=== PATIENT | female | born 1970 | race Caucasian/White ===

== ENCOUNTER 2018-07-22 01:40 | Outpatient (RCR) | payer OTHER, SELFPAY ==
[2018-07-08] MEDS: Normal Saline Flush 10 ML SYR IVP (07:30)
[2018-07-15] MEDS: Normal Saline Flush 10 ML SYR IVP (07:10)
[2018-07-22] MEDS: Normal Saline Flush 10 ML SYR IVP (07:21)
== END 2018-07-29 23:59 | disposition home or self-care (01) ==
LOC: INF 01:40
PROVIDERS: PCP Physician Assistant Medical; Visit Provider Family Medicine
DX: D50.9 Iron deficiency anemia, unspecified (principal)
CPT/HCPCS: 96365; 96366; J1756

== ENCOUNTER 2018-12-25 12:49 | Outpatient (REF) | payer MEDICAID, SELFPAY ==
[2018-12-25 19:47] LABS: Abs Immature Grans 0.01 k/cumm (0.0-0.09); Absolute Basophil Count 0.05 k/cumm (0.0-0.2); Absolute Eosinophil Count 0.18 k/cumm (0.0-0.7); Absolute Lymphocyte Count 0.84 k/cumm (1.2-3.4); Absolute Monocyte Count 0.62 k/cumm (0.11-0.7); Absolute Neutrophil Count 3.91 k/cumm (1.2-6.7); Basophils % 0.9; Eosinophils % 3.2; HCT 41.6 % (36.0-46.0); HGB 13.9 g/dL (12.0-15.5); Immature Grans % 0.2; Mean Corp. HGB Concentration 33.4 g/dL (32.0-36.0); Mean Corpuscular Volume 92.9 fL (80-95); Mean Platelet Volume 11.9 fL (8.0-11.0); Monocytes % 11.1; Neutrophils % 69.6; Platelet Count 257 x1000/uL (130-400); RBC 4.48 m/cumm (4.00-5.20); RBC Distribution Width 12.8 % (11.7-14.6); White Blood Cell Count 5.61 k/cumm (4.4-10.8)
[2018-12-25 20:16] LABS: TSH 2.29 uIU/mL (0.358-3.74)
[2018-12-25 20:27] LABS: Cholesterol 255 mg/dL (50-200); HDL Cholesterol 44 mg/dL (40-60); LDL CHOLESTEROL 178 mg/dL (<100); Triglyceride 170 mg/dL (30-150)
[2018-12-28 10:10] LABS: Anion Gap 13.9 mmol/L (3-11); BUN 13 mg/dL (7-18); CO2 23.1 mmol/L (21.0-32.0); CREATININE 0.81 mg/dL (0.55-1.02); Calcium 9.6 mg/dL (8.5-10.1); Chloride 101 mmol/L (98-107); Glucose 97 mg/dL (70-100); Sodium 138 mmol/L (136-145)
== END 2018-12-25 13:09 ==
LOC: NCHCN 12:49
PROVIDERS: PCP Physician Assistant Medical; Visit Provider Physician Assistant Medical
DX: I10 Essential (primary) hypertension (principal); D50.9 Iron deficiency anemia, unspecified; E03.9 Hypothyroidism, unspecified
CPT/HCPCS: 80048; 80061; 83721; 84443; 85025

== ENCOUNTER 2019-06-28 21:43 | Outpatient (REF) | payer MEDICAID, SELFPAY ==
[2019-06-28 21:59] LABS: Abs Immature Grans 0.01 k/cumm (0.0-0.09); Absolute Basophil Count 0.03 k/cumm (0.0-0.2); Absolute Eosinophil Count 0.18 k/cumm (0.0-0.7); Absolute Lymphocyte Count 1.02 k/cumm (1.2-3.4); Absolute Monocyte Count 0.39 k/cumm (0.11-0.7); Absolute Neutrophil Count 5.11 k/cumm (1.2-6.7); Basophils % 0.4; Eosinophils % 2.7; HGB 11.3 g/dL (12.0-15.5); Immature Grans % 0.1; Lymphocytes % 15.1; Mean Corp. HGB Concentration 32.3 g/dL (32.0-36.0); Mean Corpuscular Hemoglobin 28.8 pg (27.0-33.0); Mean Corpuscular Volume 89.1 fL (80-95); Mean Platelet Volume 11.2 fL (8.0-11.0); Monocytes % 5.8; Neutrophils % 75.9; Platelet Count 380 x1000/uL (130-400); RBC 3.93 m/cumm (4.00-5.20); RBC Distribution Width 13.7 % (11.7-14.6); White Blood Cell Count 6.74 k/cumm (4.4-10.8)
[2019-06-28 22:06] LABS: Calculated LDL 169 mg/dL; Cholesterol 240 mg/dL (50-200); HDL Cholesterol 43 mg/dL (40-60); Triglyceride 143 mg/dL (30-150)
== END 2019-06-28 22:03 ==
LOC: NCHCN 21:43
PROVIDERS: PCP Physician Assistant Medical; Visit Provider Physician Assistant Medical
DX: Z13.220 Encounter for screening for lipoid disorders (principal); Z00.00 Encounter for general adult medical examination without abnormal findings; D50.9 Iron deficiency anemia, unspecified
CPT/HCPCS: 80061; 85025

== ENCOUNTER 2020-03-16 09:07 | Outpatient (REF) | payer MEDICAID, SELFPAY ==
[2020-03-16 19:26] LABS: ALT 32 U/L (14-59); AST 20 U/L (15-37); Albumin 3.9 g/dL (3.4-5.0); Alkaline Phosphatase 74 U/L (46-116); BUN 16 mg/dL (7-18); Bilirubin, Total 0.2 mg/dL (0.2-1.0); CREATININE 0.83 mg/dL (0.55-1.02); Calcium 9.5 mg/dL (8.5-10.1); Calculated LDL 95 mg/dL (<100); Chloride 103 mmol/L (98-107); Cholesterol 151 mg/dL (<200); Glucose 102 mg/dL (74-106); HDL Cholesterol 40 mg/dL (40-60); Potassium 3.7 mmol/L (3.5-5.1); Sodium 139 mmol/L (136-145); Total Protein 6.9 g/dL (6.4-8.2); Triglyceride 83 mg/dL (<150)
== END 2020-03-16 09:27 ==
LOC: NCHCN 09:07
PROVIDERS: PCP Physician Assistant Medical; Visit Provider Physician Assistant Medical
DX: I25.10 Atherosclerotic heart disease of native coronary artery without angina pectoris (principal)
CPT/HCPCS: 80053; 80061

== ENCOUNTER 2020-12-08 16:13 | Outpatient (REF) | payer MEDICAID, SELFPAY ==
[2020-12-08 18:34] LABS: Abs Immature Grans 0.01 10^3/uL (0.0-0.06); Absolute Basophil Count 0.09 10^3/uL (0.0-0.2); Absolute Eosinophil Count 0.09 10^3/uL (0.0-0.7); Absolute Lymphocyte Count 1.09 10^3/uL (1.2-3.4); Absolute Monocyte Count 0.57 10^3/uL (0.1-0.8); Basophils % 1.2; Eosinophils % 1.2; HCT 37.4 % (36.0-46.0); HGB 12.1 g/dL (11.2-15.7); Immature Grans % 0.1; Lymphocytes % 14.2; MCH 27.6 pg (27.0-33.0); MCHC 32.4 % (32.0-36.0); MCV 85.4 fL (80-95); MPV 11.3 fL (8.0-11.0); Monocytes % 7.5; Neutrophils % 75.8; Nucleated RBC 0 %; Platelet Count 391 10^3/uL (130-400); RBC 4.38 10^6/uL (3.93-5.22); RDW-SD 46.9 fL; WBC 7.65 10^3/uL (4.4-10.8)
[2020-12-08 19:07] LABS: ALT 20 U/L (14-59); AST 15 U/L (15-37); Albumin 3.8 g/dL (3.4-5.0); Alkaline Phosphatase 76 U/L (46-116); Anion Gap 17.4 mmol/L (3-11); BUN 19 mg/dL (7-18); Bilirubin, Total 0.4 mg/dL (0.2-1.0); CO2 19.6 mmol/L (21.0-32.0); CREATININE 0.8 mg/dL (0.55-1.02); Calcium 9.7 mg/dL (8.5-10.1); Calculated LDL 135 mg/dL (<100); Chloride 99 mmol/L (98-107); Cholesterol 193 mg/dL (<200); Glucose 83 mg/dL (74-106); HDL Cholesterol 37 mg/dL (40-60); Potassium 3.3 mmol/L (3.5-5.1); Sodium 136 mmol/L (136-145); TSH 1.99 uIU/mL (0.36-3.74); Total Protein 7.2 g/dL (6.4-8.2); Triglyceride 108 mg/dL (<150)
== END 2020-12-08 16:14 | disposition home or self-care (01) ==
LOC: NCHCN 16:13
PROVIDERS: PCP Physician Assistant Medical; Visit Provider Physician Assistant Medical
DX: E03.9 Hypothyroidism, unspecified (principal); I10 Essential (primary) hypertension; E78.5 Hyperlipidemia, unspecified; D50.9 Iron deficiency anemia, unspecified
CPT/HCPCS: 80053; 80061; 84443; 85025

== ENCOUNTER 2021-03-09 10:38 | Outpatient (REF) | payer MEDICAID, SELFPAY ==
[2021-03-09 14:35] LABS: Anion Gap 6.9 mmol/L (3-11); BUN 18 mg/dL (7-18); CO2 28.1 mmol/L (21.0-32.0); CREATININE 0.7 mg/dL (0.55-1.02); Calcium 9.3 mg/dL (8.5-10.1); Chloride 107 mmol/L (98-107); Glucose 103 mg/dL (74-106); Potassium 3.6 mmol/L (3.5-5.1); Sodium 142 mmol/L (136-145)
== END 2021-03-09 10:39 | disposition home or self-care (01) ==
LOC: NCHCN 10:38
PROVIDERS: PCP Physician Assistant Medical; Visit Provider Physician Assistant Medical
DX: I10 Essential (primary) hypertension (principal)
CPT/HCPCS: 80048

== ENCOUNTER 2021-04-13 12:01 | Outpatient (REF) | payer MEDICAID, SELFPAY ==
--- NOTE | 2021-04-13 10:10 | PAPFT_PTH ---
PATIENT: Jaclyn Carver LOC: [facility]#:[id number] AGE/SX: 50/F ROOM: RE04/13/[address]: Maryanne Buckley : 1970 BED: DIS: 04/13/2021 SPEC #: [id number] RECD: 04/16/21 13:05 STATUS: ARCELIA REМарина #: [id number] CHAPIS: 04/13/21 10:[address]: Maryanne Buckley DEPT: [facility] Cytology RECD BY: Sarah Aguirre Tissues: 1 - CX/ENDOCX FOR PAP SMEARS Procedures: PAP THIN PREP/UVM Screening HPV DNA PROBE Comments: [id number]
== END 2021-04-13 12:02 | disposition home or self-care (01) ==
LOC: NCHCN 12:01
PROVIDERS: PCP Physician Assistant Medical; Visit Provider Physician Assistant Medical
DX: Z12.4 Encounter for screening for malignant neoplasm of cervix (principal); Z00.00 Encounter for general adult medical examination without abnormal findings; Z11.51 Encounter for screening for human papillomavirus (HPV)
CPT/HCPCS: 88142; 87624

== ENCOUNTER 2021-12-17 02:13 | Outpatient (CLI) | payer SELFPAY ==
--- NOTE | 2021-12-17 | DI.RAD_ITS ---
Exam(s) RF BARIUM SWALLOW EXAM: RF BARIUM SWALLOW CLINICAL HISTORY: DYSPHAGIA,R13.10 TECHNIQUE: 2D and realtime digital imaging was performed. CONTRAST MATERIAL: Oral barium Oral water soluble contrast was administered. COMPARISON: CR ABD FLAT UPRIGHT PA CHEST from 12/08/2014 FINDINGS: This patient has history of apparent esophageal stricture for which she underwent endoscopic dilatati on over 5 years ago. Feels some returning symptoms. ESOPHAGRAM: This study was performed both standing and recumbent, using single and air contrast technique. Swallowing mechanism appears intact and there was no aspiration evident. No obvious hypertense upper esophageal sphincter. Although not evident during actual fluoroscopy, review of the images after the procedure reveal a claire y thin web at C3 level on a single image, possibly significant. Remainder of the soft against appears normal with normal caliber. GE junction appears unremarkable w ith no evidence of hiatal hernia nor Schatzki ring. There are no diverticuli evident in distal esoph getachew. No evidence of achalasia. Few transient tertiary waves were noted. There is no evidence of o bvious reflux.. Surgical clips from prior cholecystectomy were noted. IMPRESSION: 1. GE junction appears unremarkable. No evidence of hiatal hernia, Schatzki ring, nor stricture at t his level. 2. 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 No aspiration evident. RADIATION DOSE DELIVERED: Ka,r= mGy
[2021-12-17] MEDS: Barium Sulfate 60% W/V 355 ML BTL PO (09:56)
== END 2021-12-17 02:33 ==
LOC: DI 02:17
PROVIDERS: PCP Physician Assistant Medical; Visit Provider Physician Assistant Medical
DX: R13.10 Dysphagia, unspecified (principal)
CPT/HCPCS: 74221; J3490

== ENCOUNTER 2022-10-23 17:54 | Outpatient (REF) | payer BC, SELFPAY ==
[2022-10-23 21:01] LABS: ALT 21 U/L (14-59); AST 24 U/L (15-37); Albumin 3.7 g/dL (3.4-5.0); Alkaline Phosphatase 85 U/L (46-116); Anion Gap 10.2 mmol/L (3-11); BUN 19 mg/dL (7-18); CO2 25.8 mmol/L (21.0-32.0); CREATININE 0.6 mg/dL (0.55-1.02); Calcium 10.2 mg/dL (8.5-10.1); Calculated LDL 159 mg/dL (<100); Chloride 104 mmol/L (98-107); Cholesterol 246 mg/dL (<200); Estimated GFR 107.26 (mL/min/1.73m2); Glucose 97 mg/dL (74-106); HDL Cholesterol 58 mg/dL (40-60); Potassium 3.4 mmol/L (3.5-5.1); Sodium 140 mmol/L (136-145); Total Protein 7.2 g/dL (6.4-8.2); Triglyceride 145 mg/dL (<150)
[2022-10-23 23:33] LABS: TSH 4.41 uIU/mL (0.36-3.74)
[2022-10-23 23:47] LABS: Bilirubin, Total 0.2 mg/dL (0.2-1.0)
== END 2022-10-23 17:55 | disposition home or self-care (01) ==
LOC: NCHCN 17:54
PROVIDERS: PCP Physician Assistant Medical; Visit Provider Physician Assistant Medical
DX: Z00.00 Encounter for general adult medical examination without abnormal findings (principal); E03.9 Hypothyroidism, unspecified; I25.10 Atherosclerotic heart disease of native coronary artery without angina pectoris
CPT/HCPCS: 80053; 80061; 84443

== ENCOUNTER 2023-01-14 15:24 | Outpatient (REF) | payer BC, SELFPAY ==
[2023-01-14 16:04] LABS: HGB 9.1 g/dL (11.2-15.7)
== END 2023-01-14 15:25 | disposition home or self-care (01) ==
LOC: NCHCN 15:24
PROVIDERS: PCP Physician Assistant Medical; Visit Provider Physician Assistant Medical
DX: Z00.00 Encounter for general adult medical examination without abnormal findings (principal); D64.9 Anemia, unspecified
CPT/HCPCS: 85018

== ENCOUNTER 2024-02-04 17:59 | Outpatient (REF) | payer BC, SELFPAY ==
[2024-02-04 19:49] LABS: Abs Immature Grans 0.03 10^3/uL (0.0-0.06); Absolute Basophil Count 0.06 10^3/uL (0.0-0.2); Absolute Eosinophil Count 0.09 10^3/uL (0.0-0.7); Absolute Lymphocyte Count 1.17 10^3/uL (1.2-3.4); Absolute Monocyte Count 0.37 10^3/uL (0.1-0.8); Absolute Neutrophil Count 3.72 10^3/uL (1.2-6.7); Basophils % 1.1 %; Eosinophils % 1.7 %; HCT 33.7 % (36.0-46.0); HGB 10.4 g/dL (11.2-15.7); Immature Grans % 0.6 %; Lymphocytes % 21.5 %; MCH 27.4 pg (27.0-33.0); MCHC 30.9 % (32.0-36.0); MCV 89 fL (80-95); MPV 10.7 fL (8.0-11.0); Monocytes % 6.8 %; Neutrophils % 68.3 %; Platelet Count 295 10^3/uL (130-400); RDW 14.1 % (11.7-14.6); RDW-SD 45.6 fL; WBC 5.44 10^3/uL (4.4-10.8)
[2024-02-04 20:18] LABS: ALT 22 U/L (14-59); AST 16 U/L (15-37); Albumin 4.1 g/dL (3.4-5.0); Alkaline Phosphatase 77 U/L (46-116); Anion Gap 8.4 mmol/L (3-11); BUN 14 mg/dL (7-18); Bilirubin, Total 0.2 mg/dL (0.2-1.0); CO2 29.6 mmol/L (21.0-32.0); CREATININE 0.8 mg/dL (0.55-1.02); Calcium 10.7 mg/dL (8.5-10.1); Chloride 106 mmol/L (98-107); Glucose 88 mg/dL (74-106); Potassium 4.4 mmol/L (3.5-5.1); Sodium 144 mmol/L (136-145); TSH (W/Ref FT4) 3.44 uIU/mL (0.36-3.74); Total Protein 7.5 g/dL (6.4-8.2)
== END 2024-02-04 18:00 | disposition home or self-care (01) ==
LOC: NCHCN 17:59
PROVIDERS: PCP Physician Assistant Medical; Visit Provider Physician Assistant Medical
DX: K92.89 Other specified diseases of the digestive system (principal); E03.9 Hypothyroidism, unspecified
CPT/HCPCS: 80053; 84443; 85025

== ENCOUNTER 2024-02-20 07:08 | Emergency (ER) | payer BC, SELFPAY ==
[2024-02-20 07:11] VITALS: BP 142/93; PULSE 72; RESP 16; TEMP 36.9; O2SAT 98
[2024-02-20 07:28] VITALS: BP 142/93; PULSE 72; RESP 16; TEMP 36.9; O2SAT 98
--- NOTE | 2024-02-20 07:30 | RT.EKG_ITS ---
APPROVED REPORT Exam: Resting ECG Reason for Exam: chest burning Patient Location: E HR:59 bpm ECG Measurements Heart Rate 59 AXIS AK 166 P 67 QRSd 105 QRS 83 QT 414 T 79 QTc 412 Conclusion Sinus bradycardia...rate< [address] elevation, anterior leads...ST >0.15mV in V1-V4 Physician: Minimal non-tombstoning ST elevation. Inconsistent with STEMI. No Depressions
[2024-02-20] MEDS: Famotidine 20 MG/2 ML VIAL IVP (07:52)
[2024-02-20] MEDS: Pantoprazole 40 MG VIAL IVP (07:53)
--- NOTE | 2024-02-20 07:55 | ED.GENADUL_ITS ---
Discharge Plan Disposition Patient Disposition: Home Condition: Good Discharge Details Clinical Impression: Pancreatitis, GERD without esophagitis Primary Care Provider: Maryanne Buckley ED Provider: Ace Hernandez Home Meds and New Rx's Prescriptions: New famotidine 40 mg tablet 40 mg PO BID Qty: 60 0RF Continued aspirin [Adult Aspirin Regimen] 81 mg tablet,delayed release (DR/EC) 81 mg PO DAILY zaleplon 10 mg capsule 10 mg PO QHS PRN Rx Instructions: must avoid high-fat meal/food immediately before taking dose sumatriptan succinate 100 mg tablet 100 mg PO ONCE clonazepam 0.5 mg tablet 0.5 mg PO BID rosuvastatin 5 mg tablet 5 mg PO DAILY aripiprazole 5 mg tablet 5 mg PO DAILY lisinopril 20 mg tablet 5 mg PO DAILY scopolamine base [Transderm-Scop] 1 mg over 3 days patch 3 day 1 patch transdermal Q3D PRN escitalopram oxalate 10 mg tablet 10 mg PO DAILY omeprazole [Prilosec] 40 MG capsule,delayed release(DR/EC) 1 cap PO DAILY levothyroxine [Synthroid] 50 MCG tablet 50 mcg PO DAILY multivitamin 1 EACH capsule 1 cap PO HS cetirizine [Zyrtec] 10 MG capsule 10 mg PO DAILY escitalopram oxalate [Lexapro] 20 MG tablet 20 mg PO DAILY calcium carb and citrate-vitD3 1 EACH tablet extended release pantoprazole [Protonix] [address] for susp in packet 40 mg PO DAILY AM Qty: 30 0RF ondansetron 4 MG tablet,disintegrating 4 mg PO Q6H PRN PRN (Reason: Nausea / Vomiting) Qty: 15 0RF Discontinued ibuprofen 800 MG tablet 800 mg PO Q8H PRN Qty: 30 Discharge Instructions Instructions: Pancreatitis (ED), GERD (Gastroesophageal Reflux Disease) (ED) Additional Instructions: As we discussed together, my chief concern is that your symptoms are still secondary to notable reflux and GERD. The sensation for vomiting is likely brought about more so and made worse by your mild pancreatitis. Please continue to stick with a very bland diet, high in fluids, low in fat, sugars, oils, tomato-based products, and citrus products over the next few weeks. Please continue to take your previous medications that were prescribed, and also take the famotidine now as prescribed. Please take your Carafate 2 hours before going to bed. Please use Maalox 2-3 times per day as needed for intermittent symptom management. Please avoid any mint based products. Please take the Zofran as needed for nausea. Please follow-up closely with your primary care provider and surgeon for your EGD. If you notice any worsening of your symptoms, or any new symptoms such as vomiting, diarrhea, fever, chills, shortness of breath, chest pain, numbness, weakness, or fainting , please return immediately to the emergency department for reevaluation. Please follow up with your primary care provider as soon as possible for reassessment and reevaluation. As always, it was a pleasure participating in your medical care today. Stand Alone Forms: Work Release Referrals: Maryanne Buckley PA [Primary Care Provider] - Discharge Data Discharge Date/Time-TO BE ENTERED AT DEPARTURE: 02/20/24 09:01 HPI General Date/Time Provider Initiated Documentation: 02/20/24 07:16 . HPI Narrative: This is a pleasant 53-year-old female who presents today for evaluation of burning sensation in the epigastrium. Patient states that about 2 weeks ago she had an episode of vomiting blood, she went weeks Hospital where she was noted to be mildly anemic which is chronic for her. She had a eventual resolution of her symptoms, and was discharged home. Her primary care provider then prescribed Protonix 40 mg daily and Carafate 3 times per day. She has an outpatient EGD scheduled for March 16. She has noted over the last few days that her symptoms and burning have continued. She has not had any more hematemesis. She will occasionally vomit just a little bit. It is worse in the morning when she wakes up and at night. If she has completely eliminated tomato-based products, spicy foods, carbonated beverages, or citrus foods from her diet. She states that she feels that the Carafate helps the most. She is presenting for further evaluation as her symptoms have been continuing. No other complaints at this time. No diarrhea. No dark or tarry stools. She denies any other complaints. No chest pain or exertional chest discomfort. No shortness of breath. No history of heart attack/NV/stroke. Related Data Home Medications Medication Instructions Recorded Confirmed cetirizine 10 mg capsule (Zyrtec) 10 mg PO DAILY 01/21/14 12/08/14 levothyroxine 50 mcg tablet 50 mcg PO DAILY 01/21/14 12/08/14 (Synthroid) multivitamin 1 cap PO HS 01/21/14 12/08/14 omeprazole 40 mg capsule,delayed 1 cap PO DAILY 01/21/14 12/08/14 release (Prilosec) calcium carb,cit ER 600 mg-vit D3 12/08/14 12/08/14 12.5 mcg (500 unit) tablet,ext.rel escitalopram oxalate 20 mg tablet 20 mg PO DAILY 12/08/14 12/08/14 (Lexapro) ondansetron 4 mg disintegrating 4 mg PO Q6H PRN PRN Nausea / 12/08/14 tablet Vomiting ##15 pantoprazole 40 mg granules 40 mg PO DAILY AM ##30 12/08/14 delayed-release for susp in packet (Protonix) aripiprazole 5 mg tablet 5 mg PO DAILY 01/15/22 aspirin 81 mg tablet,delayed 81 mg PO DAILY 01/15/22 release (Adult Aspirin Regimen) clonazepam 0.5 mg tablet 0.5 mg PO BID 01/15/22 escitalopram oxalate 10 mg tablet 10 mg PO DAILY 01/15/22 lisinopril 20 mg tablet 5 mg PO DAILY 01/15/22 rosuvastatin 5 mg tablet 5 mg PO DAILY 01/15/22 scopolamine base 1 mg over 3 days 1 patch transdermal Q3D PRN 01/15/22 transdermal patch (Transderm-Scop) sumatriptan succinate 100 mg tablet 100 mg PO ONCE 01/15/22 zaleplon 10 mg capsule 10 mg PO QHS PRN 01/15/22 famotidine 40 mg tablet 40 mg PO BID #60 tabs 02/20/24 Previous Rx's Medication Instructions Recorded ondansetron 4 mg disintegrating 4 mg PO Q6H PRN PRN Nausea / 12/08/14 tablet Vomiting ##15 pantoprazole 40 mg granules 40 mg PO DAILY AM ##30 12/08/14 delayed-release for susp in packet (Protonix) famotidine 40 mg tablet 40 mg PO BID #60 tabs 02/20/24 Allergies Allergy/AdvReac Type Severity Reaction Status Date / Time NSAIDS (Non-Steroidal Allergy Severe Other (See Verified 01/15/22 13:53 Anti-Inflamma Comment) prednisone Allergy Unknown Verified 01/15/22 13:53 adhesive AdvReac Mild Skin Rash Unverified 12/08/14 17:20 enviornmental Allergy Mild irritated Uncoded 12/08/14 17:20 eyes,sneezing General Stated Complaint: Nausea/Vomit/Diar BRAXTON: 3 Review of Systems All systems reviewed & are unremarkable except as noted in HPI and below Exam Narrative Exam Narrative: 1.Const: Well-nourished, Well-developed, appearing stated age 2.Eyes: PERRL, no conjunctival injection, and symmetrical lids. 3.ENT: Atraumatic external nose and ears. Moist MM. Neck: Symmetric, trachea midline, No thyromegaly. 4.CVS: +S1/S2, No murmurs or gallops. Peripheral pulses 2+ and equal in all e xtremities. Brisk capillary refill in all extremities. 5.RESP: Unlabored respiratory effort. Clear to auscultation bilaterally. No wheezes rales or rhonchi 6.GI: Soft, nondistended, minimal epigastric discomfort, No hepatosplenomegaly. No guarding or rebound. No pain at McBurney's point COVID negative Kc sign 7.MSK: Normocephalic/Atraumatic, Extremities w/o deformity or ttp No cyanosis or clubbing, Normal movement of all extremities 8.Skin: Warm, Dry. No rashes or lesions. 9.Neuro: manager collection II-XII grossly intact. Sensation grossly intact, no focal neurologic deficits. 10.Psych: (AAO) x3. Appropriate mood and affect Course Vital Signs Vital signs: Vital Signs Temperature 36.9 C 02/20/24 07:11 Pulse 72 02/20/24 07:11 Respiratory Rate 16 02/20/24 07:11 Blood Pressure 142/93 H 02/20/24 07:11 Pulse Oximetry 98 02/20/24 07:11 Temperature 36.9 C 02/20/24 07:28 Pulse 72 02/20/24 07:28 Respiratory Rate 16 02/20/24 07:28 Respiratory Effort Normal, Non-Labored 02/20/24 07:28 Blood Pressure 142/93 H 02/20/24 07:28 Blood Pressure Position Sitting 02/20/24 07:28 Pulse Oximetry 98 02/20/24 07:28 Oxygen Delivery Method Room Air 05/24/24 07:28 Oxygen Flow Rate 0 02/20/24 07:28 Pain Level 6 02/20/24 07:28 Medical Decision Making This is a pleasant 53-year-old female who presents today for evaluatio n of burning sensation in the epigastrium. Patient states that about 2 weeks ago she had an episode of vomiting blood, she went weeks Hospital where she was noted to be mildly anemic which is chronic for her. She had a eventual resolution of her symptoms, and was discharged home. Her primary care provider then prescribed Protonix 40 mg daily and Carafate 3 times per day. She has an outpatient EGD scheduled for March 16. She has noted over the last few days that her symptoms and burning have continued. She has not had any more hematemesis. She will occasionally vomit just a little bit. It is worse in the morning when she wakes up and at night. If she has completely eliminated tomato-based products, spicy foods, carbonated beverages, or citrus foods from her diet. She states that she feels that the Carafate helps the most. She is presenting for further evaluation as her symptoms have been continuing. No other complaints at this time. No diarrhea. No dark or tarry stools. She denies any other complaints. No chest pain or exertional chest discomfort. No shortness of breath. No history of heart attack/NV/stroke. Exam demonstrates well-appearing female, minimal epigastric discomfort, no subcutaneous crepitus in the neck or chest. Patient seems to be up to regards to dietary changes. She is still taking mint, and I have advised her to avoid this. Concern for potential helical back to pylori. Further testing will be indicated when she has her EGD. In the meantime I do feel that additional treatment with famotidine on top of the Protonix and Carafate is indicated. Will start her on a prescription of this as well. Recommend intermittent Maalox as needed for as needed symptom management. Recommend taking the Carafate after dinner about an hour or so before bed as she has significant nighttime symptoms. Otherwise at this stage it feels that the patient is well-managed and receiving appropriate therapy. We will get basic labs to evaluate for worsening hemoglobin disturbance or pancreatitis. Symptoms appear inconsistent with ACS. EKG was ordered, and shows no evidence of significant cardiac abnormality. Slight ST elevation in V1 and V2 with no depression. Symptoms inconsistent with STEMI. We will give a GI cocktail, famotidine IV, monitor closely and reassess. 10:52 AM Laboratory workup has returned, no white count, hemoglobin stable. Electrolytes normal. Lipase slightly elevated at 195. Repeat exam continues to show no evidence of an acute surgical abdomen. Patient able to tolerate p.o. well. She is feeling much better after GI cocktail. At this time patient looks well, she has been rehydrated, and shows no other concerning abnormality. Patient stable for discharge. Troponin and EKG are normal. Symptoms inconsistent with ACS. Patient feels well. Will stick with plan. Recommend changing Carafate timing, will add Maalox to regular use. Will give Zofran for home use with the mild pancreatitis for p.o. maintenance. Will add famotidine to daily prescriptions. Recommend close follow-up with surgery for EGD. Recommend close follow-up with family physician. Discussed avoidance of mint. Discussed continuation of diet that she is on. Discussed red flags which to return. I have extensively reviewed the treatment plan and discharge instructions with the patient. I have addressed all patient concerns at this time. The patient was made aware of what symptoms to monitor for that would warrant a return to the emergency department. Discussed the plan with the patient, they demonstrate verbal understanding and agreement with our assessment and plan at this time. The documentation in this chart was dictated using [employer] dictation software. Please excuse any dictation errors. Quality:SDOH Health Related Social Needs: No Data to Display PFSH All Active Problems (Updated 02/20/24 @ 08:40 by Ace Hernandez DO) GERD without esophagitis (Acute) Pancreatitis (Chronic) GERD (gastroesophageal reflux disease) (Chronic) Anemia (Chronic) Dysphagia (Acute) Screening for colon cancer (Acute) Medical History CAD (coronary artery disease) Migraine Dysmenorrhea (04/27/14) Endocervical polyp (04/27/14) Complex ovarian cyst (04/27/14) Seasonal/ environmental allergies Hypothyroidism Dysmenorrhea Depression Anxiety Menorrhagia Cervical polyp Essential hypertension Surgical History Cholecystectomy 2014 Family History Mother No problems noted. Father No problems noted. Other Diabetes Heart disease Mental disorder Myocardial infarction Personal history of malignant neoplasm Social History Smoking/Tobacco Use Status: Never Smoking risk assessment performed?: Yes Alcohol Intake: never Drug use: Never Substance use type: does not use Housing: house Do you feel safe at home: Yes Do you feel safe in your relationship?: Yes
[2024-02-20 08:04] LABS: Abs Immature Grans 0.01 10^3/uL (0.0-0.06); Absolute Basophil Count 0.05 10^3/uL (0.0-0.2); Absolute Eosinophil Count 0.25 10^3/uL (0.0-0.7); Absolute Monocyte Count 0.42 10^3/uL (0.1-0.8); Absolute Neutrophil Count 3.37 10^3/uL (1.2-6.7); Eosinophils % 4.9 %; HCT 32.6 % (36.0-46.0); HGB 10.1 g/dL (11.2-15.7); Immature Grans % 0.2 %; Lymphocytes % 19.6 %; MCH 27.4 pg (27.0-33.0); MCV 89 fL (80-95); MPV 10.2 fL (8.0-11.0); Monocytes % 8.2 %; Neutrophils % 66.1 %; Platelet Count 221 10^3/uL (130-400); RBC 3.68 10^6/uL (3.93-5.22); RDW 14.1 % (11.7-14.6); RDW-SD 45.7 fL
[2024-02-20 08:25] LABS: ALT 21 U/L (14-59); AST 13 U/L (15-37); Albumin 3.5 g/dL (3.4-5.0); Alkaline Phosphatase 62 U/L (46-116); Anion Gap 3.4 mmol/L (3-11); BUN 13 mg/dL (7-18); Bilirubin, Total 0.2 mg/dL (0.2-1.0); CO2 28.6 mmol/L (21.0-32.0); CREATININE 0.8 mg/dL (0.55-1.02); Calcium 9.4 mg/dL (8.5-10.1); Chloride 106 mmol/L (98-107); Glucose 107 mg/dL (74-106); Lipase 195 U/L (16-77); Potassium 3.5 mmol/L (3.5-5.1); Sodium 138 mmol/L (136-145); Total Protein 6.8 g/dL (6.4-8.2); Troponin I < 50 ng/L (< or =60)
[2024-02-20 08:55] VITALS: BP 143/81; PULSE 60; RESP 16; O2SAT 97
[2024-02-20] MEDS: Ondansetron O.D.T. 4 MG TABEF, 3 TABS/BTL PO (08:59)
--- NOTE | 2024-02-21 10:07 | NUR.NOTE ---
patient states that she was seen yesterday for pancreatitis. Last night began having severe pain. Advised patient that she needed to return to ED for reevaluation.
== END 2024-02-20 09:01 | disposition home or self-care (01) ==
PROVIDERS: Emergency Provider Student in an Organized Health Care Education/Training Program; PCP Physician Assistant Medical
DX: K21.9 Gastro-esophageal reflux disease without esophagitis (principal); K85.90 Acute pancreatitis without necrosis or infection, unspecified; R11.10 Vomiting, unspecified
CPT/HCPCS: 36415; 80053; 83690; 93005; 96374; 96375; 99284; 84484; 85025; 93010; 99283; J2470

== ENCOUNTER 2024-02-21 10:57 | Emergency (ER) | payer BC, SELFPAY ==
[2024-02-21] VITALS (7 sets, daily range): BP systolic 127–148; BP diastolic 68–81; PULSE 61–73; RESP 16–18; TEMP 37; O2SAT 95–96
[2024-02-21 11:57] LABS: Abs Immature Grans 0.02 10^3/uL (0.0-0.06); Absolute Basophil Count 0.03 10^3/uL (0.0-0.2); Absolute Eosinophil Count 0.03 10^3/uL (0.0-0.7); Absolute Lymphocyte Count 0.56 10^3/uL (1.2-3.4); Absolute Monocyte Count 0.33 10^3/uL (0.1-0.8); Absolute Neutrophil Count 7.05 10^3/uL (1.2-6.7); Basophils % 0.4 %; Eosinophils % 0.4 %; HCT 31.6 % (36.0-46.0); HGB 10.1 g/dL (11.2-15.7); Immature Grans % 0.2 %; MCH 27.8 pg (27.0-33.0); MCV 87 fL (80-95); MPV 10.1 fL (8.0-11.0); Monocytes % 4.1 %; Neutrophils % 87.9 %; Platelet Count 237 10^3/uL (130-400); RBC 3.63 10^6/uL (3.93-5.22); RDW 14.1 % (11.7-14.6); RDW-SD 44.8 fL; WBC 8.02 10^3/uL (4.4-10.8)
[2024-02-21] MEDS: Lactated Ringers 1,000 ML 125 ML IV (12:05)
[2024-02-21 12:13] LABS: ALT 22 U/L (14-59); AST 14 U/L (15-37); Albumin 3.6 g/dL (3.4-5.0); Alkaline Phosphatase 71 U/L (46-116); Anion Gap 7.1 mmol/L (3-11); BUN 13 mg/dL (7-18); Bilirubin, Total 0.3 mg/dL (0.2-1.0); CO2 28.9 mmol/L (21.0-32.0); CREATININE 0.8 mg/dL (0.55-1.02); Calcium 9.1 mg/dL (8.5-10.1); Chloride 104 mmol/L (98-107); Glucose 111 mg/dL (74-106); Lipase 23 U/L (16-77); Magnesium 2.6 mg/dL (1.8-2.4); Potassium 3.9 mmol/L (3.5-5.1); Sodium 140 mmol/L (136-145)
--- NOTE | 2024-02-21 12:30 | DI.CT_ITS ---
Exam(s) CT ABDOMEN PELVIS W EXAM: CT ABDOMEN PELVIS W CLINICAL HISTORY: abd pain, llq ttp. TECHNIQUE: Imaging Protocol: Axial computed tomography images with coronal and sagittal reformatted images were created and reviewed CONTRAST MATERIAL: Intravenous: Omnipaque 350 Contrast volume:95 ml Oral: no COMPARISON: No exams were available for comparison FINDINGS: ABDOMEN and PELVIS: Lung Bases: No acute findings. Small hiatal hernia. Liver: Normal density. No suspicious mass. Gallbladder and biliary tract: Status post cholecystectomy. No radiodense calculus. Expected mild i ntrahepatic biliary dilation. Pancreas: Normal density. No abnormal calcifications or inflammatory process. No evidence of mass. Spleen: Normal. Kidneys: Normal size, contour and axis. No radiodense stones. No obstructive uropathy. No suspicious masses seen. Adrenal glands: No masses seen. Vasculature: Abdominal aorta non-dilated. Soft tissues: Unremarkable. Bladder: No gross wall thickening. No calculi.No focal mass. Bowel: Increased quantity of stool throughout the colon. No obstruction. Diverticulosis noted of d escending colon. Wall thickening and surrounding inflammatory changes in the lower descending colon consistent with diverticulitis. Appendix normal. Peritoneal cavity: Free fluid in pelvis. No focal collection. Bones: Mild degenerative and mild scoliosis. Reproductive organs: Unremarkable. Lymph nodes: No pathologically enlarged lymph nodes. IMPRESSION:: Diverticulitis of the lower descending colon. Free fluid but no evidence of perforatio n. RADIATION DOSE DELIVERED: Total DLP DATA REPOSITORY: All CT scans at this facility are submitted to the National Radiology Data Registry (NRDR) Dose Index Registry (DIR) with the [employer] (A[employer]). RADIATION OPTIMIZATION: All CT scans at this facility use at least one of these dose optimization te chniques: automated exposure control; mA and/or kV adjustment per patient size (includes targeted exa ms where dose is matched to clinical indication); or iterative reconstruction.
[2024-02-21] MEDS: HYDROmorphone 2 MG/ML SYR 1 MG IVP (12:45)
[2024-02-21] MEDS: Ondansetron 4 MG/2 ML VIAL IVP (12:45)
--- NOTE | 2024-02-21 12:45 | ED.GENADUL_ITS ---
Discharge Plan Disposition Patient Disposition: Home Condition: Stable Discharge Details Clinical Impression: Acute diverticulitis Primary Care Provider: Maryanne Buckley ED Provider: Salty Hinds Home Meds and New Rx's Prescriptions: New amoxicillin-pot clavulanate 875-125 mg tablet 1 tab PO BID Qty: 19 0RF oxycodone 5 mg capsule 5 mg PO BID PRN (Reason: severe pain (scale score 7-10)) Qty: 6 0RF Continued aspirin [Adult Aspirin Regimen] 81 mg tablet,delayed release (DR/EC) 81 mg PO DAILY zaleplon 10 mg capsule 10 mg PO QHS PRN Rx Instructions: must avoid high-fat meal/food immediately before taking dose sumatriptan succinate 100 mg tablet 100 mg PO ONCE clonazepam 0.5 mg tablet 0.5 mg PO BID rosuvastatin 5 mg tablet 5 mg PO DAILY aripiprazole 5 mg tablet 5 mg PO DAILY lisinopril 20 mg tablet 5 mg PO DAILY scopolamine base [Transderm-Scop] 1 mg over 3 days patch 3 day 1 patch transdermal Q3D PRN escitalopram oxalate 10 mg tablet 10 mg PO DAILY omeprazole [Prilosec] 40 MG capsule,delayed release(DR/EC) 1 cap PO DAILY levothyroxine [Synthroid] 50 MCG tablet 50 mcg PO DAILY multivitamin 1 EACH capsule 1 cap PO HS Zyrtec 10 MG capsule 10 mg PO DAILY escitalopram oxalate [Lexapro] 20 MG tablet 20 mg PO DAILY calcium carb and citrate-vitD3 1 EACH tablet extended release 1 tab PO DAILY pantoprazole [Protonix] [address] for susp in packet 40 mg PO DAILY AM Qty: 30 0RF ondansetron 4 MG tablet,disintegrating 4 mg PO Q6H PRN PRN (Reason: Nausea / Vomiting) Qty: 15 0RF famotidine 40 mg tablet 40 mg PO BID Qty: 60 0RF sucralfate 100 mg/mL suspension 10 ml PO TID Patient Comments: TAKE 10 ML BY MOUTH BEFORE MEAL(S) Discharge Instructions Instructions: Diverticulitis (ED), Diverticulitis Diet (ED) Additional Instructions: Please take full course of antibiotic as prescribed. Please contact your primary care physician to arrange follow-up. Return to the ER immediately for any worsening or new concerning symptoms. Stand Alone Forms: Work Release Referrals: Maryanne Buckley PA [Primary Care Provider] - Discharge Data Discharge Date/Time-TO BE ENTERED AT DEPARTURE: 02/21/24 14:40 HPI General Mode of arrival: ambulatory . Date/Time Provider Initiated Documentation: 02/21/24 11:02 . Limitations to Documentation: no limitations . Information obtained by: patient . HPI Narrative: 53yo female here with chief complaint of abdominal pain. Patient notes pain started yesterday and has persisted. Pain localized to diffuse abdomen described as sharp with also some radiation and achiness in her back. Patient states she was seen here yesterday in the Emergency Department for nausea. She had diagnostic labs performed which revealed pancreatitis. She was discharged with concern for GERD and pancreatitis. She notes she got home and pain worsened. She continues to have nausea. Last took Zofran last night. Related Data Home Medications Medication Instructions Recorded Confirmed cetirizine 10 mg capsule (Zyrtec) 10 mg PO DAILY 01/21/14 02/21/24 levothyroxine 50 mcg tablet 50 mcg PO DAILY 01/21/14 02/21/24 (Synthroid) multivitamin 1 cap PO HS 01/21/14 02/21/24 omeprazole 40 mg capsule,delayed 1 cap PO DAILY 01/21/14 02/21/24 release (Prilosec) calcium carb,cit ER 600 mg-vit D3 1 tab PO DAILY 12/08/14 02/21/24 12.5 mcg (500 unit) tablet,ext.rel escitalopram oxalate 20 mg tablet 20 mg PO DAILY 12/08/14 02/21/24 (Lexapro) ondansetron 4 mg disintegrating 4 mg PO Q6H PRN PRN Nausea / 12/08/14 02/21/24 tablet Vomiting ##15 pantoprazole 40 mg granules 40 mg PO DAILY AM ##30 12/08/14 02/21/24 delayed-release for susp in packet (Protonix) aripiprazole 5 mg tablet 5 mg PO DAILY 01/15/22 02/21/24 aspirin 81 mg tablet,delayed 81 mg PO DAILY 01/15/22 02/21/24 release (Adult Aspirin Regimen) clonazepam 0.5 mg tablet 0.5 mg PO BID 01/15/22 02/21/24 escitalopram oxalate 10 mg tablet 10 mg PO DAILY 01/15/22 02/21/24 lisinopril 20 mg tablet 5 mg PO DAILY 01/15/22 02/21/24 rosuvastatin 5 mg tablet 5 mg PO DAILY 01/15/22 02/21/24 scopolamine base 1 mg over 3 days 1 patch transdermal Q3D PRN 01/15/22 02/21/24 transdermal patch (Transderm-Scop) sumatriptan succinate 100 mg tablet 100 mg PO ONCE 01/15/22 02/21/24 zaleplon 10 mg capsule 10 mg PO QHS PRN 01/15/22 02/21/24 famotidine 40 mg tablet 40 mg PO BID #60 tabs 02/20/24 02/21/24 amoxicillin 875 mg-potassium 1 tab PO BID #19 tabs 02/21/24 clavulanate 125 mg tablet oxycodone 5 mg capsule 5 mg PO BID PRN severe pain (scale 02/21/24 score 7-10) #6 caps sucralfate 100 mg/mL oral 10 ml PO TID 02/21/24 02/21/24 suspension Previous Rx's Medication Instructions Recorded ondansetron 4 mg disintegrating 4 mg PO Q6H PRN PRN Nausea / 12/08/14 tablet Vomiting ##15 pantoprazole 40 mg granules 40 mg PO DAILY AM ##30 12/08/14 delayed-release for susp in packet (Protonix) famotidine 40 mg tablet 40 mg PO BID #60 tabs 02/20/24 amoxicillin 875 mg-potassium 1 tab PO BID #19 tabs 02/21/24 clavulanate 125 mg tablet oxycodone 5 mg capsule 5 mg PO BID PRN severe pain (scale 02/21/24 score 7-10) #6 caps Allergies Allergy/AdvReac Type Severity Reaction Status Date / Time NSAIDS (Non-Steroidal Allergy Severe Other (See Verified 02/21/24 12:36 Anti-Inflamma Comment) prednisone Allergy Unknown Other (See Verified 02/21/24 12:36 Comment) adhesive AdvReac Mild Skin Rash Unverified 02/21/24 12:36 enviornmental Allergy Mild irritated Uncoded 02/21/24 12:36 eyes,sneezing General Stated Complaint: Abd Prob BRAXTON: 3 Review of Systems Constitutional Constitutional: Denies fever(s) Gastrointestinal Gastrointestinal: Reports as per HPI, Denies melena, Denies hematochezia and Reports nausea Exam Const General: cooperative and no acute distress HENHI Mouth: moist mucous membranes Eyes Conjunctivae: normal conjunctivae Sclera: normal sclerae Neck Neck: supple Resp Auscultation: clear to auscultation bilaterally, no rales, no rhonchi and no wheezes Cardio Rate: regular rate and not tachycardic Rhythm: regular rhythm Heart Sounds: murmur systolic I/ and other (mitral) GI Inspection: non-distended Palpation: soft, not firm, no guarding, no masses, not rigid and tender (diffuse, worse LLQ) with no rebound tenderness Auscultation: normal bowel sounds Skin General skin exam: no rashes or lesions noted Neuro General: patient alert, patient awake and tone normal Extrem General: no edema Psych Appearance: grossly normal Mental Status: mental status grossly normal Course Vital Signs Vital signs: Vital Signs Temperature 37.0 C 02/21/24 10:59 Pulse 73 02/21/24 10:59 Respiratory Rate 18 02/21/24 10:59 Blood Pressure 127/81 02/21/24 10:59 Pulse Oximetry 96 02/21/24 10:59 Temperature 37.0 C 02/21/24 11:04 Temperature Source Temporal Artery Scan 02/21/24 11:04 Pulse 65 02/21/24 12:00 Respiratory Rate 18 02/21/24 11:04 Respiratory Effort Normal, Non-Labored 02/21/24 11:04 Blood Pressure 137/73 02/21/24 12:00 Blood Pressure Mean 95 02/21/24 12:00 Blood Pressure Position Sitting 02/21/24 11:04 Pulse Oximetry 96 02/21/24 11:04 Oxygen Delivery Method Room Air 02/21/24 11:04 Oxygen Flow Rate 0 02/21/24 11:04 Lab/Test Results Lab/Test Results: Laboratory Tests Range/Units 02/21/24 11:51 WBC (4.4-10.8) 10^3/uL 8.02 RBC (3.93-5.22) 10^6/uL 3.63 L Hgb (11.2-15.7) g/dL 10.1 L Hct (36.0-46.0) % 31.6 L MCV (80-95) fL 87 MCH (27.0-33.0) pg 27.8 MCHC (32.0-36.0) % 32.0 RDW (11.7-14.6) % 14.1 Plt Count (130-400) 10^3/uL 237 MPV (8.0-11.0) fL 10.1 Immature Gran % % 0.2 Neutrophils % % 87.9 Lymphocytes % % 7.0 Monocytes % % 4.1 Eosinophils % % 0.4 Basophils % % 0.4 Nucleated RBC % (0.0-0.3) % 0.0 Absolute Neutrophils (1.2-6.7) 10^3/uL 7.05 H Absolute Lymphocytes (1.2-3.4) 10^3/uL 0.56 L Absolute Monocytes (0.1-0.8) 10^3/uL 0.33 Absolute Eosinophils (0.0-0.7) 10^3/uL 0.03 Absolute Basophils (0.0-0.2) 10^3/uL 0.03 Sodium (136-145) mmol/L 140 Potassium (3.5-5.1) mmol/L 3.9 Chloride (98-107) mmol/L 104 Carbon Dioxide (21.0-32.0) mmol/L 28.9 Anion Gap (3-11) mmol/L 7.1 BUN (7-18) mg/dL 13 Creatinine (0.55-1.02) mg/dL 0.8 Est GFR (CKD-EPI 2020) (mL/min/1.73m2) 87.50 Glucose (74-106) mg/dL 111 H Calcium (8.5-10.1) mg/dL 9.1 Magnesium (1.8-2.4) mg/dL 2.6 H Total Bilirubin (0.2-1.0) mg/dL 0.3 AST (15-37) U/L 14 L ALT (14-59) U/L 22 Alkaline Phosphatase (46-116) U/L 71 Total Protein (6.4-8.2) g/dL 7.0 Albumin (3.4-5.0) g/dL 3.6 Lipase (16-77) U/L 23 Medical Decision Making 1255 --53-year-old female with history of GERD, status post remote cholecystectomy, here with abdominal pain that started last night and has persisted. Patient was seen here yesterday for nausea and diagnosed with GERD and pancreatitis. She had mildly elevated lipase yesterday. Pain has persisted today and is severe. She does note some pain in her back. Patient is hemodynamically stable. She is diffusely tender in her abdomen worse in the left lower quadrant with no rebound tenderness or rigidity. Plan to obtain CT of the abdomen pelvis to assess for acute intra-abdominal surgical pathology, consider diverticulitis versus pancreatitis versus pancreatic abscess versus other. Initial labs reviewed: No leukocytosis. Chronic unchanged anemia with he moglobin 10.1. Lipase normal at 23. Magnesium is slightly elevated at 2.6. I will give Dilaudid 1 mg IV for pain. Zofran 4 mg IV for nausea. IV fluid initiated. 1425 --CT of the abdomen pelvis was interpreted by radiology:Diverticulitis of the descending and proximal sigmoid colon. No perforation or abscess formation. Results were discussed with the patient. Treatment plan discussed with the patient. Plan to initiate treatment Augmentin for diverticulitis. Plan for outpatient follow-up with PCP. Usual customary discharge instructions were reviewed with the patient. Lab Data Lab results reviewed: Yes I reviewed the patient's lab results. Labs: Laboratory Tests Range/Units 02/21/24 11:51 WBC (4.4-10.8) 10^3/uL 8.02 RBC (3.93-5.22) 10^6/uL 3.63 L Hgb (11.2-15.7) g/dL 10.1 L Hct (36.0-46.0) % 31.6 L MCV (80-95) fL 87 MCH (27.0-33.0) pg 27.8 MCHC (32.0-36.0) % 32.0 RDW (11.7-14.6) % 14.1 Plt Count (130-400) 10^3/uL 237 MPV (8.0-11.0) fL 10.1 Immature Gran % % 0.2 Neutrophils % % 87.9 Lymphocytes % % 7.0 Monocytes % % 4.1 Eosinophils % % 0.4 Basophils % % 0.4 Nucleated RBC % (0.0-0.3) % 0.0 Absolute Neutrophils (1.2-6.7) 10^3/uL 7.05 H Absolute Lymphocytes (1.2-3.4) 10^3/uL 0.56 L Absolute Monocytes (0.1-0.8) 10^3/uL 0.33 Absolute Eosinophils (0.0-0.7) 10^3/uL 0.03 Absolute Basophils (0.0-0.2) 10^3/uL 0.03 Sodium (136-145) mmol/L 140 Potassium (3.5-5.1) mmol/L 3.9 Chloride (98-107) mmol/L 104 Carbon Dioxide (21.0-32.0) mmol/L 28.9 Anion Gap (3-11) mmol/L 7.1 BUN (7-18) mg/dL 13 Creatinine (0.55-1.02) mg/dL 0.8 Est GFR (CKD-EPI 2020) (mL/min/1.73m2) 87.50 Glucose (74-106) mg/dL 111 H Calcium (8.5-10.1) mg/dL 9.1 Magnesium (1.8-2.4) mg/dL 2.6 H Total Bilirubin (0.2-1.0) mg/dL 0.3 AST (15-37) U/L 14 L ALT (14-59) U/L 22 Alkaline Phosphatase (46-116) U/L 71 Total Protein (6.4-8.2) g/dL 7.0 Albumin (3.4-5.0) g/dL 3.6 Lipase (16-77) U/L 23 Quality:SDOH Health Related Social Needs: No Data to Display PFSH All Active Problems (Updated 02/21/24 @ 14:21 by Salty Hinds MD) Acute diverticulitis (Acute) GERD without esophagitis (Acute) Pancreatitis (Chronic) GERD (gastroesophageal reflux disease) (Chronic) Anemia (Chronic) Dysphagia (Acute) Screening for colon cancer (Acute) Medical History CAD (coronary artery disease) Migraine Dysmenorrhea (04/27/14) Endocervical polyp (04/27/14) Complex ovarian cyst (04/27/14) Seasonal/ environmental allergies Hypothyroidism Dysmenorrhea Depression Anxiety Menorrhagia Cervical polyp Essential hypertension Surgical History Cholecystectomy 2014 Family History Mother No problems noted. Father No problems noted. Other Diabetes Heart disease Mental disorder Myocardial infarction Personal history of malignant neoplasm Social History Smoking/Tobacco Use Status: Never Smoking risk assessment performed?: Yes Alcohol Intake: never Drug use: Never Substance use type: does not use Housing: house Do you feel safe at home: Yes Do you feel safe in your relationship?: Yes
[2024-02-21] MEDS: Normal Saline - Diluent 50 ML VIAL IJ (13:09)
[2024-02-21] MEDS: Omnipaque 350 MG/ML 100 ML BTL IJ (13:11)
--- NOTE | 2024-02-21 13:49 | DI.VRAD_ITS ---
PROCEDURE INFORMATION: Exam: CT Abdomen And Pelvis With Contrast Exam date and time: 02/21/2024 1:08 PM Age: 53 years old Clinical indication: Other: Llq pain, ttp; Prior surgery; Surgery date: 6+ months; Surgery type: Cholecystectomy TECHNIQUE: Imaging protocol: Computed tomography of the abdomen and pelvis with contrast. COMPARISON: No relevant prior studies available. FINDINGS: Lungs: Bilateral lower lobe atelectatic changes. Diaphragm: Hiatal hernia. Liver: Normal. No mass. Gallbladder and bile ducts: Post cholecystectomy. No biliary dilatation. Pancreas: Normal. No ductal dilation. Spleen: Normal. No splenomegaly. Adrenal glands: Normal. No mass. Kidneys and ureters: Normal. No hydronephrosis. Stomach and bowel: There is wall thickening with diverticular disease and surrounding fat stranding of the distal descending/proximal sigmoid colon consistent with diverticulitis. Appendix: No evidence of appendicitis. Intraperitoneal space: There is mild amount of free fluid in the pelvis. Vasculature: There are vascular calcifications. Pelvic phleboliths. Lymph nodes: Unremarkable. No enlarged lymph nodes. Urinary bladder: Unremarkable as visualized. Reproductive: Unremarkable as visualized. Bones/joints: Mild curvature of the lumbar spine convex to the left. Bilateral L4-L5 facet joint arthropathy with mild anterolisthesis of L4 over L5. Soft tissues: Small fat containing umbilical hernia. IMPRESSION: Diverticulitis of the descending and proximal sigmoid colon. No perforation or abscess formation. Dictated and Authenticated by: Afshin Banda MD. Ordering:RONAK Pond MD
[2024-02-21] MEDS: Amoxicillin 875/Clav. 125 TAB PO (14:12)
== END 2024-02-21 14:40 | disposition home or self-care (01) ==
PROVIDERS: Emergency Provider Student in an Organized Health Care Education/Training Program; PCP Physician Assistant Medical
DX: K57.30 Diverticulosis of large intestine without perforation or abscess without bleeding (principal); I25.10 Atherosclerotic heart disease of native coronary artery without angina pectoris; Z90.49 Acquired absence of other specified parts of digestive tract
CPT/HCPCS: 36415; 80053; 83690; 96374; 96375; 99285; 74177; 83735; 85025; 99284; J1170; J2405; J3490

== ENCOUNTER 2024-03-04 20:19 | Emergency (ER) | payer BC, SELFPAY ==
[2024-03-04 20:28] VITALS: BP 135/78; PULSE 60; RESP 22; TEMP 36.2; O2SAT 98
--- NOTE | 2024-03-04 20:30 | DI.CT_ITS ---
Exam(s) CT ABDOMEN PELVIS W EXAM: CT ABDOMEN PELVIS W CLINICAL HISTORY: continued abd pain (dx diverticulitis) TECHNIQUE: Imaging Protocol: Axial computed tomography images with coronal and sagittal reformatted images were created and reviewed. CONTRAST MATERIAL: Intravenous: Omnipaque 350 Contrast volume:100 mL Oral: No COMPARISON: CT CT ABDOMEN PELVIS W from 02/21/2024 FINDINGS: ABDOMEN: Lung Bases: Normal where visualized. Liver: Normal density. No measurable mass. Portal, Superior Mesenteric, and Splenic Veins: Unremarkable. Gallbladder and Biliary Tract: Status post cholecystectomy. No change in the mild intra and extrahep atic bile duct prominence. Pancreas: Normal density, no abnormal calcifications or inflammatory process. Spleen: Normal. Adrenals: No masses seen. Kidneys: Normal size, contour and axis. No radiodense stones or obstructive uropathy. No masses seen. Abdominal Aorta: Abdominal portion non-dilated. Atherosclerotic calcification is present. Bowel: There is diverticulosis of the colon. There has been marked improvement in the sigmoid divert iculitis with minimal pericolonic stranding noted. No evidence of bowel obstruction or other bowel w all thickening present. The stomach is incompletely distended limiting evaluation. Appendix is unre markable. Peritoneal Cavity: There is a small amount of fluid seen in the pelvis. No free air. Lymph Nodes: Within normal limits. Bones: Within normal limits for the patient's age. Soft Tissues: Unremarkable. PELVIS: Bladder: Symmetric distention, no gross wall thickening. Reproductive Organs: Unremarkable as visualized. Lymph Nodes: Within normal limits. Bones: Within normal limits for the patient's age. IMPRESSION: 1. Improved bowel wall thickening inflammatory changes seen in the left colon and sigmoid colon since 02/21/2024 suggesting improving acute diverticulitis. No abscess or free air. 2. There is also been interval decrease in size of the small amount of pelvic free fluid present. 3. The stomach is incompletely distended limiting evaluation. This likely accounts for the bowel wal l thickening. Correlate with any concern for gastritis. Follow-up as clinically appropriate. RADIATION DOSE DELIVERED: 827.26mGy.cm Total DLP DATA REPOSITORY: All CT scans at this facility are submitted to the National Radiology Data Registry (NRDR) Dose Index Registry (DIR) with the [employer] ([employer]). RADIATION OPTIMIZATION: All CT scans at this facility use at least one of these dose optimization te chniques: automated exposure control; mA and/or kV adjustment per patient size (includes targeted exa ms where dose is matched to clinical indication); or iterative reconstruction.
[2024-03-04 20:49] LABS: Bilirubin Negative (Negative); Blood Trace-intact (Negative); Clarity Clear (Clear); Glucose Negative (Negative); Ketones Negative (Negative); Leukocyte Esterase Negative (Negative); Nitrite Negative (Negative); Specific Gravity 1.015 (1.005-1.025); Urobilinogen 0.2 mg/dL (Up to 0.2)
--- NOTE | 2024-03-04 21:01 | ED.GENADUL_ITS ---
Discharge Plan Discharge Details Chief Complaint: Abd Prob Primary Care Provider: Maryanne Buckley ED Provider: Sherrie Duarte Home Meds and New Rx's Prescriptions: No Action aspirin [Adult Aspirin Regimen] 81 mg tablet,delayed release (DR/EC) 81 mg PO DAILY zaleplon 10 mg capsule 10 mg PO QHS PRN Rx Instructions: must avoid high-fat meal/food immediately before taking dose sumatriptan succinate 100 mg tablet 100 mg PO ONCE clonazepam 0.5 mg tablet 0.5 mg PO BID rosuvastatin 5 mg tablet 5 mg PO DAILY aripiprazole 5 mg tablet 5 mg PO DAILY lisinopril 20 mg tablet 5 mg PO DAILY scopolamine base [Transderm-Scop] 1 mg over 3 days patch 3 day 1 patch transdermal Q3D PRN escitalopram oxalate 10 mg tablet 10 mg PO DAILY omeprazole [Prilosec] 40 MG capsule,delayed release(DR/EC) 1 cap PO DAILY levothyroxine [Synthroid] 50 MCG tablet 50 mcg PO DAILY multivitamin 1 EACH capsule 1 cap PO HS Zyrtec 10 MG capsule 10 mg PO DAILY escitalopram oxalate [Lexapro] 20 MG tablet 20 mg PO DAILY calcium carb and citrate-vitD3 1 EACH tablet extended release 1 tab PO DAILY pantoprazole [Protonix] [address] for susp in packet 40 mg PO DAILY AM Qty: 30 0RF ondansetron 4 MG tablet,disintegrating 4 mg PO Q6H PRN PRN (Reason: Nausea / Vomiting) Qty: 15 0RF famotidine 40 mg tablet 40 mg PO BID Qty: 60 0RF sucralfate 100 mg/mL suspension 10 ml PO TID Patient Comments: TAKE 10 ML BY MOUTH BEFORE MEAL(S) oxycodone 5 mg capsule 5 mg PO BID PRN (Reason: severe pain (scale score 7-10)) Qty: 6 0RF HPI General Date/Time Provider Initiated Documentation: 03/04/24 20:34 . HPI Narrative: Jaclyn is a 53-year-old female recently diagnosed with diverticulitis who presents to the emergency department today for worsening left lower quadrant pain. She reports that 2 days ago she is finished her course of antibiotics for diverticulitis, has had increasing left lower quadrant pain that is worsened with sitting up or walking since then. She was initially diagnosed with diverticulitis after experiencing lower abdominal pain starting on 524. She was diagnosed via CAT scan, started on antibiotics for a full 10-day course. She denies recent fever/chills, vomiting, bloating, change in bowel or bladder function, black/tarry stools, change in urine output, unusual vaginal discharge. She has had ongoing constipation for the last couple of months, says she has small hard stools. She has had colonoscopies in the past, he is currently arranging to have 1 done. History of polyps in the past on colonoscopy. History of gallbladder removal and ovarian cyst. No digestive disorders other than GERD and hiatal hernia. Related Data Home Medications Medication Instructions Recorded Confirmed cetirizine 10 mg capsule (Zyrtec) 10 mg PO DAILY 01/21/14 03/04/24 levothyroxine 50 mcg tablet 50 mcg PO DAILY 01/21/14 03/04/24 (Synthroid) multivitamin 1 cap PO HS 01/21/14 03/04/24 omeprazole 40 mg capsule,delayed 1 cap PO DAILY 01/21/14 03/04/24 release (Prilosec) calcium carb,cit ER 600 mg-vit D3 1 tab PO DAILY 12/08/14 03/04/24 12.5 mcg (500 unit) tablet,ext.rel escitalopram oxalate 20 mg tablet 20 mg PO DAILY 12/08/14 03/04/24 (Lexapro) ondansetron 4 mg disintegrating 4 mg PO Q6H PRN PRN Nausea / 12/08/14 03/04/24 tablet Vomiting ##15 pantoprazole 40 mg granules 40 mg PO DAILY AM ##30 12/08/14 03/04/24 delayed-release for susp in packet (Protonix) aripiprazole 5 mg tablet 5 mg PO DAILY 01/15/22 03/04/24 aspirin 81 mg tablet,delayed 81 mg PO DAILY 01/15/22 03/04/24 release (Adult Aspirin Regimen) clonazepam 0.5 mg tablet 0.5 mg PO BID 01/15/22 03/04/24 escitalopram oxalate 10 mg tablet 10 mg PO DAILY 01/15/22 03/04/24 lisinopril 20 mg tablet 5 mg PO DAILY 01/15/22 03/04/24 rosuvastatin 5 mg tablet 5 mg PO DAILY 01/15/22 03/04/24 scopolamine base 1 mg over 3 days 1 patch transdermal Q3D PRN 01/15/22 03/04/24 transdermal patch (Transderm-Scop) sumatriptan succinate 100 mg tablet 100 mg PO ONCE 01/15/22 03/04/24 zaleplon 10 mg capsule 10 mg PO QHS PRN 01/15/22 03/04/24 famotidine 40 mg tablet 40 mg PO BID #60 tabs 02/20/24 03/04/24 oxycodone 5 mg capsule 5 mg PO BID PRN severe pain (scale 02/21/24 03/04/24 score 7-10) #6 caps sucralfate 100 mg/mL oral 10 ml PO TID 02/21/24 03/04/24 suspension Previous Rx's Medication Instructions Recorded ondansetron 4 mg disintegrating 4 mg PO Q6H PRN PRN Nausea / 12/08/14 tablet Vomiting ##15 pantoprazole 40 mg granules 40 mg PO DAILY AM ##30 12/08/14 delayed-release for susp in packet (Protonix) famotidine 40 mg tablet 40 mg PO BID #60 tabs 02/20/24 oxycodone 5 mg capsule 5 mg PO BID PRN severe pain (scale 02/21/24 score 7-10) #6 caps Allergies Allergy/AdvReac Type Severity Reaction Status Date / Time NSAIDS (Non-Steroidal Allergy Severe Other (See Verified 02/21/24 12:36 Anti-Inflamma Comment) prednisone Allergy Unknown Other (See Verified 02/21/24 12:36 Comment) adhesive AdvReac Mild Skin Rash Unverified 02/21/24 12:36 enviornmental Allergy Mild irritated Uncoded 02/21/24 12:36 eyes,sneezing General Stated Complaint: Abd Prob BRAXTON: 3 Review of Systems Narrative: see HPI Exam Const General: cooperative, healthy appearing and well developed Nutritional Appearance: average body habitus Resp Effort & Inspection: normal respiratory effort and able to speak in complete sentences Auscultation: clear to auscultation bilaterally Cardio Rate: regular rate Rhythm: regular rhythm GI Inspection: normal to inspection and non-distended Palpation: soft, not firm, no guarding and tender in the LLQ; with no rebound tenderness Auscultation: normal bowel sounds Course Vital Signs Vital signs: Vital Signs Temperature 36.2 C L 03/04/24 20:28 Pulse 60 03/04/24 20:28 Respiratory Rate 22 03/04/24 20:28 Blood Pressure 135/78 03/04/24 20:28 Pulse Oximetry 98 03/04/24 20:28 Temperature 36.2 C L 03/04/24 20:28 Temperature Source Temporal Artery Scan 03/04/24 20:28 Pulse 60 03/04/24 20:28 Respiratory Rate 22 03/04/24 20:28 Respiratory Effort Normal, Non-Labored 03/04/24 20:33 Blood Pressure 135/78 03/04/24 20:28 Blood Pressure Position Sitting 03/04/24 20:28 Pulse Oximetry 98 03/04/24 20:28 Oxygen Delivery Method Room Air 03/04/24 20:28 Oxygen Flow Rate 0 03/04/24 20:28 Pain Level 8 03/04/24 20:52 Lab/Test Results Lab/Test Results: Laboratory Tests Range/Units 03/04/24 20:44 Urine Color (Yellow) Yellow Urine Clarity (Clear) Clear Urine pH (5-8) 6.0 Ur Specific [place] (1.005-1.025) 1.015 Urine Protein (Neg-Trace) mg/dL Negative Urine Ketones (Negative) mg/dL Negative Urine Blood (Negative) Trace-intact H Urine Nitrite (Negative) Negative Urine Bilirubin (Negative) Negative Urine Urobilinogen (Up to 0.2) mg/dL 0.2 Ur Leukocyte Esterase (Negative) Negative Urine Glucose (Negative) mg/dL Negative POC- Test(urine) Negative Medical Decision Making Jaclyn is a 53-year-old female recently diagnosed with diverticulitis who presents to the emergency department today for worsening left lower quadrant pain. She reports that 2 days ago she is finished her course of antibiotics for diverticulitis, has had increasing left lower quadrant pain that is worsened with sitting up or walking since then. She was initially diagnosed with diverticulitis after experiencing lower abdominal pain starting on 524. She was diagnosed via CAT scan, started on antibiotics for a full 10-day course. She denies recent fever/chills, vomiting, bloating, change in bowel or bladder f unction, black/tarry stools, change in urine output, unusual vaginal discharge. She has had ongoing constipation for the last couple of months, says she has small hard stools. She has had colonoscopies in the past, he is currently arranging to have 1 done. History of polyps in the past on colonoscopy. History of gallbladder removal and ovarian cyst. No digestive disorders other than GERD and hiatal hernia. Physical exam remarkable for significant tenderness to left lower quadrant. Abdomen is soft, nondistended, with normoactive bowel sounds. No rigidity or guarding. Easy work of breathing, lung sounds clear bilaterally. Normal heart sounds. DDx includes was not limited to: Complications of diverticulitis such as abscess, bowel obstruction, cystitis, ovarian cyst less likely based on post menopausal patient I independently interpreted the following tests: UA notable for trace intact blood. CBC, CMP reassuring. urine HCG negative. While in the emergency department Jaclyn received IV fluids and toradol for pain control. Zofran given for nausea. CT scan results obtained, there is diffuse laboratory bowel thickening involving descending colon and sigmoid colon with bowel wall edema and adjacent inflammatory change, consistent with acute colitis. As patient has a follow-up scheduled with general surgery on the for EGD/colonoscopy, recommend follow-up scheduled sooner. Will treat with 10 days of ciprofloxacin and Flagyl; patient recently completed course of Augmentin. Reviewed discharge instructions with patient, including red flags indicating need for return to emergency care. She is agreeable with plan of care Imaging Data Radiologic Study: Radiologist's impression: IMPRESSION: 1. Mild thickening of the distal esophagus patient has a history of a hiatal hernia. There is gastric wall thickening.There are fluid-filled loops of small bowel with air-fluid levels. No significant bowel wall thickening or inflammatory changes. No evidence of obstruction. Consider early gastroenteritis. 2. There is diffuse inflammatory bowel wall thickening involving the descending colon and sigmoid colon. There is bowel wall edema. There is adjacent inflammatory change seen within the peritoneal fat and mesentery. This likely represents acute colitis. An underlying mass is not excluded. 3. There is moderate increased colonic fecal content. The colon is mildly distended. These findings suggest a moderate degree of constipation. Clinical correlation recommended. There is focal intraluminal appendiceal calcification, an otherwise normal appendix is identified. There is no evidence of distention or periappendiceal inflammation to suggest appendicitis. 4. There is a small amount of free fluid present in the dependent portion of the pelvis. Quality:SDOH Health Related Social Needs: No Data to Display [facility] All Active Problems (Updated 02/21/24 @ 14:21 by Salty Hinds MD) Acute diverticulitis (Acute) GERD without esophagitis (Acute) Pancreatitis (Chronic) GERD (gastroesophageal reflux disease) (Chronic) Anemia (Chronic) Dysphagia (Acute) Screening for colon cancer (Acute) Medical History CAD (coronary artery disease) Migraine Dysmenorrhea (04/27/14) Endocervical polyp (04/27/14) Complex ovarian cyst (04/27/14) Seasonal/ environmental allergies Hypothyroidism Dysmenorrhea Depression Anxiety Menorrhagia Cervical polyp Essential hypertension Surgical History Cholecystectomy 2013 Family History Mother No problems noted. Father No problems noted. Other Diabetes Heart disease Mental disorder Myocardial infarction Personal history of malignant neoplasm Social History Smoking/Tobacco Use Status: Never Smoking risk assessment performed?: Yes Alcohol Intake: never Drug use: Never Substance use type: does not use Housing: house Do you feel safe at home: Yes Do you feel safe in your relationship?: Yes
[2024-03-04 21:02] LABS: Epithelial Cells Few HPF (Negative); RBC 0-2 HPF (0-2); WBC Negative HPF (0-5)
[2024-03-04 21:03] LABS: Bacteria Rare HPF (Negative); C & S Indicated? No; Casts Negative LPF (Negative); Crystals Negative HPF (Negative); Mucus Negative (Negative)
[2024-03-04] MEDS: Ketorolac 15 MG/ML VIAL IVP (21:03)
[2024-03-04] MEDS: Lactated Ringers 1,000 ML 125 ML IV (21:09)
[2024-03-04 21:13] LABS: HCT 32.6 % (36.0-46.0); HGB 10.4 g/dL (11.2-15.7); MCH 27.5 pg (27.0-33.0); MCHC 31.9 % (32.0-36.0); MCV 86 fL (80-95); Platelet Count 269 10^3/uL (130-400); RBC 3.78 10^6/uL (3.93-5.22); RDW 13.9 % (11.7-14.6); RDW-SD 43.7 fL; WBC 5.05 10^3/uL (4.4-10.8)
[2024-03-04 21:19] LABS: ALT 26 U/L (14-59); AST 18 U/L (15-37); Albumin 3.7 g/dL (3.4-5.0); Alkaline Phosphatase 67 U/L (46-116); Anion Gap 10.9 mmol/L (3-11); BUN 17 mg/dL (7-18); Bilirubin, Total 0.2 mg/dL (0.2-1.0); CO2 24.1 mmol/L (21.0-32.0); Calcium 9.8 mg/dL (8.5-10.1); Chloride 105 mmol/L (98-107); Estimated GFR 66.95 (mL/min/1.73m2); Glucose 93 mg/dL (74-106); Potassium 4.3 mmol/L (3.5-5.1); Sodium 140 mmol/L (136-145); Total Protein 7.4 g/dL (6.4-8.2)
[2024-03-04 21:20] LABS: Absolute Basophil Count 0.05 10^3/uL (0.0-0.2); Absolute Eosinophil Count 0.15 10^3/uL (0.0-0.7); Immature Grans % 0.2 %; Lymphocytes % 27.2 %; Monocytes % 9.5 %; Neutrophils % 59.1 %
[2024-03-04 21:23] LABS: Absolute Lymphocyte Count 1.35 10^3/uL (1.2-3.4); Absolute Neutrophil Count 2.93 10^3/uL (1.2-6.7)
[2024-03-04 21:24] LABS: Absolute Monocyte Count 0.47 10^3/uL (0.1-0.8)
[2024-03-04 21:26] LABS: Abs Immature Grans 0.01 10^3/uL (0.0-0.06)
[2024-03-04] MEDS: Normal Saline - Diluent 50 ML VIAL IJ (22:08)
[2024-03-04] MEDS: Omnipaque 350 MG/ML 100 ML BTL IJ (22:10)
[2024-03-04] MEDS: Normal Saline Flush 10 ML SYR IVP (22:12)
[2024-03-04] MEDS: Ondansetron 4 MG/2 ML VIAL IVP (22:31)
[2024-03-04 23:13] VITALS: BP 143/79; PULSE 57; RESP 14; TEMP 36.8; O2SAT 98
--- NOTE | 2024-03-04 23:26 | DI.VRAD_ITS ---
PROCEDURE INFORMATION: Exam: CT Abdomen And Pelvis With Contrast Exam date and time: 03/04/2024 10:10 PM Age: 53 years old Clinical indication: Other: Continued abd pain (dx diverticulitis) TECHNIQUE: Imaging protocol: Computed tomography of the abdomen and pelvis with contrast. Contrast material: OMNIPAQUE 350; Contrast volume: 100 ml; Contrast route: INTRAVENOUS (IV); COMPARISON: CT ABDOMEN PELVIS W 02/21/2024 1:08 PM FINDINGS: Lungs: The lungs are normal. Pleural spaces: There is no evidence of pneumothorax. There are no pleural effusions present. Heart: The cardiac structures are normal. Esophagus: Mild thickening of the distal esophagus patient has a history of a hiatal hernia. There is gastric wall thickening.There are fluid-filled loops of small bowel with air-fluid levels. No significant bowel wall thickening or inflammatory changes. No evidence of obstruction. Consider early gastroenteritis. Liver: There are no focal liver lesions present. Gallbladder and bile ducts: There has been a cholecystectomy. There is mild intrahepatic biliary dilation. Mild dilation of the common bile duct. Pancreas: The pancreas is normal. Spleen: The spleen is normal. Adrenal glands: The adrenal glands are normal. Kidneys and ureters: The kidneys are normal. Stomach and bowel: There is moderate increased colonic fecal content. The colon is mildly distended. These findings suggest a moderate degree of constipation. Clinical correlation recommended. There is diffuse inflammatory bowel wall thickening involving the descending colon and sigmoid colon. There is bowel wall edema. There is adjacent inflammatory change seen within the peritoneal fat and mesentery. This likely represents acute colitis. An underlying mass is not excluded. Appendix: There is focal intraluminal appendiceal calcification, an otherwise normal appendix is identified. There is no evidence of distention or periappendiceal inflammation to suggest appendicitis. Intraperitoneal space: No evidence of free air. There is a small amount of free fluid present in the dependent portion of the pelvis. Vasculature: The aorta shows mild atherosclerosis but is otherwise unremarkable without evidence of significant atherosclerosis or aneurysmal disease. The peripheral arterial vascular system shows mild atherosclerosis but is unremarkable. The portal venous system visualized is unremarkable. The peripheral venous vascular system visualized is unremarkable. Lymph nodes: Unremarkable. No enlarged lymph nodes. Urinary bladder: Unremarkable as visualized. Reproductive: The uterus is normal. The ovaries are normal. Bones/joints: The skeletal structures and soft tissues show no evidence of fracture or other acute processes. Soft tissues: The extra-abdominal soft tissues are normal. IMPRESSION: 1. Mild thickening of the distal esophagus patient has a history of a hiatal hernia. There is gastric wall thickening.There are fluid-filled loops of small bowel with air-fluid levels. No significant bowel wall thickening or inflammatory changes. No evidence of obstruction. Consider early gastroenteritis. 2. There is diffuse inflammatory bowel wall thickening involving the descending colon and sigmoid colon. There is bowel wall edema. There is adjacent inflammatory change seen within the peritoneal fat and mesentery. This likely represents acute colitis. An underlying mass is not excluded. 3. There is moderate increased colonic fecal content. The colon is mildly distended. These findings suggest a moderate degree of constipation. Clinical correlation recommended. There is focal intraluminal appendiceal calcification, an otherwise normal appendix is identified. There is no evidence of distention or periappendiceal inflammation to suggest appendicitis. 4. There is a small amount of free fluid present in the dependent portion of the pelvis. Dictated and Authenticated by: Jose Arroyo MD. Ordering:BRIELLE Balderas MD
--- NOTE | 2024-03-04 23:45 | RT.EKG_ITS ---
APPROVED REPORT Exam: Resting ECG Reason for Exam: QT check Patient Location: E HR:47 bpm ECG Measurements Heart Rate 47 AXIS OK 174 P 67 QRSd 110 QRS 73 QT 453 T 63 QTc 402 Conclusion Sinus bradycardia...rate< 60 Physician: no stemi, intervals normal
--- NOTE | 2024-03-04 23:46 | NUR.NOTE ---
Referral faxed to [facility] to expedite existing appt. 03/17/24. Dx of Diverticulitis.Nursing Note:
[2024-03-05] VITALS: BP 170/82; PULSE 50; RESP 14; TEMP 36.3; O2SAT 100
[2024-03-05] MEDS: metroNIDAZOLE 500 MG TAB PO
[2024-03-05] MEDS: Ciprofloxacin 500 MG TAB PO
== END 2024-03-05 | disposition home or self-care (01) ==
PROVIDERS: Emergency Provider Nurse Practitioner Family; PCP Physician Assistant Medical
DX: R10.32 Left lower quadrant pain (principal); K52.9 Noninfective gastroenteritis and colitis, unspecified
CPT/HCPCS: 80053; 81025; 93005; 96374; 96375; 99285; 74177; 81003; 81015; 85025; 93010; 99283; J1885; J2405; J3490

== ENCOUNTER 2024-03-17 12:03 | Emergency (ER) | payer BC, SELFPAY ==
[2024-03-17] VITALS (16 sets, daily range): BP systolic 135–177; BP diastolic 57–88; PULSE 54–84; RESP 17–18; TEMP 36.1; O2SAT 85–96
--- NOTE | 2024-03-17 12:27 | ED.GENADUL_ITS ---
Discharge Plan Discharge Details Chief Complaint: Allergic Primary Care Provider: Maryanne Buckley ED Provider: Ace Cazares Home Meds and New Rx's Prescriptions: No Action levothyroxine 88 mcg capsule 88 mcg PO DAILY pantoprazole 40 mg tablet,delayed release (DR/EC) 40 mg PO DAILY sucralfate [Carafate] 1 gram tablet 1 g PO QID zaleplon 10 mg capsule 10 mg PO QHS PRN Rx Instructions: must avoid high-fat meal/food immediately before taking dose sumatriptan succinate 100 mg tablet 100 mg PO ONCE rosuvastatin 5 mg tablet 5 mg PO DAILY aripiprazole 5 mg tablet 5 mg PO DAILY lisinopril 20 mg tablet 5 mg PO DAILY scopolamine base [Transderm-Scop] 1 mg over 3 days patch 3 day 1 patch transdermal Q3D PRN escitalopram oxalate 10 mg tablet 10 mg PO DAILY clonazepam 0.5 mg tablet 0.5 mg PO BID PRN polyethylene glycol 3350 17 gram/dose powder 238 g PO ONCE Qty: 238 0RF Rx Instructions: take per colonoscopy instructions bisacodyl [Dulcolax (bisacodyl)] 5 mg tablet,delayed release (DR/EC) 5 mg PO ONCE Qty: 4 0RF Rx Instructions: take per colonoscopy instructions escitalopram oxalate [Lexapro] 20 MG tablet 20 mg PO DAILY calcium carb and citrate-vitD3 1 EACH tablet extended release 1 tab PO DAILY ondansetron 4 MG tablet,disintegrating 4 mg PO Q6H PRN PRN (Reason: Nausea / Vomiting) Qty: 15 0RF famotidine 40 mg tablet 40 mg PO BID Qty: 60 0RF HPI General Date/Time Provider Initiated Documentation: 03/17/24 12:11 . HPI Narrative: 53 year-old female presents to ED today by EMS with a chief complaint of report of recently finishing a 10-day course of Cipro and Flagyl for diverticulitis reporting right foot and calf muscle pain and bilateral foot numbness and is moving questionably to her knees, with onset today. Quality described as her feet feel tingly and numb, the numbness is migratory, no radiation to weakness, the patient does not want to ambulate as she feels unsteady on her feet due to the numbness, denies any lesions to feet, denies history of neuropathy, denies l umbar back pain, denies urinary retention, denies confusion, headache, fever, bowel incontinence, groin numbness. Severity is described as moderate. Palliating factors include nothing attempted. Provoking factors include nothing specific. Patient not anticoagulated. Related Data Home Medications Medication Instructions Recorded Confirmed calcium carb,cit ER 600 mg-vit D3 1 tab PO DAILY 12/08/14 03/16/24 12.5 mcg (500 unit) tablet,ext.rel escitalopram oxalate 20 mg tablet 20 mg PO DAILY 12/08/14 03/16/24 (Lexapro) ondansetron 4 mg disintegrating 4 mg PO Q6H PRN PRN Nausea / 12/08/14 03/16/24 tablet Vomiting ##15 aripiprazole 5 mg tablet 5 mg PO DAILY 01/15/22 03/16/24 escitalopram oxalate 10 mg tablet 10 mg PO DAILY 01/15/22 03/16/24 lisinopril 20 mg tablet 5 mg PO DAILY 01/15/22 03/16/24 rosuvastatin 5 mg tablet 5 mg PO DAILY 01/15/22 03/16/24 scopolamine base 1 mg over 3 days 1 patch transdermal Q3D PRN 01/15/22 03/16/24 transdermal patch (Transderm-Scop) sumatriptan succinate 100 mg tablet 100 mg PO ONCE 01/15/22 03/16/24 zaleplon 10 mg capsule 10 mg PO QHS PRN 01/15/22 03/16/24 famotidine 40 mg tablet 40 mg PO BID #60 tabs 02/20/24 03/16/24 bisacodyl 5 mg tablet,delayed 5 mg PO ONCE colonscopy bowel prep 03/16/24 release (Dulcolax (bisacodyl)) #4 tabs clonazepam 0.5 mg tablet 0.5 mg PO BID PRN 03/16/24 03/16/24 levothyroxine 88 mcg capsule 88 mcg PO DAILY 03/16/24 03/16/24 pantoprazole 40 mg tablet,delayed 40 mg PO DAILY 03/16/24 03/16/24 release polyethylene glycol 3350 17 238 g PO ONCE colonoscopy prep 03/16/24 gram/dose oral powder #238 grams sucralfate 1 gram tablet (Carafate) 1 g PO QID 03/16/24 03/16/24 Previous Rx's Medication Instructions Recorded ondansetron 4 mg disintegrating 4 mg PO Q6H PRN PRN Nausea / 12/08/14 tablet Vomiting ##15 famotidine 40 mg tablet 40 mg PO BID #60 tabs 02/20/24 bisacodyl 5 mg tablet,delayed 5 mg PO ONCE colonscopy bowel prep 03/16/24 release (Dulcolax (bisacodyl)) #4 tabs polyethylene glycol 3350 17 238 g PO ONCE colonoscopy prep 03/16/24 gram/dose oral powder #238 grams Allergies Allergy/AdvReac Type Severity Reaction Status Date / Time NSAIDS (Non-Steroidal Allergy Severe Other (See Verified 03/17/24 13:11 Anti-Inflamma Comment) prednisone Allergy Unknown Other (See Verified 03/17/24 13:11 Comment) adhesive AdvReac Mild Skin Rash Unverified 03/17/24 13:11 enviornmental Allergy Mild irritated Uncoded 03/17/24 13:11 eyes,sneezing General Stated Complaint: Allergic BRAXTON: 3 Review of Systems All systems reviewed & are unremarkable except as noted in HPI and below Exam Narrative Exam Narrative: GENERAL APPEARANCE: Well-nourished, non-toxic, awake and alert, atraumatic, no acute distress. SKIN: Warm, pink, dry, intact, without rashes/lesions/ulcerations. HEAD: Normocephalic, atraumatic, normal hair distribution for gender/age. EYES: Pupils PERRLA, EOMs intact without nystagmus, normal conjunctiva, no exudates on lids/lashes. ENT: Nares patent, no circumoral cyanosis, no facial swelling NECK: Supple, trachea midline, painless cervical ROM. LUNGS/CHEST: Lungs CTA bilaterally, non-labored respirations, normal A/P diameter, symmetrical expansion, no chest wall deformity HEART (CV/PV): Regular rate and rhythm without murmur, no peripheral edema, no JVD. ABDOMEN: Soft, non-distended, no guarding. MSK: Normal ROM, no swelling/deformity to bilateral UEs or LEs, moving all extremities without weakness, no cyanosis, spine midline without tenderness, normal curvature. NEURO: Mental Status AAOx4 - alert to person, place, time, events No facial droop, no forehead involvement. Motor: No focal weakness - strength 5/5 in bilateral UEs and LEs, proximal and distal, symmetric. Sensory: sensation intact to light touch globally. Gait normal: patient ambulated without ataxia into ED room. PSYCH: euthymic, cooperative, pleasant, appropriate speech Course Vital Signs Vital signs: Vital Signs Pulse 84 03/17/24 12:09 Respiratory Rate 17 03/17/24 12:09 Blood Pressure 143/78 H 03/17/24 12:09 Pulse Oximetry 85 L 03/17/24 12:09 Pulse 84 03/17/24 12:09 Respiratory Rate 17 03/17/24 12:09 Respiratory Effort Normal 03/17/24 12:11 Blood Pressure 143/78 H 03/17/24 12:09 Blood Pressure Position Sitting 03/17/24 12:09 Pulse Oximetry 85 L 03/17/24 12:09 Oxygen Delivery Method Room Air 03/17/24 12:09 Oxygen Flow Rate 0 03/17/24 12:09 Pain Level 1 03/17/24 12:09 Medical Decision Making This dictation utilizes [id number] dictation software and may contain unedited grammatical errors. 53 year-old female presents to ED today by EMS with a chief complaint of report of recently finishing a 10-day course of Cipro and Flagyl for diverticulitis reporting right foot and calf muscle pain and bilateral foot numbness and is moving questionably to her knees, with onset today. Quality described as her feet feel tingly and numb, the numbness is migratory, no radiation to weakness, the patient does not want to ambulate as she feels unsteady on her feet due to the numbness, denies any lesions to feet, denies history of neuropathy, denies lumbar back pain, denies urinary retention, denies confusion, headache, fever, bowel incontinence, groin numbness. Severity is described as moderate. Palliating factors include nothing attempted. Provoking factors include nothing specific. Patients' medical history: migraine. Family and social history: noncontributory. Pertinent exam findings / vital signs include dullness to sensation in bilateral feet with sharp-dull testing, no strength deficits, DTRs patella 2/4 bilaterally, strength 5/5 in bilateral lower extremities, benign cardiopulmonary exam, benign abdomen, lumbar paraspinal tenderness without crepitus or step- offs. Differential / pathologies of concern include sciatica, disc herniation, peripheral neuropathy, Guillain-Krause? syndrome, Lyme disease, psychosomatic neuropathy, multiple sclerosis, vitamin deficiency, electrolyte abnormality, hypothyroidism. Diagnostic studies of: -CBC, CMP, CRP, magnesium, tick and Lyme panel, TSH, MRI brain and spine with and without. -No leukocytosis, mild anemia on CBC -Benign CMP -Magnesium within normal limits -CRP negative -TSH elevated, T4 wnl -Tick panel pending -MRIs pending Interventions of: -Valium 5mg PO, 25mg IV Benadryl for anxiolysis for MRI. ED Course/Assessment/Plan: 53-year-old female presents with migratory possibly a ascending neuropathy with objective sensory deficits to sharp-dull sensation in bilateral feet and distal calves, with recent GI illness treated for diverticulitis, there is a possibility the patient had Campylobacter infection. She denies any known tick bites, DTRs are intact in the bilateral lower extremities. Patient is pending MRI with and without contrast of the brain and entire spine at time of signout. Her laboratory workup is otherwise benign at this time, with any disc pathology as explanation for her symptoms with MRI she can likely be discharged with empiric diagnosis of lumbar radiculopathy but may need lumbar puncture if inconclusive workup. Patient signed out to Etelvina Dan NP at shift-change. -Radiology department Dr. Neal would like us to cut down on studies as they take significant amount of time. I did inform them that definitive rule out for this pathology is recommended on all guidelines for MRI brain and spine in its entirety with and without contrast. I did compromise that the lumbar MRI as well as a brain MRI be performed first to possibly get reads on the studies for any concrete pathology in the streets that could explain the patient's bilateral feet neuropathy. She may be needing admission after this for possible LP and possible cervical and thoracic spine MRIs tomorrow if the studies are inconclusive. Discussed case with EM Attending Dr. Hernandez he agrees with this plan. The cervical and thoracic MRIs will still need to be performed in the acute period if inconclusive studies regardless. Findings not consistent with paralysis. Disposition of Numbness of Bilateral Feet. Patient verbalized understanding of the plan and return to ED criteria and engaged in shared decision making. Medical Records Medical records reviewed: Yes I reviewed the patient's medical records. Lab Data Lab results reviewed: Yes I reviewed the patient's lab results. Labs: Laboratory Tests Range/Units 03/17/24 12:28 WBC (4.4-10.8) 10^3/uL 3.90 L RBC (3.93-5.22) 10^6/uL 3.98 Hgb (11.2-15.7) g/dL 11.1 L Hct (36.0-46.0) % 34.3 L MCV (80-95) fL 86 MCH (27.0-33.0) pg 27.9 MCHC (32.0-36.0) % 32.4 RDW (11.7-14.6) % 14.3 Plt Count (130-400) 10^3/uL 269 MPV (8.0-11.0) fL 10.4 Immature Gran % % 0.0 Neutrophils % % 62.9 Lymphocytes % % 25.4 Monocytes % % 7.4 Eosinophils % % 2.8 Basophils % % 1.5 Nucleated RBC % (0.0-0.3) % 0.0 Absolute Neutrophils (1.2-6.7) 10^3/uL 2.45 Absolute Lymphocytes (1.2-3.4) 10^3/uL 0.99 L Absolute Monocytes (0.1-0.8) 10^3/uL 0.29 Absolute Eosinophils (0.0-0.7) 10^3/uL 0.11 Absolute Basophils (0.0-0.2) 10^3/uL 0.06 Sodium (136-145) mmol/L 142 Potassium (3.5-5.1) mmol/L 3.8 Chloride (98-107) mmol/L 106 Carbon Dioxide (21.0-32.0) mmol/L 27.0 Anion Gap (3-11) mmol/L 9.0 BUN (7-18) mg/dL 9 Creatinine (0.55-1.02) mg/dL 0.8 Est GFR (CKD-EPI 2020) (mL/min/1.73m2) 87.50 Glucose (74-106) mg/dL 113 H Calcium (8.5-10.1) mg/dL 9.7 Magnesium (1.8-2.4) mg/dL 2.1 Total Bilirubin (0.2-1.0) mg/dL 0.4 AST (15-37) U/L 48 H ALT (14-59) U/L 58 Alkaline Phosphatase (46-116) U/L 66 C-Reactive Protein (<or=0.5) mg/dL < 0.50 Total Protein (6.4-8.2) g/dL 7.5 Albumin (3.4-5.0) g/dL 4.0 TSH (0.36-3.74) uIU/mL 6.27 H Free T4 (0.76-1.46) ng/dL 1.08 Quality:SDOH Health Related Social Needs: No Data to Display PFSH All Active Problems (Updated 03/04/24 @ 23:38 by Sherrie Vick) Colitis (Acute) Acute diverticulitis (Acute) GERD without esophagitis (Acute) Pancreatitis (Chronic) GERD (gastroesophageal reflux disease) (Chronic) Anemia (Chronic) Dysphagia (Acute) Screening for colon cancer (Acute) Medical History CAD (coronary artery disease) Migraine Dysmenorrhea (04/27/14) Endocervical polyp (04/27/14) Complex ovarian cyst (04/27/14) Seasonal/ environmental allergies Hypothyroidism Dysmenorrhea Depression Anxiety Menorrhagia Cervical polyp Essential hypertension Surgical History Cholecystectomy 2014 Family History Mother No problems noted. Father No problems noted. Other Diabetes Heart disease Mental disorder Myocardial infarction Personal history of malignant neoplasm Social History Smoking/Tobacco Use Status: Never Smoking risk assessment performed?: Yes Alcohol Intake: never Drug use: Never Substance use type: does not use Housing: house Do you feel safe at home: Yes Do you feel safe in your relationship?: Yes Sign Out Sign Out Data: Sign Out Comment: Patient high anxiety- reporting peripheral neuropathy bilateral feet, spreading upward w/ recent GI illness. DTRs wnl, dulled sensation to sharp-dull in feet, has lumbar paraspinal tenderness. -concern GBS /MS/demyelinating neuropathy vs lumbar disc pathology vs thyroid/vitamin/psychosomatic neuropathy vs Lyme/tick pathology MRI's pending at sign-out, d/c if definitive disc findings, consider LP Last updated by Ace Cazares PA at 03/17/24 13:49
--- NOTE | 2024-03-17 12:45 | DI.MRI_ITS ---
Exam(s) MR BRAIN WO/W EXAM: MR BRAIN WO/W CLINICAL HISTORY: neuropathy post-GI illness TECHNIQUE: Multiplanar multisequence MRI of the brain was performed. CONTRAST MATERIAL: IV Contrast: 14 mL of Dotarem contrast administered. COMPARISON: No exams were available for comparison FINDINGS: The examination is limited due to patient motion artifact. VENTRICLES AND EXTRA AXIAL SPACES: Normal in size and morphology for the patient's age. HEMORRHAGE: None. CEREBRAL PARENCHYMA: No focus of restricted diffusion to suggest acute infarct. No space-occupying le harvey identified. There are several areas of hyperintense signal seen in the white matter on the FLAIR and T2 weighted images. These likely reflect early small vessel ischemic disease. MIDLINE SHIFT: None. BRAINSTEM/CEREBELLUM: Normal. CALVARIUM: Normal. ENHANCEMENT: No suspicious enhancement identified. VISUALIZED PARANASAL SINUSES/MASTOIDS: The right maxillary sinus is near completely opacified. There is a small mucous retention cyst or polyp in the left maxillary sinus. [place]: Normal flow void. PITUITARY GLAND: Note is made of a empty sella. 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 IMPRESSION: 1. No evidence of an intracranial mass, enhancing lesion or acute infarct. 2. Scattered hyperintense foci in the white matter which do not enhance which may represent early sma ll vessel ischemic disease or other demyelinating process. 3. Right maxillary sinusitis. DATA REPOSITORY:
[2024-03-17 12:49] LABS: Absolute Basophil Count 0.06 10^3/uL (0.0-0.2); Absolute Eosinophil Count 0.11 10^3/uL (0.0-0.7); Absolute Lymphocyte Count 0.99 10^3/uL (1.2-3.4); Absolute Monocyte Count 0.29 10^3/uL (0.1-0.8); Absolute Neutrophil Count 2.45 10^3/uL (1.2-6.7); Basophils % 1.5 %; Eosinophils % 2.8 %; HCT 34.3 % (36.0-46.0); HGB 11.1 g/dL (11.2-15.7); Lymphocytes % 25.4 %; MCH 27.9 pg (27.0-33.0); MCHC 32.4 % (32.0-36.0); MCV 86 fL (80-95); MPV 10.4 fL (8.0-11.0); Monocytes % 7.4 %; Neutrophils % 62.9 %; Platelet Count 269 10^3/uL (130-400); RBC 3.98 10^6/uL (3.93-5.22); RDW 14.3 % (11.7-14.6); RDW-SD 44.5 fL
[2024-03-17 13:11] LABS: ALT 58 U/L (14-59); AST 48 U/L (15-37); Alkaline Phosphatase 66 U/L (46-116); BUN 9 mg/dL (7-18); Bilirubin, Total 0.4 mg/dL (0.2-1.0); CREATININE 0.8 mg/dL (0.55-1.02); Calcium 9.7 mg/dL (8.5-10.1); Chloride 106 mmol/L (98-107); Glucose 113 mg/dL (74-106); Magnesium 2.1 mg/dL (1.8-2.4); Potassium 3.8 mmol/L (3.5-5.1); Sodium 142 mmol/L (136-145); Total Protein 7.5 g/dL (6.4-8.2)
[2024-03-17 13:17] LABS: C-Reactive Protein < 0.50 mg/dL (<or=0.5)
[2024-03-17 13:23] LABS: TSH (W/Ref FT4) 6.27 uIU/mL (0.36-3.74)
[2024-03-17 13:41] LABS: FREE T4 1.08 ng/dL (0.76-1.46)
--- NOTE | 2024-03-17 14:15 | RT.EKG_ITS ---
APPROVED REPORT Exam: Resting ECG Reason for Exam: anxiety Patient Location: E HR:64 bpm ECG Measurements Heart Rate 64 AXIS MS 164 P 63 QRSd 99 QRS 72 QT 407 T 57 QTc 422 Conclusion Sinus rhythm...normal P axis, V-rate 60- 99 Physician: No stemi, stable
[2024-03-17] MEDS: diazePAM 5 MG TAB PO (14:54)
[2024-03-17] MEDS: diphenhydrAMINE 50 MG/ML VIAL 25 MG IVP (14:54)
--- NOTE | 2024-03-17 16:08 | ED.PROG_ITS ---
Date of service: 03/17/24 Time of Service: 16:08 Medical Decision Making Care assumed from provider (OMAR Martinez) Please see their initial HPI, PE, and documentation. Discussed patient details and case and pending MRI results, reevaluation and treatment. On upon signout patient is an MRI of the brain and thoracic and lumbar spine. In short she is a 53-year-old female who just finished a 10-day course of Cipro and Flagyl for diverticulitis on Friday. Presents with acute onset of numbness tingling in her feet which ascends up to her bilateral knees. My colleague does report that she has intact pinprick sensation in bilateral lower extremities and she is able to move both her lower extremities. 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 versus slipped disc versus thyroid. Of note her TSH is slightly elevated at 6.27 her free T4 is 1.08 she does take 88 mics levothyroxine. Past medical history includes CAD migraine dysmenorrhea complex ovarian cyst, hypothyroidism depression anxiety and hypertension. 1815: Patient returns from MRI she is complaining of a slight headache, she is alert and oriented x 4. Family is at bedside. Will give Tylenol, will consider LP, versus outpatient neurology referral, vs treatment for possible fluoroquinolone associated neuropathy. 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 Neurofibroma/schwannoma and less likely meningioma among differential. 1936: [facility] [place] to speak with Neuro regarding MRI results, 2019: Spoke with the [facility] [place] center they will put a page out to neur osurgery and are requesting a teleneuro consult, teleneuro order placed. On patient reevaluation she reports feeling better she states that the numbness and tingling sensations is only in her feet, she has been up to the bathroom multiple times. She is moving all 4 extremities without difficulty. She is requesting food and only complaint is being hungry. She denies any significant back or neck pain. 2024: Dr. Elliott Neuro Surgery discussed patient case in details she does recommend referral to the neurosurgery clinic with follow-up in the next 1 to 3 months she does recommend careful watching and reevaluation or repeat imaging in the future is requesting a fax referral. She also does recommend neurology consult which is pending at this time. 2245: Transfer center contacted regarding Tele-neuro consult by community artist. 2305: Spoke with Dr. Wade with Tele-neuro her impression is Bilateral sciatic neuropathy, she recommends eval for B12 deficiency, PT and OT eval, and ENG of bilateral lower extremities as an outpatient. \ This text was generated using [employer] system, please disregard any oddities of phrase or misspellings. Medical Records Medical records reviewed: Yes I reviewed the patient's medical records. Imaging Data Radiologic Study: Imaging: MRI Radiologist's impression: MRI Brain [facility]: COMPARISON: MR CERVICAL SPINE WO/W 03/17/2024 3:14 PM FINDINGS: Brain: No dif fusion restriction, edema or mass. No abnormal intracerebral enhancement. Bilateral punctate foci T2/stir subcortical hyperintensity. Cerebral ventricles: No significant hydrocephalus. Pituitary gland and sella: Empty sella. Prominent cisterna magna. Bones: Unremarkable. Paranasal sinuses: Chronic maxillary sinusitis, right greater than left. Mastoid air cells: No mastoid effusion. Orbital cavities: Unremarkable. Soft tissues: Unremarkable. IMPRESSION: 1. No acute findings. 2. Punctate foci of nonspecific white matter disease which may be due to underlying microangiopathy. Dictated and Auth enticated by: Alon Adame MD Lab Data Lab results reviewed: Yes I reviewed the patient's lab results. Labs: Laboratory Tests Range/Units 03/17/24 12:28 WBC (4.4-10.8) 10^3/uL 3.90 L RBC (3.93-5.22) 10^6/uL 3.98 Hgb (11.2-15.7) g/dL 11.1 L Hct (36.0-46.0) % 34.3 L MCV (80-95) fL 86 MCH (27.0-33.0) pg 27.9 MCHC (32.0-36.0) % 32.4 RDW (11.7-14.6) % 14.3 Plt Count (130-400) 10^3/uL 269 MPV (8.0-11.0) fL 10.4 Immature Gran % % 0.0 Neutrophils % % 62.9 Lymphocytes % % 25.4 Monocytes % % 7.4 Eosinophils % % 2.8 Basophils % % 1.5 Nucleated RBC % (0.0-0.3) % 0.0 Absolute Neutrophils (1.2-6.7) 10^3/uL 2.45 Absolute Lymphocytes (1.2-3.4) 10^3/uL 0.99 L Absolute Monocytes (0.1-0.8) 10^3/uL 0.29 Absolute Eosinophils (0.0-0.7) 10^3/uL 0.11 Absolute Basophils (0.0-0.2) 10^3/uL 0.06 Sodium (136-145) mmol/L 142 Potassium (3.5-5.1) mmol/L 3.8 Chloride (98-107) mmol/L 106 Carbon Dioxide (21.0-32.0) mmol/L 27.0 Anion Gap (3-11) mmol/L 9.0 BUN (7-18) mg/dL 9 Creatinine (0.55-1.02) mg/dL 0.8 Est GFR (CKD-EPI 2020) (mL/min/1.73m2) 87.50 Glucose (74-106) mg/dL 113 H Calcium (8.5-10.1) mg/dL 9.7 Magnesium (1.8-2.4) mg/dL 2.1 Total Bilirubin (0.2-1.0) mg/dL 0.4 AST (15-37) U/L 48 H ALT (14-59) U/L 58 Alkaline Phosphatase (46-116) U/L 66 C-Reactive Protein (<or=0.5) mg/dL < 0.50 Total Protein (6.4-8.2) g/dL 7.5 Albumin (3.4-5.0) g/dL 4.0 TSH (0.36-3.74) uIU/mL 6.27 H Free T4 (0.76-1.46) ng/dL 1.08 Quality:SDOH Health Related Social Needs: No Data to Display Exam Eyes EOM: No nystagmus Neuro General: patient alert, patient awake and patient oriented x3 Cranial Nerves: tongue midline, able to elevate shoulders bilaterally and no nystagmus Cognition: normal cognition Speech: speech normal Motor: no pronator drift, no fasciculations and strength abnormal bilateral lower extremity other (No leg drop, she does complain of pain with leg raise bilaterally) 4 / 5 Sensory Exam: no sensory deficits noted Plantar Reflexes: Downgoing: bilateral and Upgoing: bilateral Sign Out Sign Out Data: Sign Out Comment: Patient high anxiety- reporting peripheral neuropathy bilateral feet, spreading upward w/ recent GI illness. DTRs wnl, dulled sensation to sharp-dull in feet, has lumbar paraspinal tenderness. -concern GBS/MS/demyelinating neuropathy vs lumbar disc pathology vs thyroid/vitamin/psychosomatic neuropathy vs Lyme/tick pathology MRI's pending at sign-out, d/c if definitive disc findings, consider LP Last updated by Ace Cazares PA at 03/17/24 13:49 Discharge Plan Disposition Patient Disposition: Home Condition: Stable Discharge Details Clinical Impression: Sciatic neuropathy, DDD (degenerative disc disease), lumbosacral Primary Care Provider: Maryanne Buckley ED Provider: Etelvina Dan Home Meds and New Rx's Prescriptions: Continued levothyroxine 88 mcg capsule 88 mcg PO DAILY pantoprazole 40 mg tablet,delayed release (DR/EC) 40 mg PO DAILY sucralfate [Carafate] 1 gram tablet 1 g PO QID zaleplon 10 mg capsule 10 mg PO QHS PRN Rx Instructions: must avoid high-fat meal/food immediately before taking dose sumatriptan succinate 100 mg tablet 100 mg PO ONCE rosuvastatin 5 mg tablet 5 mg PO DAILY aripiprazole 5 mg tablet 5 mg PO DAILY lisinopril 20 mg tablet 5 mg PO DAILY scopolamine base [Transderm-Scop] 1 mg over 3 days patch 3 day 1 patch transdermal Q3D PRN escitalopram oxalate 10 mg tablet 10 mg PO DAILY clonazepam 0.5 mg tablet 0.5 mg PO BID PRN escitalopram oxalate [Lexapro] 20 MG tablet 20 mg PO DAILY calcium carb and citrate-vitD3 1 EACH tablet extended release 1 tab PO DAILY ondansetron 4 MG tablet,disintegrating 4 mg PO Q6H PRN PRN (Reason: Nausea / Vomiting) Qty: 15 0RF famotidine 40 mg tablet 40 mg PO BID Qty: 60 0RF Discharge Instructions Instructions: Sciatica ED, Degenerative Disc Disease ED Additional Instructions: Please follow-up with neurosurgery at [facility] within 1 to 3 months regarding your MRI results and re- imaging. The neurologist at [facility] recommended evaluation for vitamin B12 deficiency, follow-up with your primary care provider regarding an EMG or nerve study your lower extremities, Follow up with primary care provider in 3-5 days. Please also discuss your TSH results with your PCP. Return to ED sooner if any worsening numbness tingling, problems with bowel or bladder loss of control of bowel or bladder, feeling as if you need to pee but cannot, or concerns. Please take Tylenol or Ibuprofen with food every 4-6 hours as needed for pain and swelling. Thank you for your patience and allowing us to care for you today. Stand Alone Forms: Physical Therapy Referral Referrals: [facility] [Outside] - Return if symptoms worsen (1-3 months ) Maryanne Buckley PA [Primary Care Provider] - 3 days Medina Clayton MD [ [facility] STAFF PHYSICIAN] - Return if symptoms worsen
[2024-03-17] MEDS: Gadoterate meglumine 20 ML SYRINGE 14 ML IVP (16:48)
--- NOTE | 2024-03-17 18:00 | DI.MRI_ITS ---
Exam(s) MR CERVICAL SPINE WO/W EXAM: MR CERVICAL SPINE WO/W CLINICAL HISTORY: neuropathy, post-GI illness TECHNIQUE: Multiplanar multisequence MRI of the cervical spine was performed. CONTRAST MATERIAL: IV Contrast: 14 ML of Dotarem contrast administered. COMPARISON: CR,RF RF BARIUM SWALLOW from 12/17/2021 FINDINGS: BONES: Vertebral body heights are maintained. Intervertebral disc spaces are normal. Alignment is nor mal. Bone marrow signal intensity is within normal limits. CERVICAL CORD: Craniovertebral junction is unremarkable. The cervical cord is normal size and signal intensity. No lesion is present. SOFT TISSUES: There is a 1.0 x 0.8 cm posterior intradural extramedullary mass at the level of C1. T he mass shows homogeneous enhancement following contrast administration. ENHANCEMENT: No other enhancing lesions are seen. Please see the above section under soft tissues. C2-3: No disc herniation or bulge is identified. No significant central spinal canal or neural forami nal stenosis. C3-4: No disc herniation or bulge is identified. No significant central spinal canal or neural forami nal stenosis C4-5: No disc herniation or bulge is identified. No significant central spinal canal or neural forami nal stenosis C5-6: Prominence of the osteophyte disc complex is present. There is resultant veeb-oh-zyvjknpe bila teral neural foraminal stenosis. No significant central spinal canal stenosis. C6-7: No disc herniation or bulge is identified. No significant central spinal canal or neural forami nal stenosis C7-T1: No disc herniation or bulge is identified. No significant central spinal canal or neural valerie inal stenosis IMPRESSION: 1. Degenerative changes most prominent at C5-C6 resulting in aboj-vl-bnpoyuxj bilateral neural forami nal stenosis. 2. 1.0 x 0.8 cm posterior intradural extramedullary mass at the level of C1. Differential considerat ions include nerve sheath tumor (neural fibroma/schwannoma), meningioma or metastasis. DATA REPOSITORY:
--- NOTE | 2024-03-17 18:00 | DI.MRI_ITS ---
Exam(s) MR THORACIC SPINE WO/W EXAM: MR THORACIC SPINE WO/W CLINICAL HISTORY: Neuropathy, post GI illness. TECHNIQUE: Multiplanar multisequence MRI of the Thoracic spine was performed. CONTRAST MATERIAL: IV Contrast: 14 mL of Dotarem contrast administered. COMPARISON: No exams were available for comparison FINDINGS: Bones: The vertebral body heights are well maintained. Alignment is satisfactory. Mild degenerative e ndplate signal changes are seen at T9-T10. Cord: The thoracic cord is normal size and signal intensity. No intrinsic cord lesion is present. Discs: There is a mild left-sided disc herniation at T9-T10 without nerve root compression or central spinal canal stenosis. Soft tissues: There is hypertrophy of the ligamentum flavum on the right side at T11-T12. There is resultant mild narrowing of the right neural foramen. No compression on the spinal cord is seen. There is no evidence of suspicious enhancement. IMPRESSION: 1. No significant central spinal canal or neural foraminal stenosis. 2. Mild degenerative changes seen in the thoracic spine. 3. Normal signal in the spinal cord. 4. No evidence of suspicious enhancement. DATA REPOSITORY:
--- NOTE | 2024-03-17 18:00 | DI.MRI_ITS ---
Exam(s) MR LUMBAR SPINE WO/W EXAM: MR LUMBAR SPINE WO/W CLINICAL HISTORY: neuropathy, post-GI illness. TECHNIQUE: Multiplanar multisequence MRI of the Lumbar Spine was performed. CONTRAST MATERIAL: IV Contrast: 14 mL of Dotarem contrast administered. COMPARISON: CT CT ABDOMEN PELVIS W from 03/04/2024 FINDINGS: Bones: The last intervertebral disc space is designated the L5/S1 level for the numbering purpose of this examination. The vertebral body heights are well maintained. Alignment is satisfactory. There a re degenerative endplate signal changes seen at L4-5 and L5-S1. Cord: The conus tip ends at the T12 level. It is of normal size and signal intensity. T12-L1: No disc herniations or bulges are present. No central spinal canal or neural foraminal stenos is. L1-2: No disc herniations or bulges are present. No central spinal canal or neural foraminal stenosis . L2-3: There is a mild diffuse disc bulge. No central spinal canal or neural foraminal stenosis. L3-4: There is a mild diffuse disc bulge. No significant central spinal canal stenosis is seen. The re may be mild left neural foraminal narrowing. No significant right neural foraminal stenosis. L4-5: There is a small diffuse disc bulge. There are degenerative changes of the facets. No signifi cant central spinal canal stenosis is seen.There is mild narrowing of the left neural foramen. No si gnificant right neural foraminal stenosis is present. L5-S1: There is a small annular tear at this level. There is a small diffuse disc bulge. No central spinal canal or neural foraminal stenosis. Soft tissues: The visualized SI joints and sacrum are well maintained. The paraspinal soft tissues ar e unremarkable. There is no evidence of suspicious enhancement. There is no thickening or enhancement of the nerve r oots. No evidence of an intradural mass is seen. IMPRESSION: 1. No enhancement and thickening of the nerve roots. 2. Multilevel degenerative changes in the lumbar spine as described above. DATA REPOSITORY:
--- NOTE | 2024-03-17 18:22 | DI.VRAD_ITS ---
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 Neuropathy, post-gi illness TECHNIQUE: Imaging protocol: Magnetic resonance imaging of the head without and with contrast. Total images: 1728 Contrast material: DOTAREM; Contrast volume: 14 ml; Contrast route: INTRAVENOUS (IV); COMPARISON: MR CERVICAL SPINE WO/W 03/17/2024 3:14 PM FINDINGS: Brain: No diffusion restriction, edema or mass. No abnormal intracerebral enhancement. Bilateral punctate foci T2/stir subcortical hyperintensity. Cerebral ventricles: No significant hydrocephalus. Pituitary gland and sella: Empty sella. Prominent cisterna magna. Bones: Unremarkable. Paranasal sinuses: Chronic maxillary sinusitis, right greater than left. Mastoid air cells: No mastoid effusion. Orbital cavities: Unremarkable. Soft tissues: Unremarkable. IMPRESSION: 1. No acute findings. 2. Punctate foci of nonspecific white matter disease which may be due to underlying microangiopathy. Dictated and Authenticated by: Alon Adame MD. Ordering:JANIYA Bello MD
[2024-03-17] MEDS: Acetaminophen 325 MG TAB 650 MG PO (18:25)
--- NOTE | 2024-03-17 18:43 | DI.VRAD_ITS ---
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 Neuropathy, post-gi illness TECHNIQUE: Imaging protocol: Magnetic resonance imaging of the cervical spine without and with contrast. Total images: 546 Contrast material: DOTAREM; Contrast volume: 14 ml; Contrast route: INTRAVENOUS (IV); COMPARISON: MR BRAIN WO/W 03/17/2024 3:14 PM FINDINGS: Bones/joints: Endplate change C5-C6. Otherwise no significant abnormal vertebral body signal or enhancement. No abnormal disc enhancement. Moderate and significant right spondylotic foraminal narrowing at C5-C6 and C6-C7 respectively. Slight anterolisthesis C4 on C5 with secondary disc bulging narrowing the anterior thecal sac without cord impingement. It is characterized by T1 and T2 intermediate signal intensity and homogeneously enhancing along its anterior aspect. Spinal cord: No abnormal signal or enhancement within the cervical cord. Spinal epidural space: 1 x 0.5 cm well-circumscribed nodule in the left posterior aspect of the thecal sac at the level of the dens. Paranasal sinuses: Maxillary sinusitis. Vasculature: Unremarkable. Soft tissues: Unremarkable IMPRESSION: Extramedullary/intradural lesion just below the cervicomedullary junction. Neurofibroma/schwannoma and less likely meningioma among differential considerations. Dictated and Authenticated by: Alon Adame MD. Ordering:JANIYA Bello MD
--- NOTE | 2024-03-17 19:01 | DI.VRAD_ITS ---
PROCEDURE INFORMATION: Exam: MR Thoracic Spine Without and With Contrast Exam date and time: 03/17/2024 3:14 PM Age: 53 years old Clinical indication: Numbness; Patient HX: Neuropathy, post-gi illness. ? 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 Total images: 816 Contrast material: DOTAREM; Contrast volume: 14 ml; Contrast route: INTRAVENOUS (IV); COMPARISON: MR CERVICAL SPINE WO/W 03/17/2024 3:14 PM FINDINGS: Bones/joints: No significant abnormal signal or enhancement involving thoracic vertebral bodies and intervening disc spaces. Spinal cord: No abnormal signal or enhancement within the thoracic cord including the conus and visualized proximal cauda equina. Discs/Spinal canal/Neural foramina: Left subarticular disc protrusion T9-10 mildly narrows the thecal sac. Right-sided ligamentum flavum hypertrophy T11-12 mildly narrows the right side of the thecal sac. Soft tissues: No paraspinal mass. IMPRESSION: No significant finding. Dictated and Authenticated by: Alon Adame MD. Ordering:JANIYA Bello MD
--- NOTE | 2024-03-17 19:13 | DI.VRAD_ITS ---
PROCEDURE INFORMATION: Exam: MR Lumbar Spine Without and With Contrast. Exam date and time: 03/17/2024 3:14 PM Age: 53 years old Clinical indication: Numbness and weakness; Patient HX: Neuropathy, post-gi illness. ? 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 Total images: 594 Contrast material: DOTAREM; Contrast volume: 14 ml; Contrast route: INTRAVENOUS (IV); COMPARISON: MR THORACIC SPINE WO/W 03/17/2024 3:14 PM FINDINGS: Bones/joints: No significant vertebral body lesion. Small Schmorl's node inferior endplate L4. Multilevel disc desiccation without abnormal disc enhancement. Spinal cord: Visualized cord, conus medullaris and cauda equina are unremarkable. No abnormal conus or cauda equina nerve root enhancement. Discs/Spinal canal/Neural foramina: Disc bulging at L2-L3 and L3-L4 results in ahyz-ar-jwzdfprg central stenosis and mild foraminal narrowing. Disc bulging at L4-L5 results in moderate central stenosis and moderate left foraminal narrowing. Disc bulging at L5-S1 without significant central or neural foraminal narrowing. Soft tissues: Incidental Tarlov cysts of the S2 level. Intraperitoneal space: Small of free fluid cul-de-sac. Reproductive: Retroverted uterus. IMPRESSION: 1. No evidence of Guillain-Dayton neuropathy. 2. Multilevel degenerative related central stenosis. Dictated and Authenticated by: Alon Adame MD. Ordering:JANIYA Bello MD
[2024-03-17 23:55] LABS: Vitamin B12 312 pg/mL (193-986)
--- NOTE | 2024-03-18 00:48 | NUR.NOTE ---
Referral to Care Management to refer to [facility] Neurosurgery fax # [phone] to f/u in 1-3 months per neurosugery consult for new onset neuropathy.Nursing Note:
[2024-03-18 12:26] LABS: Lyme Ab w Rflx to Lyme Confirm Negative (Negative)
[2024-03-19 21:07] LABS: Anaplasma phagocytophilum Negative (Negative); B. miyamotoi PCR Negative (Negative); Babesia divergens/MO-1 Negative (Negative); Babesia duncani Negative (Negative); Babesia microti Negative (Negative); Ehrlichia chaffeensis Negative (Negative); Ehrlichia ewingii/canis Negative (Negative); Ehrlichia muris eauclairensis Negative (Negative)
== END 2024-03-17 23:23 | disposition home or self-care (01) ==
PROVIDERS: Physician Assistant; Emergency Provider Registered Nurse Emergency; PCP Physician Assistant Medical
DX: M51.37 Other intervertebral disc degeneration, lumbosacral region (principal); G57.01 Lesion of sciatic nerve, right lower limb; M79.671 Pain in right foot; M79.661 Pain in right lower leg; R20.2 Paresthesia of skin
CPT/HCPCS: 00123; 36415; 70553; 72158; 80053; 87798; 93005; 96374; 96375; 99284; 72156; 72157; 82607; 83735; 84439; 84443; 85025; 86140; 86618; 93010; 99283; J1200

== ENCOUNTER 2024-04-21 07:26 | Day surgery (SDC) | payer BC, SELFPAY ==
--- NOTE | 2024-04-20 16:10 | W.PREOPHP ---
Assessment and Plan Assessment and plan (1) Abdominal pain: Assessment and plan: We reviewed the plan for an EGD and colonoscopy today, and Jaclyn had another chance to ask any questions that she might have. There were no other significant changes, and we can proceed with bidirectional endoscopy as planned. History of Present Illness History of Present Illness Chief Complaint: abdominal pain Narrative: Jaclyn wasreferred here for anemia, and gastrointestinal symptoms. By way of some history, she is 53 years old, she is told me she has had longstanding gastroesophageal reflux disease. She underwent EGD and colonoscopy at [facility] maybe 10 to 11 years ago. She thinks she had a esophageal stricture that required dilation. She understands that she had a hiatal hernia as well. Otherwise, the test were nondiagnostic. It sounds like at that time, she had been experiencing nonspecific abdominal pain and chronic poorly controlled GERD. In the interim, she has had multiple episodes of that through the years. She has frequent nausea, often occurring around 3 to 4 AM and has been treated with ondansetron. It sounds like she has fairly longstanding mild constipation type symptoms. She says she moves her bowels every 2 to 3 days, mostly has small hard formed stools. She describes bowel movements as painful. She denies any melena or hematochezia. She has been seen in the emergency department on 2 occasions prior to this. Recent CT scan demonstrates some left-sided colitis. She is completing a prescription for ciprofloxacin currently. With regards to family medical history, she says her mother, and her maternal grandfather both had esophageal strictures. Past surgical history significant for cholecystectomy. PFSH All Active Problems GERD (gastroesophageal reflux disease) (Chronic) Anemia (Chronic) Dysphagia (Acute) Screening for colon cancer (Acute) Medical History Abdominal pain CAD (coronary artery disease) Pt states an IA in 2020. Went to [facility] with no stents placed. Migraine Dysmenorrhea (04/27/14) Endocervical polyp (04/27/14) Complex ovarian cyst (04/27/14) Seasonal/ environmental allergies Hypothyroidism Dysmenorrhea Depression Anxiety Menorrhagia Cervical polyp Essential hypertension Surgical History Cholecystectomy 2014 Family History Mother No problems noted. Father No problems noted. Other Diabetes Heart disease Mental disorder Myocardial infarction Personal history of malignant neoplasm Social History Smoking/Tobacco Use Status: Never Smoking risk assessment performed?: Yes Alcohol Intake: never Drug use: Never Substance use type: does not use Housing: house Do you feel safe at home: Yes Do you feel safe in your relationship?: Yes Meds Allergies and Home Medications Allergies Allergy/AdvReac Type Severity Reaction Status Date / Time NSAIDS (Non-Steroidal Allergy Severe Other (See Verified 04/21/24 07:58 Anti-Inflamma Comment) prednisone Allergy Unknown Other (See Verified 04/21/24 07:58 Comment) adhesive AdvReac Mild Skin Rash Verified 04/21/24 07:58 enviornmental Allergy Mild irritated Uncoded 04/21/24 07:58 eyes,sneezing Home Medications ?Medication ?Instructions ?Recorded ?Confirmed ?Type escitalopram oxalate 20 mg tablet 20 mg PO DAILY 12/08/14 04/21/24 History (Lexapro) ondansetron 4 mg disintegrating 4 mg PO Q6H PRN PRN Nausea / 12/08/14 04/21/24 Rx tablet Vomiting ##15 escitalopram oxalate 10 mg tablet 10 mg PO DAILY 01/15/22 04/21/24 History lisinopril 20 mg tablet 5 mg PO DAILY 01/15/22 04/21/24 History rosuvastatin 5 mg tablet 5 mg PO DAILY 01/15/22 04/21/24 History scopolamine base 1 mg over 3 days 1 patch transdermal Q3D PRN 01/15/22 04/20/24 History transdermal patch (Transderm-Scop) zaleplon 10 mg capsule 10 mg PO QHS PRN 01/15/22 04/21/24 History clonazepam 0.5 mg tablet 0.5 mg PO BID PRN 03/16/24 04/21/24 History levothyroxine 88 mcg capsule 88 mcg PO DAILY 03/16/24 04/21/24 History pantoprazole 40 mg tablet,delayed 40 mg PO DAILY 03/16/24 04/21/24 History release sucralfate 1 gram tablet (Carafate) 1 g PO QID 03/16/24 04/21/24 History fexofenadine 180 mg tablet 180 mg PO DAILY 04/20/24 04/21/24 History (Lesley Allergy) simvastatin 20 mg tablet 20 mg PO QPM 04/20/24 04/21/24 History Exam Const General: cooperative, healthy appearing and not in acute distress Neck Neck: normal visual inspection, no lymphadenopathy and supple Thyroid: thyroid normal Resp Effort & Inspection: normal respiratory effort Auscultation: clear to auscultation bilaterally Cardio Jugular venous pressure: no JVD Rate: regular rate Rhythm: regular rhythm Heart Sounds: S1 normal and S2 normal Neuro General: patient alert, patient awake and patient oriented x3 Psych Appearance: grossly normal
--- NOTE | 2024-04-20 16:12 | W.PM.ENDDOP ---
Date of service: 04/21/24 Time of Service: 11:35 Endoscopy Report DATE OF PROCEDURE: 04/21/24 PRE-OP DIAGNOSIS: Abdominal pain POST-OP DIAGNOSIS: other (Duodenal mass, antral gastritis, diverticulosis) PROCEDURE: EGD with biopsies and colonoscopy with biopsies SURGEON: Britton Granado ANESTHESIA TYPE: General:No Airway ESTIMATED BLOOD LOSS: 15 PATHOLOGY: other (Biopsies of duodenal mass, random biopsies of gastric antrum and body, random colon biopsies) COMPLICATIONS: None DISPOSITION: same day INDICATIONS: Jaclyn is a 53-year-old woman with chronic anemia and abdominal pain. PREP: Miralax/Dulcolax PROCEDURE START TIME: 10:22 PROCEDURE END TIME: 10:57 COLONOSCOPY RETRACTION TIME: 4 FINDINGS: Antral gastritis, and a duodenal mass that seems consistent with severe peptic ulcer disease. Colonic diverticulosis with suboptimal bowel prep PROCEDURE DESCRIPTION: After the initiation of monitored anesthetic care, and with the assistance of a bite block, I advanced a standard gastroscope through the mouth past the hypopharynx and into the esophagus.? Under the direct vision of the scope, I advanced down the esophagus towards the stomach.? The Z-line was regular appearing, measured 36 cm from the incisors. Once I entered the stomach, I performed a brief inspection, followed by retroflexion towards the gastric cardia.? This appeared normal.? I did not see signs of hiatal herniation. After that, I gently advanced the scope around the incisura angularis and examined the pylorus.? There was some antral gastritis, mostly in a radial pattern along the lesser curvature and the posterior wall of the antrum. Pylorus was widely patent, and I can navigate into the bulb of the duodenum without any difficulty. The first portion of the duodenum was blocked by narrowing of the duodenum and what appeared to be there were some fibrinous changes that gave the appearance of healing ulceration. I did not see any discrete visible vessels, although the visualization of this is extremely limited. Despite several efforts with irrigation, insufflation, and manipulation of the camera, I did not think it would be safe to advance past this as the lumen was quite compromised. Using cold forceps, I did biopsy tissue around this site in an effort to help refine the diagnosis. There was an appropriate amount of bleeding from the biopsies. I brought the camera back up into the stomach and examined it once again. No other abnormalities were appreciated here. I did do some random biopsies of the gastric antrum and body in an effort to rule out Helicobacter pylori. I then emptied the stomach, brought the camera out along the length of the esophagus which was examined 1 more time. No other abnormalities were appreciated. We then rolled Jaclyn into the left lateral decubitus position. I began by performing an external anorectal exam.? Perineum and skin were normal, as was the anal verge.? There was no evidence of external hemorrhoids.? Next, I performed a digital rectal exam.? I did not appreciate any abnormal findings.? Next, I advanced a colonoscope into the rectal vault.? I performed retroflexion.? There is stool in the rectal vault. It was mixed solid and liquid stool, and several efforts were made to irrigate and clean. Rectal tissue appeared normal, without any evidence of chronic or acute inflammation.? Using insufflation, I then advanced the colonoscope beyond the rectal folds and into the sigmoid colon before advancing towards the cecum.? The quality of the prep was quite poor.? Because of solid stool, it was impossible to see the appendiceal orifice. I was able to see some succus draining into the colon, but I was not able to navigate into the terminal ileum. There was no obvious inflammation here, but this was extremely limited by the fecal residue.? I then began withdrawing the colonoscope using repeated irrigation in an effort to visualize mucosa. Random colon biopsies were performed with cold forceps, but no discrete abnormality was appreciated. Again, this test is extremely limited by the remaining stool. I did see some occasional diverticula along the length of the colon. I did not see any signs of tumors or polyps, but again, this is limited and I would certainly consider another effort at screening colonoscopy in the next 5 years.
--- NOTE | 2024-04-20 16:13 | W.PM.DSUDISC ---
Date of service: 04/21/24 Time of Service: 11:27 Discharge Plan Disposition Patient Disposition: Home Condition: Good Discharge Details Reason For Visit: EGD and colonoscopy Attending Provider: Britton Granado Primary Care Provider: Maryanne Buckley Home Meds and New Rx's Prescriptions: Continued levothyroxine 88 mcg capsule 88 mcg PO DAILY pantoprazole 40 mg tablet,delayed release (DR/EC) 40 mg PO DAILY sucralfate [Carafate] 1 gram tablet 1 g PO QID zaleplon 10 mg capsule 10 mg PO QHS PRN Rx Instructions: must avoid high-fat meal/food immediately before taking dose rosuvastatin 5 mg tablet 5 mg PO DAILY lisinopril 20 mg tablet 5 mg PO DAILY scopolamine base [Transderm-Scop] 1 mg over 3 days patch 3 day 1 patch transdermal Q3D PRN escitalopram oxalate 10 mg tablet 10 mg PO DAILY clonazepam 0.5 mg tablet 0.5 mg PO BID PRN escitalopram oxalate [Lexapro] 20 MG tablet 20 mg PO DAILY ondansetron 4 MG tablet,disintegrating 4 mg PO Q6H PRN PRN (Reason: Nausea / Vomiting) Qty: 15 0RF fexofenadine [Lesley Allergy] 180 mg tablet 180 mg PO DAILY simvastatin 20 mg tablet 20 mg PO QPM Patient Comments: TAKE 1 TABLET BY MOUTH AT BEDTIME Discharge Instructions Additional Instructions: Jaclyn, we were able to perform your test today without much difficulty. I hope you are comfortable. With regards to the EGD, there is a little bit of inflammation in the bottom part of your stomach, right where it connects to the first part of your small bowel, which is also called the duodenum. I can get the camera into the very first part of the duodenum, but after that, it tightens quite a bit, and I think am seeing an ulcer in that area. Despite several efforts to navigate beyond it, I did not think this would be safe. I did do several biopsies of this, as well as some other parts of the stomach, in order to help refine the diagnosis. I have also taken the liberty of ordering a type of an x-ray to look to see how well your stomach empties. I did like you to coordinate this with radiology over the next few weeks, and get the test whenever you can. In the meantime, I think that you should continue with pantoprazole and sucralfate, which are the common treatments of peptic ulcer disease. Your colonoscopy was more challenging. To be very truthful, the prep was inadequate for a majority of diagnostic needs. I certainly saw some signs of diverticulosis, which does fit with some of the imaging that you had done previously. Similarly, I did not see any obvious signs of things like Crohn's disease or ulcerative colitis, although this is limited by the stool that remains in the large intestine. I was able to do several biopsies of the large intestine, and sometimes those can show abnormalities. The soonest available appointment I have coming up is on the at 11:30 AM. I went ahead and booked that for you. I will absolutely have biopsy results prior to that, and hopefully we can get the x-rays before that as well. I will be sure to call you once I have results. 1. If tolerated, consume a soft, low fiber diet for 1-2 days. [address] Do not drive, drink alcohol, operate machinery, make critical decisions, or do activities that require coordination or balance for 24 hours. 3. Because air was put into your colon during the procedure, expelling air from your rectum (passing gas or farting) is normal. 4. You may not have a bowel movement for 1-3 days because of the colonoscopy prep. This is normal. 5. You may experience a sore throat for 24 to 48 hours. You may use throat lozenges or gargle with warm salt water to relieve the discomfort. 6. Because air was put into your stomach during the procedure, you may experience some belching. 7. Go directly to the emergency room if you notice any of the following: Develop chills (warm to touch), or if you have a thermometer and your temperature is above 101 Difficulty breathing or difficultly swallowing Persistent vomiting Severe abdominal pain, other than gas cramps Severe chest pain Black, tarry stools Any bleeding ? exceeding one tablespoon 8. Call your physician if the site where your intravenous was started becomes red, swollen, painful, and warm to touch. 9. Your physician has reviewed your pre-procedure medications. Please continue to take those medications as previously ordered. You will be given specific information/education regarding any changes to your medications before leaving. Stand Alone Forms: Drea DELATORRE) Activity:: Activity as Tolerated Diet:: As Tolerated Discharge Orders Discharge Orders: Discharge Order (Routine); Ordered 04/20/24 Ordered By: Britton Granado DS: Diagnosis Discharge Diagnosis (1) Abdominal pain: Asessment and Plan: Outpatient follow-up for biopsy results
[2024-04-21 08:02] VITALS: BP 114/65; PULSE 57; RESP 16; TEMP 36.5; O2SAT 99
[2024-04-21] MEDS: Lactated Ringers 1,000 ML 80 ML IV (08:20)
--- NOTE | 2024-04-21 08:29 | W.ANESPRE ---
General Info Date of Service Date Performed: 04/21/24 Height: 5 ft 4 in Weight: 67.1 kg Body Mass Index (BMI): 25.4 Surgical Procedure: Operation Date: 04/21/24 10:05 Proposed Procedure Side Surgeon p Colonoscopy/Gastroscopy Britton Granado MD Meds Allergies and Home Medications Allergies Allergy/AdvReac Type Severity Reaction Status Date / Time NSAIDS (Non-Steroidal Allergy Severe Other (See Verified 04/21/24 07:58 Anti-Inflamma Comment) prednisone Allergy Unknown Other (See Verified 04/21/24 07:58 Comment) adhesive AdvReac Mild Skin Rash Verified 04/21/24 07:58 enviornmental Allergy Mild irritated Uncoded 04/21/24 07:58 eyes,sneezing Home Medication ?Medication ?Instructions ?Recorded escitalopram oxalate 20 mg tablet 20 mg PO DAILY 12/08/14 (Lexapro) ondansetron 4 mg disintegrating 4 mg PO Q6H PRN PRN Nausea / 12/08/14 tablet Vomiting ##15 escitalopram oxalate 10 mg tablet 10 mg PO DAILY 01/15/22 lisinopril 20 mg tablet 5 mg PO DAILY 01/15/22 rosuvastatin 5 mg tablet 5 mg PO DAILY 01/15/22 scopolamine base 1 mg over 3 days 1 patch transdermal Q3D PRN 01/15/22 transdermal patch (Transderm-Scop) zaleplon 10 mg capsule 10 mg PO QHS PRN 01/15/22 clonazepam 0.5 mg tablet 0.5 mg PO BID PRN 03/16/24 levothyroxine 88 mcg capsule 88 mcg PO DAILY 03/16/24 pantoprazole 40 mg tablet,delayed 40 mg PO DAILY 03/16/24 release sucralfate 1 gram tablet (Carafate) 1 g PO QID 03/16/24 fexofenadine 180 mg tablet 180 mg PO DAILY 04/20/24 (Lesley Allergy) simvastatin 20 mg tablet 20 mg PO QPM 04/20/24 Current Visit Medications: Current Medications Generic Name Dose Route Start Last Admin Trade Name Freq PRN Reason Stop Dose Admin Hyoscyamine Sulfate 0.125 mg 04/20/24 16:13 Hyoscyamine 0.125 Mg Sl/Oral/Chew SL 05/20/24 16:12 DIRECTED PRN Ringer's Solution 1,000 mls @ 80 mls/hr 04/21/24 06:00 04/21/24 08:20 IV 04/21/24 23:59 80 mls/hr INFUSION JOSELYN Administration IV Miscellaneous Supplies 1 each 04/21/24 06:00 Iv Access IV 04/21/24 23:59 DIRECTED JOSELYN Sodium Chloride 0 ml 04/21/24 06:00 Normal Saline Flush 10 Ml Syr IV 04/21/24 23:59 PRN PRN Sodium Chloride 0 ml 04/21/24 06:00 Normal Saline 10 Ml Vial IJ 04/21/24 23:59 DIRECTED PRN Sterile Water 0 ml 04/21/24 06:00 Water,Injection,Sterile 10 Ml Vial IJ 04/21/24 23:59 DIRECTED PRN PFSH Active Problems Active Problems: Problem Status Onset Code GERD (gastroesophageal reflux disease) Chronic K21.9 Anemia Chronic D64.9 Dysphagia Acute R13.10 Screening for colon cancer Acute Z12.11 Medical History Medical History Abdominal pain CAD (coronary artery disease) Migraine Dysmenorrhea (04/27/14) Endocervical polyp (04/27/14) Complex ovarian cyst (04/27/14) Seasonal/ environmental allergies Hypothyroidism Dysmenorrhea Depression Anxiety Menorrhagia Cervical polyp Essential hypertension Surgical History Surgical History Cholecystectomy 2014 Tobacco Smoking/Tobacco Use Status: Never Alcohol Alcohol Intake: never Substance Use Substance use: Never Substance use type: does not use Vital Signs and Lab Results Vital Signs Most Recent Vital Signs in EMR: Most Recent Vital Signs Temp Pulse Resp BP Pulse Ox 36.5 C 57 L 16 114/65 99 04/21/24 08:02 04/21/24 08:02 04/21/24 08:02 04/21/24 08:02 04/21/24 08:02 Lab Results Blood Type / Crossmatch: No Data to Display Complete Blood Count: No Data to Display Complete Metabolic Panel: No Data to Display Liver Function Panel: No Data to Display Coagulation Panel: No Data to Display Cardiac Panel: No Data to Display Arterial Blood Gas: No Data to Display Venous Blood Gas: No Data to Display Pancreas Panel: No Data to Display Thyroid Panel: No Data to Display Infectious Disease: No Data to Display Blood Cultures: No Data to Display Toxicology Panel: No Data to Display Panel: No Data to Display Anesthesia Assessment and Plan Anesthesia History Personal History: No History of Anesthesia Complications Family History: No Family History of Anesthesia Complications Exercise Tolerance Exercise Tolerance: Metabolic Equivalents>4 Pertinent Negatives Pertinent Negatives: No Symptoms of GERD, No Major Pulmonary Symptoms or Complaints and No History of CVA/TIA Cardiac & Pulmonary Exam Cardiac Exam: Normal S1/S2 Heart Sounds Pulmonary Exam: Clear Bilateral Breath Sounds Implantable Cardiac Device Does patient have a Pacemaker or an ICD?: No Airway Exam Known Difficult Airway: No Mallampati Class: 1 Mouth Opening: Normal (> 3cm) Thyromental Distance: Greater than 3 cm Neck Range of Motion: Full ROM Neck Circumference: Normal Teeth Condition: Normal Dentition ASA Classification ASA Score: ASA 3 Emergency Case?: No NPO Status NPO Status: NPO Clears >2 hours, Solids >8 hours Status Status: Not Relevant due to Medical History Anesthesia Plan Resuscitation Status: Full Code Anesthesia Technique: General Anesthesia Airway Planned: Natural Airway Monitors Used: Standard Monitors
[2024-04-21 08:34] VITALS: BMI 25.4
--- NOTE | 2024-04-21 10:33 | BOWEL_PTH ---
PATIENT: Jaclyn Carver LOC: [facility] U#:[id number] AGE/SX: 53/F ROOM: RE04/21/[address]: Britton Granado MD : [id number] BED: DIS: 04/21/2024 SPEC #: [id number] RECD: 04/21/24 13:12 STATUS: ARCELIA RE #: [id number] CHAPIS: 04/21/24 10:[address]: Britton Granado DEPT: Surgical Specimen RECD BY: Sarah Aguirre ENTERED: 04/21/24 13:13 SP TYPE: Bowel OTHR DR: Maryanne Buckley Tissues: 1 - BIOPSY BOWEL 2 - STOMACH BIOPSY 3 - STOMACH BIOPSY 4 - BIOPSY BOWEL Procedures: GROSS AND MICRO LEVEL 4 Comments: [id number]
[2024-04-21 11:13] VITALS: BP 100/45; PULSE 72; RESP 16; TEMP 37; O2SAT 97
[2024-04-21 11:44] VITALS: BP 128/71; PULSE 57; RESP 18; TEMP 36.2; O2SAT 99
--- NOTE | 2024-04-21 11:49 | W.ANESPOSTOP ---
Postoperative Evaluation Date, Time and Location Date Performed: 04/21/24 Time Performed: 11:49 Patient Location: Day Surgery Unit Vital Signs Most Recent Imported Vital Signs: Most Recent Vital Signs Temp Pulse Resp BP Pulse Ox 37 C 72 16 100/45 L 97 04/21/24 11:13 04/21/24 11:13 04/21/24 11:13 04/21/24 11:13 04/21/24 11:13 Pain Score Most Recent Pain Score: Most Recent Pain Score Pain Level 0 04/21/24 11:13 Assessment Mental Status: Awake (Alert & Oriented to Patient Baseline) Airway and Respiratory Function: Patent airway with normal (patient baseline) respiratory exam Cardiovascular Function: Hemodynamically Stable Hydration Status: Adequately Hydrated Nausea & Vomiting: No Nausea or Vomiting Pain: Pt. Denies Any Pain Peripheral Nerve Block: Patient did not receive a nerve block
== END 2024-04-21 12:13 | disposition home or self-care (01) ==
LOC: SUR 07:26
PROVIDERS: PCP Physician Assistant Medical; Visit Provider Surgery
PROC: (CPT 45380; principal; 2024-04-21 10:00)
DX: R10.9 Unspecified abdominal pain (principal); Z12.11 Encounter for screening for malignant neoplasm of colon; D64.9 Anemia, unspecified; K31.89 Other diseases of stomach and duodenum; K29.00 Acute gastritis without bleeding
CPT/HCPCS: 45380; 43239; 88305; J2001; J2704

== ENCOUNTER 2024-05-10 02:40 | Outpatient (CLI) | payer BC, SELFPAY ==
[2024-05-10] MEDS: Barium Sulfate 98% W/W 140 ML BTL PO (10:48)
[2024-05-10] MEDS: Barium Sulfate 60% W/V 355 ML BTL PO (10:49)
--- NOTE | 2024-05-10 11:30 | DI.RAD_ITS ---
Exam(s) RF BARIUM SWALLOW UGI EXAM: RF BARIUM SWALLOW UGI CLINICAL HISTORY: duodenal stricture or ulcer,K26.9 TECHNIQUE: 2D and real-time digital imaging was performed. CONTRAST MATERIAL: Oral barium contrast was administered. COMPARISON: CR,MANUEL RF BARIUM SWALLOW from 12/17/[address] ABDOMEN PELVIS W from 02/21/[address] ABDOMEN PELVIS W from 03/04/2024 FINDINGS: Chest x-ray: Heart size and pulmonary vasculature within normal limits. The lungs are clear. No eff usion or pneumothorax is identified. Initial plain film of the abdomen reveals normal stool and air pattern. No abnormal calcifications ar e seen. Esophagus: The esophagus is patent with no evidence for erosions, fold thickening, strictures, or ma sses. With regards to the motility, there is a normal primary stripping wave. No tertiary contraction s were noted. There is no hiatal hernia or gastroesophageal reflux. Stomach: The stomach shows no gastric fold thickening, erosions, or masses. Duodenal Bulb: Shows no gastric fold thickening, erosions, or masses. There was delayed passage thro ugh the horizontal portion of the duodenum but no stricture or ulcer is seen. IMPRESSION: There was delayed passage of the barium through the 3rd portion of the duodenum but no stricture or u lcer is seen in this area. This was an otherwise unremarkable upper GI barium swallow. RADIATION DOSE DELIVERED: huy Isaac= 165 mGy
== END 2024-05-10 03:00 ==
LOC: DI 02:40
PROVIDERS: PCP Physician Assistant Medical; Visit Provider Surgery
DX: K26.9 Duodenal ulcer, unspecified as acute or chronic, without hemorrhage or perforation (principal)
CPT/HCPCS: 74221; 74246; J3490

== ENCOUNTER 2024-06-01 05:27 | Outpatient (CLI) | payer BC, SELFPAY ==
[2024-06-01 12:49] LABS: Albumin 3.8 g/dL (3.4-5.0)
[2024-06-02 10:09] LABS: Transferrin 249 mg/dL (201-352)
[2024-06-02 20:29] LABS: Gastrin 23 pg/mL
[2024-06-03 23:26] LABS: Calprotectin <50.0 mcg/g
[2024-06-04 12:13] LABS: Helicobacter pylori Ag, Feces Negative (Negative)
== END 2024-06-01 05:28 | disposition home or self-care (01) ==
PROVIDERS: Surgery; PCP Physician Assistant Medical; Visit Provider Physician Assistant Medical
DX: E46 Unspecified protein-calorie malnutrition (principal); K26.9 Duodenal ulcer, unspecified as acute or chronic, without hemorrhage or perforation; K52.9 Noninfective gastroenteritis and colitis, unspecified
CPT/HCPCS: 36415; 87338; 82040; 82941; 83993; 84466

== ENCOUNTER 2024-07-06 11:53 | Emergency (ER) | payer BC, SELFPAY ==
[2024-07-06] VITALS (16 sets, daily range): BP systolic 118–135; BP diastolic 74–92; PULSE 67–88; RESP 12–24; TEMP 36.6; O2SAT 95–99
--- OUTSIDE RECORDS SUMMARY | 2024-07-06 12:03 | XMS_ITS | Continuity of Care Document ---
Author Organization [facility] Address [address] [place] [address] Care Team Providers Care Transcripter Name Role Phone KESHIA GOLDBERG PA-C Primary Care Marydianna dickson Encounter [facility] NBR [id number] Date(s): 03/03/23 - 03/03/23 [facility] [address] [place] [address]- Discharge Disposition: Home Allergies, Adverse Reactions, Alerts Substance Reaction Severity Status predniSONE Severe Active Medications clonazePAM 0.5 mg oral tablet TAKE 1 TABLET BY MOUTH TWICE DAILY NEEDED Start Date: 11/11/22 Status: Ordered escitalopram 10 mg oral tablet TAKE 1 TABLET BY MOUTH ONCE DAILY WITH A 20MG TABLET FOR A TOTAL DAILY DOSE OF 30MG Start Date: 11/11/22 Status: Ordered escitalopram 20 mg oral tablet TAKE 1 TABLET BY MOUTH ONCE DAILY WITH A 10MG TABLET Start Date: 11/11/22 Status: Ordered esomeprazole 40 mg oral delayed release capsule TAKE 1 CAPSULE BY MOUTH ONCE DAILY Start Date: 11/11/22 Status: Ordered levothyroxine 75 mcg (0.075 mg) oral tablet TAKE 1 TABLET BY MOUTH ONCE DAILY Start Date: 11/11/22 Status: Ordered lisinopril 5 mg oral tablet TAKE 1 TABLET BY MOUTH ONCE DAILY Start Date: 11/11/22 Status: Ordered penicillin V potassium 500 mg oral tablet 500 mg = 1 tab, Oral, every 8 hr, # 30 tab, 0 Refill(s), Pharmacy: [facility] Start Date: 11/11/22 Stop Date: 11/21/22 Status: Ordered SUMAtriptan 100 mg oral tablet TAKE 1 TABLET BY MOUTH NEEDED FOR HEADACHE . MAY REPEAT 1 TIME IN 4 HOURS IF NEEDED. DO NOT TAKEMORE THAN 2 TABLETS IN A 24 HOUR PERIOD. Start Date: 11/11/22 Status: Ordered zaleplon 10 mg oral capsule TAKE 1 CAPSULE BY MOUTH ONCE DAILY AT NIGHT NEEDED FOR SLEEP Start Date: 11/11/22 Status: Ordered ZyrTEC 10 mg oral tablet 10 mg = 1 tab, Oral, Daily, # 30 tab, 0 Refill(s) Start Date: 11/11/22 Status: Ordered Problem List Condition Confirmation Course Effective Dates Status Health St atus Informant Dental decay Confirmed Active Pain due to dental caries Confirmed Active Vomiting Confirmed Active Social History Social History Type Response Tobacco Never tobacco user T obacco Use:. Sex Patient Care team information Care Team Personnel Name: KESHIA GOLDBERG PA-C Position: No Access Member Role: Primary Care Physician Address: Address: [address] Care Team Related Persons Name: ZAHIRA SANTILLAN Address: Home
--- OUTSIDE RECORDS SUMMARY | 2024-07-06 12:03 | XMS_ITS | Referral Summary ---
Author Organization [facility] Address [address] [place] [address] Care Team Providers Care Information Services Vice President Name Role Phone Maryanne Buckley PA-C Primary Care Provider + Encounters Date Type Department Care Team Description 06/01/2024 Lab Requisition [facility] [address] [address] Outr Resulting Lab, Provider 06/01/2024 Lab Requisition [facility] [address] [address] Outr Resulting Lab, Provider 04/21/2024 Lab Requisition [facility] [address] [address] Britton Granado MD Unspecified abdominal pain from Last 3 Months Social History Tobacco Use Types Packs/Day Years Used Date Smoking Tobacco: Never Assessed Interpersonal Safety Answer Date Record ed Physically Hurt Never 04/30/2020 Verbally Threaten Not on file 04/30/2020 Sex and Gender Information Value Date Recorded Sex Assigned at Not on file Gender Identity Not on file Sexual Orientation Not on file Plan of Treatment Not on file Procedures Procedure Name Priority Date/Time Associated Diagnosis Comments TRANSFERRIN Routine 06/01/2024 12:10 EDT H. PYLORI ANTIGEN Routine 06/01/2024 11: 45 EDT SURGICAL PATHOLOGY Today 04/21/2024 10 :33 EDT Unspecified abdominal pain from Last 3 Months Results * TRANSFERRIN (06/01/2024 12:10 EDT) Transferrin 249 201 - 352 mg/dL 06/02/2024 10:04 EDT [facility] Blood VENOUS BLOOD / Unknown 06/01/2024 12:10 EDT 06/01/2024 21:55 EDT Provider Outr Resulting Lab CHEMISTRY & BLOOD GAS ORDERABLES Performing Organization Address City/[facility]/ZIP Co de Phone Number [facility] [address] [place] [address] * H. PYLORI ANTIGEN (06/01/2024 11:45 EDT) H. Pylori Negative Negative 06/04/2024 12:08 EDT [facility] Comment:Indicates the absenc e of H. pylori stool antigen, (or the level of antigen is below that which can be detected by the assay) Feces SPECIMEN FROM RECTUM / Unknown 06/01/2024 11:45 EDT 06/01/2024 22:24 EDT Narrative [facility] - 06/04/2024 12:08 EDT New Liaison XL testing method used as of 07/21/2023 Provider Outr Resulting Lab MICROBIOLOGY - GENERAL ORDERABLES Performing Organization Address [facility] Co de Phone Number [facility] [address] [place] [address] [phone] * SURGICAL PATHOLOGY (04/21/2024 10:33 EDT) Note to Patient The following pathology results have been interpreted by your pathologist and may be available to you before your health provider has had the opportunity to review them. Please allow time for your provider to receive these results and explore management options, if applicable. 04/23/2024 12:16 EDT [facility] Final Diagnosis A. DUODENUM, BIOPSY: - Enteric mucosa with features suggestive of peptic duodenitis. - Deeper levels examined. - See comment. B. STOMACH, ANTRUM, BIOPSY: - Antral-type mucosa with chemical (reactive) gastropathy. C. STOMACH, BODY, BIOPSY: - Oxyntic-type mucosa with no significant diagnostic abnormality. D. COLON, RANDOM, BIOPSY: - Colonic mucosa with no significant diagnostic abnormality. 04/23/2024 12:16 [facility] Diagnosis Comment The history of a duodenal mass is noted. If clinical concern for an unsampled lesion persist, re-biopsy may be considered. 04/23/2024 12:16 [facility] Attestation By the signature below, the attending physician certifies that they have 1) personally conducted a gross and/or microscopic examination of the described specimen(s), and/or personally interpreted the results of laboratory testing of the described specimen(s), and 2) personally rendered or confirmed the above diagnosis. 04/23/2024 12:16 [facility] at 1216 Clinical History Anemia and colitis, duodenal mass, diverticulosis 04/23/2024 12:16 [facility] Gross Description A. Received in formalin labelled with proper patient identification (initials S, K) and duodenal biopsy x2 are 4 rod tissue fragments (0.2 x 0.1 x 0.1 cm to 0.4 x 0.2 x 0.1 cm). Entirely submitted in A1. B. Received in formalin labelled with proper patient identification (initials S, K) and antrum biopsy are 2 pale-rod tissue fragments (0.3 x 0.2 x 0.1 cm and 0.3 x 0.3 x 0.1 cm). Entirely submitted in B1. C. Received in formalin labelled with proper patient identification (initials S, K) and body biopsy are 2 rod tissue fragments (0.3 x 0.2 x 0.1 cm and 0.3 x 0.3 x 0.1 cm). Entirely submitted in C1. D. Received in formalin labelled with proper patient identification (initials S, K) and random colon biopsy x5 are 10 rod tissue fragments (0.1 x 0.1 x 0.1 cm to 0.4 x 0.2 x 0.1 cm). Entirely submitted in D1-D2. Kathy Cortez 04/22/2024 6:31 04/23/2024 12:16 [facility] Performing Lab [facility] 04/23/2024 12:16 EDT [facility] Scanned Images 04/23/2024 12:16 EDT [facility] Tissue COLON STRUCTURE / Unknown 04/21/2024 10:33 EDT 04/21/2024 17:44 EDT Tissue specimen (specimen) STOMACH STRUCTURE / Unknown 04/21/2024 10:33 EDT 04/21/2024 17:44 EDT Tissue specimen (specimen) STOMACH STRUCTURE / Unknown 04/21/2024 10:33 EDT 04/21/2024 17:44 EDT Tissue specimen (specimen) COLON STRUCTURE / Unknown 04/21/2024 10:33 EDT 04/21/2024 17:44 EDT Britton Granado MD PATHOLOGY ORDERABLES [facility] [address] [place] [address] from Last 3 Months Care Teams Information Services Vice President Relationship Specialty Start Date End Date Maryanne Buckley PA-C PCP - General 05/09/14
--- OUTSIDE RECORDS SUMMARY | 2024-07-06 12:03 | XMS_ITS | Encounter Summary ---
Author Organization [facility] Address [address] [place] [address] Care Team Providers Care Chocolate Dipper Name Role Phone Maryanne Buckley PA-C Primary Care Provider + Encounter Details Date Type Department Care Team (Late st Contact Info) Description 06/01/2024 Lab Requisition [facility] Pathology & Laboratory Medicine - [address] [id number] Outr Resulting Lab, Provider Social History Tobacco Use Types Packs/Day Years Used Date Smoking Tobacco: Never Assessed Interpersonal Safety Answer Date Record ed Physically Hurt Never 04/30/2020 Verbally Threaten Not on file 04/30/2020 Sex and Gender Information Value Date Recorded Sex Assigned at Not on file Gender Identity Not on file Sexual Orientation Not on file documented as of this encounter Plan of Treatment Not on file documented as of this encounter Procedures Procedure Name Priority Date/Time Associated Diagnosis Comments H. PYLORI ANTIGEN Routine 06/01/2024 11: 45 EDT documented in this encounter Results * H. PYLORI ANTIGEN (06/01/2024 11:45 EDT) H. Pylori Negative Negative 06/04/2024 12:08 EDT [facility] Comment:Indicates the absenc e of H. pylori stool antigen, (or the level of antigen is below that which can be detected by the assay) Feces SPECIMEN FROM RECTUM / Unknown 06/01/2024 11:45 EDT 06/01/2024 22:24 EDT Narrative [facility] - 06/04/2024 12:08 EDT New Liaison XL testing method used as of 07/21/2023 Provider Outr Resulting Lab MICROBIOLOGY - GENERAL ORDERABLES [facility] [address] [place] [id number] documented in this encounter Visit Diagnoses Not on filedocumented in this encounter Care Teams Chocolate Dipper Relationship Specialty Start Date End Date Maryanne Buckley PA-C PCP - General 05/09/14 documented as of this encounter
--- OUTSIDE RECORDS SUMMARY | 2024-07-06 12:03 | XMS_ITS | Clinical Summary ---
Author Organization [facility] Address [address] [place] [address] Care Team Providers Care Marketing Campaign Analyst Name Role Phone Maryanne Buckley PA-C Primary Care Provider + Encounters Date Type Department Care Team Description 06/01/2024 Lab Requisition [facility] [address] [address] Outr Resulting Lab, Provider 06/01/2024 Lab Requisition [facility] [address] [address] Outr Resulting Lab, Provider 04/21/2024 Lab Requisition [facility] [address] [address] Britton Granado MD Unspecified abdominal pain from [...] Orientation Not on file Plan of Treatment Health Maintenance Due Date Last Done Comments Hepatitis C Screen 1970 Hepatitis B Vaccine (1 of 3 - 19+ 3-dose series) 09/12 COVID-19 Vaccine ( season) 2023 Procedures Procedure Name Priority Date/Time Associated Diagnosis Comments TRANSFERRIN Routine 06/01/2024 12:10 EDT H. PYLORI ANTIGEN Routine 06/01/2024 11: 45 EDT SURGICAL PATHOLOGY Today 04/21/2024 10 :33 EDT Unspecified abdominal pain from Last 3 Months Results * TRANSFERRIN (06/01/2024 12:10 EDT) Transferrin 249 201 - 352 mg/dL 06/02/2024 10:04 EDT [facility] Blood VENOUS BLOOD / Unknown 06/01/2024 12:10 EDT 06/01/2024 21:55 EDT Provider Outr Resulting Lab CHEMISTRY & BLOOD GAS ORDERABLES Performing Organization Address [facility] [[email or web address]] Co de Phone Number [facility] [address], [place] [phone] * H. PYLORI ANTIGEN (06/01/2024 11:45 EDT) H. Pylori Negative Negative 06/04/2024 12:08 EDT [facility] Comment:Indicates the absenc e of H. pylori stool antigen, (or the level of antigen is below that which can be detected by the assay) Feces SPECIMEN FROM RECTUM / Unknown 06/01/2024 11:45 EDT 06/01/2024 22:24 EDT Narrative [facility] - 06/04/2024 12:08 EDT New Liaison XL testing method used as of 07/21/2023 Provider Outr Resulting Lab MICROBIOLOGY - GENERAL ORDERABLES Performing Organization Address City/[facility]/ZIP Co de Phone Number [facility] [address] [place] [address] * SURGICAL PATHOLOGY (04/21/2024 10:33 EDT) Note to Patient The following pathology results have been interpreted by your pathologist and may be available to you before your health provider has had the opportunity to review them. Please allow time for your provider to receive these results and explore management options, if applicable. 04/23/2024 12:16 EDT [facility] Final Diagnosis A. DUODENUM, BIOPSY: - Enteric mucosa with features suggestive of peptic duodenitis. - Deeper levels examined. - See comment. B. STOMACH, ANTRUM, BIOPSY: - Antral-type mucosa with chemical (reactive) gastropathy. C. STOMACH, BODY, BIOPSY: - Oxyntic-type mucosa with no significant diagnostic abnormality. D. COLON, RANDOM, BIOPSY: - Colonic mucosa with no significant diagnostic abnormality. 04/23/2024 12:16 [facility] Diagnosis Comment The history of a duodenal mass is noted. If clinical concern for an unsampled lesion persist, re-biopsy may be considered. 04/23/2024 12:16 [facility] Attestation By the signature below, the attending physician certifies that they have 1) personally conducted a gross and/or microscopic examination of the described specimen(s), and/or personally interpreted the results of laboratory testing of the described specimen(s), and 2) personally rendered or confirmed the above diagnosis. 04/23/2024 12:16 [facility] at 1216 Clinical History Anemia and colitis, duodenal mass, diverticulosis 04/23/2024 12:16 [facility] Gross Description A. Received in [...] D1-D2. Kathy Cortez 04/22/2024 6:31 04/23/2024 12:16 EDT [facility] Performing Lab [facility] 04/23/2024 12:16 EDT [facility] Scanned Images 04/23/2024 12:16 EDT [facility] Tissue COLON STRUCTURE / Unknown 04/21/2024 10:33 EDT 04/21/2024 17:44 EDT Tissue specimen (specimen) STOMACH STRUCTURE / Unknown 04/21/2024 10:33 EDT 04/21/2024 17:44 EDT Tissue specimen (specimen) STOMACH STRUCTURE / Unknown 04/21/2024 10:33 EDT 04/21/2024 17:44 EDT Tissue specimen (specimen) COLON STRUCTURE / Unknown 04/21/2024 10:33 EDT 04/21/2024 17:44 EDT Britton Granado MD PATHOLOGY ORDERABLES [facility] [address], [place] [address] from Last 3 Months Care Teams Marketing Campaign Analyst Relationship Specialty Start Date End Date Maryanne Buckley PA-C PCP - General 05/09/14
--- OUTSIDE RECORDS SUMMARY | 2024-07-06 12:03 | XMS_ITS | Continuity of Care Document ---
Author Organization [facility] Address [address] [place] [address] Encounter [facility] NBR [id number] Date(s): 11/11/22 - 11/11/22 [facility] [address] [place] [address]- [place] Encounter Diagnosis Pain, dental(Discharge Diagnosis) - 11/11/22 Discharge Disposition: Home or Self Care Attending Physician: Aneta Hargrove APRN Allergies, Adverse Reactions, Alerts Substance Reaction Severity Status predniSONE Severe Active Functional Status 11/11/22 Other exposure to Infectious Disease Non e Medications clonazePAM 0.5 mg oral tablet TAKE [...] hr, # 30 tab, 0 Refill(s), Pharmacy: [facility] Start Date: 11/11/22 Stop Date: [...] 0 Refill(s) Start Date: 11/11/22 Status: Ordered Vital Signs Most recent to oldest [Reference Range]: 1 Temperature Tympanic [36.6-37.9 Deg C] 3 6.7 Deg C (11/11/22 9:11 AM) Peripheral Pulse Rate [60-100 bpm] 74 bp m (11/11/22 9:11 AM) Blood Pressure [90-140/60-90 mmHg] 130/7 1mmHg (11/11/22 9:11 AM) Weight 67.13 kg (11/11/22 9:11 AM) Weight Measured (lbs) 147.996 lb (11/11/22 9:11 AM) Height 162.56 cm (11/11/22 9:11 AM) Height/Length Measured (inches) 64 inch (11/11/22 9:11 AM) BSA Measured 1.74 m2 (11/11/22 9:11 AM) Body Mass Index 25.4 kg/m2 (11/11/22 9:11 AM) Social History Social History Type Response Tobacco Never tobacco user T obacco Use:. Sex Hospital Discharge Instructions Patient Education 11/11/2022 08:23:33 Dental Pain Dental Pain Dental pain is often a sign that something is wrong with your teeth or gums. It is also something that can occur following dental treatment. If you have dental pain, it is important to contact your dental care provider, especially if the cause of the pain has not been determined. Dental pain may beof varying intensity and can be caused by many things, including: ??? Tooth decay (cavities or caries). Cavities are caused by bacteria that produce acids that irritate the nerve of your tooth, making it sensitive to air and hot or cold temperatures. This eventually causes discomfort or pain. ??? Abscess or infection. Once the bacteria reach the inner part of the tooth (pulp), a bacterial infection (dental abscess) can occur. Pus typically collects at the end of the root of a tooth. ??? Injury. ??? A crack in the tooth. ??? Gum recession exposing the root, and possibly the nerves, of a tooth. ??? Gum (periodontal)disease. ??? Abnormal grinding or clenching. ??? Poor or improper home care. ??? An unknown reason (idiopathic). Your pain may be mild or severe. It may occur when you are: ??? Chewing. ??? Exposed to hot or cold temperatures. ??? Eating or drinking sugary foods or beverages, such as soda or candy. Your pain may be constant, or it may come and go without cause. Follow these instructions at home: The following actions may help to lessen any discomfort that you are feeling before or after getting dental care. Medicines ??? Take vfvd-fut-cilgogc and prescription medicines only as told by your dental care provider. ??? If you were prescribed an antibiotic medicine, take it as told by your dental care provider. Donot stop taking the antibiotic even if you start to feel better. Eating and drinking Avoid foods or drinks that cause you pain, such as: ??? Very hot or very cold foods or drinks. ??? Sweet or sugary foods or drinks. Managing pain and swelling ??? Ice can sometimes be used to reduce pain and swelling, especially if the pain is following dental treatment. ??? If directed, put ice on the painful area of your face. To do this: ??? Put ice in a plastic bag. ??? Place a towel between your skin and the bag. ??? Leave the ice on for 20 minutes, 2???3 times a day. ??? Remove the ice if your skin turns bright red. This is very important. If you cannot feel pain, heat, or cold, you have a greater risk of damage to the area. Brushing your teeth ??? To keep your mouth and gums healthy, brush your teeth twice a day using a fluoride toothpaste. ??? Use a toothpaste made for sensitive teeth as directed by your dental care provider, especially if the root is exposed. ??? Always brush your teeth with a soft-bristled toothbrush. This will help prevent irritation to your gums. General instructions ??? Floss at least once a day. ??? Do not apply heat to the outside of the face. ??? Gargle with a mixture of salt and water 3???4 times a day or as needed. To make salt water, completely dissolve ?1 tsp (3???6 g) of salt in 1 cup (237 mL) of warm water. ??? Keep all follow-up visits. This is important. Contact a dental care provider if: ??? You have any unexplained dental pain. ??? Your pain is not controlled with medicines. ??? Your symptoms get worse. ??? You have new symptoms. Get help right away if: ??? You are unable to open your mouth. ??? You are having trouble breathing or swallowing. ??? You have a fever. ??? You notice that your face, neck, or jaw is swollen. These symptoms may represent a serious problem that is an emergency. Do not wait to see if the symptoms will go away. Get medical help right away. Call your local emergency services (911 in the [place] Do not drive yourself to the hospital. Summary ??? Dental pain may be caused by many things, including tooth decay and infection. ??? Your pain may be mild or severe. ??? Take uzsa-ioa-ziqrbay and prescription medicines only as told by your dental care provider. ??? Watch your dental pain for any changes. Let your dental care provider know if your symptoms getworse. This information is not intended to replace advice given to you by your health care provider. Make sure you discuss any questions you have with your health care provider. Document Revised: 06/20/2021 Document Reviewed: 06/20/2021 [employer] Patient Education ?? 2021 [employer] Outpatient Summary note * Aneta Hargrove, CUTTER TENDER: PERFORM Event Display: Ambulatory Patient Summary Authored Date: [id number] ADAM TOMAS :1970 Age:52 years Sex:Female Visit Date:11/11/2022 Ambulatory Visit Instructions We would like to thank you for allowing us to assist you with your healthcare needs. The following includes patient education materials and information regarding your injury/illness. After you leave the office, you may get your health information including your test results, physician notes and discharge information by accessing your Patient Portal. If you do not have a patient portal account set up, please contact __. Your Next Steps Instructions From Your Care Team Use ibuprofen 600 mg every 6 hours, acetaminophen 650 mg??every 6 hours??as needed for pain, you may use ice or heat??for comfort. Contact [facility] [phone]. ??Seek urgent and or emergent care for any worsening or concerning symptoms such as fever, increased swelling, difficulty??with mastication or handling secretions. Medications What How Much When Why Instructions New penicillin V potassium (penicillin V potassium 500 mg oral tablet) 1 tab Oral (given by mouth) Every 8 hours Pain, dental Duration: 10 Days Pickup at [facility] Unchanged cetirizine (ZyrTEC 10 mg oral tablet) 1 tab Oral (given by mouth) Every day Unchanged clonazePAM (clonazePAM 0.5 mg oral tablet) TAKE 1 TABLET BY MOUTH TWICE DAILY NEEDED ?? Unchanged escitalopram (escitalopram 10 mg oral tablet) TAKE 1 TABLET BY MOUTH ONCE DAILY WITH A 20MG TABLET FOR A TOTAL DAILY DOSE OF 30MG ?? Unchanged escitalopram (escitalopram 20 mg oral tablet) TAKE 1 TABLET BY MOUTH ONCE DAILY WITH A 10MG TABLET ?? Unchanged esomeprazole (esomeprazole 40 mg oral delayed release capsule) TAKE 1 CAPSULE BY MOUTH ONCE DAILY ?? Unchanged levothyroxine (levothyroxine 75 mcg (0.075 mg) oral tablet) TAKE 1 TABLET BY MOUTH ONCE DAILY ?? Unchanged lisinopril (lisinopril 5 mg oral tablet) TAKE 1 TABLET BY MOUTH ONCE DAILY ?? Unchanged SUMAtriptan (SUMAtriptan 100 mg oral tablet) TAKE 1 TABLET BY MOUTH NEEDED FOR HEADACHE . MAY REPEAT 1 TIME IN 4 HOURS IF NEEDED. DO NOT TAKEMORE THAN 2 TABLETS IN A 24 HOUR PERIOD. ?? Unchanged zaleplon (zaleplon 10 mg oral capsule) TAKE 1 CAPSULE BY MOUTH ONCE DAILY AT NIGHT NEEDED FOR SLEEP ?? Pharmacy Information [facility]: [address] [place] [phone] Your Summary Your Diagnosis Pain, dental Your Care Team Attending Physician - Aneta Hargrove APRN Allergies predniSONE Education Materials Dental Pain Dental pain is often a sign that something is wrong with your teeth or gums. It is also something that can occur following dental treatment. If you have dental pain, it is important to contact your dental care provider, especially if the cause of the pain has not been determined. Dental pain may beof varying intensity and can be caused by many things, including: ? Tooth decay (cavities or caries). Cavities are caused by bacteria that produce acids that irritate the nerve of your tooth, making it sensitive to air and hot or cold temperatures. This eventually causes discomfort or pain. ? Abscess or infection. Once the bacteria reach the inner part of the tooth (pulp), a bacterial infection (dental abscess) can occur. Pus typically collects at the end of the root of a tooth. ? Injury. ? A crack in the tooth. ? Gum recession exposing the root, and possibly the nerves, of a tooth. ? Gum (periodontal)disease. ? Abnormal grinding or clenching. ? Poor or improper home care. ? An unknown reason (idiopathic). Your pain may be mild or severe. It may occur when you are: ? Chewing. ? Exposed to hot or cold temperatures. ? Eating or drinking sugary foods or beverages, such as soda or candy. Your pain may be constant, or it may come and go without cause. Follow these instructions at home: The following actions may help to lessen any discomfort that you are feeling before or after getting dental care. Medicines ? Take zsml-grq-jahphwo and prescription medicines only as told by your dental care provider. ? If you were prescribed an antibiotic medicine, take it as told by your dental care provider. Do notstop taking the antibiotic even if you start to feel better. Eating and drinking Avoid foods or drinks that cause you pain, such as: ? Very hot or very cold foods or drinks. ? Sweet or sugary foods or drinks. Managing pain and swelling ? Ice can sometimes be used to reduce pain and swelling, especially if the pain is following dental treatment. ? If directed, put ice on the painful area of your face. To do this: ? Put ice in a plastic bag. ? Place a towel between your skin and the bag. ? Leave the ice on for 20 minutes, 2???3 times a day. ? Remove the ice if your skin turns bright red. This is very important. If you cannot feel pain, heat, or cold, you have a greater risk of damage to the area. Brushing your teeth ? To keep your mouth and gums healthy, brush your teeth twice a day using a fluoride toothpaste. ? Use a toothpaste made for sensitive teeth as directed by your dental care provider, especially if the root is exposed. ? Always brush your teeth with a soft-bristled toothbrush. This will help prevent irritation to your gums. General instructions ? Floss at least once a day. ? Do not apply heat to the outside of the face. ? Gargle with a mixture of salt and water 3???4 times a day or as needed. To make salt water, completely dissolve ?1 tsp (3???6 g) of salt in 1 cup (237 mL) of warm water. ? Keep all follow-up visits. This is important. Contact a dental care provider if: ? You have any unexplained dental pain. ? Your pain is not controlled with medicines. ? Your symptoms get worse. ? You have new symptoms. Get help right away if: ? You are unable to open your mouth. ? You are having trouble breathing or swallowing. ? You have a fever. ? You notice that your face, neck, or jaw is swollen. These symptoms may represent a serious problem that is an emergency. Do not wait to see if the symptoms will go away. Get medical help right away. Call your local emergency services (911 in the [place] Do not drive yourself to the hospital. Summary ? Dental pain may be caused by many things, including tooth decay and infection. ? Your pain may be mild or severe. ? Take fqye-mgr-smrblli and prescription medicines only as told by your dental care provider. ? Watch your dental pain for any changes. Let your dental care provider know if your symptoms get worse. This information is not intended to replace advice given to you by your health care provider. Make sure you discuss any questions you have with your health care provider. Document Revised: 06/20/2021 Document Reviewed: 06/20/2021 [employer] Patient Education ?? 2021 [employer] Electronically Signed on: 11/11/2022 09:23 ESTSigned by:OMAR
--- OUTSIDE RECORDS SUMMARY | 2024-07-06 12:03 | XMS_ITS | Continuity of Care Document ---
Author Organization [facility] Address [address] [place] [id number] Care Team Providers Care Ortho Nurse Name Role Phone KESHIA GOLDBERG PA-C Primary Care Lamine dickson Encounter LTTL_[place] FIN NBR [id number] Date(s): 12/14/22 - 12/14/[address] [address]- Encounter Diagnosis Dental decay(Discharge Diagnosis) - 12/14/22 Pain due to dental caries(Discharge Diagnosis) - 12/14/22 Discharge Disposition: Home or Self Care Attending Physician: Saroj Jarrett MD Admitting Physician: Saroj Jarrett MD Allergies, Adverse Reactions, Alerts Substance Reaction Severity Status predniSONE Severe Active Functional Status 12/14/22 Family Member Travel History No recent t ravel Recent Travel History No recent travel Other exposure to Infectious Disease Non e [...] 0 Refill(s) Start Date: 11/11/22 Status: Ordered Mental Status 12/14/22 Eye Opening Response [place]ix[place] Spontaneous ly Best Verbal Response [place] Oriented Best Motor Response Aixa Obeys comman ds Aixa Coma Score 15 Problem List Condition Confirmation Course Effective Dates Status Health St atus Informant Dental decay Confirmed Active Pain due to dental caries Confirmed Active Vomiting Confirmed Active Results Laboratory List Name Date .Morphology (LTTL) 12/14/22 Basic Metabolic Panel (BMP) 12/14/22 CBC w/ Diff 12/14/22 Automated Diff 12/14/22 Most recent to oldest [Reference Range]: 1 WBC [4.8-10.8 K/mcL] 5.1 K/mcL (12/14/22 12:59 PM) RBC [4.20-5.40 Million/mcL] 3.74 Million /mcL *LOW* (12/14/22 12:59 PM) Neutro Auto [42.2-75.2 %] 62.9 % (12/14/22 12:59 PM) Lymph Auto [20.5-51.1 %] 25.7 % (12/14/22 12:59 PM) Cotton Auto [1.7-9.3 %] 7.8 % (12/14/22 12:59 PM) Basophil Auto [0.0-0.8 %] 1.8 % *HI* (12/14/22 12:59 PM) BUN [8-26 mg/dL] 16 mg/dL (12/14/22 12:59 PM) Glucose Level [74-106 mg/dL] 101 mg/dL (12/14/22 12:59 PM) Potassium Level [3.5-5.1 mmol/L] 4.2 mmo l/L (12/14/22 12:59 PM) Baso Absolute [0.0-0.2 K/mcL] 0.1 K/mcL (12/14/22 12:59 PM) MCV [81.0-99.0 fL] 86.9 fL (12/14/22 12:59 PM) RBC Morph [Normal] Abnormal *ABN* (12/14/22 12:59 PM) MCHC [32.0-36.0 g/dL] 30.8 g/dL *LOW* (12/14/22 12:59 PM) Osmolality [275-295 mOsm/kg] 271 mOsm/kg *LOW* (12/14/22: PM) Sodium Level [134-143 mmol/L] 135 mmol/L (12/14/22 12:59 PM) Lymph Absolute [1.2-3.4 K/mcL] 1.3 K/mcL (12/14/22 12:59 PM) Hct [37.0-47.0 %] 32.5 % *LOW* (12/14/22 12:59 PM) Hypochromia 1+ *ABN* (12/14/22 12:59 PM) Calcium Level [8.9-10.3 mg/dL] 10.3 mg/d L (12/14/22 12:59 PM) Cotton Absolute [0.1-0.6 K/mcL] 0.4 K/mcL (12/14/22 12:59 PM) MCH [27.0-31.0 pg] 26.7 pg *LOW* (12/14/22 12:59 PM) Neutro Absolute [1.4-6.5 K/mcL] 3.2 K/mc L (12/14/22 12:59 PM) Hgb [12.0-16.0 g/dL] 10.0 g/dL *LOW* (12/14/22 12:59 PM) MPV [7.4-10.4 fL] 9.7 fL (12/14/22 12:59 PM) Platelets [130-400 K/mcL] 296 K/mcL (12/14/22 12:59 PM) CO2 [22-32 mmol/L] 25 mmol/L (12/14/22 12:59 PM) Eos Absolute [0.0-0.2 K/mcL] 0.1 K/mcL (12/14/22 12:59 PM) Chloride Level [98-111 mmol/L] 103 mmol/ L (12/14/22 12:59 PM) RDW-CV [11.5-14.5 %] 14.8 % *HI* (12/14/22 12:59 PM) BUN/Creat Ratio [8.0-20.0] 18.6 (12/14/22 12:59 PM) Imm Gran Absolute 0.01 *NA* (12/14/22 12:59 PM) Imm Gran Auto [0.0-0.5 %] 0.2 % (12/14/22 12:59 PM) NRBC Auto 0 *NA* (12/14/22 12:59 PM) NRBC Absolute 0 *NA* (12/14/22 12:59 PM) Anisocyte 1+ (12/14/22 12:59 PM) Creatinine Level [0.44-1.00 mg/dL] 0.86 mg/dL (12/14/22 12:59 PM) Plt Estimation Normal (12/14/22 12:59 PM) Anion Gap [3.0-12.0] 7.0 (12/14/22 12:59 PM) Eos, Auto [0.00-3.00 %] 1.60 % (12/14/22 12:59 PM) eGFR CKD-EPI [>=60 mL/min/1.73 m2] 81 mL /min/1.73 m2 (12/14/22 12:59 PM) Vital Signs Most recent to oldest [Reference Range]: 1 Temperature Tympanic [36.6-37.9 Deg C] 3 6.6 Deg C (12/14/22 12:22 PM) Peripheral Pulse Rate [60-100 bpm] 70 bp m (12/14/22 12: PM) Respiratory Rate [12-24 br/min] 16 br/mi n (12/14/22 12:22 PM) Blood Pressure [90-140/60-90 mmHg] 138/7 9mmHg (12/14/22 12:22 PM) Weight 67.13 kg (12/14/22 12:22 PM) Weight Dosing 67.13 kg (12/14/22 12:46 PM) Height 162.560 cm (12/14/22 12:22 PM) Height/Length Dosing 162.560 cm (12/14/22 12:46 PM) Body Mass Index 25.000 kg/m2 (12/14/22 12:22 PM) Social History Social History Type Response Tobacco Never tobacco user T obacco Use:. Sex Hospital Discharge Instructions Patient Education 12/14/2022 12:44:43 Dental Caries, Adult, [id number] Dental Caries, Adult Dental caries are spots of decay (cavities) in teeth. They are in the outer layer of your tooth (enamel). Treat them as soon as you can. If they are not treated, they can spread decay and lead to painful infection. What are the causes? This condition is caused by acid that is produced when bacteria in your mouth break down sugary foods and liquids. What increases the risk? This condition is more likely to develop in people who: ??? Drink a lot of sugary liquids. ??? Eat a lot of sweets and carbohydrates. ??? Drink water that does not have fluoride. ??? Do not clean their teeth regularly. ??? Take medicines that decrease saliva. What are the signs or symptoms? Symptoms of this condition include: ??? White, brown, or black spots on the teeth. ??? Pain as the decay goes deeper into the tooth. ??? Swelling or bleeding in the gums. How is this treated? This condition is treated with a procedure to remove decay and to restore the tooth. Follow these instructions at home: ??? Take good care of your mouth and teeth. This keeps them healthy. ??? Surprise your teeth 2 times a day. Use toothpaste with fluoride in it. ??? Floss your teeth once a day. ??? If your dentist prescribed an antibiotic medicine, take it as told. Do not stop taking the antibiotic even if your condition gets better. ??? Keep all follow-up visits as told by your dentist. This is important. This includes all cleanings. How is this prevented? To prevent dental caries: ??? Surprise your teeth every morning and night. Use fluoride toothpaste. ??? Floss your teeth once a day. ??? Get regular dental cleanings. ??? If told by your dentist: ??? Wash your mouth with prescription mouthwash (chlorhexidine). ??? Put topical fluoride on your teeth. ??? Drink water with fluoride in it. ??? Drink water instead of sugary drinks. ??? Eat healthy meals and snacks. ??? Have fluoride treatments in the dentist's office and sealants put on your teeth, if told by your dentist. Contact a doctor if: ??? You have symptoms of tooth decay. Summary ??? Dental caries are spots of decay (cavities) in teeth. It is important to treat this as soon as you see them. ??? This condition is caused by an acid that comes when sugar breaks down in your mouth. ??? To prevent this condition, brush your teeth often and have regular dental cleanings. ??? Take an antibiotic to treat an infection, if told by your dentist. Do not stop taking the antibiotic even if your condition gets better. ??? Have regular dental cleanings and keep all follow-up visits. This information is not intended to replace advice given to you by your health care provider. Make sure you discuss any questions you have with your health care provider. Document Revised: 09/01/2020 Document Reviewed: 09/01/2020 [employer] Patient Education ?? 2021 [employer] Follow Up Care 12/14/2022 12:22:38 With:Oral surgeon Address: When:12/18/2022 Comments:Keep scheduled appointment, return here sooner for new or worsening symptoms Physician Emergency department Note * Lona Rubi CROZER: PERFORM Event Display: ED Note Physician Authored Date: [id number] ADAM TOMAS :1970 Age:52 years Sex:Female Visit Date:12/14/2022 Primary Care Physician: KESHIA GOLDBERG PA-C Basic Information Time Seen: Lona Rubi CROZER / 12/14/2022 12:25 Chief Complaint schedued for teeth extraction this , last week . presents , c/o dental pain 01/06 , teeth #3 & # 32 , chills - not feeling welll History Of Present Illness: This is a 52-year-old female patient with no significant past medical history who??started with right lower??dental pain??approximately 1 month ago. ??She was treated with a course of penicillin??thesymptoms improved slightly but persisted??she was reseen and placed on clindamycin. ??In the meantime she??saw her dentist who recommended a dental extraction.?? She is scheduled that but was??unableto??come up with the money upfront as they would not take her insurance. ??She needed to cancel that appointment and has since rescheduled??and is??waiting for her appointment which is coming up.?? She has not had fever redness or increased swelling. ??She reports she just is not feeling well??and was concerned that maybe she??needed an??antibiotic for ongoing??dental infection. ??She has been eating and drinking.?? Has been using APAP for pain Review of Systems: Reviewed and??as outlined in HPI Physical Exam Vitals & Measurements T:??36.6?C ??(Tympanic)?? HR:??70??(Peripheral)?? RR:??16?? BP:??138/79?? SpO2:??100%?? HT:??162.560??cm?? WT:??67.13??kg?? BMI:??25.000?? Pain Score:??4?? Well-appearing??female of stated age??in??mild distress.?? Head??is atraumatic??oromucosa is moist??she has severe dental decay??to #31.?? There is no palpable??abscess??there is no erythema or swelling.?? Cardiovascular regular rate and rhythm??neck is supple there is no anterior??or submandibular lymphadenopathy. Medical Decision Makin-year-old female patient with??dental??decay needing??an extraction is scheduled for an appointment with an oral surgeon.?? She has not had fevers redness or apparent swelling. ??She was recently treated with a 10-day course of penicillin and then a 10-day course of clindamycin.?? She has not had??any evidence of??systemic infection. ??She states she just has not been feeling well and??I will order CBC and basic metabolic panel which??showed no elevated white count or electrolyte abnormalities.?? We did discuss pain management with APAP??heat??and ice??which she is willing to??try.?? I do not feel she needs another course of antibiotics at this time??as I do not feel this is untreated??infection.?? She was advised to monitor for??fever swelling redness increasing pain??and to return to the emergency department should she develop any of those symptoms Procedure No Qualifying Data Assessment/Plan 1.??Dental decay??K02.9,?? Keep scheduled appointment with oral surgeon??and continue using conservative symptom management Pain due to dental caries??K02.9 Patient Discharge Condition stable Discharge Disposition home with no services. Patient Education Dental Caries, Adult, [id number] Follow Up With When Contact Information Oral surgeon In 5 days 12/19/2022 EDT Additional Instructions: Keep scheduled appointment, return here sooner for new or worsening symptoms Medication Reconciliation Unchanged cetirizine (ZyrTEC 10 mg oral tablet)1 tab Oral (given by mouth) every day. ?? clonazePAM (clonazePAM 0.5 mg oral tablet)TAKE 1 TABLET BY MOUTH TWICE DAILY NEEDED. ?? escitalopram (escitalopram 10 mg oral tablet)TAKE 1 TABLET BY MOUTH ONCE DAILY WITH A 20MG TABLET FOR A TOTAL DAILY DOSE OF 30MG. ?? escitalopram (escitalopram 20 mg oral tablet)TAKE 1 TABLET BY MOUTH ONCE DAILY WITH A 10MG TABLET. ?? esomeprazole (esomeprazole 40 mg oral delayed release capsule)TAKE 1 CAPSULE BY MOUTH ONCE DAILY. ?? levothyroxine (levothyroxine 75 mcg (0.075 mg) oral tablet)TAKE 1 TABLET BY MOUTH ONCE DAILY. ?? lisinopril (lisinopril 5 mg oral tablet)TAKE 1 TABLET BY MOUTH ONCE DAILY. ?? penicillin V potassium (penicillin V potassium 500 mg oral tablet)1 tab Oral (given by mouth) every8 hours for 10 Days. Refills: 0. ?? SUMAtriptan (SUMAtriptan 100 mg oral tablet)TAKE 1 TABLET BY MOUTH NEEDED FOR HEADACHE . MAY REPEAT 1 TIME IN 4 HOURS IF NEEDED. DO NOT TAKE MORE THAN 2 TABLETS IN A 24 HOUR PERIOD.. ?? zaleplon (zaleplon 10 mg oral capsule)TAKE 1 CAPSULE BY MOUTH ONCE DAILY AT NIGHT NEEDED FOR SLEEP. Problem List/Past Medical History Ongoing Dental decay Pain due to dental caries Vomiting Historical No qualifying data Allergies predniSONE Social History Electronic Cigarette/Vaping Electronic Cigarette Use: Never. Tobacco Never tobacco user Tobacco Use:. Lab Results CBC and Differential?? LATEST RESULTS?? HISTORICAL RESULTS?? WBC?? 12/14/22 12:59?? 5.1?? 12/02/22?? 7.6?? RBC?? 12/14/22 12:59?? 3.74 ??Low?? 12/02/22?? 3.71 ??Low?? Hgb?? 12/14/22 12:59?? 10.0 ??Low?? 12/02/22?? 9.8 ??Low?? Hct?? 12/14/22 12:59?? 32.5 ??Low?? 12/02/22?? 32.1 ??Low?? MCV?? 12/14/22 12:59?? 86.9?? 12/02/22?? 86.5?? MCH?? 12/14/22 12:59?? 26.7 ??Low?? 12/02/22?? 26.4 ??Low?? MCHC?? 12/14/22 12:59?? 30.8 ??Low?? 12/02/22?? 30.5 ??Low?? RDW-CV?? 12/14/22 12:59?? 14.8 ??High?? 12/02/22?? 15.0 ??High?? Platelets?? 12/14/22 12:59?? 296?? 12/02/22?? 348?? MPV?? 12/14/22 12:59?? 9.7?? 12/02/22?? 9.9?? Neutro Auto?? 12/14/22 12:59?? 62.9?? 12/02/22?? 73.2?? Lymph Auto?? 12/14/22 12:59?? 25.7?? 12/02/22?? 17.7 ??Low?? Cotton Auto?? 12/14/22 12:59?? 7.8?? 12/02/22?? 6.3?? Eos, Auto?? 12/14/22 12:59?? 1.60?? 12/02/22?? 1.40?? Basophil Auto?? 12/14/22 12:59?? 1.8 ??High?? 12/02/22?? 1.0 ??High?? Imm Gran Auto?? 12/14/22 12:59?? 0.2?? 12/02/22?? 0.4?? NRBC Auto?? 12/14/22 12:59?? 0? Neutro Absolute?? 12/14/22 12:59?? 3.2?? 12/02/22?? 5.6?? Lymph Absolute?? 12/14/22 12:59?? 1.3?? 12/02/22?? 1.4?? Cotton Absolute?? 12/14/22 12:59?? 0.4?? 12/02/22?? 0.5?? Eos Absolute?? 12/14/22 12:59?? 0.1?? 12/02/22?? 0.1?? Baso Absolute?? 12/14/22 12:59?? 0.1?? 12/02/22?? 0.1?? Imm Gran Absolute?? 12/14/22 12:59?? 0.01?? 12/02/22?? 0.03?? NRBC Absolute?? 12/14/22 12:59?? 0? RBC Morph?? 12/14/22 12:59?? Abnormal Abnormal?? 12/02/22?? Abnormal Abnormal?? Anisocyte?? 12/14/22 12:59?? 1+? Hypochromia?? 12/14/22 12:59?? 1+ Abnormal?? 12/02/22?? 1+ Abnormal?? Plt Estimation?? 12/14/22 12:59?? Normal?? 12/02/22?? Normal? Routine Chemistry?? LATEST RESULTS?? HISTORICAL RESULTS?? Sodium Level?? 12/14/22 12:59?? 135?? 12/02/22?? 136?? Potassium Level?? 03/18/23 12:59?? 4.2?? 12/02/22?? 3.5?? Chloride Level?? 12/14/22 12:59?? 103?? 12/02/22?? 99?? CO2?? 12/14/22 12:59?? 25?? 12/02/22?? 27?? BUN?? 12/14/22 12:59?? 16?? 12/02/22?? 13?? Glucose Level?? 12/14/22 12:59?? 101?? 12/02/22?? 97?? Creatinine Level?? 12/14/22 12:59?? 0.86?? 12/02/22?? 0.63?? BUN/Creat Ratio?? 12/14/22 12:59?? 18.6?? 12/02/22?? 20.6 ??High?? Calcium Level?? 12/14/22 12:59?? 10.3?? 12/02/22?? 10.6 ??High?? Anion Gap?? 12/14/22 12:59?? 7.0?? 12/02/22?? 10.0?? Osmolality?? 12/14/22 12:59?? 271 ??Low?? 12/02/22?? 272 ??Low?? eGFR CKD-EPI?? 12/14/22 12:59?? 81?? 12/02/22?? 106? Electronically Signed on 12/14/22 01:48 PM Lona Rubi CROZER Emergency department Discharge instructions * Lona Rubi CROZER: PERFORM Event Display: ED Discharge Information Authored Date: [id number] ADAM TOMAS :1970 Age:52 years Sex:Female Visit Date:12/14/2022 Primary Care Physician: ASHLYN MATSON, KESHIA STONE Discharge Instructions We would like to thank you for allowing us to assist you with your healthcare needs. The following includes patient education materials and information regarding your injury/illness. Diagnosis from Today's Visit Dental decay Pain due to dental caries Discharge Vitals Temperature??(Tympanic) 97.9 ??F (36.6 ??C) Heart Rate??(Peripheral) 70 Respiratory Rate?? 16 Blood Pressure?? 138/79?? Height?? 64.00 in (162.560 cm) Weight?? 148.02 lb (67.13 kg) BMI?? 25.000 Allergies predniSONE What to Do Next Instructions from Your Care Team Use heat or ice to affected area Continue??acetaminophen as directed And try [id number] Orajel??or topical numbing medication You Need to Schedule the Following Appointments Follow Up with??Oral surgeon When:??In 5 days 12/19/2022 EDT Why: Keep scheduled appointment, return here sooner for new or worsening symptoms You were treated today on an emergency basis; it may be guzmán to contact your primary care provider to notify them of your visit today. You may have been referred to your regular doctor or a specialist, please follow up as instructed. If your condition worsens or you can't get in to see the doctor, contact the Emergency Department. Medications What How Much When Why Instructions Next Dose Unchanged cetirizine (ZyrTEC 10 mg oral tablet) [...] TABLET BY MOUTH ONCE DAILY ?? Unchanged penicillin V potassium (penicillin V potassium 500 mg oral tablet) 1 tab Oral (given by mouth) Every 8 hours Pain, dental Duration: 10 Days Unchanged SUMAtriptan (SUMAtriptan 100 mg oral tablet) TAKE 1 TABLET BY MOUTH NEEDED FOR HEADACHE . MAY REPEAT 1 TIME IN 4 HOURS IF NEEDED. DO NOT TAKEMORE THAN 2 TABLETS IN A 24 HOUR PERIOD. ?? Unchanged zaleplon (zaleplon 10 mg oral capsule) TAKE 1 CAPSULE BY MOUTH ONCE DAILY AT NIGHT NEEDED FOR SLEEP ?? Education Materials Dental Caries, Adult Dental caries are spots of decay (cavities) in teeth. They are in the outer layer of your tooth (enamel). Treat them as soon as you can. If they are not treated, they can spread decay and lead to painful infection. What are the causes? This condition is caused by acid that is produced when bacteria in your mouth break down sugary foods and liquids. What increases the risk? This condition is more likely to develop in people who: ? Drink a lot of sugary liquids. ? Eat a lot of sweets and carbohydrates. ? Drink water that does not have fluoride. ? Do not clean their teeth regularly. ? Take medicines that decrease saliva. What are the signs or symptoms? Symptoms of this condition include: ? White, brown, or black spots on the teeth. ? Pain as the decay goes deeper into the tooth. ? Swelling or bleeding in the gums. How is this treated? This condition is treated with a procedure to remove decay and to restore the tooth. Follow these instructions at home: ? Take good care of your mouth and teeth. This keeps them healthy. ? Surprise your teeth 2 times a day. Use toothpaste with fluoride in it. ? Floss your teeth once a day. ? If your dentist prescribed an antibiotic medicine, take it as told. Do not stop taking the antibiotic even if your condition gets better. ? Keep all follow-up visits as told by your dentist. This is important. This includes all cleanings. How is this prevented? To prevent dental caries: ? Surprise your teeth every morning and night. Use fluoride toothpaste. ? Floss your teeth once a day. ? Get regular dental cleanings. ? If told by your dentist: ? Wash your mouth with prescription mouthwash (chlorhexidine). ? Put topical fluoride on your teeth. ? Drink water with fluoride in it. ? Drink water instead of sugary drinks. ? Eat healthy meals and snacks. ? Have fluoride treatments in the dentist's office and sealants put on your teeth, if told by your dentist. Contact a doctor if: ? You have symptoms of tooth decay. Summary ? Dental caries are spots of decay (cavities) in teeth. It is important to treat this as soon as you see them. ? This condition is caused by an acid that comes when sugar breaks down in your mouth. ? To prevent this condition, brush your teeth often and have regular dental cleanings. ? Take an antibiotic to treat an infection, if told by your dentist. Do not stop taking the antibiotic even if your condition gets better. ? Have regular dental cleanings and keep all follow-up visits. This information is not intended to replace advice given to you by your health care provider. Make sure you discuss any questions you have with your health care provider. Document Revised: 09/01/2020 Document Reviewed: 09/01/2020 [employer] Patient Education ?? 2021 [employer]. Tests Performed Lab Test Name Test Result Date/Time WBC 5.1 K/mcL 12/14/2022 12:59 EDT RBC 3.74 Million/mcL 12/14/2022 12:59 EDT Hgb 10.0 g/dL 12/14/2022 12:59 EDT Hct 32.5 % 12/14/2022 12:59 EDT MCV 86.9 fL 12/14/2022 12:59 EDT MCH 26.7 pg 12/14/2022 12:59 EDT MCHC 30.8 g/dL 12/14/2022 12:59 EDT RDW-CV 14.8 % 12/14/2022 12:59 EDT Platelets 296 K/mcL 12/14/2022 12:59 EDT MPV 9.7 fL 12/14/2022 12:59 EDT Neutro Auto 62.9 % 12/14/2022 12:59 EDT Lymph Auto 25.7 % 12/14/2022 12:59 EDT Cotton Auto 7.8 % 12/14/2022 12:59 EDT Eos, Auto 1.60 % 12/14/2022 12:59 EDT Basophil Auto 1.8 % 12/14/2022 12:59 EDT Imm Gran Auto 0.2 % 12/14/2022 12:59 EDT NRBC Auto 0 12/14/2022 12:59 EDT Neutro Absolute 3.2 K/mcL 12/14/2022 12:59 EDT Lymph Absolute 1.3 K/mcL 12/14/2022 12:59 EDT Cotton Absolute 0.4 K/mcL 12/14/2022 12:59 EDT Eos Absolute 0.1 K/mcL 12/14/2022 12:59 EDT Baso Absolute 0.1 K/mcL 12/14/2022 12:59 EDT Imm Gran Absolute 0.01 12/14/2022 12:59 EDT NRBC Absolute 0 12/14/2022 12:59 EDT RBC Morph Abnormal 12/14/2022 12:59 EDT Anisocyte 1+ 12/14/2022 12:59 EDT Hypochromia 1+ 12/14/2022 12:59 EDT Plt Estimation Normal 12/14/2022 12:59 EDT Sodium Level 135 mmol/L 12/14/2022 12:59 EDT Potassium Level 4.2 mmol/L 12/14/2022 12:59 EDT Chloride Level 103 mmol/L 12/14/2022 12:59 EDT CO2 25 mmol/L 12/14/2022 12:59 EDT BUN 16 mg/dL 12/14/2022 12:59 EDT Glucose Level 101 mg/dL 12/14/2022 12:59 EDT Creatinine Level 0.86 mg/dL 12/14/2022 12:59 EDT BUN/Creat Ratio 18.6 12/14/2022 12:59 EDT Calcium Level 10.3 mg/dL 12/14/2022 12:59 EDT Anion Gap 7.0 12/14/2022 12:59 EDT Osmolality 271 mOsm/kg 12/14/2022 12:59 EDT eGFR CKD-EPI 81 mL/min/1.73 m2 12/14/2022 12:59 EDT Patient/Business Teacher Signature Patient Name:ADAM TOMAS I have received this information and my questions have been answered. Patient/Business Teacher Name: Patient/Business Teacher Signature: Relationship to Patient: Witness Name/Signature: Date: Electronically Signed on: 12/14/2022 13:46 EDTSigned by:[facility] Patient Care team information Care Team Personnel Name: KESHIA GOLDBERG PA-C Position: No Access Member Role: Primary Care Physician Address: Address: [address] [id number] Name: Magy Cash Position: Nurse Member Role: ED Nurse Name: Lona Rubi APRN Position: Physician Member Role: Nurse Practitioner Address: Address: [address] [place] [phone] [place] Care Team Related Persons Name: ZAHIRA SANTILLAN
--- OUTSIDE RECORDS SUMMARY | 2024-07-06 12:03 | XMS_ITS | Continuity of Care Document ---
Author Organization [facility] Address [address] [place] [address] Care Team Providers Care Lens Finisher Name Role Phone KESHIA GOLDBERG PA-C Primary Care Lamine dickson Encounter [facility] NBR [id number] Date(s): 05/03/24 - 05/03/24 [facility] [address] [place] [address]- Encounter Diagnosis Low back pain without sciatica(Discharge Diagnosis) - 05/03/24 Discharge Disposition: Home or Self Care Attending Physician: Aneta Hargrove APRN Allergies, Adverse Reactions, Alerts Substance Reaction Severity Status predniSONE Severe Active Assessment and Plan Extracted from: Title:Office Visit Note Author:Edis Millan PRAtilio Date:05/03/24 1.??Low back pain without sc iatica??M54.50 Ordered: Medrol Dosepak 4 mg oral tablet, 1 packets, Oral, Daily, as directed on package labeling, # 21 tab, 0 Refill(s), Pharmacy: [id number], 162.56, cm, 05/03/24 14:07:00 EDT, Height, 69.13, kg, 05/03/24 14:13:00 EDT, Weight Dosing ?? Medications Lesley 24 Hour Allergy oral tablet 0 Refill(s) Start Date: 05/03/24 Status: Ordered clonazePAM 0.5 mg oral tablet TAKE 1 [...] 10MG TABLET Start Date: 11/11/22 Status: Ordered levothyroxine 75 mcg (0.075 mg) oral tablet TAKE 1 TABLET BY MOUTH ONCE DAILY Start Date: 11/11/22 Status: Ordered lisinopril 5 mg oral tablet TAKE 1 TABLET BY MOUTH ONCE DAILY Start Date: 11/11/22 Status: Ordered Medrol Dosepak 4 mg oral tablet 1 packets, Oral, Daily, as directed on package labeling, # 21 tab, 0 Refill(s), Pharmacy: [id number], 162.56, cm, 05/03/24 14:07:00 EDT, Height, 69.13, kg, 05/03/24 14:13:00 EDT, Weight Dosing Start Date: 05/03/24 Stop Date: 05/09/24 Status: Ordered pantoprazole 40 mg oral delayed release tablet 0 Refill(s) Start Date: 05/03/24 Status: Ordered penicillin V potassium 500 mg oral tablet 500 mg = 1 tab, Oral, every 8 hr, # 30 tab, 0 Refill(s), Pharmacy: [facility] Start Date: 11/11/22 Stop Date: [...] FOR SLEEP Start Date: 11/11/22 Status: Ordered Problem List Condition Confirmation Course Effective Dates Status Health St atus Informant Dental decay Confirmed Active Pain due to dental caries Confirmed Active Vomiting Confirmed Active Results Laboratory List Name Date .Urinalysis POCT 05/03/24 Most recent to oldest [Reference Range]: 1 Method of Collect POC cc *NA* (05/03/24 2:13 PM) Specific [place], Ur POC 1.025 *NA* (05/03/24 2:13 PM) Specimen Color POC [Yellow] Yellow (05/03/24 2:13 PM) Glucose, Urine POC Negative mg/dL *NA* (05/03/24 2:13 PM) Bilirubin, Urine POC [Negative] Negative (05/03/24 2:13 PM) Ketones, Urine POC [Negative mg/dL] Nega tive mg/dL (05/03/24 2:13 PM) Blood, Urine POC [Negative] Negative (05/03/24 2:13 PM) pH, Urine POC 6.00 *NA* (05/03/24 2:13 PM) Protein, Urine POC [Negative mg/dL] Nega tive mg/dL (05/03/24 2:13 PM) Urobilinogen, Urine POC [0.2] 0.2 (05/03/24 2:13 PM) Nitrite, Urine POC [Negative] Negative (05/03/24 2:13 PM) Leuk Esterase, Urine POC [Negative] Nega tive (05/03/24 2:13 PM) Clarity, Urine POC [Clear] Clear (05/03/24 2:13 PM) Vital Signs Most recent to oldest [Reference Range]: 1 Temperature Oral [35.8-37.3 Deg C] 35.6 Deg C *LOW* (05/03/24 2:07 PM) Peripheral Pulse Rate [60-100 bpm] 61 bp m (05/03/24 2:07 PM) Blood Pressure [90-140/60-90 mmHg] 153/7 0mmHg *HI* (05/03/24 2:07 PM) Mean Arterial Pressure, Cuff [65-140 mmH g] 98 mmHg (05/03/24 2:07 PM) Weight 69.13 kg (05/03/24 2:07 PM) Weight Measured (lbs) 152.405 lb (05/03/24 2:07 PM) Weight Dosing 69.130 kg (05/03/24 2:07 PM) Height 162.56 cm (05/03/24 2:07 PM) Height/Length Measured (inches) 64 inch (05/03/24 2:07 PM) BSA Measured 1.77 m2 (05/03/24 2:07 PM) Body Mass Index 26.16 kg/m2 (05/03/24 2:07 PM) Social History Social History Type Response Tobacco Never tobacco user T obacco Use:. Sex Hospital Discharge Instructions Patient Education 05/03/2024 13:35:34 Acute Back Pain, Adult Acute Back Pain, Adult Acute back pain is sudden and usually short-lived. It is often caused by an injury to the muscles and tissues in the back. The injury may result from: ??? A muscle, tendon, or ligament getting overstretched or torn. Ligaments are tissues that connectbones to each other. Lifting something improperly can cause a back strain. ??? Wear and tear (degeneration) of the spinal disks. Spinal disks are circular tissue that providecushioning between the bones of the spine (vertebrae). ??? Twisting motions, such as while playing sports or doing yard work. ??? A hit to the back. ??? Arthritis. You may have a physical exam, lab tests, and imaging tests to find the cause of your pain. Acute back pain usually goes away with rest and home care. Follow these instructions at home: Managing pain, stiffness, and swelling ??? Take zflg-fit-zqotvao and prescription medicines only as told by your health care provider. Treatment may include medicines for pain and inflammation that are taken by mouth or applied to the skin, or muscle relaxants. ??? Your health care provider may recommend applying ice during the first 24???48 hours after your pain starts. To do this: ??? Put ice in [...] greater risk of damage to the area. ??? If directed, apply heat to the affected area as often as told by your health care provider. Usethe heat source that your health care provider recommends, such as a moist heat pack or a heating pad. ??? Place a towel between your skin and the heat source. ??? Leave the heat on for 20???30 minutes. ??? Remove the heat if your skin turns bright red. This is especially important if you are unable to feel pain, heat, or cold. You have a greater risk of getting burned. Activity ??? Do not stay in bed. Staying in bed for more than 1???2 days can delay your recovery. ??? Sit up and stand up straight. Avoid leaning forward when you sit or hunching over when you stand. ??? If you work at a desk, sit close to it so you do not need to lean over. Keep your chin tucked in. Keep your neck drawn back, and keep your elbows bent at a 90-degree angle (right angle). ??? Sit high and close to the steering wheel when you drive. Add lower back (lumbar) support to your car seat, if needed. ??? Take short walks on even surfaces as soon as you are able. Try to increase the length of time you walk each day. ??? Do not sit, drive, or clearance coordinator one place for more than 30 minutes at a time. Sitting or standing for long periods of time can put stress on your back. ??? Do not drive or use heavy machinery while taking prescription pain medicine. ??? Use proper lifting techniques. When you bend and lift, use positions that put less stress on your back: ??? Bend your knees. ??? Keep the load close to your body. ??? Avoid twisting. ??? Exercise regularly as told by your health care provider. Exercising helps your back heal fasterand helps prevent back injuries by keeping muscles strong and flexible. ??? Work with a physical therapist to make a safe exercise program, as recommended by your health care provider. Do any exercises as told by your physical therapist. Lifestyle ??? Maintain a healthy weight. Extra weight puts stress on your back and makes it difficult to havegood posture. ??? Avoid activities or situations that make you feel anxious or stressed. Stress and anxiety increase muscle tension and can make back pain worse. Learn ways to manage anxiety and stress, such as through exercise. General instructions ??? Sleep on a firm mattress in a comfortable position. Try lying on your side with your knees slightly bent. If you lie on your back, put a pillow under your knees. ??? Keep your head and neck in a straight line with your spine (neutral position) when using electronic equipment like smartphones or pads. To do this: ??? Raise your smartphone or pad to look at it instead of bending your head or neck to look down. ??? Put the smartphone or pad at the level of your face while looking at the screen. ??? Follow your treatment plan as told by your health care provider. This may include: ??? Cognitive or behavioral therapy. ??? Acupuncture or massage therapy. ??? Meditation or yoga. Contact a health care provider if: ??? You have pain that is not relieved with rest or medicine. ??? You have increasing pain going down into your legs or buttocks. ??? Your pain does not improve after 2 weeks. ??? You have pain at night. ??? You lose weight without trying. ??? You have a fever or chills. ??? You develop nausea or vomiting. ??? You develop abdominal pain. Get help right away if: ??? You develop new bowel or bladder control problems. ??? You have unusual weakness or numbness in your arms or legs. ??? You feel faint. These symptoms may represent a serious problem that is an emergency. Do not wait to see if the symptoms will go away. Get medical help right away. Call your local emergency services (911 in the [place] Do not drive yourself to the hospital. Summary ??? Acute back pain is sudden and usually short-lived. ??? Use proper lifting techniques. When you bend and lift, use positions that put less stress on your back. ??? Take kukb-urr-qydytqb and prescription medicines only as told by your health care provider, andapply heat or ice as told. This information is not intended to replace advice given to you by your health care provider. Make sure you discuss any questions you have with your health care provider. Document Revised: 12/07/2021 Document Reviewed: 12/07/2021 [employer] Patient Education ?? 2022 [employer] 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 ??She states that??she has been experiencing??intermittent low back pain, states that it was progressively worse over the weekend. ??She denies any numbness or tingling of her lower extremities, no changes in bowel or bladder function, no saddle anesthesia. ??Pain does not radiate. ??She states that she has been experiencing low back pain, had an MRI??in February??at another hospital, states that no one has reviewed the readings with her.?? Appointment with her primary care at the end of the week Review of Systems see hpi Physical Exam Vitals & Measurements T:??35.6?C ??(Oral)?? HR:??61??(Peripheral)?? BP:??153/70?? SpO2:??100%?? HT:??162.56??cm?? WT:??69.13??kg?? BMI:??26.16?? Pain Score:??8?? BSA:??1.77?? Skin: No concerning lesions in examined areas. Head: Normal cephalic without trauma or injury. Neck: Supple, nontender, normal range of motion Eye: Pupils reactive. ??Conjunctiva clear. Sclera nonicteric. ??No swelling, obvious foreign bodies. ??Extraocular movement intact. Cardiovascular: Regular rate and rhythm. ??No murmur, rubs, or gallops. Respiratory: Clear to auscultation bilaterally. ??No wheezes, rales, rhonchi. Chest: No deformity. ??Nontender, normal inspiration and expiration. Abdomen: Soft, nontender. ??No peritoneal signs, rigidity, guarding. ??No CVA tenderness. Musculoskeletal: Normal range of motion the large joints without joint swelling. ??Gait normal. Tenderness and muscle spasticity on the??lower bilateral lumbar/paraspinals. +DTR, +CSM Medical Decision Making: Patient was evaluated for low back pain,??she does have low back tenderness, no radiculopathy. ??Urinalysis obtained negative for infection she shows me??a snapshot of her MRI??back in February??which does??state a??small bulge??disc at L5- S1.?Discussed starting steroids to decrease inflammation??and hope to improve pain symptoms. ??I did??state that this is symptom management only and that she would need to keep her scheduled appointment??with her primary care??to discuss further??referral. ??Consider??orthopedics or??neurosurgery.?? Return precautions were provided. Assessment/Plan 1.??Low back pain without sciatica??M54.50 Ordered: Medrol Dosepak 4 mg oral tablet, 1 packets, Oral, Daily, as directed on package labeling, # 21 tab,0 Refill(s), Pharmacy: [id number], 162.56, cm, 05/03/24 14:07:00 EDT, Height, 69.13, kg,05/03/24 14:13:00 EDT, Weight Dosing ?? Patient Education Acute Back Pain, Adult Problem List/Past Medical History Ongoing Dental decay Pain due to dental caries Vomiting Historical No qualifying data Medications Lesley 24 Hour Allergy oral tablet clonazePAM 0.5 mg oral tablet escitalopram 10 mg oral tablet escitalopram 20 mg oral tablet levothyroxine 75 mcg (0.075 mg) oral tablet lisinopril 5 mg oral tablet Medrol Dosepak 4 mg oral tablet, 1 packets, Oral, Daily pantoprazole 40 mg oral delayed release tablet penicillin V potassium 500 mg oral tablet, 500 mg= 1 tab, Oral, every 8 hr SUMAtriptan 100 mg oral tablet zaleplon 10 mg oral capsule Allergies predniSONE Social History Electronic Cigarette/Vaping Electronic Cigarette Use: Never. Tobacco Never tobacco user Tobacco Use:. Lab Results Test Name Test Result Date/Time Method of Collect POC cc 05/03/2024 14:13 EDT Specimen Color POC Yellow 05/03/2024 14:13 EDT Clarity, Urine POC Clear 05/03/2024 14:13 EDT Glucose, Urine POC Negative 05/03/2024 14:13 EDT Bilirubin, Urine POC Negative 05/03/2024 14:13 EDT Ketones, Urine POC Negative 05/03/2024 14:13 EDT Specific [place], Ur POC 1.025 05/03/2024 14:13 EDT pH, Urine POC 6.00 05/03/2024 14:13 EDT Protein, Urine POC Negative 05/03/2024 14:13 EDT Urobilinogen, Urine POC 0.2 05/03/2024 14:13 EDT Nitrite, Urine POC Negative 05/03/2024 14:13 EDT Blood, Urine POC Negative 05/03/2024 14:13 EDT Leuk Esterase, Urine POC Negative 05/03/2024 14:13 EDT Electronically Signed on 05/03/2024 19:03 EDT Aneta Hargrove APRN Outpatient Summary note * Aneta Hargrove APRN: PERFORM Event Display: Ambulatory Patient Summary Authored Date: [id number] ADAM TOMAS :1970 Age:53 years Sex:Female Visit Date:05/03/2024 Primary Care Physician: KESHIA GOLDBERG PA-C Ambulatory Visit Instructions We would like to thank you for allowing us to assist you with your healthcare needs. The following includes patient education materials and information regarding your injury/illness. Medications What How Much When Why Instructions New methylPREDNISolone (Medrol Dosepak 4 mg oral tablet) 1 packets Oral (given by mouth) Every day Low back pain without sciatica Duration: 6 Days as directed on package labeling ?? Pickup at [facility] Unchanged clonazePAM (clonazePAM 0.5 mg oral tablet) TAKE 1 TABLET BY MOUTH TWICE DAILY NEEDED ?? Unchanged escitalopram (escitalopram 10 mg oral tablet) TAKE 1 TABLET BY MOUTH ONCE DAILY WITH A 20MG TABLET FOR A TOTAL DAILY DOSE OF 30MG ?? Unchanged escitalopram (escitalopram 20 mg oral tablet) TAKE 1 TABLET BY MOUTH ONCE DAILY WITH A 10MG TABLET ?? Unchanged fexofenadine (Lesley 24 Hour Allergy oral tablet) Unchanged levothyroxine (levothyroxine 75 mcg (0.075 mg) oral tablet) TAKE 1 TABLET BY MOUTH ONCE DAILY ?? Unchanged lisinopril (lisinopril 5 mg oral tablet) TAKE 1 TABLET BY MOUTH ONCE DAILY ?? Unchanged pantoprazole (pantoprazole 40 mg oral delayed release tablet) Unchanged penicillin V potassium (penicillin V potassium [...] NIGHT NEEDED FOR SLEEP ?? Pharmacy Information [id number]: [address], [place] [id number] [phone] Your Summary Your Diagnosis Low back pain without sciatica Problems Ongoing - Any problem that you are currently receiving treatment for. Dental decay Pain due to dental caries Vomiting Outstanding Tests .Urinalysis POCT Tests Performed Test Name Test Result Date/Time Method of Collect POC cc 05/03/2024 14:13 EDT Specimen Color POC Yellow 05/03/2024 14:13 EDT Clarity, Urine POC Clear 05/03/2024 14:13 EDT Glucose, Urine POC Negative 05/03/2024 14:13 EDT Bilirubin, Urine POC Negative 05/03/2024 14:13 EDT Ketones, Urine POC Negative 05/03/2024 14:13 EDT Specific [place], Ur POC 1.025 05/03/2024 14:13 EDT pH, Urine POC 6.00 05/03/2024 14:13 EDT Protein, Urine POC Negative 05/03/2024 14:13 EDT Urobilinogen, Urine POC 0.2 05/03/2024 14:13 EDT Nitrite, Urine POC Negative 05/03/2024 14:13 EDT Blood, Urine POC Negative 05/03/2024 14:13 EDT Leuk Esterase, Urine POC Negative 05/03/2024 14:13 EDT Your Care Team Attending Physician - Aneta Hargrove APRN Primary Care Physician - KESHIA GOLDBERG PA-C Discharge Vitals Temperature??(Oral) 96.1 ??F (35.6 ??C) Heart Rate??(Peripheral) 61 Blood Pressure?? 153/70?? SpO2?? 100% Height?? 64.00 in (162.56 cm) Weight?? 152.43 lb (69.13 kg) BMI?? 26.16 Allergies predniSONE Education Materials Acute Back Pain, Adult Acute back pain is sudden and usually short-lived. It is often caused by an injury to the muscles and tissues in the back. The injury may result from: ? A muscle, tendon, or ligament getting overstretched or torn. Ligaments are tissues that connect bones to each other. Lifting something improperly can cause a back strain. ? Wear and tear (degeneration) of the spinal disks. Spinal disks are circular tissue that provide cushioning between the bones of the spine (vertebrae). ? Twisting motions, such as while playing sports or doing yard work. ? A hit to the back. ? Arthritis. You may have a physical exam, lab tests, and imaging tests to find the cause of your pain. Acute back pain usually goes away with rest and home care. Follow these instructions at home: Managing pain, stiffness, and swelling ? Take wqbf-gmm-vzedurr and prescription medicines only as told by your health care provider. Treatment may include medicines for pain and inflammation that are taken by mouth or applied to the skin, or muscle relaxants. ? Your health care provider may recommend applying ice during the first 24???48 hours after your painstarts. To do this: ? Put ice in [...] greater risk of damage to the area. ? If directed, apply heat to the affected area as often as told by your health care provider. Use theheat source that your health care provider recommends, such as a moist heat pack or a heating pad. ? Place a towel between your skin and the heat source. ? Leave the heat on for 20???30 minutes. ? Remove the heat if your skin turns bright red. This is especially important if you are unable to feel pain, heat, or cold. You have a greater risk of getting burned. Activity ? Do not stay in bed. Staying in bed for more than 1???2 days can delay your recovery. ? Sit up and stand up straight. Avoid leaning forward when you sit or hunching over when you stand. ? If you work at a desk, sit close to it so you do not need to lean over. Keep your chin tucked in. Keep your neck drawn back, and keep your elbows bent at a 90-degree angle (right angle). ? Sit high and close to the steering wheel when you drive. Add lower back (lumbar) support to your car seat, if needed. ? Take short walks on even surfaces as soon as you are able. Try to increase the length of time you walk each day. ? Do not sit, drive, or clearance coordinator one place for more than 30 minutes at a time. Sitting or standing for long periods of time can put stress on your back. ? Do not drive or use heavy machinery while taking prescription pain medicine. ? Use proper lifting techniques. When you bend and lift, use positions that put less stress on your back: ? Bend your knees. ? Keep the load close to your body. ? Avoid twisting. ? Exercise regularly as told by your health care provider. Exercising helps your back heal faster andhelps prevent back injuries by keeping muscles strong and flexible. ? Work with a physical therapist to make a safe exercise program, as recommended by your health care provider. Do any exercises as told by your physical therapist. Lifestyle ? Maintain a healthy weight. Extra weight puts stress on your back and makes it difficult to have good posture. ? Avoid activities or situations that make you feel anxious or stressed. Stress and anxiety increase muscle tension and can make back pain worse. Learn ways to manage anxiety and stress, such as through exercise. General instructions ? Sleep on a firm mattress in a comfortable position. Try lying on your side with your knees slightlybent. If you lie on your back, put a pillow under your knees. ? Keep your head and neck in a straight line with your spine (neutral position) when using electronicequipment like smartphones or pads. To do this: ? Raise your smartphone or pad to look at it instead of bending your head or neck to look down. ? Put the smartphone or pad at the level of your face while looking at the screen. ? Follow your treatment plan as told by your health care provider. This may include: ? Cognitive or behavioral therapy. ? Acupuncture or massage therapy. ? Meditation or yoga. Contact a health care provider if: ? You have pain that is not relieved with rest or medicine. ? You have increasing pain going down into your legs or buttocks. ? Your pain does not improve after 2 weeks. ? You have pain at night. ? You lose weight without trying. ? You have a fever or chills. ? You develop nausea or vomiting. ? You develop abdominal pain. Get help right away if: ? You develop new bowel or bladder control problems. ? You have unusual weakness or numbness in your arms or legs. ? You feel faint. These symptoms may represent a serious problem that is an emergency. Do not wait to see if the symptoms will go away. Get medical help right away. Call your local emergency services (911 in the [place] Do not drive yourself to the hospital. Summary ? Acute back pain is sudden and usually short-lived. ? Use proper lifting techniques. When you bend and lift, use positions that put less stress on your back. ? Take bspg-mfb-xidhdpn and prescription medicines only as told by your health care provider, and apply heat or ice as told. This information is not intended to replace advice given to you by your health care provider. Make sure you discuss any questions you have with your health care provider. Document Revised: 12/07/2021 Document Reviewed: 12/07/2021 [employer] Patient Education ?? 2022 [employer] Electronically Signed on: 05/03/2024 14:35 EDTSigned by:[facility] Patient Care team information Care Team Personnel Name: KESHIA GOLDBERG PA-C Position: No Access Member Role: Primary Care Physician Address: Address: [address] Care Team Related Persons Name: ZAHIRA SANTILLAN Address: Home Name: HEYDI TOMAS
--- OUTSIDE RECORDS SUMMARY | 2024-07-06 12:03 | XMS_ITS | Encounter Summary ---
Author Organization [facility] Address [address] [place] [address] Care Team Providers Care Cellophane Wrapping Examiner Name Role Phone Maryanne Buckley PA-C Primary Care Provider + Encounter Details Date Type Department Care Team (Late st Contact Info) Description 01/23/2021 Lab Requisition [facility] Pathology & Laboratory Medicine - [address] [id number] Outr Resulting Lab, Provider Social History Tobacco [...] Procedure Name Priority Date/Time Associated Diagnosis Comments QUANTIFERON TB GOLD PLUS Routine 01/22/2021 13:59 EDT documented in this encounter Results * QUANTIFERON TB GOLD PLUS (01/22/2021 13:59 EDT) Quantiferon Interpretation Negative Negative 01/24/2021 13:[address] [facility] Comment: No interferon-gamma response to M. tuberculosis antigens was detected. ??Infection with M. tuberculosis is unlikely. A single negative result does not exclude infection with M. tuberculosis. ??In patients at high risk for M. tuberculosis infection, a second test should be considered in accordance with the 2017 ATS/IDSA/CDC Clinical Practice Guidelines for Diagnosis of Tuberculosis in Adults and Children. [Kirill MIRANDA et. al. Clin. Infect. Dis. 2017:64 (2) ??: 111-115]. Results were obtained with the [employer] QuantiFERON TB Gold Plus RICK. TB1 Ag minus Nil 0.03 IU/ml 01/25/20 13:[address] [facility] TB2 Ag minus Nil 0.03 IU/mL 01/25/20 13:[address] [facility] Blood VENOUS BLOOD / Unknown 01/22/2021 13:59 EDT 01/23/2021 15:55 EDT [address]arrative [facility] - 01/24/2021 13:05 EDT Results were obtained with the [employer] QuantiFERON-TB Gold Plus RICK. Provider Outr Resulting Lab CHEMISTRY & BLOOD GAS ORDERABLES [facility] [address] [place] [address] documented in this encounter Visit Diagnoses Not on filedocumented in this encounter Care Teams Cellophane Wrapping Examiner Relationship Specialty Start Date End Date Maryanne Buckley PA-C PCP - General 05/09/14 documented as of this encounter
--- OUTSIDE RECORDS SUMMARY | 2024-07-06 12:03 | XMS_ITS | Continuity of Care Document ---
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 Role Phone KESHIA GOLDBERG PA-C Primary Care Lamine collinsmiriam Encounter LTTL_OR FIN NBR [id number] Date(s): 12/02/22 - 12/02/[address] [address]- Encounter Diagnosis Medication reaction(Discharge Diagnosis) - 12/02/22 Discharge Disposition: Home or Self Care Attending Physician: Saroj Jarrett MD Admitting Physician: Saroj Jarrett MD Allergies, Adverse Reactions, Alerts Substance Reaction Severity Status predniSONE Severe Active Medications clindamycin 300 mg oral capsule 300 mg = 1 cap, Oral, every 6 hr, X 10 days, # 40 cap, 0 Refill(s), 12/12/22 15:17:00 EDT, Pharmacy: [id number], 162.56, cm, 12/02/22 13:21:00 EST, Height/Length Dosing, 67.13, kg, 12/02/22 13:21:00 EST, Weight Dosing Start Date: 12/02/22 Stop Date: 12/12/22 Status: Ordered clonazePAM 0.5 mg oral tablet [...] ONCE DAILY Start Date: 11/11/22 Status: Ordered famotidine 10 mg oral tablet 10 mg = 1 tab, Oral, BID, X 7 days, # 14 tab, 0 Refill(s), 12/09/22 15:16:00 EDT, Pharmacy: [facility] [id number], 162.56, cm, 12/02/22 13:21:00 EST, Height/Length Dosing, 67.13, kg, 12/02/22 13:21:00 EST, Weight Dosing Start Date: 12/02/22 Stop Date: 12/09/22 Status: Ordered levothyroxine 75 mcg (0.075 mg) oral tablet TAKE 1 TABLET BY MOUTH ONCE DAILY Start Date: 11/11/22 Status: Ordered lisinopril 5 mg oral tablet TAKE 1 TABLET BY MOUTH ONCE DAILY Start Date: 11/11/22 Status: Ordered ondansetron 4 mg oral tablet 4 mg = 1 tab, Oral, every 8 hr, X 3 days, # 9 tab, 0 Refill(s), 12/05/22 15:19:00 EST, Pharmacy: [facility] [id number], 162.56, cm, 12/02/22 13:21:00 EST, Height/Length Dosing, 67.13, kg, 12/02/22 13:21:00 EST, Weight Dosing Start Date: 12/02/22 Stop Date: 12/05/22 Status: Ordered penicillin V potassium 500 mg oral tablet 500 mg = 1 tab, Oral, every 8 hr, # 30 tab, 0 Refill(s), Pharmacy: [facility] Start Date: 11/11/22 Stop Date: 11/21/22 [...] Effective Dates Status Health St atus Informant Vomiting Confirmed Active Results Laboratory List Name Date Automated Diff 12/02/22 .Morphology (LTTL) 12/02/22 CBC w/ Diff 12/02/22 Comprehensive Metabolic Panel (CMP) Most recent to oldest [Reference Range]: 1 WBC [4.8-10.8 K/mcL] 7.6 K/mcL (12/02/22 1:24 PM) RBC [4.20-5.40 Million/mcL] 3.71 Million /mcL *LOW* (12/02/22 1:24 PM) Neutro Auto [42.2-75.2 %] 73.2 % (12/02/22 1:24 PM) Lymph Auto [20.5-51.1 %] 17.7 % *LOW* (12/02/22 1:24 PM) [place] Auto [1.7-9.3 %] 6.3 % (12/02/22 1:24 PM) Basophil Auto [0.0-0.8 %] 1.0 % *HI* (12/02/22 1:24 PM) BUN [8-26 mg/dL] 13 mg/dL (12/02/22 1:24 PM) Glucose Level [74-106 mg/dL] 97 mg/dL (12/02/22 1:24 PM) Potassium Level [3.5-5.1 mmol/L] 3.5 mmo l/L (12/02/22 1:24 PM) Baso Absolute [0.0-0.2 K/mcL] 0.1 K/mcL (12/02/22 1:24 PM) MCV [81.0-99.0 fL] 86.5 fL (12/02/22 1:24 PM) RBC Morph [Normal] Abnormal *ABN* (12/02/22 1:24 PM) AST [15-41 IntlUnit/L] 28 IntlUnit/L (12/02/22 1:24 PM) ALT [14-54 IntlUnit/L] 27 IntlUnit/L (12/02/22 1:24 PM) MCHC [32.0-36.0 g/dL] 30.5 g/dL *LOW* (12/02/22 1:24 PM) Osmolality [275-295 mOsm/kg] 272 mOsm/kg *LOW* (12/02/22 1:24 PM) Sodium Level [134-143 mmol/L] 136 mmol/L (12/02/22 1:24 PM) Lymph Absolute [1.2-3.4 K/mcL] 1.4 K/mcL (12/02/22 1:24 PM) Hct [37.0-47.0 %] 32.1 % *LOW* (12/02/22: PM) Hypochromia 1+ *ABN* (12/02/22: PM) Calcium Level [8.9-10.3 mg/dL] 10.6 mg/d L *HI* (12/02/22: PM) [place] Absolute [0.1-0.6 K/mcL] 0.5 K/mcL (12/02/22: PM) Albumin Level [3.5-5.0 g/dL] 3.9 g/dL (12/02/22: PM) Protein Total [6.5-8.1 g/dL] 7.8 g/dL (12/02/22 1:24 PM) MCH [27.0-31.0 pg] 26.4 pg *LOW* (12/02/22 1: PM) Neutro Absolute [1.4-6.5 K/mcL] 5.6 K/mc L (12/02/22: PM) Bilirubin Total [0.2-1.2 mg/dL] 0.5 mg/d L (12/02/22 1:24 PM) Hgb [12.0-16.0 g/dL] 9.8 g/dL *LOW* (12/02/22:24 PM) Alk Phos [38-130 IntlUnit/L] 79 IntlUnit /L (12/02/22 1:24 PM) MPV [7.4-10.4 fL] 9.9 fL (12/02/22 1:24 PM) Platelets [130-400 K/mcL] 348 K/mcL (12/02/22 1:24 PM) CO2 [22-32 mmol/L] 27 mmol/L (12/02/22 1:24 PM) Eos Absolute [0.0-0.2 K/mcL] 0.1 K/mcL (12/02/22 1:24 PM) Chloride Level [98-111 mmol/L] 99 mmol/L (12/02/22 1:24 PM) RDW-CV [11.5-14.5 %] 15.0 % *HI* (12/02/22 1:24 PM) A/G Ratio 1.0 *NA* (12/02/22 1:24 PM) BUN/Creat Ratio [8.0-20.0] 20.6 *HI* (12/02/22 1:24 PM) Globulin 3.9 *NA* (12/02/22 1:24 PM) Imm Gran Absolute 0.03 *NA* (12/02/22 1:24 PM) Imm Gran Auto [0.0-0.5 %] 0.4 % (12/02/22 1:24 PM) Creatinine Level [0.44-1.00 mg/dL] 0.63 mg/dL (12/02/22 1:24 PM) Plt Estimation Normal (12/02/22 1:24 PM) Anion Gap [3.0-12.0] 10.0 (12/02/22 1:24 PM) Eos, Auto [0.00-3.00 %] 1.40 % (12/02/22 1:24 PM) eGFR CKD-EPI [>=60 mL/min/1.73 m2] 106 m L/min/1.73 m2 (12/02/22 1:24 PM) Vital Signs Most recent to oldest [Reference Range]: 1 2 3 Temperature Temporal Artery [36-38 Deg C] 36.3 Deg C (12/02/22 1:13 PM) Peripheral Pulse Rate [60-100 bpm] 57 bpm *LOW* (12/02/22 3:00 PM) 55 bpm *LOW* (12/02/22 2:59 PM) 58 bpm *LOW* (12/02/22 2:45 PM) Respiratory Rate [12-24 br/min] 14 br/min (12/02/22 1:13 PM) Blood Pressure [90-140/60-90 mmHg] 124/64mmHg (12/02/22 3:00 PM) 142/66mmHg *HI* (12/02/22 2:45 PM) 133/69mmHg (12/02/22 2:15 PM) Mean Arterial Pressure Cuff 82 mmHg (12/02/22 3:00 PM) 88 mmHg (12/02/22 2:45 PM) 88 mmHg (12/02/22 2:15 PM) Weight Dosing 67.13 kg (12/02/22 1:21 PM) Weight Estimated 67.13 kg (12/02/22 1:13 PM) Height/Length Dosing 162.560 cm (12/02/22 1:21 PM) Height/Length Estimated 162.560 cm (12/02/22 1:13 PM) Social History Social History Type Response Tobacco Never tobacco user T obacco Use:. Sex Hospital Discharge Instructions Patient Education 12/02/2022 14:14:46 Drug Allergy Drug Allergy A drug allergy happens when the body's disease-fighting system (immune system) reacts badly to a medicine. Drug allergies range from mild to severe. Some allergic reactions occur one week or more after you are exposed to a medicine (delayed reaction). A sudden (acute), severe allergic reaction that affects multiple areas of the body is called an anaphylactic reaction (anaphylaxis). Anaphylaxis can be life-threatening. All allergic reactions to a medicine require medical evaluation, even if the allergic reaction appears to be mild. What are the causes? This condition is caused by the immune system wrongly identifying a medicine as being harmful. Whenthis happens, the body releases proteins (antibodies) and other compounds, such as histamine, into the bloodstream. This causes swelling in certain tissues and reduces blood flow to important areas, such as the heart and lungs. Almost any medicine can cause an allergic reaction. Medicines that commonly cause allergic reactions (are common allergens) include: ??? Penicillin. ??? Sulfa medicines (sulfonamides). ??? Medicines that numb certain areas of the body (local anesthetics). ??? X-ray dyes that contain iodine. What are the signs or symptoms? Common symptoms of a mild allergic reaction include: ??? Nasal congestion. ??? Tingling in the mouth. ??? An itchy, red rash. Common symptoms of a severe allergic reaction include: ??? Swelling of the eyes, lips, face, or tongue. ??? Swelling of the back of the mouth and the throat. ??? Wheezing. ??? A hoarse voice. ??? Itchy, red, swollen areas of skin (hives). ??? Dizziness or light-headedness. ??? Fainting. ??? Anxiety or confusion. ??? Abdominal pain. ??? Difficulty breathing, speaking, or swallowing. ??? Chest tightness. ??? Fast or irregular heartbeats (palpitations). ??? Vomiting. ??? Diarrhea. How is this diagnosed? This condition is diagnosed based on a physical exam and your history of recent exposure to one or more medicines. You may be referred for follow-up testing by a health care provider who specializes in allergies. This testing can confirm the diagnosis of a drug allergy and determine which medicinesyou are allergic to. Testing may include: ??? Skin tests. These may involve: ??? Injecting a small amount of the possible allergen between layers of your skin (intradermal injection). ??? Applying patches to your skin. ??? Blood tests. ??? Drug challenge. For this test, a health care provider gives you a small amount of a medicine ingradual doses while watching for an allergic reaction. If you are unsure of what caused your allergic reaction, your health care provider may ask you for: ??? Information about all medicines that you take on a regular basis. ??? The date and time of your reaction. How is this treated? There is no cure for allergies. However, an allergic reaction can be treated with: ??? Medicines that help: ??? Reduce pain and swelling (NSAIDs). ??? Relieve itching and hives (antihistamines). ??? Reduce swelling (corticosteroids). ??? Respiratory inhalers. These are inhaled medicines that help open (dilate) the airways in your lungs. ??? Injections of medicine that helps to relax the muscles in your airways and tighten your blood vessels (epinephrine). Severe allergic reactions, such as anaphylaxis, require immediate treatment in a hospital. You may need to be hospitalized for observation. You may also be prescribed rescue medicines, such as epinephrine. Epinephrine comes in many forms, including what is commonly called an auto-injector pen (pre-filled automatic epinephrine injection device). Follow these instructions at home: If you have a severe allergy ??? Always keep an auto-injector pen or your anaphylaxis kit near you. These can be lifesaving if you have a severe reaction. Use your auto-injector pen or anaphylaxis kit as told by your health careprovider. ??? Make sure that you, the members of your household, and your employer know: ??? How to use an anaphylaxis kit. ??? How to use an auto-injector pen to give you an epinephrine injection. ??? Replace your epinephrine immediately after you use your auto-injector pen, in case you have another reaction. ??? Wear a medical alert bracelet or necklace that states your drug allergy, if told by your healthcare provider. General instructions ??? Avoid??medicines that you are allergic to. ??? Take dgkh-dvj-xvsknwi and prescription medicines only as told by your health care provider. ??? If you were given medicines to treat your reaction, do not drive until your health care provider approves. ??? If you have hives or a rash: ??? Use an vmrm-bol-inuvtjh antihistamine??as told by your health care provider. ??? Apply cold, wet cloths (cold compresses) to your skin or take baths or showers in cool water. Avoid hot water. ??? If you had tests done, it is up to you to get your test results. Ask your health care provider when your results will be ready. ??? Tell any health care providers who care for you that you have a drug allergy. ??? Keep all follow-up visits as told by your health care provider. This is important. Contact a health care provider if: ??? You think that you are having a mild allergic reaction. Symptoms of an allergic reaction usually start within 30 minutes after you are exposed to a medicine. ??? You have symptoms that last more than 2 days after your reaction. ??? Your symptoms get worse. ??? You develop new symptoms. Get help right away if: ??? You needed to use epinephrine. ??? An epinephrine injection helps to manage life-threatening allergic reactions, but you still need to go to the emergency room even if epinephrine seems to work. This is important because anaphylaxis may happen again within 72 hours (rebound anaphylaxis). ??? If you used epinephrine to treat anaphylaxis outside of the hospital, you need additional medical care. This may include more doses of epinephrine. ??? You develop symptoms of a severe allergic reaction. These symptoms may represent a serious problem that is an emergency. Do not wait to see if the symptoms will go away. Use your auto-injector pen or anaphylaxis kit as you have been instructed, and get medical help right away. Call your local emergency services (911 in the [place] Do not drive yourself to the hospital. Summary ??? A drug allergy happens when the body's disease-fighting system reacts badly to a medicine. ??? Drug allergies range from mild to severe. In some cases, an allergic reaction may be life-threatening. ??? If you have a severe allergy, always keep an auto-injector pen or your anaphylaxis kit near you. This information is not intended to replace advice given to you by your health care provider. Make sure you discuss any questions you have with your health care provider. Document Revised: 11/23/2021 Document Reviewed: 03/31/2019 Elsevier Patient Education ?? 2021 [employer] Follow Up Care 12/02/2022 13:13:53 With:Follow-up with dental provider Address: When:2 to 4 days Comments:Contact local dental provider for further evaluation??over the next several days. ??Return to emergency department for any worsening symptoms With:Follow-up with your primary care Address: When:1 week Comments:Follow-up with your primary care as needed, they will be able to reevaluate if necessaryReturn to ED if concerns Physician Emergency department Note * OMAR Kebede: PERFORM Event Display: ED Note Physician Authored Date: [id number] GENOVEVA ADAM J :1970 Age:52 years Sex:Female Visit Date:12/02/2022 Primary Care Physician: KESHIA GOLDBERG PA-C Basic Information Time Seen: OMAR Kebede / 12/02/2022 13:16 Chief Complaint Dental infection on second round of peniccillin, 1st 10 day course, then started on another course started on Sunday 11/26. Pt also reports vomiting for 2 days now and odd feeling in her mouth- tingling of tongue. Denies SOB, wheezing or chest pain. History Of Present Illness: Patient 52-year-old female presents the emergency department having had??dental pain now for upwards of 2-1/2 weeks. ??She was treated with a 10-day course of penicillin and??then saw??dental provider. ??She is scheduled for week from tomorrow for dental extraction.?? She continued to have pain anddiscomfort primarily in tooth #3 and 30??and??was placed on a second course of penicillin.?? She is??5 days into the second course??and she started vomiting 2 days ago??intermittently and today was much more consistent.?? She then woke up today with some??feelings of tongue swelling as well as tingling.?? She is having no difficulty breathing wheezing or??other upper respiratory symptoms.?? She is not having difficulty talking and??has some??blotchy skin on her chest but she states that this isher baseline. Review of Systems: See HPI Physical Exam Vitals & Measurements T:??36.3?C ??(Temporal Artery)?? HR:??57??(Peripheral)?? RR:??14?? BP:??124/64?? SpO2:??96%?? HT:??162.560??cm?? WT:??67.13??kg??(Estimated)?? Pain Score:??4?? Patient alert oriented age-appropriate well-nourished nontoxic Normocephalic atraumatic Neck supple nontender EOM intact, PERRLA, sclera nonicteric Clear to auscultation bilaterally Regular rate and rhythm no murmurs Abdominal exam reveals normal bowel sounds, negative rebound tenderness, negative psoas sign Normal gait and station, normal strength all extremities Neuro exam intact without focal deficit Appropriate mood and affect Medical Decision Making: While here in??the emergency department patient was initially??ordered methylprednisolone, famotidine, Benadryl however she is allergic to prednisone, she??states that it causes her acute psychosis. ??Therefore methylprednisolone is held.?? She is given famotidine, Benadryl and Zofran. ??She felt si gnificant??only better with tongue swelling reducing??as well as tingling beginning to subside. ??She has no wheezing or stridor??she has monitored for 2 hours here in the emergency department with no acute findings and ultimately will be discharged. Procedure No Qualifying Data Assessment/Plan 1.??Medication reaction??T50.905A Patient be discharged with??famotidine to take Benadryl as needed She will discontinue her penicillin and will start clindamycin. ??She will follow-up with dental provider as scheduled.?? She has any new or worsening symptoms she will return to the emergency department immediately. She agrees with discharge Ordered: clindamycin 300 mg oral capsule, 300 mg = 1 cap, Oral, every 6 hr, X 10 days, # 40 cap, 0 Refill(s), 12/12/22 15:17:00 EDT, Pharmacy: [id number], 162.56, cm, 12/02/22 13:21:00 EST, Height/Length Dosing, 67.13, kg, 12/02/22 13:21:00 EST, Weight Dosing famotidine 10 mg oral tablet, 10 mg = 1 tab, Oral, BID, X 7 days, # 14 tab, 0 Refill(s), 12/09/22 15:16:00 EDT, Pharmacy: [id number], 162.56, cm, 12/02/22 13:21:00 EST, Height/Length Dosing, 67.13, kg, 12/02/22 13:21:00 EST, Weight Dosing ?? Orders: Pepcid, 20 mg = 50 mL, IV Piggyback, Injection, Daily for 30 days, Administer over: 30 minutes, First Dose: 12/02/22 13:22:00 EST, Stop Date: 01/01/23 8:59:00 EDT, Physician Stop, 100 mL/hr ondansetron 4 mg oral tablet, 4 mg = 1 tab, Oral, every 8 hr, X 3 days, # 9 tab, 0 Refill(s), 12/05/22 15:19:00 EST, Pharmacy: [id number], 162.56, cm, 12/02/22 13:21:00 EST, Height/Length Dosing, 67.13, kg, 12/02/22 13:21:00 EST, Weight Dosing Discharge Patient, 12/02/22 15:11:00 EST Patient Education Drug Allergy Follow Up With When Contact Information Follow-up with dental provider Within 2 to 4 days Additional Instructions: Contact local dental provider for further evaluation??over the next several days. ??Return to emergency department for any worsening symptoms Follow-up with your primary care Within 1 week Additional Instructions: Follow-up with your primary care as needed, they will be able to reevaluate if necessary Return to ED if concerns Medication Reconciliation New Prescription clindamycin (clindamycin 300 mg oral capsule)1 Capsules Oral (given by mouth) every 6 hours for 10 Days. Refills: 0. ?? famotidine (famotidine 10 mg oral tablet)1 tab Oral (given by mouth) 2 times a day for 7 Days. Refills: 0. ?? ondansetron (ondansetron 4 mg oral tablet)1 tab Oral (given by mouth) every 8 hours for 3 Days. Refills: 0. ?? Unchanged cetirizine (ZyrTEC 10 mg oral tablet)1 [...] FOR SLEEP. Problem List/Past Medical History Ongoing Vomiting Historical No qualifying data Medication Administration Given !-Zofran, 4 mg, IV Push acetaminophen, 1000 mg, Oral Benadryl, 25 mg, IV Push Pepcid, 20 mg, IV Piggyback Allergies predniSONE Social History Electronic Cigarette/Vaping Electronic Cigarette Use: Never. Tobacco Never tobacco user Tobacco Use:. Lab Results CBC and Differential?? LATEST RESULTS?? WBC?? 12/02/22 13:24?? 7.6?? RBC?? 12/02/22 13:24?? 3.71 ??Low?? Hgb?? 12/02/22 13:24?? 9.8 ??Low?? Hct?? 12/02/22 13:24?? 32.1 ??Low?? MCV?? 12/02/22 13:24?? 86.5?? MCH?? 12/02/22 13:24?? 26.4 ??Low?? MCHC?? 12/02/22 13:24?? 30.5 ??Low?? RDW-CV?? 12/02/22 13:24?? 15.0 ??High?? Platelets?? 12/02/22 13:24?? 348?? MPV?? 12/02/22 13:24?? 9.9?? Neutro Auto?? 12/02/22 13:24?? 73.2?? Lymph Auto?? 12/02/22 13:24?? 17.7 ??Low?? [place] Auto?? 12/02/22 13:24?? 6.3?? Eos, Auto?? 12/02/22 13:24?? 1.40?? Basophil Auto?? 12/02/22 13:24?? 1.0 ??High?? Imm Gran Auto?? 12/02/22 13:24?? 0.4?? Neutro Absolute?? 12/02/22 13:24?? 5.6?? Lymph Absolute?? 12/02/22 13:24?? 1.4?? [place] Absolute?? 12/02/22 13:24?? 0.5?? Eos Absolute?? 12/02/22 13:24?? 0.1?? Baso Absolute?? 12/02/22 13:24?? 0.1?? Imm Gran Absolute?? 12/02/22 13:24?? 0.03?? RBC Morph?? 12/02/22 13:24?? Abnormal Abnormal?? Hypochromia?? 12/02/22 13:24?? 1+ Abnormal?? Plt Estimation?? 12/02/22 13:24?? Normal? Routine Chemistry?? LATEST RESULTS?? Sodium Level?? 12/02/22 13:24?? 136?? Potassium Level?? 12/02/22 13:24?? 3.5?? Chloride Level?? 12/02/22 13:24?? 99?? CO2?? 12/02/22 13:24?? 27?? Alk Phos?? 12/02/22 13:24?? 79?? AST?? 12/02/22 13:24?? 28?? ALT?? 12/02/22 13:24?? 27?? BUN?? 12/02/22 13:24?? 13?? Glucose Level?? 12/02/22 13:24?? 97?? Creatinine Level?? 12/02/22 13:24?? 0.63?? BUN/Creat Ratio?? 12/02/22 13:24?? 20.6 ??High?? Calcium Level?? 12/02/22 13:24?? 10.6 ??High?? Protein Total?? 12/02/22 13:24?? 7.8?? Albumin Level?? 12/02/22 13:24?? 3.9?? Globulin?? 12/02/22 13:24?? 3.9?? A/G Ratio?? 12/02/22 13:24?? 1.0?? Bilirubin Total?? 12/02/22 13:24?? 0.5?? Anion Gap?? 12/02/22 13:24?? 10.0?? Osmolality?? 12/02/22 13:24?? 272 ??Low?? eGFR CKD-EPI?? 12/02/22 13:24?? 106? Electronically Signed on 12/02/22 04:36 PM OMAR Kebede Emergency department Discharge instructions * OMAR Kebede: PERFORM Event Display: ED Discharge Information Authored Date: [id number] ADAM TOMAS :1970 Age:52 years Sex:Female Visit Date:12/02/2022 Primary Care Physician: ASHLYN MATSON, KESHIA STONE Discharge Instructions We would like to thank you for allowing us to assist you with your healthcare needs. The following includes patient education materials and information regarding your injury/illness. Diagnosis from Today's Visit Medication reaction Discharge Vitals Temperature??(Temporal Artery) 97.3 ??F (36.3 ??C) Heart Rate??(Peripheral) 57 Respiratory Rate?? 14 Blood Pressure?? 124/64?? Height?? 64.00 in (162.560 cm) Weight??(Estimated) 148.02 lb (67.13 kg) Allergies predniSONE What to Do Next Instructions from Your Care Team Discontinue??your penicillin Follow-up with dentist as prescribed Return if necessary You Need to Schedule the Following Appointments Follow Up with??Follow-up with dental provider When:??Within 2 to 4 days Why: Contact local dental provider for further evaluation??over the next several days. ??Return to emergency department for any worsening symptoms Follow Up with??Follow-up with your primary care When:??Within 1 week Why: Follow-up with your primary care as needed, they will be able to reevaluate if necessary Return to ED if concerns You were treated today on an emergency [...] How Much When Why Instructions Next Dose New clindamycin (clindamycin 300 mg oral capsule) 1 Capsules Oral (given by mouth) Every 6 hours Duration: 7 Days Pickup at [facility] New famotidine (famotidine 10 mg oral tablet) 1 tab Oral (given by mouth) 2 times a day Duration: 7 Days Pickup at [facility] Unchanged cetirizine (ZyrTEC 10 mg oral tablet) [...] NIGHT NEEDED FOR SLEEP ?? Pharmacy Information [facility]: [address] [place] [address] [phone] Education Materials Drug Allergy A drug allergy happens when the body's disease-fighting system (immune system) reacts badly to a medicine. Drug allergies range from mild to severe. Some allergic reactions occur one week or more after you are exposed to a medicine (delayed reaction). A sudden (acute), severe allergic reaction that affects multiple areas of the body is called an anaphylactic reaction (anaphylaxis). Anaphylaxis can be life-threatening. All allergic reactions to a medicine require medical evaluation, even if the allergic reaction appears to be mild. What are the causes? This condition is caused by the immune system wrongly identifying a medicine as being harmful. Whenthis happens, the body releases proteins (antibodies) and other compounds, such as histamine, into the bloodstream. This causes swelling in certain tissues and reduces blood flow to important areas, such as the heart and lungs. Almost any medicine can cause an allergic reaction. Medicines that commonly cause allergic reactions (are common allergens) include: ? Penicillin. ? Sulfa medicines (sulfonamides). ? Medicines that numb certain areas of the body (local anesthetics). ? X-ray dyes that contain iodine. What are the signs or symptoms? Common symptoms of a mild allergic reaction include: ? Nasal congestion. ? Tingling in the mouth. ? An itchy, red rash. Common symptoms of a severe allergic reaction include: ? Swelling of the eyes, lips, face, or tongue. ? Swelling of the back of the mouth and the throat. ? Wheezing. ? A hoarse voice. ? Itchy, red, swollen areas of skin (hives). ? Dizziness or light-headedness. ? Fainting. ? Anxiety or confusion. ? Abdominal pain. ? Difficulty breathing, speaking, or swallowing. ? Chest tightness. ? Fast or irregular heartbeats (palpitations). ? Vomiting. ? Diarrhea. How is this diagnosed? This condition is diagnosed based on a physical exam and your history of recent exposure to one or more medicines. You may be referred for follow-up testing by a health care provider who specializes in allergies. This testing can confirm the diagnosis of a drug allergy and determine which medicinesyou are allergic to. Testing may include: ? Skin tests. These may involve: ? Injecting a small amount of the possible allergen between layers of your skin (intradermal injection). ? Applying patches to your skin. ? Blood tests. ? Drug challenge. For this test, a health care provider gives you a small amount of a medicine in gradual doses while watching for an allergic reaction. If you are unsure of what caused your allergic reaction, your health care provider may ask you for: ? Information about all medicines that you take on a regular basis. ? The date and time of your reaction. How is this treated? There is no cure for allergies. However, an allergic reaction can be treated with: ? Medicines that help: ? Reduce pain and swelling (NSAIDs). ? Relieve itching and hives (antihistamines). ? Reduce swelling (corticosteroids). ? Respiratory inhalers. These are inhaled medicines that help open (dilate) the airways in your lungs. ? Injections of medicine that helps to relax the muscles in your airways and tighten your blood vessels (epinephrine). Severe allergic reactions, such as anaphylaxis, require immediate treatment in a hospital. You may need to be hospitalized for observation. You may also be prescribed rescue medicines, such as epinephrine. Epinephrine comes in many forms, including what is commonly called an auto-injector pen (pre-filled automatic epinephrine injection device). Follow these instructions at home: If you have a severe allergy ? Always keep an auto-injector pen or your anaphylaxis kit near you. These can be lifesaving if you have a severe reaction. Use your auto-injector pen or anaphylaxis kit as told by your health care provider. ? Make sure that you, the members of your household, and your employer know: ? How to use an anaphylaxis kit. ? How to use an auto-injector pen to give you an epinephrine injection. ? Replace your epinephrine immediately after you use your auto-injector pen, in case you have anotherreaction. ? Wear a medical alert bracelet or necklace that states your drug allergy, if told by your health care provider. General instructions ? Avoid??medicines that you are allergic to. ? Take jhwl-gdg-lbvuvei and prescription medicines only as told by your health care provider. ? If you were given medicines to treat your reaction, do not drive until your health care provider approves. ? If you have hives or a rash: ? Use an xtqa-zmj-vfgnjbv antihistamine??as told by your health care provider. ? Apply cold, wet cloths (cold compresses) to your skin or take baths or showers in cool water. Avoidhot water. ? If you had tests done, it is up to you to get your test results. Ask your health care provider whenyour results will be ready. ? Tell any health care providers who care for you that you have a drug allergy. ? Keep all follow-up visits as told by your health care provider. This is important. Contact a health care provider if: ? You think that you are having a mild allergic reaction. Symptoms of an allergic reaction usually start within 30 minutes after you are exposed to a medicine. ? You have symptoms that last more than 2 days after your reaction. ? Your symptoms get worse. ? You develop new symptoms. Get help right away if: ? You needed to use epinephrine. ? An epinephrine injection helps to manage life-threatening allergic reactions, but you still need togo to the emergency room even if epinephrine seems to work. This is important because anaphylaxis may happen again within 72 hours (rebound anaphylaxis). ? If you used epinephrine to treat anaphylaxis outside of the hospital, you need additional medical care. This may include more doses of epinephrine. ? You develop symptoms of a severe allergic reaction. These symptoms may represent a serious problem that is an emergency. Do not wait to see if the symptoms will go away. Use your auto-injector pen or anaphylaxis kit as you have been instructed, and get medical help right away. Call your local emergency services (911 in the [place] Do not drive yourself to the hospital. Summary ? A drug allergy happens when the body's disease-fighting system reacts badly to a medicine. ? Drug allergies range from mild to severe. In some cases, an allergic reaction may be life-threatening. ? If you have a severe allergy, always keep an auto-injector pen or your anaphylaxis kit near you. This information is not intended to replace advice given to you by your health care provider. Make sure you discuss any questions you have with your health care provider. Document Revised: 11/23/2021 Document Reviewed: 03/31/2019 [employer] Patient Education ?? 2021 [employer] Tests Performed Medications and Immunizations Administered Given !-Zofran, 4 mg, IV Push acetaminophen, 1000 mg, Oral Benadryl, 25 mg, IV Push Pepcid, 20 mg, IV Piggyback Lab Test Name Test Result Date/Time WBC 7.6 K/mcL 12/02/2022 13:24 EST RBC 3.71 Million/mcL 12/02/2022 13:24 EST Hgb 9.8 g/dL 12/02/2022 13:24 EST Hct 32.1 % 12/02/2022 13:24 EST MCV 86.5 fL 12/02/2022 13:24 EST MCH 26.4 pg 12/02/2022 13:24 EST MCHC 30.5 g/dL 12/02/2022 13:24 EST RDW-CV 15.0 % 12/02/2022 13:24 EST Platelets 348 K/mcL 12/02/2022 13:24 EST MPV 9.9 fL 12/02/2022 13:24 EST Neutro Auto 73.2 % 12/02/2022 13:24 EST Lymph Auto 17.7 % 12/02/2022 13:24 EST [place] Auto 6.3 % 12/02/2022 13:24 EST Eos, Auto 1.40 % 12/02/2022 13:24 EST Basophil Auto 1.0 % 12/02/2022 13:24 EST Imm Gran Auto 0.4 % 12/02/2022 13:24 EST Neutro Absolute 5.6 K/mcL 12/02/2022 13:24 EST Lymph Absolute 1.4 K/mcL 12/02/2022 13:24 EST [place] Absolute 0.5 K/mcL 12/02/2022 13:24 EST Eos Absolute 0.1 K/mcL 12/02/2022 13:24 EST Baso Absolute 0.1 K/mcL 12/02/2022 13:24 EST Imm Gran Absolute 0.03 12/02/2022 13:24 EST RBC Morph Abnormal 12/02/2022 13:24 EST Hypochromia 1+ 12/02/2022 13:24 EST Plt Estimation Normal 12/02/2022 13:24 EST Sodium Level 136 mmol/L 12/02/2022 13:24 EST Potassium Level 3.5 mmol/L 12/02/2022 13:24 EST Chloride Level 99 mmol/L 12/02/2022 13:24 EST CO2 27 mmol/L 12/02/2022 13:24 EST Alk Phos 79 IntlUnit/L 12/02/2022 13:24 EST AST 28 IntlUnit/L 12/02/2022 13:24 EST ALT 27 IntlUnit/L 12/02/2022 13:24 EST BUN 13 mg/dL 12/02/2022 13:24 EST Glucose Level 97 mg/dL 12/02/2022 13:24 EST Creatinine Level 0.63 mg/dL 12/02/2022 13:24 EST BUN/Creat Ratio 20.6 12/02/2022 13:24 EST Calcium Level 10.6 mg/dL 12/02/2022 13:24 EST Protein Total 7.8 g/dL 12/02/2022 13:24 EST Albumin Level 3.9 g/dL 12/02/2022 13:24 EST Globulin 3.9 12/02/2022 13:24 EST A/G Ratio 1.0 12/02/2022 13:24 EST Bilirubin Total 0.5 mg/dL 12/02/2022 13:24 EST Anion Gap 10.0 12/02/2022 13:24 EST Osmolality 272 mOsm/kg 12/02/2022 13:24 EST eGFR CKD-EPI 106 mL/min/1.73 m2 12/02/2022 13:24 EST Patient/Broommaker Signature Patient Name:ADAM TOMAS I have received this information and my questions have been answered. Patient/Broommaker Name: Patient/Broommaker Signature: Relationship to Patient: Witness Name/Signature: Date: Electronically Signed on: 12/02/2022 15:15 ESTSigned by: Patient Care team information Care Team Personnel Name: ASHLYN MATSON, KESHIA STONE Position: No Access Member Role: Primary Care Physician Address: Address: [address] [address]- [place] Name: OMAR Kebede Position: Physician Member Role: Physician Peat Shredder Tender Address: Address: [address] [place] [id number] Name: Charmaine Dyer Position: Nurse Member Role: ED Nurse Care Team Related Persons Name: ZAHIRA SANTILLAN
--- OUTSIDE RECORDS SUMMARY | 2024-07-06 12:03 | XMS_ITS | Encounter Summary ---
Author Organization [facility] Address [address] [place] [address] Care Team Providers Care Rope Cleaner Name Role Phone Maryanne Buckley PA-C Primary Care Provider + Encounter Details Date Type Department Care Team (Late st Contact Info) Description 03/17/2024 Lab Requisition [facility] Pathology & Laboratory Medicine - [address] [id number] Outr Resulting Lab, Provider Social History Tobacco [...] Procedure Name Priority Date/Time Associated Diagnosis Comments LYME AB Routine 03/17/2024 12:28 EDT documented in this encounter Results * LYME AB (03/17/2024 12:28 EDT) Lyme Ab Negative Negative 03/18/2024 12:22 EDT [facility] Blood VENOUS BLOOD / Unknown 03/17/2024 12:28 EDT 03/17/2024 21:30 EDT Provider Outr Resulting Lab IMMUNOLOGY A ND SEROLOGY ORDERABLES [facility] [address] [place] [address] documented in this encounter Visit Diagnoses Not on filedocumented in this encounter Care Teams Rope Cleaner Relationship Specialty Start Date End Date Maryanne Buckley PA-C PCP - General 05/09/14 documented as of this encounter
--- OUTSIDE RECORDS SUMMARY | 2024-07-06 12:03 | XMS_ITS | Continuity of Care Document ---
Author Organization [facility] Address [address] [place] [phone] Care Team Providers Care Executive Receptionist Name Role Phone KESHIA GOLDBERG PA-C Primary Care Phy randolph Encounter LTTL_LA FIN NBR [id number] Date(s): 03/18/23 - 03/18/[address] [address]- Encounter Diagnosis Hypothyroidism, unspecified(Final) - Discharge Disposition: Home or Self Care Attending Physician: DR. NIKI GOLDBERG Admitting Physician: DR. NIKI GOLDBERG Referring Physician: KESHIA GOLDBERG PA-C Allergies, Adverse Reactions, Alerts Substance Reaction Severity [...] Confirmed Active Results Laboratory List Name Date Lipid Panel 03/18/23 Thyroid Stimulating Hormone 03/18/23 Most recent to oldest [Reference Range]: 1 Cholesterol Total [129-209 mg/dL] 192 mg /dL (03/18/23 10:33 AM) LDL 112.2 *NA* (03/18/23 10:33 AM) HDL [40-80 mg/dL] 62 mg/dL (03/18/23 10:33 AM) Chol/HDL 3.1 *NA* (03/18/23 10:33 AM) Triglycerides [10-150 mg/dL] 88 mg/dL (03/18/23 10:33 AM) TSH [0.45-5.33 mIntlUnit/mL] 2.27 mIntlU nit/mL (03/18/23 10:33 AM) Social History Social History Type Response Tobacco Never tobacco user T obacco Use:. Sex Patient Care team information Care Team Personnel Name: KESHIA GOLDBERG PA-C Position: No Access Member Role: Primary Care Physician Address: Address: [address] Care Team Related Persons Name: ZAHIRA SANTILLAN Address: Home
--- OUTSIDE RECORDS SUMMARY | 2024-07-06 12:03 | XMS_ITS | Encounter Summary ---
Author Organization [facility] Address [address] [place] [address] Care Team Providers Care Housekeeping/Laundry Name Role Phone Maryanne Buckley PA-C Primary Care Provider + Encounter Details Date Type Department Care Team (Late st Contact Info) Description 04/17/2021 Lab Requisition [facility] Pathology & Laboratory Medicine - [facility] [address] [place] [address] Maryanne Buckley PA-C [address] [place] [address] Encounter for other general examination Social History Tobacco Use Types Packs/Day Years [...] Procedure Name Priority Date/Time Associated Diagnosis Comments PAP TEST Today 04/13/2021 10:10 EDT Encounter for other general examination HPV DNA DETECTION WITH GENOTYPING, PCR Today 04/13/2021 10:10 EDT Encounter for other general examination documented in this encounter Results * HUMAN PAPILLOMAVIRUS (HPV) DETECTION-HIGH RISK TYPES (04/13/2021 10:10 EDT) HPV other High Risk types, PCR Negative Negative 04/30/2021 15:06 EDT [facility] Comment:No E6 or E7 mRNA is detected from HPV types 16,18,31,33,35,39,45,51,52,56,58,59,66, and 68 by maltster mediated amplification. Papanicolaou smear specimen (specimen) CERVIX UTERI STRUCTURE / Unknown 04/13/2021 10:10 EDT 04/27/2021 8:44 EDT Maryanne Buckley PA-C MICROBIOLOGY - G ENERAL ORDERABLES [facility] [address] [place] [address] * PAP TEST (04/13/2021 10:10 EDT) Specimens A. Cervix and/or Endocervix , ThinPrep Imaging System with Manual Evaluation 04/30/2021 15:07 [facility] Specimen Adequacy Satisfactory for Evaluation - transformation zone component present 04/30/2021 15:07 [facility] General Categorization Negative for intraepithelial lesion or malignancy 04/30/2021 15:07 [facility] Attestation . 04/30/2021 15:07 [facility] at 1506 Clinical History See below 04/30/20 15:07 [facility] HPV The result for the Human Papillomavirus (HPV) Detection-High Risk Types is Negative. No E6 or E7 mRNA is detected from HPV types 16,18,31,33,35,39 ,45,51,52,56,58,5 9,66, and 68 by maltster mediated amplification.Michaela ting was performed on specimen [id number] and was resulted on 04/30/2021 1503 EDT by [facility]NO[facility], LAB INSTRUMENT RESULTS IN 04/30/2021 15:07 T [facility] Performing Lab [facility] 04/30/2021 15:07 T [facility] Scanned Images 04/30/2021 15:07 T [facility] Papanicolaou smear specimen (specimen) CERVIX UTERI STRUCTURE / Unknown 04/13/2021 10:10 EDT 04/17/2021 13:00 EDT Maryanne Buckley PA-C PATHOLOGY ORDERA MINDAS [facility] [address] [place] [address] documented in this encounter Visit Diagnoses Diagnosis Encounter for other general examination documented in this encounter Care Teams Housekeeping/Laundry Relationship Specialty Start Date End Date Maryanne Buckley PA-C PCP - General 05/09/14 documented as of this encounter
--- OUTSIDE RECORDS SUMMARY | 2024-07-06 12:03 | XMS_ITS | Encounter Summary ---
Author Organization [facility] Address [address] [place] [address] Care Team Providers Care Numerical Control Lathe Operator Name Role Phone Maryanne Buckley PA-C Primary Care Provider + Encounter Details Date Type Department Care Team (Late st Contact Info) Description 06/01/2024 Lab Requisition [facility] Pathology & Laboratory Medicine - [address] [address] Outr Resulting Lab, Provider Social History Tobacco [...] Diagnosis Comments TRANSFERRIN Routine 06/01/2024 12:10 EDT documented in this encounter Results * TRANSFERRIN (06/01/2024 12:10 EDT) Transferrin 249 201 - 352 mg/dL 06/02/2024 10:[address] [facility] Blood VENOUS BLOOD / Unknown 06/01/2024 12:10 EDT 06/01/2024 21:55 EDT Provider Outr Resulting Lab CHEMISTRY & BLOOD GAS ORDERABLES [facility] [address] [place] [address] documented in this encounter Visit Diagnoses Not on filedocumented in this encounter Care Teams Numerical Control Lathe Operator Relationship Specialty Start Date End Date Maryanne Buckley PA-C PCP - General 05/09/14 documented as of this encounter
--- OUTSIDE RECORDS SUMMARY | 2024-07-06 12:03 | XMS_ITS | Patient Health Record ---
Author Organization [facility] Address [address] [place] [address] Care Team Providers Care Athletic Training Internship Name Role Phone Rafael Gentile MD Unavailable [phone] ALLERGIES Allergen (clinical drug ingredient) Drug/Non Drug Allergy documented on EMR Reaction Allergy Type Onset Date Status Environmental (uncoded) unknown Allergy Active Steroids Steroids (uncoded) unknown Allergy A ctive ibuprofen Motrin IB unknown Drug Allergy Active REASON FOR REFERRAL No Information MEDICATIONS Medication SIG (Take, Route, Frequency, Duration) Notes Start Date End Date Status Abilify 5 mg 1 tab(s) orally once a day Active Lisinopril 5 mg 1 tab(s) orally once a day Active Xanax 0.25 mg 1 tab(s) orally 1-2 times PRN Not-Taking ZYRTEC 10 mg 1 tab(s) orally once a day STOP*please review for potential update for e-prescription and drug interaction check* Not-Taking PRILOSEC OTC 20 mg 1 tab(s) orally once a day STOP*please review for potential update for e-prescription and drug interaction check* Not-Taking Levothyroxine Sodium 75 mcg (0.075 mg) 1 tab(s) orally once a day Active Lexapro 20 mg 1.5 tab(s) orally once a day Active IMMUNIZATIONS Vaccine Route Administration Date Status Comme nts MANTOUX includes admin 60854 TD Transdermal 10/30/2017 Administered Weeks pre-employment SOCIAL HISTORY Sex Assigned At : Social History Observation Description Sex Assigned At Unknown PROBLEMS Problem Type ICD Code Onset Dates Problem Status W/U Status Risk SNOMED Code Notes Problem Pre-employment health screening examination (Z02.1) Active confirmed [id number] PLAN OF TREATMENT No Information Insurance Providers Payer Name Payer Address Payer Phone Subscriber Number Group Number Insured Name Patient Relationship to Insured Coverage Start Date Coverage End Date [place]ID [place] [employer] [place], [place] [id number] ADAM TOMAS Self - patient is the insured SELF [place] [id number] ADAM TOMAS Self - patient is the insured MEDICAL (GENERAL) HISTORY Medical History History ICD Code High blood pressure Depression Frequent headaches Surgical History Surgery Date(Month/Year) [facility] 2012
--- OUTSIDE RECORDS SUMMARY | 2024-07-06 12:03 | XMS_ITS | Encounter Summary ---
Author Organization [facility] Address [address] [place] [address] Care Team Providers Care Shell Plater Name Role Phone Maryanne Buckley PA-C Primary Care Provider + Encounter Details Date Type Department Care Team (Late st Contact Info) Description 04/21/2024 Lab Requisition [facility] Pathology & Laboratory Medicine - [address] [address] Britton Granado MD [address] [place] [address], [address] [place], [place] [id number] Unspecified abdominal pain Social History Tobacco Use Types Packs/Day Years [...] Procedure Name Priority Date/Time Associated Diagnosis Comments SURGICAL PATHOLOGY Today 04/21/2024 10 :33 EDT Unspecified abdominal pain documented in this encounter Results * SURGICAL PATHOLOGY (04/21/2024 10:33 EDT) Note to Patient The following pathology results have been interpreted by your pathologist and may be available to you before your health provider has had the opportunity to review them. Please allow time for your provider to receive these results and explore management options, if applicable. 04/23/2024 12:16 EDT [facility] Final Diagnosis A. DUODENUM, BIOPSY: - Enteric mucosa with features suggestive of peptic duodenitis. - Deeper levels examined. - See comment. B. STOMACH, ANTRUM, BIOPSY: - Antral-type mucosa with chemical (reactive) gastropathy. C. STOMACH, BODY, BIOPSY: - Oxyntic-type mucosa with no significant diagnostic abnormality. D. COLON, RANDOM, BIOPSY: - Colonic mucosa with no significant diagnostic abnormality. 04/23/2024 12:16 [facility] Diagnosis Comment The history of a duodenal mass is noted. If clinical concern for an unsampled lesion persist, re-biopsy may be considered. 04/23/2024 12:16 [facility] Attestation By the signature below, the attending physician certifies that they have 1) personally conducted a gross and/or microscopic examination of the described specimen(s), and/or personally interpreted the results of laboratory testing of the described specimen(s), and 2) personally rendered or confirmed the above diagnosis. 04/23/2024 12:16 [facility] at 1216 Clinical History Anemia and colitis, duodenal mass, diverticulosis 04/23/2024 12:16 [facility] Gross Description A. Received in [...] Kathy Cortez 04/22/2024 6:31 04/23/2024 12:16 EDT [facility] Performing Lab [facility] 04/23/2024 12:16 EDT [facility] Scanned Images 04/23/2024 12:16 EDT [facility] Tissue COLON STRUCTURE / Unknown 04/21/2024 10:33 EDT 04/21/2024 17:44 EDT Tissue specimen (specimen) STOMACH STRUCTURE / Unknown 04/21/2024 10:33 EDT 04/21/2024 17:44 EDT Tissue specimen (specimen) STOMACH STRUCTURE / Unknown 04/21/2024 10:33 EDT 04/21/2024 17:44 EDT Tissue specimen (specimen) COLON STRUCTURE / Unknown 04/21/2024 10:33 EDT 04/21/2024 17:44 EDT Britton Granado MD PATHOLOGY ORDERABLES [facility] [address] [place] [id number] documented in this encounter Visit Diagnoses Diagnosis Unspecified abdominal pain documented in this encounter Care Teams Shell Plater Relationship Specialty Start Date End Date Maryanne Buckley PA-C PCP - General 05/09/14 documented as of this encounter
--- OUTSIDE RECORDS SUMMARY | 2024-07-06 12:03 | XMS_ITS | Continuity of Care Document ---
Author Organization [facility] Address [address] [place] [phone] Care Team Providers Care Damper Worker Name Role Phone KESHIA GOLDBERG PA-C Primary Care Phdianna dickson Encounter LTTL_AK FIN NBR [id number] Date(s): 11/27/22 - 11/27/[address] [address]- [place] Discharge Disposition: Home or Self Care Attending Physician: KESHIA GOLDBERG PA-C Admitting Physician: KESHIA GOLDBERG PA-C Referring Physician: KESHIA OGLDBERG PA-C Allergies, Adverse Reactions, Alerts Substance Reaction [...] hr, # 30 tab, 0 Refill(s), Pharmacy: [facility] Start Date: 11/11/22 Stop Date: [...] 0 Refill(s) Start Date: 11/11/22 Status: Ordered Results Radiology Reports * Exam Date Time Procedure Performing Provider Status 11/27/22 9:39 AM MG Mammo Screening Bilateral Gianna Soares; Auth (Verified) Notes: (MG Mammo Screening Bilateral) Reason For Exam: screening MG Mammo Screening Bilateral EXAM DESCRIPTION: MG Mammo Screening Bilateral 11/27/2022 INDICATION: SCREENING COMPARISON: 07/27/2019 and 07/25/2017 BREAST DENSITY: The breasts are heterogeneously dense which may obscure small masses. FINDINGS: MLO and CC views were performed with digital breast tomosynthesis. Images were reviewed using computer aided detection. No asymmetry, architectural distortion or suspicious grouping of calcifications to suggest malignancy in either breast. ASSESSMENT: No mammographic evidence of malignancy. Negative. BI-RADS category 1. RECOMMENDATION: Screening mammography in 1 year JOB #: [id number] Final Signed by: Yves Wade MD Signed (Electronic Signature): 11/27/2022 9:59 am Social History Social History Type Response Tobacco Never tobacco user T obacco Use:. Sex MG Breast - bilateral Screening * Yves Wade MD: VERIFY, VERIFY Event Display: Report EXAM DESCRIPTION: MG Mammo Screening Bilateral 11/27/2022 INDICATION: SCREENING COMPARISON: 07/27/2019 and 07/25/2017 BREAST DENSITY: The breasts are heterogeneously dense which may obscure small masses. FINDINGS: MLO and CC views were performed with digital breast tomosynthesis. Images were reviewed using computer aided detection. No asymmetry, architectural distortion or suspicious grouping of calcifications to suggest malignancy in either breast. ASSESSMENT: No mammographic evidence of malignancy. Negative. BI-RADS category 1. RECOMMENDATION: Screening mammography in 1 year JOB #: [id number] Final Signed by: Yves Wade MD Signed (Electronic Signature): 11/27/2022 9:59 am Patient Care team information Care Team Personnel Name: KESHIA GOLDBERG PA-C Position: No Access Member Role: Primary Care Physician Address: Address: [address] Care Team Related Persons Name: ZAHIRA SANTILLAN
--- OUTSIDE RECORDS SUMMARY | 2024-07-06 12:04 | XMS_ITS | Encounter Summary ---
Author Organization [facility] Address [address] [place] [address] Care Team Providers Care Intermediate Frame Tender Name Role Phone Unknown, Provider Primary Care Provider Encounter Details Date Type Department Care Team (Late st Contact Info) Description 05/04/2014 Results Only [facility] Laboratory Services - [place] [facility] ([facility]) [address] [place] [id number] Sivan Gibbs, RESPIRATORY ASSISTANT Social History Tobacco Use Types Packs/Day Years Used Date Smoking Tobacco: Never Assessed Sex and Gender Information Value Date Recorded Sex Assigned at Not on file Gender Identity Not on file Sexual Orientation Not on file documented as of this encounter Plan of Treatment Not on file documented as of this encounter Procedures Procedure Name Priority Date/Time Associated Diagnosis Comments SURGICAL PATHOLOGY Routine 05/04/2014 9:18 EDT documented in this encounter Results * SURGICAL PATHOLOGY (05/04/2014 9:18 EDT) Pathology Report: SURGICAL PATHOLOGY REPORT Reports generated via electronic interface contain original data; however they are lacking the format of the original report. Caution should be taken when reading/interpreti ng unformatted reports. Name: ? ADAM CARVER ? Accession #: ? [id number] ? : ? 1970 (Age: 43) ??F ? Collect Date: ? 05/04/2014 ? Location: ? [facility] ? Receive Date: ? 05/05/2014 ? Provider: SIVAN GIBBS RESPIRATORY ASSISTANT Copy to: KESHIA NELSON ? Final Pathologic Diagnosis: A. ENDOMETRIUM, BIOPSY: - Proliferative endometrium. - No cytologic atypia. - Fragment of endocervical polyp. B. CERVIX, POLYP, POLYPECTOMY: - Endocervical polyp. - No dysplasia identified. Document reviewed and electronically signed by: NEO MORALES MD Report ??Date: 05/09/2014 14:32 By the signature above, the attending physician certifies that he/she has personally conducted a gross and/or microscopic examination of the described specimens and rendered or confirmed the above diagnosis. Specimen(s) Received: A. ?Endometrial bx B. ? Cervical polyp Clinical History: Dysmenorrhea; cervical polyp Gross Description: A. ?Received in formalin labelled with proper patient identification (initials S, K) and endometrial bx is an aggregate of red-brown hemorrhagic and clear mucinous material and rod tissue (2.6 x 2.1 x 0.7 cm). Submitted in toto in A1 and A2 following filtration. B. ?Received in formalin labelled with proper patient identification (initials S, K) and cervical polyp is an aggregate of rod and clear mucinous material and rod tissue (2.2 x 1.9 x 0.4 cm). Submitted in toto in B1 and B2 following filtration. Sherrie Almaraz 05/05/2014 10:04 AM End of Report [facility] 05/04/2014 9:18 EDT 05/05/2014 9:18 EDT Sivan Gibbs NP PATHOLOGY ORDERABLES Performing Organization Address City/State/[facility] Co de Phone Number [facility] [address] [place] [address] documented in this encounter Visit Diagnoses Not on filedocumented in this encounter Care Teams Intermediate Frame Tender Relationship Specialty Start Date End Date Unknown, Provider, PCP - General 03/11/13 05/08/14 documented as of this encounter
--- OUTSIDE RECORDS SUMMARY | 2024-07-06 12:04 | XMS_ITS | Encounter Summary ---
Author Organization [facility] Address [address] [place] [address] Care Team Providers Care Radiologic Technology Program Director Name Role Phone Maryanne Buckley PA-C Primary Care Provider + Encounter Details Date Type Department Care Team (Late st Contact Info) Description 01/22/2021 Lab Requisition [facility] Pathology & Laboratory Medicine - [address] [address] Outr Resulting Lab, Provider Social History Tobacco [...] Procedure Name Priority Date/Time Associated Diagnosis Comments HOLD SST Today 01/22/2021 13:59 EDT HOLD SST Today 01/22/2021 13:59 EDT HOLD SST Today 01/22/2021 13:59 EDT MEASLES IGG AB Today 01/22/2021 13:59 EDT RUBELLA IGG ANTIBODY Today 01/22/2021 13:59 EDT HEPATITIS B SURFACE ANTIBODY Today 01/22/2021 13:59 EDT VARICELLA IGG ANTIBODY Today 01/22/2021 13:59 EDT MUMPS ANTIBODY IGG Today 01/22/2021 13 :59 EDT documented in this encounter Results * HOLD SST (01/22/2021 13:59 EDT) Hold Hold 01/22/2021 22:31 EDT [facility] Blood VENOUS BLOOD / Unknown 01/22/2021 13:59 EDT 01/22/2021 21:23 EDT Provider Outr Resulting Lab LAB INFO SER VICE AND SUPPORT & PHONE RESULT Performing Organization Address City/[facility]/ZIP Co de Phone Number [facility] [address] [place] [address] * HOLD SST (01/22/2021 13:59 EDT) Hold Hold 01/22/2021 22:31 EDT [facility] Blood VENOUS BLOOD / Unknown 01/22/2021 13:59 EDT 01/22/2021 21:23 EDT Provider Outr Resulting Lab LAB INFO SER VICE AND SUPPORT & PHONE RESULT Performing Organization Address [facility]/ZIP Co de Phone Number [facility] [address] [place] [address] * HOLD SST (01/22/2021 13:59 EDT) Hold Hold 01/22/2021 22:31 EDT [facility] Blood VENOUS BLOOD / Unknown 01/22/2021 13:59 EDT 01/22/2021 21:23 EDT Provider Outr Resulting Lab LAB INFO SER VICE AND SUPPORT & PHONE RESULT Performing Organization Address [facility]/ZIP Co de Phone Number [facility] [address] [place] [address] * HEPATITIS B SURFACE ANTIBODY (01/22/2021 13:59 EDT) Hep B Surface Ab, Quantitative 113.1 See Note mIU/mL 01/23/2021 10:39 EDT [facility] Comment: Reference Range for Hep B Surface Ab, Quant: Positive: >= 10.0 mIU/mL Negative: ??< 10.0 mIU/mL Patient is presumed to be immune to infection with Hepatitis B Virus. Hep B Surface Ab, Qualitative Positive See Note 01/23/2021 10:39 EDT [facility] Comment: Reference Range for Hep B Surface Ab, Qual: Unvaccinated: ??Negative Vaccinated: ??Positive Blood VENOUS BLOOD / Unknown 01/22/2021 13:59 EDT 01/22/2021 21:17 EDT Provider Outr Resulting Lab CHEMISTRY & BLOOD GAS ORDERABLES Performing Organization Address [facility] Co de Phone Number [facility] [address] [place] [address] * MEASLES IGG AB (01/22/2021 13:59 EDT) Measles IgG Ab Positive See Note 01/23/2021 10:29 EDT [facility] Comment:Presence of detectab le measles virus IgG antibodies. Blood VENOUS BLOOD / Unknown 01/22/2021 13:59 EDT 01/22/2021 21:17 EDT Provider Outr Resulting Lab IMMUNOLOGY A ND SEROLOGY ORDERABLES Performing Organization Address [facility] Co de Phone Number [facility] [address] [place] [address] * VARICELLA IGG ANTIBODY (01/22/2021 13:59 EDT) Varicella IgG Ab Positive See Note 01/23/2021 10:29 EDT [facility] Comment:Presence of detectab le Varicella Zoster virus IgG antibodies. Blood VENOUS BLOOD / Unknown 01/22/2021 13:59 EDT 01/22/2021 21:17 EDT Provider Outr Resulting Lab IMMUNOLOGY A ND SEROLOGY ORDERABLES Performing Organization Address [facility]/ZIP Co de Phone Number [facility] [address] [place] [address] * MUMPS ANTIBODY IGG (01/22/2021 13:59 EDT) Mumps Antibody IgG Positive See Note 01/23/2021 10:30 EDT [facility] Comment:Presence of detectab le mumps virus IgG antibodies. Blood VENOUS BLOOD / Unknown 01/22/2021 13:59 EDT 01/22/2021 21:17 EDT Provider Outr Resulting Lab IMMUNOLOGY A ND SEROLOGY ORDERABLES Performing Organization Address [facility] Co de Phone Number [facility] [address] [place] [address] * RUBELLA IGG ANTIBODY (01/22/2021 13:59 EDT) Rubella IgG Ab Positive See Note 01/23/2021 10:30 EDT [facility] Comment:Positive for IgG ant ibodies to Rubella virus. Blood VENOUS BLOOD / Unknown 01/22/2021 13:59 EDT 01/22/2021 21:17 EDT Provider Outr Resulting Lab CHEMISTRY & BLOOD GAS ORDERABLES Performing Organization Address [facility] Co de Phone Number [facility] [address] [place] [address] documented in this encounter Visit Diagnoses Not on filedocumented in this encounter Care Teams Radiologic Technology Program Director Relationship Specialty Start Date End Date Maryanne Buckley PA-C PCP - General 05/09/14 documented as of this encounter
--- OUTSIDE RECORDS SUMMARY | 2024-07-06 12:04 | XMS_ITS | Encounter Summary ---
Author Organization [facility] Address [address] [place] [address] Care Team Providers Care Evaluation Analyst Name Role Phone Maryanne Buckley PA-C Primary Care Provider + Encounter Details Date Type Department Care Team (Latest Contact Info) Description 05/09/2014 9:33 EDT - 05/09/2014 23:59 EDT Hospital Encounter [address] [address] Unknown, Provider, Discharge Disposition: Home or Self Care Social History Tobacco Use Types Packs/Day Years Used Date Smoking Tobacco: Never Assessed Sex and Gender Information Value Date Recorded Sex Assigned at Not on file Gender Identity Not on file Sexual Orientation Not on file documented as of this encounter Discharge Disposition Disposition Code Departure Means Destination Home or Self Retirement documented in this encounter Plan of Treatment Not on file documented as of this encounter Visit Diagnoses Not on filedocumented in this encounter Care Teams Evaluation Analyst Relationship Specialty Start Date End Date Maryanne uBckley PA-C PCP - General 05/09/14 documented as of this encounter
--- OUTSIDE RECORDS SUMMARY | 2024-07-06 12:04 | XMS_ITS | Encounter Summary ---
Author Organization [facility] [place] [place] [address] Care Team Providers Care Safekeeping Clerk Name Role Phone Unknown Primary Care Provider Unavailabl e Encounter Details Date Type Department Care Team (Late st Contact Info) Description 03/17/2024 8:05 PM EDT Ancillary Procedure Radiology Library at [facility] [place] [phone] Tam Ritchie MD [facility] [place] [place] [address] Social History Tobacco Use Types Packs/Day Years Used Date Smoking Tobacco: Never Smokeless Tobacco: Never Alcohol Use Standard Drinks/Week Comments Not Currently 0 (1 standard drink = 0.6 oz pur e alcohol) Rarely Sex and Gender Information Value Date Recorded Sex Assigned at Not on file Gender Identity Not on file Sexual Orientation Not on file documented as of this encounter Plan of Treatment Upcoming Encounters Date Type Department Care Team (Latest Contact Info) Description 07/20/2024 3:45 PM EDT Hospital Encounter [place] [phone] Wero Church MD [facility] [place] [address] 07/20/2024 3:45 PM EDT - 07/20/2024 4:45 PM EDT Surgery [place] [phone] Wero Church MD [facility] [place] [address] EGD, UPPER GI ENDOSCOPY (WRVU 2.09) Scheduled Procedures Name Priority Associated Diagnoses Date/Ti me EGD, UPPER GI ENDOSCOPY (WRVU 2.09) EGD/EUS +/- dilation of duodenal stricture. 60 minutes, in about 4 weeks 07/20/2024 3:45 PM EDT UPPER EUS- ENDOSCOPIC ULTRASOUND (WRVU 3.47) EGD/EUS +/- dilation of duodenal stricture. 60 minutes, in about 4 weeks 07/20/2024 3:45 PM EDT documented as of this encounter Procedures Procedure Name Priority Date/Time Associated Diagnosis Comments FILM LIBRARY STORAGE ONLY MR HEAD AND SPINE Routine 03/17/2024 7:57 PM EDT documented in this encounter Results * Film Library- Storage Only MR Head and Spine (03/17/2024 7:57 PM EDT) Narrative [facility] - 03/17/2024 7:57 PM EDT This exam is auto-finalizing. It's purpose is for storage only. Tam Ritchie MD IMG FILM LIBRARY ORD ERABLES [place], [place] documented in this encounter Visit Diagnoses Not on filedocumented in this encounter Care Teams Safekeeping Clerk Relationship Specialty Start Date End Date Unknown None PCP - General 05/17/20 04/04/24 documented as of this encounter
--- OUTSIDE RECORDS SUMMARY | 2024-07-06 12:04 | XMS_ITS | Encounter Summary ---
Author Organization [facility] Address [address] [place] [address] Care Team Providers Care Novelty Candy Maker Name Role Phone Unknown, Provider Primary Care Provider [phone] Encounter Details Date Type Department Care Team (Late st Contact Info) Description 03/10/2013 Results Only [facility] Laboratory Services - [facility] [address] [place] [address] Keshia Buckley PA-C [address] [place] [phone] Social History Tobacco Use Types Packs/Day Years Used Date Smoking Tobacco: Never Assessed Sex and Gender Information Value Date Recorded Sex Assigned at Not on file Gender Identity Not on file Sexual Orientation Not on file documented as of this encounter Plan of Treatment Not on file documented as of this encounter Procedures Procedure Name Priority Date/Time Associated Diagnosis Comments PAP TEST- RESULT ONLY Routine 03/10/2013 0:00 EDT documented in this encounter Results * PAP TEST- RESULT ONLY (03/10/2013 0:00 EDT) Pathology Report: CYTOPATHOLOGY REPORT Reports generated via electronic interface contain original data; however they are lacking the format of the original report. Caution should be taken when reading/interpreti ng unformatted reports. Name: ? ADAM CARVER ? Accession #: ? [id number] ? : ? 1970 (Age: 42) ??F ?Collect Date: ? 03/10/2013 ? Location: ? [facility] ? Receive Date: ? 03/11/2013 ? Provider: KESHIA NELSON Copy to: ? Final Report SPECIMEN ADEQUACY ? Satisfactory for Evaluation - transformation zone component present GENERAL CATEGORIZATION ? Other, see interpretation INTERPRETATION ? Endometrial cells present in a woman equal to or greater than age 40. Negative for Intraepithelial Lesion. EDUCATIONAL NOTES/RECOMMENDATI ONS ? Benign appearing endometrial cells on Pap tests are usually a normal finding in women with regular menstrual cycles, especially if the Pap test was collected during the first half of the menstrual cycle. There is data showing that endometrial cells on Pap tests may be associated with endometrial/uterin e abnormalities in post menopausal women or in perimenopausal women with abnormal bleeding. There is limited data on the significance of benign endometrial cells in post menopausal women on HRT. ??Clinical correlation is recommended. Note: ??The Pap test is not an accurate test for the screening of endometrial lesions and should not be used as a follow up in patients with clinical suspicion of endometrial pathology. Last Menstrual Period: 03/01/13 Specimen/Source: ??Pap Test, Cervix/Endocervix, ThinPrep Imaging System with manual evaluation Document reviewed and electronically signed by: ? SEAN Sauceda(ASCP) ? Report ??Date: 03/17/2013 14:40 HPV with Pap Test ? Date Ordered: ? 03/17/2013 ? Status: ?? Signed Out ?Date Complete: ? 03/19/2013 ? By: ??System Interface ? Date Reported: ? 03/19/2013 ? Interpretation RESULT: Negative for HPV. No E6 or E7 mRNA is detected from HPV types 16,18,31,33,35, 39,45,51,52,56,58, 59,66, and 68 by retail district manager mediated amplification. Comments Document reviewed and electronically signed by: ? System Interface ? Report date: 03/19/2013 By the signature above, the attending physician certifies that he/she has personally conducted a gross and/or microscopic examination of the described specimens and rendered or confirmed the above diagnosis. End of Report [facility] 03/10/2013 03/11/2013 Keshia Buckley PA-C PATHOLOGY ORDERA GAURAV [facility] [address] [place] [address] documented in this encounter Visit Diagnoses Not on filedocumented in this encounter Care Teams Novelty Candy Maker Relationship Specialty Start Date End Date Unknown, Provider, PCP - General 03/11/13 05/08/14 documented as of this encounter
--- OUTSIDE RECORDS SUMMARY | 2024-07-06 12:04 | XMS_ITS | Encounter Summary ---
Author Organization [facility] [place] [address] Care Team Providers Care Lockstitcher Name Role Phone Unknown Primary Care Provider Unavailabl e Reason for Visit * Reason Onset Date Comments Referral 03/19/2024 Appointment 03/19/2024 Encounter Details Date Type Department Care Team (Late st Contact Info) Description 03/19/2024 [place] [phone] Lexi Ribera MD [facility] [place] [address] Referral; Appointment Social History Tobacco Use Types Packs/Day Years Used Date Smoking Tobacco: Never Smokeless Tobacco: Never Alcohol Use Standard Drinks/Week Comments Not Currently 0 (1 standard drink = 0.6 oz pur e alcohol) Rarely Sex and Gender Information Value Date Recorded Sex Assigned at Not on file Gender Identity Not on file Sexual Orientation Not on file documented as of this encounter Miscellaneous Notes * Telephone Encounter - Analilia Leone - 03/22/2024 10:50 AM EDT Pt is scheduled on 03/23 for [facility] video New with Dr. Escalante. No updated MRI C spine was needed per Dr. Escalante. No appt card needed Closing encounter * Telephone Encounter - Yves Scherer - 03/22/2024 10:28 AM EDT Patient called in response to vm, this agent offered to schedule new patient appointment per previous notes. Patient declined to schedule, stated she was not aware that she would be needing to see the neurosurgery department, and said that no one has notified her as to why she would be seeing a provider here. Patient asked for a call back to discuss why she should be scheduling appointment. * Telephone Encounter - Analilia Leone - 03/22/2024 10:02 AM EDT Spoke to the patient. Patient is going to call back to schedule. Had another call come in. [facility] Scheduling Instructions Provider: Anthony Escalante MD Visit Type: NEW Appt Notes (copy entirely): NEW, F/u intradural, extramedullary upper C-spine mass, MRI C spine +/- prior Imaging appt needed?: MRI [facility] to ask patient Screening Questions? Yes (DOES NOT APPLY TO XRAY) [facility] to coordinate same day appt with Radiology? No (DOES NOT APPLY TO XRAY) Additional Info Needed: Schedule on/around 04/01-04/15, please inform patient if their insurance requires a referral please have their PCP fax a referral. Update this encounter when patient calls back. * Telephone Encounter - Rosa Jhaveri Wolfgang - 03/19/2024 3:49 PM EDT [facility] Scheduling Instructions Provider: Anthony Escalante MD Visit Type: NEW Appt Notes (copy entirely): NEW, F/u intradural, extramedullary upper C-spine mass, MRI Imaging appt needed?: MRI [facility] to ask patient Screening Questions? Yes (DOES NOT APPLY TO XRAY) [facility] to coordinate same day appt with Radiology? No (DOES NOT APPLY TO XRAY) Additional Info Needed: Schedule on/around 04/01-04/15, please inform patient if their insurance requires a referral please have their PCP fax a referral. Update this encounter when patient calls back. ~~~~~~~~~~~~~~~~~~~~~~~~~~~~~~~~ Jaclyn Carver - 03/17/24 Anthony Escalante MD Sent: FriMarch 18, 2024 7:38 AM To: P [facility] Neurosurgery [place] [employer] Lieutenant Message I should see the pt (not SHAKEEL) in next couple weeks. Jaclyn Hermosillo - 03/17/24 Lexi Ribera MD Sent: FriMarch 17, 2024 9:21 PM To: P [facility] Neurosurgery [employer] Lieutenant Message Hello, Please help me schedule a follow up appointment as per below. ID: Jaclyn Carver, 53 y.o. female, Contact info: see epic Reason: F/u intradural, extramedullary upper C-spine mass Provider: Advanced Practice Provider (ADVERTISING ACCOUNT EXECUTIVE or PA) Timeframe: 1 month Imaging: MRI CSP wwo contrast (ordered) Thank you, Lexi Ribera MD 03/17/2024 9:21 PM documented in this encounter Plan of Treatment Upcoming Encounters Date Type Department Care Team (Latest Contact Info) Description 07/20/2024 3:45 PM EDT Hospital Encounter [place] [phone] Wero Church MD [facility] [place] [address] 07/20/2024 3:45 PM EDT - 07/20/2024 4:45 PM EDT [place] [phone] Wero Church MD [facility] [place] [address] EGD, UPPER GI ENDOSCOPY (WRVU 2.09) Scheduled Procedures Name Priority Associated Diagnoses Date/Ti me EGD, UPPER GI ENDOSCOPY (WRVU 2.09) EGD/EUS +/- dilation of duodenal stricture. 60 minutes, in about 4 weeks 07/20/2024 3:45 PM EDT UPPER EUS- ENDOSCOPIC ULTRASOUND (WRVU 3.47) EGD/EUS +/- dilation of duodenal stricture. 60 minutes, in about 4 weeks 07/20/2024 3:45 PM EDT documented as of this encounter Visit Diagnoses Not on filedocumented in this encounter Care Teams Lockstitcher Relationship Specialty Start Date End Date Unknown None PCP - General 05/17/20 04/04/24 documented as of this encounter
--- OUTSIDE RECORDS SUMMARY | 2024-07-06 12:04 | XMS_ITS | Encounter Summary ---
Author Organization [facility] Address [address] [place] [address] Care Team Providers Care Caser Up Name Role Phone Unknown, Provider Primary Care Provider [phone] Encounter Details Date Type Department Care Team (Late st Contact Info) Description 02/16/2014 Results Only [facility] [phone] Lexy Marinelli, DO [address] [place] [address] Social History Tobacco Use Types Packs/Day Years Used Date Smoking Tobacco: Never Assessed Sex and Gender Information Value Date Recorded Sex Assigned at Not on file Gender Identity Not on file Sexual Orientation Not on file documented as of this encounter Plan of Treatment Not on file documented as of this encounter Procedures Procedure Name Priority Date/Time Associated Diagnosis Comments SURGICAL PATHOLOGY Routine 02/16/2014 20 :39 EDT documented in this encounter Results * SURGICAL PATHOLOGY (02/16/2014 20:39 EDT) Pathology Report: SURGICAL PATHOLOGY REPORT Reports generated via electronic interface contain original data; however they are lacking the format of the original report. Caution should be taken when reading/interpreti ng unformatted reports. Name: ? ADAM CARVER ? Accession #: ? [id number] ? : ? 1970 (Age: 43) ??F ? Collect Date: ? 02/16/2014 ? Location: ? [facility] ? Receive Date: ? 02/16/2014 ? Provider: LEXY MARINELLI DO Copy to: KESHIA NELSON ? Final Pathologic Diagnosis: GALLBLADDER, CHOLECYSTECTOMY: - ??Gallbladder with no specific pathologic features. - ??Resection margin viable. Document reviewed and electronically signed by: OTONIEL PATEL MD Report ??Date: 02/22/2014 12:41 By the signature above, the attending physician certifies that he/she has personally conducted a gross and/or microscopic examination of the described specimens and rendered or confirmed the above diagnosis. Specimen(s) Received: Gallbladder Clinical History: Biliary colic Gross Description: ? Received formalin labelled with proper patient identification (initials S., K) and gallbladder is an intact gallbladder (10.0 x 3.1 x 2.9 cm) with an attached segment of cystic duct (0.4 cm in length x 0.2 cm in diameter). ? The serosa is rod-green and smooth. The mucosa is green-yellow and velvety and the wall ranges from 0.1 cm-0.2 cm in thickness. The cystic duct lumen is patent. The cystic duct margin is inked black. ? Two sales representative printing sections and the inked en face cystic duct margin are submitted in 1. Dr. Gomez 02/17/2014 03:07 PM End of Report [facility] 02/16/2014 20:3 9 EDT 02/16/2014 20:39 EDT Lexy Marinelli DO PATHOLOGY ORDERABLES [facility] [address] [place] [address] documented in this encounter Visit Diagnoses Not on filedocumented in this encounter Care Teams Caser Up Relationship Specialty Start Date End Date Unknown, Provider, PCP - General 03/11/13 05/08/14 documented as of this encounter
--- OUTSIDE RECORDS SUMMARY | 2024-07-06 12:04 | XMS_ITS | Encounter Summary ---
Author Organization [facility] Address [facility] [place] [address] Care Team Providers Care Database Marketing Specialist Name Role Phone Maryanne Buckley Primary Care Provider [phone] Encounter Details Date Type Department Care Team (Late st Contact Info) Description 10/30/2019 Telephone [place] [phone] Fox Martin MD [facility] [place] [address] Social History Tobacco Use Types Packs/Day Years Used Date Smoking Tobacco: Never Assessed Sex and Gender Information Value Date Recorded Sex Assigned at Not on file Gender Identity Not on file Sexual Orientation Not on file documented as of this encounter Miscellaneous Notes * Telephone Encounter - Fox Martin MD - 10/30/2019 9:58 PM EST Ms. Carver is a 49-year-old female with a history of peptic ulcer disease, GI bleed, GERD, anxiety,and a family history of early coronary disease who is presenting 2 weeks emergency department with 1 week of stuttering epigastric pain which has been worsening. Slightly different than her prior GERD. She denies any shortness of breath or exertional symptoms. Denied melena or GI bleeding. She has not had any nausea vomiting. Pain does not radiate. She was given IV morphine in the ED with near resolution of pain. EKG notable for LVH with repolarization changes nonspecific ST and T wave changes cannot exclude ischemia. Troponin returned positive at 0.10, with an upper limit of normal of 0.03. Following this she was given full dose aspirin 600 of Plavix she is yet to receive heparin or nitroglycerin. Vital signs currently 144/79 heart rate of 78 down from 100 initially saturating well on room air afebrile. Exam reportedly unremarkable without tenderness to palpation of epigastrium. Lipase pending. LFT's unremarkable. 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 Accepted as a transfer for NSTEMI. Recommended initiation of heparin for ACS. Recommended trial of SL NTG if pain returns. Fox Martin MD Solutions Analyst. documented in this encounter Plan of Treatment Upcoming Encounters Date Type Department Care Team (Latest Contact Info) Description 07/20/2024 3:45 PM EDT Hospital Encounter [place] [address] Wero Church MD [facility] [place] [address] 07/20/2024 3:45 PM EDT - 07/20/2024 4:45 PM EDT Surgery [place] [address] Wero Church MD [facility] [place] [address] EGD, UPPER GI ENDOSCOPY (WRVU 2.09) Scheduled Procedures Name Priority Associated Diagnoses Date/Ti nh EGD, UPPER GI ENDOSCOPY (WRVU 2.09) EGD/EUS +/- dilation of duodenal stricture. 60 minutes, in about 4 weeks 07/20/2024 3:45 PM EDT UPPER EUS- ENDOSCOPIC ULTRASOUND (WRVU 3.47) EGD/EUS +/- dilation of duodenal stricture. 60 minutes, in about 4 weeks 07/20/2024 3:45 PM EDT documented as of this encounter Visit Diagnoses Not on filedocumented in this encounter Care Teams Database Marketing Specialist Relationship Specialty Start Date End Date Maryanne Buckley PA [address] [place] [address] PCP - General Family Medicine 09/29/19 05/16/20 documented as of this encounter
--- OUTSIDE RECORDS SUMMARY | 2024-07-06 12:04 | XMS_ITS | Encounter Summary ---
Author Organization [facility] Address [address] [place] [address] Care Team Providers Care Casualty Underwriter Name Role Phone Marcio Keshia Torres PA-C Primary Care Provider + Encounter Details Date Type Department Care Team (Late st Contact Info) Description 07/10/2017 Results Only [facility] [phone] Darnell Davidson MD [address] [place] [address] Social History Tobacco Use Types Packs/Day Years Used Date Smoking Tobacco: Never Assessed Sex and Gender Information Value Date Recorded Sex Assigned at Not on file Gender Identity Not on file Sexual Orientation Not on file documented as of this encounter Plan of Treatment Not on file documented as of this encounter Procedures Procedure Name Priority Date/Time Associated Diagnosis Comments SURGICAL PATHOLOGY Routine 07/10/2017 17 :23 EDT documented in this encounter Results * SURGICAL PATHOLOGY (07/10/2017 17:23 EDT) Pathology Report: SURGICAL PATHOLOGY REPORT Reports generated via electronic interface contain original data; however they are lacking the format of the original report. Caution should be taken when reading/interpreting unformatted reports. Name: ? ADAM CARVER ? Accession #: ? [id number] ? : ? 1970 (Age: 46) ??F ? Collect Date: ? 07/10/2017 ? Location: ? [facility] ? Receive Date: ? 07/10/2017 ? Provider: DARNELL DAVIDSON MD Copy to: KESHIA GOLDBERG PA-C ? Final Pathologic Diagnosis: ENDOMETRIUM, CURETTAGE: - Proliferative endometrium with focal disordered glandular pattern. - Fragments of benign myometrial tissue. - Benign endocervical tissue. Comment: This case has been presented and reviewed at the intradepartmental consultation conference for the confirmation of basalis layer blood vasculature. Document reviewed and electronically signed by: Aleena Cordova MD Report ??Date: 07/15/2017 07:01 By the signature above, the attending physician certifies that he/she has personally conducted a gross and/or microscopic examination of the described specimens and rendered or confirmed the above diagnosis. Specimen(s) Received: Endometrial curettings and fibroid Clinical History: DUB, LMP: 1 week; clinical diagnosis code: N92.0 Gross Description: ? Received in formalin labelled with proper patient identification (initials S, K) and endometrial curettings and fibroid is an aggregate of white tissues admixed with clear mucinous material and clotted blood (3.5 x 2.4 x 0.8 cm). Submitted in toto in [address] Montemayor 07/11/2017 7:57 AM End of Report [facility] 07/10/2017 17:2 3 EDT 07/10/2017 17:23 EDT Darnell Davidson MD PATHOLOGY ORDERABLES [facility] [address] [place] [address] documented in this encounter Visit Diagnoses Not on filedocumented in this encounter Care Teams Casualty Underwriter Relationship Specialty Start Date End Date Keshia Goldberg PA-C PCP - General 05/09/14 documented as of this encounter
--- OUTSIDE RECORDS SUMMARY | 2024-07-06 12:04 | XMS_ITS | Encounter Summary ---
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 Name Role Phone Maryanne Buckley Primary Care Provider [phone] Reason for Visit * Auth/Cert Specialty Diagnoses / Procedures Referred By Contac t Referred To Contact Diagnoses NSTEMI (non-ST elevated myocardial infarction) postive troponin Procedures EMERGENCY IPI Referral ID Status Reason Start Date Expiration Date Visits Re quested Visits Authorized [id number] 1 1 Encounter Details Date Type Department Care Team (Latest Contact Info) Description 10/31/2019 10:26 AM EST - 11/01/2019 5:50 PM EST Hospital Encounter Card[facility] [place] [address] Mk Tate MD [facility] [place] [address] Asa Wiseman MD [facility] [place] [address] Non-ST elevation myocardial infarction (NSTEMI) Discharge Disposition: Home Social History Tobacco Use Types Packs/Day Years Used Date Smoking Tobacco: Never Smokeless Tobacco: Never Alcohol Use Standard Drinks/Week Comments Not Currently 0 (1 standard drink = 0.6 oz pur e alcohol) Rarely Sex and Gender Information Value Date Recorded Sex Assigned at Not on file Gender Identity Not on file Sexual Orientation Not on file documented as of this encounter Last Filed Vital Signs Vital Sign Reading Time Taken Comments Blood Pressure 102/64 11/01/2019 4:40 PM EST Pulse 58 11/01/2019 4:40 PM EST Temperature 36.9 ??C (98.4 ??F) 11/01/2019 4:40 PM ES T Respiratory Rate 17 11/01/2019 4:40 PM EST Oxygen Saturation 98% 11/01/2019 4:40 PM EST Inhaled Oxygen Concentration - - Weight 63.2 kg (139 lb 5.3 oz) 11/01/2019 6:05 A M EST Height 162.6 cm (5' 4) 10/31/2019 9:00 AM EST Body Mass Index 23.92 10/31/2019 9:00 AM EST documented in this encounter Discharge Summaries * Asa Wiseman MD - 11/01/2019 3:03 PM EST Discharge Summary Patient Name: Jaclyn Carver Patient Age: 49 y.o. Language: Swedish Race: White Ethnicity: Not nor Admit date: 10/31/2019 Discharge date and time: 11/01/2019 Attending Physician: Asa Wiseman MD Discharge Physician: Dr. Wiseman Follow-up Recommendations for Providers: Patient may return to work on 11/08/2019 Lipitor 40 mg PO daily is new and ASA 81 mg PO daily is new Inpatient Provider Contact Information: Dr. Ivone Hagen PA-C Discharge Diagnoses (Hospital Problems) and Secondary Diagnoses (Chronic Problems): Active Hospital Problems Diagnosis ??? NSTEMI (non-ST elevated myocardial infarction) Resolved Hospital Problems No resolved problems to display. There are no active non-hospital problems to display for this patient. Operations/Major Procedures: 11/01/2019 SUMMARY: ?? 1. Borderline concentric left ventricular hypertrophy is observed. Global left ventricular systolic function appears hyperdynamic. Ejection fraction is estimated to be 75%. There are no left ventricular segmental wall motion abnormalities. 2. The right ventricle is normal in size. Right ventricular global systolic function is normal. 3. No significant valvular abnormalities. 4. See remainder of report for additional findings. ?? Procedure(s): CARDIAC CATHETERIZATION Cardiac Cath 11/01/2019 Hemodynamics: Left Heart Pressures Resting: Syst Diast EDP a v m Ao 120 71 92 LV 124 13 Coronary Angiography: Dominance: Left Left Main The left main was normal, free of disease. Left Anterior Descending There was mild diffuse (<=25% stenosis) disease of the proximal segment of the left anterior descending artery (LAD) and it was calcified. The LAD was moderate in size. The mid segment of the LAD had mild diffuse (<=25% stenosis) disease. Left Circumflex The left circumflex (LCX) was normal, free of disease. Right Coronary Artery The right coronary artery (RCA) was normal, free of disease. Ramus The ramus was normal, free of disease. Vascular Access: Vascular Access Management: Mechanical Compression of the right radial artery access site was performed. Conclusions: * Nonobstructive coronary artery disease History of Presentation: This is a 49 yo female with a PMH of HTN on lisinopril, GERD, GI bleed 4 years ago due to PUD 2/2 ibuprofen use, hypothyroidism, migraines and anxiety/depression [facility] worsening heart burn, nausea and malaise. ?? She reports that she was at work yesterday afternoon when felt sudden onset of nausea at ~3 pm. Epigastric pain soon thereafter radiating to her back. Thought that it was GERD given her history. Leftwork. Pain and nausea progressively worse. + diaphoresis and reported feeling hot. No palpitations.Dizziness with standing. Went to ER. Zaan initially the most helpful. Pain in epigastrum, low chest slowly resolved. Currently chest pain free. ?? Family history positive. Father of an [place] at the age of 42. ?? WBC 8.7 H/H 13.2/39.6 Plts 367 Na 135 K 3.4 -> 4.2 Bun/Cr 16/0.74 AST/ALT 06/10 TC 181, HDL 34, TG 88, LDL 129 Troponin I - Negative -> 0.10 (ULN <0.03) EKG - NSR at 80 bpm, high voltage QRS with ST segment changes, consider LVH with repolarization changes CXR - NAPD Guaiac negative on 10/31/19 ?? 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 ?? Meds Administered: ASA 324 10/30 21:29 Plavix 600 mg 10/30 22:06 Heparin gtt Nitropaste Zofran Morphine GI cocktail Lexapro, levothyroxine, lisinopril, pantoprazole Hospital Course: Chest pain, [place] ruled out, possibly representing non-cardiac chest pain vs unstable angina Troponin elevation represents myocardial injury not NSTEMI The patient was admitted to [facility] for telemetry monitoring. One set of biomarkers was positive at the outside hospital though serial biomarkers at our facility were negative. Thus, she was initiallymanaged as an NSTEMI with DAPT and a heparin infusion. Patient was taken to the labor representative due to her strong family history and concern for an NSTEMI on admission. TTE demonstrated normal LV function with no regional wall motion abnormalities. She was found to have nonobstructive coronary artery disease on her cath 11/01/2019, so an NSTEMI was felt to be unlikely. The patient tolerated the procedure well and returned to the floor. Her right wrist was kishore gn after the procedure. She was started on lipitor 40 mg PO daily and ASA 81 mg PO daily for preventative measures given very mild coronary artery disease seen during cardiac cath today. She will be treated with GDMTs for CAD and we discussed the importance of lifestyle modifications with her (ie exercise and diet). The patient requested that the medications be sent to the [facility] and this was called in for her. She will see her PCP in a week and Cardiology as needed in the future. Functional and Cognitive Status: stable Important Studies and Lab Data: Labs: Lab Results Component Value Date WBC 6.2 11/01/2019 HGB 11.2 (L) 11/01/2019 HCT 34.2 (L) 11/01/2019 PLATELET 249 11/01/2019 Recent Labs 10/31/19 1051 INR 1.0 Lab Results Component Value Date NA 137 11/01/2019 K 3.6 11/01/2019 CL 105 11/01/2019 CO2 21 (L) 11/01/2019 BUN 12 11/01/2019 CREATININE 0.50 (L) 11/01/2019 Recent Labs 10/31/19 1051 TSH 1.82 Recent Labs 11/01/19 0454 HA1C 5.3 Recent Labs 10/31/19 2301 10/31/19 1719 10/31/19 1051 CK 65 72 69 TROPONINT <0.01 <0.01 <0.01 Lab Results Component Value Date CHLPL 167 11/01/2019 HDL 34 11/01/2019 CHOLHDL 4.9 11/01/2019 TRIG 122 11/01/2019 LDLDIRECT 111 11/01/2019 Discharge Conditions/Prognosis: stable Discharge to: Home with family Updated Allergies/ADRs: Allergies Allergen Reactions ??? Prednisone Altered mental status Immunizations Given this Hospitalization: There is no immunization history on file for this patient. Discharge Medications: Your Medications New Medications Dose Details aspirin EC 81 mg Tbec Take 1 tablet by mouth daily. Start taking on: November 02, 2019 81 mg Quantity: 30 tablet Refills: 3 atorvastatin 40 mg Tab Commonly known as: Lipitor Take 1 tablet by mouth every evening. 40 mg Quantity: 90 tablet Refills: 3 Continued medications, unchanged Dose Details cetirizine 10 mg Tab Commonly known as: ZyrTEC Take 10 mg by mouth daily. 10 mg Refills: 0 cholecalciferol (Vitamin D3) 400 unit Tab Commonly known as: Vitamin D3 Take 400 Units by mouth daily. 400 Units Refills: 0 clonazePAM 0.25 mg Tbdl Commonly known as: KlonoPIN Take 0.25 mg by mouth 2 times daily as needed. 0.25 mg Refills: 0 escitalopram 20 mg Tab Commonly known as: Lexapro Take 30 mg by mouth daily. 30 mg Refills: 0 lisinopriL 5 mg Tab Commonly known as: Prinivil;Zestril Take 5 mg by mouth daily. 5 mg Refills: 0 omeprazole 20 mg Cpdr Commonly known as: PriLOSEC Take 20 mg by mouth daily. 20 mg Refills: 0 SUMAtriptan 100 mg Tab Commonly known as: Imitrex Take 100 mg by mouth as needed for Migraine. Initial dose: 25 mg, 50 mg, or 100 mg (take with fluids). May repeat dose after 2 hours. Max daily dose: 200 mg 100 mg Refills: 0 Synthroid 75 mcg Tab Take 75 mcg by mouth daily. Generic drug: levothyroxine 75 mcg Refills: 0 Smoking Status at Discharge: Social History Tobacco Use Smoking Status Never Smoker Smokeless Tobacco Never Used Instructions Given to Patient at Discharge: There are no outpatient Patient Instructions on file for this admission. General Instructions Anti-coagulation follow up: n/a Call your doctor if: Chest pain, shortness of breath, pain or swelling in legs occurs. If you have non-emergent questions between now and the time of your follow up appointments: During 8am-5pm Friday through Friday call [phone] to speak with a nurse in the cardiology clinic All other times call [phone] and ask to speak to the railroad shop inspector cable installation manager. Return to work: One week Driving: No driving for 48 hours after catheterization. Follow up Appointments: PCP OMAR Rea [phone] to see you on Nov 08 at 945 am. Cardiology to see you as needed Home oxygen therapy: N/A Arrangements for VNA/home care: none Discharge References/Attachments None documented in this encounter Discharge Instructions * Discharge Instructions* Karely Hagen PA - 11/01/2019 2:34 PM EST Anti-coagulation follow up: n/a Call your doctor if: Chest pain, shortness of breath, pain or swelling in legs occurs. If you have non-emergent questions between now and the time of your follow up appointments: During 8am-5pm Friday through Friday call [phone] to speak with a nurse in the cardiology clinic All other times call [phone] and ask to speak to the railroad shop inspector cable installation manager. Return to work: One week Driving: No driving for 48 hours after catheterization. Follow up Appointments: PCP OMAR Rea [phone] to see you on Nov 08 at 945 am. Cardiology to see you as needed Home oxygen therapy: N/A Arrangements for VNA/home care: none documented in this encounter Medications at Time of Discharge Medication Sig Dispensed Refills Start Date End Date aspirin EC 81 mg Tablet, Delayed Release (E.C.) Take 1 tablet by mouth daily. 30 tablet 3 11/02/2019 atorvastatin (Lipitor) 40 mg Tablet Take 1 tablet by mouth every evening. 90 tablet 3 11/01/2019 escitalopram (Lexapro) 20 mg Tablet Take 30 mg by mouth daily. SUMAtriptan (Imitrex) 100 mg Tablet Take 100 mg by mouth as needed for Migraine. Initial dose: 25 mg, 50 mg, or 100 mg (take with fluids). May repeat dose after 2 hours. Max daily dose: 200 mg clonazePAM (KlonoPIN) 0.25 mg Tablet, Rapid Dissolve Take 0.25 mg by mouth 2 times daily as needed. lisinopriL (Prinivil;Zestril) 5 mg Tablet Take 5 mg by mouth daily. omeprazole (PriLOSEC) 20 mg Capsule, Delayed Release(E.C.) Take 20 mg by mouth daily. levothyroxine (Synthroid) 75 mcg Tablet Take 75 mcg by mouth daily. cholecalciferol, Vitamin D3, (Vitamin D3) 400 unit Tablet Take 400 Units by mouth daily. cetirizine (ZyrTEC) 10 mg Tablet Take 10 mg by mouth daily. documented as of this encounter Progress Notes * Jason Burgos RN - 11/01/2019 5:31 PM EST Pt discharged home. Pt A&Ox4, vitals stable, tele report sent. No reports of SOB or CP. AVS reviewed with pt and family. No reported questions or concerns at this time. Tele and IV DC'd. Pt walked to entrance by family. * Asa Wiseman MD - 11/01/2019 12:17 PM EST Images from the original note were not included. 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 NSTEMI (non-ST elevated myocardial infarction) Resolved Hospital Problems No resolved problems to display. Interval History: Patient has returned from the labor representative and was found to have nonobstructive coronary artery disease. Review of Systems: Review of Systems Constitutional: Negative. HENT: Negative. Eyes: Negative. Respiratory: Negative. Cardiovascular: Negative. Endocrine: Negative. Genitourinary: Negative. Telemetry: HR: 40-70 sinus rhythm Meds: Scheduled Meds: ??? escitalopram 30 mg Oral Daily ??? levothyroxine 75 mcg Oral QAM ??? lisinopriL 5 mg Oral Daily ??? pantoprazole EC 40 mg Oral Daily ??? clopidogreL 75 mg Oral QPM ??? aspirin EC 81 mg Oral Daily ??? metoprolol tartrate 12.5 mg Oral Q6H JOSELYN ??? atorvastatin 40 mg Oral QPM Continuous Infusions: ??? heparin 750 Units/hr (10/31/19 1218) PRN Meds:nitroGLYcerin, perflutren protein-A microspheres, clonazePAM, nitroGLYcerin, acetaminophen, heparin (porcine) AND heparin Physical Exam: Vital Signs: Last value Range last 24 hrs Temperature Temp: 36.7 ??C (98.1 ??F) Temp: [36.6 ??C (97.9 ??F)-37.1 ??C (98.8 ??F)] Heart Rate Heart Rate: 62 Heart Rate: [50-64] Blood Pressure BP: 109/53 BP: (109-125)/(53-67) Respiratory Rate Resp: 21 Resp: [13-22] SpO2 SpO2: 98 % SpO2: [94 %-100 %] Physical Exam Constitutional: Appearance: Normal appearance. HENT: Head: Normocephalic and atraumatic. Mouth/Throat: Mouth: Mucous membranes are dry. Cardiovascular: Rate and Rhythm: Normal rate. Musculoskeletal: Normal range of motion. Skin: General: Skin is warm. Neurological: General: No focal deficit present. Mental Status: She is alert. Psychiatric: Mood and Affect: Mood normal. Lab Comments: Recent Labs 11/01/19 0454 10/31/19 1051 WBC 6.2 7.8 HGB 11.2* 11.1* HCT 34.2* 33.8* PLATELET 249 288 Recent Labs 10/31/19 1051 INR 1.0 Recent Labs 11/01/19 0454 10/31/19 1051 NA 137 139 K 3.6 3.8 CL 105 106 CO2 21* 15* BUN 12 10 CREATININE 0.50* 0.58* Recent Labs 11/01/19 0454 AST 10 ALT 7 ALKPHOS 53 BILITOT 0.2 BILIDIR <0.1 Recent Labs 11/01/19 0454 10/31/19 1051 CALCIUM 9.7 9.3 MAGNESIUM 0.83 -- Recent Labs 10/31/19 2301 10/31/19 1719 10/31/19 1051 CK 65 72 69 TROPONINT <0.01 <0.01 <0.01 Pertinent Radiographic/Diagnostic Results: Cardiac Cath: nonobstructive coronary artery disease. Assessment: Jaclyn Carver is a 49 y.o. female with recent chest pain who went to the labor representative today and was found to have nonobstructive coronary artery disease. Stable for discharge home this afternoon. Plan: Nonobstructive coronary artery disease Patient does not smoke Home today No changes to home medications Given letter to return to work on 11/08/2019 Please see D/C summary for details Full Code Patient discussed with Dr. Wiseman. OMAR Louise 11/01/2019 Pager [phone] OMAR ONEILL 11/01/2019 Cardiology Attending Note I interviewed and examined the patient during comprehensive bedside rounds. I concur with the summary of interval events, active hospital-focused problem list and plan of care as described in the note below. I personally reviewed the medications, laboratory results, treatment decisions and updated the patient. Feeling well today with no recurrence of chest discomfort. Cath today was reassuring with minimal, non-obstructive disease. She has ambulated around the lees and is anxious to be discharged home. Will discharge on GDMTs. Discussed lifestyle modifications. Asa Wiseman MD, FACP, FACC Section of Cardiovascular Medicine [facility] Sleep Lab Technologiststaff developer [facility] This patient meets or has met medical criteria to require an inpatient level of care, i.e. a minimum of two midnights in the hospital with multiple complex problems. * Karely Hagen PA - 11/01/2019 11:18 AM EST Images from the original note were not included. [facility] [place] [address] [facility] November 01, 2019 Jaclyn Carver [address] [place] [phone] Ms. Ball may return to work on 11/08/2019. Thank you. Sincerely, [facility] * Caryn Cash RN - 10/31/2019 12:40 PM EST Pt arrived on unit to room 434B via ambulance. Oriented to room and call michele and connected to tele. Heparin gtt continued. Pt A+O with no complaints of chest pain or sob. VSS, see flowsheets. Sats well on RA. NSR on tele. Admit EKG and labs done. Nitro paste from OSH removed on arrival. Team at bedside to assess. Will continue to monitor. documented in this encounter H&P Notes * Asa Wiseman MD - 10/31/2019 10:32 AM EST Images from the original note were not included. Cardiology Admission H&P Patient Name: Jaclyn Carver Date of : 1970 Age: 49 y.o. Hospital Admit Date: 10/31/2019 Inpatient Attending: Asa Wiseman MD PCP: No primary care provider on file. Presenting Diagnosis/Chief Complaint: Epigastric pain and nausea Active Problem List: Active Hospital Problems Diagnosis ??? NSTEMI (non-ST elevated myocardial infarction) Resolved Hospital Problems No resolved problems to display. History of Present Illness: HPI This is a 49 yo female with a PMH of HTN on lisinopril, GERD, GI bleed 4 years ago due to PUD 2/2 ibuprofen use, hypothyroidism, migraines and anxiety/depression who presented to [facility] on 10/30/19 of worsening heart burn, nausea and malaise. She reports that she was at work yesterday afternoon when felt sudden onset of nausea at ~3 pm. Epigastric pain soon thereafter radiating to her back. Thought that it was GERD given her history. Leftwork. Pain and nausea progressively worse. + diaphoresis and reported feeling hot. No palpitations.Dizziness with standing. Went to ER. Zofran initially the most helpful. Pain in epigastrum, low chest slowly resolved. Currently chest pain free. Family history positive. Father of an [place] at the age of 42. WBC 8.7 H/H 13.2/39.6 Plts 367 Na 135 K 3.4 -> 4.2 Bun/Cr 16/0.74 AST/ALT 06/10 TC 181, HDL 34, TG 88, LDL 129 Troponin I - Negative -> 0.10 (ULN <0.03) EKG - NSR at 80 bpm, high voltage QRS with ST segment changes, consider LVH with repolarization changes CXR - NAPD Guaiac negative on 10/31/19 ED provider bedside TTE with what she believes is preserved LV function (apparently she is ultrasound boarded). Meds Administered: ASA 324 10/30 21:29 Plavix 600 mg 10/30 22:06 Heparin gtt Nitropaste Zofran Morphine GI cocktail Lexapro, levothyroxine, lisinopril, pantoprazole Past Medical History: Past Medical History: Diagnosis Date ??? Anemia ??? Anxiety ??? Depressive disorder ??? GERD (gastroesophageal reflux disease) ??? GI bleed ??? HTN (hypertension) ??? Hypothyroidism ??? Migraine Surgical History/Problems: No past surgical history on file. Significant Family History: Family History Problem Relation Age of Onset ??? Coronary Artery Disease Father [place] at the age of 42 ??? Coronary Artery Disease Paternal Grandmother ??? Coronary Artery Disease Paternal Grandfather Social History: Social History Socioeconomic History ??? Marital status: Not on file Spouse name: Not on file ??? Number of children: Not on file ??? Years of education: Not on file ??? Highest education level: Not on file Occupational History ??? Not on file Social Needs ??? Financial resource strain: Not on file ??? Food insecurity Worry: Not on file Inability: Not on file ??? Transportation needs Medical: Not on file Non-medical: Not on file Tobacco Use ??? Smoking status: Never Smoker ??? Smokeless tobacco: Never Used Substance and Sexual Activity ??? Alcohol use: Not Currently Comment: Rarely ??? Drug use: Not on file ??? Sexual activity: Not on file Lifestyle ??? Physical activity Days per week: Not on file Minutes per session: Not on file ??? Stress: Not on file Relationships ??? Social connections Talks on phone: Not on file Gets together: Not on file Attends baptist service: Not on file Active member of club or organization: Not on file Attends meetings of clubs or organizations: Not on file Relationship status: Not on file ??? Intimate partner violence Fear of current or ex partner: Not on file Emotionally abused: Not on file Physically abused: Not on file Forced sexual activity: Not on file Other Topics Concern ??? Not on file Social History Narrative Works at [employer] (Boyfriend Joao Stringer) 1 child REVIEW OF SYSTEMS: Review of Systems Constitutional: Positive for diaphoresis and fatigue. Respiratory: Negative for shortness of breath. Cardiovascular: Positive for chest pain. Negative for palpitations and leg swelling. Gastrointestinal: Positive for abdominal pain and nausea. All other systems reviewed and are negative. Medications: Medications Prior to Admission Medication Sig Dispense Refill Last Dose ??? escitalopram (Lexapro) 20 mg Tablet Take 30 mg by mouth daily. ??? SUMAtriptan (Imitrex) 100 mg Tablet Take 100 mg by mouth as needed for Migraine. Initial dose: 25 mg, 50 mg, or 100 mg (take with fluids). May repeat dose after 2 hours. Max daily dose: 200 mg ??? clonazePAM (KlonoPIN) 0.25 mg Tablet, Rapid Dissolve Take 0.25 mg by mouth 2 times daily as needed. ??? lisinopriL (Prinivil;Zestril) 5 mg Tablet Take 5 mg by mouth daily. ??? omeprazole (PriLOSEC) 20 mg Capsule, Delayed Release(E.C.) Take 20 mg by mouth daily. ??? levothyroxine (Synthroid) 75 mcg Tablet Take 75 mcg by mouth daily. ??? cholecalciferol, Vitamin D3, (Vitamin D3) 400 unit Tablet Take 400 Units by mouth daily. ??? cetirizine (ZyrTEC) 10 mg Tablet Take 10 mg by mouth daily. Allergies: Allergies Allergen Reactions ??? Prednisone Altered mental status PHYSICAL EXAM: Last set of vital signs: BP 114/82 (BP Location (NBP): Left arm) Pulse 81 Temp 36.8 ??C (98.2 ??F) (Oral) Resp 16 Ht 162.6 cm (5' 4) Wt 64 kg (141 lb 1.5 oz) SpO2 97% BMI 24.22 kg/m?? Physical Exam Constitutional: Appearance: Normal appearance. HENT: Head: Normocephalic and atraumatic. Neck: Musculoskeletal: Normal range of motion. Cardiovascular: Rate and Rhythm: Normal rate and regular rhythm. Heart sounds: No murmur. Pulmonary: Effort: Pulmonary effort is normal. Breath sounds: Normal breath sounds. No rales. Abdominal: General: Abdomen is flat. There is no distension. Palpations: Abdomen is soft. Musculoskeletal: Normal range of motion. Right lower leg: No edema. Left lower leg: No edema. Neurological: General: No focal deficit present. Mental Status: She is alert. Psychiatric: Mood and Affect: Mood normal. Behavior: Behavior normal. Diagnostics: Await EKG LABS: Recent Results (from the past 24 hour(s)) Hemogram Result Value Ref Range WBC 7.8 4.0 - 9.5 x10(3)/mcL RBC 3.82 (L) 4.00 - 5.21 x10(6)/mcL Hemoglobin 11.1 (L) 11.7 - 15.5 gm/dL Hematocrit 33.8 (L) 35.7 - 45.8 % MCV 88.5 82.6 - 94.4 fL MCH 29.1 27.1 - 32.0 pg MCHC 32.8 31.7 - 35.0 gm/dL Platelets 288 145 - 357 x10(3)/mcL RDWSD 44.6 37.0 - 46.0 fL RDWCV 13.8 11.5 - 14.1 % MPV 10.4 7.6 - 12.9 fL nRBC % Auto 0.0 % nRBC Abs Auto 0.000 0.000 - 0.000 x10(3)/mcL Differential, Automated Result Value Ref Range Neutrophils % 78.9 % Neutr Abs (ANC) 6.17 (H) 1.70 - 6.10 x10(3)/mcL Lymphocytes % 12.6 % Lymphocytes Abs 1.0 0.9 - 3.2 x10(3)/mcL Monocytes % 7.0 % Monocyte Abs 0.6 0.3 - 0.9 x10(3)/mcL Eosinophils % 0.6 % Eosinophils Abs 0.0 0.0 - 0.4 x10(3)/mcL Basophils % 0.6 % Basophils Abs 0.0 0.0 - 0.1 x10(3)/mcL Immature Gran % 0.30 % Jodee Gran Abs 0.02 0.00 - 0.04 x10(3)/mcL ASSESSMENT: This is a 49 yo female with a PMH of HTN on lisinopril, GERD, GI bleed 4 years ago due to PUD 2/2 ibuprofen use, hypothyroidism, migraines and anxiety/depression who presented to [facility] on 10/30/19 of worsening heart burn, nausea and malaise. Noted premature family history of disease with father having a fatal [place] at the age of 42. 2nd troponin positive. EKG with baseline ST changes making the interpretation difficult. Plan for management of NSTEMI with differentials including plaque rupture, Takotsubo, SCAD. TREATMENT PLAN: #NSTEMI Admit to cardiology Telemetry Trend troponin Aspirin 324/81mg Plavix 600/75 mg Heparin drip BB - metoprolol tartrate 12.5 mg q 6 hours with parameters Statin - atorvastatin 40 mg nightly EDDIE - lisinopril 5 mg daily SLNTG prn Echo later today Will send for coronary angiography #HTN BP: (114)/(82) Cont lisinopril Add metoprolol #Hypothyroidism Check TSH Cont home dosing of levothyroxine 75 mcg daily FULL CODE GI prophylaxis with pantoprazole DVT prophylaxis with heparin gtt This patient was discussed with Asa Wiseman MD. Kerri Perkins PA-C 10/31/2019 Cardiology Attending Note I interviewed and examined the patient during comprehensive bedside rounds. I concur with the summary of interval events, active hospital-focused problem list and plan of care as described in the note below. I personally reviewed the medications, laboratory results, treatment decisions and updated the patient. Asa Wiseman MD, FACP, FAC Section of Cardiovascular Medicine [facility] Sleep Lab Technologiststaff developer [facility] of Medicine at [facility] This patient meets or has met medical criteria to require an inpatient level of care, i.e. a minimum of two midnights in the hospital with multiple complex problems. documented in this encounter Miscellaneous Notes * Initial Assessments - Joao Bah RN - 11/01/2019 3:51 PM EST Office of Care Management Assessment Medical record reviewed. Plan of care and patient status discussed with direct care RN and/or Care Team in multidisciplinary rounds. Screen[age] y.o. female here for Present on Admission: ??? NSTEMI (non-ST elevated myocardial infarction) Patient has not been admitted to a hospital within the last 30 days. Information known about that admission: NA. Patient receiving hospital care under Inpatient status. Admission order reviewed. 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 Living Situation:Lives in a 1 story home with her boyfriend Joao Stringer and his brother Karely Stringer. Physical address is [address] [place] [address] [address] [facility] [address] Supports: her boyfriend Joao Stringer. Assessment: Patient with no apparent RNCM/SW needs at this time. No housing, transportation, insurance, resources concerns identified at this time. Supports in place to achieve a safe post-hospital transition. No identified barriers to accessing necessary care and/or follow-up after discharge. Plan: Patient to d/c to home via boyfriend when medically ready. film technician/Fishing Boat Captain will continue to follow patient???s progress and remain available if situation changes for coordination of care, psychosocial support and/or discharge planning. Joao Bah RN Pager [phone] * Brief Op Note - Darnell Macias MD - 11/01/2019 8:45 AM EST Preliminary Cardiac Catheterization Procedure Note: Patient Name: Jaclyn Carver : [id number] MR#: [id number] Case Date: 11/01/2019 Claim Adjuster: Surgeon(s) and Role: * Darnell Macias MD - Primary * Rik Lai MD - Fellow Preoperative diagnosis: ?CAD Postoperative diagnosis: chest pain, uncertain etiology Procedure(s) performed: left heart cath, coronary angiography Access: 6 SL R radial => TR band A time-out was conducted prior to the start of the procedure to verify the correct patient and procedure, procedure location, and all relevant critical information. Preliminary findings: Left dominant coronary circulation, minor/non-obstructive LAD disease. LVEDP 13. The patient tolerated the procedures smoothly and was transferred from the cardiac catheterization lab to the next level of care in stable condition. No evident early complications. Full report to follow. DARNELL MACIAS MD * Plan of Care - Gilda Wylie RN - 11/01/2019 3:48 AM EST Problem: Patient Care Overview Goal: Plan of Care Review Outcome: Ongoing (Interventions Implemented as Appropriate) 10/31/19 17410/31/192024 Plan of Care Review Progress no change -- Coping/Psychosocial Plan Of Care Reviewed With -- patient OUTCOME EVALUATION NOTE: OUTCOME SUMMARY: Bre had an uneventful night. Has denied chest pain or shortness of breath through the shift. Reported anxiety related to hospitalization and upcoming cath procedure. PRN Klonopin given. Slept intermittently through the night. Sinus rhythm/sinus [place] on tele with HRs mostly in the mid 40s after midnight. BPs stable and patient asymptomatic while bradycardic. Heparin gtt continued. 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 INDIVIDUALIZED FALL PREVENTION INTERVENTIONS: Patient-specific fall risk factors per assessment: [current deficits]: Assistance [level of assistance required for transfers and ambulation]: Stand by assist Supervision [direct monitoring required during toileting and ADLs]: Supervision declined while toileting Surveillance [continuous indirect monitoring]: Telemetry, pulse ox Patient-specific fall prevention interventions for sensory deficits provided, if applicable: CPG GOAL OUTCOME EVALUATION: ongoing Goal: Discharge Needs Assessment Outcome: Ongoing (Interventions Implemented as Appropriate) 11/01/19 0341 Discharge Needs Assessment Concerns To Be Addressed no discharge needs identified Readmission Within The Last 30 Days no previous admission in last 30 days Equipment Needed After Discharge none Current Health Anticipated Changes Related to Illness none Activity/Self Care Review of Systems Equipment Currently Used at Home none Living Environment Transportation Available family or friend will provide Goal: Interdisciplinary Rounds/Family Conf Outcome: Ongoing (Interventions Implemented as Appropriate) 11/01/19 0341 Interdisciplinary Rounds/Family Conf Participants nursing * Plan of Care - Caryn Cash RN - 10/31/2019 5:50 PM EST Problem: Patient Care Overview Goal: Plan of Care Review Outcome: Ongoing (Interventions Implemented as Appropriate) 10/31/19 1215 10/31/191748 Plan of Care Review Progress -- no change Coping/Psychosocial Plan Of Care Reviewed With patient -- OUTCOME EVALUATION NOTE: OUTCOME SUMMARY: Pt had a good shift. A&O. VSS, see flowsheets. NSR/SB on tele, see report. Denied CP or SOB. Sats well on RA. Ambulating in room with no reports of chest pain. Heparin gtt maintained. NPO at midnight for cath. Will continue to monitor. PLAN MOVING FORWARD: Cath tomorrow Continue D/C planning as appropriate INDIVIDUALIZED FALL PREVENTION INTERVENTIONS: Patient-specific fall risk factors per assessment: [current deficits]: Generalized weakness. Unfamiliar environment. Tele. Assistance [level of assistance required for transfers and ambulation]: SBA Supervision [direct monitoring required during toileting and ADLs]: Intermittent monitoring. Call michele in reach Surveillance [continuous indirect monitoring]: Hourly rounding. Tele. Patient-specific fall prevention interventions for sensory deficits provided, if applicable: [X] Yes CPG GOAL OUTCOME EVALUATION: Ongoing Goal: Fall Prevention-Safe Patient Handling Outcome: Ongoing (Interventions Implemented as Appropriate) 10/31/19 12110/31/19 1600 Gomez Fall Risk History of Falling 0 -- Secondary Diagnosis 15 -- Ambulatory Aids 0 -- Intravenous Therapy/Heparin/Saline Lock 20 -- Gait/Transferring 0 -- Mental Status 0 -- Score 35 -- OTHER Gomez Fall Risk Med -- Restraint Interventions Safety Promotion/Fall Prevention -- activity supervised;fall prevention program maintained;nonskid shoes/slippers when out of bed;safety round/check completed Positioning Body Position independent -- Activity Activity Type activity adjusted per tolerance -- Activity Assistance Provided assistance, stand-by -- Assistive Device Utilized none -- Goal: Infection Control Outcome: Ongoing (Interventions Implemented as Appropriate) 10/31/19 1215 10/31/19 1600 Safety Interventions Isolation Precautions -- standard precautions maintained Infection Prevention -- environmental surveillance performed;rest/sleep promoted Coping Strategies Supportive Measures active listening utilized;decision-making supported;positive reinforcement provided;self-care encouraged -- documented in this encounter Plan of Treatment Upcoming Encounters Date Type Department Care Team (Latest Contact Info) Description 07/20/2024 3:45 PM EDT Hospital Encounter [place] [address] Wero Church MD [facility] [place] [address] 07/20/2024 3:45 PM EDT - 07/20/2024 4:45 PM EDT [facility] [place] [address] Wero Church MD [facility] [place] [address] EGD, UPPER GI ENDOSCOPY (WRVU 2.09) Scheduled [...] Procedure Name Priority Date/Time Associated Diagnosis Comments ECHO COMPLETE Routine 11/01/2019 9:12 AM EST Non-ST elevation myocardial infarction (NSTEMI) CARDIAC CATHETERIZATION Routine 11/01/19 8:45 AM EST EKG 12-LEAD Routine 11/01/2019 6:24 AM EST Non-ST elevation myocardial infarction (NSTEMI) HC UNFRACTIONATED HEPARIN (HEP UFH) STAT 11/01/2019 4:54 AM EST BMP W/FASTING GLUCOSE Routine 11/01/2019 4:54 AM EST HEMOGRAM Routine 11/01/2019 4:54 AM EST DIFFERENTIAL, AUTOMATED Routine 11/01/19 20 4:54 AM EST HC CBC,PLT & AUTO DIFF Routine 0 4:54 AM EST HC TRIGLYCERIDES Routine 11/01/2019 4:54 AM EST HC MAGNESIUM, SERUM Routine 11/01/2019 4 :54 AM EST HC LDL CHOLESTEROL, DIRECT Routine 11/01/2019 4:54 AM EST HC CHOLESTEROL Routine 11/01/2019 4:54 AM EST HC HEMOGLOBIN A1C Routine 11/01/2019 4:5 4 AM EST HEPATIC FUNCTION PANEL Routine 0 4:54 AM EST HC UNFRACTIONATED HEPARIN (HEP UFH) STAT 10/31/2019 11:01 PM EST HC TROPONIN T STAT 10/31/2019 11:01 PM EST HC CREATINE PHOSPHOKINASE, SERUM Routine 10/31/2019 11:01 PM EST HC UNFRACTIONATED HEPARIN (HEP UFH) STAT 10/31/2019 5:19 PM EST HC VENIPUNCTURE STAT 10/31/2019 5:19 PM EST HC CREATINE PHOSPHOKINASE, SERUM Routine 10/31/2019 5:19 PM EST EKG 12-LEAD STAT 10/31/2019 11:30 AM EST Non-ST elevation myocardial infarction (NSTEMI) HC UNFRACTIONATED HEPARIN (HEP UFH) STAT 10/31/2019 10:51 AM EST HEMOGRAM STAT 10/31/2019 10:51 AM EST DIFFERENTIAL, AUTOMATED STAT 10/31/19 20 10:51 AM EST HC PARTIAL THROMBOPLASTIN TIME STAT 10/31/2019 10:51 AM EST HC PROTHROMBIN TIME STAT 10/31/2019 1 0:51 AM EST HC CBC,PLT & AUTO DIFF STAT 0 10:51 AM EST HC TROPONIN T STAT 10/31/2019 10:51 AM EST TSH STAT 10/31/2019 10:51 AM EST HC PROBNP STAT 10/31/2019 10:51 AM EST HC CREATINE PHOSPHOKINASE, SERUM Routine 10/31/2019 10:51 AM EST HC VENIPUNCTURE STAT 10/31/2019 10:51 AM EST documented in this encounter Results * ECHO COMPLETE (11/01/2019 9:12 AM EST) EF 75 HEARTLAB SYSTEM Anatomical Region Laterality Modality Other 11/01/2019 Narrative 11/01/2019 9:53 AM EST Procedure: ?Transthoracic Echocardiogram Patient: ?MEHUL Win ? (Age): 1970(49y) Med Rec#: ? [id number] ?Sex: ?F ? Site Loc: ? [facility] [place] [facility] ?Ht / Wt: ??162(cm)/63(kg) Pt. Loc: ?Adult Floor ? BSA: ?1.67 Study Date: ?? 11/01/2019 ?Pt. Type: Inpatient Tape: ? Referring: Asa Wiseman ([id number]) Referring: MIKE Reading: Joaquin Davison ([id number]) Director Hris: Kassidy Willard Diagnosis: *Non-ST elevation (NSTEMI) myocardial infarction (I21.4) BP: ? 125/67 SUMMARY: 1. Borderline concentric left ventricular hypertrophy is observed. Global left ventricular systolic function appears hyperdynamic. Ejection fraction is estimated to be 75%. ??There are no left ventricular segmental wall motion abnormalities. 2. The right ventricle is normal in size. ??Right ventricular global systolic function is normal. 3. No significant valvular abnormalities. 4. See remainder of report for additional findings. Findings ? : Left Ventricle: ? The left ventricular chamber size is normal. ?Borderline concentric left ventricular hypertrophy is observed. ?There is mild septal hypertrophy of the left ventricle. ?There is no evidence of LVOT obstruction. ?No ventricular septal defect is visualized. ?Global left ventricular systolic function appears hyperdynamic. Ejection fraction is estimated to be 75%. ?There are no left ventricular segmental wall motion abnormalities. ?Left ventricular diastolic function is normal. ?Doppler assessment is consistent with normal left sided filling pressure. Left Atrium: ? The left atrium is mildly dilated.(41 ml/m2) ?No atrial septal defect is visualized. Right Ventricle: ? The right ventricle is normal in size. ?Right ventricular global systolic function is normal. ?Pulmonary artery hypertension could not be assessed due to inadequate tricuspid regurgitation jet. ?The estimated right atrial pressure is 3 mmHg. Right Atrium: ? The right atrium appears normal. Aortic Valve: ? The aortic valve is trileaflet. The leaflets are thin with normal excursion. There is no aortic stenosis or regurgitation present. Mitral Valve: ? The mitral valve appears normal in structure and function. ?There is no evidence of mitral valve leaflet prolapse. ?There is trace mitral regurgitation present. Tricuspid Valve: ? The tricuspid valve appears normal in structure and function. ?There is trace tricuspid regurgitation present. Pulmonic Valve: ? The pulmonic valve appears normal in structure and function. ?There is trace pulmonic regurgitation present. Pericardium: ? The pericardium appears normal and there is no evidence of a pericardial effusion. Aorta: ? The aortic root is normal in size. ?The ascending aorta is normal in size. ?There is no evidence of coarctation of the aorta. Pulmonary Artery: ? The main pulmonary artery appears normal. Venous: ? The inferior vena cava appears normal in size. ?There is a greater than 50% respiratory change in the inferior vena cava dimension. Misc: ? Two-dimensional echo, spectral Doppler and color Doppler performed. Chambers 2D ?Value ?Units (Range) ? IVSd (2D) ? 1.18 ? cm ? LVPWd (2D) ?0.99 ? cm ? IVS:LVPW ratio (2D) 1.19 ? ratio ? RWT (2D) ?0.53 ? ratio ? RWT PW (2D) ? 0.49 ? ratio ? LVIDd (2D) ?4.09 ? cm ? LVIDs (2D) ?1.88 ? cm ? LVIDd (2D) index ?2.45 ? cm/m2 ? LVIDs (2D) index ?1.12 ? cm/m2 ? LV FS (2D) ?54.07 ?% ? EF Teichholz (2D) ?? 85.31 ?% ? Ao root diameter (2D2.74 ? cm (2.1 - 3.6) ? Ascending Ao ?2.91 ? cm (2 - 3.5) ? Volumes/Mass ?Value ?Units (Range) ? LA Area 4 CH ?20 ? cm2 (<21) ? LA ESV BP (A/L) inde41 ? ml/m2 ? RA AREA 4CH ? 14 ? cm2 ? LV mass (2D) ?147.46 ? g ? LV mass (2D) index ??88.25 ?g/m2 ? Diastolic/Systolic Function ?Value ?Units (Range) ? MV E-wave Vmax ?0.66 ? m/sec ? MV deceleration zoaq996.6 ?msec ? MV A-wave Vmax ?0.54 ? m/sec ? MV E:A ratio ?1.23 ? ratio ? LV septal e' Vmax ?? 0.06 ? m/sec ? LV lateral e' Vmax ??0.1 ?m/sec ? LV average e' Vmax ??0.08 ? m/sec ? LV E:e' septal ratio11.07 ?ratio ? LV E:e' lateral rati6.64 ? ratio ? LV average E:e' rati8.3 ?ratio ? Tricuspid Valve ?Value ?Units (Range) ? RAP ? 3 ?mmHg ? Wall Motion: Segment Name ?Rest ? Base-Anteroseptal ?? Normal ? Base-Anterior ? Normal ? Base-Anterolateral ??Normal ? Base-Posterolateral Normal ? Base-Inferior ? Normal ? Base-Inferoseptal ?? Normal ? Mid-Anteroseptal ?Normal ? Mid-Anterior ?Normal ? Mid-Anterolateral ?? Normal ? Mid-Posterolateral ??Normal ? Mid-Inferior ?Normal ? Mid-Inferoseptal ?Normal ? [place]-Septal ? Normal ? [place]-Anterior ? Normal ? [place]-Lateral ?Normal ? [place]-Inferior ? Normal ? [place]-Tip ?Normal ? This report has been electronically signed by: Joaquin Davison MD ? 11/01/2019 09:52:50 Images reviewed and interpretation verified [facility] Cardiac Ultrasound Laboratory Procedure Note Joaquin Davison MD - 11/01/2019 Procedure: Transthoracic Echocardiogram Patient: MEHUL Win DOB(Age): 1970(49y) Med Rec#: [id number] Sex: F Site Loc: [facility] [place] [facility] Ht / Wt: 162(cm)/63(kg) Pt. Loc: Adult Floor BSA: 1.67 Study Date: 11/01/2019 Pt. Type: Inpatient Tape: Referring: Asa Wiseman ([id number]) Referring: MIKE Reading: Joaquin Davison ([id number]) Director Hris: Kassidy Willard Diagnosis: *Non-ST elevation (NSTEMI) myocardial infarction (I21.4) BP: 125/67 SUMMARY: 1. Borderline concentric left ventricular hypertrophy is observed. Global left ventricular systolic function appears hyperdynamic. Ejection fraction is estimated to be 75%. There are no left ventricular segmental wall motion abnormalities. 2. The right ventricle is normal in size. Right ventricular global systolic function is normal. 3. No significant valvular abnormalities. 4. See remainder of report for additional findings. Findings : Left Ventricle: The left ventricular chamber size is normal. Borderline concentric left ventricular hypertrophy is observed. There is mild septal hypertrophy of the left ventricle. There is no evidence of LVOT obstruction. No ventricular septal defect is visualized. Global left ventricular systolic function appears hyperdynamic. Ejection fraction is estimated to be 75%. There are no left ventricular segmental wall motion abnormalities. Left ventricular diastolic function is normal. Doppler assessment is consistent with normal left sided filling pressure. Left Atrium: The left atrium is mildly dilated.(41 ml/m2) No atrial septal defect is visualized. Right Ventricle: The right ventricle is normal in size. Right ventricular global systolic function is normal. Pulmonary artery hypertension could not be assessed due to inadequate tricuspid regurgitation jet. The estimated right atrial pressure is 3 mmHg. Right Atrium: The right atrium appears normal. Aortic Valve: The aortic valve is trileaflet. The leaflets are thin with normal excursion. There is no aortic stenosis or regurgitation present. Mitral Valve: The mitral valve appears normal in structure and function. There is no evidence of mitral valve leaflet prolapse. There is trace mitral regurgitation present. Tricuspid Valve: The tricuspid valve appears normal in structure and function. There is trace tricuspid regurgitation present. Pulmonic Valve: The pulmonic valve appears normal in structure and function. There is trace pulmonic regurgitation present. Pericardium: The pericardium appears normal and there is no evidence of a pericardial effusion. Aorta: The aortic root is normal in size. The ascending aorta is normal in size. There is no evidence of coarctation of the aorta. Pulmonary Artery: The main pulmonary artery appears normal. Venous: The inferior vena cava appears normal in size. There is a greater than 50% respiratory change in the inferior vena cava dimension. Misc: Two-dimensional echo, spectral Doppler and color Doppler performed. Chambers 2D Value Units (Range) IVSd (2D) 1.18 cm LVPWd (2D) 0.99 cm IVS:LVPW ratio (2D) 1.19 ratio RWT (2D) 0.53 ratio RWT PW (2D) 0.49 ratio LVIDd (2D) 4.09 cm LVIDs (2D) 1.88 cm LVIDd (2D) index 2.45 cm/m2 LVIDs (2D) index 1.12 cm/m2 LV FS (2D) 54.07 % EF Teichholz (2D) 85.31 % Ao root diameter (2D2.74 cm (2.1 - 3.6) Ascending Ao 2.91 cm (2 - 3.5) Volumes/Mass Value Units (Range) LA Area 4 CH 20 cm2 (<21) LA ESV BP (A/L) inde41 ml/m2 RA AREA 4CH 14 cm2 LV mass (2D) 147.46 g LV mass (2D) index 88.25 g/m2 Diastolic/Systolic Function Value Units (Range) MV E-wave Vmax 0.66 m/sec MV deceleration oqiy715.6 msec MV A-wave Vmax 0.54 m/sec MV E:A ratio 1.23 ratio LV septal e' Vmax 0.06 m/sec LV lateral e' Vmax 0.1 m/sec LV average e' Vmax 0.08 m/sec LV E:e' septal ratio11.07 ratio LV E:e' lateral rati6.64 ratio LV average E:e' rati8.3 ratio Tricuspid Valve Value Units (Range) RAP 3 mmHg Wall Motion: Segment Name Rest Base-Anteroseptal Normal Base-Anterior Normal Base-Anterolateral Normal Base-Posterolateral Normal Base-Inferior Normal Base-Inferoseptal Normal Mid-Anteroseptal Normal Mid-Anterior Normal Mid-Anterolateral Normal Mid-Posterolateral Normal Mid-Inferior Normal Mid-Inferoseptal Normal [place]-Septal Normal [place]-Anterior Normal [place]-Lateral Normal [place]-Inferior Normal [place]-Tip Normal This report has been electronically signed by: Joaquin Davison MD 11/01/2019 09:52:50 Images reviewed and interpretation verified [facility] Cardiac Ultrasound Laboratory Asa Wiseman MD ECHO ORDERABLES * CARDIAC CATHETERIZATION (11/01/2019 8:45 AM EST) Anatomical Region Laterality Modality Other Narrative 11/01/2019 8:59 AM EST ?[facility] ? Cardiac Catheterization/Intervention Report ? Patient Name: Mehul Jaclyn Quirino. ? Procedure Date: 11/01/2019 ? A #: [id number] ? Primary Physician: Darnell Macias ? Case #: [id number] ? File Name: [id number] ? Catheterization Order Number: [id number] ? [facility] ? Final Report [place], [place] ? Patient Name: ? Jaclyn Carver ? ID#: ?[id number] ? : ?1970 ? Procedure Date: ? November 01, 2019 ? Case #: ? [id number] ? Room: ? 1 ? Case Physician: ? Darnell Macias M.D. ? Start: ?08:20 ?Fellow: ? Rik Lai M.D. ?Admission: ??10/31/2019 ? Referring Physician: ??Maryanne Buckley M.D. ? Procedures: ?* Coronary Angiography ?* Left Heart Catheterization ? History ?Jaclyn Carver is a 49 year old woman. She has hypertension and a ?family history of coronary artery disease. The patient's smoking status ?is Never. She is also status post an acute non-ST elevation myocardial ?infarction. Prior to the initiation of this procedure, the patient was ?designated as ASA Class III. The CSHA clinical frailty scale is 2: Well. ? Diagnostic Tests: ?Electrocardiography: ? EKG was assessed by ECG. EKG was Abnormal. EKG showed other ? abnormality. ?Medications Prior to Procedure: ? ASA and Statin. ? Indications for Diagnostic Cath: ?The priority of the diagnostic procedure was Urgent. The indication for ?the labor representative visit is ACS less than or equal to 24 hrs. Chest pain ?symptom assessment was: Typical Angina. ? Technique: ?A 6Fr sheath was inserted in the right radial artery utilizing the ?Seldinger technique. The left coronary artery was injected utilizing a ?5Fr TIG 4.0 catheter. A 5Fr TIG 4.0 catheter was used to inject the right ?coronary artery. Left ventricular pressure was performed with a 5Fr TIG ?4.0 catheter. 4,000 units of heparin were administered. A total of 100cc ?of Omnipaque were opened, 50cc of Omnipaque were administered and 50cc of ?Omnipaque were wasted. Radiation: Fluoro time was 3.1 minutes, dose area ?product was 38,620 mGYcm2 and air kerma was 634 mGY. See the case log for ?additional details. ?The patient received the following medications prior to and during the ?procedure: ? Unfractionated Heparin. ? Hemodynamics: ?Left Heart Pressures ? Resting: ? Syst Diast ? EDP ?a ?v ? m ?Ao 120 ?? 71 ?92 ?LV 124 ? 13 ? Coronary Angiography: ?Dominance: Left ?Left Main ? The left main was normal, free of disease. ?Left Anterior Descending ? There was mild diffuse (<=25% stenosis) disease of the proximal ? segment of the left anterior descending artery (LAD) and it was ? calcified. ??The LAD was moderate in size. ??The mid segment of the ? LAD had mild diffuse (<=25% stenosis) disease. ?Left Circumflex ? The left circumflex (LCX) was normal, free of disease. ?Right Coronary Artery ? The right coronary artery (RCA) was normal, free of disease. ?Ramus ? The ramus was normal, free of disease. ? Vascular Access: ?Vascular Access Management: ? Mechanical Compression of the right radial artery access site was ? performed. ? Conclusions: ?* Nonobstructive coronary artery disease ? Complications/Events: ?The patient had no complications during these procedures. ?The attending physician was present for the entire procedure. ?Dr. Darnell Macias M.D. was present during the moderate sedation ?intraservice time as documented by the sedation nurse. ??Case time = 00:19. ?Dr. Darnell Macias M.D. performed the coronary angiography and left heart ?catheterization. ? Darnell Macias, M.D. ? Electronically Signed by: Darnell Macias, M.D. ? Report Finalized: 11/01/2019 ??08:54 ? Procedure Note Darnell Macias MD - 11/01/2019 [facility] Cardiac Catheterization/Intervention Report Patient Name: Jaclyn Carver Procedure Date: 11/01/2019 A #: [id number] Primary Physician: Darnell Macias Case #: [id number] File Name: [id number] Catheterization Order Number: [id number] [facility] FinalReport [place], [place] Patient Name: Jaclyn Carver ID#:[id number] :[id number] Procedure Date: November 01, 2019 Case #: [id number] Room: 1 Case Physician: Darnell Macias M.D. Start: 08:20 Fellow: Rik Lai M.D. Admission:10/31/2019 Referring Physician: Maryanne Buckley M.D. Procedures: * Coronary Angiography * Left Heart Catheterization History Jaclyn Carver is a 49 year old woman. She has hypertension nelson family history of coronary artery disease. The patient's smokingstatus is Never. She is also status post an acute non-ST elevationmyocardial infarction. Prior to the initiation of this procedure, the patientwas designated as ASA Class III. The CSHA clinical frailty scale is 2:Well. Diagnostic Tests: Electrocardiography: EKG was assessed by ECG. EKG was Abnormal. EKG showed other abnormality. Medications Prior to Procedure: ASA and Statin. Indications for Diagnostic Cath: The priority of the diagnostic procedure was Urgent. The indicationfor the labor representative visit is ACS less than or equal to 24 hrs. Chest pain symptom assessment was: Typical Angina. Technique: A 6Fr sheath was inserted in the right radial artery utilizing the Seldinger technique. The left coronary artery was injected utilizinga 5Fr TIG 4.0 catheter. A 5Fr TIG 4.0 catheter was used to inject theright coronary artery. Left ventricular pressure was performed with a 5FrTIG 4.0 catheter. 4,000 units of heparin were administered. A total sd792ge of Omnipaque were opened, 50cc of Omnipaque were administered [id number] of Omnipaque were wasted. Radiation: Fluoro time was 3.1 minutes, dosearea product was 38,620 mGYcm2 and air kerma was 634 mGY. See the caselog for additional details. The patient received the following medications prior to and duringthe procedure: Unfractionated Heparin. Hemodynamics: Left Heart Pressures Resting: Syst Diast EDP a v m Ao 120 71 92 LV 124 13 Coronary Angiography: Dominance: Left Left Main The left main was normal, free of disease. Left Anterior Descending There was mild diffuse (<=25% stenosis) disease of the proximal segment of the left anterior descending artery (LAD) and it was calcified. The LAD was moderate in size. The mid segment ofthe LAD had mild diffuse (<=25% stenosis) disease. Left Circumflex The left circumflex (LCX) was normal, free of disease. Right Coronary Artery The right coronary artery (RCA) was normal, free of disease. Ramus The ramus was normal, free of disease. Vascular Access: Vascular Access Management: Mechanical Compression of the right radial artery access sitewas performed. Conclusions: * Nonobstructive coronary artery disease Complications/Events: The patient had no complications during these procedures. The attending physician was present for the entire procedure. Dr. Darnell Macias M.D. was present during the moderate sedation intraservice time as documented by the sedation nurse. Case time =00:19. Dr. Darnell Macias M.D. performed the coronary angiography and leftheart catheterization. Darnell Maicas M.D. Electronically Signed by: Darnell Macias M.D. Report Finalized: 11/01/2019 08:54 Asa Wiseman MD CARDIAC CATH ORDER SIGRID * EKG 12 Lead (11/01/2019 6:24 AM EST) Ventricular rate 54 BPM MUSE SYSTEM Atrial Rate 54 BPM MUSE SYSTEM P-R Interval 158 ms MUSE SYSTEM QRS Duration 108 ms MUSE SYSTEM Q-T Interval 466 ms MUSE SYSTEM QTC Calculated (Bezet) 441 ms MUSE SYSTEM Calculated P Lawndale 66 degrees MUSE SYSTEM Calculated R [place]wn[place] 76 degrees MUSE SYSTEM Calculated T [place]wn[place] 78 degrees MUSE SYSTEM INTERPRETATION Sinus bradycardia Baseline wander Possible ST elevation, consider early repolarization , pericarditis, or injury When compared with ECG of 31-OCT-2019 11:30, No significant change was found Confirmed by Blake Sr MD ([id number]) on 11/01/2019 4:08:17 PM MUSE SYSTEM 11/01/2019 6:24 AM EST 11/01/2019 4:08 PM EST Asa Wiseman MD ECG ORDERABLES MUSE SYSTEM * Heparin (unfractionated) Level (11/01/2019 4:54 AM EST) Pathologist [facility] UF Heparin 0.34 IU/mL [facility] Comment: Guidelines for therapeutic unfractionated heparin levels are summarized below. Heparin (Anti-Xa) levels should be determined in a plasma sample that has been drawn 6 hours after a dose change i.e., steady-state has been reached. DRUG ?Dosing Schedule ? Target Peak Steady-State ?Heparin (Anti-Xa) Levels (Units/mL) Unfractionated ?Continuous infusion ?0.3-0.7 Heparin ?0.3-0.6 for some neurology indications Blood specimen (specimen) 11/01/2019 4:54 AM EST 11/01/2019 5:02 AM EST Narrative Resulting Agency Comment Spec In Lab Asa Wiseman MD HEMATOLOGY ORDERAB LES [facility] [place] [address] * Differential, Automated (11/01/2019 4:54 AM EST) Neutrophil % 62.9 % [facility] Neutrophil Absolute 3.88 1.70 - 6.10 x10(3)/[facility] Lymph % 24.6 % [facility] Lymphocytes Abs 1.5 0.9 - 3.2 x10(3)/[facility] Monocyte % 8.3 % [facility] Monocyte Abs 0.5 0.3 - 0.9 x10(3)/[facility] Eos % 2.9 % [facility] Eosinophils Abs 0.2 0.0 - 0.4 x10(3)/[facility] Basophil % 1.1 % [facility] Baso Absolute 0.1 0.0 - 0.1 x10(3)/[facility] Immature Gran % 0.20 % [facility] Comment: Immature granulocytes(IG's)percentage and absolute count will include metamyelocytes, myelocytes, and promyelocytes. Blood smears from CBCs yielding IG's will be scanned manually for concordance. If this scan disagrees with the automated IG or if promyelocytes are noted, a manual differential will be performed. Immature Gran Absolute 0.01 0.00 - 0.04 x10(3)/[facility] Blood specimen (specimen) 11/01/2019 4:54 AM EST 11/01/2019 5:02 AM EST Narrative Resulting Agency Comment Spec In Lab Kerri NELSON HEMATOLOGY ORDERABLE S [facility] [place] [address] * (ABNORMAL) Hemogram (11/01/2019 4:54 AM EST) White Blood Cell 6.2 4.0 - 9.5 x10(3)/mc L [facility] Red Blood Cell 3.89(L) 4.00 - 5.21 x10(6)/mc L [facility] Hemoglobin 11.2(L) 11.7 - 15.5 gm/dL [facility] Hematocrit 34.2(L) 35.7 - 45.8 % [facility] Mean Cell Volume 87.9 82.6 - 94.4 [facility] Mean Cell Hemoglobin 28.8 27.1 - 32.0 pg [facility] Mean Cell Hemoglobin Concentration 32.7 31.7 - 35.0 gm/dL [facility] Platelet 249 145 - 357 x10(3)/mc L [facility] RDW Standard Deviation 44.1 37.0 - 46.0 [facility] RDW coefficient of variation 13.6 11.5 - 14.1 % [facility] Mean Platelet Volume 10.5 7.6 - 12.9 [facility] NRBC% auto 0.0 % [facility] NRBC Absolute 0.000 0.000 - 0.000 x10(3)/ L [facility] Blood specimen (specimen) 11/01/2019 4:54 AM EST 11/01/2019 5:02 AM EST Narrative Resulting Agency Comment Spec In Lab Kerri NELSON HEMATOLOGY ORDERABLE S [facility] [place] [address] * Magnesium (11/01/2019 4:54 AM EST) Magnesium 0.83 0.69 - 1.07 mmol/L [facility] Blood specimen (specimen) 11/01/2019 4:54 AM EST 11/01/2019 5:02 AM EST Narrative Resulting Agency Comment Spec In Lab Asa Wiseman MD CHEMISTRY ORDERABL ES [facility] [place] [address] * (ABNORMAL) BMP w/fasting Glucose (11/01/2019 4:54 AM EST) Glucose Fasting 94 65 - 99 mg/dL [facility] Comment: ?Fasting* Glucose Interpretive Criteria Normal ?65-99 mg/dL Impaired Fasting glucose ?100-125 mg/dL Consistent with Diabetes Mellitus ? >or= 126 mg/dL *Fasting is defined as no caloric intake for at least 8 hours In the absence of unequivocal hyperglycemia a plasma glucose value of >or= 126 mg/dL should be repeated on a subsequent day. Diagnosis and Classification of Diabetes Mellitus, Position Statement from the [employer]. ??Diabetes Care, Volume 33, Supplement 1, Sep 2009 Blood Urea Nitrogen 12 8 - 18 mg/dL [facility] Creatinine 0.50(L) 0.70 - 1.20 mg/dL [facility] Sodium 137 135 - 145 mmol/L [facility] Potassium 3.6 3.5 - 5.0 mmol/L [facility] Comment: Please note: ??Patients with WBC >100,000 may have falsely elevated Potassium levels. ??For accurate Potassium quantification in these patients send serum separator tube (gold top) for subsequent determinations. ??Contact the Clinical Chemistry Laboratory if there are any questions. Chloride 105 98 - 107 mmol/L [facility] Carbon Dioxide 21(L) 22 - 31 mmol/L [facility] Anion Gap 11 5 - 15 mmol/L [facility] Calcium 9.7 8.5 - 10.5 mg/dL [facility] Est Glomerular Filtration Rate 113 >=60 mL/min/1. 73 m?? [facility] Comment: The eGFR was calculated using the CKD-EPI equation. As with all creatinine based estimates of kidney function, eGFR values calculated with the CKD-EPI equation are not accurate in patients with acute kidney failure, extremes of body mass or the acutely ill. http://Shopzilla/[facility] CITYnkf eGFR 131 >=60 mL/min/1. 73 m?? [facility] Comment: The eGFR was calculated using the CKD-EPI equation. As with all creatinine based estimates of kidney function, eGFR values calculated with the CKD-EPI equation are not accurate in patients with acute kidney failure, extremes of body mass or the acutely ill. http://Shopzilla/[facility] Blood specimen (specimen) 11/01/2019 4:54 AM EST 11/01/2019 5:02 AM EST Narrative Resulting Agency Comment Spec In Lab Asa Wiseman MD CHEMISTRY ORDERABL ES [facility] [place] [address] * Hepatic Function Panel (11/01/2019 4:54 AM EST) Protein, Total 6.2 6.1 - 8.0 gm/dL [facility] Albumin 3.7 3.2 - 5.2 gm/dL [facility] Aspartate Aminotransferase 10 0 - 30 unit/L [facility] Alanine Aminotransferase 7 0 - 30 unit/L [facility] Alkaline Phosphatase 53 35 - 105 unit/L [facility] Bilirubin, Total 0.2 0.2 - 1.3 mg/dL [facility] Bilirubin, Direct <0.1 0.0 - 0.3 mg/dL [facility] Blood specimen (specimen) 11/01/2019 4:54 AM EST 11/01/2019 5:02 AM EST Narrative Resulting Agency Comment Spec In Lab Asa Wiseman MD CHEMISTRY ORDERABL ES Performing Organization Address [facility] Co de Phone Number [facility] [place] [address] * Triglyceride (11/01/2019 4:54 AM EST) Triglyceride 122 mg/dL [facility] Comment: Average Risk/Lower Risk: <150 mg/dL Borderline High Risk: 150-199 mg/dL High Risk: 200-499 mg/dL Very High Risk: >rn=865 mg/dL Blood specimen (specimen) 11/01/2019 4:54 AM EST 11/01/2019 5:02 AM EST Narrative Resulting Agency Comment Spec In Lab Asa Wiseman MD CHEMISTRY ORDERABL ES Performing Organization Address [facility] de Phone Number [facility] [place] [address] * HDL/Cholesterol Profile (11/01/2019 4:54 AM EST) Cholesterol, Total 167 mg/dL [facility] Comment: Lower Risk: <200 mg/dL Average Risk: 200-239 mg/dL Higher Risk: >at=725 mg/dL HDL Cholesterol 34 mg/dL [facility] Comment: Males: ?? Higher Risk: <40 mg/dL Females: ?? HIgher Risk: <50 mg/dL Cholesterol/HDL Ratio 4.9 ratio [facility] Chol/HDL Interpretation See Note [facility] Comment: Lipid management should be guided by a patient? s ASCVD risk, goals and preferences. ACC/AHA Guidelines recommend high intensity statin if clinical ASCVD or LDL greater than or equal to 190 mg/dL. http://Shoes4you.com/INW-NPD-Ilspvmkkr Measure LDL if Total Cholesterol minus HDL Cholesterol is greater than 220 mg/dL. Adults aged 40-75 with LDL 70-189 mg/dL should have their 10 year ASCVD risk estimated with the ACC/AHA ASCVD risk first aid nurse http://tools.acc.org/JFDOE-Txar-Ctxciwaoz/ Statin should be discussed if risk greater than or equal to 7.5% in non-diabetics. With diabetes, moderate intensity statin is recommended if risk less than 7.5%, high intensity if risk greater than or equal to 7.5%. Annual lipid monitoring on statins is not necessary. Lifestyle modification is a critical component of ASCVD risk reduction. Blood specimen (specimen) 11/01/2019 4:54 AM EST 11/01/2019 5:02 AM EST Narrative Resulting Agency Comment Spec In Lab Asa Wiseman MD CHEMISTRY ORDERABL ES Performing Organization Address [facility] Co de Phone Number [facility] [place] [address] * LDL Cholesterol, Direct (11/01/2019 4:54 AM EST) LDL Cholesterol, Direct 111 mg/dL [facility] Comment: Lowest Risk: <100 mg/dL Lower Risk: 100-129 mg/dL Borderline High Risk: 130-159 mg/dL High Risk: 160-189 mg/dL Very High Risk: >ee=382 mg/dL Blood specimen (specimen) 11/01/2019 4:54 AM EST 11/01/2019 5:02 AM EST Narrative Resulting Agency Comment Spec In Lab Asa Wiseman MD CHEMISTRY ORDERABL ES Performing Organization Address [facility] Co de Phone Number [facility] [place] [address] * Hemoglobin A1c (11/01/2019 4:54 AM EST) Hemoglobin A1c 5.3 4.3 - 5.6 % [facility] Comment: Reference Range: 4.3 - 5.6% 5.7 - 6.4% - Increased Risk of Developing Diabetes Mellitus >= 6.5% - Consistent with diagnosis of Diabetes Mellitus In the absence of hyperglycemia (i.e. plasma glucose > 200 mg/dL) or classic symptoms of hyperglycemia a repeat measurement of HbA1c should be performed on a separate sample to confirm the diagnosis. Diagnosis and Classification of Diabetes Mellitus, Diabetes Care 2013; 36: Suppl. 1, L37-98 Estimated Average Glucose 105 mg/dL [facility] Comment: eAG equivalents for HbA1c percentages: HbA1c(%) ?eAG(mg/dL) 6.0 ?126 6.5 ?140 7.0 ?154 7.5 ?169 8.0 ?183 8.5 ?197 9.0 ?212 9.5 ?226 10.0 ? 240 Limitations: The eAG calculation has not been validated on women, individuals below 18 years old and above 70 years old, and individuals with hemoglobinopathies. Additional resources are available on the ADA website. Anthony MIRANDA, Manuel J, Jovanny R, et al. ??Translating the A1C assay into estimated average glucose values. ??Diabetes Care 2008:31(8):7360-0739. Blood specimen (specimen) 11/01/2019 4:54 AM EST 11/01/2019 5:02 AM EST Narrative Resulting Agency Comment Spec In Lab Asa Wiseman MD CHEMISTRY ORDERABL ES [facility] [place] [address] * Heparin (unfractionated) Level (10/31/2019 11:01 PM EST) Pathologist [facility] UF Heparin 0.38 IU/mL [facility] Comment: Guidelines for therapeutic unfractionated heparin levels are summarized below. Heparin (Anti-Xa) levels should be determined in a plasma sample that has been drawn 6 hours after a dose change i.e., steady-state has been reached. DRUG ?Dosing Schedule ? Target Peak Steady-State ?Heparin (Anti-Xa) Levels (Units/mL) Unfractionated ?Continuous infusion ?0.3-0.7 Heparin ?0.3-0.6 for some neurology indications Blood specimen (specimen) 10/31/2019 11:01 PM EST 10/31/2019 11:05 PM EST Narrative Resulting Agency Comment Spec In Lab Asa Wiseman MD HEMATOLOGY ORDERAB LES Performing Organization Address [facility] de Phone Number [facility] [place] [address] * CK (10/31/2019 11:01 PM EST) [facility] Creatine Kinase 65 0 - 160 unit/L [facility] Blood specimen (specimen) 10/31/2019 11:01 PM EST 10/31/2019 11:05 PM EST Narrative Resulting Agency Comment Spec In Lab Asa Wiseman MD CHEMISTRY ORDERABL ES Performing Organization Address [facility] Co de Phone Number [facility] [place] [address] * Troponin (10/31/2019 11:01 PM EST) [facility] Troponin-T <0.01 0.00 - 0.00 ng/mL [facility] Comment: The 99th percentile for Troponin T is less than 0.01 ng/mL, any detectable cTnT concentration using this assay should be considered elevated. According to the third universal definition of myocardial infarction the following criteria with a clinical presentation consistent with acute myocardial ischemia meets the diagnosis for a myocardial infarction ([place]). Detection of a rise and/or fall of cTnT, with at least one value greater than the 99th percentile (> or = 0.01) and with at least one of the following ?? Symptoms of ischemia ?? New or presumed new significant IC-fvfscpj-K wave (ST-T) changes or new left bundle branch block (LBBB) ?? Development of pathologic Q waves in the ECG ?? Imaging evidence of new loss of viable myocardium or new regional wall motion abnormality ?? Identification of an intracoronary thrombus by angiography or autopsy Samples for cTnT testing should be obtained serially upon first assessment and again 3 to 6 hours later. If the clinical suspicion is high and previous samples have been negative an additional sample may be indicated. Reference: [place] Definition of Myocardial Infarction. Journal of the [employer] 2012;60:1581-98 Blood specimen (specimen) 10/31/2019 11:01 PM EST 10/31/2019 11:05 PM EST Narrative Resulting Agency Comment Spec In Lab Asa Wiseman MD CHEMISTRY ORDERABL ES [facility] [place] [address] * Heparin (unfractionated) Level (10/31/2019 5:19 PM EST) [facility] UF Heparin 0.34 IU/mL [facility] Comment: Guidelines for therapeutic unfractionated heparin levels are summarized below. Heparin (Anti-Xa) levels should be determined in a plasma sample that has been drawn 6 hours after a dose change i.e., steady-state has been reached. DRUG ?Dosing Schedule ? Target Peak Steady-State ?Heparin (Anti-Xa) Levels (Units/mL) Unfractionated ?Continuous infusion ?0.3-0.7 Heparin ?0.3-0.6 for some neurology indications Blood specimen (specimen) 10/31/2019 5:19 PM EST 10/31/2019 5:56 PM EST Narrative Resulting Agency Comment Spec In Lab Asa Wiseman MD HEMATOLOGY ORDERAB LES Performing Organization Address [facility] de Phone Number [facility] [place] [address] * CK (10/31/2019 5:19 PM EST) Creatine Kinase 72 0 - 160 unit/L [facility] Blood specimen (specimen) 10/31/2019 5:19 PM EST 10/31/2019 5:56 PM EST Narrative Resulting Agency Comment Spec In Lab Asa Wiseman MD CHEMISTRY ORDERABL ES Performing Organization Address [facility] Phone Number [facility] [place] [address] * Troponin (10/31/2019 5:19 PM EST) Troponin-T <0.01 0.00 - 0.00 ng/mL [facility] Comment: The 99th percentile for Troponin T is less than 0.01 ng/mL, any detectable cTnT concentration using this assay should be considered elevated. According to the third universal definition of myocardial infarction the following criteria with a clinical presentation consistent with acute myocardial ischemia meets the diagnosis for a myocardial infarction ([place]). Detection of a rise and/or fall of cTnT, with at least one value greater than the 99th percentile (> or = 0.01) and with at least one of the following ?? Symptoms of ischemia ?? New or presumed new significant MS-ijenzki-I wave (ST-T) changes or new left bundle branch block (LBBB) ?? Development of pathologic Q waves in the ECG ?? Imaging evidence of new loss of viable myocardium or new regional wall motion abnormality ?? Identification of an intracoronary thrombus by angiography or autopsy Samples for cTnT testing should be obtained serially upon first assessment and again 3 to 6 hours later. If the clinical suspicion is high and previous samples have been negative an additional sample may be indicated. Reference: [place] Definition of Myocardial Infarction. Journal of the [employer] 2012;60:1581-98 Blood specimen (specimen) 10/31/2019 5:19 PM EST 10/31/2019 5:56 PM EST Narrative Resulting Agency Comment Spec In Lab Asa Wiseman MD CHEMISTRY ORDERABL ES Performing Organization Address [facility] Co de Phone Number [facility] [place] [address] * EKG 12 Lead (10/31/2019 11:30 AM EST) Ventricular rate 71 BPM MUSE SYSTEM Atrial Rate 71 BPM MUSE SYSTEM P-R Interval 144 ms MUSE SYSTEM QRS Duration 104 ms MUSE SYSTEM Q-T Interval 412 ms MUSE SYSTEM QTC Calculated (Bezet) 447 ms MUSE SYSTEM Calculated P [place] 65 degrees MUSE SYSTEM Calculated R [place] 67 degrees MUSE SYSTEM Calculated T [place] 64 degrees MUSE SYSTEM INTERPRETATION Normal sinus rhythm Intraventricul ar conduction delay Nonspecific T wave abnormality Abnormal ECG No previous ECGs available Confirmed by MD Caroline, Abhishek Gallego ([id number]) on 10/31/2019 11:52:13 AM MUSE SYSTEM 10/31/2019 11:3 0 AM EST 10/31/2019 11:52 AM EST Mk Tate MD ECG ORDERABLES Performing Organization Address [facility] Co de Phone Number MUSE SYSTEM * TSH (10/31/2019 10:51 AM EST) Thyroid Stimulating Hormone 1.82 0.27 - 4.20 mcIU/mL [facility] Blood specimen (specimen) Venous Draw / Unknown 10/31/2019 10:51 AM EST 10/31/2019 11:06 AM EST Narrative Resulting Agency Comment Spec In Lab Kerri NELSON CHEMISTRY ORDERABLES Performing Organization Address [facility] Co de Phone Number [facility] [place] [address] * Heparin (unfractionated) Level (10/31/2019 10:51 AM EST) UF Heparin 0.37 IU/mL [facility] Comment: Guidelines for therapeutic unfractionated heparin levels are summarized below. Heparin (Anti-Xa) levels should be determined in a plasma sample that has been drawn 6 hours after a dose change i.e., steady-state has been reached. DRUG ?Dosing Schedule ? Target Peak Steady-State ?Heparin (Anti-Xa) Levels (Units/mL) Unfractionated ?Continuous infusion ?0.3-0.7 Heparin ?0.3-0.6 for some neurology indications Specimen drawn more than one hour prior to testing. ??Results may not be reliable for heparin monitoring. ??(May be falsely low) Comment added. LJB 10/31/19 12:40 Corrected from 0.37 IU/mL [NA] on 10/31/19 12:40:32 EST by Delores Acevedo Blood specimen (specimen) 10/31/2019 10:51 AM EST 10/31/2019 10:59 AM EST Narrative Resulting Agency Comment Spec In Lab Asa Wiseman MD HEMATOLOGY ORDERAB LES Performing Organization Address City/[facility]/ZIP Co de [place] [address] * (ABNORMAL) Differential, Automated (10/31/2019 10:51 AM EST) Pathologist [facility] Neutrophil % 78.9 % [facility] Neutrophil Absolute 6.17(H) 1.70 - 6.10 x10(3)/ L [facility] Lymph % 12.6 % [facility] Lymphocytes Abs 1.0 0.9 - 3.2 x10(3)/ L [facility] Monocyte % 7.0 % [facility] Monocyte Abs 0.6 0.3 - 0.9 x10(3)/[facility] Eos % 0.6 % [facility] Eosinophils Abs 0.0 0.0 - 0.4 x10(3)/[facility] Basophil % 0.6 % [facility] Baso Absolute 0.0 0.0 - 0.1 x10(3)/ L [facility] Immature Gran % 0.30 % [facility] Comment: Immature granulocytes(IG's)percentage and absolute count will include metamyelocytes, myelocytes, and promyelocytes. Blood smears from CBCs yielding IG's will be scanned manually for concordance. If this scan disagrees with the automated IG or if promyelocytes are noted, a manual differential will be performed. Immature Gran Absolute 0.02 0.00 - 0.04 x10(3)/ L [facility] Blood specimen (specimen) 10/31/2019 10:51 AM EST 10/31/2019 10:59 AM EST Narrative Resulting Agency Comment Spec In Lab Kerri NELSON HEMATOLOGY ORDERABLE S [facility] [place] [place] [address] * (ABNORMAL) Hemogram (10/31/2019 10:51 AM EST) [facility] White Blood Cell 7.8 4.0 - 9.5 x10(3)/ L [facility] Red Blood Cell 3.82(L) 4.00 - 5.21 x10(6)/ L [facility] Hemoglobin 11.1(L) 11.7 - 15.5 gm/dL [facility] Hematocrit 33.8(L) 35.7 - 45.8 % [facility] Mean Cell Volume 88.5 82.6 - 94.4 fL [facility] Mean Cell Hemoglobin 29.1 27.1 - 32.0 pg [facility] Mean Cell Hemoglobin Concentration 32.8 31.7 - 35.0 gm/dL [facility] Platelet 288 145 - 357 x10(3)/[facility] RDW Standard Deviation 44.6 37.0 - 46.0 [facility] RDW coefficient of variation 13.8 11.5 - 14.1 % [facility] Mean Platelet Volume 10.4 7.6 - 12.9 [facility] NRBC% auto 0.0 % [facility] NRBC Absolute 0.000 0.000 - 0.000 x10(3)/[facility] Blood specimen (specimen) 10/31/2019 10:51 AM EST 10/31/2019 10:59 AM EST Narrative Resulting Agency Comment Spec In Lab Kerri NELSON HEMATOLOGY ORDERABLE S Performing Organization Address City/State/[facility] Co de Phone Number [facility] [place] [place] [address] * CK (10/31/2019 10:51 AM EST) Creatine Kinase 69 0 - 160 unit/L [facility] Blood specimen (specimen) 10/31/2019 10:51 AM EST 10/31/2019 10:59 AM EST Narrative Resulting Agency Comment Spec In Lab Asa Wiseman MD CHEMISTRY ORDERABL ES Performing Organization Address [facility] Co de Phone Number [facility] [place] [place] [address] * Troponin (10/31/2019 10:51 AM EST) Pathologist [facility] Troponin-T <0.01 0.00 - 0.00 ng/mL [facility] Comment: The 99th percentile for Troponin T is less than 0.01 ng/mL, any detectable cTnT concentration using this assay should be considered elevated. According to the third universal definition of myocardial infarction the following criteria with a clinical presentation consistent with acute myocardial ischemia meets the diagnosis for a myocardial infarction ([place]). Detection of a rise and/or fall of cTnT, with at least one value greater than the 99th percentile (> or = 0.01) and with at least one of the following ?? Symptoms of ischemia ?? New or presumed new significant MS-fndqozq-H wave (ST-T) changes or new left bundle branch block (LBBB) ?? Development of pathologic Q waves in the ECG ?? Imaging evidence of new loss of viable myocardium or new regional wall motion abnormality ?? Identification of an intracoronary thrombus by angiography or autopsy Samples for cTnT testing should be obtained serially upon first assessment and again 3 to 6 hours later. If the clinical suspicion is high and previous samples have been negative an additional sample may be indicated. Reference: [place] Definition of Myocardial Infarction. Journal of the [employer] 2012;60:1581-98 Blood specimen (specimen) 10/31/2019 10:51 AM EST 10/31/2019 10:59 AM EST Narrative Resulting Agency Comment Spec In Lab Asa Wiseman MD CHEMISTRY ORDERABL ES Performing Organization Address [facility] Co de Phone Number [facility] [place] [place] [address] * (ABNORMAL) APTT (10/31/2019 10:51 AM EST) Pathologist [facility] Partial Thromboplastin Time 72(H) 25 - 37 sec [facility] Comment: The PTT is NOT appropriate for heparin monitoring. Use the Anti-Xa level for heparin monitoring (HEP UFH) or LMWH monitoring (HEP LMW). A PTT less than 37 seconds generally indicates adequate hemostasis. Blood specimen (specimen) 10/31/2019 10:51 AM EST 10/31/2019 10:59 AM EST Narrative Resulting Agency Comment Spec In Lab Mk Tate MD HEMATOLOGY ORDERABLE S Performing Organization Address [facility] de Phone Number [facility] [place] [place] [address] * Prothrombin Time (10/31/2019 10:51 AM EST) Prothrombin Time 11.9 9.4 - 12.5 sec [facility] International Normalization Ratio 1.0 [facility] Comment: An INR <2.0 indicates adequate procoagulant activity for hemostasis in most patients without underlying bleeding disorders, though the INR may not adequately reflect hemostatic capacity in patients with liver disease and synthetic impairment. The recommended target INR range for therapeutic anticoagulation is 2.0 ? 3.0 for most applications, though lower and higher ranges may be appropriate depending on clinical circumstances. Blood specimen (specimen) 10/31/2019 10:51 AM EST 10/31/2019 10:59 AM EST Narrative Resulting Agency Comment Spec In Lab Mk Tate MD HEMATOLOGY ORDERABLE S Performing Organization Address [facility] de Phone Number [facility] [place] [place] [address] * pro-Brain Natriuretic Peptide (10/31/2019 10:51 AM EST) NT-proBNP 55 <=125 pg/mL [facility] Blood specimen (specimen) 10/31/2019 10:51 AM EST 10/31/2019 10:59 AM EST Narrative Resulting Agency Comment Spec In Lab Mk Tate MD CHEMISTRY ORDERABLES Performing Organization Address [facility] Co de Phone Number [facility] [place] [place] [address] * (ABNORMAL) Basic Metabolic Panel (non-fasting) (10/31/2019 10:51 AM EST) Glucose 79 65 - 199 mg/dL [facility] Comment:Diabetes: >=200 mg/d L plus symptoms Blood Urea Nitrogen 10 8 - 18 mg/dL [facility] Creatinine 0.58(L) 0.70 - 1.20 mg/dL [facility] Sodium 139 135 - 145 mmol/L [facility] Potassium 3.8 3.5 - 5.0 mmol/L [facility] Comment: Please note: ??Patients with WBC >100,000 may have falsely elevated Potassium levels. ??For accurate Potassium quantification in these patients send serum separator tube (gold top) for subsequent determinations. ??Contact the Clinical Chemistry Laboratory if there are any questions. Chloride 106 98 - 107 mmol/L [facility] Carbon Dioxide 15(L) 22 - 31 mmol/L [facility] Anion Gap 18(H) 5 - 15 mmol/L [facility] Calcium 9.3 8.5 - 10.5 mg/dL [facility] Est Glomerular Filtration Rate 107 >=60 mL/min/1. 73 m?? [facility] Comment: The eGFR was calculated using the CKD-EPI equation. As with all creatinine based estimates of kidney function, eGFR values calculated with the CKD-EPI equation are not accurate in patients with acute kidney failure, extremes of body mass or the acutely ill. [email or web address] CITYnkf eGFR 125 >=60 mL/min/1. 73 m?? [facility] Comment: The eGFR was calculated using the CKD-EPI equation. As with all creatinine based estimates of kidney function, eGFR values calculated with the CKD-EPI equation are not accurate in patients with acute kidney failure, extremes of body mass or the acutely ill. http://[email or web address]/DHnkf Blood specimen (specimen) 10/31/2019 10:51 AM EST 10/31/2019 10:59 AM EST Narrative Resulting Agency Comment Spec In Lab Mk Tate MD CHEMISTRY ORDERABLES [facility] [place] [place] [address] documented in this encounter Visit Diagnoses Diagnosis Non-ST elevation myocardial infarction (NSTEMI) Acute myocardial infarction, subendocardial infarction, episode of care unspecified NSTEMI (non-ST elevated myocardial infarction) Acute myocardial infarction, subendocardial infarction, episode of care unspecified documented in this encounter Admitting Diagnoses Diagnosis NSTEMI (non-ST elevated myocardial infarction) Acute myocardial infarction, subendocardial infarction, episode of care unspecified documented in this encounter Administered Medications Inactive Administered Medications - up to 3 most recent administrations Medication Order MAR Action Action Date Dose Rate Site acetaminophen (Tylenol) tablet 650 mg 650 mg, Oral, EVERY 4 HOURS PRN, Starting on 10/31/19 at 1146, Until Fri11/01/19 at 1950, Pain, Headaches, Maximum dose of acetaminophen is 4000 mg from all sources in 24 hours., Routine Given 10/31/2019 3:48 PM EST 650 mg aspirin EC tablet 81 mg 81 mg, Oral, DAILY, First dose on 10/31/19 at 1215, Until Discontinued, Routine Given 11/01/2019 9:00 AM EST 81 mg Given 10/31/2019 12:15 PM EST 81 mg atorvastatin (Lipitor) tablet 40 mg 40 mg, Oral, EVERY EVENING, First dose on 10/31/19 at 1700, Until Discontinued, Routine Given 10/31/2019 5:31 PM EST 40 mg clonazePAM (KlonoPIN) disintegrating tablet 0.25 mg 0.25 mg, Oral, 2 TIMES DAILY PRN, Starting on 10/31/19 at 1146, Until Fri11/01/19 at 1950, Anxiety, Routine Given 10/31/2019 8:33 PM EST 0.25 mg clopidogreL (Plavix) tablet 75 mg 75 mg, Oral, EVERY EVENING, First dose on 10/31/19 at 1700, Until Discontinued, Routine Given 10/31/2019 5:31 PM EST 75 mg escitalopram (Lexapro) tablet 30 mg 30 mg, Oral, DAILY, First dose on Fri11/01/19 at 0900, Until Discontinued, Routine Given 11/01/2019 9:44 AM EST 30 mg heparin (porcine) injection 0-4,000 Units 0-4,000 Units, Intravenous, BOLUS PER HEPARIN PROTOCOL, Starting on 10/31/19 at 1146, Until 11/01/19 at 1950, Per Protocol, START ADJUSTMENT SCHEDULE 6 HOURS AFTER STARTING INFUSION Heparin UFH Level between 0.1 - 0.29 IU/mL: Bolus 1,900 units Heparin UFH Level less than 0.1 IU/mL: Bolus 3,850 units, Routine heparin 25,000 units in sodium chloride 0.45% 500 mL infusion 0-5,000 Units/hr (0-100 mL/hr), Intravenous, CONTINUOUS, Starting on 10/31/19 at 1215, Until 11/01/19 at 1950, BEGIN infusion at 750 units per hr (12 units/kg/hr). MAX INITIAL infusion rate is 1,000 units/hr. Target Heparin UFH Level (anti-Xa activity) = 0.3 - 0.7 IU/mL Start adjustment schedule 6 hours after starting infusion. If Heparin UFH Level is: - less than 0.1 IU/mL, administer PRN bolus and increase rate by 250 units per hr (4 units/kg/hr) - 0.1 - 0.29 IU/mL, administer PRN bolus and increase rate by 150 units per hr (2 units/kg/hr) - 0.3 - 0.7 IU/mL, No Change - 0.71 - 0.85 IU/mL, decrease rate by 50 units per hr (1 units/kg/hr) - 0.86 - 1.05 IU/mL, stop infusion for 30 minutes, then decrease rate by 150 units per hr (2 units/kg/hr) - Greater than 1.05 IU/mL, stop infusion for 60 minutes, then decrease rate by 200 units per hour (3 units/kg/hr) Repeat Heparin UFH Level 6 hours after initiating heparin. Then 6 hours after each dose adjustment. When 2 consecutive Heparin UFH Level within target range of 0.3 - 0.7 IU/mL, change Heparin UFH Level to once every 24 hours with A.M. labs while on heparin. RN to order required Heparin UFH Level - Per Protocol, Routine, Indication: ACS (STEMI vs NSTEMI vs UA) New Bag 10/31/2019 12:18 PM EST 750 Units/hr 15 mL/hr levothyroxine (Synthroid) tablet 75 mcg 75 mcg, Oral, EVERY MORNING, First dose on Fri11/01/19 at 0600, Until Discontinued, Routine Given 11/01/2019 6:28 AM EST 75 mcg lisinopriL (Prinivil;Zestril) tablet 5 mg 5 mg, Oral, DAILY, First dose on Fri11/01/19 at 0900, Until Discontinued, Routine Given 11/01/2019 9:45 AM EST 5 mg metoprolol tartrate (Lopressor) tablet 12.5 mg 12.5 mg, Oral, EVERY 6 HOURS SCHEDULED, First dose on Fri10/31/19 at 1215, Until Discontinued, Hold for SBP less than 90 mmHG or HR less than 50 beats per minute, Routine Given 11/01/2019 11:42 AM EST 12.5 mg Given 10/31/2019 11:04 PM EST 12.5 mg Given 10/31/2019 5:31 PM EST 12.5 mg nitroGLYcerin (Nitrostat) disintegrating tablet 0.4 mg 0.4 mg, Sublingual, EVERY 5 MIN PRN, Starting on Fri11/01/19 at 0855, Until Fri11/01/19 at 1950, Chest pain, May repeat every 5 minutes for a total of three doses. Notify provider if chest pain not relieved with nitroglycerin. Do not administer nitroglycerin if the patient has received or taken phosphodiesterase (PDE-5) inhibitors such as sildenafil, tadalafil or vardenafil within the last 24 to 72 hours., Recovery (Recovery-Hospital Unit), Routine pantoprazole EC (Protonix) tablet 40 mg 40 mg, Oral, DAILY, First dose on Fri11/01/19 at 0900, Until Discontinued, DO NOT CRUSH OR OPEN Given 11/01/2019 9:44 AM EST 40 mg perflutren protein-A microspheres (OPTISON) 0.22 mg/mL injection 2.7 mL 2.7 mL, Intravenous, ONCE PRN, 1 dose, Starting on Fri11/01/19 at 0913, Until Fri11/01/19 at 1950, for enhancement of sub-optimal echo images, Echo Lab (Intra-Procedure), Routine sodium chloride 0.9% infusion 150 mL/hr, Intravenous, CONTINUOUS, Starting on Fri11/01/19 at 0915, Until Fri11/01/19 at 1114, Recovery (Recovery-Hospital Unit) New Bag 11/01/2019 9:00 AM EST 150 mL/hr 150 mL /hr documented in this encounter Active and Recently Administered Medications Times are shown in EST. Scheduled Medication Order 10/30/2019 10/31/2019 11/01/2019 aspirin EC tablet 81 mg 81 mg, Oral, DAILY, First dose on 10/31/19 at 1215, Until Discontinued, Routine 1215 (Given - Provider: Caryn Cash RN) 0755 (MAR Hold - Provider: Admin Adt - Reason: Transfer to a Procedural area)0900 (Given - Provider: Jason Burgos RN - Comment: given in cath)0919 (MAR Unhold - Provider: Admin Adt) atorvastatin (Lipitor) tablet 40 mg 40 mg, Oral, EVERY EVENING, First dose on 10/31/19 at 1700, Until Discontinued, Routine 1731 (Given - Provider: Caryn Cash RN) 0755 (MAR Hold - Provider: Admin Adt - Reason: Transfer to a Procedural area)0919 (MAR Unhold - Provider: Admin Adt)1700 (Due - Provider: Admin Adt) clopidogreL (Plavix) tablet 75 mg 75 mg, Oral, EVERY EVENING, First dose on 10/31/19 at 1700, Until Discontinued, Routine 1731 (Given - Provider: Caryn Cash RN) 0755 (MAR Hold - Provider: Admin Adt - Reason: Transfer to a Procedural area)0919 (MAR Unhold - Provider: Admin Adt)1700 (Due - Provider: Admin Adt) escitalopram (Lexapro) tablet 30 mg 30 mg, Oral, DAILY, First dose on 11/01/19 at 0900, Until Discontinued, Routine 0755 (MAR Hold - Provider: Admin Adt - Reason: Transfer to a Procedural area)0900 (Automatically Held - Provider: Admin Adt)0919 ([facility] Unhold - Provider: Admin Adt)0944 (Given - Provider: Jason Burgos RN) levothyroxine (Synthroid) tablet 75 mcg 75 mcg, Oral, EVERY MORNING, First dose on 11/01/19 at 0600, Until Discontinued, Routine 0628 (Given - Provid er: Gilda Wylie RN)0755 (MAR Hold - Provider: Admin Adt - Reason: Transfer to a Procedural area)0919 ([facility] Unhold - Provider: Admin Adt) lisinopriL (Prinivil;Zestril) tablet 5 mg 5 mg, Oral, DAILY, First dose on Fri11/01/19 at 0900, Until Discontinued, Routine 0755 ([facility] Hold - Provider: Admin Adt - Reason: Transfer to a Procedural area)0900 (Automatically Held - Provider: Admin Adt)0919 ([facility] Unhold - Provider: Admin Adt)0945 (Given - Provider: Jason Burgos, RN) metoprolol tartrate (Lopressor) tablet 12.5 mg 12.5 mg, Oral, EVERY 6 HOURS SCHEDULED, First dose on Fri10/31/19 at 1215, Until Discontinued, Hold for SBP less than 90 mmHG or HR less than 50 beats per minute, Routine 1221 (Given - Provider: Caryn Cash, CHA)1731 (Given - Provider: Caryn Cash, CHA)2304 (Given - Provider: Gilda Wylie RN) 0600 (Not Given - Provider: Gilda Wylie RN - Reason: See comment - Comment: Bradycardic HRs 40s-50s)0755 ([facility] Hold - Provider: Admin Adt - Reason: Transfer to a Procedural area)0919 ([facility] Unhold - Provider: Admin Adt)1142 (Given - Provider: Jason Burgos, CHA) pantoprazole EC (Protonix) tablet 40 mg 40 mg, Oral, DAILY, First dose on Fri11/01/19 at 0900, Until Discontinued, DO NOT CRUSH OR OPEN 0755 ([facility] Hold - Provider: Admin Adt - Reason: Transfer to a Procedural area)0900 (Automatically Held - Provider: Admin Adt)0919 ([facility] Unhold - Provider: Admin Adt)0944 (Given - Provider: Jason Burgos, CHA) Continuous Medication Order 10/30/2019 10/31/2019 11/01/2019 heparin 25,000 units in sodium chloride 0.45% 500 mL infusion(Linked Group 1) 0-5,000 Units/hr (0-100 mL/hr), Intravenous, CONTINUOUS, Starting on Fri10/31/19 at 1215, Until Fri11/01/19 at 1950, BEGIN infusion at 750 units per hr (12 units/kg/hr). MAX INITIAL infusion rate is 1,000 units/hr. Target Heparin UFH Level (anti-Xa activity) = 0.3 - 0.7 IU/mL Start adjustment schedule 6 hours after starting infusion. If Heparin UFH Level is: - less than 0.1 IU/mL, administer PRN bolus and increase rate by 250 units per hr (4 units/kg/hr) - 0.1 - 0.29 IU/mL, administer PRN bolus and increase rate by 150 units per hr (2 units/kg/hr) - 0.3 - 0.7 IU/mL, No Change - 0.71 - 0.85 IU/mL, decrease rate by 50 units per hr (1 units/kg/hr) - 0.86 - 1.05 IU/mL, stop infusion for 30 minutes, then decrease rate by 150 units per hr (2 units/kg/hr) - Greater than 1.05 IU/mL, stop infusion for 60 minutes, then decrease rate by 200 units per hour (3 units/kg/hr) Repeat Heparin UFH Level 6 hours after initiating heparin. Then 6 hours after each dose adjustment. When 2 consecutive Heparin UFH Level within target range of 0.3 - 0.7 IU/mL, change Heparin UFH Level to once every 24 hours with A.M. labs while on heparin. RN to order required Heparin UFH Level - Per Protocol, Routine, Indication: ACS (STEMI vs NSTEMI vs UA) 1218 (New Bag - Provider: Caryn Cash RN) 0755 (NOV Hold - Provider: Admin Adt - Reason: Transfer to a Procedural area)0919 ([facility] Unhold - Provider: Admin Adt) sodium chloride 0.9% infusion 150 mL/hr, Intravenous, CONTINUOUS, Starting on Fri11/01/19 at 0915, Until Fri11/01/19 at 1114, Recovery (Recovery-Hospital Unit) 0900 (New Bag - Provider: Vickie Zazueta RN) PRN Medication Order 10/30/2019 10/31/2019 11/01/2019 acetaminophen (Tylenol) tablet 650 mg 650 mg, Oral, EVERY 4 HOURS PRN, Starting on 10/31/19 at 1146, Until 11/01/19 at 1950, Pain, Headaches, Maximum dose of acetaminophen is 4000 mg from all sources in 24 hours., Routine 1548 (Given - Provider: Caryn Cash RN) 0755 (NOV Hold - Provider: Admin Adt - Reason: Transfer to a Procedural area)918 (NOV Unhold - Provider: Admin Adt) aspirin chewable tablet (CANCELED) ONCE PRN, Starting on 11/01/19 at 0812, Until Fri11/01/19 at 0919, Cath (Intra-Procedure), Routine 811 (Given - Provider: Tiny Mcpherson RN) clonazePAM (KlonoPIN) disintegrating tablet 0.25 mg 0.25 mg, Oral, 2 TIMES DAILY PRN, Starting on 10/31/19 at 1146, Until Fri11/01/19 at 1950, Anxiety, Routine 2032 (Given - Provider: Gilda Wylie RN) 754 (NOV Hold - Provider: Admin Adt - Reason: Transfer to a Procedural area)918 (NOV Unhold - Provider: Admin Adt) clopidogreL (Plavix) tablet (CANCELED) ONCE PRN, Starting on 11/01/19 at 0812, Until Fri11/01/19 at 0919, Cath (Intra-Procedure), Routine 811 (Given - Provider: Tiny Mcpherson RN) fentaNYL 50 mcg/mL multi-dose injection (CANCELED) ONCE PRN, Starting on 11/01/19 at 0815, Until Fri11/01/19 at 0845, Intra-Operative (Intra-Procedure), Routine 814 (Given - Provider: Cindy Mari RN) heparin (porcine) 1,000 unit/mL injection (CANCELED) ONCE PRN, Starting on 11/01/19 at 0829, Until 11/01/19 at 0845, Cath (Intra-Procedure), Routine 828 (Given - Provider: Heide Ricardo RN) heparin (porcine) injection 0-4,000 Units(Linked Group 1) 0-4,000 Units, Intravenous, BOLUS PER HEPARIN PROTOCOL, Starting on 10/31/19 at 1146, Until 11/01/19 at 1950, Per Protocol, START ADJUSTMENT SCHEDULE 6 HOURS AFTER STARTING INFUSION Heparin UFH Level between 0.1 - 0.29 IU/mL: Bolus 1,900 units Heparin UFH Level less than 0.1 IU/mL: Bolus 3,850 units, Routine 075 (MAR Hold - Provider: Admin Adt - Reason: Transfer to a Procedural area)918 ([facility] Unhold - Provider: Admin Adt) iohexoL (OMNIPAQUE) 350 mg/mL solution (CANCELED) ONCE PRN, Starting on Fri11/01/19 at 0843, Until Fri11/01/19 at 0845, Cath (Intra-Procedure), Routine 0843 (Given - Provider: Darnell Macias MD) midazolam (PF) (VERSED) multi-dose injection (CANCELED) ONCE PRN, Starting on Fri11/01/19 at 0814, Until Fri11/01/19 at 0845, Cath (Intra-Procedure), Routine 0814 (Given - Provider: Cindy Mari RN) nitroGLYcerin (Nitrostat) disintegrating tablet 0.4 mg 0.4 mg, Sublingual, EVERY 5 MIN PRN, Starting on Fri10/31/19 at 1146, Until Fri11/01/19 at 1950, Chest pain, May repeat every 5 minutes for a total of three doses. Notify provider if chest pain not relieved with nitroglycerin. Do not administer nitroglycerin if the patient has received or taken phosphodiesterase (PDE-5) inhibitors such as sildenafil, tadalafil or vardenafil within the last 24 to 72 hours., Routine 0755 ([facility] Hold - Provider: Admin Adt - Reason: Transfer to a Procedural area)0919 ([facility] Unhold - Provider: Admin Adt) nitroGLYcerin (Nitrostat) disintegrating tablet 0.4 mg 0.4 mg, Sublingual, EVERY 5 MIN PRN, Starting on Fri11/01/19 at 0855, Until Fri11/01/19 at 1950, Chest pain, May repeat every 5 minutes for a total of three doses. Notify provider if chest pain not relieved with nitroglycerin. Do not administer nitroglycerin if the patient has received or taken phosphodiesterase (PDE-5) inhibitors such as sildenafil, tadalafil or vardenafil within the last 24 to 72 hours., Recovery (Recovery-Hospital Unit), Routine nitroGLYcerin 100 mcg/mL intracoronary dilution (CANCELED) ONCE PRN, Starting on Fri11/01/19 at 0825, Until Fri11/01/19 at 0845, Cath (Intra-Procedure), Routine 0825 (Given - Provider: Rik Lai) perflutren protein-A microspheres (OPTISON) 0.22 mg/mL injection 2.7 mL 2.7 mL, Intravenous, ONCE PRN, 1 dose, Starting on Fri11/01/19 at 0913, Until Fri11/01/19 at 1950, for enhancement of sub-optimal echo images, Echo Lab (Intra-Procedure), Routine 0840 (Canceled Entry - Provider: Kassidy Willard - Reason: Entered in Error) verapamiL (ISOPTIN) injection (CANCELED) ONCE PRN, Starting on Fri11/01/19 at 0825, Until Fri11/01/19 at 0845, Administer over 2 Minutes, Cath (Intra-Procedure) 0825 (Given - Provider: Rik Lai) Linked Groups Order Group 1: heparin (porcine) injection 0-4,000 UnitsJump to med 0-4,000 Units, Intravenous, BOLUS PER HEPARIN PROTOCOL, Starting on Fri10/31/19 at 1146, Until Fri11/01/19 at 1950, Per Protocol, START ADJUSTMENT SCHEDULE 6 HOURS AFTER STARTING INFUSION Heparin UFH Level between 0.1 - 0.29 IU/mL: Bolus 1,900 units Heparin UFH Level less than 0.1 IU/mL: Bolus 3,850 units, Routine And heparin 25,000 units in sodium chloride 0.45% 500 mL infusionJump to med 0-5,000 Units/hr (0-100 mL/hr), Intravenous, CONTINUOUS, Starting on Fri10/31/19 at 1215, Until Fri11/01/19 at 1950, BEGIN infusion at 750 units per hr (12 units/kg/hr). MAX INITIAL infusion rate is 1,000 units/hr. Target Heparin UFH Level (anti-Xa activity) = 0.3 - 0.7 IU/mL Start adjustment schedule 6 hours after starting infusion. If Heparin UFH Level is: - less than 0.1 IU/mL, administer PRN bolus and increase rate by 250 units per hr (4 units/kg/hr) - 0.1 - 0.29 IU/mL, administer PRN bolus and increase rate by 150 units per hr (2 units/kg/hr) - 0.3 - 0.7 IU/mL, No Change - 0.71 - 0.85 IU/mL, decrease rate by 50 units per hr (1 units/kg/hr) - 0.86 - 1.05 IU/mL, stop infusion for 30 minutes, then decrease rate by 150 units per hr (2 units/kg/hr) - Greater than 1.05 IU/mL, stop infusion for 60 minutes, then decrease rate by 200 units per hour (3 units/kg/hr) Repeat Heparin UFH Level 6 hours after initiating heparin. Then 6 hours after each dose adjustment. When 2 consecutive Heparin UFH Level within target range of 0.3 - 0.7 IU/mL, change Heparin UFH Level to once every 24 hours with A.M. labs while on heparin. 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
--- OUTSIDE RECORDS SUMMARY | 2024-07-06 12:04 | XMS_ITS | Clinical Summary ---
Author Organization [facility] Address [facility] [place] [address] Care Team Providers Care Volunteer Manager Name Role Phone Maryanne Buckley Primary Care Provider +1- [phone] Allergies Active Allergy Reactions Criticality Noted Date Comments Prednisone 10/31/2019 Altered mental status Medications Medication Sig Dispensed Refills Start Date End Date Status escitalopram (Lexapro) 20 mg Tablet Take 30 mg by mouth daily. Active SUMAtriptan (Imitrex) 100 mg Tablet Take 100 mg by mouth as needed for Migraine. Initial dose: 25 mg, 50 mg, or 100 mg (take with fluids). May repeat dose after 2 hours. Max daily dose: 200 mg Active clonazePAM (KlonoPIN) 0.25 mg Tablet, Rapid Dissolve Take 0.25 mg by mouth 2 times daily as needed. Active lisinopriL (Prinivil;Zestril) 5 mg Tablet Take 5 mg by mouth daily. Active omeprazole (PriLOSEC) 20 mg Capsule, Delayed Release(E.C.) Take 20 mg by mouth daily. Active levothyroxine (Synthroid) 75 mcg Tablet Take 75 mcg by mouth daily. Active cholecalciferol, Vitamin D3, (Vitamin D3) 400 unit Tablet Take 400 Units by mouth daily. Active cetirizine (ZyrTEC) 10 mg Tablet Take 10 mg by mouth daily. Active aspirin EC 81 mg Tablet, Delayed Release (E.C.) Take 1 tablet by mouth daily. 30 tablet 3 11/02/2019 Active atorvastatin (Lipitor) 40 mg Tablet Take 1 tablet by mouth every evening. 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 [place] [address] Buffy Joseph, RN 04/06/2024 [place] [address] Josefina Osborne, RN Appointment 04/05/2024 Transcribe Orders eDH Incoming Referrals [phone] Etelvina Dan APRN Routine general medical examination at a health care facility from Last 3 Months Family History Medical History Relation Comments Coronary Artery Disease Father RI at th e age of 42 Coronary Artery Disease Paternal Grandfather Coronary Artery Disease Paternal Grandmother Relation Status Comments Father Paternal Grandfather Paternal Grandmother Social History Tobacco Use Types Packs/Day Years Used Date Smoking Tobacco: Never Smokeless Tobacco: Never Alcohol Use Standard Drinks/Week Comments Not Currently 0 (1 standard drink = 0.6 oz pur e alcohol) Rarely Sex and Gender Information Value Date Recorded Sex Assigned at Not on file Gender Identity Not on file Sexual Orientation Not on file Last Filed Vital Signs Vital Sign Reading Time Taken Comments Blood Pressure 102/64 11/01/2019 4:40 PM EST Pulse 58 11/01/2019 4:40 PM EST Temperature 36.9 ??C (98.4 ??F) 11/01/2019 4:40 PM ES T Respiratory Rate 17 11/01/2019 4:40 PM EST Oxygen Saturation 98% 11/01/2019 4:40 PM EST Inhaled Oxygen Concentration - - Weight 68.9 kg (152 lb) 04/06/2024 11:43 AM EDT Height 162.6 cm (5' 4) 04/06/2024 11:43 AM EDT Body Mass Index 26.09 04/06/2024 11:43 AM EDT Plan of Treatment Upcoming Encounters Date Type Department Care Team (Latest Contact Info) Description 07/20/2024 3:45 PM EDT Hospital En[place] [address] Wero Church MD [facility] [place] [address] 07/20/2024 3:45 PM EDT - 07/20/2024 4:45 PM EDT [place] [id number] Wero Church MD [facility] [place] [address] EGD, UPPER GI ENDOSCOPY (WRVU 2.09) Scheduled Procedures Name Priority Associated Diagnoses Date/Ti me EGD, UPPER GI ENDOSCOPY (WRVU 2.09) EGD/EUS +/- dilation of duodenal stricture. 60 minutes, in about 4 weeks 07/20/2024 3:45 PM EDT UPPER EUS- ENDOSCOPIC ULTRASOUND (WRVU 3.47) EGD/EUS +/- dilation of duodenal stricture. 60 minutes, in about 4 weeks 07/20/2024 3:45 PM EDT Health Maintenance Due Date Last Done Comments CT Colonography 1969 Colonoscopy 1969 Colorectal Cancer Screening 1970 FIT DNA 1970 FIT 1970 Sigmoidoscopy (10 year) with FIT yearly 1970 Sigmoidoscopy 1970 Pneumococcal Vaccine: At-Ris k 5-64yrs (1 of 2 - PCV) 1975 HIV screen 1987 Hepatitis C Screening 1987 Hepatitis B vaccine (0-59 yrs) (1) 1988 Tetanus/Diphtheria/Pertussis Vaccines (1 - Tdap) 1988 HPV test 1999 PAP Smear 1999 Breast Cancer Share Decision Needed 2009 Breast Cancer screening 2009 Zoster vaccine (1 of 2) 2019 Diabetes Screening (HgbA1C o r Glucose) 11/01/2022 11/01/2019, 11/01/2019, 10/31/2019 Covid-19 Vaccine ( - season) 2024 Influenza (Flu) vaccine (1 o f 1 - Influenza standard series) 05/30/2024 Procedures Procedure Name Priority Date/Time Associated Diagnosis Comments ORDS - PROVIDER CARE SCAN 05/24/2024 12:00 AM EDT HC HEMOGLOBIN A1C Routine 11/01/2019 4:5 4 AM EST from Last 3 Months or Most Recently Relevant to Health Maintenance Results * Scan Doc: Ords - Provider Care (05/24/2024 12:00 AM EDT) Narrative 05/24/2024 12:00 AM EDT Ordered by an unspecified provider. Scanning Provider MEDIA MGR SCAN EXT O RDR/RSLT * Hemoglobin A1c (11/01/2019 4:54 AM EST) Hemoglobin A1c 5.3 4.3 - 5.6 % [facility] Comment: Reference Range: 4.3 - 5.6% [...] Mellitus, Diabetes Care 2013; 36: Suppl. 1, T17-21 Estimated Average Glucose 105 mg/dL [facility] Comment: eAG equivalents for HbA1c percentages: [...] into estimated average glucose values. ??Diabetes Care 2008:31(8):9522-0924. Blood specimen (specimen) 11/01/2019 4:54 AM EST 11/01/2019 5:02 AM EST Narrative Resulting Agency Comment Spec In Lab Asa Wiseman MD CHEMISTRY ORDERABL ES [facility] [place] [address] from Last 3 Months or Most Recently Relevant to Health Maintenance Advance Directives * Full Code (Latest Code Status on File) Date Activated Date Inactivated Comments 10/31/2019 11:31 AM 11/01/2019 7:50 PM Question Answer Comments Does patient have capacity to make decision: Yes Care Teams Volunteer Manager Relationship Specialty Start Date End Date Maryanne Buckley PA [address] [place] [address] PCP - General Family Medicine 04/05/24
--- OUTSIDE RECORDS SUMMARY | 2024-07-06 12:04 | XMS_ITS | Encounter Summary ---
[place] [address] Care Team Providers Care Parts Sales Manager Name Role Phone Maryanne Buckley Primary Care Provider +1- [phone] Reason for Visit * Reason Onset Date Comments Referral 03/18/2024 Encounter Details Date Type Department Care Team (Late st Contact Info) Description 03/18/2024 [place] [phone] Unknown None Referral Social History Tobacco Use Types Packs/Day Years [...] encounter Miscellaneous Notes * Telephone Encounter - Jason Bunch - 03/18/2024 8:48 AM EDT Patient calling in: Caller: Patient If not PT/Relation to PT: n/a Best number to reach caller: [phone] Reason for the Call: Checking status of referral sent from an emergency room last night To check on the status of their referral: If not, what is the reason for their call: n/a Previous Neurology Information Questions: Has the patient seen another Neurologist: Yes If yes, when and where: teleneurology consult 03/17/24 Has the patient had any imaging done outside of : Yes If yes, when and where: MRI 03/17/24 [facility] documented in this encounter Plan of Treatment Upcoming Encounters Date Type Department Care Team (Latest Contact Info) Description 07/20/2024 3:45 PM EDT Hospital Encounter [place] [address] Wero Church MD [facility] [place] [address] 07/20/2024 3:45 PM EDT - 07/20/2024 4:45 PM EDT Surgery [place] [phone] Wero Church MD [facility] [place] [address] EGD, UPPER GI ENDOSCOPY (WRVU 2.09) Scheduled [...] on filedocumented in this encounter Care Teams Parts Sales Manager Relationship Specialty Start Date End Date Maryanne Buckley PA [address] [place] [address] PCP - General Family Medicine 04/05/24 documented as of this encounter
--- OUTSIDE RECORDS SUMMARY | 2024-07-06 12:04 | XMS_ITS | Encounter Summary ---
Author Organization [facility] Address [address] [place] [address] Care Team Providers Care Clinical Data Assistant Name Role Phone Marcio Keshia Torres PA-C Primary Care Provider + Encounter Details Date Type Department Care Team ([facility] st Contact Info) Description 02/21/2015 Results Only [facility] [phone] Harmeet Callaway MD [address] [facility] [address] [place] [address] Social History Tobacco Use Types Packs/Day Years Used Date Smoking Tobacco: Never Assessed Sex and Gender Information Value Date Recorded Sex Assigned at Not on file Gender Identity Not on file Sexual Orientation Not on file documented as of this encounter Plan of Treatment Not on file documented as of this encounter Procedures Procedure Name Priority Date/Time Associated Diagnosis Comments SURGICAL PATHOLOGY Routine 02/21/2015 20 :40 EDT documented in this encounter Results * SURGICAL PATHOLOGY (02/21/2015 20:40 EDT) Pathology Report: SURGICAL PATHOLOGY REPORT Reports generated via electronic interface contain original data; however they are lacking the format of the original report. Caution should be taken when reading/interpreting unformatted reports. Name: ? ADAM CARVER ? Accession #: ? [id number] ? : ? 1970 (Age: 44) ??F ? Collect Date: ? 02/21/2015 ? Location: ? [facility] ? Receive Date: ? 02/22/2015 ? Provider: ROMÁN CALLAWAY MD Copy to: KESHIA NELSON ? Final Pathologic Diagnosis: A. SMALL INTESTINE, DUODENUM, SECOND PORTION, BIOPSY: - ??Duodenal mucosa with no specific pathologic features. B. SMALL INTESTINE, DUODENAL BULB, STRICTURE, BIOPSY: - ??Marked peptic duodenitis with ulcer bed. - ??See comment. C. STOMACH, ANTRUM AND BODY, BIOPSY: - ??Gastric antral and body mucosa with reactive (chemical) gastropathy. D. ESOPHAGUS, LOWER, BIOPSY: - ??Squamocolumnar junctional mucosa with histologic features of reflux esophagitis. - ??Negative for intestinal metaplasia; Negative for dysplasia. ?? E. COLON, ASCENDING, BIOPSY: - ??Colonic mucosa with no specific pathologic features. F. COLON, SIGMOID, BIOPSY: - ??Colonic mucosa with no specific pathologic features. Comment: Supervisor Molding sections of this case were reviewed at the intradepartmental GI consultation conference. ANTIBODY(CLONE)(BLOCK) :RESULT AE1 AE3 clone (B1): Negative for infiltrating epithelium NOTE: ??One or more of the reagents used in immunohistochemical testing in this case may not have been cleared or approved by the U.S. Food and Drug Administration (FDA). ??The FDA has determined that such clearance or approval is not necessary. ??These tests are used for clinical purposes. ??They should not be regarded as investigational or for research. ??These reagents' performance characteristics have been determined by [facility]. ??The positive and negative controls worked appropriately. This laboratory is certified under the Clinical Laboratory Improvement Amendments of 1988 (CLIA-88) as qualified to perform high complexity clinical laboratory testing. ?? Document reviewed and electronically signed by: MAURICE CASTILLO MD Report ??Date: 02/28/2015 17:07 By the signature above, the attending physician certifies that he/she has personally conducted a gross and/or microscopic examination of the described specimens and rendered or confirmed the above diagnosis. Specimen(s) Received: A. ?2nd portion bx B. ? Duodenal bulb stricture C. ? Antrum and body bx D. ? Lower esophageal bx E. ? Ascending colon bx F. ? Sigmoid colon bx Clinical History: Altered bowels, hematochezia; clinical diagnosis code: ??787.99 Gross Description: A. ?Received in formalin labelled with proper patient identification (initials S, K) and 2nd portion bx are two pink-rod tissues (0.2 x 0.2 x 0.1 cm and 0.3 x 0.2 x 0.1 cm). Entirely submitted in A1. B. ?Received in formalin labelled with proper patient identification (initials S, K) and duodenal bulb stricture bx are three pink-rod tissues (0.1 x 0.1 x 0.1 cm to 0.5 x 0.1 x 0.1 cm). Entirely submitted in B1. C. ?Received in formalin labelled with proper patient identification (initials S, K) and antrum and body bx are two pink-rod tissues (0.2 x 0.2 x 0.2 cm and 0.4 x 0.3 x 0.2 cm). Entirely submitted in C1. D. ?Received in formalin labelled with proper patient identification (initials S, K) and lower esophagus bx are two pink-rod tissues (0.2 x 0.2 x 0.1 cm and 0.3 x 0.3 x 0.1 cm). Entirely submitted in D1. E. ?Received in formalin labelled with proper patient identification (initials S, K) and ascending colon bx is a single pink-rod tissue fragment (0.4 x 0.2 x 0.2 cm). Submitted intact in E1. F. ?Received in formalin labelled with proper patient identification (initials S, K) and sigmoid colon bx are two pink-rod tissues (0.2 x 0.2 x 0.1 cm and 0.3 x 0.2 x 0.1 cm). Entirely submitted in F1. Buffy Jules 02/23/2015 10:22 AM End of Report [facility] 02/21/2015 20:4 0 EDT 02/22/2015 20:40 EDT Harmeet Callaway MD PATHOLOGY ORDERABLES [facility] [address] [place] [address] documented in this encounter Visit Diagnoses Not on filedocumented in this encounter Care Teams Clinical Data Assistant Relationship Specialty Start Date End Date Keshia Buckley PA-C PCP - General 05/09/14 documented as of this encounter
--- OUTSIDE RECORDS SUMMARY | 2024-07-06 12:04 | XMS_ITS | Encounter Summary ---
Author Organization [facility] [place] [address] Care Team Providers Care Glass Grinder Name Role Phone Maryanne Buckley Primary Care Provider +1- [phone] Reason for Visit * Reason Onset Date Comments Appointment 04/06/2024 Encounter Details Date Type Department Care Team (Late st Contact Info) Description 04/06/2024 [place] [phone] Josefina Osborne, RN Appointment Social History Tobacco Use Types Packs/Day [...] encounter Miscellaneous Notes * Telephone Encounter - Josefina Osborne RN - 04/06/2024 10:37 AM EDT PC to Jaclyn attempted regarding scheduling f/u and MRI Cervical spine ordered by Dr. Lexi Ribera ordered 06/17/24 expected 04/16/24. LVM for pt to call NS at [phone] to schedule. documented in this encounter Plan of Treatment Upcoming Encounters Date Type Department Care Team (Latest Contact Info) Description 07/20/2024 3:45 PM EDT Hospital En[place] [address] Wero Church MD [facility] [place] [address] 07/20/2024 3:45 PM EDT - 07/20/2024 4:45 PM EDT [place] [address] Wero Church MD [facility] [place] [address] EGD, UPPER GI ENDOSCOPY (WRVU 2.09) Scheduled [...] on filedocumented in this encounter Care Teams Glass Grinder Relationship Specialty Start Date End Date Maryanne Buckley PA [address] [place] [address] PCP - General Family Medicine 04/05/24 documented as of this encounter
--- OUTSIDE RECORDS SUMMARY | 2024-07-06 12:04 | XMS_ITS | Encounter Summary ---
Author Organization Formerly [facility] Address [facility] [place] [address] Care Team Providers Care Machine Ii Cutter Name Role Phone Maryanne Buckley Primary Care Provider [phone] Reason for Visit * Auth/Cert Specialty Diagnoses / Procedures Referred By Contac t Referred To Contact Diagnoses NSTEMI (non-ST elevated myocardial infarction) postive troponin Procedures EMERGENCY IPI Referral ID Status Reason Start Date Expiration Date Visits Re quested Visits Authorized [id number] 1 1 Encounter Details Date Type Department Care Team (Late st Contact Info) Description 11/01/2019 7:30 AM EST - 11/01/2019 8:30 AM EST Surgery [place] [address] Darnell Macias MD [facility] [place] [address] CARDIAC CATHETERIZATION Social History Tobacco Use Types Packs/Day Years [...] Sign Reading Time Taken Comments Blood Pressure 112/64 11/01/2019 8:30 AM EST Pulse 55 11/01/2019 8:30 AM EST Temperature 36.6 ??C (97.9 ??F) 11/01/2019 3:28 AM ES T Respiratory Rate 16 11/01/2019 8:30 AM EST Oxygen Saturation 96% 11/01/2019 8:30 AM EST Inhaled Oxygen Concentration - - Weight 63.2 kg (139 lb 5.3 oz) 11/01/2019 6:05 A M EST Height 162.6 cm (5' 4) 10/31/2019 9:00 AM EST Body Mass Index 23.92 10/31/2019 9:00 AM EST documented in this encounter Discharge Summaries * Asa Wiseman MD - 11/01/2019 3:03 PM EST Discharge Summary Patient Name: Jaclyn Carver Patient Age: 49 y.o. Language: Slovak Race: White Ethnicity: Not nor Admit date: [...] hypothyroidism, migraines and anxiety/depression [facility] worsening heart burn, nausea [...] ?? Family history positive. Father of an VA at the age of 42. ?? WBC [...] levothyroxine, lisinopril, pantoprazole Hospital Course: Chest pain, VA ruled out, possibly representing non-cardiac chest pain vs unstable angina Troponin elevation represents myocardial injury not NSTEMI The patient was admitted to [facility] for telemetry monitoring. One set of biomarkers was positive at the outside hospital though serial biomarkers at our facility were negative. Thus, she was initiallymanaged as an NSTEMI with DAPT and a heparin infusion. Patient was taken to the label fuser tender due to her strong family history and [...] that the medications be sent to the [facility] and this was called in for her. [...] appointments: During 8am-5pm Friday through Friday call [phone] to speak with a nurse in the cardiology clinic All other times call [phone] and ask to speak to the cover mat machine operator administration clerk. Return to work: One week Driving: No driving for 48 hours after catheterization. Follow up Appointments: PCP OMAR Rea [phone] to see you on Nov 08 at [...] appointments: During 8am-5pm Friday through Friday call [phone] to speak with a nurse in the cardiology clinic All other times call [phone] and ask to speak to the cover mat machine operator administration clerk. Return to work: One week Driving: No driving for 48 hours after catheterization. 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 NSTEMI (non-ST elevated myocardial infarction) Resolved Hospital Problems No resolved problems to display. Interval History: Patient has returned from the label fuser tender and was found to have nonobstructive coronary [...] recent chest pain who went to the label fuser tender today and was found to have nonobstructive coronary artery disease. Stable for discharge home this afternoon. Plan: Nonobstructive coronary artery disease Patient does not smoke Home today No changes to home medications Given letter to return to work on 11/08/2019 Please see D/C summary for details Full Code Patient discussed with Dr. Wiseman. OMAR Louise 11/01/2019 Pager [phone] OMAR ONEILL 11/01/2019 Cardiology Attending Note I [...] MD, FACP, FACC Section of Cardiovascular Medicine [facility] Meter And Service Line Inspectorsupervisor packing room [facility] This patient meets or has met medical criteria to require an inpatient level of care, i.e. a minimum of two midnights in the hospital with multiple complex problems. * Karely Hagen PA - 11/01/2019 11:18 AM EST Images from the original note were not included. [place] [place] [address] [address] OMAR House November 01, 2019 Jaclyn Carver [address] [facility] [address] Ms. Ball may return to work on [...] hypothyroidism, migraines and anxiety/depression who presented to [facility] on 10/30/19 of worsening heart burn, [...] free. Family history positive. Father of an VA at the age of 42. WBC 8.7 [...] of Onset ??? Coronary Artery Disease Father VA at the age of 42 ??? Coronary [...] file Gets together: Not on file Attends restorationism service: Not on file Active member of [...] on file Social History Narrative Works at [employer] (Boyfriend Joao Stringer) 1 child REVIEW OF [...] hypothyroidism, migraines and anxiety/depression who presented to [facility] on 10/30/19 of worsening heart burn, nausea and malaise. Noted premature family history of disease with father having a fatal VA at the age of 42. 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 Living Situation:Lives in a 1 story home with her boyfriend Joao Stringer and his brother Karely Stringer. Physical address is [address] [place] [address] [place] [id number] Supports: her boyfriend Joao Stringer. Assessment: Patient with no apparent RNCM/SW needs at this time. No housing, transportation, insurance, resources concerns identified at this time. Supports in place to achieve a safe post-hospital transition. No identified barriers to accessing necessary care and/or follow-up after discharge. Plan: Patient to d/c to home via boyfriend when medically ready. program support clerk/Water Pump Operator will continue to follow patient???s progress and remain available if situation changes for coordination of care, psychosocial support and/or discharge planning. Joao Bah RN Pager [phone] * Brief Op Note - Darnell Macias MD - 11/01/2019 8:45 AM EST Preliminary Cardiac Catheterization Procedure Note: Patient Name: Jaclyn Carver : [id number] MR#: [id number] Case Date: 11/01/2019 Green Chain Offbearer: Surgeon(s) and Role: * Darnell Macias MD [...] Outcome: Ongoing (Interventions Implemented as Appropriate) 10/31/19 1749 10/31/192024 Plan of Care Review Progress no change [...] bradycardic. Heparin gtt continued. PLAN MOVING FORWARD: metallurgy laboratory technician INDIVIDUALIZED FALL PREVENTION INTERVENTIONS: Patient-specific fall risk [...] (Interventions Implemented as Appropriate) 10/31/19 1215 10/31/19 1130 Plan of Care Review Progress -- no [...] 3:45 PM EDT Hospital [place] [phone] Wero Church MD [facility] [place] [address] 07/20/2024 3:45 PM EDT - 07/20/2024 4:45 PM EDT [place] [phone] Wero Church MD [facility] [place] [address] EGD, UPPER GI ENDOSCOPY (WRVU 2.09) Scheduled [...] 4:54 AM EST DIFFERENTIAL, AUTOMATED Routine 11/01/19 4:54 AM EST HC CBC,PLT & AUTO [...] 9:53 AM EST Procedure: ?Transthoracic Echocardiogram Patient: ?GENOVEVA Win ? (Age): 1970(49y) Med Rec#: ? [id number] ?Sex: ?F ? Site Loc: ? [facility] ?Ht / Wt: ??162(cm)/63(kg) Pt. Loc: ?Adult Floor ? BSA: ?1.67 Study Date: ?? 11/01/2019 ?Pt. Type: Inpatient Tape: ? Referring: Asa Wiseman ([id number]) Referring: MIKE Reading: Joaquin Davison ([id number]) Pinsetter Mechanic Automatic: Kassidy Willard Diagnosis: *Non-ST elevation (NSTEMI) myocardial [...] LV FS (2D) ?54.07 ?% ? EF Tina (2D) ?? 85.31 ?% ? Ao root [...] Vmax ?0.66 ? m/sec ? MV deceleration dwtt921.6 ?msec ? MV A-wave Vmax ?0.54 ? [...] ? Mid-Inferior ?Normal ? Mid-Inferoseptal ?Normal ? [place]-Septal ? Normal ? [place]-Anterior ? Normal ? [place]-Lateral ?Normal ? [place]-Inferior ? Normal ? [place]-Tip ?Normal ? This report has been electronically signed by: Joaquin Davison MD ? 11/01/2019 09:52:50 Images reviewed and interpretation verified [facility] Cardiac Ultrasound Laboratory Procedure Note Joaquin Davison MD - 11/01/2019 Procedure: Transthoracic Echocardiogram Patient: GENOVEVA Win (Age): 1970(49y) Med Rec#: [id number] Sex: F Site Loc: [facility] Ht / Wt: 162(cm)/63(kg) Pt. Loc: Adult Floor BSA: 1.67 Study Date: 11/01/2019 Pt. Type: Inpatient Tape: Referring: Asa Wiseman ([id number]) Referring: MIKE Reading: Joaquin Davison ([id number]) Pinsetter Mechanic Automatic: Kassidy Willard Diagnosis: *Non-ST elevation (NSTEMI) myocardial [...] MV E-wave Vmax 0.66 m/sec MV deceleration vrcz855.6 msec MV A-wave Vmax 0.54 m/sec MV [...] Normal Mid-Posterolateral Normal Mid-Inferior Normal Mid-Inferoseptal Normal [place]-Septal Normal [place]-Anterior Normal [place]-Lateral Normal [place]-Inferior Normal [place]-Tip Normal This report has been electronically signed by: Joaquin Davison MD 11/01/2019 09:52:50 Images reviewed and interpretation verified [facility] Cardiac Ultrasound Laboratory Asa Wiseman MD ECHO ORDERABLES * CARDIAC CATHETERIZATION (11/01/2019 8:45 AM EST) Anatomical Region Laterality Modality Other Narrative 11/01/2019 8:59 AM EST ?[facility] ? Cardiac Catheterization/Intervention Report ? Patient Name: Jaclyn Carver. ? Procedure Date: 11/01/2019 ? A #: [id number] ? Primary Physician: Darnell Mcaias ? Case #: [id number] ? File Name: [id number] ? Catheterization Order Number: [id number] ? [facility] ? Final Report [place], [place] ? Patient Name: ? Jaclyn Carver ? ID#: ?[id number] ? : ?1970 ? Procedure Date: ? November 01, 2019 ? Case #: ? [id number] ? Room: ? 1 ? Case Physician: ? Darnell Macias M.D. ? Start: ?08:20 ?Fellow: ? Rik Lai M.D. ?Admission: ??10/31/2019 ? Referring Physician: ??Jeniane Rathburn, M.D. ? Procedures: ?* Coronary Angiography ?* [...] procedure was Urgent. The indication for ?the label fuser tender visit is ACS less than or equal [...] Procedure Note Darnell Macias MD - 11/01/2019 [facility] Cardiac Catheterization/Intervention Report Patient Name: Jaclyn Carver Procedure Date: 11/01/2019 A #: [id number] Primary Physician: Darnell Macias Case #: [id number] File Name: [id number] Catheterization Order Number: [id number] [facility] FinalReport [place], [place] Patient Name: Jaclyn Carver ID#:[id number] :1970 Procedure Date: November 01, 2019 Case [...] patientwas designated as ASA Class III. The [facility] clinical frailty scale is 2:Well. Diagnostic Tests: Electrocardiography: EKG was assessed by ECG. EKG was Abnormal. EKG showed other abnormality. Medications Prior to Procedure: ASA and Statin. Indications for Diagnostic Cath: The priority of the diagnostic procedure was Urgent. The indicationfor the label fuser tender visit is ACS less than or equal [...] units of heparin were administered. A total [id number] of Omnipaque were opened, 50cc of Omnipaque were administered rqd21vj of Omnipaque were wasted. Radiation: Fluoro time [...] the coronary angiography and leftheart catheterization. Darnell Macias M.D. Electronically Signed by: Darnell Macias M.D. [...] (Bezet) 441 ms MUSE SYSTEM Calculated P [place] 66 degrees MUSE SYSTEM Calculated R [place] 76 degrees MUSE SYSTEM Calculated T [place] 78 degrees MUSE SYSTEM INTERPRETATION Sinus bradycardia [...] Heparin (unfractionated) Level (11/01/2019 4:54 AM EST) UF Heparin 0.34 IU/mL [facility] Comment: Guidelines for therapeutic unfractionated heparin [...] MD HEMATOLOGY ORDERAB LES Performing Organization Address City/[facility]/ZIP Co de Phone Number [facility] [place] [address] * Differential, Automated (11/01/2019 4:54 AM EST) Neutrophil % 62.9 % [facility] Neutrophil Absolute 3.88 1.70 - 6.10 x10(3)/[facility] Lymph % 24.6 % [facility] Lymphocytes Abs 1.5 0.9 - 3.2 x10(3)/[facility] Monocyte % 8.3 % [facility] Monocyte Abs 0.5 0.3 - 0.9 x10(3)/[facility] Eos % 2.9 % [facility] Eosinophils Abs 0.2 0.0 - 0.4 x10(3)/[facility] Basophil % 1.1 % [facility] Baso Absolute 0.1 0.0 - 0.1 x10(3)/[facility] Immature Gran % 0.20 % [facility] Comment: Immature granulocytes(IG's)percentage and absolute count will include metamyelocytes, myelocytes, and promyelocytes. Blood smears from CBCs yielding IG's will be scanned manually for concordance. If this scan disagrees with the automated IG or if promyelocytes are noted, a manual differential will be performed. Immature Gran Absolute 0.01 0.00 - 0.04 x10(3)/[facility] Blood specimen (specimen) 11/01/2019 4:54 AM EST 11/01/2019 5:02 AM EST Narrative Resulting Agency Comment Spec In Lab Kerri NELSON HEMATOLOGY ORDERABLE S [facility] [place] [address] * (ABNORMAL) Hemogram (11/01/2019 4:54 AM EST) Pathologist [facility] White Blood Cell 6.2 4.0 - 9.5 x10(3)/mc L [facility] Red Blood Cell 3.89(L) 4.00 - 5.21 x10(6)/mc L [facility] Hemoglobin 11.2(L) 11.7 - 15.5 gm/dL [facility] Hematocrit 34.2(L) 35.7 - 45.8 % [facility] Mean Cell Volume 87.9 82.6 - 94.4 fL [facility] Mean Cell Hemoglobin 28.8 27.1 - 32.0 pg [facility] Mean Cell Hemoglobin Concentration 32.7 31.7 - 35.0 gm/dL [facility] Platelet 249 145 - 357 x10(3)/mc L [facility] RDW Standard Deviation 44.1 37.0 - 46.0 fL [facility] RDW coefficient of variation 13.6 11.5 - 14.1 % [facility] Mean Platelet Volume 10.5 7.6 - 12.9 fL [facility] NRBC% auto 0.0 % [facility] NRBC Absolute 0.000 0.000 - 0.000 x10(3)/mc L [facility] Blood specimen (specimen) 11/01/2019 4:54 AM EST 11/01/2019 5:02 AM EST Narrative Resulting Agency Comment Spec In Lab Kerri NELSON HEMATOLOGY ORDERABLE S [facility] [place] [address] * Magnesium (11/01/2019 4:54 AM EST) Pathologist [facility] Magnesium 0.83 0.69 - 1.07 mmol/L [facility] Blood specimen (specimen) 11/01/2019 4:54 AM EST 11/01/2019 5:02 AM EST Narrative Resulting Agency Comment Spec In Lab Asa Wiseman MD CHEMISTRY ORDERABL ES [facility] [place] [address] * (ABNORMAL) BMP w/fasting Glucose (11/01/2019 4:54 AM EST) Glucose Fasting 94 65 - 99 mg/dL [facility] Comment: ?Fasting* Glucose Interpretive Criteria Normal [...] of Diabetes Mellitus, Position Statement from the [place] Diabetes Association. ??Diabetes Care, Volume 33, Supplement 1, Sep 2009 Blood Urea Nitrogen 12 8 - 18 mg/dL [facility] Creatinine 0.50(L) 0.70 - 1.20 mg/dL [facility] Sodium 137 135 - 145 mmol/L [facility] Potassium 3.6 3.5 - 5.0 mmol/L [facility] Comment: Please note: ??Patients with WBC >100,000 may have falsely elevated Potassium levels. ??For accurate Potassium quantification in these patients send serum separator tube (gold top) for subsequent determinations. ??Contact the Clinical Chemistry Laboratory if there are any questions. Chloride 105 98 - 107 mmol/L [facility] Carbon Dioxide 21(L) 22 - 31 mmol/L [facility] Anion Gap 11 5 - 15 mmol/L [facility] Calcium 9.7 8.5 - 10.5 mg/dL [facility] Est Glomerular Filtration Rate 113 >=60 mL/min/1. 73 m?? [facility] Comment: The eGFR was calculated using the CKD-EPI equation. As with all creatinine based estimates of kidney function, eGFR values calculated with the CKD-EPI equation are not accurate in patients with acute kidney failure, extremes of body mass or the acutely ill. http://Ivaldi/[facility] CITYnkf eGFR 131 >=60 mL/min/1. 73 m?? [facility] Comment: The eGFR was calculated using the CKD-EPI equation. As with all creatinine based estimates of kidney function, eGFR values calculated with the CKD-EPI equation are not accurate in patients with acute kidney failure, extremes of body mass or the acutely ill. http://Ivaldi/[facility] CITYnkf Blood specimen (specimen) 11/01/2019 4:54 AM EST 11/01/2019 5:02 AM EST Narrative Resulting Agency Comment Spec In Lab Asa Wiseman MD CHEMISTRY ORDERABL ES [facility] [place] [address] * Hepatic Function Panel (11/01/2019 4:54 AM EST) Protein, Total 6.2 6.1 - 8.0 gm/dL [facility] Albumin 3.7 3.2 - 5.2 gm/dL [facility] Aspartate Aminotransferase 10 0 - 30 unit/L [facility] Alanine Aminotransferase 7 0 - 30 unit/L [facility] Alkaline Phosphatase 53 35 - 105 unit/L [facility] Bilirubin, Total 0.2 0.2 - 1.3 mg/dL [facility] Bilirubin, Direct <0.1 0.0 - 0.3 mg/dL [facility] Blood specimen (specimen) 11/01/2019 4:54 AM EST 11/01/2019 5:02 AM EST Narrative Resulting Agency Comment Spec In Lab Asa Wiseman MD CHEMISTRY ORDERABL ES Performing Organization Address [facility] Co de Phone Number [facility] [place] [address] * Triglyceride (11/01/2019 4:54 AM EST) Triglyceride 122 mg/dL [facility] Comment: Average Risk/Lower Risk: <150 mg/dL Borderline High Risk: 150-199 mg/dL High Risk: 200-499 mg/dL Very High Risk: >zj=406 mg/dL Blood specimen (specimen) 11/01/2019 4:54 AM EST 11/01/2019 5:02 AM EST Narrative Resulting Agency Comment Spec In Lab Asa Wiseman MD CHEMISTRY ORDERABL ES Performing Organization Address [facility] Co de Phone Number [facility] [place] [address] * HDL/Cholesterol Profile (11/01/2019 4:54 AM EST) Cholesterol, Total 167 mg/dL [facility] Comment: Lower Risk: <200 mg/dL Average Risk: 200-239 mg/dL Higher Risk: >ga=186 mg/dL HDL Cholesterol 34 mg/dL [facility] Comment: Males: ?? Higher Risk: <40 mg/dL Females: ?? HIgher Risk: <50 mg/dL Cholesterol/HDL Ratio 4.9 ratio [facility] Chol/HDL Interpretation See Note [facility] Comment: Lipid management should be guided by a patient? s ASCVD risk, goals and preferences. ACC/AHA Guidelines recommend high intensity statin if clinical ASCVD or LDL greater than or equal to 190 mg/dL. http://Altierreurl.com/KRR-VDB-Hpczixwxn Measure LDL if Total Cholesterol minus HDL Cholesterol is greater than 220 mg/dL. Adults aged 40-75 with LDL 70-189 mg/dL should have their 10 year ASCVD risk estimated with the ACC/AHA ASCVD risk subsorter http://tools.acc.org/QGMVV-Oqva-Jiampglts/ Statin should be discussed if risk greater [...] MD CHEMISTRY ORDERABL ES Performing Organization Address [facility] de Phone Number [facility] [place] [address] * LDL Cholesterol, Direct (11/01/2019 4:54 AM EST) LDL Cholesterol, Direct 111 mg/dL [facility] Comment: Lowest Risk: <100 mg/dL Lower Risk: 100-129 mg/dL Borderline High Risk: 130-159 mg/dL High Risk: 160-189 mg/dL Very High Risk: >bh=032 mg/dL Blood specimen (specimen) 11/01/2019 4:54 AM EST 11/01/2019 5:02 AM EST Narrative Resulting Agency Comment Spec In Lab Asa Wiseman MD CHEMISTRY ORDERABL ES Performing Organization Address [facility] Co de Phone Number [facility] [place] [address] * Hemoglobin A1c (11/01/2019 4:54 AM EST) Hemoglobin A1c 5.3 4.3 - 5.6 % [facility] Comment: Reference Range: 4.3 - [...] Mellitus, Diabetes Care 2013; 36: Suppl. 1, C40-57 Estimated Average Glucose 105 mg/dL [facility] Comment: eAG equivalents for HbA1c [...] into estimated average glucose values. ??Diabetes Care 2008:31(8):6913-2073. Blood specimen (specimen) 11/01/2019 4:54 AM EST 11/01/2019 5:02 AM EST Narrative Resulting Agency Comment Spec In Lab Asa Wisemna MD CHEMISTRY ORDERABL ES [facility] [place] [address] * Heparin (unfractionated) Level (10/31/2019 11:01 PM EST) UF Heparin 0.38 IU/mL [facility] Comment: Guidelines for therapeutic unfractionated heparin [...] MD HEMATOLOGY ORDERAB LES Performing Organization Address [facility] de Phone Number [facility] [place] [address] * CK (10/31/2019 11:01 PM EST) [facility] Creatine Kinase 65 0 - 160 unit/L [facility] Blood specimen (specimen) 10/31/2019 11:01 PM EST 10/31/2019 11:05 PM EST Narrative Resulting Agency Comment Spec In Lab Asa Wiseman MD CHEMISTRY ORDERABL ES Performing Organization Address [facility] de Phone Number [facility] [place] [address] * Troponin (10/31/2019 11:01 PM EST) [facility] Troponin-T <0.01 0.00 - 0.00 ng/mL [facility] Comment: The 99th percentile for Troponin T is less than 0.01 ng/mL, any detectable cTnT concentration using this assay should be considered elevated. According to the third universal definition of myocardial infarction the following criteria with a clinical presentation consistent with acute myocardial ischemia meets the diagnosis for a myocardial infarction (VA). Detection of a rise and/or fall of cTnT, with at least one value greater than the 99th percentile (> or = 0.01) and with at least one of the following ?? Symptoms of ischemia ?? New or presumed new significant MG-mvtmerx-J wave (ST-T) changes or new left bundle [...] additional sample may be indicated. Reference: Third [place] Definition of Myocardial Infarction. Journal of the [place] College [employer] 2012;60:1581-98 Blood specimen (specimen) 10/31/2019 11:01 PM EST 10/31/2019 11:05 PM EST Narrative Resulting Agency Comment Spec In Lab Asa Wiseman MD CHEMISTRY ORDERABL ES [facility] [place] [address] * Heparin (unfractionated) Level (10/31/2019 5:19 PM EST) UF Heparin 0.34 IU/mL [facility] Comment: Guidelines for therapeutic unfractionated heparin [...] MD HEMATOLOGY ORDERAB LES Performing Organization Address [facility] [facility] Co de Phone Number [facility] [place] [address] * CK (10/31/2019 5:19 PM EST) Creatine Kinase 72 0 - 160 unit/L [facility] Blood specimen (specimen) 10/31/2019 5:19 PM EST 10/31/2019 5:56 PM EST Narrative Resulting Agency Comment Spec In Lab Asa Wiseman MD CHEMISTRY ORDERABL ES Performing Organization Address [facility] Phone Number [facility] [place] [address] * Troponin (10/31/2019 5:19 PM EST) Pathologist [facility] Troponin-T <0.01 0.00 - 0.00 ng/mL [facility] Comment: The 99th percentile for Troponin T is less than 0.01 ng/mL, any detectable cTnT concentration using this assay should be considered elevated. According to the third universal definition of myocardial infarction the following criteria with a clinical presentation consistent with acute myocardial ischemia meets the diagnosis for a myocardial infarction (VA). Detection of a rise and/or fall of cTnT, with at least one value greater than the 99th percentile (> or = 0.01) and with at least one of the following ?? Symptoms of ischemia ?? New or presumed new significant US-pehyirq-W wave (ST-T) changes or new left bundle [...] additional sample may be indicated. Reference: Third [place] Definition of Myocardial Infarction. Journal of the [place] [employer] 2012;60:1581-98 Blood specimen (specimen) 10/31/2019 5:19 PM EST 10/31/2019 5:56 PM EST Narrative Resulting Agency Comment Spec In Lab Asa Wiseman MD CHEMISTRY ORDERABL ES Performing Organization Address [facility] Co de Phone Number [facility] [place] [address] * EKG 12 Lead (10/31/2019 11:30 AM EST) Ventricular rate 71 BPM MUSE SYSTEM Atrial Rate 71 BPM MUSE SYSTEM P-R Interval 144 ms MUSE SYSTEM QRS Duration 104 ms MUSE SYSTEM Q-T Interval 412 ms MUSE SYSTEM QTC Calculated (Bezet) 447 ms MUSE SYSTEM Calculated P [place] 65 degrees MUSE SYSTEM Calculated R [place] 67 degrees MUSE SYSTEM Calculated T [place] 64 degrees MUSE SYSTEM INTERPRETATION Normal sinus rhythm Intraventricul ar conduction delay Nonspecific T wave abnormality Abnormal ECG No previous ECGs available Confirmed by MD Caroline, Abhishek Gallego ([id number]) on 10/31/2019 11:52:13 AM MUSE SYSTEM 10/31/2019 11:3 0 AM EST 10/31/2019 11:52 AM EST Mk Tate MD ECG ORDERABLES Performing Organization Address City/[facility]/ZIP Co de Phone Number MUSE SYSTEM * TSH (10/31/2019 10:51 AM EST) Thyroid Stimulating Hormone 1.82 0.27 - 4.20 mcIU/mL [facility] Blood specimen (specimen) Venous Draw / Unknown 10/31/2019 10:51 AM EST 10/31/2019 11:06 AM EST Narrative Resulting Agency Comment Spec In Lab Kerri NELSON CHEMISTRY ORDERABLES Performing Organization Address City/[facility] Co de Phone Number [facility] [place] [address] * Heparin (unfractionated) Level (10/31/2019 10:51 AM EST) [facility] UF Heparin 0.37 IU/mL [facility] Comment: Guidelines for therapeutic unfractionated heparin [...] MD HEMATOLOGY ORDERAB LES Performing Organization Address [facility] Co de Phone Number [facility] [place] [address] * (ABNORMAL) Differential, Automated (10/31/2019 10:51 AM EST) [facility] Neutrophil % 78.9 % [facility] Neutrophil Absolute 6.17(H) 1.70 - 6.10 x10(3)/[facility] LAB[facility] Lymph % 12.6 % [facility] Lymphocytes Abs 1.0 0.9 - 3.2 x10(3)/[facility] LABORATORY Monocyte % 7.0 % [facility] Monocyte Abs 0.6 0.3 - 0.9 x10(3)/[facility] LABORATORY Eos % 0.6 % [facility] Eosinophils Abs 0.0 0.0 - 0.4 x10(3)/[facility] LABORATORY Basophil % 0.6 % [facility] Baso Absolute 0.0 0.0 - 0.1 x10(3)/[facility] LABORATORY Immature Gran % 0.30 % [facility] Comment: Immature granulocytes(IG's)percentage and absolute count will include metamyelocytes, myelocytes, and promyelocytes. Blood smears from CBCs yielding IG's will be scanned manually for concordance. If this scan disagrees with the automated IG or if promyelocytes are noted, a manual differential will be performed. Immature Gran Absolute 0.02 0.00 - 0.04 x10(3)/[facility] Blood specimen (specimen) 10/31/2019 10:51 AM EST 10/31/2019 10:59 AM EST Narrative Resulting Agency Comment Spec In Lab Kerri NELSON HEMATOLOGY ORDERABLE S [facility] [place] [address] * (ABNORMAL) Hemogram (10/31/2019 10:51 AM EST) White Blood Cell 7.8 4.0 - 9.5 x10(3)/[facility] LAB[facility]ATORY Red Blood Cell 3.82(L) 4.00 - 5.21 x10(6)/[facility] Hemoglobin 11.1(L) 11.7 - 15.5 gm/dL [facility] Hematocrit 33.8(L) 35.7 - 45.8 % [facility] Mean Cell Volume 88.5 82.6 - 94.4 fL [facility] Mean Cell Hemoglobin 29.1 27.1 - 32.0 pg [facility] Mean Cell Hemoglobin Concentration 32.8 31.7 - 35.0 gm/dL [facility] Platelet 288 145 - 357 x10(3)/mc L [facility] RDW Standard Deviation 44.6 37.0 - 46.0 fL [facility] RDW coefficient of variation 13.8 11.5 - 14.1 % [facility] Mean Platelet Volume 10.4 7.6 - 12.9 fL [facility] NRBC% auto 0.0 % [facility] NRBC Absolute 0.000 0.000 - 0.000 x10(3)/mc L [facility] Blood specimen (specimen) 10/31/2019 10:51 AM EST 10/31/2019 10:59 AM EST Narrative Resulting Agency Comment Spec In Lab Kerri NELSON HEMATOLOGY ORDERABLE S Performing Organization Address City/[facility] Co de Phone Number [facility] [place] [address] * CK (10/31/2019 10:51 AM EST) Creatine Kinase 69 0 - 160 unit/L [facility] Blood specimen (specimen) 10/31/2019 10:51 AM EST 10/31/2019 10:59 AM EST Narrative Resulting Agency Comment Spec In Lab Asa Wiseman MD CHEMISTRY ORDERABL ES Performing Organization Address City/[facility]/ZIP Co de Phone Number [facility] [place] [address] * Troponin (10/31/2019 10:51 AM EST) Troponin-T <0.01 0.00 - 0.00 ng/mL [facility] Comment: The 99th percentile for Troponin T is less than 0.01 ng/mL, any detectable cTnT concentration using this assay should be considered elevated. According to the third universal definition of myocardial infarction the following criteria with a clinical presentation consistent with acute myocardial ischemia meets the diagnosis for a myocardial infarction (VA). Detection of a rise and/or fall of cTnT, with at least one value greater than the 99th percentile (> or = 0.01) and with at least one of the following ?? Symptoms of ischemia ?? New or presumed new significant YA-uikhlko-E wave (ST-T) changes or new left bundle [...] additional sample may be indicated. Reference: Third [place] Definition of Myocardial Infarction. Journal of the [place] [employer] 2012;60:1581-98 Blood specimen (specimen) 10/31/2019 10:51 AM EST 10/31/2019 10:59 AM EST Narrative Resulting Agency Comment Spec In Lab Asa Wiseman MD CHEMISTRY ORDERABL ES [facility] [place] [address] * (ABNORMAL) APTT (10/31/2019 10:51 AM EST) [facility] Partial Thromboplastin Time 72(H) 25 - 37 sec [facility] Comment: The PTT is NOT appropriate for heparin monitoring. Use the Anti-Xa level for heparin monitoring (HEP UFH) or LMWH monitoring (HEP LMW). A PTT less than 37 seconds generally indicates adequate hemostasis. Blood specimen (specimen) 10/31/2019 10:51 AM EST 10/31/2019 10:59 AM EST Narrative Resulting Agency Comment Spec In Lab Mk Tate MD HEMATOLOGY ORDERABLE S Performing Organization Address [facility] Co de Phone Number [facility] [place] [address] * Prothrombin Time (10/31/2019 10:51 AM EST) Prothrombin Time 11.9 9.4 - 12.5 sec [facility] International Normalization Ratio 1.0 [facility] Comment: An INR <2.0 indicates adequate [...] MD HEMATOLOGY ORDERABLE S Performing Organization Address [facility] Co de Phone Number [facility] [place] [address] * pro-Brain Natriuretic Peptide (10/31/2019 10:51 AM EST) NT-proBNP 55 <=125 pg/mL [facility] Blood specimen (specimen) 10/31/2019 10:51 AM EST 10/31/2019 10:59 AM EST Narrative Resulting Agency Comment Spec In Lab Mk Tate MD CHEMISTRY ORDERABLES Performing Organization Address [facility] Co de Phone Number [facility] [place] [address] * (ABNORMAL) Basic Metabolic Panel (non-fasting) (10/31/2019 10:51 AM EST) Glucose 79 65 - 199 mg/dL [facility] Comment:Diabetes: >=200 mg/d L plus symptoms Blood Urea Nitrogen 10 8 - 18 mg/dL [facility] Creatinine 0.58(L) 0.70 - 1.20 mg/dL [facility] Sodium 139 135 - 145 mmol/L [facility] Potassium 3.8 3.5 - 5.0 mmol/L [facility] Comment: Please note: ??Patients with WBC >100,000 may have falsely elevated Potassium levels. ??For accurate Potassium quantification in these patients send serum separator tube (gold top) for subsequent determinations. ??Contact the Clinical Chemistry Laboratory if there are any questions. Chloride 106 98 - 107 mmol/L [facility] Carbon Dioxide 15(L) 22 - 31 mmol/L [facility] Anion Gap 18(H) 5 - 15 mmol/L [facility] Calcium 9.3 8.5 - 10.5 mg/dL [facility] Est Glomerular Filtration Rate 107 >=60 mL/min/1. 73 m?? [facility] Comment: The eGFR was calculated using the CKD-EPI equation. As with all creatinine based estimates of kidney function, eGFR values calculated with the CKD-EPI equation are not accurate in patients with acute kidney failure, extremes of body mass or the acutely ill. [email or web address]-[email or web address] eGFR 125 >=60 mL/min/1. 73 m?? [facility] Comment: The eGFR was calculated using the CKD-EPI equation. As with all creatinine based estimates of kidney function, eGFR values calculated with the CKD-EPI equation are not accurate in patients with acute kidney failure, extremes of body mass or the acutely ill. [email or web address] Blood specimen (specimen) 10/31/2019 10:51 AM EST 10/31/2019 10:59 AM EST Narrative Resulting Agency Comment Spec In Lab Mk Tate MD CHEMISTRY ORDERABLES [facility] [place] [address] documented in this encounter Visit Diagnoses Not on filedocumented in this encounter Admitting Diagnoses Diagnosis NSTEMI [...] 10/31/2019 3:48 PM EST 650 mg aspirin chewable tablet ONCE PRN, Starting on Fri11/01/19 at 0812, Until Fri11/01/19 at 0919, Cath (Intra-Procedure), Routine Given 11/01/2019 8:12 AM EST 81 mg aspirin EC tablet 81 mg 81 [...] Given 10/31/2019 5:31 PM EST 75 mg clopidogreL (Plavix) tablet ONCE PRN, Starting on Fri11/01/19 at 0812, Until Fri11/01/19 at 0919, Cath (Intra-Procedure), Routine Given 11/01/2019 8:12 AM EST 75 mg escitalopram (Lexapro) tablet 30 mg 30 mg, Oral, DAILY, First dose on Fri11/01/19 at 0900, Until Discontinued, Routine Given 11/01/2019 9:44 AM EST 30 mg fentaNYL 50 mcg/mL multi-dose injection ONCE PRN, Starting on Fri11/01/19 at 0815, Until Fri11/01/19 at 0845, Intra-Operative (Intra-Procedure), Routine Given 11/01/2019 8:15 AM EST 25 mcg heparin (porcine) 1,000 unit/mL injection ONCE PRN, Starting on Fri11/01/19 at 0829, Until Fri11/01/19 at 0845, Cath (Intra-Procedure), Routine Given 11/01/2019 8:29 AM EST 4,000 Units heparin (porcine) injection 0-4,000 Units 0-4,000 Units, [...] 12:18 PM EST 750 Units/hr 15 mL/hr iohexoL (OMNIPAQUE) 350 mg/mL solution ONCE PRN, Starting on Fri11/01/19 at 0843, Until Fri11/01/19 at 0845, Cath (Intra-Procedure), Routine Given 11/01/2019 8:43 AM EST 50 mLs levothyroxine (Synthroid) tablet 75 mcg 75 mcg, [...] Given 10/31/2019 5:31 PM EST 12.5 mg midazolam (PF) (VERSED) multi-dose injection ONCE PRN, Starting on Fri11/01/19 at 0814, Until Fri11/01/19 at 0845, Cath (Intra-Procedure), Routine Given 11/01/2019 8:14 AM EST 1 mg nitroGLYcerin (Nitrostat) disintegrating tablet 0.4 mg [...] Unit), Routine nitroGLYcerin 100 mcg/mL intracoronary dilution ONCE PRN, Starting on Fri11/01/19 at 0825, Until Fri11/01/19 at 0845, Cath (Intra-Procedure), Routine Given 11/01/2019 8:25 AM EST 175 mcg pantoprazole EC (Protonix) tablet 40 mg 40 [...] sub-optimal echo images, Echo Lab (Intra-Procedure), Routine verapamiL (ISOPTIN) injection ONCE PRN, Starting on Fri11/01/19 at 0825, Until Fri11/01/19 at 0845, Administer over 2 Minutes, Cath (Intra-Procedure) Given 11/01/2019 8:25 AM EST 2.5 mg documented in this encounter Active and Recently [...] Burgos RN - Comment: given in cath)0919 (NOV Unhold - Provider: Admin Adt) atorvastatin (Lipitor) tablet 40 mg 40 mg, Oral, EVERY EVENING, First dose on 10/31/19 at 1700, Until Discontinued, Routine 1731 (Given - Provider: Caryn Cash RN) 0755 (NOV Hold - Provider: Admin Adt - Reason: Transfer to a Procedural area)0919 ([facility] Unhold - Provider: Admin Adt)1700 (Due - Provider: Admin Adt) clopidogreL (Plavix) tablet 75 mg 75 mg, Oral, EVERY EVENING, First dose on Fri10/31/19 at 1700, Until Discontinued, Routine 1731 (Given - Provider: Caryn Cash RN) 0755 ([facility] Hold - Provider: Admin Adt - Reason: Transfer to a Procedural area)0919 ([facility] Unhold - Provider: Admin Adt)1700 (Due - Provider: Admin Adt) escitalopram (Lexapro) tablet 30 mg 30 mg, Oral, DAILY, First dose on Fri11/01/19 at 0900, Until Discontinued, Routine 0755 ([facility] Hold - Provider: Admin Adt - Reason: Transfer to a Procedural area)0900 (Automatically Held - Provider: Admin Adt)0919 ([facility] Unhold - Provider: Admin Adt)0944 (Given - Provider: Jason Burgos, CHA) levothyroxine (Synthroid) tablet 75 mcg 75 mcg, Oral, EVERY MORNING, First dose on Fri11/01/19 at 0600, Until Discontinued, Routine 0628 (Given - Provid er: Gilda Wylie RN)0755 ([facility] Hold - Provider: Admin Adt - Reason: Transfer to a Procedural area)0919 ([facility] Unhold - Provider: Admin Adt) lisinopriL (Prinivil;Zestril) tablet 5 mg 5 mg, Oral, DAILY, First dose on Fri11/01/19 at 0900, Until Discontinued, Routine 0755 ([facility] Hold - Provider: Admin Adt - Reason: Transfer to a Procedural area)0900 (Automatically Held - Provider: Admin Adt)0919 ([facility] Unhold - Provider: Admin Adt)0945 (Given - Provider: Jason Burgos RN) metoprolol tartrate (Lopressor) tablet 12.5 mg 12.5 mg, Oral, EVERY 6 HOURS SCHEDULED, First dose on Fri10/31/19 at 1215, Until Discontinued, Hold for SBP less than 90 mmHG or HR less than 50 beats per minute, Routine 1221 (Given - Provider: Caryn Cash, CHA)1731 (Given - Provider: Caryn Cash RN)2304 (Given - Provider: Gilda Wylie RN) 0600 (Not Given - Provider: Gilda Wylie RN - Reason: See comment - Comment: Bradycardic HRs 40s-50s)0755 (NOV Hold - Provider: Admin Adt - Reason: Transfer to a Procedural area)0919 (NOV Unhold - Provider: Admin Adt)1142 (Given - Provider: Jason Burgos RN) pantoprazole EC (Protonix) tablet 40 mg 40 mg, Oral, DAILY, First dose on Fri11/01/19 at 0900, Until Discontinued, DO NOT CRUSH OR OPEN 0755 (NOV Hold - Provider: Admin Adt - Reason: Transfer to a Procedural area)0900 (Automatically Held - Provider: Admin Adt)0919 (NOV Unhold - Provider: Admin Adt)0944 (Given - Provider: Jason Burgos RN) Continuous Medication Order 10/30/2019 10/31/2019 11/01/2019 heparin [...] Bag - Provider: Caryn Cash RN) 0755 ([facility] Hold - Provider: Admin Adt - Reason: Transfer to a Procedural area)0919 ([facility] Unhold - Provider: Admin Adt) sodium chloride 0.9% infusion 150 mL/hr, Intravenous, CONTINUOUS, Starting on 11/01/19 at 0915, Until Fri11/01/19 at 1114, Recovery [...] (Given - Provider: Caryn Cash RN) 0755 ([facility] Hold - Provider: Admin Adt - Reason: Transfer to a Procedural area)0919 ([facility] Unhold - Provider: Admin Adt) aspirin chewable tablet (CANCELED) ONCE PRN, Starting on 11/01/19 at 0812, Until Fri11/01/19 at 0919, Cath (Intra-Procedure), Routine 811 (Given - Provider: Tiny Mcpherson RN) clonazePAM (KlonoPIN) disintegrating tablet 0.25 mg 0.25 mg, Oral, 2 TIMES DAILY PRN, Starting on 10/31/19 at 1146, Until Fri11/01/19 at 1950, Anxiety, Routine 2032 (Given - Provider: Gilda Wylie RN) 0755 ([facility] Hold - Provider: Admin Adt - Reason: Transfer to a Procedural area)0919 ([facility] Unhold - Provider: Admin Adt) clopidogreL (Plavix) tablet (CANCELED) ONCE PRN, Starting on 11/01/19 at 0812, Until Fri11/01/19 at 0919, Cath (Intra-Procedure), Routine 0812 (Given - Provider: Tiny Mcpherson RN) fentaNYL 50 mcg/mL multi-dose injection (CANCELED) ONCE PRN, Starting on Fri11/01/19 at 0815, Until Fri11/01/19 at 0845, Intra-Operative (Intra-Procedure), Routine 0815 (Given - Provider: Cindy Mari, CHA) heparin (porcine) 1,000 unit/mL injection (CANCELED) ONCE PRN, Starting on Fri11/01/19 at 0829, Until Fri11/01/19 at 0845, Cath (Intra-Procedure), Routine 0829 (Given - Provider: Heide Ricardo RN) heparin (porcine) injection 0-4,000 Units(Linked Group 1) 0-4,000 Units, Intravenous, BOLUS PER HEPARIN PROTOCOL, Starting on 10/31/19 at 1146, Until 11/01/19 at 1950, Per Protocol, START ADJUSTMENT SCHEDULE 6 HOURS AFTER STARTING INFUSION Heparin UFH Level between 0.1 - 0.29 IU/mL: Bolus 1,900 units Heparin UFH Level less than 0.1 IU/mL: Bolus 3,850 units, Routine 0755 (MAR Hold - Provider: Admin Adt - Reason: Transfer to a Procedural area)0919 (MAR Unhold - Provider: Admin Adt) iohexoL (OMNIPAQUE) [...] Sublingual, EVERY 5 MIN PRN, Starting on 10/31/19 at 1146, Until Fri11/01/19 at 1950, Chest pain, May repeat every 5 minutes for a total of three doses. Notify provider if chest pain not relieved with nitroglycerin. Do not administer nitroglycerin if the patient has received or taken phosphodiesterase (PDE-5) inhibitors such as sildenafil, tadalafil or vardenafil within the last 24 to 72 hours., Routine 0755 (NOV Hold - Provider: Admin Adt - Reason: Transfer to a Procedural area)0919 (NOV Unhold - Provider: Admin Adt) nitroGLYcerin (Nitrostat) [...] UA) documented in this encounter Care Teams Machine Ii Cutter Relationship Specialty Start Date End Date Maryanne Buckley PA [address] [place] [address] PCP - General Family Medicine 1/1/20 8/18/20 documented as of this encounter
--- OUTSIDE RECORDS SUMMARY | 2024-07-06 12:04 | XMS_ITS | Encounter Summary ---
[place] [address] Care Team Providers Care Retail Event And Sales Assistant Name Role Phone Maryanne Buckley Primary Care Provider [phone]- [phone] Reason for Referral * Consultation (Urgent) - Closed Specialty Diagnoses / Procedures Referred By Contac t Referred To Contact Gastroenterology Diagnoses Peptic duodenitis SEVERE PEPTIC DUODENITIS, UNABLE TO PASS SCOPE COMPLETELY ON RECENT EGD EGD/EUS +/- dilation of duodenal stricture. 60 minutes, in about 4 weeks Procedures EUS Britton Granado MD [address] [place] [address] [address] [place] [address] [facility] [place] [address] Referral ID Status Reason Start Date Expiration Date V isits Requested Visits Authorized [id number] Closed Test Only PCP Updated and/or Approved 05/24/2024 05/24/2025 6 6 Encounter Details Date Type Department Care Team (Late st Contact Info) Description 05/24/2024 Transcribe Orders eDH Incoming Referrals [phone] Britton Granado MD [address] [place] [address] [address] [place] [address] Peptic duodenitis Social History Tobacco Use Types Packs/Day Years [...] 3:45 PM EDT Hospital En[place] [address] Wero Church MD [facility] [place] [address] 07/20/2024 3:45 PM EDT - 07/20/2024 4:45 PM EDT [place] [phone] Wero Church MD [facility] [place] [address] EGD, UPPER GI ENDOSCOPY (WRVU 2.09) Scheduled Procedures Name Priority Associated Diagnoses Date/Ti me EGD, UPPER GI ENDOSCOPY (WRVU 2.09) EGD/EUS +/- dilation of duodenal stricture. 60 minutes, in about 4 weeks 07/20/2024 3:45 PM EDT UPPER EUS- ENDOSCOPIC ULTRASOUND (WRVU 3.47) EGD/EUS +/- dilation of duodenal stricture. 60 minutes, in about 4 weeks 07/20/2024 3:45 PM EDT Scheduled Referrals Name Type Priority Associated Diagnoses Orde r Schedule REFERRAL TO ENDOSCOPY PROCEDURE Outpatient Referral Urgent Peptic Duodenitis Ordered: 05/24/2024 documented as of this encounter Visit Diagnoses Diagnosis Peptic duodenitis documented in this encounter Care Teams Retail Event And Sales Assistant Relationship Specialty Start Date End Date Maryanne Buckley PA [address] [place] [address] PCP - General Family Medicine 04/05/24 documented as of this encounter
--- OUTSIDE RECORDS SUMMARY | 2024-07-06 12:04 | XMS_ITS | Encounter Summary ---
[place] [address] Care Team Providers Care Summer Nanny Name Role Phone Maryanne Buckley Primary Care Provider [phone]- [phone] Reason for Referral * Consultation (Routine) - Closed Specialty Diagnoses / Procedures Referred By Contac t Referred To Contact Neurosurgery Diagnoses Routine general medical examination at a health care facility [place] [facility] EVAL [facility] TREAT Etelvina Dan APRN [address] [place] [address] [place] [address] [facility] [address] [place] [id number] Referral ID Status Reason Start Date Expiration Date V isits Requested Visits Authorized [id number] Closed Consult, Test & Treat PCP Updated and/or Approved 03/22/2024 03/22/2025 6 6 Encounter Details Date Type Department Care Team (Late st Contact Info) Description 04/05/2024 Transcribe Orders eDH Incoming Referrals [phone] Etelvina Dan APRN [address] [place] [address] [place] [address] Routine general medical examination at a health care facility Social History Tobacco Use Types Packs/Day Years [...] 3:45 PM EDT Hospital Encounter [place] [address] Wero Church MD [facility] [place] [address] 07/20/2024 3:45 PM EDT - 07/20/2024 4:45 PM EDT [place] [id number] Wero Church MD [facility] [place] [address] EGD, UPPER GI ENDOSCOPY (WRVU 2.09) Scheduled [...] Type Priority Associated Diagnoses Orde r Schedule Referral to Neurosurgery Outpatient Referral Routine Routine general medical examination at a health care facility Ordered: 04/05/2024 documented as of this encounter Visit Diagnoses Diagnosis Routine general medical examination at a health care facility documented in this encounter Care Teams Summer Nanny Relationship Specialty Start Date End Date Maryanne Buckley PA [address] [place] [address] PCP - General Family Medicine 04/05/24 documented as of this encounter
--- OUTSIDE RECORDS SUMMARY | 2024-07-06 12:04 | XMS_ITS | Encounter Summary ---
Author Organization [facility] [place] [address] Care Team Providers Care Household Assistant Name Role Phone Maryanne Buckley Primary Care Provider +1- [phone] Encounter Details Date Type Department Care Team (Late st Contact Info) Description 04/06/2024 [place] [address] Buffy Joseph, RN Social History Tobacco Use Types Packs/Day Years [...] encounter Miscellaneous Notes * Telephone Encounter - Buffy Joseph, RN - 04/06/2024 12:30 PM EDT Copied from [facility] #[id number]. Topic: Specialty Dept CRMs - Orders >> Apr 06, 2024 11:47 AM Sara Mcfarland wrote: Orders Request Specialist: eliz Relationship (if other than patient-full name): self Type of Request: [x] Send orders Type/Name of Order: Imaging If Labs and Imaging list name of specific test(s): MRI Cervical Spine wwo Contrast Date of Lab/Imaging/Testing Appt: Date of Provider Appt: Appt Type with Provider: Patient Requesting to Have Orders Sent to Facility Outside of [facility]: Yes If Yes, Name of Facility: [facility] Address: [address] [place] [address] [place] [address] ?? Phone #: [phone] Fax #: unknown documented in this encounter Plan of Treatment Upcoming Encounters Date Type Department Care Team (Latest Contact Info) Description 07/20/2024 3:45 PM EDT Hospital Encounter [place] [address] Wero Church MD [facility] [place] [address] 07/20/2024 3:45 PM EDT - 07/20/2024 4:45 PM EDT Surgery [place] [address] Wero Church MD [facility] [place] [address] EGD, UPPER GI ENDOSCOPY (WRVU 2.09) Scheduled [...] on filedocumented in this encounter Care Teams Household Assistant Relationship Specialty Start Date End Date Maryanne Buckley PA [address] [place] [address] PCP - General Family Medicine 04/05/24 documented as of this encounter
--- OUTSIDE RECORDS SUMMARY | 2024-07-06 12:04 | XMS_ITS | Encounter Summary ---
Author Organization [facility] [place] [address] Care Team Providers Care French Tutor Name Role Phone Maryanne Buckley Primary Care Provider +1- [phone] Encounter Details Date Type Department Care Team (Late st Contact Info) Description 05/25/2024 Telephone [place] [address] Raul Whiteside Social History Tobacco Use Types Packs/Day Years [...] encounter Miscellaneous Notes * Telephone Encounter - Raul Whiteside - 05/25/2024 9:56 AM EDT Jaclyn Carver [id number] Diagnosis/Indication: dilation of duodenal stricture Please review patient chart to confirm if previous Endoscopy procedure was performed within system. If yes, take note of Anesthesia type used. If previous procedure found, and with MAC/propofol Anesthesia support was used, schedule this procedure with Anesthesia and skip the Anesthesia portion of questions. If not performed within system, not performed at all, or performed with IVCS, ask Anesthesia questions. SCHEDULING QUESTIONS (ask all patient these questions) Have you ever had a/an Upper EUS before? No If yes, did you have any problems with the procedure (such as waking up during the procedure, pain or difficulties afterwards, etc.)? No What type of sedation was used: None (ASK ONLY FOR COLONOSCOPY PROCEDURES) Are you aware, or have you ever been told that you had a poor prep or failed prep with a previous colonoscopy? No If yes, assign the Extended MiraLAX Prep (ASK ONLY FOR COLONOSCOPY PROCEDURES) Do you have an ongoing history of constipation? (E.g., hard stools, >2 days without a bowel movement, straining or difficulty passing stool) No If yes, assign the Extended MiraLAX Prep Do you take any blood thinners or have you been diagnosed with a bleeding disorder that increases your risk of bleeding with procedures? No Do you have a Pacemaker or Defibrillator device? If yes, send pool message to Cardiology with patient information and date or procedure. No Do you have diabetes? If yes, call PCP/managing provider to discuss use of prep and any questions or concerns related to. No If yes, assign the Extended MiraLAX Prep Do you take any iron supplements or vitamins that contain iron? Yes Do you have a preference regarding the gender of your provider? No ANESTHESIA QUESTIONS (YES to any question, please book with Anesthesia support) Have you ever been diagnosed with Pulmonary Hypertension and/or Congential Heart Disease? No Have you been diagnosed with A-Fib (atrial fibrillation) that is NOT being well controled with medications? No Have you ever had an allergic or adverse reaction to Fentanyl or Versed? No Have you had a problem with sedation or anesthesia? (Waking up during procedure, extreme confusion after, etc.) No Do you have a diagnosis of Obstructive Sleep Apnea that requires the use of a c- pap machine? No Do you use an oxygen tank at home? No Do you use a rescue inhaler more than twice per day? (COPD, severe asthma) No Do you experience breathing problems when you lay flat for a period of time? No Do you regularly take prescription opioid pain medications on a daily basis? (Includes oxycodone, Percocet, Suboxone, methadone, etc.) No If yes, assign the Extended MiraLAX Prep SCHEDULING CONFIRMATIONS: Please note any and all parts of your conversation with the patient here. We offer all new patients an opportunity to have an appointment with one of our associate care providers to learn more about your upcoming procedure, ask questions and get answers. These appointmentsare offered via telehealth. Would you be interested in scheduling this appointment? (Only ask if NEW referral patient; skip this question if GI provider ordered the procedure.) No Is there any other information or concerns you would like to us to share with your care team in relation to your upcoming scheduled procedure? No You must have a responsible libertarian who will drive you to your procedure, stay on campus for the entire duration of your procedure, and drive you home from your procedure. Who will likely be your special needs bus driver for the procedure? Myke *Please Verify the height and weight, and adjust if height and/or weight have changed* Estimated body mass index is 26.09 kg/m?? as calculated from the following: Height as of 04/06/24: 162.6 cm (5' 4). Weight as of 04/06/24: 68.9 kg (152 lb). Age:53 y.o. documented in this encounter Plan of Treatment Upcoming Encounters Date Type Department Care Team (Latest Contact Info) Description 07/20/2024 3:45 PM EDT Hospital Encounter [place] [address] Wero Church MD [facility] [place] [address] 07/20/2024 3:45 PM EDT - 07/20/2024 4:45 PM EDT Surgery [place] [address] Wero Church MD [facility] [place] [address] EGD, UPPER GI ENDOSCOPY (WRVU 2.09) Scheduled [...] on filedocumented in this encounter Care Teams French Tutor Relationship Specialty Start Date End Date Maryanne Buckley PA [address] [place] [address] PCP - General Family Medicine 04/05/24 documented as of this encounter
--- OUTSIDE RECORDS SUMMARY | 2024-07-06 12:04 | XMS_ITS | Encounter Summary ---
Author Organization [facility] Address [address] [place] [address] Care Team Providers Care Well Shooter Name Role Phone Maryanne Buckley PA-C Primary Care Provider + Encounter Details Date Type Department Care Team (Latest Contact Info) Description 07/10/2017 10:59 EDT - 07/10/2017 23:59 EDT Hospital Encounter [address] [address] Unknown, Provider, Discharge Disposition: Home or Self Care Social History Tobacco Use Types Packs/Day Years Used Date Smoking Tobacco: Never Assessed Sex and Gender Information Value Date Recorded Sex Assigned at Not on file Gender Identity Not on file Sexual Orientation Not on file documented as of this encounter Discharge Disposition Disposition Code Departure Means Destination Home or Self Group Home documented in this encounter Plan of Treatment Not on file documented as of this encounter Visit Diagnoses Not on filedocumented in this encounter Care Teams Well Shooter Relationship Specialty Start Date End Date Maryanne Buckley PA-C PCP - General 05/09/14 documented as of this encounter
--- OUTSIDE RECORDS SUMMARY | 2024-07-06 12:04 | XMS_ITS | Encounter Summary ---
Author Organization [facility] Address [address] [place] [address] Care Team Providers Care Route Delivery Manager Name Role Phone Maryanne Buckley PA-C Primary Care Provider + Encounter Details Date Type Department Care Team (Latest Contact Info) Description 02/21/2015 17:55 EDT - 02/21/2015 23:59 EDT Hospital Encounter [address] [address] Unknown, Provider, Discharge Disposition: Home or Self Care Social History Tobacco Use Types Packs/Day Years Used Date Smoking Tobacco: Never Assessed Sex and Gender Information Value Date Recorded Sex Assigned at Not on file Gender Identity Not on file Sexual Orientation Not on file documented as of this encounter Discharge Disposition Disposition Code Departure Means Destination Home or Self [facility] documented in this encounter Plan of Treatment Not on file documented as of this encounter Visit Diagnoses Not on filedocumented in this encounter Care Teams Route Delivery Manager Relationship Specialty Start Date End Date Maryanne Buckley PA-C PCP - General 05/09/14 documented as of this encounter
--- OUTSIDE RECORDS SUMMARY | 2024-07-06 12:04 | XMS_ITS | Encounter Summary ---
Author Organization [facility] [place] [address] Care Team Providers Care Phys Assistant Name Role Phone Unknown Primary Care Provider Unavailabl e Encounter Details Date Type Department Care Team (Late st Contact Info) Description 03/17/2024 8:00 PM EDT Ancillary Procedure Radiology Library at [facility] [place] [phone] Tam Ritchie MD [facility] [place] [address] Social History Tobacco Use Types Packs/Day Years [...] 3:45 PM EDT Hospital Encounter [place] [address]1000 Wero Church MD [facility] [place] [address] 07/20/2024 3:45 PM EDT - 07/20/2024 4:45 PM EDT Surgery [place] [address]1000 Wero Church MD [facility] [place] [address] EGD, UPPER GI ENDOSCOPY (WRVU 2.09) Scheduled [...] Diagnosis Comments FILM LIBRARY STORAGE ONLY MR SPINE Routine 03/17/2024 7:56 PM EDT documented in this encounter Results * Film Library- Storage Only MR Spine (03/17/2024 7:56 PM EDT) Narrative [facility] - 03/17/2024 7:56 PM EDT This exam is auto-finalizing. It's purpose is for storage only. Tam Ritchie MD IMG FILM LIBRARY ORD ERABLES [place], [place] documented in this encounter Visit Diagnoses Not on filedocumented in this encounter Care Teams Phys Assistant Relationship Specialty Start Date End Date Unknown None PCP - General 05/17/20 04/04/24 documented as of this encounter
--- OUTSIDE RECORDS SUMMARY | 2024-07-06 12:04 | XMS_ITS | Encounter Summary ---
[place] [address] Care Team Providers Care Second Worker Name Role Phone Unknown Primary Care Provider Unavailabl e Reason for Referral * Diagnostic Test (Routine) - Pending Review Specialty Diagnoses / Procedures Referred By Carlito wolfe Referred To Contact Radiology Diagnoses Cervical spinal mass Procedures MRI Cervical Spine wwo Contrast Lexi Ribera MD [facility] [place] [address] [place] [address] Referral ID Status Reason Start Date Expiration Date Visits Requested Visits Authorized [id number] Pending Review Specialty Service Requested 03/17/2024 09/16/2025 1 1 Encounter Details Date Type Department Care Team (Late st Contact Info) Description 03/17/2024 Telephone [place] [address] Lexi Ribera MD [facility] [place] [address] Social History Tobacco Use Types Packs/Day Years [...] encounter Miscellaneous Notes * Telephone Encounter - Lexi Ribera MD - 03/17/2024 8:40 PM EDT Received a call from Etelvina Dan APRN regarding Jaclyn Carver who was found to have intradural, 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 Patient is a 53F not on AC/AP w PMH CAD, migraines, hypothyroid (FT4 normal though), HTN, anxiety, depression - Presented with BLE acute paresthesias and pain that started in feet and ascending up thighs; now just in feet feels numb - Finished course of cipro on Mon (2 days prior to presentation) for diverticulitis - No urinary sxs - No fever or elevated white count; tick & lyme panel pending In reference to spinal canal mass: -No neck pain, no UE symptoms (radiculopathy, weakness, sensory changes), no bulbar symptoms -No known personal cancer hx & no hx of head/neck radiation A/P: Incidental well-circumscribed enhancing intradural, 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 In either case she is asymptomatic from this and her presenting symptoms are not explained by it. Can follow up w NSGY outpatient in 1 month w repeat MRI CSP wwo to eval for interval change. Agree with Neurology consult for what sounds c/f GBS. documented in this encounter Plan of Treatment Upcoming Encounters Date Type Department Care Team (Latest Contact Info) Description 07/20/2024 3:45 PM EDT Hospital Encounter [place] [address] Wero Church MD [facility] [place] [address] 07/20/2024 3:45 PM EDT - 07/20/2024 4:45 PM EDT Surgery [place] [address] Wero Church MD [facility] [place] [address] EGD, UPPER GI ENDOSCOPY (WRVU 2.09) Scheduled Orders Name Type Priority Associated Diagnoses Orde r Schedule MRI Cervical Spine wwo Contrast Imaging Routine Cervical spinal mass Expected: 04/16/2024 (Approximate), Expires: 10/16/2024 Scheduled Procedures Name Priority Associated Diagnoses Date/Ti me EGD, UPPER GI ENDOSCOPY (WRVU 2.09) EGD/EUS +/- dilation of duodenal stricture. 60 minutes, in about 4 weeks 07/20/2024 3:45 PM EDT UPPER EUS- ENDOSCOPIC ULTRASOUND (WRVU 3.47) EGD/EUS +/- dilation of duodenal stricture. 60 minutes, in about 4 weeks 07/20/2024 3:45 PM EDT documented as of this encounter Visit Diagnoses Diagnosis Cervical spinal mass Swelling, mass, or lump in head and neck documented in this encounter Care Teams Second Worker Relationship Specialty Start Date End Date Unknown None PCP - General 05/17/20 04/04/24 documented as of this encounter
--- OUTSIDE RECORDS SUMMARY | 2024-07-06 12:04 | XMS_ITS | Encounter Summary ---
Author Organization [facility] Address [address] [place] [address] Care Team Providers Care Instructor Dancing Name Role Phone Unknown, Provider Primary Care Provider Encounter Details Date Type Department Care Team (Latest Contact Info) Description 02/16/2014 12:21 EDT - 02/16/2014 23:59 EDT Hospital Encounter [address] [address] Unknown, Provider, Discharge Disposition: Home or Self Care Social History Tobacco Use Types Packs/Day Years Used Date Smoking Tobacco: Never Assessed Sex and Gender Information Value Date Recorded Sex Assigned at Not on file Gender Identity Not on file Sexual Orientation Not on file documented as of this encounter Discharge Disposition Disposition Code Departure Means Destination Home or Self Half-Way documented in this encounter Plan of Treatment Not on file documented as of this encounter Visit Diagnoses Not on filedocumented in this encounter Care Teams Instructor Dancing Relationship Specialty Start Date End Date Unknown, Provider, PCP - General 03/11/13 05/08/14 documented as of this encounter
--- OUTSIDE RECORDS SUMMARY | 2024-07-06 12:04 | XMS_ITS | Encounter Summary ---
[place] [address] Care Team Providers Care Skiver Sock Linings Name Role Phone Maryanne Buckley Primary Care Provider +1- [phone] Reason for Referral * Diagnostic Test (Routine) - New Request Specialty Diagnoses / Procedures Referred By Contac t Referred To Contact Radiology Diagnoses Cervical spine tumor Procedures MRI Cervical Spine wwo Contrast Anthony Escalante MD [facility] [place] [address] Referral ID Status Reason Start Date Expiration Date Visits Requested Visits Authorized [id number] New Request Specialty Service Requested 04/07/2024 10/07/2025 1 1 Encounter Details Date Type Department Care Team (Late st Contact Info) Description 04/06/2024 [place] [address] Buffy Joseph, RN Cervical spine tumor Social History Tobacco Use Types Packs/Day Years [...] 3:45 PM EDT Hospital En[place] [address] Wero Church MD [facility] [place] [address] 07/20/2024 3:45 PM EDT - 07/20/2024 4:45 PM EDT [place] [address] Wero Church MD [facility] [place] [address] EGD, UPPER GI ENDOSCOPY (WRVU 2.09) Scheduled Orders Name Type Priority Associated Diagnoses Orde r Schedule MRI Cervical Spine wwo Contrast Imaging Routine Cervical spine tumor Expected: 04/08/2024, Expires: 10/08/2024 Scheduled Procedures Name Priority Associated Diagnoses Date/Ti me EGD, UPPER GI ENDOSCOPY (WRVU 2.09) EGD/EUS +/- dilation of duodenal stricture. 60 minutes, in about 4 weeks 07/20/2024 3:45 PM EDT UPPER EUS- ENDOSCOPIC ULTRASOUND (WRVU 3.47) EGD/EUS +/- dilation of duodenal stricture. 60 minutes, in about 4 weeks 07/20/2024 3:45 PM EDT documented as of this encounter Visit Diagnoses Diagnosis Cervical spine tumor Neoplasm of unspecified nature of bone, soft tissue, and skin documented in this encounter Care Teams Skiver Sock Linings Relationship Specialty Start Date End Date Maryanne Buckley PA [address] [place] [address] PCP - General Family Medicine 04/05/24 documented as of this encounter
--- OUTSIDE RECORDS SUMMARY | 2024-07-06 12:04 | XMS_ITS | Encounter Summary ---
Author Organization [facility] [place] [address] Care Team Providers Care Tax Accountant Name Role Phone Unknown Primary Care Provider Unavailabl e Encounter Details Date Type Department Care Team (Late st Contact Info) Description 03/17/2024 10:50 PM EDT Telehealth [place] [address] Telehealth, Neurology None Social History Tobacco Use Types Packs/Day Years [...] 3:45 PM EDT Hospital En[place] [address] Wero Church MD [facility] [place] [address] 07/20/2024 3:45 PM EDT - 07/20/2024 4:45 PM EDT [place] [address] Wero Church MD [facility] [place] [address] EGD, UPPER GI ENDOSCOPY (WRVU 2.09) Scheduled [...] on filedocumented in this encounter Care Teams Tax Accountant Relationship Specialty Start Date End Date Unknown None PCP - General 05/17/20 04/04/24 documented as of this encounter
--- OUTSIDE RECORDS SUMMARY | 2024-07-06 12:04 | XMS_ITS | Encounter Summary ---
Author Organization [facility] Address [facility] [place] [address] Care Team Providers Care Exceptional Student Education Teacher Name Role Phone Maryanne Buckley Primary Care Provider +1- [phone] Reason for Visit * Consultation (Routine) - Closed Specialty Diagnoses / Procedures Referred By Contac t Referred To Contact Neurosurgery Diagnoses Routine general medical examination at a health care facility [place] [facility] Etelvina Dan, SALES ACCOUNT SPECIALIST [address] [place] [address] [place] [address] [facility] Neurosurgery [address] [place] [phone] Referral ID Status Reason Start Date Expiration Date V isits Requested Visits Authorized [id number] Closed Consult, Test & Treat PCP Updated and/or Approved 03/22/2024 03/22/2025 6 6 Encounter Details Date Type Department Care Team (Latest Contact Info) Description 03/23/2024 11:00 AM EDT TH Visit (TeleHealth) [place] [address] Anthony Escalante MD [facility] [place] [address] 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 She is a 53-year-old female who was evaluatedat an outside hospital for lower extremity numbness. Fortunately she has reported that the numbnesshas completely abated. She does not have any difficulties with manual dexterity, ambulation, etc. She denies any neck pain. As part of the workup, she underwent cranial and cervical imaging. This showed a lesion along the dorsal aspect of her upper cervical spinal canal. At approximately the level of C1, she has an enhancing mass just to the left of midline that abuts but does not significantly compress the spinal cord.This appears contiguous with the meninges though it may also represent a nerve sheath tumor. The spinal cord does not have any T2 signal changes and is not compressed. 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 Given her lack of symptoms, we will electto follow this with imaging. I would recommend a follow- up MRI in 6 months and then yearly thereafter as long as it remains stable or exhibits minimal growth. She understands and will let us know if there is any change to her symptoms. documented in this encounter Plan of Treatment Upcoming Encounters Date Type Department Care Team (Latest Contact Info) Description 07/20/2024 3:45 PM EDT Hospital Encounter [place] [address] Wero Church MD [facility] [place] [address] 07/20/2024 3:45 PM EDT - 07/20/2024 4:45 PM EDT Surgery [place] [address] Wero Church MD [facility] [place] [address] EGD, UPPER GI ENDOSCOPY (WRVU 2.09) Scheduled [...] Routine Routine general medical examination at a [facility] facility Ordered: 04/05/2024 documented as of this encounter Visit Diagnoses Diagnosis 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
--- OUTSIDE RECORDS SUMMARY | 2024-07-06 12:05 | XMS_ITS | Encounter Summary ---
Author Organization [facility] [place] [address] Care Team Providers Care Clinical Education Consultant Name Role Phone Maryanne Buckley Primary Care Provider [phone] Encounter Details Date Type Department Care Team (Late st Contact Info) Description 10/30/2019 External [place] [phone] Social History Tobacco Use Types Packs/Day Years Used Date Smoking Tobacco: Never Assessed Sex and Gender Information Value Date Recorded Sex Assigned at Not on file Gender Identity Not on file Sexual Orientation Not on file documented as of this encounter Plan of Treatment Upcoming Encounters Date Type Department Care Team (Latest Contact Info) Description 07/20/2024 3:45 PM EDT Hospital En[place] [phone] Wero Church MD [facility] [place] [address] 07/20/2024 3:45 PM EDT - 07/20/2024 4:45 PM EDT [place] [phone] Wero Church MD [facility] [place] [address] EGD, UPPER GI ENDOSCOPY (WRVU 2.09) Scheduled [...] Procedure Name Priority Date/Time Associated Diagnosis Comments ECG SCAN Routine 10/30/2019 documented in this encounter Results * Scan Doc: ECG (10/30/2019) Historical Provider MEDIA MGR SCAN EX T ORDR/RSLT documented in this encounter Visit Diagnoses Not on filedocumented in this encounter Care Teams Clinical Education Consultant Relationship Specialty Start Date End Date Maryanne Buckley PA [address] [place] [address] PCP - General Family Medicine 09/29/19 05/16/20 documented as of this encounter
--- NOTE | 2024-07-06 12:20 | ED.GENADUL_ITS ---
Discharge Plan Discharge Details Chief Complaint: GenMedical Primary Care Provider: Maryanne Buckley ED Provider: Ace Cazares Home Meds and New Rx's Prescriptions: No Action levothyroxine 88 mcg capsule 88 mcg PO DAILY pantoprazole 40 mg tablet,delayed release (DR/EC) 40 mg PO DAILY sucralfate [Carafate] 1 gram tablet 1 g PO QID Probiotic 3 billion cell capsule 3,000 mmu cells PO QHS Rx Instructions: administer with a meal zaleplon 10 mg capsule 10 mg PO QHS PRN Rx Instructions: must avoid high-fat meal/food immediately before taking dose rosuvastatin 5 mg tablet 5 mg PO DAILY lisinopril 20 mg tablet 5 mg PO DAILY scopolamine base [Transderm-Scop] 1 mg over 3 days patch 3 day 1 patch transdermal Q3D PRN escitalopram oxalate 10 mg tablet 10 mg PO DAILY clonazepam 0.5 mg tablet 0.5 mg PO BID PRN escitalopram oxalate [Lexapro] 20 MG tablet 20 mg PO DAILY ondansetron 4 MG tablet,disintegrating 4 mg PO Q6H PRN PRN (Reason: Nausea / Vomiting) Qty: 15 0RF fexofenadine [Lesley Allergy] 180 mg tablet 180 mg PO DAILY simvastatin 20 mg tablet 20 mg PO QPM Patient Comments: TAKE 1 TABLET BY MOUTH AT BEDTIME clonidine HCl 0.1 mg tablet 0.1 mg PO DAILY sumatriptan succinate 100 mg tablet 100 mg PO .COMPLEX PRN Patient Comments: TAKE 1 TABLET BY MOUTH NEEDED FOR HEADACHE. MAY REPEAT ONE TIME IN FOUR HOURS IF NEEDED. DO NOT TAKE MORE THAN 2 TABLETS IN A 24 HOUR PERIOD Rx Instructions: 100 mg orally PRN; 100 mg orally; may repeat one time in 4 hours prn HPI General Date/Time Provider Initiated Documentation: 07/06/24 12:13 . HPI Narrative: [ ] year-old [ ] presents to ED today by [ ] with a chief complaint of [ ] with onset [ ]. Quality described as [ ], [ ] radiation to [ ]. Severity is described as [ ]/10. Palliating factors include [ ]. Provoking factors include [ ]. Events leading up to the incident/Associated Symptoms: [ ]. Patient [ ] anticoagulated. Related Data Home Medications ?Medication ?Instructions ?Recorded ?Confirmed escitalopram oxalate 20 mg tablet 20 mg PO DAILY 12/08/14 07/06/24 (Lexapro) ondansetron 4 mg disintegrating 4 mg PO Q6H PRN PRN Nausea / 12/08/14 07/06/24 tablet Vomiting ##15 escitalopram oxalate 10 mg tablet 10 mg PO DAILY 01/15/22 07/06/24 lisinopril 20 mg tablet 5 mg PO DAILY 01/15/22 07/06/24 rosuvastatin 5 mg tablet 5 mg PO DAILY 01/15/22 07/06/24 scopolamine base 1 mg over 3 days 1 patch transdermal Q3D PRN 01/15/22 07/06/24 transdermal patch (Transderm-Scop) zaleplon 10 mg capsule 10 mg PO QHS PRN 01/15/22 07/06/24 clonazepam 0.5 mg tablet 0.5 mg PO BID PRN 03/16/24 07/06/24 levothyroxine 88 mcg capsule 88 mcg PO DAILY 03/16/24 07/06/24 pantoprazole 40 mg tablet,delayed 40 mg PO DAILY 03/16/24 07/06/24 release sucralfate 1 gram tablet (Carafate) 1 g PO QID 03/16/24 07/06/24 fexofenadine 180 mg tablet 180 mg PO DAILY 04/20/24 07/06/24 (Lesley Allergy) simvastatin 20 mg tablet 20 mg PO QPM 04/20/24 07/06/24 lactobacillus combination no.4 3 3,000 mmu cells PO QHS 05/18/24 07/06/24 billion cell capsule (Probiotic) clonidine HCl 0.1 mg tablet 0.1 mg PO DAILY 07/06/24 07/06/24 sumatriptan succinate 100 mg tablet 100 mg PO .COMPLEX PRN 07/06/24 07/06/24 Previous Rx's ?Medication ?Instructions ?Recorded ondansetron 4 mg disintegrating 4 mg PO Q6H PRN PRN Nausea / 12/08/14 tablet Vomiting ##15 Allergies Allergy/AdvReac Type Severity Reaction Status Date / Time NSAIDS (Non-Steroidal Allergy Severe Other (See Verified 07/06/24 12:13 Anti-Inflamma Comment) prednisone Allergy Unknown Other (See Verified 07/06/24 12:13 Comment) adhesive AdvReac Mild Skin Rash Verified 07/06/24 12:13 enviornmental Allergy Mild irritated Uncoded 07/06/24 12:13 eyes,sneezing General Stated Complaint: GenMedical BRAXTON: 3 Review of Systems All systems reviewed & are unremarkable except as noted in HPI and below Exam Narrative Exam Narrative: GENERAL APPEARANCE: Well-nourished, non-toxic, awake and alert, atraumatic, no acute distress. SKIN: Warm, pink, dry, intact, without rashes/lesions/ulcerations. HEAD: Normocephalic, atraumatic, normal hair distribution for gender/age. EYES: Normal conjunctiva, no exudates on lids/lashes. ENT: Nares patent, no circumoral cyanosis, no facial swelling NECK: Supple, trachea midline, painless cervical ROM. LUNGS/CHEST: Lungs CTA bilaterally, non-labored respirations, normal A/P diameter, symmetrical expansion, no chest wall deformity HEART (CV/PV): Regular rate and rhythm without murmur, no peripheral edema, no JVD. ABDOMEN: Soft, non-distended, no guarding. MSK: Normal ROM, no swelling/deformity to bilateral UEs or LEs, moving all extremities without weakness, no cyanosis, spine midline without tenderness, normal curvature. NEURO: Mental Status AAOx4 - alert to person, place, time, events No facial droop, no forehead involvement. Motor: No focal weakness - strength 5/5 in bilateral UEs and LEs, proximal and distal, symmetric. Sensory: sensation intact to light touch globally. Gait normal: patient ambulated without ataxia into ED room. PSYCH: euthymic, cooperative, pleasant, appropriate speech Course Vital Signs Vital signs: Vital Signs Temperature 36.6 C 07/06/24 12:06 Pulse 88 07/06/24 12:06 Respiratory Rate 12 07/06/24 12:06 Blood Pressure 135/92 H 07/06/24 12:06 Pulse Oximetry 99 07/06/24 12:06 Temperature 36.6 C 07/06/24 12:06 Temperature Source Skin 07/06/24 12:06 Pulse 88 07/06/24 12:06 Respiratory Rate 12 07/06/24 12:06 Blood Pressure 135/92 H 07/06/24 12:06 Blood Pressure Position Sitting 07/06/24 12:06 Pulse Oximetry 99 07/06/24 12:06 Oxygen Delivery Method Room Air 07/06/24 12:06 Oxygen Flow Rate 0 07/06/24 12:06 Pain Level 0 07/06/24 12:06 Medical Decision Making This dictation utilizes [id number] dictation software and may contain unedited grammatical errors. [ ]. Patients' medical history: [ ]. Family and social history: [ ]. Pertinent exam findings / vital signs include [ ]. Differential / pathologies of concern include [ ]. Diagnostic studies of: -[ ]. Interventions of: -[ ]. ED Course/Assessment/Plan: [ ]. Findings not consistent with [ ]. Disposition of [ ]. Patient verbalized understanding of the plan and return to ED criteria and engaged in shared decision making. Quality:SDOH Health Related Social Needs: No Data to Display PFSH All Active Problems Duodenal ulcer (Acute) GERD (gastroesophageal reflux disease) (Chronic) Anemia (Chronic) Dysphagia (Acute) Screening for colon cancer (Acute) Medical History Abdominal pain CAD (coronary artery disease) Pt states an AR in 2019. [place] [facility] [place] st[place]. Migraine Dysmenorrhea (04/27/14) Endocervical polyp (04/27/14) Complex ovarian cyst (04/27/14) Seasonal/ environmental allergies Hypothyroidism Dysmenorrhea Depression Anxiety Menorrhagia Cervical polyp Essential hypertension Surgical History History of colonoscopy (~03/2024) History of esophagogastroduodenoscopy (~03/2024) Cholecystectomy 2013 Family History Mother No problems noted. Father No problems noted. Other Diabetes Heart disease Mental disorder Myocardial infarction Personal history of malignant neoplasm Social History Smoking/Tobacco Use Status: Never Smoking risk assessment performed?: Yes Alcohol Intake: never Drug use: Never Substance use type: does not use Housing: house Do you feel safe at home: Yes Do you feel safe in your relationship?: Yes
--- NOTE | 2024-07-06 14:47 | ED.GENADUL_ITS ---
Discharge Plan Disposition Patient Disposition: Home Condition: Stable Discharge Details Clinical Impression: Paresthesias Primary Care Provider: Maryanne Buckley ED Provider: Farooq Salazar Home Meds and New Rx's Prescriptions: Continued levothyroxine 88 mcg capsule 88 mcg PO DAILY pantoprazole 40 mg tablet,delayed release (DR/EC) 40 mg PO DAILY sucralfate [Carafate] 1 gram tablet 1 g PO QID Probiotic 3 billion cell capsule 3,000 mmu cells PO QHS Rx Instructions: administer with a meal zaleplon 10 mg capsule 10 mg PO QHS PRN Rx Instructions: must avoid high-fat meal/food immediately before taking dose rosuvastatin 5 mg tablet 5 mg PO DAILY lisinopril 20 mg tablet 5 mg PO DAILY scopolamine base [Transderm-Scop] 1 mg over 3 days patch 3 day 1 patch transdermal Q3D PRN escitalopram oxalate 10 mg tablet 10 mg PO DAILY clonazepam 0.5 mg tablet 0.5 mg PO BID PRN escitalopram oxalate [Lexapro] 20 MG tablet 20 mg PO DAILY ondansetron 4 MG tablet,disintegrating 4 mg PO Q6H PRN PRN (Reason: Nausea / Vomiting) Qty: 15 0RF fexofenadine [Lesley Allergy] 180 mg tablet 180 mg PO DAILY simvastatin 20 mg tablet 20 mg PO QPM Patient Comments: TAKE 1 TABLET BY MOUTH AT BEDTIME clonidine HCl 0.1 mg tablet 0.1 mg PO DAILY sumatriptan succinate 100 mg tablet 100 mg PO .COMPLEX PRN Patient Comments: TAKE 1 TABLET BY MOUTH NEEDED FOR HEADACHE. MAY REPEAT ONE TIME IN FOUR HOURS IF NEEDED. DO NOT TAKE MORE THAN 2 TABLETS IN A 24 HOUR PERIOD Rx Instructions: 100 mg orally PRN; 100 mg orally; may repeat one time in 4 hours prn Discharge Instructions Additional Instructions: Your exam and blood work today did not show any emergent findings at this time. Your TSH level was high so I would discuss with your primary care provider if your levothyroxine should be adjusted. I did place a referral to have you see neurology If you feel more ill, have new symptoms such as difficulty breathing return to the emergency department for reevaluation Referrals: Medina Clayton MD [ [facility] STAFF PHYSICIAN] - [facility] General Mode of arrival: ambulatory . Date/Time Provider Initiated Documentation: 07/06/24 12:13 . Limitations to Documentation: no limitations . Information obtained by: patient . History of Present Illness 53 year old F presents to the emergency department with the chief complaint of pins and needles all over body, Quality is described as other (pins and needles ), and is localized to the chest, abdomen, upper extremity and lower extremity. Patient started experiencing this month(s) (4) and it has been constant. No relieving factors improve symptom(s), No exacerbating factors reported . Patient notes no other symptoms.. Patient did receive the following treatments prior to arrival, none Related Data Home Medications ?Medication ?Instructions ?Recorded ?Confirmed escitalopram oxalate 20 mg tablet 20 mg PO DAILY 12/08/14 07/06/24 (Lexapro) ondansetron 4 mg disintegrating 4 mg PO Q6H PRN PRN Nausea / 12/08/14 07/06/24 tablet Vomiting ##15 escitalopram oxalate 10 mg tablet 10 mg PO DAILY 01/15/22 07/06/24 lisinopril 20 mg tablet 5 mg PO DAILY 01/15/22 07/06/24 rosuvastatin 5 mg tablet 5 mg PO DAILY 01/15/22 07/06/24 scopolamine base 1 mg over 3 days 1 patch transdermal Q3D PRN 01/15/22 07/06/24 transdermal patch (Transderm-Scop) zaleplon 10 mg capsule 10 mg PO QHS PRN 01/15/22 07/06/24 clonazepam 0.5 mg tablet 0.5 mg PO BID PRN 03/16/24 07/06/24 levothyroxine 88 mcg capsule 88 mcg PO DAILY 03/16/24 07/06/24 pantoprazole 40 mg tablet,delayed 40 mg PO DAILY 03/16/24 07/06/24 release sucralfate 1 gram tablet (Carafate) 1 g PO QID 03/16/24 07/06/24 fexofenadine 180 mg tablet 180 mg PO DAILY 04/20/24 07/06/24 (Lesley Allergy) simvastatin 20 mg tablet 20 mg PO QPM 04/20/24 07/06/24 lactobacillus combination no.4 3 3,000 mmu cells PO QHS 05/18/24 07/06/24 billion cell capsule (Probiotic) clonidine HCl 0.1 mg tablet 0.1 mg PO DAILY 07/06/24 07/06/24 sumatriptan succinate 100 mg tablet 100 mg PO .COMPLEX PRN 07/06/24 07/06/24 Previous Rx's ?Medication ?Instructions ?Recorded ondansetron 4 mg disintegrating 4 mg PO Q6H PRN PRN Nausea / 12/08/15 tablet Vomiting ##15 Allergies Allergy/AdvReac Type Severity Reaction Status Date / Time NSAIDS (Non-Steroidal Allergy Severe Other (See Verified 07/06/24 12:13 Anti-Inflamma Comment) prednisone Allergy Unknown Other (See Verified 07/06/24 12:13 Comment) adhesive AdvReac Mild Skin Rash Verified 07/06/24 12:13 enviornmental Allergy Mild irritated Uncoded 07/06/24 12:13 eyes,sneezing General Stated Complaint: GenMedical BRAXTON: 3 Review of Systems All systems reviewed & are unremarkable except as noted in HPI and below Constitutional Constitutional: Denies chills, Denies fever(s) and Denies weakness Eyes Eyes: Denies loss of vision Cardiovascular Cardiovascular: Denies chest pain and Denies dyspnea Respiratory Respiratory: Denies cough and Denies dyspnea Gastrointestinal Gastrointestinal: Denies abdominal pain, Denies nausea and Denies vomiting Musculoskeletal Musculoskeletal: Denies abnormal gait, Denies joint swelling and Reports tingling Neurologic Neurologic: Denies abnormal movements, Denies abnormal gait, Denies loss of vision, Reports tingling and Denies weakness Exam Const General: no acute distress Orientation: alert [facility] Head: normal to inspection Ears: external ears normal General nose exam: external nose normal Mouth: moist mucous membranes Eyes General: appearance normal, both eyes and all related structures Neck Neck: normal visual inspection Resp Effort & Inspection: normal respiratory effort and able to speak in complete sentences Cardio Rate: regular rate Skin General skin exam: no rashes or lesions noted Neuro General: patient alert, patient oriented x3, gait normal, no focal motor deficits, CN's II-XI intact bilaterally, normal sensation to monofilament, deep tendon reflexes 2+ bilaterally and not confused Cranial Nerves: CN's II-XI intact bilaterally Cognition: normal cognition Speech: speech normal Gait: normal gait Motor: muscle tone normal throughout Sensory Exam: no sensory deficits noted Extrem General: normal to inspection Psych Mental Status: mental status grossly normal Course Vital Signs Vital signs: Vital Signs Temperature 36.6 C 07/06/24 12:06 Pulse 88 07/06/24 12:06 Respiratory Rate 12 07/06/24 12:06 Blood Pressure 135/92 H 07/06/24 12:06 Pulse Oximetry 99 07/06/24 12:06 Temperature 36.6 C 07/06/24 14:02 Temperature Source Oral 07/06/24 14:02 Pulse 72 07/06/24 14:02 Respiratory Rate 12 07/06/24 14:02 Respiratory Effort Normal, Non-Labored 07/06/24 14:02 Respiratory Depth Normal 07/06/24 14:02 Respiratory Pattern Normal 07/06/24 14:02 Blood Pressure 118/74 07/06/24 14:02 Blood Pressure Mean 88 07/06/24 14:02 Blood Pressure Position Sitting 07/06/24 14:02 Pulse Oximetry 98 07/06/24 14:02 Oxygen Delivery Method Room Air 07/06/24 14:02 Oxygen Flow Rate 0 07/06/24 14:02 Pain Level 2 07/06/24 14:02 Medical Decision Making 53-year-old female with a history of depression, anxiety, hypertension, hypothyroidism, comes in with continued pins and needle sensation throughout her body. She was seen for similar complaints in February and had an MRI of her head and spine which did not show any acute abnormalities of her spinal cord or head. She says that that time the meef-igv-jshhgyd was primarily in her legs but now is all over her body. She denies any weakness, changes in gait, Changes in speech. She is speaking clearly, alert orient x 4 with normal speech. Cranial nerves II through XII are intact. She has no focal motor or sensation deficits. She has no abnormalities noted on the skin or on musculoskeletal exam of her legs and arms and has full 5 out of 5 strength in all muscle groups. She has normal 2+ deep tendon reflexes. Her symptoms do not seem consistent with an etiology such as Guillain-Krause? or any acute illness such as CVA or spinal cord pathology. She had vitamin B12 levels checked when she was here in February which were normal. So doubt this. Will check for electrolyte abnormalities and reassess. She has no weakness, no reported weakness in her eyelids or changes in vision so doubt myasthenia gravis. Labs unremarkable and patient stable with intact reflexes. I did discuss LP risks and benefits and after discussion she declines to have an LP done which I feel is reasonable given my suspicion for entities such as Guillain-Krause? is low. I will provide a referral to see neurology at her request which I feel is reasonable given she has continued paresthesias, return precautions given Differential Diagnosis Differential Diagnosis: Electrolyte abnormality, anxiety, neuropathy Quality:SDOH Health Related Social Needs: No Data to Display PFSH All Active Problems (Updated 07/06/24 @ 16:42 by Farooq Salazar MD) Paresthesias (Acute) Duodenal ulcer (Acute) GERD (gastroesophageal reflux disease) (Chronic) Anemia (Chronic) Dysphagia (Acute) Screening for colon cancer (Acute) Medical History Abdominal pain CAD (coronary artery disease) Pt states an NV in 2020. Went to [facility] with no stents placed. Migraine Dysmenorrhea (04/27/14) Endocervical polyp (04/27/14) Complex ovarian cyst (04/27/14) Seasonal/ environmental allergies Hypothyroidism Dysmenorrhea Depression Anxiety Menorrhagia Cervical polyp Essential hypertension Surgical History History of colonoscopy (~03/2024) History of esophagogastroduodenoscopy (~03/2024) Cholecystectomy 2013 Family History Mother No problems noted. Father No problems noted. Other Diabetes Heart disease Mental disorder Myocardial infarction Personal history of malignant neoplasm Social History Smoking/Tobacco Use Status: Never Smoking risk assessment performed?: Yes Alcohol Intake: never Drug use: Never Substance use type: does not use Housing: house Do you feel safe at home: Yes Do you feel safe in your relationship?: Yes
[2024-07-06 15:17] LABS: Abs Immature Grans 0.01 10^3/uL (0.0-0.06); Absolute Basophil Count 0.04 10^3/uL (0.0-0.2); Absolute Eosinophil Count 0.07 10^3/uL (0.0-0.7); Absolute Lymphocyte Count 0.87 10^3/uL (1.2-3.4); Absolute Monocyte Count 0.32 10^3/uL (0.1-0.8); Absolute Neutrophil Count 3.39 10^3/uL (1.2-6.7); Basophils % 0.9 %; Eosinophils % 1.5 %; HCT 33.4 % (36.0-46.0); HGB 10.9 g/dL (11.2-15.7); Immature Grans % 0.2 %; Lymphocytes % 18.5 %; MCH 30.8 pg (27.0-33.0); MCHC 32.6 % (32.0-36.0); MCV 94 fL (80-95); MPV 10.1 fL (8.0-11.0); Monocytes % 6.8 %; Neutrophils % 72.1 %; Platelet Count 254 10^3/uL (130-400); RBC 3.54 10^6/uL (3.93-5.22); RDW 14.6 % (11.7-14.6); RDW-SD 50.7 fL
[2024-07-06 15:34] LABS: ALT 34 U/L (14-59); AST 22 U/L (15-37); Albumin 4.2 g/dL (3.4-5.0); Alkaline Phosphatase 74 U/L (46-116); BUN 19 mg/dL (7-18); Calcium 10.1 mg/dL (8.5-10.1); Chloride 107 mmol/L (98-107); Estimated GFR 66.95 (mL/min/1.73m2); Glucose 87 mg/dL (74-106); Magnesium 2.4 mg/dL (1.8-2.4); PHOSPHORUS 3.2 mg/dL (2.6-4.7); Potassium 4.4 mmol/L (3.5-5.1); Sodium 142 mmol/L (136-145); Total Protein 7.9 g/dL (6.4-8.2)
[2024-07-06 15:45] LABS: TSH (W/Ref FT4) 10.97 uIU/mL (0.36-3.74)
== END 2024-07-06 17:06 | disposition home or self-care (01) ==
PROVIDERS: Emergency Provider Emergency Medicine; PCP Physician Assistant Medical
DX: R20.0 Anesthesia of skin (principal); R20.2 Paresthesia of skin; I10 Essential (primary) hypertension; I25.10 Atherosclerotic heart disease of native coronary artery without angina pectoris; I25.2 Old myocardial infarction; E03.9 Hypothyroidism, unspecified
CPT/HCPCS: 80053; 99283; 83735; 84100; 84439; 84443; 85025

== ENCOUNTER 2024-08-09 13:42 | Outpatient (REF) | payer BC, SELFPAY ==
[2024-08-09 16:48] LABS: ALT 46 U/L (14-59); AST 29 U/L (15-37); Albumin 3.5 g/dL (3.4-5.0); Alkaline Phosphatase 83 U/L (46-116); Anion Gap 6.4 mmol/L (3-11); BUN 18 mg/dL (7-18); Bilirubin, Total 0.28 mg/dL (0.2-1.0); CO2 29.6 mmol/L (21.0-32.0); Calcium 9.7 mg/dL (8.5-10.1); Calculated LDL 96 mg/dL (<100); Chloride 107 mmol/L (98-107); Cholesterol 187 mg/dL (<200); Estimated GFR 66.95 (mL/min/1.73m2); Glucose 80 mg/dL (74-106); HDL Cholesterol 48 mg/dL (40-60); Magnesium 3.1 mg/dL (1.8-2.4); Potassium 4.4 mmol/L (3.5-5.1); Sodium 143 mmol/L (136-145); TSH (W/Ref FT4) 7.18 uIU/mL (0.36-3.74); Total Protein 7.1 g/dL (6.4-8.2); Triglyceride 216 mg/dL (<150)
[2024-08-09 17:18] LABS: FREE T4 0.77 ng/dL (0.76-1.46)
[2024-08-09 22:17] LABS: Estradiol 13 pg/mL (See Note)
== END 2024-08-09 13:43 | disposition home or self-care (01) ==
LOC: NCHCN 13:42
PROVIDERS: PCP Physician Assistant Medical; Visit Provider Physician Assistant Medical
DX: N95.9 Unspecified menopausal and perimenopausal disorder (principal); E78.5 Hyperlipidemia, unspecified; R19.7 Diarrhea, unspecified
CPT/HCPCS: 80053; 80061; 82670; 83735; 84439; 84443

== ENCOUNTER 2024-11-10 18:49 | Outpatient (REF) | payer BC, SELFPAY ==
--- OUTSIDE RECORDS SUMMARY | 2024-11-10 18:51 | XMS_ITS | Patient Health Record ---
Author Organization [facility] Address [address] [place] [address] Care Team Providers Care Saxophone Assembler Name Role Phone Rafael Gentile MD Unavailable [phone] ALLERGIES Allergen (clinical drug ingredient) Drug/Non Drug [...] Date Status Comme nts [place] includes admin 80705 TD Transdermal 10/30/2017 Administered Weeks pre-employment PROBLEMS Problem Type ICD Code Onset Dates Problem Status W/U Status Risk SNOMED Code Notes Problem Pre-employment health screening examination (Z02.1) Active confirmed [id number] PLAN OF TREATMENT No Information Insurance Providers Payer Name Payer Address Payer Phone Subscriber Number Group Number Insured Name Patient Relationship to Insured Coverage Start Date Coverage End Date MEDICAID [facility] [place], [place] [id number] ADAM TOMAS Self - patient is the insured SELF [place]Y [place] [address] [place] [address] [id number] ADAM TOMAS Self - patient is the insured MEDICAL (GENERAL) HISTORY Medical History History ICD Code High blood pressure Depression Frequent headaches Surgical History Surgery Date(Month/Year) [facility] 2012
--- OUTSIDE RECORDS SUMMARY | 2024-11-10 18:52 | XMS_ITS | Encounter Summary ---
Author Organization [facility] Address [address] [place] [address] Care Team Providers Care Emergency Medical Technician Name Role Phone Unknown, Provider Primary Care Provider Unava ilable Encounter Details Date Type Department Care Team (Late st Contact Info) Description 02/16/2014 Results Only [facility] [phone] Yves Lexy Brian, DO [address] [place] [address] Social History Tobacco Use Types Packs/Day Years Used Date Smoking Tobacco: Never Assessed Comments Unknown Sex and Gender Information Value Date Recorded Sex Assigned at Not on file Legal Sex Female 13:01 EDT Gender Identity Not on file Sexual Orientation [...] ? ADAM CARVER ? Accession #: ? [id number] ? : ? 1970 (Age: 43) ??F ? Collect Date: ? 02/16/2014 ? Location: ? [facility] ? Receive Date: ? 02/16/2014 ? Provider: LEXY RAZO DO Copy to: KESHIA NELSON ? Final [...] duct margin is inked black. ? Two apparel trimmings sales representative sections and the inked en face cystic duct margin are submitted in 1. Dr. Gomez 02/17/2014 03:07 PM End of Report [facility] 02/16/2014 20:3 9 EDT 02/16/2014 20:39 EDT us Lexy Razo DO PATHOLOGY ORDERABLES Final Res ult [facility] [address] [place] [address] documented in this encounter Visit Diagnoses Not on filedocumented in this encounter Care Teams Emergency Medical Technician Relationship Specialty Start Date End Date Unknown, Provider, PCP - General 03/11/13 05/08/14 documented as of this encounter
--- OUTSIDE RECORDS SUMMARY | 2024-11-10 18:52 | XMS_ITS | Encounter Summary ---
Author Organization [facility] Address [address] [place] [address] Care Team Providers Care Paper Bag Making Machinist Name Role Phone Maryanne Buckley PA-C Primary Care Provider + Encounter Details Date Type Department Care Team (Late st Contact Info) Description 04/17/2021 Lab Requisition [facility] Pathology & Laboratory Medicine - [facility] [address] [place] [address] Maryanne Buckley PA-C [address] [place] [address] Encounter for other general examination Social History Tobacco Use Types Packs/Day Years Used Date Smoking Tobacco: Never Assessed Interpersonal Safety Answer Date Record ed Physically Hurt Never 04/30/2020 Verbally Threaten Not on file 04/30/2020 Comments Unknown Sex and Gender Information Value [...] types, PCR Negative Negative 04/30/2021 15:06 EDT [facility] Comment:No E6 or E7 mRNA is detected from HPV types 16,18,31,33,35,39,45,51,52,56,58,59,66, and 68 by germination worker mediated amplification. Papanicolaou smear specimen (specimen) CERVIX UTERI STRUCTURE / Unknown 04/13/2021 10:10 EDT 04/27/2021 8:44 EDT us Maryanne Buckley PA-C MICROBIOLOGY - GENERAL O RDERABLES Final Result [facility] [address] [place] [address] * PAP TEST (04/13/2021 10:10 EDT) Specimens A. Cervix and/or Endocervix , ThinPrep Imaging System with Manual Evaluation 04/30/2021 15:07 T [facility] Specimen Adequacy Satisfactory for Evaluation - transformation zone component present 04/30/2021 15:07 [facility] General Categorization Negative for intraepithelial lesion or malignancy 04/30/2021 15:07 T [facility] Attestation . 04/30/2021 15:07 [facility] at 1506 Clinical History See below 04/30/20 21 15:07 T [facility] HPV The result for the Human Papillomavirus (HPV) Detection-High Risk Types is Negative. No E6 or E7 mRNA is detected from HPV types 16,18,31,33,35,39 ,45,51,52,56,58,5 9,66, and 68 by germination worker mediated amplification.Michaela ting was performed on specimen [id number] and was resulted on 04/30/2021 1503 EDT by [facility]NO[facility], LAB INSTRUMENT RESULTS IN 04/30/2021 15:07 T [facility] Performing Lab [facility] 04/30/2021 15:07 T [facility] Scanned Images 04/30/2021 15:07 EDT [facility] Papanicolaou smear specimen (specimen) CERVIX UTERI STRUCTURE / Unknown 04/13/2021 10:10 EDT 04/17/2021 13:00 EDT us Maryanne Buckley PA-C PATHOLOGY ORDERABLES Fin al Result [facility] [address] [place] [address] documented in this encounter Visit Diagnoses Diagnosis Encounter for other general examination documented in this encounter Care Teams Paper Bag Making Machinist Relationship Specialty Start Date End Date Maryanne Buckley PA-C PCP - General 05/09/14 documented as of this encounter
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
--- OUTSIDE RECORDS SUMMARY | 2024-11-10 18:52 | XMS_ITS | Encounter Summary ---
Author Organization [facility] Address [facility] [place] [address] Care Team Providers Care Guest Relations Receptionist Name Role Phone Maryanne Buckley Primary Care Provider +1- [phone] Encounter Details Date Type Department Care Team (Late st Contact Info) Description 10/11/2024 4:45 PM EST Ancillary Procedure Radiology Library at [facility] [place] [address] Chaparro Mello MD [facility] [address] Social History Tobacco Use Types Packs/Day Years Used Date Smoking Tobacco: Never Smokeless Tobacco: Never Alcohol Use Standard Drinks/Week Comments Not Currently 0 (1 standard drink = 0.6 oz pur e alcohol) Rarely [facility] Utilities Answer Date Recorded In the past 12 months has e [employer], gas, oil, or water [employer] threatened to shut off services in your [...] any time in the past 12 m [facility], were you homeless or living in a [facility] (including now)? No 09/08/2024 IPV Inpatient Questions Answer Date Recorded Prevent [...] Associated Diagnosis Comments FILM LIBRARY STORAGE ONLY CT ABDOMEN AND PELVIS Routine 10/11/2024 4:45 PM EST documented in this encounter Results * Film Library- Storage Only CT Abdomen & Pelvis (10/11/2024 4:45 PM EST) 10/11/2024 5:37 PM EST Narrative RAD - 10/11/2024 5:37 PM EST This exam is auto-finalizing. It's purpose is for storage only. Chaparro Mello MD IMG FILM LIBRARY ORD ERABLES [facility] [place], [place] documented in this encounter Visit Diagnoses Not on filedocumented in this encounter Care Teams Guest Relations Receptionist Relationship Specialty Start Date End Date Maryanne Buckley PA [address] [place] [address] PCP - General Family Medicine 04/05/24 documented as of this encounter
--- OUTSIDE RECORDS SUMMARY | 2024-11-10 18:52 | XMS_ITS | Encounter Summary ---
Author Organization [facility] Address [address] [place] [address] Care Team Providers Care City Recorder Name Role Phone Unknown, Provider Primary Care Provider Unava ilable Encounter Details Date Type Department Care Team (Latest Contact Info) Description 02/16/2014 12:21 EDT - 02/16/2014 23:59 EDT Hospital Encounter [address] [address] Unknown, Provider, Discharge Disposition: Home or Self [...] Code Departure Means Destination Home or Self [facility] documented in this encounter Plan of Treatment Not on file documented as of this encounter Visit Diagnoses Not on filedocumented in this encounter Care Teams City Recorder Relationship Specialty Start Date End Date Unknown, Provider, PCP - General 03/11/13 05/08/14 documented as of this encounter
--- OUTSIDE RECORDS SUMMARY | 2024-11-10 18:52 | XMS_ITS | Encounter Summary ---
Author Organization [facility] Address [address] [place] [address] Care Team Providers Care Glassine Machine Tender Name Role Phone Unknown, Provider Primary Care Provider Unava ilable Encounter Details Date Type Department Care Team (Late st Contact Info) Description 05/04/2014 Results Only [facility] Laboratory Services - [facility] [address] [place] [id number] Sivan Gibbs, DANIEL Social History Tobacco Use Types Packs/Day Years [...] ? ADAM CARVER ? Accession #: ? [id number] ? : ? 1970 (Age: 43) ??F ? Collect Date: ? 05/04/2014 ? Location: ? [facility] ? Receive Date: ? 05/05/2014 ? Provider: SIVAN GIBBS OFFSET ASSISTANT PRESS OPERATOR Copy to: KESHIA NELSON ? Final Pathologic [...] LOPES 05/04/2014 9:18 EDT 05/05/2014 9:18 EDT us Sivan Gibbs NP PATHOLOGY ORDERABLES Final Re sult [facility] [address] [place] [address] documented in this encounter Visit Diagnoses Not on filedocumented in this encounter Care Teams Glassine Machine Tender Relationship Specialty Start Date End Date Unknown, Provider, PCP - General 03/11/13 05/08/14 documented as of this encounter
--- OUTSIDE RECORDS SUMMARY | 2024-11-10 18:52 | XMS_ITS | Encounter Summary ---
Author Organization [facility] Address [address] [place] [address] Care Team Providers Care Cardiology Associate Name Role Phone Maryanne Buckley PA-C Primary Care Provider + Encounter Details Date Type Department Care Team (Late st Contact Info) Description 01/23/2021 Lab Requisition [facility] Pathology & Laboratory Medicine - [address] [id number] Outr Resulting Lab, Provider Social History Tobacco [...] Quantiferon Interpretation Negative Negative 01/24/2021 13:05 EDT [facility] Comment: No interferon-gamma response [...] minus Nil 0.03 IU/ml 01/25/20 13:05 EDT [facility] TB2 Ag minus Nil 0.03 IU/mL 01/25/20 13:05 EDT [facility] Blood VENOUS BLOOD / Unknown 01/22/2021 13:59 EDT 01/23/2021 15:55 EDT Narrative [facility] - 01/24/2021 13:05 EDT Results were obtained with the [employer] QuantiFERON-TB Gold Plus RICK. us Provider Outr Resulting Lab CHEMISTRY & BLOOD GA S ORDERABLES Final Result Performing Organization Address City/State/[facility] Co de Phone Number [facility] [address] [place] [address] documented in this encounter Visit Diagnoses Not on filedocumented in this encounter Care Teams Cardiology Associate Relationship Specialty Start Date End Date Maryanne Buckley PA-C PCP - General 05/09/14 documented as of this encounter
--- OUTSIDE RECORDS SUMMARY | 2024-11-10 18:52 | XMS_ITS | Encounter Summary ---
Author Organization [facility] Address [address] [place] [address] Care Team Providers Care Mortgage Servicing Specialist Name Role Phone Unknown, Provider Primary Care Provider Unava ilable Encounter Details Date Type Department Care Team (Late st Contact Info) Description 03/10/2013 Results Only [facility] Laboratory Services - [facility] ([facility]) [address] [place], [place] [address] Keshia Buckley PA-C [address] [place] [address] Social History Tobacco Use Types Packs/Day Years [...] ? ADAM CARVER ? Accession #: ? [id number] ? : ? 1970 (Age: 42) ??F [...] types 16,18,31,33,35, 39,45,51,52,56,58, 59,66, and 68 by it help desk technician mediated amplification. Comments Document reviewed and electronically signed by: ? System Interface ? Report date: 03/19/2013 By the signature above, the attending physician certifies that he/she has personally conducted a gross and/or microscopic examination of the described specimens and rendered or confirmed the above diagnosis. End of Report [facility] 03/10/2013 03/11/2013 us Keshia Buckley PA-C PATHOLOGY ORDERABLES Fin al Result Performing Organization Address City/State/[facility] Co de Phone Number [facility] [address] [place] [address] documented in this encounter Visit Diagnoses Not on filedocumented in this encounter Care Teams Mortgage Servicing Specialist Relationship Specialty Start Date End Date Unknown, Provider, PCP - General 03/11/13 05/08/14 documented as of this encounter
--- OUTSIDE RECORDS SUMMARY | 2024-11-10 18:52 | XMS_ITS | Encounter Summary ---
Author Organization [facility] Address [facility] [place] [address] Care Team Providers Care Label Stitcher Name Role Phone Maryanne Buckley Primary Care Provider +1- [phone] Encounter Details Date Type Department Care Team (Late st Contact Info) Description 09/13/2024 Telephone [place] [id number] Nathalie Deutsch MD [facility] [place] [address] Social History Tobacco Use Types Packs/Day Years Used Date Smoking Tobacco: Never Smokeless Tobacco: Never Alcohol Use Standard Drinks/Week Comments Not Currently 0 (1 standard drink = 0.6 oz pur e alcohol) Rarely [facility] Utilities Answer Date Recorded In the past 12 months has [employer], gas, oil, or water [employer] threatened to shut off services in your [...] in the past 12 m [facility], were you homeless or living in a skilled nursing (including now)? No 09/08/2024 DH IPV Inpatient [...] AM EDT documented as of this encounter Miscellaneous Notes * Telephone Encounter - Nathalie Deutsch MD - 09/13/2024 4:22 PM EST Called patient regarding phone call over the weekend. Pt states she last vomited on Friday and is now keeping down clear liquids. Zofran helps a [place]. She is keeping hydrated. 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 She can slowly trial full liquids/protein shakes. She knows to reach back out if her symptoms worsen/she feels dehydrated, worsening pain or other concerning symptoms. documented in this encounter Plan of Treatment Not on file documented as of this encounter Visit Diagnoses Not on filedocumented in this encounter Care Teams Label Stitcher Relationship Specialty Start Date End Date Maryanne Buckley PA [address] [place] [address] PCP - General Family Medicine 7/8/24 documented as of this encounter
--- OUTSIDE RECORDS SUMMARY | 2024-11-10 18:52 | XMS_ITS | Encounter Summary ---
Author Organization [facility] [place] [place] [address] Care Team Providers Care Assistant To The President Name Role Phone Maryanne Buckley Primary Care Provider [phone] Reason for Visit * Auth/Cert (Routine) Specialty Diagnoses / Procedures Referred By Carlito wolfe Referred To Contact Diagnoses Duodenal stricture Duodenual stricture Procedures PRO BOWEL TO BOWEL ANASTOMOSIS PRO LAP, DIAGNOSTIC ABDOMEN PRO UPPER GI ENDOSCOPY, BIOPSY PRO UPPER GI ENDOSCOPY, DIAGNOSTIC PRO UP GI ENDOSCOPY, REMV TUMOR, SNARE PRO ANES, UGI ENDOSCOPY NOS @ENTEROENTEROSTOMY, ANASTOMOSIS OF INTESTINE W OR WO CUTANEOUS ENTEROSTOMY (WRVU 22.11) LAPAROSCOPY, DIAGNOSTIC, ABDOMEN (WRVU 5.14) UPPER GASTROINTESTINAL ENDOSCOPY,WITH BIOPSY SINGLE OR MULTIPLE (WRVU 2.39) Jessica Deutsch MD [facility] [place] [address] [facility] Referral ID Status Reason Start Date Expiration Date Visits Re quested Visits Authorized [id number] 1 1 Encounter Details Date Type Department Care Team (Latest Contact Info) Description 09/07/2024 9:51 AM EST - 09/08/2024 1:14 PM EST Hospital [place] [address] Jessica Deutsch MD [facility] GENERAL SURGERY [place], [place] [id number] Duodenal stricture Discharge Disposition: Home Social History Tobacco Use Types Packs/Day Years Used Date Smoking Tobacco: Never Smokeless Tobacco: Never Alcohol Use Standard Drinks/Week Comments Not Currently 0 (1 standard drink = 0.6 oz pur e alcohol) Rarely [facility] Utilities Answer Date Recorded In the past 12 months has th e electric, gas, oil, or water company threatened to shut off services in your [...] any time in the past 12 m [facility], were you homeless or living in a residential (including now)? No 09/08/2024 IPV Inpatient Questions [...] AM EDT documented as of this encounter Last Filed Vital Signs Vital Sign Reading Time Taken Comments Blood Pressure 119/71 09/08/2024 10:56 AM EST Pulse 82 09/07/2024 7:50 PM EST Temperature 36.5 ??C (97.7 ??F) 09/08/2024 10:[address] Respiratory Rate 14 09/08/2024 7:28 AM EST Oxygen Saturation 96% 09/08/2024 10:56 AM EST Inhaled Oxygen Concentration - - Weight 67.6 kg (149 lb) 09/07/2024 12:54 PM EST Height 162.6 cm (5' 4) 09/07/2024 12:54 PM EST Body Mass Index 25.58 09/07/2024 12:54 PM EST documented in this encounter Discharge Summaries * Bella Ely PA - 09/08/2024 12:34 PM EST General Surgery Discharge Summary Patient Name: Jaclyn Carver Patient Age: 53 y.o. : 1970 Attending Physician: Jessica Deutsch MD Date of Admission: 09/07/2024 Date of Discharge: 09/08/2024 Reason for admission: Post operative care following: gastrojejunostomy Primary Diagnosis: duodenal stricture Secondary Diagnosis: Patient Active Problem List Diagnosis Code NSTEMI (non-ST elevated myocardial infarction) I21.4 Duodenal stenosis K31.5 Operations and Procedures: Procedure(s): @ENTEROENTEROSTOMY, ANASTOMOSIS OF INTESTINE W OR WO CUTANEOUS ENTEROSTOMY (WRVU 22.11) LAPAROSCOPY, DIAGNOSTIC, ABDOMEN (WRVU 5.14) UPPER GASTROINTESTINAL ENDOSCOPY,WITH BIOPSY SINGLE OR MULTIPLE (WRVU 2.39) Operative Findings: 1) EGD - pinpoint stricture just distal to the duodenal bulb, with widened pylorus. Not enough space between the pylorus and stricture to create an anastomosis 2) Created a loop gastrojejunostomy (50 cm distal to the LOT) Surgeons: Surgeons and Role: * Jessica Deutsch MD - Primary * Nanette Weinstein MD - Fellow - Assisting History of Present Illness: Jaclyn Carver is a 53 y.o. female with h/o duodenal stricture, hypertension, hyperthyroidism, HLD, NSTEMI. she presents for laparoscopic bypass surgery for duodenal stricture. Hospital Course: Jaclyn Carver is a 53 y.o. female who was admitted on 09/07/2024 postoperatively after a Laparoscopic Gastrojejunostomy. Operative course was uneventful, please see operative note for further detail. Postoperative she received a clear liquid diet as well as Tylenol, Toradol, oxy codone, and IV Dilaudid for pain control. she received subcutaneous heparin for DVT prophylaxis. OnPOD#1 her diet was advanced to full liquids, which was tolerated well. she was changed to oral painmedications and IV analgesics were discontinued on POD#1. she did not have Vinson catheter and was voiding without difficulty for the duration of her admission. Prior to discharge on 09/08/24 or hospital day 1, patient's pain was well controlled with oral painmedications, she was voiding without difficulty, wounds were intact and healing appropriately, and she was tolerating a Full Liquid. Vitals were within normal limits and patient was determined medically ready for discharge to home. Vital Signs Last value Range last 24hrs Temperature Temp: 36.5 ??C (97.7 ??F) Temp: [36.3 ??C (97.3 ??F)-37.2 ??C (99 ??F)] Heart Rate Heart Rate: 82 Heart Rate: [65-83] Blood Pressure BP: 119/71 BP: (97-145)/(50-77) Respiratory Rate Resp: 14 Resp: [14-19] SpO2 SpO2: 96 % SpO2: [93 %-99 %] Pertinent Lab Data: Recent Labs 09/08/24 0102 WBC 4.19 HGB 9.9* HCT 30.3* PLATELET 196 Recent Labs 09/08/24 0102 NA 137 K 5.0 CL 105 CO2 20* BUN 13 CREATININE 0.77 GLUCOSE 145 CALCIUM 9.2 Imaging: No results found. Physical Exam: General: AOx3, pleasant, conversant, no acute distress HEENT: normocephalic, atraumatic, PERRLA, anicteric sclerae CVS: RRR on monitor Pulm: breathing comfortably on room air Abd: soft, nontender, non-distended, incisions clean/dry/intact : no vinson Skin: warm, dry Ext: well perfused, no jaundice or cyanosis, no edema Neuro: CN 2-12 grossly intact, nonfocal, moving all four extremities spontaneously Condition at discharge: Stable Mental Status: awake and alert, oriented x 3 Medications: Your Medications New Medications Dose Details omeprazole [address] capsule Commonly known as: PriLOSEC Take 1 capsule by mouth daily for 90 days. 40 mg Quantity: 30 capsule Refills: 2 prochlorperazine 5 mg tablet Commonly known as: Compazine Take 1 tablet by mouth every 6 hours as needed for Nausea. 5 mg Quantity: 15 tablet Refills: 0 Continued medications, unchanged Dose Details busPIRone 7.5 mg tablet Commonly known as: Buspar Take 1 tablet by mouth Daily at Noon. 1 tablet Refills: 0 clonazePAM 0.5 mg tablet Commonly known as: KlonoPIN Take 0.5 mg by mouth 2 times daily as needed. 0.5 mg Refills: 0 cloNIDine 0.1 mg tablet Commonly known as: Catapres Take 0.1 mg by mouth nightly. 0.1 mg Refills: 0 escitalopram 20 mg tablet Commonly known as: Lexapro Take 30 mg by mouth daily. 30 mg Refills: 0 eszopiclone 3 mg tablet Commonly known as: Lunesta Take 3 mg by mouth daily. 3 mg Refills: 0 fexofenadine 60 mg tablet Commonly known as: Lesley Take 180 mg by mouth daily. 180 mg Refills: 0 levothyroxine 100 mcg tablet Commonly known as: Synthroid Take 1 tablet by mouth Daily at Noon. 1 tablet Refills: 0 lisinopriL 5 mg tablet Commonly known as: Zestril Take 5 mg by mouth daily. 5 mg Refills: 0 ondansetron ODT 4 mg disintegrating tablet Commonly known as: Zofran-ODT Take 1 tablet by mouth every 8 hours as needed for Nausea. 1 tablet Refills: 0 simvastatin 20 mg tablet Commonly known as: Zocor Take 20 mg by mouth nightly. 20 mg Refills: 0 sucralfate 1 gram tablet Commonly known as: Carafate TAKE 1 TABLET BY MOUTH 4 TIMES DAILY (MORNING, NOON, EARLY EVENING, AND BEDTIME) Refills: 0 SUMAtriptan 100 mg tablet Commonly known as: Imitrex Take 100 mg by mouth as needed for Migraine. Initial dose: 25 mg, 50 mg, or 100 mg (take with fluids). May repeat dose after 2 hours. Max daily dose: 200 mg 100 mg Refills: 0 STOPPED Medications doxepin 10 mg capsule Commonly known as: Sinequan pantoprazole EC [address] tablet Commonly known as: Protonix Disposition: Home Allergies: Allergies Allergen Reactions Prednisone Altered mental status Outpatient Services/Studies: No discharge procedures on file. Scheduled Appointments: Future Appointments and Orders Future Appointments and Orders Future Appointments Provider Department Dept Phone 10/05/2024 11:30 AM Anthony Escalante MD [place]surgery at [facility] Arrive at: Auditing Control Clerk Area 3C [phone] 10/14/2024 11:00 AM Aracelis Roberson APRN General Surgery at [facility] Arrive at: Auditing Control Clerk Area 4L [phone] Instructions Given to Patient at Discharge: Patient Instructions Discharge Instructions - Laparoscopic Surgery New Medications: omeprazole (Prilosec) 40 mg daily, Compazine as needed for nausea, Miralax as needed for constipation Diet: Full Liquid Diet for 1 week until September 15 Foods and liquids allowed on the full liquid diet include: All foods allowed on the clear liquid diet Popsicles, clear juice without pulp, plain gelatin, ice chips, water, sweetened tea or coffee, popsicles, clear broths, carbonated beverages, flavored water and water. You may also use creamer in coffee/tea and may add in thin hot cereal (or gruel), strained cream soups, juices with pulp (including nectars), milkshakes, custard, puddings, yogurt, and liquid nutritional supplements (protein shakes, Ensure, Zwingle Instant Breakfast, etc). You can not eat solid foods when you are on a full liquid diet. Soft Food Diet for 3 weeks until October 06 This diet is soft in texture, low in fiber, and easy to digest. The goal is to decrease nausea, diarrhea, and gas in the bowel that may cause abdominal pain and discomfort. This diet is often used after abdominal surgery or as a transitional diet after gastroenteritis, diverticulitis or inflammatory bowel flares. FOOD GROUP FOODS ALLOWED FOODS TO AVOID FOR 3 WEEKS MEATS & MEAT SUBSTITUTES Chicken, turkey, fish, tender cuts of beef and pork, ground meats, eggs, creamy nut butters, tofu, skinless hot dogs, sausage patties without whole spices Tough, fibrous meats with gristle, meat with casings (hot dogs, sausage, kielbasa), lunch meats with whole spices, shellfish, beans, chunky peanut butter, nuts FRUITS AND JUICES Fruit juices without pulp, banana, avocado, applesauce, canned peaches and pears,cooked fruit without the skin/seeds Juices with pulp, fresh fruit (except banana and avocado), dried fruits, canned fruit cocktail and pineapple, coconut, frozen/thawed berries VEGETABLES Well-cooked or canned vegetables, potatoes without skin, tomato sauces, vegetable juice Raw vegetables, all corn, all mushrooms, stewed tomatoes, potato skins, stir-fischer vegetables, sauerkraut, pickles, olives, all dried beans, peas, and legumes CEREALS AND GRAINS Low- fiber dry or cooked cereals (less than 2 grams fiber per serving), white rice, pasta, macaroni, or noodles Cereals with nuts, berries, dried fruits, whole grain cereals, bran cereals, granola, brown or wild rice, whole grain pasta BREADS AND CRACKERS White/refined breads and rolls, plain bagel, toast, plain crackers, greg crackers Whole grain breads- including white whole grain; bread/ rolls with raisins, nuts or seeds, multi-grain crackers DAIRY Milk, cheese, yogurt, milkshakes, pudding, ice cream, cottage cheese, sherbet ; lactose free or low lactose versions if lactose intolerant Dairy product mixed with fresh fruit (except banana), berries, nuts or seeds DESSERTS Plain cake, pudding, custard, ice cream, sherbet, gelatin, fruit whips Any dessert that contains nuts, dried fruits, coconut, or fruits with seeds HERBS AND SPICES All ground spices or herbs, salt Whole spices such as peppercorns, whole cloves, anise seeds, celery seeds, justyn, jessa seeds, and fresh herbs SNACKS/OTHER FOODS Sugar, honey, jelly, mayonnaise, mustard, soy sauce, oil, butter, margarine, marshmallows, cookies without dried fruits or nuts, snack chips and pretzels using refined flours Carbonated beverages, jams or jellies with seeds, popcorn After 3 weeks, slowly start to reintroduce the ???Foods to Avoid?? back into your diet unless yourdoctor has told you otherwise. Try a small portion of one of these foods each day. If it does not bother you within 24 hours, it can be added to your diet. Continue to add new foods in this way. Some people may continue to have food sensitivities and may need to continue to avoid certain foods. If you cannot tolerate a food, avoid that food for a few weeks before you try it again. Guidelines when eating Avoid any food that you cannot tolerate or that causes gas, bloating, or stomach pain. Make time for your meals. Do not eat while you are in a hurry. Cut your food into small pieces. Chew each bite to a mashed potato consistency. Do not eat when you cannot concentrate on chewing well. Drink at least 6-8 cups of fluid per day. Fluids include: water, coffee, tea, juice, milk, popsicles, soups, gelatin, pudding, ice cream, sherbet, and yogurt. In addition, choose caffeine-free beverages more often, especially if you are having diarrhea or heartburn. A daily multivitamin may be recommended if diet is limited in amounts or variety of foods. Do not take any herbal supplements without first checking with your doctor. Call Doctor for: Worsening redness or drainage from incision(s) lasting longer than 5 days after your surgery Any foul-smelling drainage from the incision Pain not controlled by pain medications Persistent nausea or vomiting Any fevers greater than 101.3 F For questions or concerns during business hours please call the Surgery Clinic at [phone] before 5 PM on weekdays. For questions after hours and on weekends please call the hospital sealing and canceling machine operator at [phone] and ask for the General Surgery resident supervisor customer records division. They may not be familiar with your case so be prepared to identify yourself and the procedure you had done. Wound Care: You have liquid dressing over your incisions, there is nothing to remove. You may shower 24 hours after surgery. When you shower, let soap and water run over incisions without scrubbing. Pat dry gently. Some bruising around your incisions is normal. Using ice packs will help minimize this swelling. No swimming or soaking in water (ie. hot tubs or baths) for two weeks. Your stitches will dissolve and do not need to be removed. Activity Level: For laparoscopic surgery, there are no lifting restrictions. Lift when you feel comfortable to do so. Do not drive if you are taking narcotic pain medication. When you are no longer taking narcotic pain medication and when it no longer causes pain to get in and out of the vehicle, you may drive when comfortable. Avoiding Constipation Miralax 17g (or generic version: polyethylene glycol) mixed with a cup of water taken daily will help prevent constipation. You should start taking this even if you are not taking narcotic pain medications. Stool softeners such as Colace (docusate sodium) 100mg taken twice a day or Dulcolax (bisacodyl) 25mg daily can be used. Incorporate fiber to a goal of 25 grams daily with fruits, vegetables, or fiber supplements like Benefiber (wheat dextrin) or Metamucil. Drink a minimum of 48 oz of liquids per day to avoid straining with defecation. Pain Management Use heat or ice packs to your incisions. Take Tylenol 1000mg (two extra strength tablets) up to every 6 hours. Do NOT take more than 4000mg every day, AND Take ibuprofen 200-600mg every 6 hours with some food. Avoid taking ibuprofen on an empty stomach or for longer than 2 weeks. Your pain should slowly and steadily diminish as you heal. If your pain level at the surgery site increases, you should call us. It is normal for increased pain if you are overly active or you decrease your pain medication, but a significant and unexplained increase in pain should be discussed with your surgeon. Follow-up: Please call [phone] (clinic number for appointments) to confirm or change the date and time of your appointment. Future Appointments Date Time Provider Department Center 10/05/2024 11:30 AM Anthony Escalante MD [facility] [id number] [facility] 10/14/2024 11:00 AM Aracelis Roberson APRN [facility] SURG [facility] General Instructions None Future Appointments and Orders Future Appointments and Orders Future Appointments Provider Department Dept Phone 10/05/2024 11:30 AM Anthony Escalante MD Neurosurgery at [facility] Arrive at: Auditing Control Clerk Area [phone] 10/14/2024 11:00 AM Aracelis Roberson APRN General Surgery at [facility] Arrive at: Auditing Control Clerk Area 4L [phone] Signed: OMAR Her Minimally Invasive Surgery 12:38 PM 09/08/24 Service pager: [phone] Primary Barb Physician: OMAR Rea [address] / [place] [address] documented in this encounter Discharge Instructions * Patient Instructions* Bella Ely PA - 09/08/2024 7:47 AM EST Discharge Instructions - Laparoscopic Surgery New Medications: omeprazole (Prilosec) 40 mg daily, Compazine as needed for nausea, Miralax as needed for constipation Diet: Full Liquid Diet for 1 week until September 15 Foods and liquids allowed on the full liquid diet include: All foods allowed on the clear liquid diet Popsicles, clear juice without pulp, plain gelatin, ice chips, water, sweetened tea or coffee, popsicles, clear broths, carbonated beverages, flavored water and water. You may also use creamer in coffee/tea and may add in thin hot cereal (or gruel), strained cream soups, juices with pulp (including nectars), milkshakes, custard, puddings, yogurt, and liquid nutritional supplements (protein shakes, Ensure, Zwingle Instant Breakfast, etc). You can not eat solid foods when you are on a full liquid diet. Soft Food Diet for 3 weeks until October 06 This diet is soft in texture, low in fiber, and easy to digest. The goal is to decrease nausea, diarrhea, and gas in the bowel that may cause abdominal pain and discomfort. This diet is often used after abdominal surgery or as a transitional diet after gastroenteritis, diverticulitis or inflammatory bowel flares. FOOD GROUP FOODS ALLOWED FOODS TO AVOID FOR 3 WEEKS MEATS & MEAT SUBSTITUTES Chicken, turkey, fish, tender cuts of beef and pork, ground meats, eggs, creamy nut butters, tofu, skinless hot dogs, sausage patties without whole spices Tough, fibrous meats with gristle, meat with casings (hot dogs, sausage, kielbasa), lunch meats with whole spices, shellfish, beans, chunky peanut butter, nuts FRUITS AND JUICES Fruit juices without pulp, banana, avocado, applesauce, canned peaches and pears,cooked fruit without the skin/seeds Juices with pulp, fresh fruit (except banana and avocado), dried fruits, canned fruit cocktail and pineapple, coconut, frozen/thawed berries VEGETABLES Well-cooked or canned vegetables, potatoes without skin, tomato sauces, vegetable juice Raw vegetables, all corn, all mushrooms, stewed tomatoes, potato skins, stir-fischer vegetables, sauerkraut, pickles, olives, all dried beans, peas, and legumes CEREALS AND GRAINS Low- fiber dry or cooked cereals (less than 2 grams fiber per serving), white rice, pasta, macaroni, or noodles Cereals with nuts, berries, dried fruits, whole grain cereals, bran cereals, granola, brown or wild rice, whole grain pasta BREADS AND CRACKERS White/refined breads and rolls, plain bagel, toast, plain crackers, greg crackers Whole grain breads- including white whole grain; bread/ rolls with raisins, nuts or seeds, multi-grain crackers DAIRY Milk, cheese, yogurt, milkshakes, pudding, ice cream, cottage cheese, sherbet ; lactose free or low lactose versions if lactose intolerant Dairy product mixed with fresh fruit (except banana), berries, nuts or seeds DESSERTS Plain cake, pudding, custard, ice cream, sherbet, gelatin, fruit whips Any dessert that contains nuts, dried fruits, coconut, or fruits with seeds HERBS AND SPICES All ground spices or herbs, salt Whole spices such as peppercorns, whole cloves, anise seeds, celery seeds, justyn, jessa seeds, and fresh herbs SNACKS/OTHER FOODS Sugar, honey, jelly, mayonnaise, mustard, soy sauce, oil, butter, margarine, marshmallows, cookies without dried fruits or nuts, snack chips and pretzels using refined flours Carbonated beverages, jams or jellies with seeds, popcorn After 3 weeks, slowly start to reintroduce the ???Foods to Avoid?? back into your diet unless yourdoctor has told you otherwise. Try a small portion of one of these foods each day. If it does not bother you within 24 hours, it can be added to your diet. Continue to add new foods in this way. Some people may continue to have food sensitivities and may need to continue to avoid certain foods. If you cannot tolerate a food, avoid that food for a few weeks before you try it again. Guidelines when eating Avoid any food that you cannot tolerate or that causes gas, bloating, or stomach pain. Make time for your meals. Do not eat while you are in a hurry. Cut your food into small pieces. Chew each bite to a mashed potato consistency. Do not eat when you cannot concentrate on chewing well. Drink at least 6-8 cups of fluid per day. Fluids include: water, coffee, tea, juice, milk, popsicles, soups, gelatin, pudding, ice cream, sherbet, and yogurt. In addition, choose caffeine-free beverages more often, especially if you are having diarrhea or heartburn. A daily multivitamin may be recommended if diet is limited in amounts or variety of foods. Do not take any herbal supplements without first checking with your doctor. Call Doctor for: Worsening redness or drainage from incision(s) lasting longer than 5 days after your surgery Any foul-smelling drainage from the incision Pain not controlled by pain medications Persistent nausea or vomiting Any fevers greater than 101.3 F For questions or concerns during business hours please call the Surgery Clinic at [phone] before 5 PM on weekdays. For questions after hours and on weekends please call the hospital sealing and canceling machine operator at [phone] and ask for the General Surgery resident supervisor customer records division. They may not be familiar with your case so be prepared to identify yourself and the procedure you had done. Wound Care: You have liquid dressing over your incisions, there is nothing to remove. You may shower 24 hours after surgery. When you shower, let soap and water run over incisions without scrubbing. Pat dry gently. Some bruising around your incisions is normal. Using ice packs will help minimize this swelling. No swimming or soaking in water (ie. hot tubs or baths) for two weeks. Your stitches will dissolve and do not need to be removed. Activity Level: For laparoscopic surgery, there are no lifting restrictions. Lift when you feel comfortable to do so. Do not drive if you are taking narcotic pain medication. When you are no longer taking narcotic pain medication and when it no longer causes pain to get in and out of the vehicle, you may drive when comfortable. Avoiding Constipation Miralax 17g (or generic version: polyethylene glycol) mixed with a cup of water taken daily will help prevent constipation. You should start taking this even if you are not taking narcotic pain medications. Stool softeners such as Colace (docusate sodium) 100mg taken twice a day or Dulcolax (bisacodyl) 25mg daily can be used. Incorporate fiber to a goal of 25 grams daily with fruits, vegetables, or fiber supplements like Benefiber (wheat dextrin) or Metamucil. Drink a minimum of 48 oz of liquids per day to avoid straining with defecation. Pain Management Use heat or ice packs to your incisions. Take Tylenol 1000mg (two extra strength tablets) up to every 6 hours. Do NOT take more than 4000mg every day, AND Take ibuprofen 200-600mg every 6 hours with some food. Avoid taking ibuprofen on an empty stomach or for longer than 2 weeks. Your pain should slowly and steadily diminish as you heal. If your pain level at the surgery site increases, you should call us. It is normal for increased pain if you are overly active or you decrease your pain medication, but a significant and unexplained increase in pain should be discussed with your surgeon. Follow-up: Please call [phone] (clinic number for appointments) to confirm or change the date and time of your appointment. Future Appointments Date Time Provider Department Center 10/05/2024 11:30 AM Anthony Escalante MD [id number] 10/14/2024 11:00 AM Aracelis Roberson APRN [facility] documented in this encounter Medications at Time of Discharge Medication Sig Dispensed Refills Start Date End Date omeprazole (PriLOSEC) [address] capsule Take 1 capsule by mouth daily for 90 days. 30 capsule 2 09/08/2024 12/07/2024 prochlorperazine (Compazine) 5 mg tablet Take 1 tablet by mouth every 6 hours as needed for Nausea. 15 tablet 09/08/2024 eszopiclone (Lunesta) 3 mg tablet Take 3 mg by mouth daily. busPIRone (Buspar) 7.5 mg tablet Take 1 tablet by mouth Daily at Noon. 08/09/2024 fexofenadine (Lesley) 60 mg tablet Take 180 mg by mouth daily. cloNIDine (Catapres) 0.1 mg tablet Take 0.1 mg by mouth nightly. 07/05/2024 ondansetron ODT (Zofran-ODT) 4 mg disintegrating tablet Take 1 tablet by mouth every 8 hours as needed for Nausea. 06/30/2024 simvastatin (Zocor) 20 mg tablet Take 20 mg by mouth nightly. 04/28/2024 sucralfate (Carafate) 1 gram tablet TAKE 1 TABLET BY MOUTH 4 TIMES DAILY (MORNING, NOON, EARLY EVENING, AND BEDTIME) 06/02/2024 clonazePAM (KlonoPIN) 0.5 mg tablet Take 0.5 mg by mouth 2 times daily as needed. levothyroxine (Synthroid) 100 mcg tablet Take 1 tablet by mouth Daily at Noon. 07/07/2024 escitalopram (Lexapro) 20 mg Tablet Take 30 mg by mouth daily. SUMAtriptan (Imitrex) 100 mg Tablet Take 100 mg by mouth as needed for Migraine. Initial dose: 25 mg, 50 mg, or 100 mg (take with fluids). May repeat dose after 2 hours. Max daily dose: 200 mg lisinopriL (Prinivil;Zestril) 5 mg Tablet Take 5 mg by mouth daily. documented as of this encounter Progress Notes * Abraham Cortés MD - 09/07/2024 8:08 PM EST Surgery Post-Op Check Operation/Procedure: 09/07/2024 Surgeons and Role: * Jessica Deutsch MD - Primary * Nanette Weinstein MD - Fellow - Assisting: Procedure(s): @ENTEROENTEROSTOMY, ANASTOMOSIS OF INTESTINE W OR WO CUTANEOUS ENTEROSTOMY (WRVU 22.11) LAPAROSCOPY, DIAGNOSTIC, ABDOMEN (WRVU 5.14) UPPER GASTROINTESTINAL ENDOSCOPY,WITH BIOPSY SINGLE OR MULTIPLE (WRVU 2.39) Findings: 1) EGD - pinpoint stricture just distal to the duodenal bulb, with widened pylorus. Not enough space between the pylorus and stricture to create an anastomosis 2) Created a loop gastrojejunostomy (50 cm distal to the LOT) Jaclyn Carver is a 53 y.o. female status post loop gastrojejunostomy for duodenal stricture Subjective/Events: Patient denies nausea, vomiting, chest pain, shortness of breath, numbness/weakness. Pain adequately controlled. Offers no complaints. Ambulated to the bathroom, voided Objective: Temp: [36.4 ??C (97.5 ??F)-36.7 ??C (98.1 ??F)] Heart Rate: [65-83] Resp: [15-19] BP: (114-145)/(52-77) SpO2: [93 %-99 %] Heart Rate from SpO2: [73 bpm-83 bpm] O2 Device: None (Room air) I/O this shift: In: - Out: 300 [Urine:300] Physical Exam GEN: resting comfortably in bed, pleasant, conversant, NAD HEENT: normocephalic, atraumatic CHEST: comfortable work of breathing on room air CV: regular rate, well perfused ABD: soft, appropriately tender, non distended Incisions C/D/I with overlying dermabond. EXTR: moving all extremities spontaneously, no edema NEURO: awake and alert, grossly intact, nonfocal, follows commands Assessment and Plan: Jaclyn Carver is a 53 y.o. female status post loop gastrojejunostomy for duodenal stricture. They are currently in stable condition and recovering as expected. Hemodynamically stable UOP adequate, voided 300cc after OR Drains none Fluids: @ 75mL/hr, NS running not LR, will change out with next bag iso IV fluid shortage Pain adequately controlled Diet: Clear Liquid Abraham Cortés MD 09/07/2024 Minimally Invasive Surgery, Team Pager [phone] documented in this encounter H&P Notes * eJssica Deutsch MD - 09/07/2024 12:31 PM EST Images from the original note were not included. Day of Surgery Update Please see clinic note for further historical details, copied below. The patient's history and physical exam have been reviewed and completed. There has been no interval change from that of the pre-operative history and physical exam with RRRand CTAB. All preoperative questions were answered. Plan to proceed with laparoscopic bypass, egd. JESSICA DEUTSCH MD Jaclynfabricio Carver is a 53 y.o. female referred by Britton Granado for evaluation of a benign duodenal stricture and consideration for surgical management. She has a history of post prandial abdominal pain, bloating, nausea, vomiting and PO intolerance. She can't eat solid food, and is able to avoid symptoms somewhat by limiting her diet to liquids. Sheusing protein shakes, and her weight is stable. She was diagnosed with an ulcer in [id number], although she is unclear where this was anatomically. She also has a history of an esophageal stricture. NSAIDs: When had menstrual cycle, generally not currently, although will take a rare aleve. Thoughtcaused ulcer in the past. Nicotine: Never H. Pylori - never been diagnosed Antacids - Protonix daily helps keep acid settled Ms. Carver's workup to date includes: 04/21/24 EGD: Upper endoscopy/EUS 07/20/24: Findings: The examined esophagus was normal. Food (residue) was found in the gastric body. One nearly obstructing (greater than 90% obstructed) non-bleeding duodenal ulcer was found in the first portion of the duodenum. Biopsies were taken with a cold forceps for histology. A TTS dilator was passed through the scope. Dilation with an 8 mm balloon dilator was performed. The stricture was traversed with an ultraslim scope. The second portion of the duodenum was normal appearing. ENDOSONOGRAPHIC FINDING: : There was no sign of significant endosonographic abnormality in the pancreatic head. The pancreatic duct measured up to 2 mm in diameter. (note: due to the duodenal stenosis, the pancreatic head could not be completely examined by ultrasonography) There was no sign of significant endosonographic abnormality in the common bile duct. The maximum diameter of the duct was 5 mm. Localized wall thickening was visualized endosonographically in the apex of the duodenal bulb. The thickness of the abnormal layers. The duodenal wall measured up to 6 mm in thickness. Moderate Sedation: Not applicable - See Anesthesia documentation Impression: - Normal esophagus. - Food (residue) in the stomach. - Nearly completely obstructing peptic stricture of the first portion of the duodenum approximately 2-3 cm in length; benign appearing. Biopsied. Endosonographic examination revealed focal wall thickening, but no appreciable mass. Recommendation: - Discharge patient to home. - Pureed diet. - Use a proton pump inhibitor PO BID. - Await pathology results. - Follow up with general surgery UGI: CT A/P 03/04/24: CT A/P 02/21/24: Past Medical History: Patient Active Problem List Diagnosis Code NSTEMI (non-ST elevated myocardial infarction) I21.4 2019 before covid - been ok since. Hyperthyroid Hypertension High colesterol CPTSD Past Surgical History Past Surgical History: Procedure Laterality Date PRO ENDOSCOPIC US EXAM, ESOPH N/A 07/20/2024 UPPER EUS- ENDOSCOPIC ULTRASOUND (WRVU 3.47) performed by Wero Church MD at [facility] ENDOSCOPY PRO UPPER GI ENDOSCOPY, BIOPSY N/A 07/20/2024 EGD WITH BIOPSY (WRVU 2.39) performed by Wero Church MD at [facility] ENDOSCOPY PRO UPPER GI ENDOSCOPY, W/DILAT, GASTRIC OUT N/A 07/20/2024 EGD,WITH DILATION GASTRIC/DUODENAL STRICTURES (WRVU 3.08) [facility] Medications: Current Medications Current Outpatient Medications: eszopiclone (Lunesta) 3 mg tablet, Take 3 mg by mouth daily., Disp: , Rfl: busPIRone (Buspar) 7.5 mg tablet, Take 1 tablet by mouth Daily at Noon., Disp: , Rfl: fexofenadine (Lesley) 60 mg tablet, Take 180 mg by mouth daily., Disp: , Rfl: cloNIDine (Catapres) 0.1 mg tablet, Take 0.1 mg by mouth nightly., Disp: , Rfl: doxepin (Sinequan) 10 mg capsule, take 1 capsule by mouth once daily at bedtime, Disp: , Rfl: ondansetron ODT (Zofran-ODT) 4 mg disintegrating tablet, Take 1 tablet by mouth every 8 hours as needed for Nausea., Disp: , Rfl: pantoprazole EC (Protonix) [address] tablet, 40 mg., Disp: , Rfl: simvastatin (Zocor) 20 mg tablet, Take 20 mg by mouth nightly., Disp: , Rfl: sucralfate (Carafate) 1 gram tablet, TAKE 1 TABLET BY MOUTH 4 TIMES DAILY (MORNING, NOON, EARLY EVENING, AND BEDTIME), Disp: , Rfl: clonazePAM (KlonoPIN) 0.5 mg tablet, Take 0.5 mg by mouth 2 times daily as needed., Disp: , Rfl: levothyroxine (Synthroid) 100 mcg tablet, Take 1 tablet by mouth Daily at Noon., Disp: , Rfl: escitalopram (Lexapro) 20 mg Tablet, Take 30 mg by mouth daily., Disp: , Rfl: SUMAtriptan (Imitrex) 100 mg Tablet, Take 100 mg by mouth as needed for Migraine. Initial dose: 25 mg, 50 mg, or 100 mg (take with fluids). May repeat dose after 2 hours. Max daily dose: 200 mg, Disp: , Rfl: lisinopriL (Prinivil;Zestril) 5 mg Tablet, Take 5 mg by mouth daily., Disp: , Rfl: aspirin EC 81 mg Tablet, Delayed Release (E.C.), Take 1 tablet by mouth daily., Disp: 30 tablet, Rfl: 3 atorvastatin (Lipitor) 40 mg Tablet, Take 1 tablet by mouth every evening., Disp: 90 tablet, Rfl: 3 clonazePAM (KlonoPIN) 0.25 mg Tablet, Rapid Dissolve, Take 0.25 mg by mouth 2 times daily as needed., Disp: , Rfl: omeprazole (PriLOSEC) 20 mg Capsule, Delayed Release(E.C.), Take 20 mg by mouth daily., Disp: , Rfl: levothyroxine (Synthroid) 75 mcg Tablet, Take 75 mcg by mouth daily., Disp: , Rfl: cholecalciferol, Vitamin D3, (Vitamin D3) 400 unit Tablet, Take 400 Units by mouth daily., Disp: , Rfl: cetirizine (ZyrTEC) 10 mg Tablet, Take 10 mg by mouth daily., Disp: , Rfl: Not taking carafate Allergies: Prednisone --> hallucinations Family History: Family History Family History Problem Relation Age of Onset Coronary Artery Disease Father [place] at the age of 42 Coronary Artery Disease Paternal Grandmother Coronary Artery Disease Paternal Grandfather Social History: reports that she has never smoked. She has never used smokeless tobacco. She reports that she does not currently use alcohol. She reports current drug use. Drug: Benzodiazapines . ROS: No CP, SOB, bleeding/clotting issues, issues with anesthesia Patient Vitals for the past 24 hrs: Temp Pulse Resp BP SpO2 08/16/24 1144 37.5 ??C (99.5 ??F) 80 16 152/80 100 % Body mass index is 26.13 kg/m??. On physical examination, this is a well appearing female. There is no scleral or skin icterus. Mucous membranes are moist and her pupils reactive. Her lungs are clear to auscultation. Heart is regular, rate, and rhythm and without murmurs. Her abdomen is mildly tender in the epigastrium. Her extremity and neurological exam are grossly normal. Impression. Benign duodenal stricture, not amenable to endoscopic management per advanced GI. Discussed management options including continued dietary/non operative management, and laparoscopicbypass of the stricture. Ideally would could bring up a loop of jejunum to anastomose to the duodenal bulb, as it appears quite dilated on UGI. Alternatively, we could anastomose jejunum to the stomach, if there not enough room to do so safely distal to the pylorus. I would not plan to resect the stricture given the location relative to the ampulla/CBD. We discussed performing intraoperative endoscopy to finalize the surgical plan based on the actual location of the stricture. We discussed risks of bleeding, infection, damage to bowel/portal triad/surrounding structures, ulcers/bile reflux. All questions answered. She would like to proceed. documented in this encounter Miscellaneous Notes * Plan of Care - Clementine Grady RN - 09/08/2024 10:14 AM EST Assumed care of patient. VSS on RA. OOB w/o assist, gait steady. Pt reports adeq pain control with scheduled and PRN meds per emar. Surgical site intact RAINE. Pt tolerated full liq diet for breakfast w/o nausea or increased pain. Pt anticipates dc home this afternoon. 1313: Pt dc'd home with at this time. Both verbalized u/s of dc instructions - when to seekmedical advice, medication regimen, diet adjustments, follow up appts, and surgical site care. Downto exit via WC. Problem: Bleeding (Surgery Nonspecified) Goal: Absence of Bleeding Outcome: Ongoing (Interventions Implemented as Appropriate) Problem: Bowel Motility Impaired (Surgery Nonspecified) Goal: Effective Bowel Elimination Outcome: Ongoing (Interventions Implemented as Appropriate) Problem: Infection (Surgery Nonspecified) Goal: Absence of Infection Signs and Symptoms Outcome: Ongoing (Interventions Implemented as Appropriate) Problem: Ongoing Anesthesia Effects (Surgery Nonspecified) Goal: Anesthesia/Sedation Recovery Outcome: Ongoing (Interventions Implemented as Appropriate) Problem: Pain (Surgery Nonspecified) Goal: Acceptable Pain Control Outcome: Ongoing (Interventions Implemented as Appropriate) Problem: Postoperative Nausea and Vomiting (Surgery Nonspecified) Goal: Nausea and Vomiting Relief Outcome: Ongoing (Interventions Implemented as Appropriate) Problem: Postoperative Urinary Retention (Surgery Nonspecified) Goal: Effective Urinary Elimination Outcome: Ongoing (Interventions Implemented as Appropriate) Problem: Pain Acute Goal: Acceptable Pain Control and Functional Ability Outcome: Ongoing (Interventions Implemented as Appropriate) Problem: Adult Inpatient Plan of Care Goal: Plan of Care Review Outcome: Ongoing (Interventions Implemented as Appropriate) Goal: Patient-Specific Goal (Individualized) Outcome: Ongoing (Interventions Implemented as Appropriate) Goal: Absence of Hospital-Acquired Illness or Injury Outcome: Ongoing (Interventions Implemented as Appropriate) Goal: Optimal Comfort and Wellbeing Outcome: Ongoing (Interventions Implemented as Appropriate) Goal: Readiness for Transition of Care Outcome: Ongoing (Interventions Implemented as Appropriate) Problem: Infection Goal: Absence of Infection Signs and Symptoms Outcome: Ongoing (Interventions Implemented as Appropriate) * Initial Assessments - Maria Eugenia Dick RN - 09/08/2024 8:15 AM EST Office of Care Management Initial Assessment Maria Eugenia Dick RN reviewed record and discussed patient with Care Team. Source of Information: Team, bedside nurse, medical record, and Introduced self/reviewed role; services accepted. Admitted From: Home Reason for Hospitalization: status post loop gastrojejunostomy for duodenal stricture. Past medical History: Past Medical History: Diagnosis Date Anemia Anxiety Depressive disorder GERD (gastroesophageal reflux disease) GI bleed HTN (hypertension) Hypothyroidism Migraine Hospitalizations Within the Past 30 Days: no previous admission in last 30 days Current Decision-Making Capacity: Self If AD's have not been completed the following surrogate would be surrogate decision maker per [place] decision making law. (Only good for 180 days) Any patient receiving care in [place] must abide by [place] law. The hierarchy for surrogate decision making is: (a) Patient???s spouse or civil union partner unless there is a divorce proceeding, separation agreement, or restraining order limiting that person???s relationship with the patient. Zahira Stringer [phone] (b) Any adult son or daughter of the patient. (c) Either parent of the patient. (d) Any adult brother or sister of the patient. (e) Any adult grandchild of the patient. (f) Any grandparent of the patient. (g) Any adult aunt, uncle, niece, or nephew of the patient. (h) A close friend of the patient. (i) The agent with financial power of retail manager in training or a conservator appointed in accordance with RSA 464-A. (j) The guardian of the patient???s estate. Advance Care Planning: Attempt Cardiopulmonary Resuscitation - Inpatient <no information> -Advanced Directive: No, need to discuss (patient would like to discuss Advance Directives during this hospitalization, RS notified) Current Coping/Education/Information Needs: coping with hospital stay Current Functional Ability: Assistive Person Functional Status Prior to Admission: Independent Prior ADLs & IADLs: Independent with all ADLs & IADLs Home Environment: Others in the home: significant other. Current Living Arrangements: home/apartment/condo. Accessibility Concerns:2 level house, 1 PETRA. In the last 12 months, was there a time when you were not able to pay the mortgage or rent on time?: No In the past 12 months, how many times have you moved where you were living?: 0 At any time in the past 12 months, were you homeless or living in a residential (including now)?: No In the past 12 months has the electric, gas, oil, or water company threatened to shut off services in your home?: No Within the past 12 months, you worried that your food would run out before you got the money to buymore.: Never true Within the past 12 months, the food you bought just didn't last and you didn't have money to get more.: Never true Resource / Environmental Concerns: Resource/Environmental Concerns: none In the past 12 months, has lack of transportation kept you from medical appointments or from getting medications?: No In the past 12 months, has lack of transportation kept you from meetings, work, or from getting things needed for daily living?: No Current DME: none Home Address confirmed as: [address] [id number] [place] [address] Social & Family Supports: All names listed below confirmed with patient as current and correct Extended Emergency Contact Information Primary Emergency Contact: ZAHIRA STRINGER Address: [address] [address] [facility] Mobile Relation: Civil Union Partner Secondary Emergency Contact: Adams Carver [facility] Relation: Child Current Care Provided by: self Provides Primary Care For: no one Caregiver if needed: significant other Quality of Family relationships: supportive, helpful, involved Community Resources being provided currently: none Behavioral Health History: none reported Substance Use/Abuse confirmed: Social History Tobacco Use Smoking Status Never Smokeless Tobacco Never 0 No problems reported 1-2 Low level 3-5 Moderate level 6-8 Substantial level 9- 10 Severe level 0 to 7 points: Low risk 8 to 15 points: Medium risk 16 to 19 points: High risk 20 to 40 points: Addiction likely Other Pertinent/Service Specific Information: Health/Prescription Coverage: Primary Insurance: [employer] [place] Payor: [facility] [place] / Plan[place] / Product Type: *No Product type* / Secondary Insurance: N/A ; Prescription Coverage: Yes Preferred Pharmacy: [facility] [place] [address] [facility] [address] [address] Status: Patient is a : No Primary Care Provider confirmed: OMAR Rea [phone] Patient/Caregiver Goals of Treatment: recovery post surgery Potential Needs for Transition of Care: none Agency Referrals: Not Applicable Transportation: no concerns Transportation Anticipated: family or friend will provide Concerns to be Addressed: no discharge needs identified Assessment: Patient is admitted to [facility] service s/p status post loop gastrojejunostomy for duodenal stricture. Plan going forward: pain control, mobilize, advance diet as tolerated. No housing, transportation, insurance, resources concerns identified at this time. No identified barriers to accessing necessary care and/or follow-up after discharge. Plan: Monitor pt progress Review recommendations from other providers Make referrals as needed Monitor for O2 needs Monitor for DME needs. Care Management team will continue to follow and assist with discharge planing and coordination of care as indicated. Maria Eugenia Dick, RN, MSN, [facility] Surgery Nurse Ply Cutter [phone] , Pager [phone] * Op Note - Jessica Deutsch MD - 09/07/2024 2:22 PM EST [facility] Operative Note Patient Name: Jaclyn Carver : [id number] MR#: [id number] Case Date: 09/07/2024 Surgeon: Surgeons and Role: * Jessica Deutsch MD - Primary * Nanette Weinstein MD - Fellow - Assisting Preoperative diagnosis: Duodenual stricture Postoperative diagnosis: Duodenual stricture Procedure(s) (LRB): @ENTEROENTEROSTOMY, ANASTOMOSIS OF INTESTINE W OR WO CUTANEOUS ENTEROSTOMY (WRVU 22.11) (N/A) LAPAROSCOPY, DIAGNOSTIC, ABDOMEN (WRVU 5.14) (N/A) UPPER GASTROINTESTINAL ENDOSCOPY,WITH BIOPSY SINGLE OR MULTIPLE (WRVU 2.39) (N/A) Findings: 1) EGD - pinpoint stricture just distal to the duodenal bulb, with widened pylorus. Not enough space between the pylorus and stricture to create an anastomosis 2) Created a loop gastrojejunostomy (50 cm distal to the LOT) Anesthesia: General Estimated Blood Loss: 11 cc Specimens removed during surgery: None Drains: None Surgical Closure: Primary Closure - skin incision is completely closed without any wires, arthur, drains or other devices Disposition: awakened from anesthesia, extubated and taken to the recovery room in a stable condition, having suffered no apparent untoward event. Condition: doing well without problems (Please see the Surgical Encounter Summary for any Implant and Specimen details pertinent to this patient.) HPI/Indications for procedure: This 53 y.o. female presented with PO intolerance and workup revealed a duodenal stricture not amenable to dilation. She presented for surgical management. Description of procedure: The patient was brought back to the operating room and placed in supine position. IV antibiotics were infused and pneumoboots were placed. She received heparin in the preop holding area. Under general anesthesia and endotracheal intubation, the patient was prepped and draped in the supine position.After injection with 0.25% marcaine, a small stab incision was made at Ackerman's point. A veress needle was placed with location confirmed by saline drop test and opening pressure. Insufflation was obtained to 15 mm hg without issue. An incision was made approximately 15 cm below the xiphoid from the left of midline. The abdomen was then entered using the optiview trocar system using an 11-mm port. There was no evidence of injury with abdominal wall injury and the Veress was removed. A 45-degree telescope was inserted, and under direct vision, two 5-mm ports were placed in the left upper quadrant forming the first arm of a V with the scope at the apex. A 5-mm port was placed approximately 15-cm along the right costal margin, through which a liver retractor was placed and used to elevate the liver. This was fixed in good position using the mechanical arm. A 5-mm port was placed approximately 10 cm along the right costal margin and a 12- mm port was placed approximately 4 cm below this. Bilateral laparoscopic TAP blocks were placed using 20 cc of 0.25% Marcaine on each side. Initially we used a harmonic scalpel to take down adhesions between the duodenum and liver (s/p cholecystectomy). We then introduced the endoscope to localize the duodenal stricture. There was a tight benign appearing stricture just distal to the duodenal bulb. The pylorus was dilated. After this inspection, I did not feel that I could create an anastomosis of sufficient length between the stricture and the pylorus. We then proceeded with the backup plan of creating a loop gastrojejunostomy. The omentum and transverse colon reflected cephalad. The omentum was split using a harmonic scalpel. The ligament of Treitz was identified and dissection was carried along approximately 50 cm from the ligament of Treitz. This loop was brought cephalad and oriented so that the BP limb was lateral. Stay sutures of 2-0 surgilon were placed between the jejunum and greater curvature of the the stomach. Enterotomies were made in both and a single firing of a 60 mm EndoGIA rod load was used to create anastomosis. The resultant defect was sewn in two layers of running 3-0 v loc suture. Diaz's defect below the transverse colon was also closed with a running 3-0 vloc. Inspection ofthe abdomen revealed excellent hemostasis. The endoscope was then reintroduced and the anastomosis was inspected. This showed no evidence of bleeding. All ports were then removed under direct vision. The 11 and 12 mm ports were closed with an interrupted 0 vicryl. The skin was closed with running subcuticular 4-0 Monocryl suture, followed by skin glue. The patient returned to the Recovery Room in stable conditions. Sponge, instrument and needle counts were correct. I was the attending physician and I was present and scrubbed throughout the procedure. No qualifiedresident was available. Surgical Infection Prevention Bundle Used? N/A documented in this encounter Plan of Treatment Not on file documented as of this encounter Procedures Procedure Name Priority Date/Time Associated Diagnosis Comments CBC (WITH DIFF) Routine 09/08/2024 1:02 AM EST BASIC METABOLIC PANEL Routine 09/08/2024 1:02 AM EST Upper Gi Endoscopy, Biopsy ([id number]) 09/07/2024 1:53 PM EST Duodenal stricture Lap, Diagnostic Abdomen ([id number]) 09/07/2024 1:53 PM EST Duodenal stricture Bowel To Bowel Anastomosis ([id number]) 09/07/2024 1:53 PM EST Duodenal stricture LAPAROSCOPY, DIAGNOSTIC Routine 09/07/20 12:36 PM EST Duodenal stricture ENTEROENTEROSTOMY ANASTOMOSIS OF INTESTINE W OR WO CUTAN ENTEROSTOMY Routine 09/07/2024 12:36 PM EST Duodenal stricture UPPER GASTROINTESTINAL ENDOSCOPY,WITH BIOPSY SINGLE OR MULTIPLE Routine 09/07/2024 12:36 PM EST Duodenal stricture documented in this encounter Results * (ABNORMAL) Basic Metabolic Panel (09/08/2024 1:02 AM EST) Glucose 145 65 - 199 mg/dL 09/08/2024 1:48 AM [facility] Comment:Glucose Concentratio n >=200 mg/dL plus symptoms is consistent with Diabetes Mellitus. Blood Urea Nitrogen 13 8 - 18 mg/dL 09/08/2024 1:48 AM [facility] Creatinine 0.77 0.70 - 1.20 mg/dL 09/08/2024 1:48 AM [facility] Sodium 137 135 - 145 mMol/L 09/08/2024 1:48 AM [facility] Potassium 5.0 3.5 - 5.0 mMol/L 09/08/2024 1:48 AM [facility] Chloride 105 98 - 107 mMol/L 09/08/2024 1:48 AM [facility] Carbon Dioxide 20(L) 22 - 31 mMol/L 09/08/2024 1:48 AM [facility] Anion Gap 12 5 - 15 mMol/L 09/08/2024 1:48 AM [facility] Calcium 9.2 8.5 - 10.5 mg/dL 09/08/2024 1:48 AM [facility] Est Glomerular Filtration Rate - Female 92 mL/min/1. 73 m?? 09/08/2024 1:48 AM [facility] Comment: This patient's estimated GFR was calculated using the 2020 CKD-EPI equation. The estimated GFR can vary from the measured GFR by up to 30% in the absence of rapidly changing kidney function. Assessment of the estimated GFR is not appropriate when creatinine concentrations are rapidly changing. For clinical situations in which a more precise estimate of GFR is necessary, consider alternative methods of GFR estimation such as a 24-hour urine creatinine clearance. Assignment of CKD stage 1 - 5 for patients with an eGFR near the transition point between stages may be based on clinical assessment of muscle mass and symptoms in addition to eGFR. Link: eGFR Calculator [employer] Blood VENOUS BLOOD SPECIMEN / Unknown Venipuncture / Unknown 09/08/2024 1:02 AM EST 09/08/2024 1:17 AM EST Jessica Deutsch MD CHEMISTRY ORDERABLE S [facility] [place] [address] * (ABNORMAL) CBC (with Diff) (09/08/2024 1:02 AM EST) White Blood Cell 4.19 4.00 - 9.50 x10(3)/mc L 09/08/2024 1:23 AM EST [facility] Red Blood Cell 3.31(L) 4.00 - 5.21 x10(6)/mc L 09/08/2024 1:23 AM EST [facility] Hemoglobin 9.9(L) 11.7 - 15.5 g/dL 09/08/2024 1:23 AM EST [facility] Hematocrit 30.3(L) 35.7 - 45.8 % 09/08/2024 1:23 AM EST [facility] Mean Cell Volume 91.5 82.6 - 94.4 fL 09/08/2024 1:23 AM EST [facility] Mean Cell Hemoglobin 29.9 27.1 - 32.0 pg 09/08/2024 1:23 AM EST [facility] Mean Cell Hemoglobin Concentration 32.7 31.7 - 35.0 g/dL 09/08/2024 1:23 AM EST [facility] Platelet 196 145 - 357 x10(3)/mc L 09/08/2024 1:23 AM [facility] Mean Platelet Volume 9.8 7.6 - 12.9 fL 09/08/2024 1:23 AM [facility] RDW Standard Deviation 41.9 37.0 - 46.0 fL 09/08/2024 1:23 AM [facility] RDW coefficient of variation 12.5 11.5 - 14.1 % 09/08/2024 1:23 AM [facility] NRBC% auto 0.0 % 09/08/2024 1:23 AM [facility] NRBC Absolute <0.01 <0.01 x10(3)/mc L 09/08/2024 1:23 AM [facility] Neutrophil % 91.2 % 09/08/2024 1:23 AM [facility] Neutrophil Absolute (ANC) - Automated 3.82 1.70 - 6.10 x10(3)/mc L 09/08/2024 1:23 AM [facility] Lymph % 7.6 % 09/08/2024 1:23 AM [facility] Lymph Absolute 0.32(L) 0.90 - 3.20 x10(3)/mc L 09/08/2024 1:23 AM [facility] Monocyte % 1.0 % 09/08/2024 1:23 AM [facility] Monocyte Absolute 0.04(L) 0.30 - 0.90 x10(3)/mc L 09/08/2024 1:23 AM [facility] Eos % 0.0 % 09/08/2024 1:23 AM [facility] Eos Absolute <0.04 0.00 - 0.40 x10(3)/mc L 09/08/2024 1:23 AM [facility] Basophil % 0.0 % 09/08/2024 1:23 AM [facility] Baso Absolute <0.04 0.00 - 0.10 x10(3)/mc L 09/08/2024 1:23 AM EST [facility] Immature Gran % 0.2 % 1:23 AM EST [facility] Immature Gran Absolute <0.04 0.00 - 0.04 x10(3)/mc L 09/08/2024 1:23 AM EST [facility] Blood VENOUS BLOOD SPECIMEN / Unknown Venipuncture / Unknown 09/08/2024 1:02 AM EST 09/08/2024 1:17 AM EST Jessica Deutsch MD HEMATOLOGY ORDERABL ES [facility] [place] [address] documented in this encounter Visit Diagnoses Diagnosis Duodenal stenosis- Primary Other obstruction of duodenum Duodenal stricture Other obstruction of duodenum documented in this encounter Admitting Diagnoses Diagnosis Duodenal stenosis Other obstruction of duodenum documented in this encounter Administered Medications Inactive Administered Medications - up to 3 most recent administrations Medication Order MAR Action Action Date Dose Rate Site acetaminophen (Tylenol) tablet 975 mg 975 mg (rounded from 1,000 mg), Oral, ONCE, 1 dose, On Fri09/07/24 at 0630 Given 09/07/2024 1:02 PM EST 975 mg acetaminophen (Tylenol) tablet 975 mg 975 mg, Oral, EVERY 6 HOURS SCHEDULED, First dose on Fri09/07/24 at 1800, Until Discontinued, - Maximum dose of acetaminophen is 4,000 mg from all sources in 24 hours. - Unless otherwise specified, when ordered PRN for pain, acetaminophen should be given first if other PRN pain medications are ordered., Routine Given 09/08/2024 11:03 AM EST 975 mg Given 09/08/2024 6:00 AM EST 975 mg Given 09/08/2024 1:02 AM EST 975 mg aprepitant (Emend) capsule 40 mg 40 mg, Oral, ONCE, 1 dose, On Fri09/07/24 at 0000, Routine Given 09/07/2024 1:02 PM EST 40 mg cloNIDine (Catapres) tablet 0.1 mg 0.1 mg, Oral, NIGHTLY, First dose on Fri09/07/24 at 2100, Until Discontinued, Routine Given 09/07/2024 9:56 PM EST 0.1 mg docusate sodium (Colace) capsule 100 mg 100 mg, Oral, 2 TIMES DAILY, First dose on Fri09/08/24 at 0900, Until Discontinued, Routine Given 09/08/2024 8:32 AM EST 100 mg escitalopram (Lexapro) tablet 30 mg 30 mg, Oral, DAILY, First dose on Fri09/08/24 at 0900, Until Discontinued, Routine Given 09/08/2024 8:32 AM EST 30 mg heparin (porcine) (5,000 units/1 mL) subcutaneous injection 5,000 Units 5,000 Units, Subcutaneous, ONCE, 1 dose, On Fri09/07/24 at 1300, Day of Surgery (Day of Procedure), Routine Given 09/07/2024 1:04 PM EST 5,000 Units heparin (porcine) (5,000 units/1 mL) subcutaneous injection 5,000 Units 5,000 Units, Subcutaneous, EVERY 8 HOURS SCHEDULED, First dose on Fri09/07/24 at 2200, Until Discontinued, Routine Given 09/07/2024 9:56 PM EST 5,000 Unit s HYDROmorphone (Dilaudid) (0.2 mg/1 mL) injection syringe 0.4 mg 0.4 mg, Intravenous, EVERY 10 MIN PRN, Starting on Fri09/07/24 at 1620, Until Fri09/07/24 at 1820, Pain, For Moderate to Severe Pain (6-10 out of 10), Hold for respiratory rate less than 10 per minute. Maximum dose 3 mg over one hour including administrations in the OR. If multiple pain medications are ordered, start with HYDROmorphone or morphine and use fentaNYL for breakthrough pain., PACU Recovery, Routine Given 09/07/2024 5:53 PM EST 0.4 mg Given 09/07/2024 5:36 PM EST 0.4 mg Given 09/07/2024 4:59 PM EST 0.4 mg ketorolac (Toradol) (15 mg/mL) injection 15 mg 15 mg, Intravenous, EVERY 6 HOURS PRN, Starting on Fri09/08/24 at 0833, Until Fri09/08/24 at 1514, Pain, Routine Given 09/08/2024 8:41 AM EST 15 mg ondansetron (pf) (Zofran) (2 mg/mL) injection 4 mg 4 mg, Intravenous, EVERY 8 HOURS PRN, Starting on Fri09/07/24 at 1857, Until Fri09/08/24 at 1514, Nausea, If multiple antiemetics are ordered, use ondansetron first, prochlorperazine second, and metoclopramide third. PO Preferred. If patient unable to take PO, may give IV if ordered. May repeat times one in 30 minutes if ineffective. Maximum daily dose = 24 mg/24 hours Given 09/08/2024 11:17 AM EST 4 mg Given 09/08/2024 1:02 AM EST 4 mg ondansetron (Zofran) tablet 4 mg 4 mg, Oral, EVERY 8 HOURS PRN, Starting on Fri09/07/24 at 1857, Until Fri09/08/24 at 1514, Nausea, Vomiting, If multiple antiemetics are ordered, use ondansetron first, prochlorperazine second, and metoclopramide third. PO Preferred. If patient unable to take PO, may give IV if ordered. May repeat times one in 45 minutes if ineffective. Maximum daily dose = 24 mg/24 hours, Routine oxyCODONE (Roxicodone) tablet 5 mg 5 mg, Oral, EVERY 6 HOURS PRN, Starting on Fri09/07/24 at 1734, Until Fri09/08/24 at 0837, Pain, for pain not relieved by tylenol, For pain not relieved by ibuprofen or acetaminophen - if ordered., Routine Given 09/07/2024 10:17 PM EST 5 mg Given 09/07/2024 5:39 PM EST 5 mg pantoprazole (Protonix) injection 40 mg 40 mg, Intravenous, DAILY, First dose on Fri09/07/24 at 1915, Until Discontinued, Reconstitute with 10 mL of normal saline to a concentration of 4 mg/mL and inject slowly over 2 minutes. Reconstitute with 10 mL of normal saline to a concentration of 4 mg/mL and inject slowly over 2 minutes., Routine pantoprazole EC (Protonix) tablet 40 mg 40 mg, Oral, DAILY, First dose on Fri09/07/24 at 1915, Until Discontinued, DO NOT CRUSH OR OPEN If unable to take PO, may give IV, Routine Given 09/08/2024 8:32 AM EST 40 mg sodium chloride 0.9 % (flush) (BD PosiFlush Normal Saline 0.9) flush 5 mL 5 mL, Intravenous, 2 TIMES DAILY, First dose on Fri09/07/24 at 2100, Until Discontinued, Recovery (Recovery-Hospital Unit), Routine Given 09/08/2024 8:32 AM EST 5 mLs Given 09/07/2024 9:57 PM EST 5 mLs sodium chloride 0.9% infusion 1,000 mL, at 100 mL/hr, Intravenous, CONTINUOUS, Starting on Fri09/07/24 at 1300, Until Fri09/07/24 at 1820, Day of Surgery (Day of Procedure) New Bag 09/07/2024 5:26 PM EST 1,000 mLs 100 mL/hr documented in this encounter Active and Recently Administered Medications Times are shown in EST. Scheduled Medication Order 09/06/2024 09/07/2024 09/08/2024 acetaminophen (Tylenol) tablet 975 mg (COMPLETED) 975 mg (rounded from 1,000 mg), Oral, ONCE, 1 dose, On Fri09/07/24 at 0630 1302 (Given - Provider: Rosibel Conley RN) acetaminophen (Tylenol) tablet 975 mg 975 mg, Oral, EVERY 6 HOURS SCHEDULED, First dose on Fri09/07/24 at 1800, Until Discontinued, - Maximum dose of acetaminophen is 4,000 mg from all sources in 24 hours. - Unless otherwise specified, when ordered PRN for pain, acetaminophen should be given first if other PRN pain medications are ordered., Routine 1927 (Given - Provider: Alma Rosa Wills RN) 0102 (Given - Provider: Jude Mims, CHA)0600 (Given - Provider: Jude Mims RN)1103 (Given - Provider: Clementine Grady RN) aprepitant (Emend) capsule 40 mg (COMPLETED) 40 mg, Oral, ONCE, 1 dose, On Fri09/07/24 at 0000, Routine 1302 (Given - Provider: Rosibel ConleyCHA) busPIRone (Buspar) tablet 7.5 mg 7.5 mg, Oral, DAILY AT NOON, First dose on Fri09/08/24 at 1200, Until Discontinued, Routine 1200 (Not Given - Provider: Clementine Grady RN - Reason: Medication not available - Comment: pt will take at home today) ceFAZolin (Ancef) 2 g vial attach to sodium chloride 0.9% 100 mL Mini-Bag Plus (COMPLETED) 2 g, Intravenous, EVERY 4 HOURS, 1 dose, First dose on Fri09/07/24 at 1300, Administer over 30 Minutes, Intra-Operative (Intra-Procedure), Indication for (Active or Suspected): Prophylaxis 1413 (New Bag - Provider: Jeremiah Smith MD) cloNIDine (Catapres) tablet 0.1 mg 0.1 mg, Oral, NIGHTLY, First dose on Fri09/07/24 at 2100, Until Discontinued, Routine 215 (Given - Provider: Jude Mims RN) docusate sodium (Colace) capsule 100 mg 100 mg, Oral, 2 TIMES DAILY, First dose on Fri09/08/24 at 0900, Until Discontinued, Routine 0832 (Given - Provid er: Clementine Grady RN) escitalopram (Lexapro) tablet 30 mg 30 mg, Oral, DAILY, First dose on Fri09/08/24 at 0900, Until Discontinued, Routine 0832 (Given - Provid er: Clementine Grady RN) heparin (porcine) (5,000 units/1 mL) subcutaneous injection 5,000 Units (COMPLETED) 5,000 Units, Subcutaneous, ONCE, 1 dose, On Fri09/07/24 at 1300, Day of Surgery (Day of Procedure), Routine 1304 (Given - Provider: Rosibel Conley RN) heparin (porcine) (5,000 units/1 mL) subcutaneous injection 5,000 Units 5,000 Units, Subcutaneous, EVERY 8 HOURS SCHEDULED, First dose on Fri09/07/24 at 2200, Until Discontinued, Routine 2156 (Given - Provider: Jude Mims RN) 0600 (Not Given - Provider: Jude Mims RN - Reason: Patient/family refused) levothyroxine (Synthroid) tablet 100 mcg 100 mcg, Oral, DAILY AT NOON, First dose on Fri09/08/24 at 1200, Until Discontinued, Routine 1200 (Not Given - Provider: Clementine Grady, CHA - Reason: Medication not available - Comment: pt will take at home today) pantoprazole (Protonix) injection 40 mg(Linked Group 1) 40 mg, Intravenous, DAILY, First dose on Fri09/07/24 at 1915, Until Discontinued, Reconstitute with 10 mL of normal saline to a concentration of 4 mg/mL and inject slowly over 2 minutes. Reconstitute with 10 mL of normal saline to a concentration of 4 mg/mL and inject slowly over 2 minutes., Routine 191 (See Alternative - Provider: Alma Rosa Wills RN) 0832 (See Alternative - Provider: Clementine Grady RN) pantoprazole EC (Protonix) tablet 40 mg(Linked Group 1) 40 mg, Oral, DAILY, First dose on Fri09/07/24 at 1915, Until Discontinued, DO NOT CRUSH OR OPEN If unable to take PO, may give IV, Routine 1914 (Not Given - Provider: Alma Rosa Wills RN - Reason: See comment - Comment: Took this morning) 0832 (Given - Provider: Clementine Grady RN) sodium chloride 0.9 % (flush) (BD PosiFlush Normal Saline 0.9) flush 5 mL 5 mL, Intravenous, 2 TIMES DAILY, First dose on Fri09/07/24 at 2100, Until Discontinued, Recovery (Recovery-Hospital Unit), Routine 2156 (Given - Provider: Jude Mims RN) 0832 (Given - Provider: Clementine Grady, CHA) Continuous Medication Order 09/06/2024 09/07/2024 09/08/2024 lactated ringers infusion 75 mL/hr, Intravenous, CONTINUOUS, Starting on Fri09/07/24 at 1630, Until Fri09/08/24 at 1514, Recovery (Recovery-Hospital Unit) 1630 (Not Given - Provider: Jude Mims RN - Reason: See comment - Comment: Patient already running, ok per provider to run N/S due to shortage) sodium chloride 0.9% infusion (CANCELED) 1,000 mL, at 100 mL/hr, Intravenous, CONTINUOUS, Starting on Fri09/07/24 at 1300, Until Fri09/07/24 at 1820, Day of Surgery (Day of Procedure) 1726 (New Bag - Provider: Alma Rosa Wills RN) PRN Medication Order 09/06/2024 09/07/2024 09/08/2024 BUPivacaine (pf) (Marcaine) (2.5 mg/mL) 0.25% injection (CANCELED) PRN, Starting on Fri09/07/24 at 1500, Until Fri09/08/24 at 1514, Intra-Operative (Intra-Procedure), Routine 1500 (Given - Provider: Jessica Deutsch MD - Comment: block) HYDROmorphone (Dilaudid) (0.2 mg/1 mL) injection syringe 0.4 mg (CANCELED)(Linked Group 2) 0.4 mg, Intravenous, EVERY 10 MIN PRN, Starting on Fri09/07/24 at 1620, Until Fri09/07/24 at 1820, Pain, For Moderate to Severe Pain (6-10 out of 10), Hold for respiratory rate less than 10 per minute. Maximum dose 3 mg over one hour including administrations in the OR. If multiple pain medications are ordered, start with HYDROmorphone or morphine and use fentaNYL for breakthrough pain., PACU Recovery, Routine 1659 (Given - Provider: Alma Rosa Wills RN)1736 (Given - Provider: Carol Chavarria, CHA)1753 (Given - Provider: Carol Chavarria RN) ketorolac (Toradol) (15 mg/mL) injection 15 mg 15 mg, Intravenous, EVERY 6 HOURS PRN, Starting on Fri09/08/24 at 0833, Until Fri09/08/24 at 1514, Pain, Routine 0841 (Given - Provid er: Clementine Grady RN) lidocaine (Xylocaine) 1% (10 mg/mL) injection 3 mg 3 mg (0.3 mL), Subcutaneous, ONCE PRN, 1 dose, Starting on Fri09/07/24 at 1614, Until Fri09/08/24 at 1514, for discomfort with PIV insertion, Recovery (Recovery-Hospital Unit), Routine naloxone (Narcan) (0.4 mg/mL) injection 0.2 mg 0.2 mg, Intravenous, EVERY 1 MIN PRN, 10 doses, Starting on Fri09/07/24 at 1614, Until Fri09/08/24 at 1514, Opioid Reversal, If respiratory rate less than 6 OR the patient is unable to arouse OR SpO2 is declining, Give for respiratory rate of less than or equal to 6 and patient is heavily sedated or unarousable. May repeat every 60 seconds to increase respiratory rate. DO NOT exceed 2 mg total dose., Recovery (Recovery-Hospital Unit), Routine ondansetron (pf) (Zofran) (2 mg/mL) injection 4 mg(Linked Group 3) 4 mg, Intravenous, EVERY 8 HOURS PRN, Starting on Fri09/07/24 at 1857, Until Fri09/08/24 at 1514, Nausea, If multiple antiemetics are ordered, use ondansetron first, prochlorperazine second, and metoclopramide third. PO Preferred. If patient unable to take PO, may give IV if ordered. May repeat times one in 30 minutes if ineffective. Maximum daily dose = 24 mg/24 hours 0102 (Given - Provid er: Jude Mims RN)1117 (Given - Provider: Clementine Grady, CHA) ondansetron (Zofran) tablet 4 mg(Linked Group 3) 4 mg, Oral, EVERY 8 HOURS PRN, Starting on Fri09/07/24 at 1857, Until Fri09/08/24 at 1514, Nausea, Vomiting, If multiple antiemetics are ordered, use ondansetron first, prochlorperazine second, and metoclopramide third. PO Preferred. If patient unable to take PO, may give IV if ordered. May repeat times one in 45 minutes if ineffective. Maximum daily dose = 24 mg/24 hours, Routine 0102 (See Alternativ e - Provider: Jude Mims RN)1117 (See Alternative - Provider: Clementine Grady, CHA) oxyCODONE (Roxicodone) tablet 5 mg (CANCELED) 5 mg, Oral, EVERY 6 HOURS PRN, Starting on Fri09/07/24 at 1734, Until Fri09/08/24 at 0837, Pain, for pain not relieved by tylenol, For pain not relieved by ibuprofen or acetaminophen - if ordered., Routine 173 (Given - Provider: Carol Chavarria RN)2217 (Given - Provider: Jude Mims RN - Comment: PROVIDER AT BEDSIDE OK TO GIVE) polyethylene glycoL (Miralax) packet 17 g 17 g, Oral, DAILY PRN, Starting on Fri09/07/24 at 1857, Until Fri09/08/24 at 1514, Constipation, Administer if no bowel movement within 48 hours to achieve: (1) One bowel movement at least every 48 hours, AND (2) without straining. If multiple PRN bowel medications ordered, start with polyethylene glycoL, then lactulose, then oral bisacodyL, then bisacodyL suppository, then magnesium citrate, then tap water enema. Multiple medications may be given concomitantly for constipation., Routine sodium chloride 0.9 % (flush) (BD PosiFlush Normal Saline 0.9) flush 5-20 mL 5-20 mL, Intravenous, EVERY 1 MIN PRN, Starting on Fri09/07/24 at 1614, Until Fri09/08/24 at 1514, flush, Flush pertains to all indwelling lines. Flush per protocol found in the job aid using the link provided on this medication record., Recovery (Recovery-Hospital Unit), Routine Linked Groups Order Group 1: pantoprazole EC (Protonix) tablet 40 mgJump to med 40 mg, Oral, DAILY, First dose on Fri09/07/24 at 1915, Until Discontinued, DO NOT CRUSH OR OPEN If unable to take PO, may give IV, Routine Or pantoprazole (Protonix) injection 40 mgJump to med 40 mg, Intravenous, DAILY, First dose on Fri09/07/24 at 1915, Until Discontinued, Reconstitute with 10 mL of normal saline to a concentration of 4 mg/mL and inject slowly over 2 minutes. Reconstitute with 10 mL of normal saline to a concentration of 4 mg/mL and inject slowly over 2 minutes., Routine Group 2: HYDROmorphone (Dilaudid) (0.2 mg/1 mL) injection syringe 0.2 mg (CANCELED) 0.2 mg, Intravenous, EVERY 10 MIN PRN, Starting on Fri09/07/24 at 1620, Until Fri09/07/24 at 1820, Pain, For Mild to Moderate Pain (1-5 out of 10), Hold for respiratory rate less than 10 per minute. Maximum dose 3 mg over one hour including administrations in the OR. If multiple pain medications are ordered, start with HYDROmorphone or morphine and use fentaNYL for breakthrough pain., PACU Recovery, Routine Or HYDROmorphone (Dilaudid) (0.2 mg/1 mL) injection syringe 0.4 mg (CANCELED)Jump to med 0.4 mg, Intravenous, EVERY 10 MIN PRN, Starting on Fri09/07/24 at 1620, Until Fri09/07/24 at 1820, Pain, For Moderate to Severe Pain (6-10 out of 10), Hold for respiratory rate less than 10 per minute. Maximum dose 3 mg over one hour including administrations in the OR. If multiple pain medications are ordered, start with HYDROmorphone or morphine and use fentaNYL for breakthrough pain., PACU Recovery, Routine Group 3: ondansetron (Zofran) tablet 4 mgJump to med 4 mg, Oral, EVERY 8 HOURS PRN, Starting on Fri09/07/24 at 1857, Until Fri09/08/24 at 1514, Nausea, Vomiting, If multiple antiemetics are ordered, use ondansetron first, prochlorperazine second, and metoclopramide third. PO Preferred. If patient unable to take PO, may give IV if ordered. May repeat times one in 45 minutes if ineffective. Maximum daily dose = 24 mg/24 hours, Routine Or ondansetron (pf) (Zofran) (2 mg/mL) injection 4 mgJump to med 4 mg, Intravenous, EVERY 8 HOURS PRN, Starting on Fri09/07/24 at 1857, Until Fri09/08/24 at 1514, Nausea, If multiple antiemetics are ordered, use ondansetron first, prochlorperazine second, and metoclopramide third. PO Preferred. If patient unable to take PO, may give IV if ordered. May repeat times one in 30 minutes if ineffective. Maximum daily dose = 24 mg/24 hours documented in this encounter Care Teams Assistant To The President Relationship Specialty Start Date End Date Maryanne Buckley PA [address] [place] [address] PCP - General Family Medicine 04/05/24 documented as of this encounter
--- OUTSIDE RECORDS SUMMARY | 2024-11-10 18:52 | XMS_ITS | Encounter Summary ---
Author Organization [facility] [place] [address] Care Team Providers Care Financial Advisor Name Role Phone Maryanne Buckley Primary Care Provider +1- [phone] Reason for Visit * Auth/Cert (Routine) Specialty [...] ENDOSCOPY,WITH BIOPSY SINGLE OR MULTIPLE (WRVU 2.39) Nathalie Deutsch MD [facility] [place] [address] [facility] Referral ID Status Reason Start Date Expiration Date Visits Re quested Visits Authorized [id number] 1 1 Encounter Details Date Type Department Care Team (Late st Contact Info) Description 09/07/2024 1:54 PM EST Anesthesia Event [place] [phone] Jeremiah Smith MD [facility] [place] [address] Anesthesia Record Procedure Summary Procedure Name Responsible Anesthesiologist Anesthesia Start Time Anesthesia Stop Time @ENTEROENTEROSTOMY, ANASTOMOSIS OF INTESTINE W OR WO CUTANEOUS ENTEROSTOMY (WRVU 22.11) (Abdomen) Jeremiah Smith MD 09/07/24 1354 09/07/24 1617 Events Date Time Event Comment 09/07/2024 1320 1354 AN Verify 1354 Start 1354 An Start Data 1358 An Induction 1401 An Intubation 1406 Anesthesia Ready 1420 Procedure Start 1426 Quick Note Reverse T posit ion 1429 Quick Note Taken out of re verse T position due to hypotension 1433 Quick Note Reverse T posit ion 1534 Quick Note Bed flattened o ut of reverse T 1608 Extubation/LMA Out 1612 an stop data 1617 Stop Meds Name Total midazolam 2 mg fentaNYL 100 mcg lidocaine IV 50 mg propofoL 200 mg propofol INF 338.44 mg rocuronium 70 mg ePHEDrine 25 mg PHENYLephrine 480 mcg dexAMETHasone 8 mg ondansetron 4 mg ceFAZolin (Ancef) 2 g vial a ttach to sodium chloride 0.9% 100 mL Mini-Bag Plus 2 g PHENYLephrine INF 2,820 mcg sugammadex 200 mg sodium chloride 0.9% 1,000 mL * Agents Name O2 * Blood No blood administrations on file. Lines, Drains, and Airways Type Details Placement Removal Incision 09/07/24; abdomen; laparoscopic punctures (specify) (6) 09/07/24 0000 by Buffy Cespedes, RN ETT Mask Ventilation: No t Attempted (0); ETT Type: Cuffed; ETT Size: 7 mm; Rashid Blade: 2; Notes: Asleep, RSI, Stylette; Attempts: 1; Laryngoscopy Grade: 1; ETT Placement Verified By: Auscultation, Capnometry, Visual; Secured at Teeth: 23 cm; Inserted by: Gianna Alfonso CRNA; Removal Date: 09/07/24; Removal Time: 1608 07/20/24 1638 by Rupal Alfonso CRNA 09/07/24 1608 by Jeremiah Smith MD PIV 09/07/24; 1354; vsey-sir-wliepr catheter system; 22 gauge, 1.75 in length; cephalic vein (lateral side of arm), right; Ultrasound Guidance; Yes - US guidance used but Image NOT saved; MS FALL RN; distraction, tolerated well, appears comfortable; 0; catheter/device intact, removed per policy/procedure; 09/08/24; 1236 09/07/24 1354 by Ace Christine RN 09/08/24 1236 by Clementine Grady RN ETT Mask Ventilation: Ea sy (1); ETT Type: Cuffed; ETT Size: 7 mm; Indirect: Video; Attempts: 1; Laryngoscopy Grade: 1; ETT Placement Verified By: Capnometry; Secured at Teeth: 21 cm; Inserted by: tn; Removal Date: 09/07/24; Removal Time: 1608 09/07/24 1401 by Jeremiah Smith MD 09/07/24 1608 by Jeremiah Smith MD documented in this encounter Social History Tobacco Use Types Packs/Day Years Used Date Smoking Tobacco: Never Smokeless Tobacco: Never Alcohol Use Standard Drinks/Week Comments Not Currently 0 (1 standard drink = 0.6 oz pur e alcohol) Rarely [facility] Utilities Answer Date Recorded In the past 12 months has th e [employer], gas, oil, or water [employer] threatened to shut off services in your [...] any time in the past 12 m [facility], were you homeless or living in a residential (including now)? No 09/08/2024 DH IPV Inpatient [...] AM EDT documented as of this encounter OR Notes * Anesthesia Postprocedure Evaluation - Jeremiah Smith MD - 09/07/2024 4:21 PM EST Department of Anesthesiology Post-procedure Note Patient: Jaclyn Carver Procedure Summary Date: 09/07/24 Room / Location: [facility] OR [address] [place] [address] MAIN OR Anesthesia Start: 1354 Anesthesia Stop: 1617 Procedures: @ENTEROENTEROSTOMY, ANASTOMOSIS OF INTESTINE W OR WO CUTANEOUS ENTEROSTOMY (WRVU 22.11) (Abdomen) LAPAROSCOPY, DIAGNOSTIC, ABDOMEN (WRVU 5.14) (Abdomen) UPPER GASTROINTESTINAL ENDOSCOPY,WITH BIOPSY SINGLE OR MULTIPLE (WRVU 2.39) Diagnosis: Duodenal stricture (Duodenual stricture) Surgeons: Nathalie Deutsch MD Responsible Provider: Jeremiah Smith MD Anesthesia Type: general ASA Status: 2 All Anesthesia Providers: Anesthesiologist: Jeremiah Smith MD Vitals Value Taken Time BP 114/52 09/07/24 1615 Temp 36.7 ??C (98.1 ??F) 09/07/24 1614 Pulse 73 09/07/24 1621 Resp 18 09/07/24 1621 SpO2 95 % 09/07/24 1621 Pain Score Vitals shown include unfiled device data. Patient Location: PACU/[facility] Level of Consciousness: Conscious but Sleepy Pain Management: Satisfactory Analgesia PONV: None Cardiovascular Status: Hemodynamically Stable Respiratory Status: Room Air and Stable Respiratory Status Postoperative Fluid Status: Intravascular EUvolemia Possible Anesthetic Complications: NONE apparent at time of evaluation Final Primary Anesthesia Type: General (The anesthetic type performed was the same as planned.) Comments: * Anesthesia Preprocedure Evaluation - Jeremiah Smith MD - 09/06/2024 1:57 PM EST Pre-Anesthesia Evaluation for: Jaclyn Carver a 53 y.o. female. Procedure(s): @ENTEROENTEROSTOMY, ANASTOMOSIS OF INTESTINE W OR WO CUTANEOUS ENTEROSTOMY (WRVU 22.11) LAPAROSCOPY, DIAGNOSTIC, ABDOMEN (WRVU 5.14) UPPER GASTROINTESTINAL ENDOSCOPY,WITH BIOPSY SINGLE OR MULTIPLE (WRVU 2.39) Past Medical History: Diagnosis Date Anemia Anxiety Depressive disorder GERD (gastroesophageal reflux disease) GI bleed HTN (hypertension) Hypothyroidism Migraine Past Surgical History: Procedure Laterality Date PRO ENDOSCOPIC US EXAM, ESOPH N/A 07/20/2024 UPPER EUS- ENDOSCOPIC ULTRASOUND (WRVU 3.47) performed by Wero Church MD at [facility] ENDOSCOPY PRO UPPER GI ENDOSCOPY, BIOPSY N/A 07/20/2024 EGD WITH BIOPSY (WRVU 2.39) performed by Wero Church MD at [facility] ENDOSCOPY PRO UPPER GI ENDOSCOPY, W/DILAT, GASTRIC OUT N/A 07/20/2024 EGD,WITH DILATION GASTRIC/DUODENAL STRICTURES (WRVU 3.08) [facility] Wero [facility] Social History Tobacco Use Smoking status: Never Smokeless tobacco: Never Substance Use Topics Alcohol use: Not Currently Comment: Rarely Social History Substance and Sexual Activity Drug Use Yes Types: Benzodiazapines Allergies Allergen Reactions Prednisone Altered mental status Medications: MAR and/or home medications have been reviewed. Physical Exam: Preprocedure Vitals Current as of 09/06/24 1357 No BP, pulse, respiration, SpO2, or temperature recorded. Height: 162.6 cm (5' 4.02) (08/16/24) Weight: 69.1 kg (152 lb 4.8 oz) (08/16/24) BMI: 26.13 IBW: 54.7 kg (120 lb 10.7 oz) Airway Assessment: Mallampati: I TM distance: >3 FB Neck ROM: full Cardiovascular Assessment: Rhythm: regular Rate: normal Pulmonary Assessment: unlabored breathing Dental Assessment: - normal exam Misc Assessment: Last Filed Perioperative Cognitive Screening None Anesthesia Plan: ASA 2 general, with a(n) intravenous induction Region - Other Informed Consent: Anesthetic plan and risks discussed with patient. Attending NOTE Brief HPI: 53 y.o. with duodenal stricture to OR for diagnostic lap, laparoscopic bypass of stricture Past Medical History: Diagnosis Date Anemia Anxiety Depressive disorder GERD (gastroesophageal reflux disease) GI bleed HTN (hypertension) Hypothyroidism Migraine BP Readings from Last 3 Encounters: 08/16/24 152/80 07/20/24 143/77 11/01/19 102/64 METS:>4 Cardiac Symptoms: denies ECHO: 2020 1. Borderline concentric left ventricular hypertrophy is observed. Global left ventricular systolic function appears hyperdynamic. Ejection fraction is estimated to be 75%. There are no left ventricular segmental wall motion abnormalities. 2. The right ventricle is normal in size. Right ventricular global systolic function is normal. 3. No significant valvular abnormalities. Cath 2020 Nonobstructive CAD LABS: Lab Results Component Value Date HGB 11.2 (L) 11/01/2019 PLATELET 249 11/01/2019 INR 1.0 10/31/2019 NA 137 11/01/2019 K 3.6 11/01/2019 CREATININE 0.50 (L) 11/01/2019 Type and Screen: No results found for: ABORH Past anesthetic problems: none Previous airway notes (on eDH): Mask Ventilation: Not Attempted (0); ETT Type: Cuffed; ETT Size: 7 mm; Rashid Blade: 2; Notes: Asleep, RSI, Stylette; Attempts: 1; Laryngoscopy Grade: 1; ETT Placement Verified By: Auscultation, Capnometry, Visual; Secured at Teeth: 23 cm; Inserted by: Gianna Alfonso CRNA NPO status: Reviewed and appropriate Anesthetic Plan: GETA Monitoring: Standard ASA monitors Anesthesia Screening documented in this encounter Plan of Treatment Not on file documented as of this encounter Visit Diagnoses Not on filedocumented in this encounter Administered Medications Inactive Administered Medications - up to 3 most recent administrations Medication Order MAR Action Action Date Dose Rate Site ceFAZolin (Ancef) 2 g vial attach to sodium chloride 0.9% 100 mL Mini-Bag Plus 2 g, Intravenous, EVERY 4 HOURS, 1 dose, First dose on Fri09/07/24 at 1300, Administer over 30 Minutes, Intra-Operative (Intra-Procedure), Indication for (Active or Suspected): Prophylaxis New Bag 09/07/2024 2:13 PM EST 2 g dexAMETHasone (Decadron) injection Intravenous, PRN, Starting on Fri09/07/24 at 1359, Until Fri09/07/24 at 1621, Anesthesia Intra-op, Routine Given 09/07/2024 1:59 PM EST 8 mg ePHEDrine sulfate (5 mg/mL) multi-dose injection Intravenous, PRN, Starting on Fri09/07/24 at 1428, Until Fri09/07/24 at 1621, Anesthesia Intra-op, Routine Given 09/07/2024 2:50 PM EST 10 mg Given 09/07/2024 2:28 PM EST 15 mg fentaNYL (pf) (50 mcg/mL) multi-dose injection Intravenous, PRN, Starting on Fri09/07/24 at 1358, Until Fri09/07/24 at 1621, Anesthesia Intra-op, Routine Given 09/07/2024 4:08 PM EST 25 mcg Given 09/07/2024 4:01 PM EST 25 mcg Given 09/07/2024 1:58 PM EST 50 mcg lidocaine (pf) (Xylocaine) (20 mg/mL) 2% injection syringe Intravenous, PRN, Starting on Fri09/07/24 at 1358, Until Fri09/07/24 at 1621, Anesthesia Intra-op, Routine Given 09/07/2024 1:58 PM EST 50 mg midazolam (pf) (Versed) (1 mg/mL) multi-dose injection Intravenous, PRN, Starting on e 09/07/24 at 1354, Until Fri09/07/24 at 1621, Anesthesia Intra-op, Routine Given 09/07/2024 1:54 PM EST 2 mg ondansetron (pf) (Zofran) (2 mg/mL) injection Intravenous, PRN, Starting on Fri09/07/24 at 1548, Until Fri09/07/24 at 1621, Anesthesia Intra-op, Routine Given 09/07/2024 3:48 PM EST 4 mg PHENYLephrine (Beny-Synephrine) (80 mcg/mL) in sodium chloride 0.9% 250 mL infusion Intravenous, CONTINUOUS PRN, Starting on Fri09/07/24 at 1433, Until Fri09/07/24 at 1621, Anesthesia Intra-op, Routine Rate/Dose Change 09/07/2024 3:37 PM EST 20 mcg/min 15 mL/hr Rate/Dose Change 09/07/2024 3:09 PM EST 40 mcg/min 30 mL/h r Rate/Dose Change 09/07/2024 2:53 PM EST 50 mcg/min 37.5 mL /hr PHENYLephrine in NS (PF) (BENY-SYNEPHRINE) 0.8 mg/10 mL (80 mcg/mL) multi-dose injection Syringe Intravenous, PRN, Starting on Fri09/07/24 at 1426, Until Fri09/07/24 at 1621, Anesthesia Intra-op, Routine Given 09/07/2024 2:53 PM EST 80 mcg Given 09/07/2024 2:30 PM EST 80 mcg Given 09/07/2024 2:28 PM EST 160 mcg propofoL (Diprivan) (10 mg/mL) infusion Intravenous, CONTINUOUS PRN, Starting on Fri09/07/24 at 1359, Until Fri09/07/24 at 1621, Anesthesia Intra-op, Routine New Bag 09/07/2024 1:59 PM EST 50 mcg/kg/min 17.97 mL/hr propofoL (Diprivan) 10 mg/mL bolus injection (Anesthesia) Intravenous, PRN, Starting on Fri09/07/24 at 1358, Until Fri09/07/24 at 1621, Anesthesia Intra-op Given 09/07/2024 1:58 PM EST 200 mg rocuronium (Zemuron) (10 mg/mL) multi-dose injection Intravenous, PRN, Starting on Fri09/07/24 at 1359, Until Fri09/07/24 at 1621, Anesthesia Intra-op, Routine Given 09/07/2024 2:22 PM EST 20 mg Given 09/07/2024 1:59 PM EST 50 mg sodium chloride 0.9% infusion Intravenous, CONTINUOUS PRN, Starting on Fri09/07/24 at 1354, Until Fri09/07/24 at 1621, Anesthesia Intra-op New Bag 09/07/2024 4:06 PM EST New Bag 09/07/2024 1:54 PM EST sugammadex (Bridion) 100 mg/mL injection Intravenous, PRN, Starting on Fri09/07/24 at 1559, Until Fri09/07/24 at 1621, Anesthesia Intra-op, Routine Given 09/07/2024 3:59 PM EST 200 mg documented in this encounter Care Teams Financial Advisor Relationship Specialty Start Date End Date Maryanne Buckley PA [address] [place] [address] PCP - General Family Medicine 04/05/24 documented as of this encounter
--- OUTSIDE RECORDS SUMMARY | 2024-11-10 18:52 | XMS_ITS | Encounter Summary ---
Author Organization [facility] Address [address] [place] [address] Care Team Providers Care [employer] Supervisor Name Role Phone Maryanne Buckley PA-C Primary Care Provider + Encounter Details Date Type Department Care Team (Late st Contact Info) Description 03/17/2024 Lab Requisition [facility] Pathology & Laboratory Medicine - [address] [id number] Outr Resulting Lab, Provider Social History Tobacco [...] Lyme Ab Negative Negative 03/18/2024 12:22 EDT [facility] Blood VENOUS BLOOD / Unknown 03/17/2024 12:28 EDT 03/17/2024 21:30 EDT us Provider Outr Resulting Lab IMMUNOLOGY AND SEROL OGY ORDERABLES Final Result [facility] [address] [place] [address] documented in this encounter Visit Diagnoses Not on filedocumented in this encounter Care Teams [employer] Supervisor Relationship Specialty Start Date End Date Maryanne Buckley PA-C PCP - General 05/09/14 documented as of this encounter
--- OUTSIDE RECORDS SUMMARY | 2024-11-10 18:52 | XMS_ITS | Encounter Summary ---
Author Organization [facility] Address [facility] [place] [address] Care Team Providers Care Client Delivery Manager Name Role Phone Maryanne Buckley Primary Care Provider +1- [phone] Encounter Details Date Type Department Care Team (Late st Contact Info) Description 10/25/2024 2:00 PM EST Office Visit [place] [address] Aracelis Roberson, SUPERVISOR ASSEMBLING [facility] [place] [address] Surgery follow-up Social History Tobacco Use Types Packs/Day Years Used Date Smoking Tobacco: Never Smokeless Tobacco: Never Alcohol Use Standard Drinks/Week Comments Not Currently 0 (1 standard drink = 0.6 oz pur e alcohol) Rarely [facility] Utilities Answer Date Recorded In the past 12 months has e [employer], gas, oil, or water [employer] threatened to shut off services in your [...] any time in the past 12 m [facility], were you homeless or living in a intermediate (including now)? No 09/08/2024 IPV Inpatient Questions [...] Sign Reading Time Taken Comments Blood Pressure 132/63 10/25/2024 1:53 PM EST Pulse 84 10/25/2024 1:53 PM EST Temperature 36.2 ??C (97.2 ??F) 10/25/2024 1:53 PM ES T Respiratory Rate 18 10/25/2024 1:53 PM EST Oxygen Saturation 97% 10/25/2024 1:53 PM EST Inhaled Oxygen Concentration - - Weight - - Height - - Body Mass Index - - documented in this encounter Progress Notes * Lenin Pandya LNA - 10/25/2024 2:00 PM EST * Aracelis Roberson APRN - 10/25/2024 2:00 PM EST Jaclyn Carver presents today for surgical follow up. Bre is a 53 yo female with history of benign duodenal stricture and history of post prandial abdominal pain, bloating, nausea, vomiting and po intolerance. It wa snot amenable to endoscopic management. 09/07/24: Enteroenterostomy, anastomosis of intestine w/wo cutaneous enterostomy, diagnostic laparoscopy upper gastrointestinal endoscopy with biopsy-Get Findings: 1) EGD - pinpoint stricture just distal to the duodenal bulb, with widened pylorus. Not enough space between the pylorus and stricture to create an anastomosis 2) Created a loop gastrojejunostomy (50 cm distal to the LOT) Bre tells me she is feeling very well today. She had vomiting about a week after her procedure-she tells me she was seen locally, diagnosed with COVID, and was scanned as well. She was told that her CT was negative for any obstruction or intra abdominal process. Since that time she has felt increasingly well, and today is without any fever, abdominal pain, nausea or vomiting. She is now eating, moving her bowels and voiding without difficulty. Her stamina is returning, and she is delighted withher progress. EXAM: Looks well, abd soft non tender non distended. Trocar sites are benign and nicely healed. Impression/plan: Doing very well, incisions are healed, no infectious or abdominal symptoms. No activity restrictions going forward. At this time we will see Bre in follow up on and as needed basis we are happy to see her back should anything specific arise or should there be any question orconcern. documented in this encounter Plan of Treatment Not on file documented as of this encounter Visit Diagnoses Diagnosis Surgery follow-up Follow-up examination, following unspecified surgery documented in this encounter Care Teams Client Delivery Manager Relationship Specialty Start Date End Date Maryanne Buckley PA [address] [place] [address] PCP - General Family Medicine 04/05/24 documented as of this encounter
--- OUTSIDE RECORDS SUMMARY | 2024-11-10 18:52 | XMS_ITS | Encounter Summary ---
Author Organization [facility] Address [facility] [place] [address] Care Team Providers Care Elementary Assistant Principal Name Role Phone Maryanne Buckley Primary Care Provider +1- [phone] Encounter Details Date Type Department Care Team (Late st Contact Info) Description 2024 Telephone General Surgery [facility] [place] [phone] Parveen Mary MD [facility] [place] [address] Social History Tobacco Use Types Packs/Day Years Used Date Smoking Tobacco: Never Smokeless Tobacco: Never Alcohol Use Standard Drinks/Week Comments Not Currently 0 (1 standard drink = 0.6 oz pur e alcohol) Rarely [facility] Utilities Answer Date Recorded In the past 12 months has [employer], gas, oil, or water [employer] threatened to shut off services in your [...] any time in the past [address] [facility], were you homeless or living in a penitentiary (including now)? No 09/08/2024 DH IPV Inpatient [...] encounter Miscellaneous Notes * Telephone Encounter - Parveen Mary MD - 2024 9:42 AM EST Jaclyn Carver is a 53 y.o. female who underwent a laparoscopic loop gastrojejunostomy for duodenal stricture by Dr. Deutsch. I called back given that there was a page for concern for vomiting. Phone went to voicemail. Left a voicemail to call if there were any concerns. Parveen Mary MD 09/12/24 documented in this encounter Plan of Treatment Not on file documented as of this encounter Visit Diagnoses Not on filedocumented in this encounter Care Teams Elementary Assistant Principal Relationship Specialty Start Date End Date Maryanne Buckley PA [address] [place] [address] PCP - General Family Medicine 04/05/24 documented as of this encounter
--- OUTSIDE RECORDS SUMMARY | 2024-11-10 18:52 | XMS_ITS | Encounter Summary ---
Author Organization [facility] Address [address] [place] [address] Care Team Providers Care Microgrinder Operator Name Role Phone Marcio Keshia Torres PA-C Primary Care Provider + Encounter Details Date Type Department Care Team (Late st Contact Info) Description 07/10/2017 Results Only [facility] [phone] Darnell Davidson MD [address] [place] [address] Social History Tobacco Use Types Packs/Day Years [...] ? ADAM CARVER ? Accession #: ? [id number] ? : ? 1970 (Age: 46) ??F [...] [place]or 07/11/2017 7:57 AM End of Report [facility] 07/10/2017 17:2 3 EDT 07/10/2017 17:23 EDT us Darnell Davidson MD PATHOLOGY ORDERABLES Final Resu lt [facility] [address] [place] [address] documented in this encounter Visit Diagnoses Not on filedocumented in this encounter Care Teams Microgrinder Operator Relationship Specialty Start Date End Date Keshia Goldberg PA-C PCP - General 05/09/14 documented as of this encounter
--- OUTSIDE RECORDS SUMMARY | 2024-11-10 18:52 | XMS_ITS | Encounter Summary ---
Author Organization [facility] Address [facility] [place] [address] Care Team Providers Care Rollout Manager Name Role Phone Maryanne Buckley Primary Care Provider +1- [phone] Reason for Visit * Reason Onset Date Comments Appointment 09/24/2024 Encounter Details Date Type Department Care Team (Late st Contact Info) Description 09/24/2024 Telephone [place] [address] Anthony Escalante MD [facility] [place] [address] Appointment Social History Tobacco Use Types Packs/Day Years Used Date Smoking Tobacco: Never Smokeless Tobacco: Never Alcohol Use Standard Drinks/Week Comments Not Currently 0 (1 standard drink = 0.6 oz pur e alcohol) Rarely [facility] Utilities Answer Date Recorded In the past 12 months has th e [employer], gas, oil, or water [employer] threatened to shut off services in your [...] any time in the past 12 m [facility], were you homeless or living in a group home (including now)? No 09/08/2024 IPV Inpatient Questions [...] * Telephone Encounter - Analilia Leone - 09/30/2024 11:57 AM EST LM for pt in regards to rescheduling NS appt. Per pt cancellation note- financial reason. * Telephone Encounter - Analilia Leone - 09/28/2024 8:04 AM EST LM for pt in regards to appt scheduled on 10/05 with Anthony Escalante MD. MRI C spine was canceled at [facility]. Pt to reschedule imaging prior to NS appt or will need to cancel until imaging is rescheduled. Update encounter * Telephone Encounter - Analilia Leone - 09/24/2024 8:55 AM EST LM for pt in regards to appt scheduled on 10/05 with Anthony Escalante MD. MRI C spine was canceled at [facility]. Pt to reschedule imaging prior to NS appt or will need to cancel until imaging is rescheduled. Update encounter Fax from [facility]: Patient canceled appointment 09/23/24 did not reschedule. documented in this encounter Plan of Treatment Not on file documented as of this encounter Visit Diagnoses Not on filedocumented in this encounter Care Teams Rollout Manager Relationship Specialty Start Date End Date Maryanne Buckley PA [address] [place] [address] PCP - General Family Medicine 04/05/24 documented as of this encounter
--- OUTSIDE RECORDS SUMMARY | 2024-11-10 18:52 | XMS_ITS | Encounter Summary ---
Author Organization [facility] Address [facility] [place] [address] Care Team Providers Care Fur Weigher Name Role Phone Maryanne Buckley Primary Care Provider +1- [phone] Encounter Details Date Type Department Care Team (Late st Contact Info) Description 10/11/2024 Interpretation Only Radiology Library at [facility] [place] [id number] Chaparro Mello MD [facility] [place] [address] Social History Tobacco Use Types Packs/Day Years Used Date Smoking Tobacco: Never Smokeless Tobacco: Never Alcohol Use Standard Drinks/Week Comments Not Currently 0 (1 standard drink = 0.6 oz pur e alcohol) Rarely [facility] Utilities Answer Date Recorded In the past 12 months has e [employer], gas, oil, or water [employer] threatened to shut off services in your [...] any time in the past 12 m [facility], were you homeless or living in a assisted (including now)? No 09/08/2024 IPV Inpatient Questions [...] PM EST) 10/11/2024 5:37 PM EST Narrative [facility] - 10/11/2024 5:37 PM EST This exam is auto-finalizing. It's purpose is for storage only. Chaparro Mello MD IMG FILM LIBRARY ORD ERABLES [place], [place] documented in this encounter Visit Diagnoses Not on filedocumented in this encounter Care Teams Fur Weigher Relationship Specialty Start Date End Date Maryanne Buckley PA [address] [place] [address] PCP - General Family Medicine 04/05/24 documented as of this encounter
--- OUTSIDE RECORDS SUMMARY | 2024-11-10 18:52 | XMS_ITS | Encounter Summary ---
Author Organization [place] [address] Care Team Providers Care Stocklayer Name Role Phone Maryanne Buckley Primary Care Provider +1- [phone] Reason for Visit * Auth/Cert (Routine) Specialty [...] OR MULTIPLE (WRVU 2.39) Jessica Deutsch MD [facility] [place] [address] [facility] Referral ID Status Reason Start Date Expiration Date Visits Re quested Visits Authorized [id number] 1 1 Encounter Details Date Type Department Care Team (Late st Contact Info) Description 09/07/2024 12:46 PM EST - 09/07/2024 4:16 PM EST [place] [address] Jessica Deutsch MD [facility] [place] [address] @ENTEROENTEROSTOMY, ANASTOMOSIS OF INTESTINE W OR WO CUTANEOUS ENTEROSTOMY (WRVU 22.11) Social History Tobacco Use Types Packs/Day Years Used Date Smoking Tobacco: Never Smokeless Tobacco: Never Alcohol Use Standard Drinks/Week Comments Not Currently 0 (1 standard drink = 0.6 oz pur e alcohol) Rarely [facility] Utilities Answer Date Recorded In the past 12 months has th e [employer], gas, oil, or water [employer] threatened to shut off services in your [...] any time in the past 12 m [facility], were you homeless or living in a mcc (including now)? No 09/08/2024 IPV Inpatient Questions [...] Sign Reading Time Taken Comments Blood Pressure 114/52 09/07/2024 4:14 PM EST Pulse 73 09/07/2024 4:14 PM EST Temperature 36.7 ??C (98.1 ??F) 09/07/2024 4:14 PM ES T Respiratory Rate 18 09/07/2024 4:14 PM EST Oxygen Saturation 96% 09/07/2024 4:14 PM EST Inhaled Oxygen Concentration - - [...] 11:30 AM Anthony Escalante MD Neurosurgery at [facility] Arrive at: Director Of Elementary Education Area 3C [phone] 10/14/2024 11:00 AM Aracelis Roberson APRN General Surgery at [facility] Arrive at: Director Of Elementary Education Area 4L [phone] Instructions Given to Patient at Discharge: Patient [...] and liquid nutritional supplements (protein shakes, Ensure, Tatum Instant Breakfast, etc). You can not eat [...] hours please call the Surgery Clinic at [phone] before 5 PM on weekdays. For questions after hours and on weekends please call the hospital calculator operator at [phone] and ask for the General Surgery resident shell mold bonding machine operator. They may not be familiar with your [...] discussed with your surgeon. Follow-up: Please call [phone] (clinic number for appointments) to confirm or change the date and time of your appointment. Future Appointments Date Time Provider Department Center 10/05/2024 11:30 AM Anthony Escalante MD [facility] [id number] [facility] 10/14/2024 11:00 AM Aracelis Roberson APRN [facility] SURG [facility] General Instructions None Future Appointments and Orders Future Appointments and Orders Future Appointments Provider Department Dept Phone 10/05/2024 11:30 AM Anthony Escalante MD Neurosurgery at [facility] Arrive at: Director Of Elementary Education Area 3C [phone] 10/14/2024 11:00 AM Aracelis Roberson APRN General Surgery at [facility] Arrive at: Director Of Elementary Education Area 4L [phone] Signed: OMAR Her Minimally Invasive Surgery 12:38 PM 09/08/24 Service pager: [phone] Primary Barb Physician: OMAR Rea [address] / [place] [address] documented in this encounter Discharge Instructions * [...] and liquid nutritional supplements (protein shakes, Ensure, Tatum Instant Breakfast, etc). You can not eat [...] hours please call the Surgery Clinic at [phone] before 5 PM on weekdays. For questions after hours and on weekends please call the hospital calculator operator at [phone] and ask for the General Surgery resident shell mold bonding machine operator. They may not be familiar with your [...] discussed with your surgeon. Follow-up: Please call [phone] (clinic number for appointments) to confirm or change the date and time of your appointment. Future Appointments Date Time Provider Department Center 10/05/2024 11:30 AM Anthony Escalante MD [facility] [id number] [facility] 10/14/2024 11:00 AM Aracelis Roberson APRN [facility] SURG [facility] documented in this encounter Medications at Time [...] of this encounter Progress Notes * Abraham Crotés MD - 09/07/2024 8:08 PM EST Surgery [...] MD 09/07/2024 Minimally Invasive Surgery, Team Pager [phone] documented in this encounter H&P Notes * Jessica Deutsch MD - 09/07/2024 12:31 PM EST [...] with laparoscopic bypass, egd. JESSICA DEUTSCH MD Jaclyn Carver is a 53 y.o. female referred [...] She was diagnosed with an ulcer in [id number], although she is unclear where this was [...] 3.47) performed by Wero Church MD at [facility] ENDOSCOPY PRO UPPER GI ENDOSCOPY, BIOPSY N/A 07/20/2024 EGD WITH BIOPSY (WRVU 2.39) performed by Wero Church MD at [facility] ENDOSCOPY PRO UPPER GI ENDOSCOPY, W/DILAT, GASTRIC OUT N/A 07/20/2024 EGD,WITH DILATION GASTRIC/DUODENAL STRICTURES (WRVU 3.08) [facility] Wero [facility] cholecystectomy Medications: Current Medications Current [...] Age of Onset Coronary Artery Disease Father [place] at the age of 42 Coronary Artery [...] surrogate would be surrogate decision maker per [place] surrogate decision making law. (Only good for 180 days) Any patient receiving care in [place] must abide by [place] law. The hierarchy for surrogate decision making is: (a) Patient???s spouse or civil union partner unless there is a divorce proceeding, separation agreement, or restraining order limiting that person???s relationship with the patient. Zahira Stringer [phone] (b) Any adult son or daughter of the patient. (c) Either parent of the patient. (d) Any adult brother or sister of the patient. (e) Any adult grandchild of the patient. (f) Any grandparent of the patient. (g) Any adult aunt, uncle, niece, or nephew of the patient. (h) A close friend of the patient. (i) The agent with financial power of personal injury attorney or a conservator appointed in accordance with [...] were you homeless or living in a mcc (including now)?: No In the past 12 [...] Current DME: none Home Address confirmed as: [address] [address] [place] [address] Social & Family Supports: All names listed below confirmed with patient as current and correct Extended Emergency Contact Information Primary Emergency Contact: ZAHIRA STRINGER Address: [address] [address] [facility] Relation: Civil Union Partner Secondary Emergency Contact: Adams Carver [facility] Relation: Child Current Care Provided by: [...] Pertinent/Service Specific Information: Health/Prescription Coverage: Primary Insurance: [employer] [place] Payor: [employer] [facility] [place] / Plan: [place] / Product Type: *No Product type* / Secondary Insurance: N/A ; Prescription Coverage: Yes Preferred Pharmacy: [facility] - [place], [place] - [address] [facility] [address] [facility] [address] [facility] [address] [place] [address] [address] [facility] [address] [place] [address] [place] Status: Patient is a : No Primary Care Provider confirmed: OMAR Rea [phone] Patient/Caregiver Goals of Treatment: recovery post surgery Potential Needs for Transition of Care: none Agency Referrals: Not Applicable Transportation: no concerns Transportation Anticipated: family or friend will provide Concerns to be Addressed: no discharge needs identified Assessment: Patient is admitted to [facility] service s/p status post loop gastrojejunostomy for [...] as indicated. Maria Eugenia Dick, RN, MSN, [facility] Surgery Nurse Nurses Director [phone] , Pager [phone] * Op Note - Jessica Deutsch MD - 09/07/2024 2:22 PM EST [facility] Operative Note Patient Name: Jaclyn Carver : [id number] MR#: [id number] Case Date: 09/07/2024 Surgeon: Surgeons and Role: [...] 1:02 AM EST Upper Gi Endoscopy, Biopsy ([id number]) 09/07/2024 1:53 PM EST Duodenal stricture Lap, Diagnostic Abdomen ([id number]) 09/07/2024 1:53 PM EST Duodenal stricture Bowel To Bowel Anastomosis ([id number]) 09/07/2024 1:53 PM EST Duodenal stricture LAPAROSCOPY, [...] 65 - 199 mg/dL 09/08/2024 1:48 AM [facility] Comment:Glucose Concentratio n >=200 mg/dL plus symptoms is consistent with Diabetes Mellitus. Blood Urea Nitrogen 13 8 - 18 mg/dL 09/08/2024 1:48 AM [facility] Creatinine 0.77 0.70 - 1.20 mg/dL 09/08/2024 1:48 AM [facility] Sodium 137 135 - 145 mMol/L 09/08/2024 1:48 AM [facility] Potassium 5.0 3.5 - 5.0 mMol/L 09/08/2024 1:48 AM [facility] Chloride 105 98 - 107 mMol/L 09/08/2024 1:48 AM [facility] Carbon Dioxide 20(L) 22 - 31 mMol/L 09/08/2024 1:48 AM [facility] Anion Gap 12 5 - 15 mMol/L 09/08/2024 1:48 AM [facility] Calcium 9.2 8.5 - 10.5 mg/dL 09/08/2024 1:48 AM [facility] Est Glomerular Filtration Rate - Female 92 mL/min/1. 73 m?? 09/08/2024 1:48 AM [facility] Comment: This patient's estimated GFR [...] EST Jessica Deutsch MD CHEMISTRY ORDERABLE S Performing Organization Address City/State/[facility] Co de Phone Number [facility] [address] * (ABNORMAL) CBC (with Diff) (09/08/2024 1:02 AM EST) White Blood Cell 4.19 4.00 - 9.50 x10(3)/mc L 09/08/2024 1:[address] [facility] Red Blood Cell 3.31(L) 4.00 - 5.21 x10(6)/mc L 09/08/2024 1:[address] [facility] Hemoglobin 9.9(L) 11.7 - 15.5 g/dL 09/08/2024 1:[address] [facility] Hematocrit 30.3(L) 35.7 - 45.8 % 09/08/2024 1:[address] [facility] Mean Cell Volume 91.5 82.6 - 94.4 fL 09/08/2024 1:23 AM [facility] Mean Cell Hemoglobin 29.9 27.1 - 32.0 pg 09/08/2024 1:23 AM [facility] Mean Cell Hemoglobin Concentration 32.7 31.7 - 35.0 g/dL 09/08/2024 1:23 AM [facility] Platelet 196 145 - 357 x10(3)/mc L 09/08/2024 1:23 AM [facility] Mean Platelet Volume 9.8 7.6 - 12.9 fL 09/08/2024 1:23 AM [facility] RDW Standard Deviation 41.9 37.0 - 46.0 fL 09/08/2024 1:23 AM [facility] RDW coefficient of variation 12.5 11.5 - 14.1 % 09/08/2024 1:23 AM [facility] NRBC% auto 0.0 % 09/08/2024 1:23 AM [facility] NRBC Absolute <0.01 <0.01 x10(3)/mc L 09/08/2024 1:23 AM [facility] Neutrophil % 91.2 % 09/08/2024 1:23 AM [facility] Neutrophil Absolute (ANC) - Automated 3.82 1.70 - 6.10 x10(3)/mc L 09/08/2024 1:23 AM [facility] Lymph % 7.6 % 09/08/2024 1:23 AM [facility] Lymph Absolute 0.32(L) 0.90 - 3.20 x10(3)/mc L 09/08/2024 1:23 AM [facility] Monocyte % 1.0 % 09/08/2024 1:23 AM [facility] Monocyte Absolute 0.04(L) 0.30 - 0.90 x10(3)/mc L 09/08/2024 1:23 AM [facility] Eos % 0.0 % 09/08/2024 1:23 AM [facility] Eos Absolute <0.04 0.00 - 0.40 x10(3)/mc L 09/08/2024 1:23 AM [facility] Basophil % 0.0 % 09/08/2024 1:[address] [facility] Baso Absolute <0.04 0.00 - 0.10 x10(3)/mc L 09/08/2024 1:[address] [facility] Immature Gran % 0.2 % 1:[address] [facility] Immature Gran Absolute <0.04 0.00 - 0.04 x10(3)/mc L 09/08/2024 1:[address] [facility] Blood VENOUS BLOOD SPECIMEN / Unknown Venipuncture / Unknown 09/08/2024 1:02 AM EST 09/08/2024 1:17 AM EST Jessica Deutsch MD HEMATOLOGY ORDERABL ES [facility] [place] [id number] documented in this encounter Visit Diagnoses Diagnosis Duodenal stenosis- Primary Other obstruction of duodenum Duodenal stricture Other obstruction of duodenum Duodenal stricture Other obstruction of duodenum documented in this encounter Admitting Diagnoses Diagnosis Duodenal stenosis Other obstruction of duodenum documented in this encounter Administered Medications Inactive Administered Medications - up to 3 most recent administrations Medication Order MAR Action Action Date Dose Rate Site acetaminophen (Tylenol) tablet 975 mg 975 mg, [...] Given 09/08/2024 1:02 AM EST 975 mg BUPivacaine (pf) (Marcaine) (2.5 mg/mL) 0.25% injection PRN, Starting on Fri09/07/24 at 1500, Until Fri09/08/24 at 1514, Intra-Operative (Intra-Procedure), Routine Given 09/07/2024 3:00 PM EST 60 mLs 19- Surgical Site cloNIDine (Catapres) tablet 0.1 mg 0.1 mg, [...] Routine Given 09/07/2024 9:56 PM EST 5,000 Units ketorolac (Toradol) (15 mg/mL) injection 15 mg [...] daily dose = 24 mg/24 hours, Routine pantoprazole (Protonix) injection 40 mg 40 mg, [...] Given 09/07/2024 9:57 PM EST 5 mLs documented in this encounter Active and Recently [...] Wills RN) 0102 (Given - Provider: Jude Mims RN)0600 (Given - Provider: Jude Mims RN)1103 (Given - Provider: Clementine Grady RN) aprepitant (Emend) capsule 40 mg (COMPLETED) 40 mg, Oral, ONCE, 1 dose, On Fri09/07/24 at 0000, Routine 1302 (Given - Provider: Rosibel Conley, CHA) busPIRone (Buspar) tablet 7.5 mg 7.5 mg, [...] on Fri09/07/24 at 2100, Until Discontinued, Routine 2156 (Given - Provider: Jude Mims RN) docusate [...] on Fri09/07/24 at 2200, Until Discontinued, Routine 2155 (Given - Provider: Jude Mims RN) 0600 [...] and inject slowly over 2 minutes., Routine 1914 (See Alternative - Provider: Alma Rosa Wills [...] Mims RN) 0832 (Given - Provider: Clementine Grady RN) Continuous Medication Order 09/06/2024 09/07/2024 09/08/2024 lactated [...] Jude Mims RN)1117 (Given - Provider: Clementine Grady RN) ondansetron (Zofran) tablet 4 mg(Linked Group 3) [...] Mims RN)1117 (See Alternative - Provider: Clementine Grady RN) oxyCODONE (Roxicodone) tablet 5 mg (CANCELED) 5 mg, Oral, EVERY 6 HOURS PRN, Starting on Fri09/07/24 at 1734, Until Fri09/08/24 at 0837, Pain, for pain not relieved by tylenol, For pain not relieved by ibuprofen or acetaminophen - if ordered., Routine 1739 (Given - Provider: Carol Chavarria RN)2217 (Given [...] hours documented in this encounter Care Teams Stocklayer Relationship Specialty Start Date End Date Maryanne Buckley PA [address] [place] [address] PCP - General Family Medicine 04/05/24 documented as of this encounter
--- OUTSIDE RECORDS SUMMARY | 2024-11-10 18:52 | XMS_ITS | Encounter Summary ---
Author Organization [facility] Address [address] [place] [address] Care Team Providers Care Haircutter Name Role Phone Maryanne Buckley PA-C Primary Care Provider + Encounter Details Date Type Department Care Team (Latest Contact Info) Description 07/10/2017 10:59 EDT - 07/10/2017 23:59 EDT Hospital Encounter [address] [address] Unknown, Provider, MD Discharge Disposition: Home or Self Care Social [...] Code Departure Means Destination Home or Self Nursing Home documented in this encounter Plan of Treatment Not on file documented as of this encounter Visit Diagnoses Not on filedocumented in this encounter Care Teams Haircutter Relationship Specialty Start Date End Date Maryanne Buckley PA-C PCP - General 05/09/14 documented as of this encounter
--- OUTSIDE RECORDS SUMMARY | 2024-11-10 18:52 | XMS_ITS | Encounter Summary ---
Author Organization [facility] Address [facility] [place] [address] Care Team Providers Care Fur Vault Attendant Name Role Phone Maryanne Buckley Primary Care Provider +1- [phone] Encounter Details Date Type Department Care Team (Late st Contact Info) Description 09/13/2024 Telephone [place] [phone] Nathalie Deutsch MD [facility] [place] [address] Social History Tobacco Use Types Packs/Day Years Used Date Smoking Tobacco: Never Smokeless Tobacco: Never Alcohol Use Standard Drinks/Week Comments Not Currently 0 (1 standard drink = 0.6 oz pur e alcohol) Rarely [facility] Utilities Answer Date Recorded In the past 12 months has [employer], gas, oil, or water [employer] threatened to shut off services in your [...] time in the past 12 m [facility], were you homeless or living in a nursing home (including now)? No 09/08/2024 DH IPV Inpatient [...] Encounter - Nathalie Deutsch MD - 09/13/2024 9:54 AM EST Called patient in follow up regarding vomiting over the weekend. Left message with call back numbers. documented in this encounter Plan of Treatment Not on file documented as of this encounter Visit Diagnoses Not on filedocumented in this encounter Care Teams Fur Vault Attendant Relationship Specialty Start Date End Date Maryanne Buckley PA [address] [place] [address] PCP - General Family Medicine 04/05/24 documented as of this encounter
--- OUTSIDE RECORDS SUMMARY | 2024-11-10 18:52 | XMS_ITS | Encounter Summary ---
Author Organization [facility] Address [address] [place] [address] Care Team Providers Care Auto Mechanic Apprentice Name Role Phone Maryanne Buckley PA-C Primary Care Provider + Encounter Details Date Type Department Care Team (Late st Contact Info) Description 01/22/2021 Lab Requisition [facility] Pathology & Laboratory Medicine - [address] [id number] Outr Resulting Lab, Provider Social History Tobacco [...] 13:59 EDT) Hold Hold 01/22/2021 22:31 EDT [facility] Blood VENOUS BLOOD / Unknown 01/22/2021 13:59 EDT 01/22/2021 21:23 EDT us Provider Outr Resulting Lab LAB INFO SERVICE AND SUPPORT & PHONE RESULT Final Result Performing Organization Address City/[facility]/ZIP Co de Phone Number [facility] [address] [place] [address] * HOLD SST (01/22/2021 13:59 EDT) Hold Hold 01/22/2021 22:31 EDT [facility] Blood VENOUS BLOOD / Unknown 01/22/2021 13:59 EDT 01/22/2021 21:23 EDT us Provider Outr Resulting Lab LAB INFO SERVICE AND SUPPORT & PHONE RESULT Final Result Performing Organization Address City/[facility]/ZIP Co de Phone Number [facility] [address] [place] [address] * HOLD SST (01/22/2021 13:59 EDT) Hold Hold 01/22/2021 22:31 EDT [facility] Blood VENOUS BLOOD / Unknown 01/22/2021 13:59 EDT 01/22/2021 21:23 EDT us Provider Outr Resulting Lab LAB INFO SERVICE AND SUPPORT & PHONE RESULT Final Result Performing Organization Address City/[facility]/ZIP Co de Phone Number [facility] [address] [place] [address] * HEPATITIS B SURFACE ANTIBODY (01/22/2021 13:59 EDT) Hep B Surface Ab, Quantitative 113.1 See Note mIU/mL 01/23/2021 10:39 EDT [facility] Comment: Reference Range for Hep B Surface Ab, Quant: Positive: >= 10.0 mIU/mL Negative: ??< 10.0 mIU/mL Patient is presumed to be immune to infection with Hepatitis B Virus. Hep B Surface Ab, Qualitative Positive See Note 01/23/2021 10:39 EDT [facility] Comment: Reference Range for Hep B Surface Ab, Qual: Unvaccinated: ??Negative Vaccinated: ??Positive Blood VENOUS BLOOD / Unknown 01/22/2021 13:59 EDT 01/22/2021 21:17 EDT us Provider Outr Resulting Lab CHEMISTRY & BLOOD GA S ORDERABLES Final Result Performing Organization Address [facility]/ZIP Co de Phone Number [facility] [address] [place] [address] * MEASLES IGG AB (01/22/2021 13:59 EDT) Measles IgG Ab Positive See Note 01/23/2021 10:29 EDT [facility] Comment:Presence of detectab le measles virus IgG antibodies. Blood VENOUS BLOOD / Unknown 01/22/2021 13:59 EDT 01/22/2021 21:17 EDT us Provider Outr Resulting Lab IMMUNOLOGY AND SEROL OGY ORDERABLES Final Result [facility] [address] [place] [address] * VARICELLA IGG ANTIBODY (01/22/2021 13:59 EDT) Varicella IgG Ab Positive See Note 01/23/2021 10:29 EDT [facility] Comment:Presence of detectab le Varicella Zoster virus IgG antibodies. Blood VENOUS BLOOD / Unknown 01/22/2021 13:59 EDT 01/22/2021 21:17 EDT us Provider Outr Resulting Lab IMMUNOLOGY AND SEROL OGY ORDERABLES Final Result Performing Organization Address [facility] Co de Phone Number [facility] [address] [place] [address] * MUMPS ANTIBODY IGG (01/22/2021 13:59 EDT) Mumps Antibody IgG Positive See Note 01/23/2021 10:30 EDT [facility] Comment:Presence of detectab le mumps virus IgG antibodies. Blood VENOUS BLOOD / Unknown 01/22/2021 13:59 EDT 01/22/2021 21:17 EDT us Provider Outr Resulting Lab IMMUNOLOGY AND SEROL OGY ORDERABLES Final Result Performing Organization Address [facility] Co de Phone Number [facility] [address] [place] [address] * RUBELLA IGG ANTIBODY (01/22/2021 13:59 EDT) Rubella IgG Ab Positive See Note 01/23/2021 10:30 EDT [facility] Comment:Positive for IgG ant ibodies to Rubella virus. Blood VENOUS BLOOD / Unknown 01/22/2021 13:59 EDT 01/22/2021 21:17 EDT us Provider Outr Resulting Lab CHEMISTRY & BLOOD GA S ORDERABLES Final Result Performing Organization Address [facility] Co de Phone Number [facility] [address] [place] [address] documented in this encounter Visit Diagnoses Not on filedocumented in this encounter Care Teams Auto Mechanic Apprentice Relationship Specialty Start Date End Date Maryanne Buckley PA-C PCP - General 05/09/14 documented as of this encounter
--- OUTSIDE RECORDS SUMMARY | 2024-11-10 18:52 | XMS_ITS | Encounter Summary ---
Author Organization [facility] Address [address] [place] [address] Care Team Providers Care Crate Liner Name Role Phone Marcio Keshia Torres PA-C Primary Care Provider + Encounter Details Date Type Department Care Team ([facility] st Contact Info) Description 02/21/2015 Results Only [facility] [phone] Harmeet Callaway MD [address] [facility] [address] [place] [address] Social History Tobacco Use Types [...] ? ADAM CARVER ? Accession #: ? [id number] ? : ? 1970 (Age: 44) ??F [...] mucosa with no specific pathologic features. Comment: Sleeve Setter sections of this case were reviewed at [...] performance characteristics have been determined by [facility]. ??The positive and negative controls worked [...] Jules 02/23/2015 10:22 AM End of Report [facility] 02/21/2015 20:4 0 EDT 02/22/2015 20:40 EDT us Harmeet Callaway MD PATHOLOGY ORDERABLES Final Resul t [facility] [address] [place] [address] documented in this encounter Visit Diagnoses Not on filedocumented in this encounter Care Teams Crate Liner Relationship Specialty Start Date End Date Keshia Buckley PA-C PCP - General 05/09/14 documented as of this encounter
--- OUTSIDE RECORDS SUMMARY | 2024-11-10 18:52 | XMS_ITS | Encounter Summary ---
Author Organization [facility] Address [address] [place] [address] Care Team Providers Care Director Of Assisted Living Name Role Phone Maryanne Buckley PA-C Primary Care Provider + Encounter Details Date Type Department Care Team (Late st Contact Info) Description 06/01/2024 Lab Requisition [facility] Pathology & Laboratory Medicine - [address] [id number] Outr Resulting Lab, Provider Social History Tobacco [...] 352 mg/dL 06/02/2024 10:04 EDT [facility] Blood VENOUS BLOOD / Unknown 06/01/2024 12:10 EDT 06/01/2024 21:55 EDT us Provider Outr Resulting Lab CHEMISTRY & BLOOD GA S ORDERABLES Final Result [facility] [address] [place] [address] documented in this encounter Visit Diagnoses Not on filedocumented in this encounter Care Teams Director Of Assisted Living Relationship Specialty Start Date End Date Maryanne Buckley PA-C PCP - General 05/09/14 documented as of this encounter
--- OUTSIDE RECORDS SUMMARY | 2024-11-10 18:52 | XMS_ITS | Clinical Summary ---
Author Organization [facility] Address [facility] [place] [address] Care Team Providers Care Purchasing Supervisor Name Role Phone Maryanne Buckley Primary Care Provider +1- [phone] Allergies Active Allergy Reactions Criticality Noted Date [...] hours. Max daily dose: 200 mg Active lisinopriL (Prinivil;Zestril) 5 mg Tablet Take 5 mg by mouth daily. Active fexofenadine (Lesley) 60 mg tablet Take 180 mg by mouth daily. Active cloNIDine (Catapres) 0.1 mg tablet Take 0.1 mg by mouth nightly. 07/05/2024 Active ondansetron ODT (Zofran-ODT) 4 mg disintegrating tablet Take 1 tablet by mouth every 8 hours as needed for Nausea. 06/30/2024 Active simvastatin (Zocor) 20 mg tablet Take 20 mg by mouth nightly. 04/28/2024 Active sucralfate (Carafate) 1 gram tablet TAKE 1 TABLET BY MOUTH 4 TIMES DAILY (MORNING, NOON, EARLY EVENING, AND BEDTIME) 06/02/2024 Active clonazePAM (KlonoPIN) 0.5 mg tablet Take 0.5 mg by mouth 2 times daily as needed. Active levothyroxine (Synthroid) 100 mcg tablet Take 1 tablet by mouth Daily at Noon. 07/07/2024 Active eszopiclone (Lunesta) 3 mg tablet Take 3 mg by mouth daily. Active busPIRone (Buspar) 7.5 mg tablet Take 1 tablet by mouth Daily at Noon. 08/09/2024 Active omeprazole (PriLOSEC) [address] capsule Take 1 capsule by mouth daily for 90 days. 30 capsule 2 09/08/2024 12/07/2024 Active prochlorperazine (Compazine) 5 mg tablet Take 1 tablet by mouth every 6 hours as needed for Nausea. 15 tablet 09/08/2024 Active ondansetron ODT (Zofran-ODT) 4 mg disintegrating tablet Take 1 tablet by mouth every 8 hours as needed for Nausea. 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 NSTEMI (non-ST elevated myocardial infarction) 0 10/31/2019 Encounters Date Type Department Care Team Description 10/25/2024 2:00 PM EST Office [place] [phone] Aracelis Roberson, MAX Surgery follow-up 10/25/2024 Travel 10/11/2024 4:45 PM EST Ancillary Procedure Radiology Library at [facility] [place] [phone] Chaparro Mello MD 10/11/2024 Interpretation Only Radiology Library at [facility] [place] [phone] Chaparro Mello MD 09/24/2024 [place]phone [place] [phone] Anthony Escalante MD Appointment 09/13/2024 Telephone [place] [phone] Nathalie Deutsch MD 09/13/2024 Telephone [place] [phone] Nathalie Deutsch MD 2024 Telephone General Surgery [place] [phone] Parveen Mary MD 09/09/2024 Telephone General Surgery at [place] [phone] Mk Glasgow MD 09/07/2024 1:54 PM EST Anesthesia Event Main Operating Room [place] [phone] Jeremiah Smith MD 09/07/2024 12:46 PM EST - 09/07/2024 4:16 PM EST Surgery Main Operating Room [place] [phone] Nathalie Deutsch MD [email or web address], ANASTOMOSIS OF INTESTINE W OR WO CUTANEOUS ENTEROSTOMY (WRVU 22.11) 09/07/2024 9:51 AM EST - 09/08/2024 1:14 PM EST Hospital Encounter PACU at [place] [phone] Nathalie Deutsch MD Duodenal stricture Discharge Disposition: Home 08/16/2024 12:00 PM EST Office Visit General Surgery at [place] [phone] Nathalie Deutsch MD Duodenal stricture 08/16/2024 Travel 08/14/2024 Travel 08/13/2024 Telephone Neurosurgery at [place] [phone] Anthony Escalante MD Appointment from Last 3 Months Family History Medical History Relation Comments Coronary Artery Disease Father [place] at th e age of 42 Coronary Artery Disease Paternal Grandfather Coronary Artery Disease Paternal Grandmother Relation Status Comments Father Paternal Grandfather Paternal Grandmother Social History Tobacco Use Types Packs/Day Years Used Date Smoking Tobacco: Never Smokeless Tobacco: Never Alcohol Use Standard Drinks/Week Comments Not Currently 0 (1 standard drink = 0.6 oz pur e alcohol) Rarely [facility] Utilities Answer Date Recorded In the [...] any time in the past 12 m [facility], were you homeless or living in a usp (including now)? No 09/08/2024 IPV Inpatient Questions [...] Orientation Straight 07/08/2024 10 :03 AM EDT Last Filed Vital Signs Vital Sign Reading [...] Mass Index 25.58 09/07/2024 12:54 PM EST Plan of Treatment Health Maintenance Due Date Last Done Comments CT Colonography 1969 Colonoscopy 1969 Colorectal Cancer Screening 1969 FIT DNA 1969 FIT 1969 Sigmoidoscopy (10 year) with FIT yearly 1969 Sigmoidoscopy 1969 HIV screen 1987 Hepatitis C Screening 1987 Hepatitis B vaccine (0-59 yrs) (1) 1988 Pneumoccocal Vaccine: 50+ (1 of 2 - PCV) 1988 Tetanus/Diphtheria/Pertussis Vaccines (1 - Tdap) 1988 HPV test 1999 PAP Smear 1999 Breast Cancer Share Decision Needed 2009 Breast Cancer screening 2009 Zoster vaccine (1 of 2) 2019 Covid-19 Vaccine (1 - 2023-2 5 season) 2024 Influenza (Flu) vaccine (1 o f 1 - Influenza standard series) 05/30/2024 Advance Directive 2024 Diabetes Screening (HgbA1C o r Glucose) 09/08/2027 09/08/2024, 11/01/2019, 11/01/2019, Additional history exists Procedures Procedure Name Priority Date/Time Associated Diagnosis Comments FILM LIBRARY STORAGE ONLY CT ABDOMEN AND PELVIS Routine 10/11/2024 4:45 PM EST BASIC METABOLIC PANEL Routine 09/08/2024 1:02 AM EST CBC (WITH DIFF) Routine 09/08/2024 1:02 AM EST Upper Gi Endoscopy, Biopsy ([id number]) 09/07/2024 1:53 PM EST Duodenal stricture Lap, Diagnostic Abdomen ([id number]) 09/07/2024 1:53 PM EST Duodenal stricture Bowel To Bowel Anastomosis ([id number]) 09/07/2024 1:53 PM EST Duodenal stricture LAPAROSCOPY, DIAGNOSTIC Routine 09/07/20 24 12:36 PM EST Duodenal stricture ENTEROENTEROSTOMY ANASTOMOSIS OF INTESTINE W OR WO CUTAN ENTEROSTOMY Routine 09/07/2024 12:36 PM EST Duodenal stricture UPPER GASTROINTESTINAL ENDOSCOPY,WITH BIOPSY SINGLE OR MULTIPLE Routine 09/07/2024 12:36 PM EST Duodenal stricture from Last 3 Months Results * Film Library- Storage Only CT Abdomen & Pelvis (10/11/2024 4:45 PM EST) 10/11/2024 5:37 PM EST Narrative [facility] - 10/11/2024 5:37 PM EST This exam is auto-finalizing. It's purpose is for storage only. Chaparro Mello MD IMG FILM LIBRARY ORD ERABLES [place], [place] * (ABNORMAL) CBC (with Diff) (09/08/2024 1:02 AM EST) White Blood Cell 4.19 4.00 - 9.50 x10(3)/mc L 09/08/2024 1:23 AM [facility] Red Blood Cell 3.31(L) 4.00 - 5.21 x10(6)/mc L 09/08/2024 1:23 AM [facility] Hemoglobin 9.9(L) 11.7 - 15.5 g/dL 09/08/2024 1:23 AM [facility] Hematocrit 30.3(L) 35.7 - 45.8 % 09/08/2024 1:23 AM [facility] Mean Cell Volume 91.5 82.6 - 94.4 fL 09/08/2024 1:23 AM [facility] Mean Cell Hemoglobin 29.9 27.1 - 32.0 pg 09/08/2024 1:23 AM [facility] Mean Cell Hemoglobin Concentration 32.7 31.7 - 35.0 g/dL 09/08/2024 1:23 AM [facility] Platelet 196 145 - 357 x10(3)/mc L 09/08/2024 1:23 AM [facility] Mean Platelet Volume 9.8 7.6 - 12.9 fL 09/08/2024 1:23 AM [facility] RDW Standard Deviation 41.9 37.0 - 46.0 fL 09/08/2024 1:23 AM [facility] RDW coefficient of variation 12.5 11.5 - 14.1 % 09/08/2024 1:23 AM [facility] NRBC% auto 0.0 % 09/08/2024 1:23 AM [facility] NRBC Absolute <0.01 <0.01 x10(3)/mc L 09/08/2024 1:23 AM [facility] Neutrophil % 91.2 % 09/08/2024 1:23 AM [facility] Neutrophil Absolute (ANC) - Automated 3.82 1.70 - 6.10 x10(3)/mc L 09/08/2024 1:23 AM [facility] Lymph % 7.6 % 09/08/2024 1:23 AM [facility] Lymph Absolute 0.32(L) 0.90 - 3.20 x10(3)/mc L 09/08/2024 1:23 AM [facility] Monocyte % 1.0 % 09/08/2024 1:23 AM [facility] Monocyte Absolute 0.04(L) 0.30 - 0.90 x10(3)/mc L 09/08/2024 1:23 AM [facility] Eos % 0.0 % 09/08/2024 1:23 AM [facility] Eos Absolute <0.04 0.00 - 0.40 x10(3)/mc L 09/08/2024 1:23 AM [facility] Basophil % 0.0 % 09/08/2024 1:23 AM [facility] Baso Absolute <0.04 0.00 - 0.10 x10(3)/mc L 09/08/2024 1:23 AM [facility] Immature Gran % 0.2 % 1:23 AM [facility] Immature Gran Absolute <0.04 0.00 - 0.04 x10(3)/mc L 09/08/2024 1:23 AM [facility] Blood VENOUS BLOOD SPECIMEN / Unknown Venipuncture / Unknown 09/08/2024 1:02 AM EST 09/08/2024 1:17 AM EST Nathalie Deutsch MD HEMATOLOGY ORDERABL ES [facility] [place] [address] * (ABNORMAL) Basic Metabolic Panel (09/08/2024 1:02 AM EST) Glucose 145 65 - 199 mg/dL 09/08/2024 1:48 AM [facility] Comment:Glucose Concentratio n >=200 mg/dL plus symptoms is consistent with Diabetes Mellitus. Blood Urea Nitrogen 13 8 - 18 mg/dL 09/08/2024 1:48 AM [facility] Creatinine 0.77 0.70 - 1.20 mg/dL 09/08/2024 1:48 AM [facility] Sodium 137 135 - 145 mMol/L 09/08/2024 1:48 AM [facility] Potassium 5.0 3.5 - 5.0 mMol/L 09/08/2024 1:48 AM [facility] Chloride 105 98 - 107 mMol/L 09/08/2024 1:48 AM [facility] Carbon Dioxide 20(L) 22 - 31 mMol/L 09/08/2024 1:48 AM [facility] Anion Gap 12 5 - 15 mMol/L 09/08/2024 1:48 AM [facility] Calcium 9.2 8.5 - 10.5 mg/dL 09/08/2024 1:48 AM [facility] Est Glomerular Filtration Rate - Female 92 mL/min/1. 73 m?? 09/08/2024 1:48 AM EST [facility] Comment: This patient's estimated [...] 1:02 AM EST 09/08/2024 1:17 AM EST Nathalie Deutsch MD CHEMISTRY ORDERABLE S Performing Organization Address City/State/[facility] Co de Phone Number [facility] [place] [address] from Last 3 Months Advance Directives * Attempt Cardiopulmonary Resuscitation - Inpatient (Latest Code Status on File) Date Activated Date Inactivated Comments 09/07/2024 4:10 PM 09/08/2024 3:19 PM Question Answer Comments Code Status decision made by: Patient * Attempt Cardiopulmonary Resuscitation - Inpatient Date Activated Date Inactivated Comments 09/07/2024 1:20 PM 09/07/2024 4:10 PM Question Answer Comments Code Status decision made by: Patient * Attempt Cardiopulmonary Resuscitation - Inpatient Date Activated Date Inactivated Comments 09/07/2024 12:34 PM 09/07/2024 1:20 PM Question Answer Comments Code Status decision made by: Patient * Full Code Date Activated Date Inactivated Comments 10/31/2019 11:31 AM 11/01/2019 7:50 PM Question Answer Comments Does patient have capacity to make decision: Yes Care Teams Purchasing Supervisor Relationship Specialty Start Date End Date Maryanne Buckley PA [address] [place] [address] PCP - General Family Medicine 04/05/24
--- OUTSIDE RECORDS SUMMARY | 2024-11-10 18:52 | XMS_ITS | Referral Summary ---
Author Organization [facility] Address [address] [place] [address] Care Team Providers Care Administrative Associate Name Role Phone Maryanne Buckley PA-C Primary Care Provider + Social History Tobacco Use Types Packs/Day Years [...] file Plan of Treatment Not on file Insurance Care Teams Administrative Associate Relationship Specialty Start Date End Date Maryanne Buckley PA-C PCP - General 05/09/14
--- OUTSIDE RECORDS SUMMARY | 2024-11-10 18:52 | XMS_ITS | Encounter Summary ---
Author Organization [facility] Address [address] [place] [address] Care Team Providers Care Operations Project Manager Name Role Phone Maryanne Buckley PA-C Primary Care Provider + Encounter Details Date Type Department Care Team (Late st Contact Info) Description 06/01/2024 Lab Requisition [facility] Pathology & Laboratory Medicine - [address] [address] Outr Resulting Lab, Provider Social History Tobacco [...] H. Pylori Negative Negative 06/04/2024 12:08 EDT [facility] Comment:Indicates the absenc e of H. pylori stool antigen, (or the level of antigen is below that which can be detected by the assay) Feces SPECIMEN FROM RECTUM / Unknown 06/01/2024 11:45 EDT 06/01/2024 22:24 EDT Narrative [facility] - 06/04/2024 12:08 EDT New Liaison XL testing method used as of 07/21/2023 us Provider Outr Resulting Lab MICROBIOLOGY - GENER AL ORDERABLES Final Result [facility] [address] [place] [address] documented in this encounter Visit Diagnoses Not on filedocumented in this encounter Care Teams Operations Project Manager Relationship Specialty Start Date End Date Maryanne Buckley PA-C PCP - General 05/09/14 documented as of this encounter
--- OUTSIDE RECORDS SUMMARY | 2024-11-10 18:52 | XMS_ITS | Encounter Summary ---
Author Organization [facility] [place] [address] Care Team Providers Care Sales Contracts Analyst Name Role Phone Maryanne Buckley Primary Care Provider +1- [phone] Encounter Details Date Type Department Care Team (Latest Contact Info) Description 08/16/2024 Travel Social History Tobacco Use Types Packs/Day [...] on filedocumented in this encounter Care Teams Sales Contracts Analyst Relationship Specialty Start Date End Date Maryanne Bucklye PA [address] [place] [address] PCP - General Family Medicine 04/05/24 documented as of this encounter
--- OUTSIDE RECORDS SUMMARY | 2024-11-10 18:52 | XMS_ITS | Encounter Summary ---
Author Organization [facility] Address [address] [place] [address] Care Team Providers Care Rn Telephonic Name Role Phone Maryanne Buckley PA-C Primary Care Provider + Encounter Details Date Type Department Care Team (Late st Contact Info) Description 04/21/2024 Lab Requisition [facility] Pathology & Laboratory Medicine - [address] [address] Britton Granado MD [address] [place] [address], [address] [place], [place] [id number] Unspecified abdominal pain Social History Tobacco Use [...] explore management options, if applicable. 04/23/2024 12:16 [facility] Final Diagnosis A. DUODENUM, BIOPSY: - Enteric mucosa with features suggestive of peptic duodenitis. - Deeper levels examined. - See comment. B. STOMACH, ANTRUM, BIOPSY: - Antral-type mucosa with chemical (reactive) gastropathy. C. STOMACH, BODY, BIOPSY: - Oxyntic-type mucosa with no significant diagnostic abnormality. D. COLON, RANDOM, BIOPSY: - Colonic mucosa with no significant diagnostic abnormality. 04/23/2024 12:16 [facility] Diagnosis Comment The history of a duodenal mass is noted. If clinical concern for an unsampled lesion persist, re-biopsy may be considered. 04/23/2024 12:16 [facility] Attestation By the signature below, the attending physician certifies that they have 1) personally conducted a gross and/or microscopic examination of the described specimen(s), and/or personally interpreted the results of laboratory testing of the described specimen(s), and 2) personally rendered or confirmed the above diagnosis. 04/23/2024 12:16 [facility] at [address]16 Clinical History Anemia and colitis, duodenal mass, diverticulosis 04/23/2024 12:16 [facility] Gross Description A. [...] Kathy Cortez 04/22/2024 6:31 04/23/2024 12:16 EDT [facility] Performing Lab [facility] 04/23/2024 12:16 EDT [facility] Scanned Images 04/23/2024 12:16 EDT [facility] Tissue COLON STRUCTURE / Unknown 04/21/2024 10:33 EDT 04/21/2024 17:44 EDT Tissue specimen (specimen) STOMACH STRUCTURE / Unknown 04/21/2024 10:33 EDT 04/21/2024 17:44 EDT Tissue specimen (specimen) STOMACH STRUCTURE / Unknown 04/21/2024 10:33 EDT 04/21/2024 17:44 EDT Tissue specimen (specimen) COLON STRUCTURE / Unknown 04/21/2024 10:33 EDT 04/21/2024 17:44 EDT us Britton Granado MD PATHOLOGY ORDERABLES Final Resu lt [facility] [address] [place], [place] [id number] documented in this encounter Visit Diagnoses Diagnosis Unspecified abdominal pain documented in this encounter Care Teams Rn Telephonic Relationship Specialty Start Date End Date Maryanne Buckley PA-C PCP - General 05/09/14 documented as of this encounter
--- OUTSIDE RECORDS SUMMARY | 2024-11-10 18:52 | XMS_ITS | Encounter Summary ---
Author Organization [facility] Address [address] [place] [address] Care Team Providers Care Report Specialist Name Role Phone Maryanne Buckley PA-C Primary Care Provider + Encounter Details Date Type Department Care Team (Latest Contact Info) Description 02/21/2015 17:55 EDT - 02/21/2015 23:59 EDT Hospital Encounter [address] [address] Unknown, Provider, MD Discharge Disposition: Home or [...] on filedocumented in this encounter Care Teams Report Specialist Relationship Specialty Start Date End Date Maryanne Buckley PA-C PCP - General 05/09/14 documented as of this encounter
--- OUTSIDE RECORDS SUMMARY | 2024-11-10 18:52 | XMS_ITS | Clinical Summary ---
Author Organization [facility] Address [address] [place] [address] Care Team Providers Care Fruit Or Nut Farm Worker Name Role Phone Maryanne Buckley PA-C Primary [...] 3-dose series) 09/12 COVID-19 Vaccine ( season) 2024 Insurance [facility] Care Teams Fruit Or Nut Farm Worker Relationship Specialty Start Date End Date Maryanne Buckley PA-C PCP - General 05/09/14
--- OUTSIDE RECORDS SUMMARY | 2024-11-10 18:52 | XMS_ITS | Encounter Summary ---
Author Organization Count Includes [facility] Address [facility] [place] [address] Care Team Providers Care Gis Web Developer Name Role Phone Maryanne Buckley Primary Care Provider [phone]- [phone] Encounter Details Date Type Department Care Team (Late st Contact Info) Description 09/09/2024 Telephone [place] [id number] Mk Glasgow MD [facility] [address] Social History Tobacco Use Types Packs/Day Years Used Date Smoking Tobacco: Never Smokeless Tobacco: Never Alcohol Use Standard Drinks/Week Comments Not Currently 0 (1 standard drink = 0.6 oz pur e alcohol) Rarely [facility] Utilities Answer Date Recorded In the past 12 months has [employer], gas, oil, or water [employer] threatened to shut off services in your [...] any time in the past 12 m [facility], were you homeless or living in a longterm (including now)? No 09/08/2024 DH IPV Inpatient [...] encounter Miscellaneous Notes * Telephone Encounter - Mk Glasgow MD - 09/09/2024 1:23 PM EST Brief telephone note ID: 53-year-old female recently status post laparoscopic loop gastrojejunostomy (Get 09/07/24) in the setting of duodenal stenosis. Jaclyn calls into clinic today regarding some nausea she has been struggling with since getting home yesterday. In brief she notes that today she had 2 bouts of emesis and has been struggling with nausea largely since she got home. She notes that it seemed to gotten worse after the drive and is unsure if she got motion sick at all. She notes that her emesis was not bloody, but describes it as somewhat thick and brown/green in color. She notes that she has been doing pretty well keeping thin/clear liquids down without any issue despite this nausea. She denies any fevers or chills. She deniesany abdominal pain. She notes that her incisions look exactly as they did when she left, and deniesany drainage or redness around the incisions. She notes that she has not really passed much flatus but feels like the urge is getting there. With respect to antiemetics she was sent home with Compazine which she feels like has not offered her any relief. She did have 1 leftover Zofran from a previous prescription which she took with more relief. We discussed that overall this sounds like a bit of an ileus/gastroparesis type picture at the moment. Importantly she is otherwise feeling well and does not have any overt signs of something more ominous such as fevers chills elevated heart rate, etc. She is most hopeful for a prescription for Zofran to see if this offers her some ongoing relief. I discussed that I be happy to send her a prescription for Zofran to her nearest pharmacy. We also discussed staying on a clear liquid diet for another 48 hrs. Importantly, we discussed her keeping close contact with us especially if she develops fevers, chills, abdominal pain/distension, or if the nausea/vomiting is worsening or changing in character to something bloody for example. She was very understanding of this, and appreciative of us calling back. I will update Dr. Deutsch as well to confirm the above plan. Mk Glasgow MD documented in this encounter Plan of Treatment Not on file documented as of this encounter Visit Diagnoses Not on filedocumented in this encounter Care Teams Gis Web Developer Relationship Specialty Start Date End Date Maryanne Buckley PA [address] [place] [address] PCP - General Family Medicine 04/05/24 documented as of this encounter
--- OUTSIDE RECORDS SUMMARY | 2024-11-10 18:52 | XMS_ITS | Encounter Summary ---
Author Organization [facility] Address [address] [place] [address] Care Team Providers Care Cafe Associate Name Role Phone Maryanne Buckley PA-C Primary Care Provider + Encounter Details Date Type Department Care Team (Late st Contact Info) Description 08/09/2024 Lab Requisition [facility] Pathology & Laboratory Medicine - [address] [address] Outr Resulting Lab, Provider Social History Tobacco [...] Procedure Name Priority Date/Time Associated Diagnosis Comments ESTRADIOL, ADULTS Routine 08/09/2024 9:25 EST documented in this encounter Results * ESTRADIOL, ADULTS (08/09/2024 9:25 EST) Estradiol 13 See Note pg/mL 08/09/2024 22:12 EST [facility] Comment: NOTE: FEMALE REFERENCE RANGES: MENSTRUATING ? By cycle day relative to LH peak Follicular ?(-12 to -4 days) ??20-144 pg/mL Midcycle ?(-3 to +2 days) ?? 64-357 pg/mL Luteal ?(+4 to +12 days) ??56-214 pg/mL POSTMENOPAUSAL ?<32 pg/mL *Cross reactivity with Fulvestrant could lead to a falsely elevated estradiol result in patients treated with this drug. Blood VENOUS BLOOD / Unknown 08/09/2024 9:25 EST 08/09/2024 21:47 EST us Provider Outr Resulting Lab CHEMISTRY & BLOOD GA S ORDERABLES Final Result [facility] [address] [place] [address] documented in this encounter Visit Diagnoses Not on filedocumented in this encounter Care Teams Cafe Associate Relationship Specialty Start Date End Date Maryanne Buckley PA-C PCP - General 05/09/14 documented as of this encounter
--- OUTSIDE RECORDS SUMMARY | 2024-11-10 18:52 | XMS_ITS | Encounter Summary ---
Author Organization [facility] Address [address] [place] [address] Care Team Providers Care Open Hearth Laborer Name Role Phone Maryanne Buckley PA-C Primary Care Provider + Encounter Details Date Type Department Care Team (Latest Contact Info) Description 05/09/2014 9:33 EDT - 05/09/2014 23:59 EDT Hospital Encounter [address] [address] Unknown, Provider, MD Discharge Disposition: Home or [...] Code Departure Means Destination Home or Self Senior Care documented in this encounter Plan of Treatment Not on file documented as of this encounter Visit Diagnoses Not on filedocumented in this encounter Care Teams Open Hearth Laborer Relationship Specialty Start Date End Date Maryanne Buckley PA-C PCP - General 05/09/14 documented as of this encounter
--- OUTSIDE RECORDS SUMMARY | 2024-11-10 18:53 | XMS_ITS | Encounter Summary ---
Author Organization [facility] [address] Care Team Providers Care Agricultural Economist Name Role Phone Maryanne Buckley Primary Care Provider +1- [phone] Reason for Visit * Consultation (Routine) - Closed Specialty Diagnoses / Procedures Referred By Carlito wolfe Referred To Contact Neurosurgery Diagnoses Routine general medical examination at a health care facility [facility] Etelvina Dan, SALES AND SERVICE REPRESENTATIVE [address] [place] [address] [facility] Neuro[facility] [address] [place] [id number] Referral ID Status Reason Start Date Expiration Date V isits Requested Visits Authorized [id number] Closed Consult, Test & Treat PCP Updated and/or Approved 03/22/2024 03/22/2025 6 6 Encounter Details Date Type Department Care Team (Latest Contact Info) Description 03/23/2024 11:00 AM EDT TH Visit (TeleHealth) [place] [address] Anthony Escalante MD [facility] [place] [address] 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] Social History Tobacco [...] AM EDT documented as of this encounter Progress Notes [...] documented in this encounter Plan of Treatment Scheduled Referrals Name Type Priority Associated Diagnoses Orde r Schedule Referral to Neurosurgery Outpatient Referral Routine Routine general medical examination at a health care facility Ordered: 04/05/2024 documented as of this encounter Visit Diagnoses Diagnosis 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
--- OUTSIDE RECORDS SUMMARY | 2024-11-10 18:53 | XMS_ITS | Encounter Summary ---
Author Organization [facility] [place] [address] Care Team Providers Care Egg Pasteurizer Name Role Phone Maryanne Buckley Primary Care Provider [phone] Reason for Visit * Auth/Cert Specialty Diagnoses / Procedures Referred By Contsabrina t Referred To Contact Diagnoses NSTEMI (non-ST elevated myocardial infarction) postive troponin Procedures EMERGENCY IPI Referral ID Status Reason Start Date Expiration Date Visits Re quested Visits Authorized [id number] 1 1 Encounter Details Date Type Department Care Team (Late st Contact Info) Description 11/01/2019 7:30 AM EST - 11/01/2019 8:30 AM EST [place] [address] Darnell Macias MD [facility] [place] [address] CARDIAC CATHETERIZATION Social History Tobacco Use Types [...] Jaclyn Carver Patient Age: 49 y.o. Language: Pashto Race: White Ethnicity: Not nor Admit date: [...] hypothyroidism, migraines and anxiety/depression [facility] worsening heart burn, nausea and malaise. ?? She reports that she was at work yesterday afternoon when felt sudden onset of nausea at ~3 pm. Epigastric pain soon thereafter radiating to her back. Thought that it was GERD given her history. Leftwork. Pain and nausea progressively worse. + diaphoresis and reported feeling hot. No palpitations.Dizziness with standing. Went to ER. Lolifran initially the most helpful. Pain in epigastrum, low chest slowly resolved. Currently chest pain free. ?? Family history positive. Father of an UT at the age of 42. ?? WBC [...] levothyroxine, lisinopril, pantoprazole Hospital Course: Chest pain, UT ruled out, possibly representing non-cardiac chest pain vs unstable angina Troponin elevation represents myocardial injury not NSTEMI The patient was admitted to [facility] for telemetry monitoring. One set of biomarkers was positive at the outside hospital though serial biomarkers at our facility were negative. Thus, she was initiallymanaged as an NSTEMI with DAPT and a heparin infusion. Patient was taken to the label paster due to her strong family history and [...] that the medications be sent to the [facility] and this was called in for [...] appointments: During 8am-5pm Friday through Friday call [phone] to speak with a nurse in the cardiology clinic All other times call [phone] and ask to speak to the fixture relamper events solutions consultant. Return to work: One week Driving: No driving for 48 hours after catheterization. Follow up Appointments: PCP OMAR Rea [phone] to see you on Nov 08 at [...] appointments: During 8am-5pm Friday through Friday call [phone] to speak with a nurse in the cardiology clinic All other times call [phone] and ask to speak to the fixture relamper events solutions consultant. Return to work: One week Driving: No driving for 48 hours after catheterization. Follow up Appointments: PCP OMAR Rea [phone] to see you on Nov 08 at 945 am. Cardiology to see you as needed Home oxygen therapy: N/A Arrangements for VNA/home care: none documented in this encounter Medications at Time of Discharge Medication Sig Dispensed Refills Start Date End Date escitalopram (Lexapro) 20 mg Tablet Take 30 mg by mouth daily. SUMAtriptan (Imitrex) 100 mg Tablet Take 100 mg by mouth as needed for Migraine. Initial dose: 25 mg, 50 mg, or 100 mg (take with fluids). May repeat dose after 2 hours. Max daily dose: 200 mg lisinopriL (Prinivil;Zestril) 5 mg Tablet Take 5 mg by mouth daily. aspirin EC 81 mg Tablet, Delayed Release (E.C.) Take 1 tablet by mouth daily. 30 tablet 3 11/02/2019 08/16/2024 atorvastatin (Lipitor) 40 mg Tablet Take 1 tablet by mouth every evening. 90 tablet 3 11/01/2019 08/16/2024 clonazePAM (KlonoPIN) 0.25 mg Tablet, Rapid Dissolve Take 0.25 mg by mouth 2 times daily as needed. 08/16/2024 omeprazole (PriLOSEC) 20 mg Capsule, Delayed Release(E.C.) Take 20 mg by mouth daily. 08/16/2024 levothyroxine (Synthroid) 75 mcg Tablet Take 75 mcg by mouth daily. 08/16/2024 cholecalciferol, Vitamin D3, (Vitamin D3) 400 unit Tablet Take 400 Units by mouth daily. 08/16/2024 cetirizine (ZyrTEC) 10 mg Tablet Take 10 mg by mouth daily. 08/16/2024 documented as of this encounter Progress Notes [...] Progress Note Patient Name: Jaclyn Carver Service: BUSINESS DEAN / PA Responsible Attending: Asa Wiseman MD Reason for continued hospitalization: Awaiting cardiac catherization Telemetry monitoring Active Problems: Active Hospital Problems Diagnosis ??? NSTEMI (non-ST elevated myocardial infarction) Resolved Hospital Problems No resolved problems to display. Interval History: Patient has returned from the label paster and was found to have nonobstructive coronary [...] chest pain who went to the label paster today and was found to have nonobstructive coronary artery disease. Stable for discharge home this afternoon. Plan: Nonobstructive coronary artery disease Patient does not smoke Home today No changes to home medications Given letter to return to work on 11/08/2019 Please see D/C summary for details Full Code Patient discussed with Dr. Wiseman. OMAR Louise 11/01/2019 Pager [phone] OMAR ONEILL 11/01/2019 Cardiology Attending Note I [...] MD, FACP, FACC Section of Cardiovascular Medicine [facility] [employer] resource adviser [facility] This patient meets or has met medical criteria to require an inpatient level of care, i.e. a minimum of two midnights in the hospital with multiple complex problems. * Karley Hagen PA - 11/01/2019 11:18 AM EST Images from the original note were not included. Formerly [facility] [place] [address] [place] [address] OMAR House November 01, 2019 Jaclyn Carver [address] [place] [phone] Ms. Ball may return to work on [...] hypothyroidism, migraines and anxiety/depression who presented to [facility] on 10[facility]30/19 of worsening heart burn, [...] free. Family history positive. Father of an UT at the age of 42. WBC 8.7 [...] of Onset ??? Coronary Artery Disease Father UT at the age of 42 ??? Coronary [...] file Gets together: Not on file Attends gnosticist service: Not on file Active member of [...] on file Social History Narrative Works at [employer] (Boyfriend Joao Stringer) 1 child REVIEW OF [...] hypothyroidism, migraines and anxiety/depression who presented to [facility] on 10/30/19 of worsening heart burn, nausea and malaise. Noted premature family history of disease with father having a fatal UT at the age of 42. 2nd troponin [...] updated the patient. 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 Living Situation:Lives in a 1 story home with her boyfriend Joao Stringer and his brother Karely Stringer. Physical address is [address] [place] [address] [address] [facility] [address] Supports: her boyfriend Joao Srtinger. Assessment: Patient with no apparent RNCM/SW needs at this time. No housing, transportation, insurance, resources concerns identified at this time. Supports in place to achieve a safe post-hospital transition. No identified barriers to accessing necessary care and/or follow-up after discharge. Plan: Patient to d/c to home via boyfriend when medically ready. credentialing analyst/Reflow Operator will continue to follow patient???s progress and remain available if situation changes for coordination of care, psychosocial support and/or discharge planning. Joao Bah RN Pager [phone] * Brief Op Note - Darnell Macias MD - 11/01/2019 8:45 AM EST Preliminary Cardiac Catheterization Procedure Note: Patient Name: Jaclyn Carver : [id number] MR#: [id number] Case Date: 11/01/2019 Yarn Wrapper: Surgeon(s) and Role: * Darnell Macias MD [...] Review Outcome: Ongoing (Interventions Implemented as Appropriate) 10/31/19174810/31/192024 Plan of Care Review Progress no change [...] bradycardic. Heparin gtt continued. 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 Call micheel in reach Surveillance [continuous indirect monitoring]: Hourly [...] (Interventions Implemented as Appropriate) 10/31/19 12110/31/19 1600 Safety Interventions Isolation Precautions -- standard [...] Win ? (Age): 1970(49y) Med Rec#: ? [id number] ?Sex: ?F ? Site Loc: ? [facility] ?Ht / Wt: ??162(cm)/63(kg) Pt. Loc: ?Adult Floor ? BSA: ?1.67 Study Date: ?? 11/01/2019 ?Pt. Type: Inpatient Tape: ? Referring: Asa Wiseman ([id number]) Referring: MIKE Reading: Joaquin Davison ([id number]) Pipe Line Repairer: Kassidy Willard Diagnosis: *Non-ST elevation (NSTEMI) myocardial [...] Vmax ?0.66 ? m/sec ? MV deceleration fgde615.6 ?msec ? MV A-wave Vmax ?0.54 ? [...] ? Mid-Inferior ?Normal ? Mid-Inferoseptal ?Normal ? [place]-Septal ? Normal ? [place]-Anterior ? Normal ? [place]-Lateral ?Normal ? [place]-Inferior ? Normal ? [place]-Tip ?Normal ? This report has been electronically signed by: Joaquin Davison MD ? 11/01/2019 09:52:50 Images reviewed and interpretation verified [facility] Cardiac Ultrasound Laboratory Procedure Note Joaquin Davison MD - 11/01/2019 Procedure: Transthoracic Echocardiogram Patient: MEHUL Win (Age): 1970(49y) Med Rec#: [id number] Sex: F Site Loc: [facility] Ht / Wt: 162(cm)/63(kg) Pt. Loc: Adult Floor BSA: 1.67 Study Date: 11/01/2019 Pt. Type: Inpatient Tape: Referring: Asa Wiseman ([id number]) Referring: MIKE Reading: Joaquin Davison ([id number]) Pipe Line Repairer: Kassidy Willard Diagnosis: *Non-ST elevation (NSTEMI) myocardial [...] MV E-wave Vmax 0.66 m/sec MV deceleration ruzd647.6 msec MV A-wave Vmax 0.54 m/sec MV [...] Normal Mid-Posterolateral Normal Mid-Inferior Normal Mid-Inferoseptal Normal [place]-Septal Normal [place]-Anterior Normal [place]-Lateral Normal [place]-Inferior Normal [place]-Tip Normal This report has been electronically signed by: Joaquin Davison MD 11/01/2019 09:52:50 Images reviewed and interpretation verified [facility] Cardiac Ultrasound Laboratory Asa Wiseman MD ECHO ORDERABLES * CARDIAC CATHETERIZATION (11/01/2019 8:45 AM EST) Anatomical Region Laterality Modality Other Narrative 11/01/2019 8:59 AM EST ?[facility] ? Cardiac Catheterization/Intervention Report ? Patient Name: Mehul, Jaclyn J. ? Procedure Date: 11/01/2019 ? A #: [id number] ? Primary Physician: Darnell Macias ? Case #: [id number] ? File Name: [id number] ? Catheterization Order Number: [id number] ? [facility] ? Final Report [place], [place] ? Patient Name: ? Jaclyn J. Mehul ? ID#: ?[id number] ? : ?1970 ? Procedure Date: ? November 01, 2019 ? Case #: ? [id number] ? Room: ? 1 ? Case Physician: [...] was Urgent. The indication for ?the label paster visit is ACS less than or equal [...] angiography and left heart ?catheterization. ? Darnell Macias M.D. ? Electronically Signed by: Darnell Macias M.D. ? Report Finalized: 11/01/2019 ??08:54 ? Procedure Note Darnell Macias MD - 11/01/2019 [facility] Cardiac Catheterization/Intervention Report Patient Name: Jaclyn Carver Procedure Date: 11/01/2019 A #: [id number] Primary Physician: Darnell Macias Case #: [id number] File Name: [id number] Catheterization Order Number: [id number] [facility] FinalReport [place], [place] Patient Name: Jaclyn Carver ID#:[id number] :1970 Procedure Date: November 01, 2019 Case [...] patientwas designated as ASA Class III. The [facility] clinical frailty scale is 2:Well. Diagnostic Tests: Electrocardiography: EKG was assessed by ECG. EKG was Abnormal. EKG showed other abnormality. Medications Prior to Procedure: ASA and Statin. Indications for Diagnostic Cath: The priority of the diagnostic procedure was Urgent. The indicationfor the label paster visit is ACS less than or equal [...] units of heparin were administered. A total [id number] of Omnipaque were opened, 50cc of Omnipaque were administered mmr85mb of Omnipaque were wasted. Radiation: Fluoro time [...] (Bezet) 441 ms MUSE SYSTEM Calculated P [place] 66 degrees MUSE SYSTEM Calculated R [place] 76 degrees MUSE SYSTEM Calculated T [place] 78 degrees MUSE SYSTEM INTERPRETATION Sinus bradycardia Baseline wander Possible ST elevation, consider early repolarization , pericarditis, or injury When compared with ECG of 31-OCT-2019 11:30, No significant change was found Confirmed by Blake Sr MD ([id number]) on 11/01/2019 4:08:17 PM MUSE SYSTEM 11/01/2019 6:24 AM EST 11/01/2019 4:08 PM EST Asa Wiseman MD ECG ORDERABLES Performing Organization Address [facility] de Phone Number MUSE SYSTEM * Heparin (unfractionated) Level (11/01/2019 4:54 AM EST) [facility] UF Heparin 0.34 IU/mL [facility] [...] MD HEMATOLOGY ORDERAB LES Performing Organization Address [facility] de Phone Number [facility] [place] [address] * Differential, Automated (11/01/2019 4:54 AM EST) Pathologist [facility] Neutrophil % 62.9 % [facility] Neutrophil Absolute 3.88 1.70 - 6.10 x10(3)/[facility] Lymph % 24.6 % [facility] Lymphocytes Abs 1.5 0.9 - 3.2 x10(3)/[facility] Monocyte % 8.3 % [facility] Monocyte Abs 0.5 0.3 - 0.9 x10(3)/[facility] Eos % 2.9 % [facility] Eosinophils Abs 0.2 0.0 - 0.4 x10(3)/[facility] Basophil % 1.1 % [facility] Baso Absolute 0.1 0.0 - 0.1 x10(3)/[facility] Immature Gran % 0.20 % [facility] Comment: Immature granulocytes(IG's)percentage and absolute count will include metamyelocytes, myelocytes, and promyelocytes. Blood smears from CBCs yielding IG's will be scanned manually for concordance. If this scan disagrees with the automated IG or if promyelocytes are noted, a manual differential will be performed. Immature Gran Absolute 0.01 0.00 - 0.04 x10(3)/[facility] Blood specimen (specimen) 11/01/2019 4:54 AM EST 11/01/2019 5:02 AM EST Narrative Resulting Agency Comment Spec In Lab Kerri NELSON HEMATOLOGY ORDERABLE S Performing Organization Address City/State/[facility] Co de Phone Number [facility] [place] [address] * (ABNORMAL) Hemogram (11/01/2019 4:54 AM EST) White Blood Cell 6.2 4.0 - 9.5 x10(3)/mc L [facility] Red Blood Cell 3.89(L) 4.00 - 5.21 x10(6)/mc L [facility] Hemoglobin 11.2(L) 11.7 - 15.5 gm/dL [facility] Hematocrit 34.2(L) 35.7 - 45.8 % [facility] Mean Cell Volume 87.9 82.6 - 94.[address] [facility] Mean Cell Hemoglobin 28.8 27.1 - 32.0 pg [facility] Mean Cell Hemoglobin Concentration 32.7 31.7 - 35.0 gm/dL [facility] Platelet 249 145 - 357 x10(3)/mc L [facility] RDW Standard Deviation 44.1 37.0 - 46.0 [facility] RDW coefficient of variation 13.6 11.5 - 14.1 % [facility] Mean Platelet Volume 10.5 7.6 - 12.9 [facility] NRBC% auto 0.0 % [facility] NRBC Absolute 0.000 0.000 - 0.000 x10(3)/mc L [facility] Blood specimen (specimen) 11/01/2019 4:54 AM EST 11/01/2019 5:02 AM EST Narrative Resulting Agency Comment Spec In Lab Kerri NELSON HEMATOLOGY ORDERABLE S Performing Organization Address [facility]/ZIP Co de Phone Number [facility] [place] [address] * Magnesium (11/01/2019 4:54 AM EST) Magnesium 0.83 0.69 - 1.07 mmol/L [facility] Blood specimen (specimen) 11/01/2019 4:54 AM EST 11/01/2019 5:02 AM EST Narrative Resulting Agency Comment Spec In Lab Asa Wiseman MD CHEMISTRY ORDERABL ES Performing Organization Address [facility] Co de Phone Number [facility] [place] [address] * (ABNORMAL) BMP w/fasting Glucose (11/01/2019 4:54 AM EST) Glucose Fasting 94 65 - 99 mg/dL [facility] Comment: ?Fasting* Glucose Interpretive Criteria [...] of Diabetes Mellitus, Position Statement from the [place] Diabetes Association. ??Diabetes Care, Volume 33, Supplement 1, Sep 2009 Blood Urea Nitrogen 12 8 - 18 mg/dL [facility] Creatinine 0.50(L) 0.70 - 1.20 mg/dL [facility] Sodium 137 135 - 145 mmol/L [facility] Potassium 3.6 3.5 - 5.0 mmol/L [facility] Comment: Please note: ??Patients with WBC >100,000 may have falsely elevated Potassium levels. ??For accurate Potassium quantification in these patients send serum separator tube (gold top) for subsequent determinations. ??Contact the Clinical Chemistry Laboratory if there are any questions. Chloride 105 98 - 107 mmol/L [facility] Carbon Dioxide 21(L) 22 - 31 mmol/L [facility] Anion Gap 11 5 - 15 mmol/L [facility] Calcium 9.7 8.5 - 10.5 mg/dL [facility] Est Glomerular Filtration Rate 113 >=60 mL/min/1. 73 m?? [facility] Comment: The eGFR was calculated using the CKD-EPI equation. As with all creatinine based estimates of kidney function, eGFR values calculated with the CKD-EPI equation are not accurate in patients with acute kidney failure, extremes of body mass or the acutely ill. http://[employer]ix/[facility]kf eGFR 131 >=60 mL/min/1. 73 m?? [facility] Comment: The eGFR was calculated using the CKD-EPI equation. As with all creatinine based estimates of kidney function, eGFR values calculated with the CKD-EPI equation are not accurate in patients with acute kidney failure, extremes of body mass or the acutely ill. http://[employer]/[facility]kf Blood specimen (specimen) 11/01/2019 4:54 AM EST 11/01/2019 5:02 AM EST Narrative Resulting Agency Comment Spec In Lab Asa Wiseman MD CHEMISTRY ORDERABL ES Performing Organization Address [facility] Phone Number [facility] [place] [address] * Hepatic Function Panel (11/01/2019 4:54 AM EST) Protein, Total 6.2 6.1 - 8.0 gm/dL [facility] Albumin 3.7 3.2 - 5.2 gm/dL [facility] Aspartate Aminotransferase 10 0 - 30 unit/L [facility] Alanine Aminotransferase 7 0 - 30 unit/L [facility] Alkaline Phosphatase 53 35 - 105 unit/L [facility] Bilirubin, Total 0.2 0.2 - 1.3 mg/dL [facility] Bilirubin, Direct <0.1 0.0 - 0.3 mg/dL [facility] Blood specimen (specimen) 11/01/2019 4:54 AM EST 11/01/2019 5:02 AM EST Narrative Resulting Agency Comment Spec In Lab Asa Wiseman MD CHEMISTRY ORDERABL ES Performing Organization Address [facility] Phone Number [facility] [place] [address] * Triglyceride (11/01/2019 4:54 AM EST) Triglyceride 122 mg/dL [facility] Comment: Average Risk/Lower Risk: <150 mg/dL Borderline High Risk: 150-199 mg/dL High Risk: 200-499 mg/dL Very High Risk: >zh=758 mg/dL Blood specimen (specimen) 11/01/2019 4:54 AM EST 11/01/2019 5:02 AM EST Narrative Resulting Agency Comment Spec In Lab Asa Wiseman MD CHEMISTRY ORDERABL ES Performing Organization Address [facility] Co de Phone Number [facility] [place] [address] * HDL/Cholesterol Profile (11/01/2019 4:54 AM EST) Cholesterol, Total 167 mg/dL [facility] Comment: Lower Risk: <200 mg/dL Average Risk: 200-239 mg/dL Higher Risk: >yh=566 mg/dL HDL Cholesterol 34 mg/dL [facility] Comment: Males: ?? Higher Risk: <40 mg/dL Females: ?? HIgher Risk: <50 mg/dL Cholesterol/HDL Ratio 4.[address] [facility] Chol/HDL Interpretation See Note [facility] Comment: Lipid management should be guided by a patient? s ASCVD risk, goals and preferences. ACC/AHA Guidelines recommend high intensity statin if clinical ASCVD or LDL greater than or equal to 190 mg/dL. http://[employer]com/IBC-NWW-Cqbrtljap Measure LDL if Total Cholesterol minus HDL Cholesterol is greater than 220 mg/dL. Adults aged 40-75 with LDL 70-189 mg/dL should have their 10 year ASCVD risk estimated with the ACC/AHA ASCVD risk mechanical estimator http://tools.acc.org/PTLDX-Ikab-Eohpygggv/ Statin should be discussed if risk greater [...] MD CHEMISTRY ORDERABL ES Performing Organization Address City/[facility]/ZIP Co de Phone Number [facility] [place] [address] * LDL Cholesterol, Direct (11/01/2019 4:54 AM EST) Pathologist [facility] LDL Cholesterol, Direct 111 mg/dL [facility] Comment: Lowest Risk: <100 mg/dL Lower Risk: 100-129 mg/dL Borderline High Risk: 130-159 mg/dL High Risk: 160-189 mg/dL Very High Risk: >ot=034 mg/dL Blood specimen (specimen) 11/01/2019 4:54 AM EST 11/01/2019 5:02 AM EST Narrative Resulting Agency Comment Spec In Lab Asa Wiseman MD CHEMISTRY ORDERABL ES [facility] [place] [address] * Hemoglobin A1c (11/01/2019 4:54 AM EST) [facility] Hemoglobin A1c 5.3 4.3 - 5.6 % [facility] Comment: Reference Range: 4.3 - [...] Mellitus, Diabetes Care 2013; 36: Suppl. 1, S67-83 Estimated Average Glucose 105 mg/dL [facility] Comment: eAG equivalents for HbA1c [...] into estimated average glucose values. ??Diabetes Care 2008:31(8):8145-2722. Blood specimen (specimen) 11/01/2019 4:54 AM EST 11/01/2019 5:02 AM EST Narrative Resulting Agency Comment Spec In Lab Asa Wiseman MD CHEMISTRY ORDERABL ES [facility] [place] [address] * Heparin (unfractionated) Level (10/31/2019 11:01 PM EST) UF Heparin 0.38 IU/mL [facility] [...] MD HEMATOLOGY ORDERAB LES Performing Organization Address [facility] Co de Phone Number [facility] [place] [address] * CK (10/31/2019 11:01 PM EST) Creatine Kinase 65 0 - 160 unit/L [facility] Blood specimen (specimen) 10/31/2019 11:01 PM EST 10/31/2019 11:05 PM EST Narrative Resulting Agency Comment Spec In Lab Asa Wiseman MD CHEMISTRY ORDERABL ES Performing Organization Address [facility] Phone Number [facility] [place] [address] * Troponin (10/31/2019 11:01 PM EST) Troponin-T <0.01 0.00 - 0.00 ng/mL [facility] Comment: The 99th percentile for Troponin T is less than 0.01 ng/mL, any detectable cTnT concentration using this assay should be considered elevated. According to the third universal definition of myocardial infarction the following criteria with a clinical presentation consistent with acute myocardial ischemia meets the diagnosis for a myocardial infarction (UT). Detection of a rise and/or fall of cTnT, with at least one value greater than the 99th percentile (> or = 0.01) and with at least one of the following ?? Symptoms of ischemia ?? New or presumed new significant CD-yxojwzf-K wave (ST-T) changes or new left bundle [...] additional sample may be indicated. Reference: Third Andrews Definition of Myocardial Infarction. Journal of the [place] [employer] 2012;60:1581-98 Blood specimen (specimen) 10/31/2019 11:01 PM EST 10/31/2019 11:05 PM EST Narrative Resulting Agency Comment Spec In Lab Asa Wiseman MD CHEMISTRY ORDERABL ES Performing Organization Address [facility] de Phone Number [facility] [place] [address] * Heparin (unfractionated) Level (10/31/2019 5:19 PM EST) UF Heparin 0.34 IU/mL [facility] [...] MD HEMATOLOGY ORDERAB LES Performing Organization Address [facility] Co de Phone Number [facility] [place] [address] * CK (10/31/2019 5:19 PM EST) Creatine Kinase 72 0 - 160 unit/L [facility] Blood specimen (specimen) 10/31/2019 5:19 PM EST 10/31/2019 5:56 PM EST Narrative Resulting Agency Comment Spec In Lab Asa Wiseman MD CHEMISTRY ORDERABL ES Performing Organization Address [facility] de Phone Number [facility] [place] [address] * Troponin (10/31/2019 5:19 PM EST) Troponin-T <0.01 0.00 - 0.00 ng/mL [facility] Comment: The 99th percentile for Troponin T is less than 0.01 ng/mL, any detectable cTnT concentration using this assay should be considered elevated. According to the third universal definition of myocardial infarction the following criteria with a clinical presentation consistent with acute myocardial ischemia meets the diagnosis for a myocardial infarction (UT). Detection of a rise and/or fall of cTnT, with at least one value greater than the 99th percentile (> or = 0.01) and with at least one of the following ?? Symptoms of ischemia ?? New or presumed new significant CY-nrupezv-B wave (ST-T) changes or new left bundle [...] additional sample may be indicated. Reference: Third Andrews Definition of Myocardial Infarction. Journal of the [place] [employer] 2012;60:1581-98 Blood specimen (specimen) 10/31/2019 5:19 PM EST 10/31/2019 5:56 PM EST Narrative Resulting Agency Comment Spec In Lab Asa Wiseman MD CHEMISTRY ORDERABL ES Performing Organization Address [facility] Co de Phone Number [facility] [place] [address] * EKG 12 Lead (10/31/2019 11:30 AM EST) Ventricular rate 71 BPM MUSE SYSTEM Atrial Rate 71 BPM MUSE SYSTEM P-R Interval 144 ms MUSE SYSTEM QRS Duration 104 ms MUSE SYSTEM Q-T Interval 412 ms MUSE SYSTEM QTC Calculated (Bezet) 447 ms MUSE SYSTEM Calculated P [place] 65 degrees MUSE SYSTEM Calculated R [place] 67 degrees MUSE SYSTEM Calculated T [place] 64 degrees MUSE SYSTEM INTERPRETATION Normal sinus rhythm Intraventricul ar conduction delay Nonspecific T wave abnormality Abnormal ECG No previous ECGs available Confirmed by MD Caroline, Abhishek Gallego ([id number]) on 10/31/2019 11:52:13 AM MUSE SYSTEM 10/31/2019 11:3 0 AM EST 10/31/2019 11:52 AM EST Mk Tate MD ECG ORDERABLES Performing Organization Address [facility] de Phone Number MUSE SYSTEM * TSH (10/31/2019 10:51 AM EST) Thyroid Stimulating Hormone 1.82 0.27 - 4.20 mcIU/mL [facility] Blood specimen (specimen) Venous Draw / Unknown 10/31/2019 10:51 AM EST 10/31/2019 11:06 AM EST Narrative Resulting Agency Comment Spec In Lab Kerri NELSON CHEMISTRY ORDERABLES Performing Organization Address [facility] Co de Phone Number [facility] [place] [address] * Heparin (unfractionated) Level (10/31/2019 10:51 AM [...] MD HEMATOLOGY ORDERAB LES Performing Organization Address City/State/[facility] Co de Phone Number [facility] [place] [address] * (ABNORMAL) Differential, Automated (10/31/2019 10:51 AM EST) Neutrophil % 78.9 % [facility] Neutrophil Absolute 6.17(H) 1.70 - 6.10 x10(3)/mc L [facility] Lymph % 12.6 % [facility] Lymphocytes Abs 1.0 0.9 - 3.2 x10(3)/mc L [facility] Monocyte % 7.0 % [facility] Monocyte Abs 0.6 0.3 - 0.9 x10(3)/mc L [facility] Eos % 0.6 % [facility] Eosinophils Abs 0.0 0.0 - 0.4 x10(3)/mc L [facility] Basophil % 0.6 % [facility] Baso Absolute 0.0 0.0 - 0.1 x10(3)/mc L [facility] Immature Gran % 0.30 % [facility] Comment: Immature granulocytes(IG's)percentage and absolute count will include metamyelocytes, myelocytes, and promyelocytes. Blood smears from CBCs yielding IG's will be scanned manually for concordance. If this scan disagrees with the automated IG or if promyelocytes are noted, a manual differential will be performed. Immature Gran Absolute 0.02 0.00 - 0.04 x10(3)/mc L [facility] Blood specimen (specimen) 10/31/2019 10:51 AM EST 10/31/2019 10:59 AM EST Narrative Resulting Agency Comment Spec In Lab Kerri NELSON HEMATOLOGY ORDERABLE S [facility] [place] [address] * (ABNORMAL) Hemogram (10/31/2019 10:51 AM EST) White Blood Cell 7.8 4.0 - 9.5 x10(3)/mc L [facility] Red Blood Cell 3.82(L) 4.00 - 5.21 x10(6)/mc L [facility] Hemoglobin 11.1(L) 11.7 - 15.5 gm/dL [facility] Hematocrit 33.8(L) 35.7 - 45.8 % [facility] Mean Cell Volume 88.5 82.6 - 94.[address] [facility] Mean Cell Hemoglobin 29.1 27.1 - 32.[address] [facility] Mean Cell Hemoglobin Concentration 32.8 31.7 - 35.0 gm/dL [facility] Platelet 288 145 - 357 x10(3)/mc L [facility] RDW Standard Deviation 44.6 37.0 - 46.0 [facility] RDW coefficient of variation 13.8 11.5 - 14.1 % [facility] Mean Platelet Volume 10.4 7.6 - 12.[address] [facility] NRBC% auto 0.0 % [facility] NRBC Absolute 0.000 0.000 - 0.000 x10(3)/mc L [facility] Blood specimen (specimen) 10/31/2019 10:51 AM EST 10/31/2019 10:59 AM EST Narrative Resulting Agency Comment Spec In Lab Kerri NELSON HEMATOLOGY ORDERABLE S Performing Organization Address [facility] Co de Phone Number [facility] [place] [address] * CK (10/31/2019 10:51 AM EST) Creatine Kinase 69 0 - 160 unit/L [facility] Blood specimen (specimen) 10/31/2019 10:51 AM EST 10/31/2019 10:59 AM EST Narrative Resulting Agency Comment Spec In Lab Asa Wiseman MD CHEMISTRY ORDERABL ES Performing Organization Address [facility] de Phone Number [facility] [place] [address] * Troponin (10/31/2019 10:51 AM EST) Troponin-T <0.01 0.00 - 0.00 ng/mL [facility] Comment: The 99th percentile for Troponin T is less than 0.01 ng/mL, any detectable cTnT concentration using this assay should be considered elevated. According to the third universal definition of myocardial infarction the following criteria with a clinical presentation consistent with acute myocardial ischemia meets the diagnosis for a myocardial infarction (UT). Detection of a rise and/or fall of cTnT, with at least one value greater than the 99th percentile (> or = 0.01) and with at least one of the following ?? Symptoms of ischemia ?? New or presumed new significant TE-ddbqspd-E wave (ST-T) changes or new left bundle [...] additional sample may be indicated. Reference: Third Andrews Definition of Myocardial Infarction. Journal of the [place] [employer] 2012;60:1581-98 Blood specimen (specimen) 10/31/2019 10:51 AM EST 10/31/2019 10:59 AM EST Narrative Resulting Agency Comment Spec In Lab Asa Wiseman MD CHEMISTRY ORDERABL ES Performing Organization Address [facility] Phone Number [facility] [place] [address] * (ABNORMAL) APTT (10/31/2019 10:51 AM EST) Partial Thromboplastin Time 72(H) 25 - [address] [facility] Comment: The PTT is NOT appropriate for heparin monitoring. Use the Anti-Xa level for heparin monitoring (HEP UFH) or LMWH monitoring (HEP LMW). A PTT less than 37 seconds generally indicates adequate hemostasis. Blood specimen (specimen) 10/31/2019 10:51 AM EST 10/31/2019 10:59 AM EST Narrative Resulting Agency Comment Spec In Lab Mk Tate MD HEMATOLOGY ORDERABLE S Performing Organization Address [facility] Phone Number [facility] [place] [address] * Prothrombin Time (10/31/2019 10:51 AM EST) Prothrombin Time 11.9 9.4 - 12.[address] [facility] International Normalization Ratio 1.0 [facility] Comment: An INR <2.0 indicates [...] MD HEMATOLOGY ORDERABLE S Performing Organization Address City/[facility]/ZIP Co de Phone Number [facility] [place] [address] * pro-Brain Natriuretic Peptide (10/31/2019 10:51 AM EST) NT-proBNP 55 <=125 pg/mL [facility] Blood specimen (specimen) 10/31/2019 10:51 AM EST 10/31/2019 10:59 AM EST Narrative Resulting Agency Comment Spec In Lab Mk Tate MD CHEMISTRY ORDERABLES Performing Organization Address [facility] Co de Phone Number [facility] [place] [address] * (ABNORMAL) Basic Metabolic Panel (non-fasting) (10/31/2019 10:51 AM EST) Glucose 79 65 - 199 mg/dL [facility] Comment:Diabetes: >=200 mg/d L plus symptoms Blood Urea Nitrogen 10 8 - 18 mg/dL [facility] Creatinine 0.58(L) 0.70 - 1.20 mg/dL [facility] Sodium 139 135 - 145 mmol/L [facility] Potassium 3.8 3.5 - 5.0 mmol/L [facility] Comment: Please note: ??Patients with WBC >100,000 may have falsely elevated Potassium levels. ??For accurate Potassium quantification in these patients send serum separator tube (gold top) for subsequent determinations. ??Contact the Clinical Chemistry Laboratory if there are any questions. Chloride 106 98 - 107 mmol/L [facility] Carbon Dioxide 15(L) 22 - 31 mmol/L [facility] Anion Gap 18(H) 5 - 15 mmol/L [facility] Calcium 9.3 8.5 - 10.5 mg/dL [facility] Est Glomerular Filtration Rate 107 >=60 mL/min/1. 73 m?? [facility] Comment: The eGFR was calculated using the CKD-EPI equation. As with all creatinine based estimates of kidney function, eGFR values calculated with the CKD-EPI equation are not accurate in patients with acute kidney failure, extremes of body mass or the acutely ill. http://Topix/[facility]SAnkf eGFR 125 >=60 mL/min/1. 73 m?? [facility] Comment: The eGFR was calculated using the CKD-EPI equation. As with all creatinine based estimates of kidney function, eGFR values calculated with the CKD-EPI equation are not accurate in patients with acute kidney failure, extremes of body mass or the acutely ill. http://[employer]ix/[facility] Blood specimen (specimen) 10/31/2019 10:51 AM EST 10/31/2019 10:59 AM EST Narrative Resulting Agency Comment Spec In Lab Mk Tate MD CHEMISTRY ORDERABLES Performing Organization Address City/State/[facility] Co de Phone Number [facility] [place] [address] documented in this encounter Visit Diagnoses Not [...] Oral, EVERY 4 HOURS PRN, Starting on Fri10/31/19 at 1146, Until Fri11/01/19 at 1950, Pain, [...] 81 mg, Oral, DAILY, First dose on Fri10/31/19 at 1215, Until Discontinued, Routine Given 11/01/2019 9:00 AM EST 81 mg Given 10/31/2019 12:15 PM EST 81 mg atorvastatin (Lipitor) tablet 40 mg 40 mg, Oral, EVERY EVENING, First dose on Fri10/31/19 at 1700, Until Discontinued, Routine Given 10/31/2019 5:31 PM EST 40 mg clonazePAM (KlonoPIN) disintegrating tablet 0.25 mg 0.25 mg, Oral, 2 TIMES DAILY PRN, Starting on Fri10/31/19 at 1146, Until Fri11/01/19 at 1950, Anxiety, Routine Given 10/31/2019 8:33 PM EST 0.25 mg clopidogreL (Plavix) tablet 75 mg 75 mg, Oral, EVERY EVENING, First dose on Fri10/31/19 at 1700, Until Discontinued, Routine Given 10/31/2019 [...] (Synthroid) tablet 75 mcg 75 mcg, Oral, Every Morning, First dose on Fri11/01/19 at 0600, Until [...] Intravenous, ONCE PRN, 1 dose, Starting on 11/01/19 at 0913, Until 11/01/19 at 1950, for enhancement of sub-optimal echo images, Echo Lab (Intra-Procedure), Routine verapamiL (ISOPTIN) injection ONCE PRN, Starting on 11/01/19 at 0825, Until Fri11/01/19 at 0845, Administer [...] (Given - Provider: Caryn Cash RN) 0755 ([facility] Hold - Provider: Admin Adt - Reason: Transfer to a Procedural area)0900 (Given - Provider: Jason Burgos RN - Comment: given in cath)0919 ([facility] Unhold - Provider: Admin Adt) atorvastatin (Lipitor) [...] (Given - Provider: Caryn Cash RN) 0755 ([facility] Hold - Provider: Admin Adt - Reason: Transfer to a Procedural area)0919 ([facility] Unhold - Provider: Admin Adt)1700 (Due - Provider: Admin Adt) escitalopram (Lexapro) tablet 30 mg 30 mg, Oral, DAILY, First dose on 11/01/19 at 0900, Until Discontinued, Routine 0755 ([facility] Hold - Provider: Admin Adt - Reason: Transfer to a Procedural area)0900 (Automatically Held - Provider: Admin Adt)0919 ([facility] Unhold - Provider: Admin Adt)0944 (Given - Provider: Jason Burgos CHA) levothyroxine (Synthroid) tablet 75 mcg 75 mcg, Oral, Every Morning, First dose on Fri11/01/19 at 0600, Until Discontinued, Routine 0628 (Given - Provid er: Gilda Wylie RN)0755 ([facility] Hold - Provider: Admin Adt - Reason: Transfer to a Procedural area)0919 ([facility] Unhold - Provider: Admin Adt) lisinopriL (Prinivil;Zestril) tablet 5 mg 5 mg, Oral, DAILY, First dose on Fri11/01/19 at 0900, Until Discontinued, Routine 0755 ([facility] Hold - Provider: Admin Adt - Reason: Transfer to a Procedural area)0900 (Automatically Held - Provider: Admin Adt)0919 ([facility] Unhold - Provider: Admin Adt)0945 (Given - Provider: Jason Burgos, CHA) metoprolol tartrate (Lopressor) tablet 12.5 mg 12.5 mg, Oral, EVERY 6 HOURS SCHEDULED, First dose on Fri10/31/19 at 1215, Until Discontinued, Hold for SBP less than 90 mmHG or HR less than 50 beats per minute, Routine 1221 (Given - Provider: Caryn Cash RN)1731 (Given - Provider: Caryn Cash, CHA)2304 (Given - Provider: Gilda Wylie RN) 0600 (Not Given - Provider: Gilda Wylie RN - Reason: See comment - Comment: Bradycardic HRs 40s-50s)0755 ([facility] Hold - Provider: Admin Adt - Reason: Transfer to a Procedural area)0919 ([facility] Unhold - Provider: Admin Adt)1142 (Given - Provider: Jason Burgos, CHA) pantoprazole EC (Protonix) tablet 40 mg 40 mg, Oral, DAILY, First dose on Fri11/01/19 at 0900, Until Discontinued, DO NOT CRUSH OR OPEN 0755 ([facility] Hold - Provider: Admin Adt - Reason: Transfer to a Procedural area)0900 (Automatically Held - Provider: Admin Adt)0919 ([facility] Unhold - Provider: Admin Adt)0944 (Given [...] area)0919 (NOV Unhold - Provider: Admin Adt) sodium chloride [...] hours., Routine 1548 (Given - Provider: Caryn Cash, RN) 0755 (NOV Hold - Provider: Admin Adt - Reason: Transfer to a Procedural area)09 ([facility] Unhold - Provider: Admin Adt) aspirin chewable tablet (CANCELED) ONCE PRN, Starting on 11/01/19 at 0812, Until Fri11/01/19 at 0919, Cath (Intra-Procedure), Routine 08 (Given - Provider: Tiny Mcphersno, CHA) clonazePAM (KlonoPIN) disintegrating tablet 0.25 mg 0.25 mg, Oral, 2 TIMES DAILY PRN, Starting on 10/31/19 at 1146, Until Fri11/01/19 at 1950, Anxiety, Routine 2032 (Given - Provider: Gilda Wylie RN) 0755 ([facility] Hold - Provider: Admin Adt - Reason: Transfer to a Procedural area)09 ([facility] Unhold - Provider: Admin Adt) clopidogreL (Plavix) tablet (CANCELED) ONCE PRN, Starting on 11/01/19 at 0812, Until Fri11/01/19 at 0919, Cath (Intra-Procedure), Routine 811 (Given - Provider: Tiny Mcpherson RN) fentaNYL 50 mcg/mL multi-dose injection (CANCELED) ONCE PRN, Starting on Fri11/01/19 at 0815, Until Fri11/01/19 at 0845, Intra-Operative (Intra-Procedure), Routine 08 (Given - Provider: Cindy Mari RN) heparin (porcine) 1,000 unit/mL injection (CANCELED) ONCE PRN, Starting on 11/01/19 at 0829, Until Fri11/01/19 at 0845, Cath (Intra-Procedure), Routine 08 (Given - Provider: Heide Ricardo RN) heparin (porcine) injection 0-4,000 Units(Linked Group 1) 0-4,000 Units, Intravenous, BOLUS PER HEPARIN PROTOCOL, Starting on 10/31/19 at 1146, Until 11/01/19 at 1950, Per Protocol, START ADJUSTMENT SCHEDULE 6 HOURS AFTER STARTING INFUSION Heparin UFH Level between 0.1 - 0.29 IU/mL: Bolus 1,900 units Heparin UFH Level less than 0.1 IU/mL: Bolus 3,850 units, Routine 0755 ([facility] Hold - Provider: Admin Adt - Reason: Transfer to a Procedural area)09 ([facility] Unhold - Provider: Admin Adt) iohexoL [...] the last 24 to 72 hours., Routine 075 (NOV Hold - Provider: Admin Adt - Reason: Transfer to a Procedural area)09 ([facility] Unhold - Provider: Admin Adt) nitroGLYcerin [...] UA) documented in this encounter Care Teams Egg Pasteurizer Relationship Specialty Start Date End Date Maryanne Buckley PA [address] [place] [address] PCP - General Family Medicine 09/29/19 05/16/20 documented as of this encounter
--- OUTSIDE RECORDS SUMMARY | 2024-11-10 18:53 | XMS_ITS | Encounter Summary ---
Author Organization [facility] [place] [address] Care Team Providers Care Volumetric Weigher Name Role Phone Maryanne Buckley Primary Care Provider +1- [phone] Reason for Referral * Diagnostic Test (Routine) - Closed Specialty Diagnoses / Procedures Referred By Carlito t Referred To Contact Diagnoses Cervical spine tumor Procedures MRI Cervical Spine wwo Contrast Anthony Escalante MD [facility] [place] [address] [facility], [address] [place] [address] Referral ID Status Reason Start Date Expiration Date V isits Requested Visits Authorized [id number] Closed Specialty Service Requested 04/07/2024 10/07/2025 1 1 Encounter Details Date Type Department Care Team (Late st Contact Info) Description 04/06/2024 [place] [address] Buffy Joseph RN Cervical spine tumor Social History Tobacco [...] as of this encounter Plan of Treatment Scheduled Orders Name Type Priority Associated Diagnoses Orde r Schedule MRI Cervical Spine wwo Contrast Imaging Routine Cervical spine tumor Expected: 04/08/2024, Expires: 10/08/2024 documented as of this encounter Visit Diagnoses 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
--- OUTSIDE RECORDS SUMMARY | 2024-11-10 18:53 | XMS_ITS | Encounter Summary ---
Author [place] [address] Care Team Providers Care Kitchen Bath Designer Name Role Phone Maryanne Buckley Primary Care Provider +1- [phone] Encounter Details Date Type Department Care Team (Late st Contact Info) Description 04/06/2024 Telephone [place] [address] Buffy Joseph, RN Social History Tobacco Use [...] - 04/06/2024 12:30 PM EDT Copied from CRM #[id number]. Topic: Specialty Dept CRMs - Orders >> [...] D-H: Yes If Yes, Name of Facility: [facility] Address: [address] [place] [address] [place] [address] ?? Phone #: [phone] Fax #: unknown documented in this encounter Plan of Treatment Not on file documented as of this encounter Visit Diagnoses Not on filedocumented in this encounter Care Teams Kitchen Bath Designer Relationship Specialty Start Date End Date Maryanne Buckley PA [address] [place] [address] PCP - General Family Medicine 04/05/24 documented as of this encounter
--- OUTSIDE RECORDS SUMMARY | 2024-11-10 18:53 | XMS_ITS | Encounter Summary ---
[place] [address] Care Team Providers Care Systems Management Consultant Name Role Phone Maryanne Buckley Primary Care Provider +1- [phone] Encounter Details Date Type Department Care Team (Late st Contact Info) Description 05/25/2024 Telephone [place] [address] Raul Whiteside Social History Tobacco Use Types [...] encounter Miscellaneous Notes * Telephone Encounter - Ralu Whiteside - 05/25/2024 9:56 AM EDT Jaclyn Carver [id number] Diagnosis/Indication: dilation of duodenal stricture Please review [...] NEW referral patient; skip this question if [facility] GI provider ordered the procedure.) No Is there any other information or concerns you would like to us to share with your care team in relation to your upcoming scheduled procedure? No You must have a responsible green party who will drive you to your procedure, stay on campus for the entire duration of your procedure, and drive you home from your procedure. Who will likely be your line driver for the procedure? Myke *Please Verify [...] on filedocumented in this encounter Care Teams Systems Management Consultant Relationship Specialty Start Date End Date Maryanne Buckley PA [address] [place] [address] PCP - General Family Medicine 04/05/24 documented as of this encounter
--- OUTSIDE RECORDS SUMMARY | 2024-11-10 18:53 | XMS_ITS | Encounter Summary ---
Author Organization [facility] [place] [address] Care Team Providers Care Assistant Women'S Tennis Coach Name Role Phone Maryanne Buckley Primary Care Provider +1- [phone] Reason for Visit * Reason Onset Date Comments Appointment 04/06/2024 Encounter Details Date Type Department Care Team (Late st Contact Info) Description 04/06/2024 [place] [address] Josefina Osborne, RN Appointment Social History Tobacco [...] LVM for pt to call NS at [phone] to schedule. documented in this encounter Plan of Treatment Not on file documented as of this encounter Visit Diagnoses Not on filedocumented in this encounter Care Teams Assistant Women'S Tennis Coach Relationship Specialty Start Date End Date Maryanne Buckley PA [address] [place] [address] PCP - General Family Medicine 04/05/24 documented as of this encounter
--- OUTSIDE RECORDS SUMMARY | 2024-11-10 18:53 | XMS_ITS | Encounter Summary ---
Author Organization [facility] [place] [address] Care Team Providers Care Residential Caregiver Name Role Phone Maryanne Buckley Primary Care Provider [phone] Reason for Visit * Auth/Cert Specialty Diagnoses / Procedures Referred By Contsabrina t Referred To Contact Diagnoses NSTEMI (non-ST elevated myocardial infarction) postive troponin Procedures EMERGENCY IPI Referral ID Status Reason Start Date Expiration Date Visits Re quested Visits Authorized [id number] 1 1 Encounter Details Date Type Department Care Team (Latest Contact Info) Description 10/31/2019 10:26 AM EST - 11/01/2019 5:50 PM EST Hospital Encounter [place] [address] Mk Tate MD [facility] [place] [address] Asa Wiseman MD [facility] [address] Non-ST elevation myocardial infarction (NSTEMI) Discharge Disposition: [...] Jaclyn Carver Patient Age: 49 y.o. Language: Italian Race: White Ethnicity: Not nor Admit date: [...] hypothyroidism, migraines and anxiety/depression who [facility] of worsening heart burn, nausea and [...] ?? Family history positive. Father of an DE at the age of 42. ?? WBC [...] levothyroxine, lisinopril, pantoprazole Hospital Course: Chest pain, DE ruled out, possibly representing non-cardiac chest pain vs unstable angina Troponin elevation represents myocardial injury not NSTEMI The patient was admitted to city hospital for telemetry monitoring. One set of biomarkers was positive at the outside hospital though serial biomarkers at our facility were negative. Thus, she was initiallymanaged as an NSTEMI with DAPT and a heparin infusion. Patient was taken to the shellfish processing laborer due to her strong family history and [...] that the medications be sent to the [facility] and this was called in for [...] appointments: During 8am-5pm Friday through Friday call [phone] to speak with a nurse in the cardiology clinic All other times call [phone] and ask to speak to the fancy stitcher electron microscopist. Return to work: One week Driving: No driving for 48 hours after catheterization. Follow up Appointments: PCP OMAR Rea [phone] to see you on Nov 08 at [...] appointments: During 8am-5pm Friday through Friday call [phone] to speak with a nurse in the cardiology clinic All other times call [phone] and ask to speak to the fancy stitcher electron microscopist. Return to work: One week Driving: No driving for 48 hours after catheterization. 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 NSTEMI (non-ST elevated myocardial infarction) Resolved Hospital Problems No resolved problems to display. Interval History: Patient has returned from the shellfish processing laborer and was found to have nonobstructive coronary [...] recent chest pain who went to the shellfish processing laborer today and was found to have nonobstructive coronary artery disease. Stable for discharge home this afternoon. Plan: Nonobstructive coronary artery disease Patient does not smoke Home today No changes to home medications Given letter to return to work on 11/08/2019 Please see D/C summary for details Full Code Patient discussed with Dr. Wiseman. OMAR Louise 11/01/2019 Pager [phone] OMAR ONEILL 11/01/2019 Cardiology Attending Note I [...] MD, FACP, FACC Section of Cardiovascular Medicine [facility] Brass Polishergang worker [facility] [facility] [employer] [facility] This patient meets or has met medical criteria to require an inpatient level of care, i.e. a minimum of two midnights in the hospital with multiple complex problems. * Karely Hagen PA - 11/01/2019 11:18 AM EST Images from the original note were not included. Formerly [facility] [place] [address] [address] OMAR House November 01, 2019 Jaclyn Win Mehul [address] [place] [phone] Ms. Ball may return to work on [...] bleed 4 years ago due to PUD /2 ibuprofen use, hypothyroidism, migraines and anxiety/depression who presented to [facility] on 10/30/19 of worsening heart burn, nausea [...] free. Family history positive. Father of an DE at the age of 42. WBC 8.7 H/H 13.2/39.6 Plts 367 Na 135 K 3.4 -> 4.2 Bun/Cr 16/0.74 AST/ALT / TC 181, HDL 34, TG 88, LDL [...] of Onset ??? Coronary Artery Disease Father DE at the age of 42 ??? Coronary [...] file Gets together: Not on file Attends nondenominational service: Not on file Active member of [...] on file Social History Narrative Works at [employer] Plan (Boyfriend Joao Stringer) 1 child REVIEW OF [...] hypothyroidism, migraines and anxiety/depression who presented to [facility] on 10/30/19 of worsening heart burn, nausea and malaise. Noted premature family history of disease with father having a fatal DE at the age of 42. 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 Living Situation:Lives in a 1 story home with her boyfriend Joao Stringer and his brother Karely Stringer. Physical address is [address] [place] [address] [address] [facility] [address] Supports: her boyfriend Joao Stringer. Assessment: Patient with no apparent RNCM/SW needs at this time. No housing, transportation, insurance, resources concerns identified at this time. Supports in place to achieve a safe post-hospital transition. No identified barriers to accessing necessary care and/or follow-up after discharge. Plan: Patient to d/c to home via boyfriend when medically ready. paralegal legal secretary/Gem Cutter will continue to follow patient???s progress and remain available if situation changes for coordination of care, psychosocial support and/or discharge planning. Joao Bah RN Pager [phone] * Brief Op Note - Darnell Macias MD - 11/01/2019 8:45 AM EST Preliminary Cardiac Catheterization Procedure Note: Patient Name: Jaclyn Carver : [id number] MR#: [id number] Case Date: 11/01/2019 Geology Teacher: Surgeon(s) and Role: * Darnell Macias MD [...] bradycardic. Heparin gtt continued. PLAN MOVING FORWARD: energy systems laboratory director INDIVIDUALIZED FALL PREVENTION INTERVENTIONS: Patient-specific [...] (Interventions Implemented as Appropriate) 10/31/19 1215 10/31/19 1749 Plan of Care Review Progress -- no [...] Implemented as Appropriate) 10/31/19 1215 10/31/19 1600 Gomez Fall Risk History of Falling [...] COMPLETE (11/01/2019 9:12 AM EST) EF 75 [employer] SYSTEM Anatomical Region Laterality Modality Other 11/01/2019 Narrative 11/01/2019 9:53 AM EST Procedure: ?Transthoracic Echocardiogram Patient: ?MEHUL iWn ? (Age): 1970(49y) Med Rec#: ? [id number] ?Sex: ?F ? Site Loc: ? [facility] ?Ht / Wt: ??162(cm)/63(kg) Pt. Loc: ?Adult Floor ? BSA: ?1.67 Study Date: ?? 11/01/2019 ?Pt. Type: Inpatient Tape: ? Referring: Asa Wiseman ([id number]) Referring: MIKE Reading: Joaquin Davison ([id number]) Mirror Maker: Kassidy Willard Diagnosis: *Non-ST elevation (NSTEMI) myocardial [...] Vmax ?0.66 ? m/sec ? MV deceleration [id number] ?msec ? MV A-wave Vmax ?0.54 ? [...] ? Mid-Inferior ?Normal ? Mid-Inferoseptal ?Normal ? [place]-Septal ? Normal ? [place]-Anterior ? Normal ? [place]-Lateral ?Normal ? [place]-Inferior ? Normal ? [place]-Tip ?Normal ? This report has been electronically signed by: Joaquin Davison MD ? 11/01/2019 09:52:50 Images reviewed and interpretation verified [facility] Cardiac Ultrasound Laboratory Procedure Note Joaquin Davison MD - 11/01/2019 Procedure: Transthoracic Echocardiogram Patient: MEHUL Win DOB(Age): 1970(49y) Med Rec#: [id number] Sex: F Site Loc: [facility] Ht / Wt: 162(cm)/63(kg) Pt. Loc: Adult Floor BSA: 1.67 Study Date: 11/01/2019 Pt. Type: Inpatient Tape: Referring: Asa Wiseman ([id number]) Referring: MIKE Reading: Joaquin Davison ([id number]) Mirror Maker: Kassidy Willard Diagnosis: *Non-ST elevation (NSTEMI) myocardial [...] MV E-wave Vmax 0.66 m/sec MV deceleration hakz332.6 msec MV A-wave Vmax 0.54 m/sec MV [...] Normal Mid-Posterolateral Normal Mid-Inferior Normal Mid-Inferoseptal Normal [place]-Septal Normal [place]-Anterior Normal [place]-Lateral Normal [place]-Inferior Normal [place]-Tip Normal This report has been electronically signed by: Joaquin Davison MD 11/01/2019 09:52:50 Images reviewed and interpretation verified [facility] Cardiac Ultrasound Laboratory Asa Wiseman MD ECHO ORDERABLES * CARDIAC CATHETERIZATION (11/01/2019 8:45 AM EST) Anatomical Region Laterality Modality Other Narrative 11/01/2019 8:59 AM EST ?[facility] ? Cardiac Catheterization/Intervention Report ? Patient Name: Mehul, Jaclyn J. ? Procedure Date: 11/01/2019 ? A #: [id number] ? Primary Physician: Darnell Macias ? Case #: [id number] ? File Name: [id number] ? Catheterization Order Number: [id number] ? [facility] ? Final Report [place], [place] ? Patient Name: ? Jaclyn J. Mehul ? ID#: ?[id number] ? : ?1970 ? Procedure Date: ? November 01, 2019 ? Case #: ? [id number] ? Room: ? 1 ? Case Physician: [...] was ?designated as ASA Class III. The [facility] clinical frailty scale is 2: Well. ? Diagnostic Tests: ?Electrocardiography: ? EKG was assessed by ECG. EKG was Abnormal. EKG showed other ? abnormality. ?Medications Prior to Procedure: ? ASA and Statin. ? Indications for Diagnostic Cath: ?The priority of the diagnostic procedure was Urgent. The indication for ?the shellfish processing laborer visit is ACS less than or equal [...] Procedure Note Darnell Macias MD - 11/01/[address] [facility] Cardiac Catheterization/Intervention Report Patient Name: Jaclyn CarverKady Procedure Date: 11/01/2019 A #: [id number] Primary Physician: Darnell Macias Case #: [id number] File Name: [id number] Catheterization Order Number: [id number] [facility] FinalReport [place], [place] Patient Name: Jaclyn Carver ID#:[id number] :1970 Procedure Date: November 01, 2019 Case [...] patientwas designated as ASA Class III. The [facility] clinical frailty scale is 2:Well. Diagnostic Tests: Electrocardiography: EKG was assessed by ECG. EKG was Abnormal. EKG showed other abnormality. Medications Prior to Procedure: ASA and Statin. Indications for Diagnostic Cath: The priority of the diagnostic procedure was Urgent. The indicationfor the shellfish processing laborer visit is ACS less than or equal [...] units of heparin were administered. A total [id number] of Omnipaque were opened, 50cc of Omnipaque were administered [id number] of Omnipaque were wasted. Radiation: Fluoro time [...] (Bezet) 441 ms MUSE SYSTEM Calculated P [place] 66 degrees MUSE SYSTEM Calculated R [place] 76 degrees MUSE SYSTEM Calculated T [place] 78 degrees MUSE SYSTEM INTERPRETATION Sinus bradycardia Baseline wander Possible ST elevation, consider early repolarization , pericarditis, or injury When compared with ECG of 31-OCT-2019 11:30, No significant change was found Confirmed by Blake Sr MD ([id number]) on 11/01/2019 4:08:17 PM MUSE SYSTEM 11/01/2019 6:24 AM EST 11/01/2019 4:08 PM EST Asa Wiseman MD ECG ORDERABLES Performing Organization Address [facility] de Phone Number MUSE SYSTEM * Heparin (unfractionated) Level (11/01/2019 4:54 AM EST) Pathologist [facility] UF Heparin 0.34 IU/mL [facility] Comment: Guidelines for therapeutic unfractionated [...] MD HEMATOLOGY ORDERAB LES Performing Organization Address [facility] de Phone Number [facility] [place] [address] * Differential, Automated (11/01/2019 4:54 AM EST) Pathologist [facility] Neutrophil % 62.9 % [facility] Neutrophil Absolute 3.88 1.70 - 6.10 x10(3)/mcL [facility] Lymph % 24.6 % [facility] Lymphocytes Abs 1.5 0.9 - 3.2 x10(3)/[facility] Monocyte % 8.3 % [facility] Monocyte Abs 0.5 0.3 - 0.9 x10(3)/[facility] Eos % 2.9 % [facility] Eosinophils Abs 0.2 0.0 - 0.4 x10(3)/[facility] Basophil % 1.1 % [facility] Baso Absolute 0.1 0.0 - 0.1 x10(3)/[facility] Immature Gran % 0.20 % [facility] Comment: Immature granulocytes(IG's)percentage and absolute count will include metamyelocytes, myelocytes, and promyelocytes. Blood smears from CBCs yielding IG's will be scanned manually for concordance. If this scan disagrees with the automated IG or if promyelocytes are noted, a manual differential will be performed. Immature Gran Absolute 0.01 0.00 - 0.04 x10(3)/[facility] Blood specimen (specimen) 11/01/2019 4:54 AM EST 11/01/2019 5:02 AM EST Narrative Resulting Agency Comment Spec In Lab Kerri NELSON HEMATOLOGY ORDERABLE S Performing Organization Address City/State/[facility] [[email or web address]] Co de Phone Number [facility] [place] [address] * (ABNORMAL) Hemogram (11/01/2019 4:54 AM EST) White Blood Cell 6.2 4.0 - 9.5 x10(3)/mc L [facility] Red Blood Cell 3.89(L) 4.00 - 5.21 x10(6)/mc L [facility] Hemoglobin 11.2(L) 11.7 - 15.5 gm/dL [facility] Hematocrit 34.2(L) 35.7 - 45.8 % [facility] Mean Cell Volume 87.9 82.6 - 94.4 fL [facility] Mean Cell Hemoglobin 28.8 27.1 - 32.0 pg [facility] Mean Cell Hemoglobin Concentration 32.7 31.7 - 35.0 gm/dL [facility] Platelet 249 145 - 357 x10(3)/mc L [facility] RDW Standard Deviation 44.1 37.0 - 46.0 fL [facility] RDW coefficient of variation 13.6 11.5 - 14.1 % [facility] Mean Platelet Volume 10.5 7.6 - 12.9 fL [facility] NRBC% auto 0.0 % [facility] NRBC Absolute 0.000 0.000 - 0.000 x10(3)/mc L [facility] Blood specimen (specimen) 11/01/2019 4:54 AM EST 11/01/2019 5:02 AM EST Narrative Resulting Agency Comment Spec In Lab Kerri NELSON HEMATOLOGY ORDERABLE S Performing Organization Address City/[facility]/ZIP Co de Phone Number [facility] [place] [address] * Magnesium (11/01/2019 4:54 AM EST) Magnesium 0.83 0.69 - 1.07 mmol/L [facility] Blood specimen (specimen) 11/01/2019 4:54 AM EST 11/01/2019 5:02 AM EST Narrative Resulting Agency Comment Spec In Lab Asa Wiseman MD CHEMISTRY ORDERABL ES Performing Organization Address City/[facility]/ZIP Co de Phone Number [facility] [place] [address] * (ABNORMAL) BMP w/fasting Glucose (11/01/2019 4:54 AM EST) Glucose Fasting 94 65 - 99 mg/dL [facility] Comment: ?Fasting* Glucose Interpretive Criteria [...] of Diabetes Mellitus, Position Statement from the [place] Diabetes Association. ??Diabetes Care, Volume 33, Supplement 1, Sep 2009 Blood Urea Nitrogen 12 8 - 18 mg/dL [facility] Creatinine 0.50(L) 0.70 - 1.20 mg/dL [facility] Sodium 137 135 - 145 mmol/L [facility] Potassium 3.6 3.5 - 5.0 mmol/L [facility] Comment: Please note: ??Patients with WBC >100,000 may have falsely elevated Potassium levels. ??For accurate Potassium quantification in these patients send serum separator tube (gold top) for subsequent determinations. ??Contact the Clinical Chemistry Laboratory if there are any questions. Chloride 105 98 - 107 mmol/L [facility] Carbon Dioxide 21(L) 22 - 31 mmol/L [facility] Anion Gap 11 5 - 15 mmol/L [facility] Calcium 9.7 8.5 - 10.5 mg/dL [facility] Est Glomerular Filtration Rate 113 >=60 mL/min/1. 73 m?? [facility] Comment: The eGFR was calculated using the CKD-EPI equation. As with all creatinine based estimates of kidney function, eGFR values calculated with the CKD-EPI equation are not accurate in patients with acute kidney failure, extremes of body mass or the acutely ill. http://SimpliVity/DHMCnkf eGFR 131 >=60 mL/min/1. 73 m?? [facility] Comment: The eGFR was calculated using the CKD-EPI equation. As with all creatinine based estimates of kidney function, eGFR values calculated with the CKD-EPI equation are not accurate in patients with acute kidney failure, extremes of body mass or the acutely ill. http://TapClicks.Jag.ag/DHMCnkf Blood specimen (specimen) 11/01/2019 4:54 AM EST 11/01/2019 5:02 AM EST Narrative Resulting Agency Comment Spec In Lab Asa Wiseman MD CHEMISTRY ORDERABL ES Performing Organization Address [facility] [[email or web address]] Co de Phone Number [facility] [place] [address] * Hepatic Function Panel (11/01/2019 4:54 AM EST) Protein, Total 6.2 6.1 - 8.0 gm/dL [facility] Albumin 3.7 3.2 - 5.2 gm/dL [facility] Aspartate Aminotransferase 10 0 - 30 unit/L [facility] Alanine Aminotransferase 7 0 - 30 unit/L [facility] Alkaline Phosphatase 53 35 - 105 unit/L [facility] Bilirubin, Total 0.2 0.2 - 1.3 mg/dL [facility] Bilirubin, Direct <0.1 0.0 - 0.3 mg/dL [facility] Blood specimen (specimen) 11/01/2019 4:54 AM EST 11/01/2019 5:02 AM EST Narrative Resulting Agency Comment Spec In Lab Asa Wiseman MD CHEMISTRY ORDERABL ES Performing Organization Address [facility] [[email or web address]] Co de Phone Number [facility] [place] [address] * Triglyceride (11/01/2019 4:54 AM EST) Triglyceride 122 mg/dL [facility] Comment: Average Risk/Lower Risk: <150 mg/dL Borderline High Risk: 150-199 mg/dL High Risk: 200-499 mg/dL Very High Risk: >ew=208 mg/dL Blood specimen (specimen) 11/01/2019 4:54 AM EST 11/01/2019 5:02 AM EST Narrative Resulting Agency Comment Spec In Lab Asa Wiseman MD CHEMISTRY ORDERABL ES [facility] [place] [address] * HDL/Cholesterol Profile (11/01/2019 4:54 AM EST) Cholesterol, Total 167 mg/dL [facility] Comment: Lower Risk: <200 mg/dL Average Risk: 200-239 mg/dL Higher Risk: >nq=336 mg/dL HDL Cholesterol 34 mg/dL [facility] Comment: Males: ?? Higher Risk: <40 mg/dL Females: ?? HIgher Risk: <50 mg/dL Cholesterol/HDL Ratio 4.9 ratio [facility] Chol/HDL Interpretation See Note [facility] Comment: Lipid management should be guided by a patient? s ASCVD risk, goals and preferences. ACC/AHA Guidelines recommend high intensity statin if clinical ASCVD or LDL greater than or equal to 190 mg/dL. http://inexiourl.com/VMD-AIQ-Bzycwfdgo Measure LDL if Total Cholesterol minus HDL Cholesterol is greater than 220 mg/dL. Adults aged 40-75 with LDL 70-189 mg/dL should have their 10 year ASCVD risk estimated with the ACC/AHA ASCVD risk ground equipment mechanic http://tools.acc.org/TOFKX-Nuuo-Gsmusalun/ Statin should be discussed if risk greater [...] Organization Address [facility] de Phone Number [facility] [place] [address] * LDL Cholesterol, Direct (11/01/2019 4:54 AM EST) LDL Cholesterol, Direct 111 mg/dL [facility] Comment: Lowest Risk: <100 mg/dL Lower Risk: 100-129 mg/dL Borderline High Risk: 130-159 mg/dL High Risk: 160-189 mg/dL Very High Risk: >za=468 mg/dL Blood specimen (specimen) 11/01/2019 4:54 AM EST 11/01/2019 5:02 AM EST Narrative Resulting Agency Comment Spec In Lab Asa Wiseman MD CHEMISTRY ORDERABL ES Performing Organization Address [facility] de Phone Number [facility] [place] [address] * Hemoglobin A1c (11/01/2019 4:54 AM EST) Hemoglobin A1c 5.3 4.3 - 5.6 % [facility] Comment: Reference Range: 4.3 - [...] Mellitus, Diabetes Care 2013; 36: Suppl. 1, S67-09 Estimated Average Glucose 105 mg/dL [facility] Comment: eAG equivalents for HbA1c [...] into estimated average glucose values. ??Diabetes Care 2008:31(8):7659-0228. Blood specimen (specimen) 11/01/2019 4:54 AM EST 11/01/2019 5:02 AM EST Narrative Resulting Agency Comment Spec In Lab Asa Wiseman MD CHEMISTRY ORDERABL ES [facility] [place] [address] * Heparin (unfractionated) Level (10/31/2019 11:01 PM EST) UF Heparin 0.38 IU/mL [facility] Comment: Guidelines for therapeutic unfractionated [...] MD HEMATOLOGY ORDERAB LES Performing Organization Address [facility] de Phone Number [facility] [place] [address] * CK (10/31/2019 11:01 PM EST) Creatine Kinase 65 0 - 160 unit/L [facility] Blood specimen (specimen) 10/31/2019 11:01 PM EST 10/31/2019 11:05 PM EST Narrative Resulting Agency Comment Spec In Lab Asa Wiseman MD CHEMISTRY ORDERABL ES Performing Organization Address [facility] Phone Number [facility] [place] [address] * Troponin (10/31/2019 11:01 PM EST) Troponin-T <0.01 0.00 - 0.00 ng/mL [facility] Comment: The 99th percentile for Troponin T is less than 0.01 ng/mL, any detectable cTnT concentration using this assay should be considered elevated. According to the third universal definition of myocardial infarction the following criteria with a clinical presentation consistent with acute myocardial ischemia meets the diagnosis for a myocardial infarction (DE). Detection of a rise and/or fall of cTnT, with at least one value greater than the 99th percentile (> or = 0.01) and with at least one of the following ?? Symptoms of ischemia ?? New or presumed new significant NL-vwqsxba-F wave (ST-T) changes or new left bundle [...] additional sample may be indicated. Reference: Third [place] Definition of Myocardial Infarction. Journal of the [place] College of [employer]iology 2012;60:1581-98 Blood specimen (specimen) 10/31/2019 11:01 PM EST 10/31/2019 11:05 PM EST Narrative Resulting Agency Comment Spec In Lab Asa Wiseman MD CHEMISTRY ORDERABL ES Performing Organization Address [facility] de Phone Number [facility] [place] [address] * Heparin (unfractionated) Level (10/31/2019 5:19 PM EST) UF Heparin 0.34 IU/mL [facility] Comment: Guidelines for therapeutic unfractionated [...] MD HEMATOLOGY ORDERAB LES Performing Organization Address [facility] de Phone Number [facility] [place] [address] * CK (10/31/2019 5:19 PM EST) Creatine Kinase 72 0 - 160 unit/L [facility] Blood specimen (specimen) 10/31/2019 5:19 PM EST 10/31/2019 5:56 PM EST Narrative Resulting Agency Comment Spec In Lab Asa Wiseman MD CHEMISTRY ORDERABL ES Performing Organization Address [facility] [[email or web address]] Co de Phone Number [facility] [place] [address] * Troponin (10/31/2019 5:19 PM EST) Pathologist [facility] Troponin-T <0.01 0.00 - 0.00 ng/mL [facility] Comment: The 99th percentile for Troponin T is less than 0.01 ng/mL, any detectable cTnT concentration using this assay should be considered elevated. According to the third universal definition of myocardial infarction the following criteria with a clinical presentation consistent with acute myocardial ischemia meets the diagnosis for a myocardial infarction (DE). Detection of a rise and/or fall of cTnT, with at least one value greater than the 99th percentile (> or = 0.01) and with at least one of the following ?? Symptoms of ischemia ?? New or presumed new significant TG-pkexivp-J wave (ST-T) changes or new left bundle [...] additional sample may be indicated. Reference: Third [place] Definition of Myocardial Infarction. Journal of the [place] [employer] 2012;60:1581-98 Blood specimen (specimen) 10/31/2019 5:19 PM EST 10/31/2019 5:56 PM EST Narrative Resulting Agency Comment Spec In Lab Asa Wiseman MD CHEMISTRY ORDERABL ES Performing Organization Address [facility]/ZIP Co de Phone Number [facility] [place] [address] * EKG 12 Lead (10/31/2019 11:30 AM EST) Ventricular rate 71 BPM MUSE SYSTEM Atrial Rate 71 BPM MUSE SYSTEM P-R Interval 144 ms MUSE SYSTEM QRS Duration 104 ms MUSE SYSTEM Q-T Interval 412 ms MUSE SYSTEM QTC Calculated (Bezet) 447 ms MUSE SYSTEM Calculated P [place] 65 degrees MUSE SYSTEM Calculated R [place] 67 degrees MUSE SYSTEM Calculated T [place] 64 degrees MUSE SYSTEM INTERPRETATION Normal sinus rhythm Intraventricul ar conduction delay Nonspecific T wave abnormality Abnormal ECG No previous ECGs available Confirmed by MD Caroline, Abhishek Gallego ([id number]) on 10/31/2019 11:52:13 AM MUSE SYSTEM 10/31/2019 11:3 0 AM EST 10/31/2019 11:52 AM EST Mk Tate MD ECG ORDERABLES Performing Organization Address [facility] Phone Number MUSE SYSTEM * TSH (10/31/2019 10:51 AM EST) Thyroid Stimulating Hormone 1.82 0.27 - 4.20 mcIU/mL [facility] Blood specimen (specimen) Venous Draw / Unknown 10/31/2019 10:51 AM EST 10/31/2019 11:06 AM EST Narrative Resulting Agency Comment Spec In Lab Kerri NELSON CHEMISTRY ORDERABLES Performing Organization Address [facility] de Phone Number [facility] [place] [address] * Heparin (unfractionated) Level (10/31/2019 10:51 AM EST) UF Heparin 0.37 IU/mL [facility] Comment: Guidelines for therapeutic unfractionated [...] Lab Asa Wiseman MD HEMATOLOGY ORDERAB LES [facility] [place] [address] * (ABNORMAL) Differential, Automated (10/31/2019 10:51 AM EST) Neutrophil % 78.9 % [facility] Neutrophil Absolute 6.17(H) 1.70 - 6.10 x10(3)/mc L [facility] Lymph % 12.6 % [facility] Lymphocytes Abs 1.0 0.9 - 3.2 x10(3)/mc L [facility] Monocyte % 7.0 % [facility] Monocyte Abs 0.6 0.3 - 0.9 x10(3)/mc L [facility] Eos % 0.6 % [facility] Eosinophils Abs 0.0 0.0 - 0.4 x10(3)/mc L [facility] Basophil % 0.6 % [facility] Baso Absolute 0.0 0.0 - 0.1 x10(3)/ L [facility] Immature Gran % 0.30 % [facility] Comment: Immature granulocytes(IG's)percentage and absolute count will include metamyelocytes, myelocytes, and promyelocytes. Blood smears from CBCs yielding IG's will be scanned manually for concordance. If this scan disagrees with the automated IG or if promyelocytes are noted, a manual differential will be performed. Immature Gran Absolute 0.02 0.00 - 0.04 x10(3)/ L [facility] Blood specimen (specimen) 10/31/2019 10:51 AM EST 10/31/2019 10:59 AM EST Narrative Resulting Agency Comment Spec In Lab Kerri NELSON HEMATOLOGY ORDERABLE S Performing Organization Address City/State/[facility] [[email or web address]] Co de Phone Number [facility] [place] [address] * (ABNORMAL) Hemogram (10/31/2019 10:51 AM EST) White Blood Cell 7.8 4.0 - 9.5 x10(3)/ L [facility] Red Blood Cell 3.82(L) 4.00 - 5.21 x10(6)/ L [facility] Hemoglobin 11.1(L) 11.7 - 15.5 gm/dL [facility] Hematocrit 33.8(L) 35.7 - 45.8 % [facility] Mean Cell Volume 88.5 82.6 - 94.4 fL [facility] Mean Cell Hemoglobin 29.1 27.1 - 32.0 pg [facility] Mean Cell Hemoglobin Concentration 32.8 31.7 - 35.0 gm/dL [facility] Platelet 288 145 - 357 x10(3)/[facility] RDW Standard Deviation 44.6 37.0 - 46.0 fL [facility] RDW coefficient of variation 13.8 11.5 - 14.1 % [facility] Mean Platelet Volume 10.4 7.6 - 12.9 fL [facility] NRBC% auto 0.0 % [facility] NRBC Absolute 0.000 0.000 - 0.000 x10(3)/mc L [facility] Blood specimen (specimen) 10/31/2019 10:51 AM EST 10/31/2019 10:59 AM EST Narrative Resulting Agency Comment Spec In Lab Kerri NELSON HEMATOLOGY ORDERABLE S Performing Organization Address [facility] [[email or web address]] Co va Phone Number [facility] [place] [address] * CK (10/31/2019 10:51 AM EST) Creatine Kinase 69 0 - 160 unit/L [facility] Blood specimen (specimen) 10/31/2019 10:51 AM EST 10/31/2019 10:59 AM EST Narrative Resulting Agency Comment Spec In Lab Asa Wiseman MD CHEMISTRY ORDERABL ES Performing Organization Address [facility] [[email or web address]] Co va Phone Number [facility] [place] [address] * Troponin (10/31/2019 10:51 AM EST) Troponin-T <0.01 0.00 - 0.00 ng/mL [facility] Comment: The 99th percentile for Troponin T is less than 0.01 ng/mL, any detectable cTnT concentration using this assay should be considered elevated. According to the third universal definition of myocardial infarction the following criteria with a clinical presentation consistent with acute myocardial ischemia meets the diagnosis for a myocardial infarction (DE). Detection of a rise and/or fall of cTnT, with at least one value greater than the 99th percentile (> or = 0.01) and with at least one of the following ?? Symptoms of ischemia ?? New or presumed new significant HY-vcgvwbl-X wave (ST-T) changes or new left bundle [...] additional sample may be indicated. Reference: Third [place] Definition of Myocardial Infarction. Journal of the [place] [employer]iology 2012;60:1581-98 Blood specimen (specimen) 10/31/2019 10:51 AM EST 10/31/2019 10:59 AM EST Narrative Resulting Agency Comment Spec In Lab Asa Wiseman MD CHEMISTRY ORDERABL ES Performing Organization Address [facility] [[email or web address]] Co de Phone Number [facility] [place] [address] * (ABNORMAL) APTT (10/31/2019 10:51 AM EST) Partial Thromboplastin Time 72(H) 25 - 37 sec [facility] Comment: The PTT is NOT appropriate for heparin monitoring. Use the Anti-Xa level for heparin monitoring (HEP UFH) or LMWH monitoring (HEP LMW). A PTT less than 37 seconds generally indicates adequate hemostasis. Blood specimen (specimen) 10/31/2019 10:51 AM EST 10/31/2019 10:59 AM EST Narrative Resulting Agency Comment Spec In Lab Mk Tate MD HEMATOLOGY ORDERABLE S Performing Organization Address [facility]/ZIP Co de Phone Number [facility] [place] [address] * Prothrombin Time (10/31/2019 10:51 AM EST) Prothrombin Time 11.9 9.4 - 12.5 sec [facility] International Normalization Ratio 1.0 [facility] Comment: An INR <2.0 indicates [...] MD HEMATOLOGY ORDERABLE S Performing Organization Address [facility] [[email or web address]] Co de Phone Number [facility] [place] [address] * pro-Brain Natriuretic Peptide (10/31/2019 10:51 AM EST) NT-proBNP 55 <=125 pg/mL [facility] Blood specimen (specimen) 10/31/2019 10:51 AM EST 10/31/2019 10:59 AM EST Narrative Resulting Agency Comment Spec In Lab Mk Tate MD CHEMISTRY ORDERABLES Performing Organization Address [facility] de Phone Number [facility] [place] [address] * (ABNORMAL) Basic Metabolic Panel (non-fasting) (10/31/2019 10:51 AM EST) Glucose 79 65 - 199 mg/dL [facility] Comment:Diabetes: >=200 mg/d L plus symptoms Blood Urea Nitrogen 10 8 - 18 mg/dL [facility] Creatinine 0.58(L) 0.70 - 1.20 mg/dL [facility] Sodium 139 135 - 145 mmol/L [facility] Potassium 3.8 3.5 - 5.0 mmol/L [facility] Comment: Please note: ??Patients with WBC >100,000 may have falsely elevated Potassium levels. ??For accurate Potassium quantification in these patients send serum separator tube (gold top) for subsequent determinations. ??Contact the Clinical Chemistry Laboratory if there are any questions. Chloride 106 98 - 107 mmol/L [facility] Carbon Dioxide 15(L) 22 - 31 mmol/L [facility] Anion Gap 18(H) 5 - 15 mmol/L [facility] Calcium 9.3 8.5 - 10.5 mg/dL [facility] Est Glomerular Filtration Rate 107 >=60 mL/min/1. 73 m?? [facility] Comment: The eGFR was calculated using the CKD-EPI equation. As with all creatinine based estimates of kidney function, eGFR values calculated with the CKD-EPI equation are not accurate in patients with acute kidney failure, extremes of body mass or the acutely ill. http://SimpliVity/DHMCnkf eGFR 125 >=60 mL/min/1. 73 m?? [facility] Comment: The eGFR was calculated using the CKD-EPI equation. As with all creatinine based estimates of kidney function, eGFR values calculated with the CKD-EPI equation are not accurate in patients with acute kidney failure, extremes of body mass or the acutely ill. http://SimpliVity/DHMCnkf Blood specimen (specimen) 10/31/2019 10:51 AM EST 10/31/2019 10:59 AM EST Narrative Resulting Agency Comment Spec In Lab Mk Tate MD CHEMISTRY ORDERABLES [facility] [place] [address] documented in this encounter Visit Diagnoses Diagnosis [...] PROTOCOL, Starting on 10/31/19 at 1146, Until Fri11/01/19 at 1950, Per Protocol, START ADJUSTMENT SCHEDULE 6 HOURS AFTER STARTING INFUSION Heparin UFH Level between 0.1 - 0.29 IU/mL: Bolus 1,900 units Heparin UFH Level less than 0.1 IU/mL: Bolus 3,850 units, Routine heparin 25,000 units in sodium chloride 0.45% 500 mL infusion 0-5,000 Units/hr (0-100 mL/hr), Intravenous, CONTINUOUS, Starting on 10/31/19 at 1215, Until Fri11/01/19 at 1950, BEGIN [...] Admin Adt)1142 (Given - Provider: Jason Burgos, RN) pantoprazole EC (Protonix) tablet 40 mg [...] Bag - Provider: Caryn Cash RN) 0755 ([facility] Hold - Provider: Admin Adt - Reason: Transfer to a Procedural area)0919 ([facility] Unhold - Provider: Admin Adt) sodium [...] 24 hours., Routine 1548 (Given - Provider: Crayn Cash RN) 0755 ([facility] Hold [...] 10/31/19 at 1146, Until 11/01/19 at 1950, Anxiety, Routine 2032 (Given - [...] Cath (Intra-Procedure), Routine 08 (Given - Provider: Cindy Mari RN) nitroGLYcerin [...] UA) documented in this encounter Care Teams Residential Caregiver Relationship Specialty Start Date End Date Maryanne Buckley PA [address] [place] [address] PCP - General Family Medicine 09/29/19 05/16/20 documented as of this encounter
--- OUTSIDE RECORDS SUMMARY | 2024-11-10 18:53 | XMS_ITS | Encounter Summary ---
[facility] [address] Care Team Providers Care Third Cook Name Role Phone Maryanne Buckley Primary Care Provider +1- [phone] Encounter Details Date Type Department Care Team (Latest Contact Info) Description 08/14/2024 Travel Social History Tobacco Use Types Packs/Day [...] on filedocumented in this encounter Care Teams Third Cook Relationship Specialty Start Date End Date Maryanne Buckley PA [address] [place] [address] PCP - General Family Medicine 04/05/24 documented as of this encounter
--- OUTSIDE RECORDS SUMMARY | 2024-11-10 18:53 | XMS_ITS | Encounter Summary ---
[place] [address] Care Team Providers Care Director Channel Name Role Phone Maryanne Buckley Primary Care Provider +1- [phone] Encounter Details Date Type Department Care Team (Late st Contact Info) Description 10/30/2019 [place] [id number] Fox Martin MD Social History Tobacco Use Types Packs/Day Years [...] NTG if pain returns. Fox Martin MD Flue Gas Analyst. documented in this encounter Plan of Treatment Not on file documented as of this encounter Visit Diagnoses Not on filedocumented in this encounter Care Teams Director Channel Relationship Specialty Start Date End Date Maryanne Buckley PA [address] [place] [address] PCP - General Family Medicine 09/29/19 05/16/20 documented as of this encounter
--- OUTSIDE RECORDS SUMMARY | 2024-11-10 18:53 | XMS_ITS | Encounter Summary ---
Author Organization [facility] [place] [address] Care Team Providers Care Semi Automatic Sewing Machine Operator Name Role Phone Unknown Primary Care Provider Unavailabl e Encounter Details Date Type Department Care Team (Late st Contact Info) Description 03/17/2024 8:00 PM EDT Ancillary Procedure Radiology [facility] at [facility] [place] [address] Tam Ritchie MD [facility] [place] [address] Social History Tobacco Use Types Packs/Day Years [...] MR Spine (03/17/2024 7:56 PM EDT) Narrative [facility] - 03/17/2024 7:56 PM EDT This exam is auto-finalizing. It's purpose is for storage only. Tam Ritchie MD [facility] FILM LIBRARY ORD ERABLES [place], [place] documented in this encounter Visit Diagnoses Not on filedocumented in this encounter Care Teams Semi Automatic Sewing Machine Operator Relationship Specialty Start Date End Date Unknown None PCP - General 05/17/20 04/04/24 documented as of this encounter
--- OUTSIDE RECORDS SUMMARY | 2024-11-10 18:53 | XMS_ITS | Encounter Summary ---
Author Organization [facility] [place] [address] Care Team Providers Care Closer On Name Role Phone Maryanne Buckley Primary Care Provider +1- [phone] Reason for Visit * Auth/Cert (Routine) Specialty Diagnoses / Procedures Referred By Carlito wolfe Referred To Contact Diagnoses Duodenal stricture EGD/EUS +/- dilation of duodenal stricture. 60 minutes, in about 4 weeks Procedures PRO UPPER GI ENDOSCOPY, DIAGNOSTIC PRO ENDOSCOPIC US EXAM, ESOPH PRO UPPER GI ENDOSCOPY, BIOPSY PRO UP GI ENDOSCOPY, REMV TUMOR, SNARE PRO UP GI ENDOSCOPY, BALL DIL, 30MM PRO ANES, UGI ENDOSCOPY NOS EGD, UPPER GI ENDOSCOPY (WRVU 2.09) UPPER EUS- ENDOSCOPIC ULTRASOUND (WRVU 3.47) Wero Church MD [facility] [place] [address] [facility] Referral ID Status Reason Start Date Expiration Date Visits Re quested Visits Authorized [id number] 1 1 Encounter Details Date Type Department Care Team (Late st Contact Info) Description 07/20/2024 4:18 PM EDT Anesthesia [place] [address] Benjamin Gil MD [facility] ANESTHESIOLOGY DEPT [place], [place] [id number] Anesthesia Record Procedure Summary Procedure Name Responsible Anesthesiologist Anesthesia Start Time Anesthesia Stop Time EGD WITH BIOPSY (WRVU 2.39) (Trunk) Benjamin Gil MD 07/20/24 1618 07/20/24 1719 Events Date Time Event Comment 07/20/2024 1618 AN Verify 1618 Start 1618 An Start Data 1624 An Data Art Probe off pt 1625 An Induction 1627 Anesthesia Ready 1628 1637 Quick Note Pts stomach is full. Scope removed and ETT placed 1638 An Induction 1639 An Intubation 1716 an stop data 1719 Recovery or ICU Handoff Ana ent care was transferred to the destination unit staff after review of the patient's medical history, current anesthetic/surgical status and plan, according to the Provider Handoff Checklist. 1719 Stop Meds Name Total propofoL 200 mg propofol INF 150.7 mg succinylcholine 100 mg lactated ringers infusion 600 mL * Agents Name O2 Air N2O Sevoflurane (et) O2 Auxiliary Flowmeter 1 * Blood No blood administrations on file. Lines, Drains, and Airways Type Details Placement Removal PIV 07/20/24; 1610; acia-ltl-bcudrb catheter system; 22 gauge; metacarpal vein (top of hand), right; Anatomical Landmarks; kacie; 07/20/24; 1806 07/20/24 1610 by Ean Syed RN 07/20/24 180 by Jaycee Mercedes RN ETT Mask Ventilation: No t Attempted (0); ETT Type: Cuffed; ETT Size: 7 mm; Rashid Blade: 2; Notes: Asleep, RSI, Stylette; Attempts: 1; Laryngoscopy Grade: 1; ETT Placement Verified By: Auscultation, Capnometry, Visual; Secured at Teeth: 23 cm; Inserted by: Gianna Alfonso CRNA; Removal Date: 09/07/24; Removal Time: 1608 07/20/24 1638 by Rupal Alfonso CRNA 09/07/24 160 by Jeremiah Smith MD documented in this [...] OR Notes * Anesthesia Postprocedure Evaluation - Benjamin Gil MD - 07/22/2024 4:07 PM EDT Department of Anesthesiology Post-procedure Note Patient: Jaclyn Carver Procedure Summary Date: 07/20/24 Room / Location: [facility]O 3 / [facility] ENDOSCOPY Anesthesia Start: 161 Anesthesia Stop: 171 Procedures: EGD WITH BIOPSY (WRVU 2.39) (Trunk) UPPER EUS- ENDOSCOPIC ULTRASOUND (WRVU 3.47) (Trunk) EGD,WITH DILATION GASTRIC/DUODENAL STRICTURES (WRVU 3.08) Diagnosis: (EGD/EUS +/- dilation of duodenal stricture. 60 minutes, in about 4 weeks) Surgeons: Wero Church MD Responsible Provider: Benjamin Gil MD Anesthesia Type: MAC ASA Status: 2 All Anesthesia Providers: Anesthesiologist: Benjamin Gil MD SALES FORCE DEVELOPER: Rupal Alfonso CRNA Vitals Value Taken Time BP 147/94 07/20/24 1750 Temp Pulse Resp 18 07/20/24 1736 SpO2 100 % 07/20/24 1751 Pain Level 0 07/20/24 1736 Vitals shown include unfiled device data. Patient Location: PACU/[facility] Level of Consciousness: Conscious but Sleepy Pain Management: Satisfactory Analgesia PONV: None Cardiovascular Status: Hemodynamically Stable Respiratory Status: Stable Respiratory Status Postoperative Fluid Status: Intravascular EUvolemia Possible Anesthetic Complications: NONE apparent at time of evaluation Final Primary Anesthesia Type: General (The anesthetic type performed was the same as planned.) Comments: * Anesthesia Preprocedure Evaluation - Benjamin Gil MD - 07/20/2024 8:51 AM EDT Pre-Anesthesia Evaluation for: Jaclyn Carver a 53 y.o. female. Procedure(s): EGD, UPPER GI ENDOSCOPY (WRVU 2.09) UPPER EUS- ENDOSCOPIC ULTRASOUND (WRVU 3.47) Patient Active Problem List Diagnosis Date Noted ??? NSTEMI (non-ST elevated myocardial infarction) 10/31/2019 Past Medical History: Diagnosis Date ??? Anemia ??? Anxiety ??? Depressive disorder ??? GERD (gastroesophageal reflux disease) ??? GI bleed ??? HTN (hypertension) ??? Hypothyroidism ??? Migraine No past surgical history on file. Social History Tobacco Use ??? Smoking status: Never ??? Smokeless tobacco: Never Substance Use Topics ??? Alcohol use: Not Currently Comment: Rarely Social History Substance and Sexual Activity Drug Use Not on file Allergies Allergen Reactions ??? Prednisone Altered mental status Medications: MAR and/or home medications have been reviewed. Physical Exam: Preprocedure Vitals Current as of 07/20/24 0851 No BP, pulse, respiration, SpO2, or temperature recorded. Height: Weight: BMI: IBW: Airway Assessment: Mallampati: II Cardiovascular Assessment: system normal Pulmonary Assessment: pulmonary exam normal Dental Assessment: Misc Assessment: Last Filed Perioperative Cognitive Screening None Anesthesia Plan: ASA 2 MAC, 53 yr old F pmhx NSTEMI 2019 with nonobstructive CAD on cath presenting for EUS for duodenal stricture No anest records No recent labs Echo in 2019 reassuring Planning prop mac Informed Consent: Anesthesia Screening documented in this encounter Plan of Treatment Not on file documented as of this encounter Visit Diagnoses Not on filedocumented in this encounter Administered Medications Inactive Administered Medications - up to 3 most recent administrations Medication Order MAR Action Action Date Dose Rate Site lactated ringers infusion 100 mL/hr, Intravenous, CONTINUOUS, Starting on Fri07/20/24 at 1615, Until Fri07/20/24 at 1806, Day of Surgery (Day of Procedure) New Bag 07/20/2024 4:18 PM EDT propofoL (Diprivan) (10 mg/mL) infusion Intravenous, CONTINUOUS PRN, Starting on Fri07/20/24 at 1625, Until Fri07/20/24 at 1719, Anesthesia Intra-op, Routine New Bag 07/20/2024 4:25 PM EDT 200 mcg/kg/min 82.2 mL/hr propofoL (Diprivan) 10 mg/mL bolus injection (Anesthesia) Intravenous, PRN, Starting on Fri07/20/24 at 1625, Until Fri07/20/24 at 1719, Anesthesia Intra-op Given 07/20/2024 4:38 PM EDT 150 mg Given 07/20/2024 4:25 PM EDT 50 mg succinylcholine (Anectine;Quelicin) (20 mg/mL) injection Intravenous, PRN, Starting on Fri07/20/24 at 1638, Until Fri07/20/24 at 1719, Anesthesia Intra-op, Routine Given 07/20/2024 4:38 PM EDT 100 mg documented in this encounter Care Teams Closer On Relationship Specialty Start Date End Date Maryanne Buckley PA [address] [place] [address] PCP - General Family Medicine 04/05/24 documented as of this encounter
--- OUTSIDE RECORDS SUMMARY | 2024-11-10 18:53 | XMS_ITS | Encounter Summary ---
[place] [address] Care Team Providers Care Putty Patcher Name Role Phone Maryanne Buckley Primary Care Provider +1- [phone] Reason for Referral * Consultation (Routine) - Closed Specialty Diagnoses / Procedures Referred By Carlito wolfe Referred To Contact Neurosurgery Diagnoses Routine general medical examination at a health care facility [place] NE[facility]OPATH[facility] EVAL AND TREAT Etelvina Dan APRN [address] [place] [address] [place] [address] [facility] [address] [place] [id number] Referral ID Status Reason Start Date Expiration Date V isits Requested Visits Authorized [id number] Closed Consult, Test & Treat PCP Updated and/or Approved 03/22/2024 03/22/2025 6 6 Encounter Details Date Type Department Care Team (Late st Contact Info) Description 04/05/2024 Transcribe Orders eDH Incoming Referrals [phone] Etelvina Dan APRN [address] [place] [address] [address] [place] [phone] Routine general medical examination at a health [...] of this encounter Plan of Treatment Scheduled Referrals Name Type Priority Associated Diagnoses Orde r Schedule Referral to Neurosurgery Outpatient Referral Routine Routine general medical examination at a health care facility Ordered: 04/05/2024 documented as of this encounter Visit Diagnoses Diagnosis Routine general medical examination at a health care facility documented in this encounter Care Teams Putty Patcher Relationship Specialty Start Date End Date Maryanne Buckley PA [address] [place] [address] PCP - General Family Medicine 04/05/24 documented as of this encounter
--- OUTSIDE RECORDS SUMMARY | 2024-11-10 18:53 | XMS_ITS | Encounter Summary ---
Author Organization [facility], Located Within [facility] [place] [address] Care Team Providers Care Lithograph Press Operator Name Role Phone Unknown Primary Care Provider Unavailabl e Encounter Details Date Type Department Care Team (Late st Contact Info) Description 03/04/2024 Ancillary Procedure Radiology Library at [facility] [place] [phone] Nathalie Deutsch MD [facility] [place] [address] Social History Tobacco Use Types Packs/Day Years [...] STORAGE ONLY CT ABDOMEN AND PELVIS Routine 03/04/2024 12:00 AM EDT documented in this encounter Results * Film Library- Storage Only CT Abdomen & Pelvis (03/04/2024 12:00 AM EDT) Narrative [facility] - 08/03/2024 4:06 AM EST This exam is auto-finalizing. It's purpose is for storage only. Nathalie Deutsch MD IMG FILM LIBRARY OR DERABLES Performing Organization Address City/State/[facility] Co de Phone Number [place], [place] documented in this encounter Visit Diagnoses Not on filedocumented in this encounter Care Teams Lithograph Press Operator Relationship Specialty Start Date End Date Unknown None PCP - General 05/17/20 04/04/24 documented as of this encounter
--- OUTSIDE RECORDS SUMMARY | 2024-11-10 18:53 | XMS_ITS | Encounter Summary ---
Author Organization [facility] [place] [address] Care Team Providers Care Hydraulic Auto Jack Mechanic Name Role Phone Unknown Primary Care Provider Unavailabl e Encounter Details Date Type Department Care Team (Late st Contact Info) Description 03/17/2024 10:50 PM EDT Telehealth [place] [address] Telehealth, Neurology None Social History Tobacco Use [...] on filedocumented in this encounter Care Teams Hydraulic Auto Jack Mechanic Relationship Specialty Start Date End Date Unknown None PCP - General 05/17/20 04/04/24 documented as of this encounter
--- OUTSIDE RECORDS SUMMARY | 2024-11-10 18:53 | XMS_ITS | Encounter Summary ---
Author Organization [facility] [place] [address] Care Team Providers Care Clinical Education Coordinator Name Role Phone Unknown Primary Care Provider Unavailabl e Encounter Details Date Type Department Care Team (Late st Contact Info) Description 02/21/2024 Ancillary Procedure Radiology Library at [facility] [place] [phone] Nathalie Deutsch MD [facility] [place] [address] Social History Tobacco Use Types Packs/Day Years [...] STORAGE ONLY CT ABDOMEN AND PELVIS Routine 02/21/2024 12:00 AM EDT documented in this encounter Results * Film Library- Storage Only CT Abdomen & Pelvis (02/21/2024 12:00 AM EDT) Narrative [facility] - 08/03/2024 4:10 AM EST This exam is auto-finalizing. It's purpose is for storage only. Nathalie Deutsch MD IMG FILM LIBRARY OR DERABLES Performing Organization Address City/State/[facility] Co de Phone Number [place], [place] documented in this encounter Visit Diagnoses Not on filedocumented in this encounter Care Teams Clinical Education Coordinator Relationship Specialty Start Date End Date Unknown None PCP - General 05/17/20 04/04/24 documented as of this encounter
--- OUTSIDE RECORDS SUMMARY | 2024-11-10 18:53 | XMS_ITS | Encounter Summary ---
Author Organization [facility] [place] [address] Care Team Providers Care Health Screener Name Role Phone Maryanne Buckley Primary Care Provider +1- [phone] Encounter Details Date Type Department Care Team (Late st Contact Info) Description 07/22/2024 [place] [address] Wero Church MD [facility] [place] [address] Social History Tobacco Use Types Packs/Day Years [...] encounter Miscellaneous Notes * Telephone Encounter - Wero Church MD - 07/22/2024 1:56 PM EDT I called and left a message. No malignancy found on biopsies I am under the impression she is following up with her local surgeon, though I provided a call backnumber for any questions or further assistance documented in this encounter Plan of Treatment Not on file documented as of this encounter Visit Diagnoses Not on filedocumented in this encounter Care Teams Health Screener Relationship Specialty Start Date End Date Maryanne Buckley PA [address] [place] [address] PCP - General Family Medicine 04/05/24 documented as of this encounter
--- OUTSIDE RECORDS SUMMARY | 2024-11-10 18:53 | XMS_ITS | Encounter Summary ---
Author Organization [facility] [place] [address] Care Team Providers Care Bag Worker Name Role Phone Maryanne Buckley Primary Care Provider +1- [phone] Reason for Visit * Auth/Cert (Routine) Specialty [...] ENDOSCOPIC ULTRASOUND (WRVU 3.47) Wero Church MD [facility] [address] [facility] Referral ID Status Reason Start Date Expiration Date Visits Re quested Visits Authorized [id number] 1 1 Encounter Details Date Type Department Care Team (Latest Contact Info) Description 07/20/2024 1:37 PM EDT - 07/20/2024 6:07 PM EDT Hospital En[place] [address] Wero Church MD [facility] [place] [address] Discharge Disposition: Home Social History Tobacco Use [...] Sign Reading Time Taken Comments Blood Pressure 143/77 07/20/2024 5:30 PM EDT Pulse 68 07/20/2024 4:10 PM EDT Temperature 36.2 ??C (97.2 ??F) 07/20/2024 4:10 PM ED T Respiratory Rate 18 07/20/2024 5:36 PM EDT Oxygen Saturation 100% 07/20/2024 5:36 PM EDT Inhaled Oxygen Concentration - - Weight 68.5 kg (151 lb) 07/20/2024 4:10 PM EDT Height - - Body Mass Index 25.92 04/06/2024 11:43 AM EDT documented in this encounter Discharge Instructions * Discharge Instructions* Homa Reina RN - 07/20/2024 5:28 PM EDT Upper GI Endoscopy: What to Expect at Home Your Recovery You will be able to go home after your doctor or nurse checks to make sure you are not having any problems. You may have to stay overnight if you had treatment during the test. You may have a sore throat fora day or two after the test. This care sheet gives you a general idea about what to expect after the test. How can you care for yourself at home? Activity Rest when you feel tired. You can do your normal activities when it feels okay to do so. Diet Follow your doctor's directions for eating. Unless your doctor has told you not to, drink plenty of fluids. This helps to replace the fluids that were lost during the prep. Do not drink alcohol. Medicines Your doctor will tell you if and when you can restart your medicines. He or she will also give you instructions about taking any new medicines. If you take blood thinners, such as warfarin (Coumadin), clopidogrel (Plavix), or aspirin, be sure to talk to your doctor. He or she will tell you if and when to start taking those medicines again. Make sure that you understand exactly what your doctor wants you to do. If polyps were removed or a biopsy was done during the test, your doctor may tell you not to take aspirin or other anti-inflammatory medicines for a few days. These include ibuprofen (Advil, Motrin) and naproxen (Aleve). If you have a sore throat the day after the procedure, use an aywi-ezy-zmsabdc spray to numb your throat. Sucking on throat lozenges and gargling with warm salt water may also help relieve your symptoms. Other instructions For your safety, do not drive or operate machinery until the medicine wears off and you can think clearly. Your doctor may tell you not to drive or operate machinery until the day after your test. Do not sign legal documents or make major decisions until the medicine wears off and you can think clearly. The anesthesia can make it hard for you to fully understand what you are agreeing to. Additional Information for Sedation Patients For patients who received sedation: You may have received medications before and/or during your procedure which effects your judgement and reaction time. Do not drive, operate machinery, drink alcoholic beverages or make important decisions for 24 hours. Be careful on stairs as you may be unsteady on your feet. You may eat a regular diet as tolerated. Do not smoke if you are alone. IV site: Slight redness or tenderness is normal, you can use a warm compress if you would like. If tenderness and/or redness increase or if foul drainage occurs, please contact your Doctor. Please call [phone] before 8pm Mon-Fri with problems, questions or concerns. If you call after 8pm or on weekends, call the Hospital at [phone] and ask to speak to the Small Lot Operator media monitor and the sewing machine operator floorperson will contact that person for you. When should you call for help? Call 504 anytime you think you may need emergency care. For example, call if: You passed out (lost consciousness). You pass maroon or bloody stools. You have trouble breathing. Call your doctor now or seek immediate medical care if: You have pain that does not get better after you take pain medicine. You are sick to your stomach or cannot drink fluids. You have new or worse belly pain. You have blood in your stools. You have a fever. You cannot pass stools or gas. Watch closely for changes in your health, and be sure to contact your doctor if you have any problems. Where can you learn more? [facility] View your After Visit Summary and more online at [email or web address] If you would like to provide feedback about your hospital experience, please call the Office of Patient and Family Relations at . If you have received this After Visit Summary in error, please immediately return it in person to the department, or notify the [facility] Privacy Office by calling toll free at between the hours of 8AM and 5PM to arrange for our retrieval of the documents at no cost to you. Content Version: 12.2 ?? [phone] [employer]. Care instructions adapted under license by [facility]. If you have questions about a medical condition or this instruction, always ask your healthcare professional. [employer] disclaims any warranty or liability for your use of this information.Patient alert and oriented, vital signs stable. Reviewed discharge instructions; patient and verbalized understanding. Copy of instruction sheet with contact numbers for questions/concerns. Pain assessment documented. Patient escorted out of department via wheelchair with . documented in this encounter Medications at Time of Discharge Medication Sig Dispensed Refills Start Date End Date fexofenadine (Lesley) 60 mg tablet Take 180 [...] Tablet Take 5 mg by mouth daily. doxepin (Sinequan) 10 mg capsule take 1 capsule by mouth once daily at bedtime 07/07/2024 09/07/2024 pantoprazole EC (Protonix) [address] tablet 40 mg. 05/03/2024 09/08/2024 aspirin EC 81 mg Tablet, Delayed Release [...] as of this encounter Progress Notes * Rowan Malik RN - 07/08/2024 12:31 PM EDT Pre-Procedure Phone Process Inspector Interviewed: patient Date of procedure: 07/20/24 Hydraulic Lift Operator Needed: YES [] NO [x] Patient message sent [] Pre-Procedure Health Questions Oxygen or CPAP use: YES [] NO [x] Taking anti-platelet or anti-coagulant medications: YES [] NO [x] Diabetic: YES [] NO [x] On GLP-1 medications: YES [] NO [x] Current height and weight 5'4, 152lb BMI > 40 [] Drug use: no Marijuana use: no Alcohol drinks/week: no Recommend IVCS [] Anesthesia [x] Sedation education done [] Colonoscopy Prep instructions reviewed and patient verbalizes understanding [] documented in this encounter H&P Notes * Wero Church MD - 07/20/2024 4:17 PM EDT Procedure: egd/eus Indication: peptic stricture History of Present Illness: Jaclyn Carver is a 53 y.o. woman with a possible peptic stricture here for egd/eus +/- dilation. She already has plans to follow up with her local surgeon for further management unless there are unexpected findings. Patient Active Problem List Diagnosis Code NSTEMI (non-ST elevated myocardial infarction) I21.4 Medications: Reviewed in EDH Allergies Allergen Reactions Prednisone Altered mental status Social History/Family History: Reviewed in EDH. No changes Exam: Patient Vitals for the past 24 hrs: Temp Pulse Resp BP SpO2 O2 Device 07/20/24 1610 36.2 ??C (97.2 ??F) 68 19 131/69 98 % RA Axox3, nad Anicteric, MMM CTAB RRR, no m/r/g abd soft nt nd +bs Assessment and Plan: Proceed with EGD: ASA Grade: ASA 2 - Patient with mild systemic disease with no functional limitations Mallampati score:II (soft palate, uvula, fauces visible) Sedation plan: MAC Risks and benefits of the procedure were discussed with the patient. Consent has been signed. Wero Church MD documented in this encounter Plan of Treatment Not on file documented as of this encounter Procedures Procedure Name Priority Date/Time Associated Diagnosis Comments SURGICAL PATHOLOGY Routine 07/20/2024 4: 32 PM EDT UPPER EUS-ENDOSCOPIC ULTRASOUND Routine 07/20/2024 4:21 PM EDT Egd Dilation Gastric/Duodenal Stricture (83555) 07/20/2024 4:18 PM EDT EGD/EUS +/- dilation of duodenal stricture. 60 minutes, in about 4 weeks Endoscopic Us Exam, Esoph ([id number]) 07/20/2024 4:18 PM EDT EGD/EUS +/- dilation of duodenal stricture. 60 minutes, in about 4 weeks Upper Gi Endoscopy, Biopsy ([id number]) 07/20/2024 4:18 PM EDT EGD/EUS +/- dilation of duodenal stricture. 60 minutes, in about 4 weeks documented in this encounter Results * Surgical Pathology (07/20/2024 4:32 PM EDT) Case Report Surgical Pathology Report ? Case: [id number] ? Authorizing Provider: ??Wero Church MD ? Collected: ? 07/20/2024 1632 ? Ordering Location: ? Gastroenterology at [facility] ?? Received: ?07/20/2024 1730 ? Pathologist: ? Marixa Carrillo MD ? Specimen: ?Small Bowel, Duodenum, peptic stricture ? 07/22/2024 10:34 AM EDT [facility] Final Diagnosis A. Small Bowel, Duodenum, peptic stricture Biopsy: Duodenal mucosa with foveolar metaplasia and Thom's gland hyperplasia consistent with peptic-type duodenitis, and ulceration. Multiple deeper levels examined. 07/22/2024 10:34 AM EDT [facility] Clinical Information A. Small Bowel, Duodenum, peptic stricture Rule out malignancy Peptic duodenal stricture 07/22/2024 10:34 AM EDT [facility] Gross Description A. Small Bowel, Duodenum, peptic stricture. A - Labeled/Fixative: Small bowel duodenum, formalin. Quantity/Size: Fragments, ranging from 0.2 to 0.4 cm. Tissue Description: Soft, pink tissues. Sections/Processin -72 hours fixation ensured. Submitted in toto in 2 cassettes labeled A1-A2. 07/22/2024 10:34 AM EDT [facility] Result Note Routine 07/22/2024 10:34 AM EDT [facility] Tissue DUODENAL STRUCTURE / Unknown 07/20/2024 4:32 PM EDT 07/20/2024 5:30 PM EDT Comment:Peptic duodenal stri cture Wero Church MD PATHOLOGY/CYTOLOGY O RDERABLES [facility] [place] [address] * UPPER EUS-ENDOSCOPIC ULTRASOUND (07/20/2024 4:21 PM EDT) UPPER ENDOSCOPIC ULTRASOUND [facility] Procedure Date: 07/20/2024 4:21 PM ? Patient Name: Jaclyn Carver ? Date of : 1970 ? Age: 53 ? Order #: [id number] ? Instrument Name: [id number] ? Procedure: ? Upper EUS Indications: ? Suspected gastric outlet obstruction Providers: ? Artis Deshpande, ? CHA, Pattie Arboleda, ? Pv Design Engineer, Glenn Candelaria Referring MD: ?OMAR Epstein Medicines: ? General Anesthesia Complications: ? No immediate complications. Procedure: ? Pre-Anesthesia Assessment: ? - Prior to the procedure, a History ? and Physical was performed, and ? patient medications and allergies ? were reviewed. The patient is ? competent. The risks and benefits ? of the procedure and the sedation ? options and risks were discussed ? with the patient. All questions ? were answered and informed consent ? was obtained. Patient ? identification and proposed ? procedure were verified in the ? pre-procedure area. Mental Status ? Examination: alert and oriented. ? Airway Examination: normal ? oropharyngeal airway and neck ? mobility. Respiratory Examination: ? clear to auscultation. CV ? Examination: normal. Prophylactic ? Antibiotics: The patient does not ? require prophylactic antibiotics. ? Prior Anticoagulants: The patient ? has taken no anticoagulant or ? antiplatelet agents. ASA Grade ? Assessment: III - A patient with ? severe systemic disease. After ? reviewing the risks and benefits, ? the patient was deemed in ? satisfactory condition to undergo ? the procedure. The anesthesia plan ? was to use general anesthesia. ? Immediately prior to administration ? of medications, the patient was ? re-assessed for adequacy to receive ? sedatives. The heart rate, ? respiratory rate, oxygen ? saturations, blood pressure, ? adequacy of pulmonary ventilation, ? and response to care were monitored ? throughout the procedure. The ? physical status of the patient was ? re-assessed after the procedure. ? The procedure, indications, ? benefits, risks and alternatives ? were explained to the patient. ? Specifically discussed were ? potential complications including, ? but not limited to, bleeding, ? perforation, infection, missing a ? cancer, and adverse medication ? reactions. The Endoscope was ? introduced through the mouth, and ? advanced to the second part of ? duodenum The Endoscope was ? introduced through the mouth, and ? advanced to the duodenal bulb The ? patient tolerated the procedure ? well. ? Findings: ? The examined esophagus was normal. ? Food (residue) was found in the gastric body. ? One nearly obstructing (greater than 90% obstructed) ? non-bleeding duodenal ulcer was found in the first ? portion of the duodenum. Biopsies were taken with a ? cold forceps for histology. A TTS dilator was passed ? through the scope. Dilation with an 8 mm balloon ? dilator was performed. The stricture was traversed ? with an ultraslim scope. The second portion of the ? duodenum was normal appearing. ? ENDOSONOGRAPHIC FINDING: : ? There was no sign of significant endosonographic ? abnormality in the pancreatic head. The pancreatic ? duct measured up to 2 mm in diameter. (note: due to ? the duodenal stenosis, the pancreatic head could not ? be completely examined by ultrasonography) ? There was no sign of significant endosonographic ? abnormality in the common bile duct. The maximum ? diameter of the duct was 5 mm. ? Localized wall thickening was visualized ? endosonographically in the apex of the duodenal bulb. ? The thickness of the abnormal layers. The duodenal ? wall measured up to 6 mm in thickness. ? Moderate Sedation: ? Not applicable - See Anesthesia documentation Impression: ?- Normal esophagus. ? - Food (residue) in the stomach. ? - Nearly completely obstructing ? peptic stricture of the first ? portion of the duodenum ? approximately 2-3 cm in length; ? benign appearing. Biopsied. ? Endosonographic examination ? revealed focal wall thickening, but ? no appreciable mass. Recommendation: ?- Discharge patient to home. ? - Pureed diet. ? - Use a proton pump inhibitor PO ? BID. ? - Await pathology results. ? - Follow up with general surgery ? Attending Participation: ? I personally performed the entire procedure. ? Wero Church, 07/20/2024 5:27:19 PM Number of Addenda: 0 Note Initiated On: 07/20/2024 4:21 PM PROVATION 07/20/2024 4:21 PM EDT Unknown GENERAL SURGICAL ORD ERABLES PROVATION documented in this encounter Visit Diagnoses Not on filedocumented in this encounter Active and Recently Administered Medications Times are shown in EDT. Continuous Medication Order 07/18/2024 07/19/2024 07/20/2024 lactated ringers infusion (CANCELED) 100 mL/hr, Intravenous, CONTINUOUS, Starting on Fri07/20/24 at 1615, Until Fri07/20/24 at 1806, Day of Surgery (Day of Procedure) 1618 (New Bag - Prov ider: Rupal Alfonso CRNA)1718 (Anesthesia Volume Adjustment - Provider: Rupal Alfonso CRNA) documented in this encounter Care Teams Bag Worker Relationship Specialty Start Date End Date Maryanne Buckley PA [address] [place] [address] PCP - General Family Medicine 04/05/24 documented as of this encounter
--- OUTSIDE RECORDS SUMMARY | 2024-11-10 18:53 | XMS_ITS | Encounter Summary ---
Author Organization [facility] [place] [address] Care Team Providers Care Vein Pumper Name Role Phone Unknown Primary Care Provider Unavailabl e Encounter Details Date Type Department Care Team (Late st Contact Info) Description 03/17/2024 8:05 PM EDT Ancillary Procedure Radiology Library at [facility] [place] [address] Tam Ritchie MD [facility] [place] [place] [address] Social History Tobacco Use Types Packs/Day Years [...] and Spine (03/17/2024 7:57 PM EDT) Narrative [facility] - 03/17/2024 7:57 PM EDT This exam is auto-finalizing. It's purpose is for storage only. Tam Ritchie MD [facility] FILM LIBRARY ORD ERABLES [place], [place] documented in this encounter Visit Diagnoses Not on filedocumented in this encounter Care Teams Vein Pumper Relationship Specialty Start Date End Date Unknown None PCP - General 05/17/20 04/04/24 documented as of this encounter
--- OUTSIDE RECORDS SUMMARY | 2024-11-10 18:53 | XMS_ITS | Encounter Summary ---
Author Organization [facility]ly [facility] [place] [address] Care Team Providers Care Product Lister Name Role Phone Maryanne Buckley Primary Care Provider +1- [phone] Reason for Visit * Reason Comments Establish Care * Consultation (Urgent) - Authorized Specialty Diagnoses / Procedures Referred By Carlito wolfe Referred To Contact General Surgery Diagnoses Adult hypertrophic pyloric stenosis GASTRIC OUTLET OBSTRUCTION Britton Granado MD [address] [place] [address] DR LAMBERT [address] [place] [address] [facility] Gen Surgery [address] [place] [id number] Referral ID Status Reason Start Date Expiration Date Visits Requested Visits Authorized [id number] Authorized Consult, Test & Treat PCP Updated and/or Approved 07/30/2024 02/27/2025 6 6 Encounter Details Date Type Department Care Team (Late st Contact Info) Description 08/16/2024 12:00 PM EST Office [place] [address] Nathalie Deutsch MD [facility] [place] [address] Duodenal stricture Social History Tobacco Use Types Packs/Day Years [...] Sign Reading Time Taken Comments Blood Pressure 152/80 08/16/2024 11:44 AM EST Pulse 80 08/16/2024 11:44 AM EST Temperature 37.5 ??C (99.5 ??F) 08/16/2024 11:[address] Respiratory Rate 16 08/16/2024 11:44 AM EST Oxygen Saturation 100% 08/16/2024 11:44 AM EST Inhaled Oxygen Concentration - - Weight 69.1 kg (152 lb 4.8 oz) 08/16/2024 11:44 AM EST Height 162.6 cm (5' 4.02) 08/16/2024 11:[address] Body Mass Index 26.13 08/16/2024 11:44 AM EST documented in this encounter Progress Notes * Nathalie Deutsch MD - 08/16/2024 12:00 PM EST Images from the original note were not included. Jaclyn Carver is a 53 y.o. female [...] She was diagnosed with an ulcer in [id number], although she is unclear where this was [...] Hyperthyroid Hypertension High colesterol CPTSD Past Surgical History: Procedure Laterality Date PRO ENDOSCOPIC US EXAM, ESOPH N/A 07/20/2024 UPPER EUS- ENDOSCOPIC ULTRASOUND (WRVU 3.47) performed by Wero Church MD at [facility] ENDOSCOPY PRO UPPER GI ENDOSCOPY, BIOPSY N/A 07/20/2024 EGD WITH BIOPSY (WRVU 2.39) performed by Wero Church MD at [facility] ENDOSCOPY PRO UPPER GI ENDOSCOPY, W/DILAT, GASTRIC OUT N/A 07/20/2024 EGD,WITH DILATION GASTRIC/DUODENAL STRICTURES (WRVU 3.08) [facility] Lap cholecystectomy Medications: Current Outpatient Medications: eszopiclone (Lunesta) 3 mg [...] Prednisone --> hallucinations Family History: Family History Problem Relation Age of Onset Coronary Artery Disease Father ID at the age of 42 Coronary Artery [...] like to proceed. documented in this encounter Plan of Treatment Not on file documented as of this encounter Visit Diagnoses Diagnosis Duodenal stricture Other obstruction of duodenum documented in this encounter Care Teams Product Lister Relationship Specialty Start Date End Date Maryanne Buckley PA [address] [place] [address] PCP - General Family Medicine 04/05/24 documented as of this encounter
--- OUTSIDE RECORDS SUMMARY | 2024-11-10 18:53 | XMS_ITS | Encounter Summary ---
Author Organization [facility] [place] [address] Care Team Providers Care Bed Laborer Name Role Phone Maryanne Buckley Primary Care Provider +1- [phone] Encounter Details Date Type Department Care Team (Late st Contact Info) Description 05/10/2024 Ancillary Procedure Radiology Library at [facility] [place] [address] Nathalie Deutsch MD [facility] [place] [address] Social History Tobacco Use Types Packs/Day Years [...] Associated Diagnosis Comments FILM LIBRARY STORAGE ONLY DX GI STUDY Routine 05/10/2024 12:00 AM EDT documented in this encounter Results * Film Library- Storage Only DX GI Study (05/10/2024 12:00 AM EDT) Narrative [facility] - 08/03/2024 4:06 AM EST This exam is auto-finalizing. It's purpose is for storage only. Nathalie Deutsch MD IMG FILM LIBRARY OR DERABLES [place], [place] documented in this encounter Visit Diagnoses Not on filedocumented in this encounter Care Teams Bed Laborer Relationship Specialty Start Date End Date Maryanne Buckley PA [address] [place] [address] PCP - General Family Medicine 04/05/24 documented as of this encounter
--- OUTSIDE RECORDS SUMMARY | 2024-11-10 18:53 | XMS_ITS | Encounter Summary ---
[place] [address] Care Team Providers Care Wood Gang Sawyer Name Role Phone Maryanne Buckley Primary Care Provider +1- [phone] Reason for Referral * Consultation (Urgent) - Authorized Specialty Diagnoses / Procedures Referred By Carlito wolfe Referred To Contact General Surgery Diagnoses Adult hypertrophic pyloric stenosis GASTRIC OUTLET OBSTRUCTION Britton Granado MD [address] [place] [address] [address] [place] [address] [facility] Gen Surgery [address] [place] [phone] Referral ID Status Reason Start Date Expiration Date Visits Requested Visits Authorized [id number] Authorized Consult, Test & Treat PCP Updated and/or Approved 07/30/2024 02/27/2025 6 6 Encounter Details Date Type Department Care Team (Late st Contact Info) Description 07/30/2024 Transcribe Orders eDH Incoming Referrals [phone] Britton Granado MD [address] [place] [address] [address] [place], [place] [id number] Adult hypertrophic pyloric stenosis Social History Tobacco Use Types Packs/Day Years [...] Associated Diagnoses Orde r Schedule Referral to General Surgery Outpatient Referral Urgent Adult hypertrophic pyloric stenosis Ordered: 07/30/2024 documented as of this encounter Visit Diagnoses Diagnosis Adult hypertrophic pyloric stenosis Acquired hypertrophic pyloric stenosis documented in this encounter Care Teams Wood Gang Sawyer Relationship Specialty Start Date End Date Maryanne Buckley PA [address] [place] [address] PCP - General Family Medicine 04/05/24 documented as of this encounter
--- OUTSIDE RECORDS SUMMARY | 2024-11-10 18:53 | XMS_ITS | Encounter Summary ---
Author Organization [place] [address] Care Team Providers Care Location Worker Name Role Phone Maryanne Buckley Primary Care Provider +1- [phone] Reason for Visit * Reason Onset Date Comments Referral 03/18/2024 Encounter Details Date Type Department Care Team (Late st Contact Info) Description 03/18/2024 Telephone [place] [address] Unknown None Referral Social History Tobacco Use [...] PT: n/a Best number to reach caller: [phone] Reason for the Call: Checking status of referral sent from an emergency room last night To check on the status of their referral: If not, what is the reason for their call: n/a Previous Neurology Information Questions: Has the patient seen another Neurologist: Yes If yes, when and where: teleneurology consult 03/17/24 Has the patient had any imaging done outside of [facility]: Yes If yes, when and where: MRI 03/17/24 [facility] documented in this encounter Plan of Treatment Not on file documented as of this encounter Visit Diagnoses Not on filedocumented in this encounter Care Teams Location Worker Relationship Specialty Start Date End Date Maryanne Buckley PA [address] [place] [address] PCP - General Family Medicine 04/05/24 documented as of this encounter
--- OUTSIDE RECORDS SUMMARY | 2024-11-10 18:53 | XMS_ITS | Encounter Summary ---
[place] [address] Care Team Providers Care Furniture Repairer Name Role Phone Maryanne Buckley Primary Care Provider +1- [phone] Reason for Referral * Consultation (Urgent) - Closed Specialty Diagnoses / Procedures Referred By Carlito wolfe Referred To Contact Gastroenterology Diagnoses Peptic duodenitis SEVERE PEPTIC DUODENITIS, UNABLE TO PASS SCOPE COMPLETELY ON RECENT EGD EGD/EUS +/- dilation of duodenal stricture. 60 minutes, in about 4 weeks Procedures EUS Britton Granado MD [address] [place] [address] [address] [place] [address] [facility] Endoscopy [address] [place] [address] Referral ID Status Reason Start Date Expiration Date V isits Requested Visits Authorized [id number] Closed Test Only PCP Updated and/or Approved 05/24/2024 05/24/2025 6 6 Encounter Details Date Type Department Care Team (Late st Contact Info) Description 05/24/2024 Transcribe Orders eDH Incoming Referrals [phone] Britton Granado MD [address] [place] [address] [address] [place] [address] Peptic duodenitis Social History Tobacco [...] duodenitis documented in this encounter Care Teams Furniture Repairer Relationship Specialty Start Date End Date Maryanne Buckley PA [address] [place] [address] PCP - General Family Medicine 04/05/24 documented as of this encounter
--- OUTSIDE RECORDS SUMMARY | 2024-11-10 18:53 | XMS_ITS | Encounter Summary ---
[facility] [place] [address] Care Team Providers Care Senior Network Systems Engineer Name Role Phone Unknown Primary Care Provider Unavailabl e Reason for Referral * Diagnostic Test (Routine) - Pending Review Specialty Diagnoses / Procedures Referred By Carlito wolfe Referred To Contact Radiology Diagnoses Cervical spinal mass Procedures MRI Cervical Spine wwo Contrast Lexi Ribera MD [facility] [place] [address] [place] [address] Referral ID Status Reason Start Date Expiration Date Visits Requested Visits Authorized [id number] Pending Review Specialty Service Requested 03/17/2024 09/16/2025 1 1 Encounter Details Date Type Department Care Team (Late st Contact Info) Description 03/17/2024 [place] [address] Lexi Ribera MD [facility] [place] [address] Social History Tobacco Use Types [...] in this encounter Plan of Treatment Scheduled Orders Name Type Priority Associated Diagnoses Orde r Schedule MRI Cervical Spine wwo Contrast Imaging Routine Cervical spinal mass Expected: 04/16/2024 (Approximate), Expires: 10/16/2024 documented as of this encounter Visit Diagnoses Diagnosis Cervical spinal mass Swelling, mass, or lump in head and neck documented in this encounter Care Teams Senior Network Systems Engineer Relationship Specialty Start Date End Date Unknown None PCP - General 05/17/20 04/04/24 documented as of this encounter
--- OUTSIDE RECORDS SUMMARY | 2024-11-10 18:53 | XMS_ITS | Encounter Summary ---
Author Organization [facility] [place] [address] Care Team Providers Care Laser Systems Engineer Name Role Phone Maryanne Buckley Primary Care Provider +1- [phone] Reason for Visit * Reason Onset Date Comments Appointment 08/13/2024 Encounter Details Date Type Department Care Team (Late st Contact Info) Description 08/13/2024 [place] [address] Anthony Escalante MD [facility] [address] Appointment Social History Tobacco Use Types Packs/Day Years Used Date Smoking Tobacco: Never Smokeless Tobacco: Never Alcohol Use Standard Drinks/Week Comments Not Currently 0 (1 standard drink = 0.6 oz pur e alcohol) Rarely [facility] Inpatient Questions Answer Date Recorded Prevent Contact [...] Notes * Telephone Encounter - Analilia Leone 09/06/2024 2:16 PM EST Pt is scheduled on 10/05 at 1130 am for OV with Anthony Escalante MD No appt card needed Closing encounter * Telephone Encounter - Noni Rey - 08/30/2024 12:41 PM EST [facility] Radiology Department scheduling contacted patient on 08/20/2024 and left message. Once imaging has been scheduled at [facility], pt to schedule NS appt from recall. Update appt notes withdate of imaging. Postponing 1 week * Telephone Encounter - Noni Rey - 08/27/2024 9:24 AM EST [facility] Radiology Department scheduling closed and will reopen 08/30/2024. Sent MRI C spine to [facility] through external referral. Once imaging has been scheduled at [facility], pt to schedule NS appt from recall. Update appt notes withdate of imaging. Postponing to f/u with [facility] to verify MRI order received/ scheduled * Telephone Encounter - Analilia Leone - 08/19/2024 12:38 PM EST Sent MRI C spine to [facility] through external referral. Once imaging has been scheduled at [facility], pt to schedule NS appt from recall. Update appt notes withdate of imaging. Postponing 1 wk to f/u with [facility] to verify MRI order received/ scheduled * Telephone Encounter - Analilia Leone - 08/13/2024 11:49 AM EST PA to be completed on/ around 08/20/24 for MRI C spine. Once imaging approved orders will be sent to [facility] per pt request. documented in this encounter Plan of Treatment Not on file documented as of this encounter Visit Diagnoses Not on filedocumented in this encounter Care Teams Laser Systems Engineer Relationship Specialty Start Date End Date Maryanne Buckley PA [address] [place] [address] PCP - General Family Medicine 04/05/24 documented as of this encounter
--- OUTSIDE RECORDS SUMMARY | 2024-11-10 18:53 | XMS_ITS | Encounter Summary ---
Author Organization [facility] [place] [address] Care Team Providers Care Field Support Specialist Name Role Phone Unknown Primary Care Provider Unavailabl e Reason for Visit * Reason Onset Date Comments Referral 03/19/2024 Appointment 03/19/2024 Encounter Details Date Type Department Care Team (Late st Contact Info) Description 03/19/2024 [place] [address] Lexi Ribera MD [facility] [place] [place] [address] Referral; Appointment Social History Tobacco Use Types [...] EDT Pt is scheduled on 03/23 for [facility] video New with Dr. Escalante. No [...] Sent: FriMarch 18, 2024 7:38 AM To: [facility] Neurosurgery Writer Producer Message I should see the pt (not SHAKEEL) in next couple weeks. RUBENS Jaclyn Carver - 03/17/24 Lexi Ribera MD Sent: FriMarch 17, 2024 9:21 PM To: [facility] Neurosurgery Writer Producer Message Los, Please help me schedule a follow up appointment as per below. ID: Jaclyn Carver, 53 y.o. female, Contact info: see epic Reason: F/u intradural, extramedullary upper C-spine mass Provider: Advanced Practice Provider (BALANCE WEIGHER or PA) Timeframe: 1 month Imaging: MRI CSP wwo contrast (ordered) Thank you, Lexi Ribera MD 03/17/2024 9:21 PM documented in this encounter Plan of Treatment Not on file documented as of this encounter Visit Diagnoses Not on filedocumented in this encounter Care Teams Field Support Specialist Relationship Specialty Start Date End Date Unknown None PCP - General 05/17/20 04/04/24 documented as of this encounter
--- OUTSIDE RECORDS SUMMARY | 2024-11-10 18:53 | XMS_ITS | Encounter Summary ---
Author Organization [facility] [place] [address] Care Team Providers Care Senior Wind Turbine Technician Name Role Phone Maryanne Buckley Primary Care Provider +1- [phone] Reason for Visit * Auth/Cert (Routine) Specialty [...] ENDOSCOPIC ULTRASOUND (WRVU 3.47) Wero Church MD [facility] [place] [address] [facility] Referral ID Status Reason Start Date Expiration Date Visits Re quested Visits Authorized [id number] 1 1 Encounter Details Date Type Department Care Team (Late st Contact Info) Description 07/20/2024 4:00 PM EDT - 07/20/2024 5:00 PM EDT Surgery [place] [address] Wero Church MD [facility] [place] [address] EGD WITH BIOPSY (WRVU 2.39) Social History Tobacco Use Types Packs/Day Years [...] Sign Reading Time Taken Comments Blood Pressure 131/69 07/20/2024 4:10 PM EDT Pulse 68 07/20/2024 4:10 PM EDT Temperature 36.2 ??C (97.2 ??F) 07/20/2024 4:10 PM ED T Respiratory Rate 19 07/20/2024 4:10 PM EDT Oxygen Saturation 98% 07/20/2024 4:10 PM EDT Inhaled Oxygen Concentration - - [...] the day after the procedure, use an cikq-wgn-rnzgdge spray to numb your throat. Sucking on [...] occurs, please contact your Doctor. Please call [phone] before 8pm Mon-Fri with problems, questions or concerns. If you call after 8pm or on weekends, call the Hospital at [phone] and ask to speak to the Teaching Fellow workers' compensation claims supervisor and the steam oven operator will contact that person for you. When should you call for help? Call [phone] anytime you think you may need emergency [...] any problems. Where can you learn more? [facility] View your After Visit Summary and more online at [email or web address] If you would like to provide feedback about your hospital experience, please call the Office of Patient and Family Relations at . If you have received this After Visit Summary in error, please immediately return it in person to the department, or notify the [facility] Privacy Office by calling toll free at between the hours of 8AM and 5PM to arrange for our retrieval of the documents at no cost to you. Content Version: 12.2 ?? 5466-8452 [email or web address]. Care instructions adapted under license by [facility]. If you have questions about a medical condition or this instruction, always ask your healthcare professional. [email or web address] disclaims any warranty or liability for your [...] of this encounter Progress Notes * Rowan Malik, RN - 07/08/2024 12:31 PM EDT Pre-Procedure Phone Vehicle Body Sander Interviewed: patient Date of procedure: 07/20/24 Tube Room Cashier Needed: YES [] NO [x] Patient message [...] 4:21 PM EDT Egd Dilation Gastric/Duodenal Stricture (38938) 07/20/2024 4:18 PM EDT EGD/EUS +/- dilation of duodenal stricture. 60 minutes, in about 4 weeks Endoscopic Us Exam, Esoph ([id number]) 07/20/2024 4:18 PM EDT EGD/EUS +/- dilation of duodenal stricture. 60 minutes, in about 4 weeks Upper Gi Endoscopy, Biopsy ([id number]) 07/20/2024 4:18 PM EDT EGD/EUS +/- dilation of duodenal stricture. 60 minutes, in about 4 weeks documented in this encounter Results * Surgical Pathology (07/20/2024 4:32 PM EDT) Case Report Surgical Pathology Report ? Case: [id number] ? Authorizing Provider: ??Wero Church MD ? Collected: ? 07/20/2024 1632 ? Ordering Location: ? Gastroenterology at [facility] ?? Received: ?07/20/2024 1730 ? Pathologist: ? Marixa Carrillo MD ? Specimen: ?Small Bowel, Duodenum, peptic stricture ? 07/22/2024 10:34 AM EDT [facility] Final Diagnosis A. Small Bowel, Duodenum, peptic stricture Biopsy: Duodenal mucosa with foveolar metaplasia and Thom's gland hyperplasia consistent with peptic-type duodenitis, and ulceration. Multiple deeper levels examined. 07/22/2024 10:34 AM EDT [facility] Clinical Information A. Small Bowel, Duodenum, peptic stricture Rule out malignancy Peptic duodenal stricture 07/22/2024 10:34 AM EDT [facility] Gross Description A. Small Bowel, Duodenum, peptic stricture. A - Labeled/Fixative: Small bowel duodenum, formalin. Quantity/Size: Fragments, ranging from 0.2 to 0.4 cm. Tissue Description: Soft, pink tissues. Sections/Processin -72 hours fixation ensured. Submitted in toto in 2 cassettes labeled A1-A2. 07/22/2024 10:34 AM EDT [facility] Result Note Routine 07/22/2024 10:34 AM EDT [facility] Tissue DUODENAL STRUCTURE / Unknown 07/20/2024 4:32 PM EDT 07/20/2024 5:30 PM EDT Comment:Peptic duodenal stri cture Wero Church MD PATHOLOGY/CYTOLOGY O RDERABLES Performing Organization Address City/State/[facility] Co de Phone Number [facility] [place] [address] * UPPER EUS-ENDOSCOPIC ULTRASOUND (07/20/2024 4:21 PM EDT) UPPER ENDOSCOPIC ULTRASOUND [facility] Endoscopy Procedure Date: 07/20/2024 4:21 PM ? Patient Name: Jaclyn Carver ? Date of : 1970 ? Age: 53 ? Order #: [id number] ? Instrument Name: [id number] ? Procedure: ? Upper EUS Indications: ? Suspected gastric outlet obstruction Providers: ? Artis Deshpande, ? Pattie EUBANKS, ? Seam Taper Machine, Glenn Candelaria Referring MD: ?OMAR Epstein Medicines: [...] personally performed the entire procedure. ? Wero Mcfarland Ranjit, 07/20/2024 5:27:19 PM Number of Addenda: 0 [...] CRNA) documented in this encounter Care Teams Senior Wind Turbine Technician Relationship Specialty Start Date End Date Maryanne Buckley PA [address] [place] [address] PCP - General Family Medicine 04/05/24 documented as of this encounter
--- OUTSIDE RECORDS SUMMARY | 2024-11-10 18:53 | XMS_ITS | Encounter Summary ---
[place] [address] Care Team Providers Care Dog Food Dough Mixer Name Role Phone Maryanne Buckley Primary Care Provider +1- [phone] Encounter Details Date Type Department Care Team (Late st Contact Info) Description 10/30/2019 External [place] [address] Social History Tobacco Use Types Packs/Day Years [...] * Scan Doc: ECG (10/30/2019) Historical Provider MD MEDIA MGR SCAN EX T ORDR/RSLT documented in this encounter Visit Diagnoses Not on filedocumented in this encounter Care Teams Dog Food Dough Mixer Relationship Specialty Start Date End Date Maryanne Buckley PA [address] [place] [address] PCP - General Family Medicine 09/29/19 05/16/20 documented as of this encounter
[2024-11-10 20:16] LABS: Abs Immature Grans 0.01 10^3/uL (0.0-0.06); Absolute Basophil Count 0.05 10^3/uL (0.0-0.2); Absolute Eosinophil Count 0.14 10^3/uL (0.0-0.7); Absolute Lymphocyte Count 0.86 10^3/uL (1.2-3.4); Absolute Monocyte Count 0.47 10^3/uL (0.1-0.8); Absolute Neutrophil Count 4.45 10^3/uL (1.2-6.7); Basophils % 0.8 %; Eosinophils % 2.3 %; HCT 32.6 % (36.0-46.0); HGB 10.4 g/dL (11.2-15.7); Immature Grans % 0.2 %; Lymphocytes % 14.4 %; MCH 28.8 pg (27.0-33.0); MCHC 31.9 % (32.0-36.0); MCV 90 fL (80-95); MPV 10.9 fL (8.0-11.0); Monocytes % 7.9 %; Neutrophils % 74.4 %; Platelet Count 271 10^3/uL (130-400); RBC 3.61 10^6/uL (3.93-5.22); RDW 13.6 % (11.7-14.6); RDW-SD 44.9 fL; WBC 5.98 10^3/uL (4.4-10.8)
[2024-11-10 20:33] LABS: Anion Gap 5.7 mmol/L (3-11); BUN 22 mg/dL (7-18); CO2 28.3 mmol/L (21.0-32.0); CREATININE 0.6 mg/dL (0.55-1.02); Calcium 9.5 mg/dL (8.5-10.1); Chloride 109 mmol/L (98-107); Estimated GFR 105.94 (mL/min/1.73m2); Glucose 116 mg/dL (74-106); Magnesium 1.9 mg/dL (1.8-2.4); Potassium 3.3 mmol/L (3.5-5.1); Sodium 143 mmol/L (136-145); TSH (W/Ref FT4) 1.08 uIU/mL (0.36-3.74)
== END 2024-11-10 18:50 | disposition home or self-care (01) ==
LOC: NCHCN 18:49
PROVIDERS: PCP Physician Assistant Medical; Visit Provider Physician Assistant Medical
DX: E03.9 Hypothyroidism, unspecified (principal); K26.9 Duodenal ulcer, unspecified as acute or chronic, without hemorrhage or perforation; E83.41 Hypermagnesemia
CPT/HCPCS: 80048; 83735; 84443; 85025

== ENCOUNTER 2025-01-17 14:24 | Outpatient (REF) | payer BC, SELFPAY ==
[2025-01-17 15:32] LABS: HCT 38.3 % (36.0-46.0); HGB 11.9 g/dL (11.2-15.7); MCH 28.7 pg (27.0-33.0); MCHC 31.1 % (32.0-36.0); MCV 93 fL (80-95); MPV 11.5 fL (8.0-11.0); Platelet Count 265 10^3/uL (130-400); RBC 4.14 10^6/uL (3.93-5.22); RDW 13.3 % (11.7-14.6); RDW-SD 45.1 fL
[2025-01-17 15:55] LABS: Iron 29 ug/dL (50-170)
[2025-01-17 16:18] LABS: ALT 32 U/L (14-59); AST 23 U/L (15-37); Albumin 3.9 g/dL (3.4-5.0); Alkaline Phosphatase 89 U/L (46-116); Anion Gap 5.3 mmol/L (3-11); BUN 18 mg/dL (7-18); Bilirubin, Total 0.1 mg/dL (0.2-1.0); CO2 30.7 mmol/L (21.0-32.0); CREATININE 0.8 mg/dL (0.55-1.02); Calcium 10.3 mg/dL (8.5-10.1); Chloride 108 mmol/L (98-107); Estimated GFR 86.96 (mL/min/1.73m2); Ferritin 7 ng/mL (8-252); Glucose 104 mg/dL (74-106); Magnesium 2.4 mg/dL (1.8-2.4); Potassium 4.1 mmol/L (3.5-5.1); Sodium 144 mmol/L (136-145); Total Protein 7.5 g/dL (6.4-8.2); Vitamin B12 243 pg/mL (193-986); Vitamin D 25 Total 11 ng/mL (30-100)
== END 2025-01-17 14:25 | disposition home or self-care (01) ==
LOC: NCHCN 14:24
PROVIDERS: PCP Physician Assistant Medical; Visit Provider Physician Assistant Medical
DX: D64.9 Anemia, unspecified (principal)
CPT/HCPCS: 80053; 82306; 85027; 82607; 82728; 83540; 83735

== ENCOUNTER 2025-03-22 02:25 | Outpatient (CLI) | payer BC, SELFPAY ==
[2025-03-22] MEDS: Gadoterate meglumine 20 ML VIAL 14 ML IVP (14:19)
[2025-03-22] MEDS: Normal Saline Flush 10 ML SYR IVP (14:20)
--- NOTE | 2025-03-22 14:55 | DI.MRI_ITS ---
Exam(s) MR CERVICAL SPINE WO/W EXAM: MR CERVICAL SPINE WO/W CLINICAL HISTORY: C1 tumor,INTRADURAL EXTRAMEDULLARY SPINAL TUMOR TECHNIQUE: Multiplanar multisequence MRI of the cervical spine was performed before and after intravenous contrast. 14 mL Dotarem IV. COMPARISON: MR MR CERVICAL SPINE WO/W from 03/17/2024 FINDINGS: BONES: Vertebral body heights are maintained. Alignment is normal. Bone marrow signal intensity is within normal limits. CERVICAL CORD: Craniovertebral junction is unremarkable. The cervical cord is normal size and signal intensity. There is a stable 10 millimeter circumscribed intradural extramedullary mass at the C1 level posterior to the cord. It again shows homogeneous enhancement following IV gadolinium. It abuts the dura and there is slight enhancement of the dura in this location which could represent a dural tail. The findings could represent a meningioma. There is mild mass effect on the cord. No new lesions are identified. SOFT TISSUES: Unremarkable. C2-3: No disc herniation or bulge is identified. No evidence of neural foraminal narrowing. No significant central canal stenosis. C3-4: No disc herniation or bulge is identified. No evidence of neural foraminal narrowing. No significant central canal stenosis. C4-5: Stable degenerative disc changes with endplate osteophytes causing some neural foraminal encroachment. No evidence of neural foraminal narrowing. No significant central canal stenosis. C5-6: No disc herniation or bulge is identified. No evidence of neural foraminal narrowing. No significant central canal stenosis. C6-7: No disc herniation or bulge is identified. No evidence of neural foraminal narrowing. No significant central canal stenosis. C7-T1: No disc herniation or bulge is identified. No evidence of neural foraminal narrowing. No significant central canal stenosis. IMPRESSION: Stable 10 millimeter intradural extramedullary mass posterior the cord at the C1 level. Findings most likely represents a meningioma. Stable mild mass effect upon the cord. DATA REPOSITORY:
== END 2025-03-22 02:45 ==
PROVIDERS: PCP Physician Assistant Medical; Visit Provider Psychiatry & Neurology Neurology
DX: D49.7 Neoplasm of unspecified behavior of endocrine glands and other parts of nervous system (principal)
CPT/HCPCS: 72156

== ENCOUNTER 2025-04-26 15:32 | Outpatient (REF) | payer BC, SELFPAY ==
[2025-04-26 20:31] LABS: HCT 33.0 % (36.0-46.0); HGB 11.1 g/dL (11.2-15.7); MCH 30.7 pg (27.0-33.0); MCHC 33.6 % (32.0-36.0); MCV 91 fL (80-95); MPV 11.0 fL (8.0-11.0); Platelet Count 259 10^3/uL (130-400); RBC 3.61 10^6/uL (3.93-5.22); RDW 12.3 % (11.7-14.6); RDW-SD 41.2 fL; WBC 5.11 10^3/uL (4.4-10.8)
[2025-04-26 21:16] LABS: Ferritin 16 ng/mL (8-252); Vitamin D 25 Total 29 ng/mL (30-100)
[2025-04-26 21:40] LABS: Iron 71 ug/dL (50-170)
== END 2025-04-26 15:33 | disposition home or self-care (01) ==
LOC: NCHCN 15:32
PROVIDERS: PCP Physician Assistant Medical; Visit Provider Physician Assistant Medical
DX: D64.9 Anemia, unspecified (principal); E55.9 Vitamin D deficiency, unspecified
CPT/HCPCS: 82306; 85027; 82728; 83540

== ENCOUNTER 2025-08-01 10:32 | Outpatient (REF) | payer BC, SELFPAY ==
[2025-08-01 16:28] LABS: Anion Gap 11.9 mmol/L (3-11); BUN 17 mg/dL (7-18); CO2 26.1 mmol/L (21.0-32.0); Calcium 10.2 mg/dL (8.5-10.1); Chloride 103 mmol/L (98-107); Glucose 100 mg/dL (74-106); Magnesium 2.3 mg/dL (1.8-2.4); Potassium 4.0 mmol/L (3.5-5.1); Sodium 141 mmol/L (136-145)
== END 2025-08-01 10:33 | disposition home or self-care (01) ==
LOC: NCHCN 10:32
PROVIDERS: PCP Physician Assistant Medical; Visit Provider Physician Assistant Medical
DX: R11.2 Nausea with vomiting, unspecified (principal)
CPT/HCPCS: 80048; 83735